=== PATIENT | female | born 1945 | race Caucasian/White ===

== ENCOUNTER 2016-03-25 08:26 | Day surgery (SDC) | payer MEDICARE, OTHER ==
[~2016-03-25] VITALS: Ht 160 cm; Wt 134.3 kg
[2016-03-25] VITALS (12 sets, daily range): BP systolic 126–156; BP diastolic 57–72
[~2016-03-25 08:26] MED LIST: ALPR0.5T7 PO; AML5T; Alprazolam PO; BUDE10.2 IH; BUME2TAB3 PO; CARV12.5 PO; CARV12.53 PO; CETI10TA17 PO; CHOL10003; CHOL20002 PO; CLIN-62 PO; DULO30CA; DULO30CA3 PO; DULO60CA58 PO; DULO60CA6 PO; ENAL5TAB PO; ENLP5T PO; EST.625T; FENT1PAT TOP; FLUT15.88 NS; FLUT16SP22 NS; FRSM20T PO; FRSM40T PO; FURO40TA4; FURO40TA4 PO; FURO80TA PO; FURO80TA3 PO; Fentanyl TD; GABA-488 PO; GBPN100C PO; HYDR-3812 PO; HYDR200T46 PO; HYDROCODONE; HYDROXYCHLOROQUINE; HYDROXYCHLOROQUINE PO; IPRA3AMP IH; IPRA3AMP11 INH; KCL10CCR; KCL10CCR PO; KCL20TCR PO; LISI20TA PO; LISI40TA PO; LSNP20T; LSNP20T PO; Levofloxacin PO; METH10TA2 PO; METO2.5T PO; METO25TA PO; MIRAPEX; MTH10T; MULT-608; NF-ESOM40C; NF-ESOM40C PO; OXYC-188 PO; OXYC1TAB95 PO; OXYC20TA3 PO; OXYC5TAB71 PO; Oxycodone Hcl PO; POTA10CA43 PO; POTA20TA15 PO; PRAM0.252 PO; PRAM0.257 PO; PRAM0.5T4 PO; PRED20TA PO; Polyethylene Glycol PO; RT-ADVAIR1 IH; TETR15DR82 OU; TRIA1CAP PO; TRIA1TAB3 PO; TRIAMTERENE/HCTZ
--- OUTSIDE RECORDS SUMMARY | 2016-03-25 08:30 | XMS REPORT | Continuity of Care Document ---
Author Author [facility] Organization [facility] Address Unknown Phone Unavailable Care Team Providers Care Curriculum And Instruction Specialist Name Role Phone Clare Parada PCP [phone] Source Comments Some departments are not documenting in the electronic medical record. If you do not see the information that you expected, contact Release of Information in the Health Information Management department at [phone] for further assistance in locating additional records.[facility] Active Allergies and Adverse Reactions Allergen Noted [...] Taken Blood Pressure 145/72 01/17/2013 3:21 PM AMUSEMENT OR RECREATION CARD CHECKER Pulse 101 01/17/2013 3:21 PM AMUSEMENT OR RECREATION CARD CHECKER Temperature 36.9 C (98.4 F) 01/17/2013 3:21 PM AMUSEMENT OR RECREATION CARD CHECKER Respiratory Rate 20 01/17/2013 3:21 PM AMUSEMENT OR RECREATION CARD CHECKER Height 1.632 m (5' 4.25") 01/17/2013 3:21 PM AMUSEMENT OR RECREATION CARD CHECKER Weight 120.838 kg (266 lb 6.4 01/17/2013 3:21 PM AMUSEMENT OR RECREATION CARD CHECKER oz) Body Mass Index 45.37 01/17/2013 3:21 PM AMUSEMENT OR RECREATION CARD CHECKER Oxygen Saturation 94% 12/01/2012 11:37 AM CDT [...]
--- OUTSIDE RECORDS SUMMARY | 2016-03-25 08:31 | XMS REPORT | Continuity of Care Document ---
Author Author [facility] Organization [facility] Address Unknown Phone Unavailable Care Team Providers Care Office Technology Instructor Name Role Phone Clare Parada PCP [phone] Source Comments Some departments are not documenting in the electronic medical record. If you do not see the information that you expected, contact Release of Information in the Health Information Management department at [phone] for further assistance in locating additional records.[facility] [...] Taken Blood Pressure 145/72 01/17/2013 3:21 PM PEDIATRIC PHYSICIAN ASSISTANT Pulse 101 01/17/2013 3:21 PM PEDIATRIC PHYSICIAN ASSISTANT Temperature 36.9 C (98.4 F) 01/17/2013 3:21 PM PEDIATRIC PHYSICIAN ASSISTANT Respiratory Rate 20 01/17/2013 3:21 PM PEDIATRIC PHYSICIAN ASSISTANT Height 1.632 m (5' 4.25") 01/17/2013 3:21 PM PEDIATRIC PHYSICIAN ASSISTANT Weight 120.838 kg (266 lb 6.4 01/17/2013 3:21 PM PEDIATRIC PHYSICIAN ASSISTANT oz) Body Mass Index 45.37 01/17/2013 3:21 PM PEDIATRIC PHYSICIAN ASSISTANT Oxygen Saturation 94% 12/01/2012 11:37 AM CDT [...]
[2016-03-25] MEDS ORDERED: NS IV 1000 ML 1,000 ML ONE (08:34)
[2016-03-25] MEDS ORDERED: LIDOCAINE 1% INJ 20 ML (XYLOCAINE) VIAL ONE (08:34)
[2016-03-25] MEDS ORDERED: HEParin (CATH LAB) 2,000 ML IV ONE (08:35)
[2016-03-25] MEDS ORDERED: NS IV 1000 ML 1,000 ML IV SCH ×2 (08:38→10:40)
--- NOTE | 2016-03-25 09:15 | Diagnostic Imaging Report ---
INDICATION: Coronary artery disease EXAMINATION: Portable chest at 9:04 am. Right IJ central line tip projects over the SVC. Heart size and pulmonary vascularity are normal. Lungs are clear. There are no effusions or pneumothoraces. IMPRESSION: No acute abnormalities in the chest. Dictated by: Dictated on workstation # [id number]
[2016-03-25 09:27] LABS: BILIRUBIN,URINE NEGATIVE (NEGATIVE); KETONES,URINE NEGATIVE (NEGATIVE); LEUKOCYTE ESTERASE ,URINE 1+ (NEGATIVE); MEAN PLATELET VOLUME 10.2 FL (7.4-10.4); NITRITE,URINE NEGATIVE (NEGATIVE); PH,URINE 7 (5-9); PROTEIN,URINE 1+ (NEGATIVE); RED BLOOD COUNT 3.94 10^6/uL (4.35-5.85); RED CELL DISTRIBUTION WIDTH 16.2 % (10.0-14.5); UROBILINOGEN,URINE NORMAL (NORMAL); WHITE BLOOD COUNT 7.7 10^3/uL (4.3-11.0)
--- NOTE | 2016-03-25 09:35 | Cardiac Procedure Note-CS/ASA ---
Pre-Procedure Note Pre-Op Procedure Note H&P Reviewed The H&P was reviewed, patient examined and no changes noted. Date H&P Reviewed: Mar 25, 2016 Time H&P Reviewed: 09:35 Conscious Sedation Pre-Proced Time Reviewed: 09:35 ASA Class: 3 Airway Mallampati Classification: (eek appropriate class) I. II. III, IV Lungs Heart ASA score ASA 1: a normal healthy patient ASA 2: a patient with a mild systemic disease (mid diabetes, controlled hypertension, obesity x ASA 3: a patient with a severe systemic disease that limits activity (angina , COPD, prior Myocardial infarction) ASA 4: a patient with an incapacitating disease that is a constant threat to life (CHF, renal failure) ASA 5: a moribund patient not expected to survive 24 hrs. (ruptured aneurysm) ASA 6: a declared brain patient whose organs are being harvested. For emergent operations, add the letter E after the classification Grade 3 Sedation Plan: Analgesia, Amnesia, Plan communicated to team members, Discussed options with patient/fam, Discussed risks with patient/fam Note The patient is an appropriate candidate to undergo the planned procedure, sedation, and anesthesia. The patient immediately re-assessed prior to indication. DEVI LONDON MD Mar 25, 2016 09:35
[2016-03-25 09:38] LABS: PROTHROMBIN TIME PATIENT 13.1 SEC (12.2-14.7)
[2016-03-25 09:46] LABS: ALANINE AMINOTRANSFERASE 17 U/L (0-55); ALBUMIN 3.7 G/DL (3.2-4.5); ANION GAP 10 MMOL/L (5-14); ASPARTATE AMINO TRANSFERASE 31 U/L (5-34); BILIRUBIN,TOTAL 0.8 MG/DL (0.1-1.0); BLOOD UREA NITROGEN 14 MG/DL (7-18); BUN/CREATININE RATIO 16; CARBON DIOXIDE 37 MMOL/L (21-32); CHLORIDE 92 MMOL/L (98-107); CHOLESTEROL 140 MG/DL (< 200); DIRECT LDL 86 MG/DL (1-129); GFR ESTIMATED > 60; GLUCOSE 89 MG/DL (70-105); POTASSIUM 3.4 MMOL/L (3.6-5.0); SODIUM 139 MMOL/L (135-145); TOTAL PROTEIN 6.5 G/DL (6.4-8.2); TRIGLYCERIDES 89 MG/DL (<150); VLDL CHOLESTEROL 18 MG/DL (5-40)
[2016-03-25] MEDS ORDERED: MIDAZOLAM 5 MG/5 ML (VERSED) VIAL ONE (09:48)
[2016-03-25] MEDS ORDERED: fentaNYL INJECTION 100 MCG/2 ML AMP ONE (09:49)
[2016-03-25] MEDS ORDERED: methylPREDNISolone 125 MG (Solu-MEDROL) VIAL ONE (09:49)
[2016-03-25] MEDS ORDERED: diphenhydrAMINE 50 MG/ML INJ (BENADRYL) ONE (09:49)
[2016-03-25] MEDS ORDERED: FLUT1DIS26 IH (09:57)
[2016-03-25] MEDS ORDERED: OSLT75C PO (09:57)
[2016-03-25] MEDS ORDERED: BUME2TAB3 PO (09:57)
[2016-03-25] MEDS ORDERED: METO2.5T PO (09:57)
[2016-03-25] MEDS ORDERED: PATIENT MAY USE OWN MEDS, ALL PO SCH (10:45)
--- NOTE | 2016-03-25 10:57 | Discharge Inst-Post CATH ---
Discharge Inst-CATH Post Cardiac Cath D/C Inst Follow Up/Plan Appointment with Dr. Carbajal's office in 2-4 weeks CARDIAC CATH DISCHARGE INSTRUCTIONS *Hold Metformin for 48 hours post heart cath. ACTIVITY * Go Home directly and rest. * Limit activity of the leg (or wrist if it was used) for 7 days including aerobics, swimming, jogging, bicycling, etc. * Restrict stair-climbing for 7 days if possible, if not, climb up with your non -cath leg, then bring together on the same step. * Avoid lifting, pushing, pulling or excessive movement of the affected extremity for 7 days. * Customary sexual activity may be resumed after 2 days-use caution not to use a position that strains or causes pain to the affected extremity. * No driving for 24 hours. * NO SMOKING. * Avoid straining for bowel movements for 7 days. * Gentle walking on level ground is allowed. * Returning to work will depend on the type of procedure and the results. Your doctor will discuss this with you. CALL YOUR DOCTOR FOR ANY OF THE FOLLOWING: *If bleeding from the puncture site occurs- Apply gentle pressure to site with clean cloth and call your doctor or EMS. * If a knot or lump forms under the skin, increases in size, or causes pain. * If bruising appears to be worsening or moving further down your leg instead of disappearing. * Temperature above 101 F. CARE OF YOUR GROIN INCISION; * Bruising or purple discoloration of the skin near the puncture site is common. * You may shower only, no bathtub bathing for 5 days. Be careful to avoid slipping as your leg may feel stiff. * If a closure device was used on your femoral artery, please see the attached guide regarding care of the device and your leg. * REMOVE the dressing from your groin the next day after your procedure in the shower. CARE OF YOUR WRIST INCISION; * Bruising or purple discoloration of the skin near the puncture site is common. * You may shower. * DO NOT submerge wrist. * Remove dressing in 24 hours. DEVI CARBAJAL MD Mar 25, 2016 10:57
--- NOTE | 2016-03-26 11:39 | DISCHARGE SUMMARY ---
PROCEDURE PHYSICIAN: DEVI LONDON DATE OF PROCEDURE: 03/25/2016 REFERRING PHYSICIAN: Dr. Clare Parada. BRIEF HISTORY: Mrs. Shetty is a 70-year-old lady with history of diabetes mellitus, hypertension and hyperlipidemia. She had extensive history with a history of peripheral arterial disease and occlusion of the anterior tibial artery on the previous procedure in 2014. She has been having significant lower extremity pain. Had abnormal KATTY and is scheduled for peripheral angiogram. PROCEDURE NOTE: After explaining the procedure to the patient, all pros and cons were explained. All questions were answered. The patient was placed on the cardiac catheterization laboratory. The left groin was prepped in a sterile fashion. 5-Argent[place] sheath was placed in the left femoral artery. I did two runoff to the left lower extremity through the sheath to evaluate her peripheral arterial disease then advanced a pigtail catheter to the abdominal aorta. Abdominal aortogram was done. At that point I used a long Storq wire, with pigtail. Was able to advance the Storq wire to the SFA, exchanged the pigtail catheter into a straight catheter placed in the common femoral artery. Runoff of the right lower extremity was done. A second runoff was done to evaluate the trifurcation and the foot. At that point the catheter was removed. Sheath was removed. Mynx device deployed. Hemostasis achieved. FINDINGS: ANATOMY: 1. Abdominal aortogram: Abdominal aortogram evaluation showed hypertensive changes in the abdominal aorta with S shaped aorta. The bifurcation was evaluated. 2. Left lower extremity runoff was done through the sheath showing mild to moderate disease. The anterior tibial artery is occluded. She still has brisk flow down to the foot. 3. Right lower extremity runoff: The right lower extremity runoff was done through the straight catheter placed in the common femoral artery. Also multiple injection and angiogram was done to evaluate the SFA then the trifurcation showing total occlusion of the anterior tibial artery. Small vessel disease distally; still brisk flow. CONCLUSION: 1. 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 2. Significant lower extremity pain noted throughout the test and while patient lying on the table probably secondary to neuropathy. DISCUSSION AND RECOMMENDATION: Medical therapy is recommended. No intervention is needed. FINAL DIAGNOSIS: 1. Lower extremity pain. 2. Peripheral neuropathy. 3. Peripheral arterial disease. 4. Hypertension. 5. Hyperlipidemia. 6. Diabetes mellitus. Job ID: [id number] Dictated Date: 03/25/2016 10:46:18 Global Vp Creative + Content Marketing Date: 03/26/2016 11:37:18/valencia
== END 2016-03-25 15:55 ==
LOC: CATH 08:26 → SURG 11:07 → CATH 15:55
PROVIDERS: ATTEND Internal Medicine Cardiovascular Disease
DX: I70.213 Atherosclerosis of native arteries of extremities with intermittent claudication, bilateral legs (principal); I70.92 Chronic total occlusion of artery of the extremities; G62.9 Polyneuropathy, unspecified; E11.40 Type 2 diabetes mellitus with diabetic neuropathy, unspecified; I10 Essential (primary) hypertension; E78.5 Hyperlipidemia, unspecified; I25.10 Atherosclerotic heart disease of native coronary artery without angina pectoris; I42.9 Cardiomyopathy, unspecified; M34.1 CR(E)ST syndrome; Z99.81 Dependence on supplemental oxygen; Z87.891 Personal history of nicotine dependence; Z79.899 Other long term (current) drug therapy
CPT/HCPCS: 36246; 36415; 71010; 75625; 75716; 80053; 80061; 81000; 85027; 85610; 85730; 87081; 93005

== ENCOUNTER 2016-05-21 09:27 | Outpatient (RCR) | payer MEDICARE, OTHER ==
--- OUTSIDE RECORDS SUMMARY | 2016-03-05 10:42 | XMS REPORT | Continuity of Care Document ---
Author Author [facility] Organization [facility] Address Unknown Phone Unavailable Care Team Providers Care Implementation Analyst Name Role Phone Clare Parada PCP [phone] Source Comments Some departments are not documenting in the electronic medical record. If you do not see the information that you expected, contact Release of Information in the Health Information Management department at [phone] for further assistance in locating additional records.[facility] Active Allergies and Adverse Reactions Allergen Noted Date Severity Reactions Comments Aspirin 10/27/2004 HIVES Allergy recorded in SMS: ASA Iodine 10/27/2004 SEE COMMENTS, ANGIOEDEMA Pt reports that she had a rxn several years ago to the iodine in salt and that she has had iv contrast after that without any problems (unclear if pre-meds were used prior to the contrast). Keflex 02/04/2010 HIVES Latex 02/04/2010 RASH, ITCHING Nsaids (Non-Steroidal 07/25/2009 HIVES Anti-Inflammatory Drug) Penicillins 10/27/2004 RASH, STOMACH UPSET, Allergy recorded in SMS: ITCHING PCN Tegretol 02/04/2010 FEVER Current Medications Prescription Sig. Disp. Refills Start End Date Status Date lisinopril (PRINIVIL, Take 40 mg by mouth Active ZESTRIL) 40 mg tablet Daily. hydroxychloroquine Take 200 mg by mouth Active (PLAQUENIL) 200 mg tablet Twice Daily. pramipexole (MIRAPEX) Take 0.25 mg by mouth Active 0.25 mg tablet Twice Daily. furosemide (LASIX) 40 mg Take 40 mg by mouth Active tablet Daily. MULTIVITAMINS Take 1 Tab by mouth At Active (MULTI-VITAMIN PO) Bedtime Daily. triamterene/hydrochloroth Take 1 Tab by mouth Active iazide (MAXZIDE) 37.5/25 Daily. mg PO tablet esomeprazole DR(+) Take 40 mg by mouth At Active (NEXIUM) 40 mg PO capsule Bedtime Daily. duloxetine DR (CYMBALTA) Take 60 mg by mouth Active 60 mg PO capsule Daily. Ascorbic Acid (VITAMIN C) Take 1,000 mg by mouth At Active 1,000 mg PO Tab Bedtime Daily. meclizine (ANTIVERT) 25 Take 25 mg by mouth twice Active mg PO tablet daily as needed. When traveling for motion sickness metoprolol XL (TOPROL XL) Take 25 mg by mouth Active 25 mg tablet daily. cholecalciferol (Vitamin Take 1,000 Units by mouth Active D3) (VITAMIN D-3) 1,000 daily. units tablet cyanocobalamin(+) Take 1,000 mcg by mouth Active (VITAMIN B-12) 500 mcg daily. tablet methadone (DOLOPHINE; Take 10 mg by mouth at Active METHADOSE) 10 mg tablet bedtime daily potassium chloride SR Take 10 mEq by mouth Active (K-DUR) 10 mEq tablet daily. CARBOXYMETHYLCELLULOSE Place 1 Drop into or Active SODIUM (REFRESH OP) around eye(s) as Needed. 1 drop each eye as needed for comfort oxyCODone-acetaminophen Take 1-2 Tabs by mouth Active (PERCOCET; ENDOCET; every 4 hours as needed ROXICET) 5-325 mg tablet Max 12 tabs/day Active Problems Problem Noted Date Chest wall pain 01/17/2013 Vitamin D insufficiency 01/22/2012 History of CREST syndrome 09/01/2011 Arthralgia 09/01/2011 Myalgia 09/01/2011 Dyspnea 09/01/2011 Fatigue 09/01/2011 Paresthesia of foot 09/01/2011 VALDO (obstructive sleep apnea) 09/01/2011 Depression 09/01/2011 HTN (hypertension) 09/01/2011 GERD (gastroesophageal reflux disease) 09/01/2011 Spinal stenosis 02/24/2010 Social History Tobacco Use Types Packs/Day Years Used Date Former Smoker Cigarettes 2 30 Quit: 02/22/1993 Smokeless Tobacco: Never Used Alcohol Use Drinks/Week oz/Week Comments No Last Filed Vital Signs Vital Sign Reading Time Taken Blood Pressure 145/72 01/17/2013 3:21 PM ROUTEMAN Pulse 101 01/17/2013 3:21 PM ROUTEMAN Temperature 36.9 C (98.4 F) 01/17/2013 3:21 PM ROUTEMAN Respiratory Rate 20 01/17/2013 3:21 PM ROUTEMAN Height 1.632 m (5' 4.25") 01/17/2013 3:21 PM ROUTEMAN Weight 120.838 kg (266 lb 6.4 01/17/2013 3:21 PM ROUTEMAN oz) Body Mass Index 45.37 01/17/2013 3:21 PM ROUTEMAN Oxygen Saturation 94% 12/01/2012 11:37 AM CDT Plan of Care Health Maintenance Due Date Last Done Comments Physical (Comprehensive) 1952 Exam Pertussis Vaccine 1956 Tetanus Vaccine 1962 Breast Cancer Screening 1985 Colorectal Cancer 06/05/1995 Screening Shingles Vaccine 2005 Osteoporosis Screening 2010 Prevnar/Pneumovax (#1) 2010 Influenza Vaccine 10/24/2015 Hepatitis C Screening Completed 01/17/2013 Results from Last 3 Months Not on file
[~2016-05-21 09:27] MED LIST changes: +FLUT1DIS26 IH; +OSLT75C PO
== END 2016-06-03 | disposition home or self-care (01) ==
LOC: WOUNDCARE 09:27
PROVIDERS: ATTEND Internal Medicine
DX: I87.331 Chronic venous hypertension (idiopathic) with ulcer and inflammation of right lower extremity (principal); I87.332 Chronic venous hypertension (idiopathic) with ulcer and inflammation of left lower extremity; E66.01 Morbid (severe) obesity due to excess calories; I89.0 Lymphedema, not elsewhere classified; R73.09 Other abnormal glucose
CPT/HCPCS: 99212; 99213

== ENCOUNTER 2016-06-25 10:15 | Outpatient (RCR) | payer MEDICARE, OTHER ==
--- OUTSIDE RECORDS SUMMARY | 2016-04-22 12:50 | XMS REPORT | Continuity of Care Document ---
Author Author [facility] Organization [facility] Address Unknown Phone Unavailable Care Team Providers Care Medical Record Librarian Name Role Phone Clare Parada PCP [phone] Source Comments Some departments are not documenting in the electronic medical record. If you do not see the information that you expected, contact Release of Information in the Health Information Management department at [phone] for further assistance in locating additional records.[facility] Active Allergies and Adverse Reactions Allergen Noted [...] Taken Blood Pressure 145/72 01/17/2013 3:21 PM INCIDENT RESPONSE COORDINATOR Pulse 101 01/17/2013 3:21 PM INCIDENT RESPONSE COORDINATOR Temperature 36.9 C (98.4 F) 01/17/2013 3:21 PM INCIDENT RESPONSE COORDINATOR Respiratory Rate 20 01/17/2013 3:21 PM INCIDENT RESPONSE COORDINATOR Height 1.632 m (5' 4.25") 01/17/2013 3:21 PM INCIDENT RESPONSE COORDINATOR Weight 120.838 kg (266 lb 6.4 01/17/2013 3:21 PM INCIDENT RESPONSE COORDINATOR oz) Body Mass Index 45.37 01/17/2013 3:21 PM INCIDENT RESPONSE COORDINATOR Oxygen Saturation 94% 12/01/2012 11:37 AM CDT [...]
[2016-04-22 13:24] VITALS: BP 93/47
[2016-05-26 13:03] VITALS: BP 153/78
[~2016-06-25] VITALS: Ht 160 cm; Wt 134.3 kg
[2016-06-25 10:41] VITALS: BP 135/82
== END 2016-07-21 | disposition home or self-care (01) ==
LOC: SDC 10:15
PROVIDERS: ATTEND Internal Medicine
DX: Z45.2 Encounter for adjustment and management of vascular access device (principal)
CPT/HCPCS: 96523

== ENCOUNTER → 2016-08-05 | Outpatient (CLI) | payer MEDICARE, OTHER ==
[2016-08-05 13:15] LABS: BASOPHILS % (AUTO) 0 % (0-10); EOSINOPHILS # (AUTO) 0.2 10^3/uL (0.0-0.3); EOSINOPHILS % (AUTO) 3 % (0-10); LYMPHOCYTES # (AUTO) 1.2 X 10^3 (1.0-4.0); LYMPHOCYTES % (AUTO) 16 % (12-44); MEAN CORPUSCULAR HEMOGLOBIN 30 PG (25-34); MEAN CORPUSCULAR HGB CONC 32 G/DL (32-36); MEAN CORPUSCULAR VOLUME 93 FL (80-99); MEAN PLATELET VOLUME 10.3 FL (7.4-10.4); MONOCYTES # (AUTO) 0.8 X 10^3 (0.0-1.0); MONOCYTES % (AUTO) 10 % (0-12); NEUTROPHILS # (AUTO) 5.6 X 10^3 (1.8-7.8); NEUTROPHILS % (AUTO) 71 % (42-75); PLATELET COUNT 184 10^3/uL (130-400); RED BLOOD COUNT 3.72 10^6/uL (4.35-5.85); RED CELL DISTRIBUTION WIDTH 15.9 % (10.0-14.5); WHITE BLOOD COUNT 7.8 10^3/uL (4.3-11.0)
[2016-08-05 13:36] LABS: ALBUMIN 3.7 GM/DL (3.2-4.5); BILIRUBIN,TOTAL 0.7 MG/DL (0.1-1.0); CALCIUM 9.8 MG/DL (8.5-10.1); CREATININE SERUM 1.06 MG/DL (0.60-1.30); ICTERUS 0.5 (0-1.9); POTASSIUM 3.2 MMOL/L (3.6-5.0)
== END ==
LOC: LAB 12:37
PROVIDERS: ATTEND Surgery
DX: L97.312 Non-pressure chronic ulcer of right ankle with fat layer exposed (principal); L02.611 Cutaneous abscess of right foot; I70.223 Atherosclerosis of native arteries of extremities with rest pain, bilateral legs; I89.0 Lymphedema, not elsewhere classified; R73.09 Other abnormal glucose; E66.01 Morbid (severe) obesity due to excess calories
CPT/HCPCS: 36415; 80053; 85025

== ENCOUNTER 2016-08-27 09:13 | Outpatient (RCR) | payer MEDICARE, OTHER | END 2016-09-02 | disposition home or self-care (01) | LOC: WOUNDCARE 09:13 | PROVIDERS: ATTEND Internal Medicine | DX: I87.331 Chronic venous hypertension (idiopathic) with ulcer and inflammation of right lower extremity (principal); I87.332 Chronic venous hypertension (idiopathic) with ulcer and inflammation of left lower extremity; E66.01 Morbid (severe) obesity due to excess calories; I89.0 Lymphedema, not elsewhere classified; R73.09 Other abnormal glucose; Z45.2 Encounter for adjustment and management of vascular access device | CPT/HCPCS: 11042; 15271; 15275; 87070; 87075; 87077; 87101; 87186; 87205; 99212 ==

== ENCOUNTER 2016-09-17 09:48 | Outpatient (RCR) | payer MEDICARE, OTHER | END 2016-09-21 16:00 | disposition home or self-care (01) | LOC: WOUNDCARE 09:48 | PROVIDERS: ATTEND Surgery | DX: I87.331 Chronic venous hypertension (idiopathic) with ulcer and inflammation of right lower extremity (principal); I87.332 Chronic venous hypertension (idiopathic) with ulcer and inflammation of left lower extremity; E66.01 Morbid (severe) obesity due to excess calories; I89.0 Lymphedema, not elsewhere classified; R73.09 Other abnormal glucose; Z45.2 Encounter for adjustment and management of vascular access device | CPT/HCPCS: 11042; 87070; 87075; 87077; 87101; 87186; 87205 ==

== ENCOUNTER 2016-09-23 15:05 | Outpatient (RCR) | payer MEDICARE, OTHER ==
[2016-07-23 11:39] VITALS: BP 137/57
[2016-08-27 10:31] VITALS: BP 148/60
[~2016-09-23] VITALS: Ht 160 cm; Wt 134.3 kg
[~2016-09-23 15:05] MED LIST changes: -NITR-65 PO
[2016-09-23 15:15] VITALS: BP 163/91
[2016-09-25] MEDS ORDERED: NS (IVPB) 250 ML ONE (13:27)
[2016-09-25] MEDS ORDERED: VANCOMYCIN 1000 MG/VIAL ONE (13:27)
[2016-10-09] MEDS ORDERED: LINEZOLID IVPB 300 ML IV ONE (13:22)
== END 2016-10-21 | disposition home or self-care (01) ==
LOC: SDC 15:05
PROVIDERS: ATTEND Internal Medicine
DX: Z45.2 Encounter for adjustment and management of vascular access device (principal); L97.412 Non-pressure chronic ulcer of right heel and midfoot with fat layer exposed
CPT/HCPCS: 96523

== ENCOUNTER → 2016-09-23 | Outpatient (CLI) | payer MEDICARE, OTHER ==
[~2016-09-23] MED LIST changes: +NITR-65 PO
== END ==
LOC: WOUNDCARE 13:09
PROVIDERS: ATTEND Surgery
DX: L97.412 Non-pressure chronic ulcer of right heel and midfoot with fat layer exposed (principal); G80.9 Cerebral palsy, unspecified; I70.234 Atherosclerosis of native arteries of right leg with ulceration of heel and midfoot; E66.01 Morbid (severe) obesity due to excess calories; I89.0 Lymphedema, not elsewhere classified; R73.09 Other abnormal glucose
CPT/HCPCS: 11042

== ENCOUNTER → 2016-09-25 | Outpatient (CLI) | payer MEDICARE, OTHER ==
[~2016-09-25] VITALS: Ht 160 cm; Wt 130.6 kg
[~2016-09-25] MED LIST changes: +VANCOMYCIN 1 GM/NS 250 ML IVPB IV ONE; +VANCOMYCIN 2000 MG/NS 500 ML IVPB IV ONE
[2016-09-25 15:30] VITALS: BP 142/58
== END ==
LOC: SDC 13:26
PROVIDERS: ATTEND Surgery
DX: L97.412 Non-pressure chronic ulcer of right heel and midfoot with fat layer exposed (principal); G60.9 Hereditary and idiopathic neuropathy, unspecified; I70.234 Atherosclerosis of native arteries of right leg with ulceration of heel and midfoot; I89.0 Lymphedema, not elsewhere classified; R73.09 Other abnormal glucose; E66.01 Morbid (severe) obesity due to excess calories; Z68.43 Body mass index [BMI] 50.0-59.9, adult
CPT/HCPCS: 96365; 96366

== ENCOUNTER → 2016-09-28 | Outpatient (CLI) | payer MEDICARE, OTHER ==
[~2016-09-28] MED LIST changes: -VANCOMYCIN 1 GM/NS 250 ML IVPB IV ONE; -VANCOMYCIN 2000 MG/NS 500 ML IVPB IV ONE
[2016-09-28 16:28] LABS: CREATININE SERUM 1.36 MG/DL (0.60-1.30)
== END ==
LOC: HH 13:21
PROVIDERS: ATTEND Surgery
DX: L97.412 Non-pressure chronic ulcer of right heel and midfoot with fat layer exposed (principal); G60.9 Hereditary and idiopathic neuropathy, unspecified
CPT/HCPCS: 80202; 82565; 84520

== ENCOUNTER → 2016-09-30 | Outpatient (CLI) | payer MEDICARE, OTHER | LOC: WOUNDCARE 13:09 | PROVIDERS: ATTEND Surgery | DX: I70.234 Atherosclerosis of native arteries of right leg with ulceration of heel and midfoot (principal); L97.412 Non-pressure chronic ulcer of right heel and midfoot with fat layer exposed; G60.9 Hereditary and idiopathic neuropathy, unspecified; I89.0 Lymphedema, not elsewhere classified; R73.09 Other abnormal glucose; E66.01 Morbid (severe) obesity due to excess calories; Z68.42 Body mass index [BMI] 45.0-49.9, adult | CPT/HCPCS: 11042 ==

== ENCOUNTER → 2016-09-30 | Outpatient (CLI) | payer MEDICARE, OTHER ==
[2016-09-30 16:28] LABS: CREATININE SERUM 1.48 MG/DL (0.60-1.30)
== END ==
LOC: HH 14:00
PROVIDERS: ATTEND Surgery
DX: L97.412 Non-pressure chronic ulcer of right heel and midfoot with fat layer exposed (principal); Z51.81 Encounter for therapeutic drug level monitoring
CPT/HCPCS: 80202; 82565; 83036; 84520

== ENCOUNTER → 2016-10-07 | Outpatient (CLI) | payer MEDICARE, OTHER | LOC: WOUNDCARE 13:09 | PROVIDERS: ATTEND Surgery | DX: I70.234 Atherosclerosis of native arteries of right leg with ulceration of heel and midfoot (principal); L97.412 Non-pressure chronic ulcer of right heel and midfoot with fat layer exposed; G60.9 Hereditary and idiopathic neuropathy, unspecified; I89.0 Lymphedema, not elsewhere classified; R73.09 Other abnormal glucose; E66.01 Morbid (severe) obesity due to excess calories; Z68.42 Body mass index [BMI] 45.0-49.9, adult | CPT/HCPCS: 11042 ==

== ENCOUNTER → 2016-10-14 | Outpatient (CLI) | payer MEDICARE, OTHER ==
[~2016-10-14] MED LIST changes: +NITR-65 PO
== END ==
LOC: WOUNDCARE 13:02
PROVIDERS: ATTEND Surgery
DX: L97.412 Non-pressure chronic ulcer of right heel and midfoot with fat layer exposed (principal); I70.234 Atherosclerosis of native arteries of right leg with ulceration of heel and midfoot; G60.9 Hereditary and idiopathic neuropathy, unspecified; I89.0 Lymphedema, not elsewhere classified; E66.01 Morbid (severe) obesity due to excess calories; Z68.42 Body mass index [BMI] 45.0-49.9, adult
CPT/HCPCS: 11042

== ENCOUNTER → 2016-10-21 | Outpatient (CLI) | payer MEDICARE, OTHER | LOC: WOUNDCARE 13:01 | PROVIDERS: ATTEND Surgery | DX: L97.412 Non-pressure chronic ulcer of right heel and midfoot with fat layer exposed (principal); I70.234 Atherosclerosis of native arteries of right leg with ulceration of heel and midfoot; G60.9 Hereditary and idiopathic neuropathy, unspecified; I89.0 Lymphedema, not elsewhere classified; E66.01 Morbid (severe) obesity due to excess calories; Z68.42 Body mass index [BMI] 45.0-49.9, adult | CPT/HCPCS: 11042; 87070; 87075; 87077; 87186; 87205 ==

== ENCOUNTER → 2016-10-28 | Outpatient (CLI) | payer MEDICARE, OTHER | LOC: WOUNDCARE 12:57 | PROVIDERS: ATTEND Surgery | DX: L97.412 Non-pressure chronic ulcer of right heel and midfoot with fat layer exposed (principal); I70.234 Atherosclerosis of native arteries of right leg with ulceration of heel and midfoot; G60.9 Hereditary and idiopathic neuropathy, unspecified; I89.0 Lymphedema, not elsewhere classified; E66.01 Morbid (severe) obesity due to excess calories; Z68.42 Body mass index [BMI] 45.0-49.9, adult | CPT/HCPCS: 11042 ==

== ENCOUNTER → 2016-11-04 | Outpatient (CLI) | payer MEDICARE, OTHER | LOC: WOUNDCARE 13:06 | PROVIDERS: ATTEND Surgery | DX: L97.412 Non-pressure chronic ulcer of right heel and midfoot with fat layer exposed (principal); I70.234 Atherosclerosis of native arteries of right leg with ulceration of heel and midfoot; G60.9 Hereditary and idiopathic neuropathy, unspecified; I89.0 Lymphedema, not elsewhere classified; E66.01 Morbid (severe) obesity due to excess calories | CPT/HCPCS: 11042 ==

== ENCOUNTER → 2016-11-11 | Outpatient (CLI) | payer MEDICARE, OTHER | LOC: WOUNDCARE 12:59 | PROVIDERS: ATTEND Surgery | DX: L97.412 Non-pressure chronic ulcer of right heel and midfoot with fat layer exposed (principal); I70.234 Atherosclerosis of native arteries of right leg with ulceration of heel and midfoot; G60.9 Hereditary and idiopathic neuropathy, unspecified; I89.0 Lymphedema, not elsewhere classified; E66.01 Morbid (severe) obesity due to excess calories; Z68.42 Body mass index [BMI] 45.0-49.9, adult | CPT/HCPCS: 11042 ==

== ENCOUNTER → 2016-11-18 | Outpatient (CLI) | payer MEDICARE, OTHER ==
--- NOTE | 2016-11-18 19:02 | Diagnostic Imaging Report ---
EXAMINATION: Three views of the right foot. INDICATION: Ulcer along the bottom of the right foot. FINDINGS: There are no significant erosive changes or periosteal reaction seen in the calcaneus or other bones to suggest radiographic signs of osteomyelitis. No soft tissue air is seen. There is soft tissue swelling along the dorsal aspect of the mid foot. No fracture, dislocation or radiopaque foreign body is seen. Mild calcaneal spur is seen. IMPRESSION: No osseous erosions to suggest osteomyelitis. Dictated by: Dictated on workstation # [id number]
== END ==
LOC: RAD 15:07
PROVIDERS: ATTEND Surgery
DX: L97.412 Non-pressure chronic ulcer of right heel and midfoot with fat layer exposed (principal); I70.234 Atherosclerosis of native arteries of right leg with ulceration of heel and midfoot; G60.9 Hereditary and idiopathic neuropathy, unspecified; I89.0 Lymphedema, not elsewhere classified; E66.01 Morbid (severe) obesity due to excess calories
CPT/HCPCS: 73630

== ENCOUNTER → 2016-11-18 | Outpatient (CLI) | payer MEDICARE, OTHER ==
[~2016-11-18] MED LIST changes: -NITR-65 PO
== END ==
LOC: WOUNDCARE 12:55
PROVIDERS: ATTEND Surgery
DX: I70.234 Atherosclerosis of native arteries of right leg with ulceration of heel and midfoot (principal); L97.412 Non-pressure chronic ulcer of right heel and midfoot with fat layer exposed; G60.9 Hereditary and idiopathic neuropathy, unspecified; I89.0 Lymphedema, not elsewhere classified; E66.01 Morbid (severe) obesity due to excess calories; Z68.42 Body mass index [BMI] 45.0-49.9, adult
CPT/HCPCS: 11042; 87070; 87075; 87205

== ENCOUNTER 2016-11-25 13:31 | Outpatient (RCR) | payer MEDICARE, OTHER ==
[~2016-11-25] VITALS: Ht 160 cm; Wt 130.6 kg
[~2016-11-25 13:31] MED LIST changes: +ACHD5005 PO; -HYDR-3812 PO
[2016-11-25 14:00] VITALS: BP 137/53
[2016-12-16] MEDS ORDERED: NITR-65 PO (15:36)
== END 2017-02-23 | disposition home or self-care (01) ==
LOC: SDC 13:31
PROVIDERS: ATTEND Internal Medicine
DX: Z45.2 Encounter for adjustment and management of vascular access device (principal); I87.2 Venous insufficiency (chronic) (peripheral); I70.234 Atherosclerosis of native arteries of right leg with ulceration of heel and midfoot; L97.412 Non-pressure chronic ulcer of right heel and midfoot with fat layer exposed; G60.9 Hereditary and idiopathic neuropathy, unspecified; I89.0 Lymphedema, not elsewhere classified; E66.01 Morbid (severe) obesity due to excess calories; Z68.42 Body mass index [BMI] 45.0-49.9, adult
CPT/HCPCS: 11042; 96523

== ENCOUNTER → 2016-11-25 | Outpatient (CLI) | payer MEDICARE, OTHER | LOC: WOUNDCARE 14:10 | PROVIDERS: ATTEND Surgery | DX: I70.234 Atherosclerosis of native arteries of right leg with ulceration of heel and midfoot (principal); L97.412 Non-pressure chronic ulcer of right heel and midfoot with fat layer exposed; G60.9 Hereditary and idiopathic neuropathy, unspecified; I89.0 Lymphedema, not elsewhere classified; E66.01 Morbid (severe) obesity due to excess calories; Z68.42 Body mass index [BMI] 45.0-49.9, adult | CPT/HCPCS: 11042 ==

== ENCOUNTER → 2016-12-09 | Outpatient (CLI) | payer MEDICARE, OTHER ==
[~2016-12-09] MED LIST changes: -ACHD5005 PO; +HYDR-3812 PO
== END ==
LOC: WOUNDCARE 13:11
PROVIDERS: ATTEND Surgery
DX: L97.412 Non-pressure chronic ulcer of right heel and midfoot with fat layer exposed (principal); I70.234 Atherosclerosis of native arteries of right leg with ulceration of heel and midfoot; G60.9 Hereditary and idiopathic neuropathy, unspecified; I89.0 Lymphedema, not elsewhere classified; E66.01 Morbid (severe) obesity due to excess calories; Z68.42 Body mass index [BMI] 45.0-49.9, adult
CPT/HCPCS: 11042

== ENCOUNTER 2016-12-14 11:52 | Emergency (ER) | payer MEDICARE, OTHER ==
[~2016-12-14] VITALS: Ht 162.6 cm; Wt 123.4 kg
--- OUTSIDE RECORDS SUMMARY | 2016-12-14 11:58 | XMS REPORT | Clinical Summary ---
Author Author [facility] Organization [facility] Address Unknown Phone Unavailable Care Team Providers Care Skating Carhop Name Role Phone PCP Unavailable Source Comments Some departments are not documenting in the electronic medical record. If you do not see the information that you expected, contact Release of Information in the Health Information Management department at [phone] for further assistance in locating additional records.[facility] Allergies Active Allergy Reactions Severity Noted Date Comments Aspirin HIVES 10/27/2004 Allergy recorded in SMS: ASA Iodine SEE COMMENTS, ANGIOEDEMA 10/27/2004 Pt reports that she had a rxn several years ago to the iodine in salt and that she has had iv contrast after that without any problems (unclear if pre-meds were used prior to the contrast). Cephalexin HIVES 02/04/2010 Latex RASH, ITCHING 02/04/2010 Nsaids (Non-Steroidal HIVES 07/25/2009 Anti-Inflammatory Drug) Penicillins RASH, STOMACH UPSET, 10/27/2004 Allergy recorded in SMS: ITCHING PCN Carbamazepine FEVER 02/04/2010 Current Medications Prescription Sig. Disp. Refills Start [...] (gastroesophageal reflux disease) 09/01/2011 Spinal stenosis 02/24/2010 Family History Medical History Relation Name Comments Cancer Brother larynx Coronary Artery Disease Brother Heart Disease Brother Stroke Brother Coronary Artery Disease Father Heart Disease Father Diabetes Mother Stroke Mother Cancer Sister breast Relation Name Status Comments Brother Father Mother Sister Social History Tobacco Use Types Packs/Day Years Used Date Former Smoker Cigarettes 2 30 Quit: 02/22/1993 Smokeless Tobacco: Never Used Alcohol Use Drinks/Week oz/Week Comments No Sex Assigned at Date Recorded Not on file Last Filed Vital Signs Vital Sign Reading Time Taken Blood Pressure 145/72 01/17/2013 3:21 PM WEAPONS MECHANIC Pulse 101 01/17/2013 3:21 PM WEAPONS MECHANIC Temperature 36.9 C (98.4 F) 01/17/2013 3:21 PM WEAPONS MECHANIC Respiratory Rate 20 01/17/2013 3:21 PM WEAPONS MECHANIC Oxygen Saturation 94% 12/01/2012 11:37 AM CDT Inhaled Oxygen - - Concentration Weight 120.8 kg (266 lb 6.4 oz) 01/17/2013 3:21 PM WEAPONS MECHANIC Height 163.2 cm (5' 4.25") 01/17/2013 3:21 PM WEAPONS MECHANIC Body Mass Index 45.37 01/17/2013 3:21 PM WEAPONS MECHANIC Plan of Treatment Health Maintenance Due Date Last Done Comments PHYSICAL (COMPREHENSIVE) 1952 EXAM PERTUSSIS VACCINE 1956 TETANUS VACCINE 1962 BREAST CANCER SCREENING 1985 COLORECTAL CANCER 06/05/1995 SCREENING SHINGLES VACCINE 2005 OSTEOPOROSIS SCREENING 2010 PREVNAR/PNEUMOVAX (#1) 2010 INFLUENZA VACCINE 09/22/2016 HEPATITIS C SCREENING Completed 01/17/2013 Results Not on filefrom Last 3 Months
[2016-12-14 12:00] VITALS: BP 136/123
--- NOTE | 2016-12-14 12:08 | ED General ---
General Stated Complaint: AMS Source of Information: Patient Exam Limitations: No Limitations (ROE RATLIFF APRN) History of Present Illness Time Seen by Provider: 12:04 Initial Comments To ER per EMS from [facility] with c/o intermittent altered mental status. She does wear Oxygen around the clock at the assisted. Symptoms just noticed this morning. EMS noted bradycardia intermittently en route to the hospital with a low of 35 and a high in the 80s. Blood pressure 90s/50s but pt did appear to be mentating normally en route to the hospital so no intervention was performed for the bradycardia. Pt is on bumex and metolazone for CHF and nursing staff states that she's lost quite a bit of fluid weight as her legs they state are usually about twice as big as they are currently. She denies nausea, diaphoresis, chest pain, or dyspnea. No syncope or near syncope. Timing/Duration: 1-2 Days Severity: Moderate Associated Systoms: Weakness (ROE RATLIFF APRN) Allergies and Home Medications Allergies Coded Allergies: NSAIDS (Non-Steroidal Anti-Inflamma (Unverified Allergy, Mild, 03/18/09) Penicillins (Verified Allergy, Unknown, 01/03/06) Sulfa (Sulfonamide Antibiotics) (Verified Allergy, Unknown, 01/03/06) aspirin (Verified Allergy, Unknown, 01/03/06) carbamazepine (Verified Allergy, Unknown, 09/20/06) cephalexin (Verified Allergy, Unknown, 01/03/06) iodine (Verified Allergy, Unknown, 01/03/06) latex (Unverified Allergy, Unknown, 06/21/13) Home Medications Bumetanide 2 Mg Tablet, 2 MG PO DAILY, (Reported) Carvedilol 12.5 Mg Tablet, 12.5 MG PO BID, (Reported) Cetirizine HCl 10 Mg Tablet, 10 MG PO BID, (Reported) Cholecalciferol (Vitamin D3) 2,000 Unit Capsule, 2,000 UNIT PO HS, (Reported) Duloxetine HCl 60 Mg Capsule.dr, 60 MG PO DAILY, (Reported) Enalapril Maleate 5 Mg Tablet, 5 MG PO DAILY, (Reported) Esomeprazole Mag Trihydrate 40 Mg Capsule.dr, 40 MG PO HS, (Reported) Fluticasone Propionate 16 Gm [place].susp, 1 SPRAY NS DAILY, (Reported) Fluticasone/Salmeterol 1 Each Blst.w.dev, 1 PUFF IH BID, (Reported) Gabapentin 300 Mg Capsule, 300 MG PO HS, (Reported) Hydroxychloroquine Sulfate 200 Mg Tab, 200 MG PO BID, (Reported) Ipratropium/Albuterol Sulfate 3 Ml Ampul.neb, 3 ML IH Q6H PRN for SHORTNESS OF BREATH, (Reported) Metolazone 2.5 Mg Tablet, 2.5 MG PO Q72H, (Reported) Oseltamivir Phosphate 75 Mg Cap, 75 MG PO BID for 5 Days, (Reported) FILLED #10 03-20-16 STARTED 03-21-16 (#3 CAPSULES LEFT IN BOX) Oxycodone HCl 20 Mg Tablet, 20 MG PO Q6H PRN for PAIN, (Reported) Potassium Chloride 10 Meq Capsule.er, 30 MEQ PO BID, (Reported) TAKES 3 (10MEQ) CAPSULES Pramipexole Di-Hcl 0.25 Mg Tablet, 0.25 MG PO DAILY, (Reported) Pramipexole Di-Hcl 0.25 Mg Tablet, 0.5 MG PO HS, (Reported) TAKES 2 (0.25MG) TABLETS Constitutional: see HPI EENTM: see HPI Respiratory: no symptoms reported Cardiovascular: see HPI, chest pain Genitourinary: no symptoms reported Musculoskeletal: no symptoms reported Skin: no symptoms reported Psychiatric/Neurological: No Symptoms Reported Hematologic/Lymphatic: No Symptoms Reported (ROE RATLIFF APRN) Past Uzkcqln-Bgoanj-Wuxqel Hx Patient Social History Type Used: Cigarettes Former Smoker, Quit: Mar 25, 1994 Recent Hopitalizations: No (ROE RATLIFF APRN) Immunizations Up To Date Tetanus Booster (TDap): Unknown PED Vaccines UTD: No Date of Pneumonia Vaccine: Feb 24, 2011 (ROE RATLIFF APRN) Seasonal Allergies Seasonal Allergies: No (ROE RATLIFF APRN) Surgeries Surgeries: Adenoidectomy, Appendectomy, Hysterectomy, Lumpectomy, Orthopedic, Tonsillectomy, Tubal Ligation (ROE RATLIFF APRN) Respiratory Respiratory Disorders: Asthma, Sleep Apnea, COPD Currently Using CPAP: Yes (ROE RATLIFF APRN) Cardiovascular Cardiac Disorders: Chronic Edema/Swelling, High Cholesterol, Hypertension (ROE RATLIFF APRN) Neurological Neurological Disorders: Neuropathy (ROE RATLIFF APRN) Reproductive System Hx Reproductive Disorders: No Sexually Transmitted Disease: No HIV/AIDS: No Female Reproductive Disorders: Denies (ROE RATLIFF APRN) Gastrointestinal Gastrointestinal Disorders: Gastroesophageal Reflux, Gall Bladder Disease (ROE RATLIFF APRN) Musculoskeletal Musculoskeletal Disorders: Degenerate Disk Disease, Arthritis, Rheumatoid Arthritis, Chronic Back Pain (ROE RATLIFF APRN) HEENT Loss of Vision: Bilateral Hearing Impairment: Denies (ROE RATLIFF APRN) Cancer Cancer: Breast (ROE RATLIFF APRN) Psychosocial Behavioral Health Disorders: Anxiety, Depression (ROE RATLIFF APRN) Blood Transfusions Adverse Reaction to a Blood Tr: No (ROE RATLIFF APRN) Family Medical History Significant Family History: No Pertinent Family Hx Family Medial History: Cancer G8 SISTER Congestive heart failure 19 FATHER Family history: Cardiovascular disease 19 FATHER 19 MOTHER G8 BROTHER Family history: Coronary thrombosis 19 FATHER 19 MOTHER Family history: Hypertension 19 MOTHER Stroke 19 MOTHER G8 BROTHER (ROE RATLIFF APRN) Family Medial History: Cancer G8 SISTER Congestive heart failure 19 FATHER Family history: Cardiovascular disease 19 FATHER 19 MOTHER G8 BROTHER Family history: Coronary thrombosis 19 FATHER 19 MOTHER Family history: Hypertension 19 MOTHER Stroke 19 MOTHER G8 BROTHER (RASHAUN DAVID MD) Physical Exam Vital Signs Capillary Refill : (ROE RATLIFF APRN) General Appearance: No Apparent Distress, WD/WN Eyes: Bilateral Eye Normal Inspection, Bilateral Eye PERRL, Bilateral Eye EOMI HEENT: PERRL/EOMI, TMs Normal Neck: Full Range of Motion, Normal Inspection Respiratory: No Accessory Muscle Use, No Respiratory Distress Cardiovascular: Regular Rate, Rhythm (regular in the 80s), Normal Peripheral Pulses Gastrointestinal: Non Tender, Soft Extremity: Other (+2-3 edema of BLE. ) Neurologic/Psychiatric: Alert, Oriented x3 Skin: Normal Color, Warm/Dry (ROE RATLIFF APRN) Extremity: Normal Range of Motion, Non Tender (RASHAUN DAVID MD) Progress/Results/Core Measures Results/Orders Lab Results Laboratory Tests Test 12/14/16 12:00 Range/Units White Blood Count 6.7 4.3-11.0 10^3/uL Red Blood Count 3.10 L 4.35-5.85 10^6/uL Hemoglobin 9.3 L 11.5-16.0 G/DL Hematocrit 29 L 35-52 % Mean Corpuscular Volume 94 80-99 FL Mean Corpuscular Hemoglobin 30 25-34 PG Mean Corpuscular Hemoglobin Concent 32 32-36 G/DL Red Cell Distribution Width 14.2 10.0-14.5 % Platelet Count 146 130-400 10^3/uL Mean Platelet Volume 12.3 H 7.4-10.4 FL Neutrophils (%) (Auto) 59 42-75 % Lymphocytes (%) (Auto) 23 12-44 % Monocytes (%) (Auto) 15 H 0-12 % Eosinophils (%) (Auto) 3 0-10 % Basophils (%) (Auto) 1 0-10 % Neutrophils # (Auto) 3.9 1.8-7.8 X 10^3 Lymphocytes # (Auto) 1.5 1.0-4.0 X 10^3 Monocytes # (Auto) 1.0 0.0-1.0 X 10^3 Eosinophils # (Auto) 0.2 0.0-0.3 10^3/uL Basophils # (Auto) 0.0 0.0-0.1 10^3/uL Prothrombin Time 14.7 12.2-14.7 SEC INR Comment 1.1 0.8-1.4 Activated Partial Thromboplast Time 28 24-35 SEC Sodium Level 132 L 135-145 MMOL/L Potassium Level 8.4 *H 3.6-5.0 MMOL/L Chloride Level 102 98-107 MMOL/L Carbon Dioxide Level 23 21-32 MMOL/L Anion Gap 7 5-14 MMOL/L Blood Urea Nitrogen 83 H 7-18 MG/DL Creatinine 7.84 H 0.60-1.30 MG/DL Estimat Glomerular Filtration Rate 5 BUN/Creatinine Ratio 11 Glucose Level 92 70-105 MG/DL Calcium Level 8.7 8.5-10.1 MG/DL Magnesium Level 2.2 1.8-2.4 MG/DL Total Bilirubin 0.5 0.1-1.0 MG/DL Aspartate Amino Transf (AST/SGOT) 19 5-34 U/L Alanine Aminotransferase (ALT/SGPT) 14 0-55 U/L Alkaline Phosphatase 72 40-136 U/L Myoglobin 281.9 H 10.0-92.0 NG/ML Troponin I < 0.30 <0.30 NG/ML B-Type Natriuretic Peptide 2020.7 H <100.0 PG/ML Total Protein 6.4 6.4-8.2 GM/DL Albumin 3.4 3.2-4.5 GM/DL Thyroid Stimulating Hormone (TSH) 2.92 0.35-4.94 UIU/ML Free Thyroxine 1.11 0.70-1.48 NG/DL (RASHAUN DAVID MD) My Orders Orders - RASHAUN DAVID MD Ekg Tracing (12/14/16 11:56) (RASHAUN DAVID MD) Progress Note : Progress Note I had seen and evaluated the patient with Roe Ratliff APRN. Patient is in a bradycardic rhythm with widened QRS concerning for sideways. Lab resulted and shows the potassium 8.4. Creatinine is also grossly elevated. One amp of calcium chloride given as well as 1 amp of D50 and 10 units of insulin IV. Patient states that she has not urinated since last night. She has 1 L of normal saline running. Patient's primary corrosion control fitter, Dr. Carbajal is in the room and in agreement with plan. Due to patient's grossly elevated creatinine and potassium, patient will need evaluation from nephrology which is a service is not available here. This was discussed with the patient and family and they agree. They requested transfer to [facility] in [facility] and this hospital has services available. Transcutaneous spacer has been placed but not turned on. 1240: Blood pressure 122/64 with heart rate of 35-45 and QRS complex has significantly narrowed after initiation of calcium. Patient will also get Kayexalate 45 g by mouth. Family and room and is informed of significant findings and concerns and are in agreement with transfer. 1255: I did discuss the case with [place], [place], Dr. Bergman, critical care information systems security manager. We reviewed the case and current therapy. He accepts patient for transfer. We will go by ground ambulance. 1305: Heart rate 65 with O2 sat 98 percent on 2 L via nasal cannula. Blood pressure 111/89. QRS complexes are significantly more narrow and appropriate with sinus rhythm noted on monitor. Barney catheter has been placed. Pending transfer via ground EMS, [facility]. (RASHAUN DAVID MD) ECG Initial ECG Impression Date: Dec 14, 2016 Initial ECG Impression Time: 12:04 Initial ECG Rate: 50 Initial ECG Rhythm: A Fib/Flutter Comment Atrial fibrillation with rate of 50. EKG evaluating rate as both QRS complex and T waves due to markedly widened QRS complex sine wave type. No evidence of ST elevation ND. Change from previous of 25 March 2016.. Interpreted by me. EKG : EKG Time: 12:39 Rate: 50 Rhythm: Normal Sinus Comment Sinus rhythm with widened QRS complex. Left ventricular hypertrophy. No evidence of ST elevation ND. Improving from previous EKG. Rate noted at 99 but I think this is double read of the QRS/T complexes. Interpreted by me. (RASHAUN DAVID MD) Diagnostic Imaging Diagonstic Imaging: Xray Plain Films/CT/US/NM/MRI: chest Comments [facility]IA [facility] [place], [place] NAME: SHANNAN SAEED [facility] REC#: [id number] PT STATUS: REG ER : 1945 PHYSICIAN: ROE RATLIFF APRN ADMIT DATE: 12/14/16/ER Draft Date of Exam:12/14/16 CHEST 1 VIEW, AP/PA ONLY INDICATION: Preop for peripheral angiography. Comparison with 03/25/2016. FINDINGS: There is cardiomegaly. Pulmonary vasculature is slightly prominent with mild prominence interstitial markings. There are no consolidated infiltrate. No pleural effusions. Right central line remains unchanged. IMPRESSION: Cardiomegaly with findings suggesting mild pulmonary venous congestion which has developed since previous exam. Dictated on workstation # [id number] Dict: 12/14/16 1230 Trans: 12/14/16 1247 [facility] [id number] Interpreted by: ЮЛИЯ HAYES MD Electronically signed by: (RASHAUN DAVID MD) Critical Care Note Critical Care Start Time: 12:30 Stop Time: 12:50 Total Time (minutes) 20 (ROE RATLIFF APRN) Departure Impression Impression: Primary Impression: Acute renal failure Qualified Codes: N17.9 - Acute kidney failure, unspecified Additional Impressions: Hyperkalemia Symptomatic bradycardia CHF (congestive heart failure) Qualified Codes: I50.9 - Heart failure, unspecified Disposition: T-TRM HOSP Condition: Stable Transfer Transfer Time: 12:55 Transfer Facility: [place], [place], Dr. Bergman accepting Method of Transfer: EMS (RASHAUN DAVID MD) Departure-Patient Inst. Referrals: SIENNA MADERA DO (PCP/Family) Primary Care Physician ROE RATLIFF APRN Dec 14, 2016 12:08 RASHAUN DAVID MD Dec 14, 2016 12:50
[2016-12-14 12:11] LABS: BASOPHILS % (AUTO) 1 % (0-10); EOSINOPHILS # (AUTO) 0.2 10^3/uL (0.0-0.3); EOSINOPHILS % (AUTO) 3 % (0-10); LYMPHOCYTES # (AUTO) 1.5 X 10^3 (1.0-4.0); LYMPHOCYTES % (AUTO) 23 % (12-44); MEAN CORPUSCULAR HEMOGLOBIN 30 PG (25-34); MEAN CORPUSCULAR HGB CONC 32 G/DL (32-36); MEAN CORPUSCULAR VOLUME 94 FL (80-99); MEAN PLATELET VOLUME 12.3 FL (7.4-10.4); MONOCYTES % (AUTO) 15 % (0-12); NEUTROPHILS # (AUTO) 3.9 X 10^3 (1.8-7.8); NEUTROPHILS % (AUTO) 59 % (42-75); PLATELET COUNT 146 10^3/uL (130-400); RED CELL DISTRIBUTION WIDTH 14.2 % (10.0-14.5); WHITE BLOOD COUNT 6.7 10^3/uL (4.3-11.0)
[2016-12-14 12:21] LABS: INR 1.1 (0.8-1.4); PROTHROMBIN TIME PATIENT 14.7 SEC (12.2-14.7)
[2016-12-14] MEDS ORDERED: DEXTROSE 50% 50 ML (IMS) SYR ONE (12:24)
[2016-12-14] MEDS ORDERED: inSUlin (REGULAR) HUMAN 1 UNIT/0.01 ML (CHARGE PER UNIT) ONE (12:25)
[2016-12-14] MEDS ORDERED: SOD POLYSTERENE 15 GM/60 ML (KAYEXALATE) UNIT DOSE ONE (12:29)
[2016-12-14 12:30] LABS: ALANINE AMINOTRANSFERASE 14 U/L (0-55); ALBUMIN 3.4 GM/DL (3.2-4.5); ANION GAP 7 MMOL/L (5-14); ASPARTATE AMINO TRANSFERASE 19 U/L (5-34); BILIRUBIN,TOTAL 0.5 MG/DL (0.1-1.0); BLOOD UREA NITROGEN 83 MG/DL (7-18); BUN/CREATININE RATIO 11; CALCIUM 8.7 MG/DL (8.5-10.1); CARBON DIOXIDE 23 MMOL/L (21-32); CHLORIDE 102 MMOL/L (98-107); CREATININE SERUM 7.84 MG/DL (0.60-1.30); GFR ESTIMATED 5; GLUCOSE 92 MG/DL (70-105); MAGNESIUM 2.2 MG/DL (1.8-2.4); SODIUM 132 MMOL/L (135-145); TOTAL PROTEIN 6.4 GM/DL (6.4-8.2)
--- OUTSIDE RECORDS SUMMARY | 2016-12-14 12:31 | XMS REPORT | Clinical Summary ---
Author Author User, AMELIA Sullivan [facility] Address Unknown Phone Allergies, Adverse Reactions, Alerts Allergy Name Reaction Description Start Date Severity Status Provider NEURONTIN AMS Critical No Longer Active Clare Lanny Parada MOBIC Edema and itching. Critical Active Clare Lanny Parada LIPITOR Critical Active Clare Lanny Parada PEANUTS Critical Active Clare Lanny Parada ASPIRIN Dermatological problems, e.g., rash, hives Critical Active Clare Lanny Parada SULFA Gastrointestinal problems, e.g., nausea, vomiting, diarrhea Critical Active Clare Lanny Parada IODINE Critical Active Clare Lanny Parada KEFLEX Critical Active Clare Lanny Parada PENICILLIN Critical Active Clare Lanny Parada TEGRETOL Critical Active Clare Lanny Parada Conditions or Problems Problem Name Problem Code Onset Date Status Entry Date Provider Comment Standard Description Annotate CREST SYNDROME 710.9 Resolved Clare Parada Unspecified diffuse connective tissue disease HYPERTENSION, BENIGN ESSENTIAL, CONTROLLED 401.1 Active Clare Parada Benign essential hypertension HYPERSOMNIA 780.54 Active Clare Parada Hypersomnia, unspecified SNORING 786.09 Resolved Clare Parada Other dyspnea and respiratory abnormality OBESITY 278.00 Resolved Clare Parada Obesity, unspecified WEIGHT GAIN, ABNORMAL 783.1 Active Clare Parada Abnormal weight gain GASTROESOPHAGEAL REFLUX DISEASE, CHRONIC 530.81 Active Clare Parada Esophageal reflux FATIGUE 780.79 Resolved Clare Parada Other malaise and fatigue RESTLESS LEG SYNDROME, HX OF V12.49 Active Clare Parada Personal history of other disorders of nervous system and sense organs HRT V07.4 Active Clare Parada Hormone replacement therapy (postmenopausal) SLEEP APNEA, CHRONIC 780.57 Resolved Clare Paarda Unspecified sleep apnea CELLULITIS 682.9 Resolved Clare Parada Cellulitis and abscess of unspecified sites KNEE PAIN 719.46 Resolved Clare Parada Pain in joint involving lower leg SINUS CONGESTION 478.1 Resolved Clare Parada Other diseases of nasal cavity and sinuses INGROWN TOENAIL 703.0 Resolved Clare Parada Ingrowing nail ARTHRITIS V13.4 Resolved Clare Parada Personal history of arthritis DERMATITIS 692.9 Resolved Clare Parada Contact dermatitis and other eczema, unspecified cause BACK PAIN 724.5 Resolved Clare Parada Backache, unspecified HIP PAIN 719.45 Resolved Clare Parada Pain in joint involving pelvic region and thigh left MUSCULOSKELETAL PAIN 781.99 Resolved Clare Parada Other symptoms involving nervous and musculoskeletal systems PNEUMONIA 486 Resolved Clare Parada Pneumonia, organism unspecified SCREENING FOR OSTEOPOROSIS V82.81 Resolved Clare Parada Screening for osteoporosis OSTEOPENIA 733.90 Resolved Clare Parada Disorder of bone and cartilage, unspecified HERPES ZOSTER, WITH COMPLICATION 053.8 Resolved Clare Parada Herpes zoster with unspecified complication HYPERGLYCEMIA, MILD 790.6 Resolved Clare Parada Other abnormal blood chemistry SINUSITIS 473.9 Resolved Clare Parada Unspecified sinusitis (chronic) FEVER 780.6 Resolved Clare Parada Fever and other physiologic disturbances of temperature regulation IMMUNODEFICIENCY, 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 Clare Parada Selective IgM immunodeficiency SINUSITIS, RECURRENT 473.9 Resolved Clare Parada Unspecified sinusitis (chronic) RESPIRATORY FAILURE, ACUTE 518.81 Resolved Clare Parada Acute respiratory failure DISEASE, HYPERTENSIVE HEART NOS, W/O HF 402.90 Active Clare Parada Hypertensive heart disease, unspecified, without heart failure URTICARIA, ACUTE 708.9 Resolved Clare Parada Unspecified urticaria BREAST MASS, RIGHT 611.72 Resolved Clare Parada Lump or mass in breast SCIATICA, LEFT 724.3 Resolved Clare Parada Sciatica SINUSITIS, SPHENOIDAL, ACUTE 461.3 Resolved Clare Parada Acute sphenoidal sinusitis RALES 786.7 Resolved Clare Parada Abnormal chest sounds CHRONIC PAIN V15.89 Active Clare Parada Other specified personal history presenting hazards to health EDEMA LEG 782.3 Resolved Clare Parada Edema DIARRHEA, ACUTE 787.91 Resolved Clare Parada Diarrhea FEVER 780.6 Resolved Clare Parada Fever and other physiologic disturbances of temperature regulation CHEILOSIS 528.5 Resolved Clare Parada Diseases of lips VITAMIN D DEFICIENCY 268.9 Active Clare Parada Unspecified vitamin D deficiency NEUROPATHY, IDIOPATHIC PERIPHERAL 356.9 Resolved Clare Parada Unspecified idiopathic peripheral neuropathy ABNORMAL MAMMOGRAM 793.80 Resolved Clare Parada Abnormal mammogram, unspecified ADENOCARCINOMA, BREAST 174.9 Active Clare Parada Malignant neoplasm of breast (female), unspecified CREST SYNDROME 710.9 Active Clare Parada Unspecified diffuse connective tissue disease VITAMIN B12 DEFICIENCY 266.2 Resolved Clare Parada Other B-complex deficiencies DIZZINESS 780.4 Resolved Clare Parada Dizziness and giddiness VACCINE AGAINST STREPTOCOCCUS PNEUMONIAE V03.82 Resolved Clare Parada Need for prophylactic vaccination against Streptococcus pneumoniae [pneumococcus] DYSPNEA 786.09 Resolved Clare Parada Other dyspnea and respiratory abnormality SPINAL STENOSIS, LUMBAR 724.02 Resolved Clare Parada Spinal stenosis of lumbar region without neurogenic claudication ONYCHIA, TOE 681.11 Resolved Clare Parada Onychia and paronychia of toe WELL WOMAN V70.0 Resolved Clare Parada Routine general medical examination at a health care facility LYMPHEDEMA, RIGHT LEG 457.1 Resolved Clare Parada Other lymphedema HEALTH SCREENING V70.0 Resolved Clare Parada Routine general medical examination at a health care facility URINARY FREQUENCY 788.41 Resolved Clare Parada Urinary frequency UTI 599.0 Resolved Clare Parada Urinary tract infection, site not specified VAGINITIS NOS 616.10 Resolved Clare Parada Vaginitis and vulvovaginitis, unspecified CELLULITIS 682.9 Resolved Clare Parada Cellulitis and abscess of unspecified sites STASIS DERMATITIS, CHRONIC 459.81 Resolved Clare Parada Venous (peripheral) insufficiency, unspecified EDEMA LEG 782.3 Resolved Clare Parada Edema OTHER LYMPHEDEMA 457.1 Active Clare Parada Other lymphedema CELLULITIS 682.9 Resolved Clare Parada Cellulitis and abscess of unspecified sites ACUTE KIDNEY FAILURE WITH LESION OF RENAL MEDULLARY [PAPILLARY] NECROSIS 584.7 Resolved Clare Parada Acute kidney failure with lesion of renal medullary [papillary] necrosis RESPIRATORY FAILURE, ACUTE 518.81 Resolved Clare Parada Acute respiratory failure CONGESTIVE HEART FAILURE (CHF) 428.0 Active Clare Parada Congestive heart failure, unspecified OTHER ATOPIC DERMATITIS AND RELATED CONDITIONS 691.8 Resolved Clare Parada Other atopic dermatitis and related conditions SLEEP APNEA, OBSTRUCTIVE, SEVERE 780.57 Active Clare Parada Unspecified sleep apnea Medication List Medication Instructions Start Date Stop Date Generic Name NDC Status Provider Patient Instruction OXYCODONE HCL 20 MG TABS 1 PO Q 6 HRS PRN PAIN OXYCODONE HCL 01750479169 Active Clare Parada POTASSIUM CHLORIDE ER 10 MEQ CR-CAPS 3 PO BID POTASSIUM CHLORIDE 91045327598 Active Clare Parada OXYCODONE HCL 20 MG TABS 1 PO Q6hrs prn pain OXYCODONE HCL 65163616003 No Longer Active Clare Lanny Parada LEVAQUIN 750 MG TABS 1 PO DAILY X 3 DAYS LEVOFLOXACIN 98305780458 No Longer Active Clare Lanny Parada ADVAIR HFA 115-21 MCG/ACT AERO 2 PUFFS IH BID FLUTICASONE- SALMETEROL 24501981820 Active Clare Lanny Parada IPRATROPIUM-ALBUTEROL 0.5-2.5 (3) MG/3ML SOLN 3 ML INH RT QID IPRATROPIUM-ALBUTEROL 45553184552 Active Clare Lanny Parada PREDNISONE 20 MG TABS 2 PO DAILY ONCE DAILY X 3 DAYS, THEN 1 PO DAIY X 4 DAYS , PREDNISONE 65393561393 No Longer Active Clare Lanny Parada FUROSEMIDE 80 MG TABS 1 PO BID FUROSEMIDE 93223661762 Active Clare Lanny Parada MULTIVITAMINS TABS 1 PO QD MULTIPLE VITAMIN 19526055214 No Longer Active Clare Lanny Parada VITAMIN D 1000 UNIT TABS 1 PO Daily CHOLECALCIFEROL 88129128512 No Longer Active Clare Lanny Parada VITAMIN B-12 1000 MCG TABS 1 PO daily CYANOCOBALAMIN 05464950217 No Longer Active Clare Lanny Parada VITAMIN C 500 MG TAB 1 PO BID ASCORBIC ACID 61439469461 No Longer Active Clare Lanny Parada KHLOE/MAG CITRATE 250-125 MG TABS 1 PO daily. CALCIUM-MAGNESIUM 65369467628 No Longer Active Clare Lanny Parada MIRALAX POWD MIX POWDER WITH 8OZS WATER PO BID POLYETHYLENE GLYCOL 3350 18970770191 Active Clare Lanny Parada FENTANYL 25 MCG/HR PT72 1 PATCH Q 72 HRS FENTANYL 84124221742 Active Clare Lanny Parada ALPRAZOLAM 0.5 MG TABS 1 PO Q 4HRS PRN ANXIETY ALPRAZOLAM 49632391754 Active Clare Lanny Parada VASOTEC 5 MG TABS 1 PO DAILY ENALAPRIL MALEATE 85518382788 Active Nikki Blanca COREG 12.5 MG TABS 1 PO BID CARVEDILOL 37492024791 Active Nikki Blanca VISINE 0.05 % SOLN 2-3 DROPS OU Q 6-8 HRS PRN DRY EYES TETRAHYDROZOLINE HCL 31765181663 Active Clare Lanny Parada PERCOCET 10-325 MG TABS 1 PO TID prn OXYCODONE- ACETAMINOPHEN 49048620222 No Longer Active Clare Lanny Parada METHADONE HCL 10 MG TABS Take 3 po QHS METHADONE HCL 79019733937 No Longer Active Clare Lanny Parada TOPROL XL 25 MG TB24 1 PO daily METOPROLOL SUCCINATE 64319630928 No Longer Active Clare Lanny Parada LISINOPRIL 20 MG TABS 1 PO Daily LISINOPRIL 92293511232 No Longer Active Clare Lanny Parada LASIX 40 MG TAB 1 PO daily as directed FUROSEMIDE 33230598262 No Longer Active Clare Lanny Parada CLEOCIN 150 MG CAPS 1 po daily until further notice CLINDAMYCIN HCL 30559091489 No Longer Active Clare Lanny Parada NEURONTIN 300 MG CAP 1 PO QHS GABAPENTIN 29089704792 Active Clare Lanny Parada MIRAPEX 0.25 MG TABS 1 PO QAM and 2 PO QHS PRAMIPEXOLE DIHYDROCHLORIDE 85306825431 Active Nikki Blanca DYAZIDE 37.5-25 MG CAP 1 PO daily TRIAMTERENE-HCTZ 86808430487 No Longer Active Clare Lanny Parada TRIAMCINOLONE ACETONIDE 0.1 % CREA apply BID prn TRIAMCINOLONE ACETONIDE (TOP) 93196561628 No Longer Active Claredany Parada DOXYCYCLINE HYCLATE 100 MG CAP 1 po BID DOXYCYCLINE HYCLATE 23295590778 No Longer Active Claredany Parada DOXYCYCLINE HYCLATE 100 MG CAP 1 po BID DOXYCYCLINE HYCLATE 89513315257 No Longer Active Claredany Parada BETAMETHASONE DIPROPIONATE AUG 0.05 % CREA Apply to affected areas on legs BID until resolved BETAMETHASONE DIPROPIONATE AUG 55332552892 No Longer Active Claredany Parada PYRIDIUM 200 MG TAB 1 PO TID prn urinary urgency PHENAZOPYRIDINE HCL 59053383907 No Longer Active Claredany Parada METROGEL-VAGINAL 0.75 % GEL 1 applicator full per vagina QHS for 7 nights METRONIDAZOLE 25804569800 No Longer Active Clare Parada LEVAQUIN 500 MG TAB 1 PO QD LEVOFLOXACIN 17528232829 No Longer Active Claredany Parada PYRIDIUM 200 MG TAB 1 PO TID prn urinary urgency PHENAZOPYRIDINE HCL 84585166396 No Longer Active Nikki Blanca NYSTATIN 866339 UNIT/GM POWD apply over the Nystatin cream BID NYSTATIN 74394747771 No Longer Active Claredany Parada NYSTATIN 227021 UNIT/GM CREA apply to affected areas BID for 7 days NYSTATIN 93295609507 No Longer Active Clare Parada PREDNISONE 10 MG TAB 3 po at one time daily for 3 days then 2 po daily at once for 3 days then 1 po daily for 5 days PREDNISONE 15504465349 No Longer Active Nikki Blanca TRANSDERM-SCOP 1.5 MG PT72 1 patch q 72 hours prn air sickness SCOPOLAMINE BASE 28950125251 No Longer Active Clare Lanny Parada NYAMYC 607866 UNIT/GM POWD apply to affected areas BID prn 11/28 NYSTATIN 51176860576 No Longer Active Clare Lanny Parada PYRIDIUM 200 MG TAB 1 PO TID prn urinary urgency PHENAZOPYRIDINE HCL 63328944216 No Longer Active Clare Lanny Parada VALIUM 2 MG TAB 1/2 -1 po QHS prn neck spasm DIAZEPAM 52874708539 No Longer Active Clare Lanny Parada XANAX 0.25 MG TABS 1 PO Q6hrs prn ALPRAZOLAM 95208164211 No Longer Active Clare JI'S NASAL SPRAY (DEXAMETHASONE, GENTAMICIN, SALINE) 2 puffs each nostril TID for [address] MARTINES NASAL SPRAY ( DEXAMETHASONE, GENTAMICIN, SALINE) No Longer Active Clare Lanny Parada LEVAQUIN 500 MG TAB 1 PO QD LEVOFLOXACIN 43146214236 No Longer Active Clare Lanny Parada PREMARIN 0.625 MG TABS 1 po qd ESTROGENS CONJUGATED 00344667994 No Longer Active Clare Lanny Parada ROBITUSSIN A-C 10-100 MG/5ML SYRUP 1 teaspoon PO Q 4-6 hr prn ROBITUSSIN A-C 10-100 MG/5ML SYRUP No Longer Active Clare JI'S NASAL SPRAY (DEXAMETHASONE, GENTAMICIN, SALINE) 2 puffs each nostril TID for [address] MARTINES NASAL SPRAY ( DEXAMETHASONE, GENTAMICIN, SALINE) No Longer Active Clare Parada LEVAQUIN 500 MG TAB 1 PO QD LEVOFLOXACIN 78171680313 No Longer Active Clare Lanny Parada SODIUM SALICYLATE ELEANOR 500mg PO BID SODIUM SALICYLATE 42018972178 No Longer Active Clare Lanny Parada BUSPAR 5 MG TABS 1 PO BID BUSPIRONE HCL 20597018324 No Longer Active Clare Lanny Parada EPIPEN 1:1000 CANDI DIRECTED EPINEPHRINE HCL ( ANAPHYLAXIS) 55978233227 No Longer Active Clare Lanny Parada TRIAMCINOLONE ACETONIDE 0.1 % LOTN apply to affected areas BID prn TRIAMCINOLONE ACETONIDE 45407010393 No Longer Active Clare Lanny Parada ALEXI 180 MG TABS 1 PO QD PRN itching FEXOFENADINE HCL 55893358071 No Longer Active Clare Lanny Parada K-DUR 10 MEQ TAB CR (POTASSIUM CHLORIDE) COATED CAPSULE 1 PO BID K-DUR 10 MEQ TAB CR (POTASSIUM CHLORIDE) COATED CAPSULE No Longer Active Clare Lanny Parada MYCOSTATIN 957020 UNIT/GM POWD apply to affected areas BID for 7 days NYSTATIN 76629284263 No Longer Active Clare Lanny Parada NYSTATIN 794581 UNIT/GM CREA apply to affected area BID for 7 days NYSTATIN 87976857376 No Longer Active Claredany Parada LORTAB 5 5-500 MG TABS 1 to 2 PO Q6hrs prn ACETAMINOPHEN-HYDROCODONE 63098686095 No Longer Active Clare Lanny Parada XANAX 0.25 MG TABS 1 PO Q6hrs prn tension ALPRAZOLAM 80837362552 No Longer Active Clare Lanny Parada FLEXERIL 10 MG TAB 1 PO TID prn CYCLOBENZAPRINE HCL 05750227719 No Longer Active Clare Lanny Parada LEVAQUIN 500 MG TAB 1 PO QD LEVOFLOXACIN 76763457724 No Longer Active Lcare Lanny JI'S NASAL SPRAY (DEXAMETHASONE, GENTAMICIN, SALINE) 2 puffs each nostril TID for [address] JI'S NASAL SPRAY ( DEXAMETHASONE, GENTAMICIN, SALINE) No Longer Active Clare Parada TRANSDERM-SCOP 1.5 MG PT72 1 patch q 72 hours for air sickness SCOPOLAMINE BASE 38213857371 No Longer Active Claredany Parada BIAXIN 500 MG TAB 1 PO BID for 7 days CLARITHROMYCIN 16166711484 No Longer Active Krishna Tapia PERCOCET 5-325 MG TAB 1 PO Q6hrs prn pain OXYCODONE- ACETAMINOPHEN 98557885547 No Longer Active Claredany Parada HYDROCODONE-ACETAMINOPHEN 5-500 MG TABS 1 po TID prn for restless legs 07/02 HYDROCODONE-ACETAMINOPHEN 47768580337 No Longer Active Clare Parada LEVAQUIN 500 MG TAB 1 PO QD LEVOFLOXACIN 03164290563 No Longer Active Clare Parada BIAXIN 500 MG TAB 1 PO BID CLARITHROMYCIN 46019003114 No Longer Active Clare JI[facility] NASAL SPRAY (DEXAMETHASONE, GENTAMICIN, SALINE) 2 puffs each nostril TID for [address] JI'Tri NASAL SPRAY ( DEXAMETHASONE, GENTAMICIN, SALINE) No Longer Active Clare Parada ROBITUSSIN A-C 10-100 MG/5ML SYRUP 1 teaspoon PO Q 4-6 hr prn ROBITUSSIN A-C 10-100 MG/5ML SYRUP 99881960063 No Longer Active Nikki Laureanotis NEURONTIN 100 MG CAP 1 PO TID prn nerve pain GABAPENTIN 23477876674 No Longer Active Claredany Parada TRANSDERM-SCOP PT72 as directed SCOPOLAMINE BASE PT72 37458641254 No Longer Active Claredany Parada XANAX 0.25 MG TABS 1/2 to 1 po q 6 hrs prn anxiety ALPRAZOLAM 89984951275 No Longer Active Claredany Parada DILAUDID 2 MG TABS 1 every 4-6 hrs for severe break through pain HYDROMORPHONE HCL 16761836515 No Longer Active Clare Lanny Parada MS CONTIN 15 MG TB12 1 PO Q 12 hours scheduled MORPHINE SULFATE 35917284711 No Longer Active Clare Lanny Parada K-DUR 10 MEQ TAB CR 1 PO BID POTASSIUM CHLORIDE 08272397566 No Longer Active Claredany Parada NORVASC 10 MG TABS 1 PO daily AMLODIPINE BESYLATE 13659821039 No Longer Active Clare Parada DARVOCET-N 100 100-650 MG TAB 1 PO Q 6 hrs PRN PROPOXYPHENE N-APAP 66422378002 No Longer Active Claredany Parada ADVAIR DISKUS 100-50 MCG/DOSE MISC 1 puff BID FLUTICASONE-SALMETEROL 32122932828 No Longer Active Clare Parada PREDNISONE 20 MG TAB 3 PO daily for 2 days, 2 PO daily for 2 days, 1 PO daily for 2 days PREDNISONE 77882709580 No Longer Active Clare Parada KENALOG 0.1 % CREA apply to affected areas BID TRIAMCINOLONE ACETONIDE 66467038375 No Longer Active Albino Avila ROBITUSSIN A-C 10-100 MG/5ML SYRUP 5cc PO Q 4-6 hr prn ROBITUSSIN A-C 10-100 MG/5ML SYRUP 09690198632 No Longer Active Clare Parada E.E.S. 400 400 MG TABS 1 po QID x 7 days ERYTHROMYCIN ETHYLSUCCINATE 92925479468 No Longer Active Nikki Blanca ROBITUSSIN A-C 10-100 MG/5ML SYRUP 5cc PO Q 4-6 hr prn ROBITUSSIN A-C 10-100 MG/5ML SYRUP 60790226030 No Longer Active Nikki MARTINES NASAL SPRAY (DEXAMETHASONE, GENTAMICIN, SALINE) 2 puffs each nostril TID for [address] MARTINES NASAL SPRAY ( DEXAMETHASONE, GENTAMICIN, SALINE) No Longer Active Nikki Blanca BIAXIN XL PAC 500 MG TB24 2 pills at same time daily for 7 days CLARITHROMYCIN 33931080757 No Longer Active Clare Parada ATROVENT 0.06 % SOLN 2 puffs each nostril TID for runny nose 2007 IPRATROPIUM BROMIDE 30037074056 No Longer Active Clare Parada PREDNISONE 20 MG TAB 3 PO daily for 2 days, 2 PO daily for 2 days, 1 PO daily for 3 days PREDNISONE 23315178974 No Longer Active Clare Parada CLINDAMYCIN HCL 150 MG CAPS 1 every 6 hours CLINDAMYCIN HCL 16755581075 No Longer Active Clare MARTINES NASAL SPRAY (DEXAMETHASONE, GENTAMICIN, SALINE) 2 puffs each nostril TID DR. MARTINES NASAL SPRAY (DEXAMETHASONE, GENTAMICIN, SALINE) No Longer Active Nadeem Mooney CIPRO 500 MG TAB 1 PO BID for 7 days CIPROFLOXACIN HCL 10485851451 No Longer Active Nadeem Mooney PREDNISONE 20 MG TAB 3 po daily for three days, 2 po daily for two days, 1 po daily for two days PREDNISONE 78929468879 No Longer Active Clare Parada CYMBALTA 60 MG CPEP 1 PO daily DULOXETINE HCL 54228442222 Active Nikki Blanca HYDROCHLOROTHIAZIDE 25 MG TAB 1 PO QD HYDROCHLOROTHIAZIDE 87297615439 No Longer Active Clare Parada MOBIC 7.5 MG TABS 1 PO daily MELOXICAM 53717513159 No Longer Active Clare Lanny Parada PROPOXYPHENE N-APAP 100-650 MG TABS 1 po TID PRN PROPOXYPHENE N-APAP 65149476942 No Longer Active Clare Lanny Parada MECLIZINE HCL 25 MG TAB 1 PO Q6hrs prn MECLIZINE HCL 55557546833 No Longer Active Clare Lanny Parada MULTIVITAMINS CAPS 1 PO QD MULTIPLE VITAMIN 90260856145 No Longer Active Clare Lanny Parada LIMBREL 250 MG CAPS 1 PO Q8hrs prn FLAVOCOXID 07597023426 No Longer Active Clare Lanny Parada PHENTERMINE HCL 37.5 MG CAPS 1 PO Daily PHENTERMINE HCL 02348307242 No Longer Active Clare Lanny Parada ROBITUSSIN A-C 10-100 MG/5ML SYRUP 5cc PO Q 4-6 hr prn ROBITUSSIN A-C 10-100 MG/5ML SYRUP 68722830579 No Longer Active Clare Lanny Parada PREDNISONE 20 MG TAB 3 PO daily for 2 days, 2 PO daily for 2 days, 1 PO daily for 3 days PREDNISONE 25023184225 No Longer Active Clare Lanny Parada BIAXIN 500 MG TAB 1 PO BID for 7 days CLARITHROMYCIN 87820456396 No Longer Active Clare Lanny Parada PREDNISONE 20 MG TAB 3 po daily for 2 days 2 daily for 3 days then discontinue PREDNISONE 47293276060 No Longer Active Clare Lanny Parada ATROVENT 0.06 % SOLN 2 puff each nostil TID IPRATROPIUM BROMIDE 89003111456 No Longer Active Clare Lanny Parada LEVAQUIN 500 MG TABS 1 po BID x 7 days LEVOFLOXACIN 49096673119 No Longer Active Clare MARTINES NASAL SPRAY (DEXAMETHASONE, GENTAMICIN, SALINE) 2 puffs each nostril TID DR. MARTINES NASAL SPRAY (DEXAMETHASONE, GENTAMICIN, SALINE) No Longer Active Clare Parada ACYCLOVIR 800 MG TABS 1 PO 5 times a day for 7 days ACYCLOVIR 89451214487 No Longer Active Clare MARTINES NASAL SPRAY (DEXAMETHASONE, GENTAMICIN, SALINE) 2 puffs each nostril TID for [address] MARTINES NASAL SPRAY ( DEXAMETHASONE, GENTAMICIN, SALINE) No Longer Active Nikki Blanca CODICLEAR DH 5-100 MG/5ML SYRP 5 cc Po Q4-6prn HYDROCODONE-GUAIFENESIN 87549342581 No Longer Active Radha Fonseca NEXIUM 40 MG CPDR 1 PO QD ESOMEPRAZOLE MAGNESIUM 77177408420 Active Nikki Blanca CYMBALTA 30 MG CPEP 1 PO daily DULOXETINE HCL 90344848671 No Longer Active Clare Parada PHENTERMINE HCL 37.5 MG CAPS 1 PO Daily PHENTERMINE HCL 51442537018 No Longer Active Clare Parada TRANSDERM-SCOP 1.5 MG PT72 1 as directed preventing air sickness SCOPOLAMINE BASE 64457404999 No Longer Active Clare Parada ROBITUSSIN A-C 10-100 MG/5ML SYRUP 5cc PO Q 4-6 hr prn ROBITUSSIN A-C 10-100 MG/5ML SYRUP 36713114442 No Longer Active Clare MARTINES NOSE SPRAY 2 puffs each nostril TID x [address] MARTINES NOSE SPRAY No Longer Active Nikki Blanca LEVAQUIN 500 MG TABS 1 po daily x 10 days LEVOFLOXACIN 51629882789 No Longer Active Nikki Blanca CHLORPHENIRAMINE MALEATE 4 MG TABS 1 PO Q6hrs prn for congestion CHLORPHENIRAMINE MALEATE 52686998833 No Longer Active Nikki Blanca ATROVENT 0.06 % SOLN 2 puffs ech nostril BID for 7 days IPRATROPIUM BROMIDE 56646972216 No Longer Active Nikki JI'Tri NASAL SPRAY 2 puffs each nostril TID x [address] JI'Tri NASAL SPRAY No Longer Active Nikki Blanca MERIDIA 10 MG CAPS 1 PO daily SIBUTRAMINE HCL MONOHYDRATE 68243242973 No Longer Active Clare Lanny Parada ATROVENT 0.06 % SOLN 2 puffs BID for 5 days for runny nose 04/14 IPRATROPIUM BROMIDE 48675010326 No Longer Active Radha Fonseca ZITHROMAX Z-CROW 250 MG TABS as directed AZITHROMYCIN 14933315267 No Longer Active Radha Fonseca PHENTERMINE HCL 37.5 MG CAPS 1 PO Daily PHENTERMINE HCL 13715679489 No Longer Active Claredany Parada TRANSDERM-SCOP 1.5 MG PT72 1 as needed for air sickness SCOPOLAMINE BASE 63543277904 No Longer Active Clare Lanny Parada BLUE GOO Apply q 6-8 hrs. prn BLUE GOO No Longer Active Clare Lanny Parada PHENTERMINE HCL 37.5 MG TABS 1 PO QD PHENTERMINE HCL 23177197801 No Longer Active Clare Lanny Parada RONDEC DM 45-4-15 MG/5ML SYRP 5cc PO QID PSEUDOEPH- BROMPHEN-DM 40342715907 No Longer Active Clare Lanny Parada LEVAQUIN 500 MG TAB 1 PO QD LEVOFLOXACIN 47502826343 No Longer Active Clare Patricioner ZITHROMAX Z-CROW 250 MG TABS as directed AZITHROMYCIN 87468354617 No Longer Active Clare Ca Parada REQUIP 1 MG TABS 1 po QID prn ROPINIROLE HYDROCHLORIDE 93776756113 No Longer Active Clare Ca Parada PROTONIX 40 MG TBEC 1 po daily PANTOPRAZOLE SODIUM 31725612304 No Longer Active Nikki Blanca HYDROXYCHLOROQUINE SULFATE 200 MG TABS 1 po BID HYDROXYCHLOROQUINE SULFATE 87268344471 Active Nikki Blanca Immunizations Vaccine Administration Date Value Standard Description Influenza vaccine given allergic influenza virus vaccine, unspecified formulation pneumococcal immunization administered Done pneumococcal polysaccharide vaccine, 23 valent pneumococcal immunization administered 1st dose pneumococcal polysaccharide vaccine, 23 valent Vital Signs Date Name Value Unit Range Description blood pressure, diastolic - 8462-4 70 mm[Hg] BP longo blood pressure, systolic - 8480-6 130 mm[Hg] BP sys pulse rate E&M - 8867-4 60 /min Heart rate respiratory rate E&M - 9279-1 14 /min Resp rate weight E&M - 3141-9 260 [lb_av] Weight Measured blood pressure, diastolic - 8462-4 60 mm[Hg] BP longo blood pressure, systolic - 8480-6 149 mm[Hg] BP sys pulse rate E&M - 8867-4 84 /min Heart rate respiratory rate E&M - 9279-1 14 /min Resp rate temperature E&M 98.6 [degF] Body temperature weight E&M - 3141-9 258 [lb_av] Weight Measured blood pressure, diastolic - 8462-4 70 mm[Hg] BP longo blood pressure, systolic - 8480-6 130 mm[Hg] BP sys pulse rate E&M - 8867-4 70 /min Heart rate respiratory rate E&M - 9279-1 14 /min Resp rate blood pressure, diastolic - 8462-4 66 mm[Hg] BP longo blood pressure, systolic - 8480-6 136 mm[Hg] BP sys pulse rate E&M - 8867-4 74 /min Heart rate respiratory rate E&M - 9279-1 14 /min Resp rate weight E&M - 3141-9 260 [lb_av] Weight Measured blood pressure, diastolic - 8462-4 80 mm[Hg] BP longo blood pressure, systolic - 8480-6 140 mm[Hg] BP sys pulse rate E&M - 8867-4 84 /min Heart rate respiratory rate E&M - 9279-1 14 /min Resp rate weight E&M - 3141-9 160 [lb_av] Weight Measured blood pressure, diastolic - 8462-4 70 mm[Hg] BP longo blood pressure, systolic - 8480-6 140 mm[Hg] BP sys pulse rate E&M - 8867-4 96 /min Heart rate respiratory rate E&M - 9279-1 14 /min Resp rate blood pressure, diastolic - 8462-4 68 mm[Hg] BP longo blood pressure, systolic - 8480-6 132 mm[Hg] BP sys pulse rate E&M - 8867-4 74 /min Heart rate respiratory rate E&M - 9279-1 14 /min Resp rate weight E&M - 3141-9 275 [lb_av] Weight Measured blood pressure, diastolic - 8462-4 60 mm[Hg] BP longo blood pressure, systolic - 8480-6 145 mm[Hg] BP sys pulse rate E&M - 8867-4 70 /min Heart rate respiratory rate E&M - 9279-1 14 /min Resp rate temperature E&M 97.9 [degF] Body temperature blood pressure, diastolic - 8462-4 67 mm[Hg] BP longo blood pressure, systolic - 8480-6 135 mm[Hg] BP sys pulse rate E&M - 8867-4 84 /min Heart rate respiratory rate E&M - 9279-1 14 /min Resp rate temperature E&M 97.9 [degF] Body temperature weight E&M - 3141-9 275 [lb_av] Weight Measured blood pressure, diastolic - 8462-4 65 mm[Hg] BP longo blood pressure, systolic - 8480-6 130 mm[Hg] BP sys pulse rate E&M - 8867-4 75 /min Heart rate respiratory rate E&M - 9279-1 14 /min Resp rate blood pressure, diastolic - 8462-4 68 mm[Hg] BP longo blood pressure, systolic - 8480-6 130 mm[Hg] BP sys pulse rate E&M - 8867-4 76 /min Heart rate respiratory rate E&M - 9279-1 14 /min Resp rate blood pressure, diastolic - 8462-4 80 mm[Hg] BP longo blood pressure, systolic - 8480-6 145 mm[Hg] BP sys pulse rate E&M - 8867-4 90 /min Heart rate respiratory rate E&M - 9279-1 14 /min Resp rate temperature E&M 98.6 [degF] Body temperature blood pressure, diastolic - 8462-4 70 mm[Hg] BP longo blood pressure, systolic - 8480-6 155 mm[Hg] BP sys pulse rate E&M - 8867-4 100 /min Heart rate respiratory rate E&M - 9279-1 14 /min Resp rate temperature E&M 98.6 [degF] Body temperature weight E&M - 3141-9 260 [lb_av] Weight Measured Diagnostic Results Date Name Value Unit Range Description Clinical Lists Update: CBC,CMP - Chemistry alanine aminotransferase (SGPT), serum 18 U/L aspartate aminotransferase (SGOT), serum 20 U/L protein, total, serum 6.3 g/dL potassium, serum 2.9 mmol/L creatinine, serum 0.80 mg/dL carbon dioxide, venous blood 32 mmol/L chloride, serum 95 mmol/L calcium, serum 9.3 mg/dL urea nitrogen, blood 14 mg/dL alkaline phosphatase, serum 64 U/L albumin, serum 3.6 g/dL Estimated Glomerular Filtration Rate (calc) >60 mL/min/1.73m2 glucose, plasma fasting 123 mg/dL sodium, serum 141 mmol/L bilirubin, serum, total 0.7 mg/dL alanine aminotransferase (SGPT), serum 16 U/L aspartate aminotransferase (SGOT), serum 28 U/L protein, total, serum 6.6 g/dL potassium, serum 3.3 mmol/L creatinine, serum 0.80 mg/dL carbon dioxide, venous blood 31 mmol/L chloride, serum 100 mmol/L calcium, serum 9.5 mg/dL urea nitrogen, blood 11 mg/dL alkaline phosphatase, serum 74 U/L albumin, serum 3.8 g/dL Estimated Glomerular Filtration Rate (calc) 54 mL/min/1.73m2 glucose, plasma fasting 97 mg/dL sodium, serum 142 mmol/L bilirubin, serum, total 0.8 mg/dL alanine aminotransferase (SGPT), serum 10 U/L aspartate aminotransferase (SGOT), serum 22 U/L protein, total, serum 5.9 g/dL potassium, serum 3.5 mmol/L creatinine, serum 1.01 mg/dL carbon dioxide, venous blood 32 mmol/L chloride, serum 100 mmol/L calcium, serum 9.1 mg/dL urea nitrogen, blood 11 mg/dL alkaline phosphatase, serum 68 U/L albumin, serum 3.4 g/dL Estimated Glomerular Filtration Rate (calc) 45 mL/min/1.73m2 glucose, plasma fasting 110 mg/dL sodium, serum 141 mmol/L bilirubin, serum, total 0.7 mg/dL alanine aminotransferase (SGPT), serum 18 U/L aspartate aminotransferase (SGOT), serum 22 U/L protein, total, serum 5.7 g/dL potassium, serum 3.9 mmol/L creatinine, serum 1.18 mg/dL carbon dioxide, venous blood 29 mmol/L chloride, serum 101 mmol/L calcium, serum 9.0 mg/dL urea nitrogen, blood 14 mg/dL alkaline phosphatase, serum 71 U/L albumin, serum 3.3 g/dL Estimated Glomerular Filtration Rate (calc) >60 mL/min/1.73m2 glucose, plasma fasting 107 mg/dL sodium, serum 136 mmol/L bilirubin, serum, total 0.7 mg/dL alanine aminotransferase (SGPT), serum 26 U/L aspartate aminotransferase (SGOT), serum 27 U/L protein, total, serum 5.7 g/dL potassium, serum 3.5 mmol/L creatinine, serum 0.84 mg/dL carbon dioxide, venous blood 29 mmol/L chloride, serum 99 mmol/L calcium, serum 9.3 mg/dL urea nitrogen, blood 12 mg/dL alkaline phosphatase, serum 69 U/L albumin, serum 3.4 g/dL Estimated Glomerular Filtration Rate (calc) >60 mL/min/1.73m2 glucose, plasma fasting 110 mg/dL sodium, serum 139 mmol/L bilirubin, serum, total 1.3 mg/dL Clinical Lists Update: CBC,CMP - Hematology red blood cell distribution width 16.0 % hematocrit, blood 37 % leukocyte count, blood 6.5 10*3/mm3 erythrocyte (RBC) count 4.05 10*6/mm3 platelet count 200 10*3/mm3 hemoglobin, blood 10.4 g/dL hematocrit, blood 34 % red blood cell distribution width 16.6 % mean corpuscular volume, RBC 85 fL leukocyte count, blood 6.8 10*3/mm3 erythrocyte (RBC) count 3.82 10*6/mm3 platelet count 184 10*3/mm3 hemoglobin, blood 10.0 g/dL hematocrit, blood 33 % red blood cell distribution width 15.9 % mean corpuscular volume, RBC 86 fL leukocyte count, blood 6.0 10*3/mm3 erythrocyte (RBC) count 3.68 10*6/mm3 platelet count 164 10*3/mm3 hemoglobin, blood 9.7 g/dL hematocrit, blood 32 % red blood cell distribution width 15.8 % mean corpuscular volume, RBC 84 fL leukocyte count, blood 5.4 10*3/mm3 erythrocyte (RBC) count 3.98 10*6/mm3 platelet count 175 10*3/mm3 hemoglobin, blood 10.4 g/dL hematocrit, blood 34 % red blood cell distribution width 15.4 % mean corpuscular volume, RBC 83 fL leukocyte count, blood 12.2 10*3/mm3 erythrocyte (RBC) count 4.40 10*6/mm3 platelet count 175 10*3/mm3 hemoglobin, blood 11.5 g/dL mean corpuscular volume, RBC 84 fL Clinical Lists Update: CBC,CMP,FLP,TSH,HGA1C - Chemistry Estimated Glomerular Filtration Rate (calc) 30 mL/min/1.73m2 glucose, plasma fasting 90 mg/dL cholesterol/HDL ratio, serum, percent 3.2 anion gap, serum 12 sodium, serum 132 mmol/L triglyceride, serum, fasting 87 mg/dL bilirubin, serum, total 0.7 mg/dL alanine aminotransferase (SGPT), serum 22 U/L aspartate aminotransferase (SGOT), serum 32 U/L protein, total, serum 6.6 g/dL potassium, serum 4.6 mmol/L LDL cholesterol, serum 90 mg/dL thyroid stimulating hormone, serum 1.92 u[iU]/mL hemoglobin A1C, blood, as % of total hemoglobin 6.0 % HDL cholesterol, serum 48.0 mg/dL creatinine, serum 1.8 mg/dL carbon dioxide, venous blood 29.0 mmol/L cholesterol, serum 155 mg/dL chloride, serum 96 mmol/L calcium, serum 9.2 mg/dL urea nitrogen, blood 32 mg/dL alkaline phosphatase, serum 77 U/L albumin, serum 4.1 g/dL Clinical Lists Update: CBC,CMP,FLP,TSH,HGA1C - Hematology red blood cell distribution width 17.0 % mean corpuscular volume, RBC 89 fL leukocyte count, blood 7.1 10*3/mm3 erythrocyte (RBC) count 4.13 10*6/mm3 platelet count 227 10*3/mm3 hemoglobin, blood 10.9 g/dL hematocrit, blood 37 % Clinical Lists Update: IN PT LABS - Chemistry creatinine, serum 0.98 mg/dL carbon dioxide, venous blood 30 mmol/L chloride, serum 97 mmol/L calcium, serum 9.3 mg/dL urea nitrogen, blood 29 mg/dL alkaline phosphatase, serum 54 U/L albumin, serum 3.5 g/dL potassium, serum 3.6 mmol/L protein, total, serum 6.1 g/dL aspartate aminotransferase (SGOT), serum 24 U/L alanine aminotransferase (SGPT), serum 20 U/L bilirubin, serum, total 0.9 mg/dL sodium, serum 140 mmol/L Estimated Glomerular Filtration Rate (calc) 56 mL/min/1.73m2 glucose, plasma fasting 129 mg/dL Clinical Lists Update: IN PT LABS - Hematology platelet count 204 10*3/mm3 hemoglobin, blood 10.6 g/dL red blood cell distribution width 14.9 % hematocrit, blood 34 % mean corpuscular volume, RBC 83 fL leukocyte count, blood 9.2 10*3/mm3 erythrocyte (RBC) count 4.07 10*6/mm3 Clinical Lists Update: IN PT LABS - Urinalysis appearance, urine Clear Yello w urobilinogen, urine, semiquantitative (dipstick) normal specific gravity, urine 1.015 pH, urine, semiquantitative 6.5 nitrite, urine, semiquantitative neg ketones, urine, by test strip neg bilirubin, urine neg glucose, urine, semiquantitative neg WBC urine on microscopy 25-50 {Cells}/[HPF] RBC urine by microscopy 2-5 hyaline casts, urine none /[LPF] epithelial cells, urine 2-5 /[LPF] mucus on urinalysis neg blood in urine (hemoglobin) by dipstick neg protein, urine, semiquantitative (dipstick) neg bacteria, urine microscopy large Office Visit: Dr Parada's Check Up: Established Patient Visit - Chemistry Estimated Glomerular Filtration Rate (calc) 85 mL/min/1.73m2 hemoglobin A1C, blood, as % of total hemoglobin 5.4 % cholesterol/HDL ratio, serum, percent 3.2 anion gap, serum 11 sodium, serum 137 mmol/L triglyceride, serum, fasting 99 mg/dL bilirubin, serum, total 0.8 mg/dL alanine aminotransferase (SGPT), serum 18 U/L aspartate aminotransferase (SGOT), serum 30 U/L protein, total, serum 6.4 g/dL potassium, serum 3.8 mmol/L LDL cholesterol, serum 92 mg/dL HDL cholesterol, serum 50.0 mg/dL creatinine, serum 0.7 mg/dL carbon dioxide, venous blood 31.0 mmol/L cholesterol, serum 162 mg/dL chloride, serum 99 mmol/L calcium, serum 9.3 mg/dL urea nitrogen, blood 11 mg/dL alkaline phosphatase, serum 70 U/L albumin, serum 3.9 g/dL glucose, plasma fasting 91 mg/dL Encounters Code Encounter Date Provider Facility CPT-33279 Ofc Vst, Est Level IV 21:38:21 CDT Clare Lanny Karma Patricioner, DO, FACP CPT-32324 Ofc Vst, Est Level IV 17:14:07 CDT Clare Lanny Sparks S Karma, DO, FACP CPT-75261 Ofc Vst, Est Level IV 16:34:00 CDT Clare Lanny Sparks S Karma, DO, FACP CPT-98894 Ofc Vst, Est Level IV 15:16:43 CDT Clare Lanny Karma Parada, DO, FACP CPT-78209 Ofc Vst, Est Level V 20:39:02 CDT Clare Lanny Patricioner, DO, FACP CPT-07434 Ofc Vst, Est Level IV 21:11:18 CDT Clare Lanny Patricioner, DO, FACP CPT-20937 Ofc Vst, Est Level IV 17:49:32 [employer] Clare Parada, DO, FACP CPT-38507 Ofc Vst, Est Level IV 17:16:53 [employer] Clare Patricioner, DO, FACP CPT-52715 Ofc Vst, Est Level IV 13:56:49 [employer] Clare Parada, DO, FACP CPT-69881 Ofc Vst, Est Level IV 13:12:32 [employer] Clare Parada, DO, FACP CPT-60256 Ofc Vst, Est Level IV 16:34:49 [employer] Claredany Bartlett Parada, DO, FACP CPT-82676 Ofc Vst, Est Level IV 22:23:22 CDT Clare Lanny Sparks S Parada, DO, FACP CPT-75698 Ofc Vst, Est Level IV 19:46:05 CDT Clare Lanny Bartlett Parada, DO, FACP CPT-20012 Ofc Vst, Est Level IV 10:00:40 CDT Clare Lanny Sparks S Parada, DO, FACP CPT-44175 Ofc Vst, Est Level III 14:23:40 CDT Clare Lanny Sparks S Parada, DO, FACP CPT-55254 Ofc Vst, Est Level III 20:17:40 [employer] Clare Lanny Bartlett Karma, DO, FACP CPT-27512 Ofc Vst, Est Level IV 21:47:28 CDT Clare Lanny Bartlett Parada, DO, FACP CPT-72614 Ofc Vst, Est Level III 16:55:08 CDT Clare Lanny Sparks S Parada, DO, FACP CPT-67388 Ofc Vst, Est Level IV 07:35:49 [employer] Clare Lanny Bartlett Karma, DO, FACP CPT-92447 Ofc Vst, Est Level IV 14:10:57 CDT Clare Lanny Bartlett Parada, DO, FACP CPT-76251 Ofc Vst, Est Level IV 15:14:35 CDT Clare Lanny Sparks S Parada, DO, FACP CPT-51842 Ofc Vst, Est Level IV 14:59:17 CDT Clare Lanny Bartlett Karma, DO, FACP CPT-78445 Ofc Vst, Est Level IV 10:54:42 [employer] Clare Bartlett Parada, DO, FACP CPT-25869 Ofc Vst, Est Level IV 14:18:55 CDT Clare Parada [facility] CPT-34498 Ofc Vst, Est Level IV 13:42:09 [employer] Clare Bartlett Parada, DO, FACP CPT-42462 Ofc Vst, Est Level IV 16:26:04 [employer] Clare Bartlett Parada, DO, FACP CPT-85045 Ofc Vst, Est Level IV 15:26:55 CDT Clare Parada [facility] CPT-37751 Ofc Vst, Est Level IV 11:44:59 CDT Clare Bartlett Parada, DO, FACP CPT-27603 Ofc Vst, Est Level V 11:32:23 [employer] Clare Bartlett Karma, DO, FACP CPT-20226 Ofc Vst, Est Level IV 15:45:37 [employer] Clare Bartlett Parada, DO, FACP CPT-48948 Ofc Vst, Est Level IV 11:35:42 [employer] Clare Bartlett Parada, DO, FACP CPT-79611 Ofc Vst, Est Level IV 11:00:07 [employer] Clare Bartlett Parada, DO, FACP CPT-69114 Ofc Vst, Est Level IV 11:46:09 CDT Clare Bartlett Parada, DO, FACP CPT-03724 Ofc Vst, Est Level IV 11:40:09 CDT Clare Bartlett Parada, DO, FACP CPT-95983 Ofc Vst, Est Level V 16:26:36 CDT Claredany Bartlett Karma, DO, FACP CPT-59354 Ofc Vst, Est Level V 10:07:42 CDT Clare Lanny Bartlett Parada, DO, FACP CPT-82676 Ofc Vst, Est Level IV 09:33:23 CDT Clare Lanny Sparks S Parada, DO, FACP CPT-28682 Ofc Vst, Est Level IV 17:04:48 CDT Clare Lanny Sparks S Parada, DO, FACP CPT-12010 Ofc Vst, Est Level IV 11:00:29 [employer] Clare Lanny Suazoi S Parada, DO, FACP CPT-80992 Ofc Vst, Est Level V 11:49:16 [employer] Clare Lanny Suazoi S Parada, DO, FACP CPT-71198 Ofc Vst, Est Level IV 16:52:16 [employer] Clare Lanny Sparks S Parada, DO, FACP CPT-20694 Ofc Vst, Est Level IV 12:39:56 CDT Clare Lanny Sparks S Parada, DO, FACP CPT-63577 Ofc Vst, Est Level IV 11:22:11 CDT Clare Lanny Sparks S Parada, DO, FACP CPT-31263 Ofc Vst, Est Level III 13:30:33 CDT Clare Lanny Sparks S Karma, DO, FACP CPT-37853 Ofc Vst, Est Level V 11:20:14 CDT Clare Lanny Sparks S Parada, DO, FACP CPT-39414 Ofc Vst, Est Level IV 11:02:34 CDT Clare Lanny Suazoi S Parada, DO, FACP CPT-33299 Ofc Vst, Est Level IV 11:08:11 CDT Clare Lanny Suazoi S Krama, DO, FACP CPT-11627 Ofc Vst, Est Level IV 17:19:36 CDT Clare Lanny Bartlett Parada, DO, FACP CPT-36087 Ofc Vst, Est Level IV 14:14:27 CDT Clare Lanny Bartlett Parada, DO, FACP CPT-41967 Ofc Vst, Est Level IV 12:23:05 CDT Clare Lanny Bartlett Parada, DO, FACP CPT-50861 Ofc Vst, Est Level IV 10:30:17 CDT Clare Lanny Bartlett Parada, DO, FACP CPT-33245 Ofc Vst, Est Level III 12:03:30 [employer] Clare Lanny Bartlett Parada, DO, FACP CPT-55318 Ofc Vst, Est Level III 12:56:54 [employer] Clare Bartlett Parada, DO, FACP CPT-39953 Ofc Vst, Est Level III 13:30:54 [employer] Claredany Bartlett Parada, DO, FACP CPT-83300 Ofc Vst, Est Level III 09:53:25 [employer] Clare Lanny Sparks S Parada, DO, FACP CPT-17303 Ofc Vst, Est Level IV 10:44:38 [employer] Clare Bartlett Parada, DO, FACP CPT-51451 Ofc Vst, Est Level III 16:11:41 CDT Clare Lanny Bartlett Parada, DO, FACP CPT-93784 Ofc Vst, Est Level IV 10:04:38 CDT Clare Lanny Sparks S Parada, DO, FACP CPT-05278 Ofc Vst, Est Level IV 11:29:39 CDT Clare Lanny Sparks S Parada, DO, FACP CPT-12689 Ofc Vst, Est Level IV 11:14:18 CDT Clare Lanny Bartlett Karma, DO, FACP CPT-49301 Ofc Vst, Est Level IV 10:20:34 CDT Clare Lanny Parada, DO, FACP CPT-16038 Ofc Vst, Est Level IV 17:28:47 CDT Clare Lanny Parada, DO, FACP CPT-89139 Ofc Vst, Est Level IV 13:08:32 CDT Clare Lanny Parada, DO, FACP CPT-84223 Ofc Vst, Est Level IV 14:11:29 CDT Clare Lanny Parada, DO, FACP CPT-45201 Ofc Vst, Est Level III 14:00:41 CDT Clare Parada [facility] [place] CPT-20452 Ofc Vst, Est Level III 09:26:55 CDT Claredany Parada [facility] [place] CPT-16920 Ofc Vst, Est Level IV 09:37:11 CDT Clare Lanny Parada [facility] [place] CPT-12336 Ofc Vst, Est Level IV 13:32:42 CDT Clare Lanny Parada [facility] [place] CPT-72633 Ofc Vst, Est Level IV 14:36:57 [employer] Clare Parada [facility] [place] CPT-25917 Ofc Vst, Est Level IV 16:00:28 [employer] Clare Parada [facility] [place] CPT-33298 Ofc Vst, Est Level III 16:26:31 [employer] Clare Parada [facility] [place] CPT-09633 Ofc Vst, Est Level IV 15:52:53 [employer] Clare Parada [facility] [place] CPT-10912 Ofc Vst, Est Level IV 14:24:17 [employer] Clare Parada [facility] [place] CPT-96404 Ofc Vst, Est Level IV 14:08:28 CDT Clare Parada [facility] [place] CPT-12838 Ofc Vst, Est Level IV 13:50:30 CDT Clare Lanny Parada [facility] [place] CPT-33730 Ofc Vst, Est Level IV 09:45:13 CDT Clare Parada [facility] [place] CPT-56344 Ofc Vst, Est Level IV 13:54:41 [employer] Clare Parada [facility] [place] CPT-18756 Ofc Vst, Est Level IV 10:26:59 [employer] Clare Parada [facility] [place] CPT-59076 Ofc Vst, Est Level IV 09:40:57 [employer] Clare Parada [facility] [place] CPT-09906 Ofc Vst, Est Level IV 09:52:06 [employer] Clare Parada [facility] [place] CPT-90832 Ofc Vst, Est Level IV 11:41:40 CDT Clare Lanny Parada [facility] [place] CPT-41746 Ofc Vst, Est Level IV 12:00:01 CDT Clare Lanny Parada [facility] [place] CPT-38589 Ofc Vst, Est Level IV 11:34:53 CDT Claredany Parada [facility] [place] CPT-08876 Ofc Vst, Est Level III 13:02:30 CDT Clare Parada [facility] [place] CPT-07451 Ofc Vst, Est Level III 17:43:08 CDT Claredany Parada [facility] [place] CPT-60837 Ofc Vst, Est Level IV 18:07:21 CDT Clare Parada [facility] [place] CPT-55581 Ofc Vst, Est Level III 17:31:19 [employer] Clare Parada [facility] [place] CPT-53871 Ofc Vst, Est Level IV 17:18:03 [employer] Clare Parada [facility] [place] CPT-27127 Ofc Vst, Est Level IV 18:58:59 CDT Clare Parada [facility] [place] CPT-79477 Ofc Vst, New Level IV 13:07:57 CDT Clare Parada [facility] [place] Procedures Code Procedure Name Date Entry Date Standard Description CPT-41477 Preventive, Est, (65+) 16:07:04 CDT CPT-30223 Preventive, Est, (65+) 17:06:27 CDT CPT-38702 Injection, Pneumovax 10:03:48 [employer] CPT-75180 Administration of 1st dose vaccine 10:03:48 [employer] CPT-43911 Injection 16:10:53 [employer] CPT-J3420 Vitamin b12 injection 16:10:53 [employer]
[2016-12-14 12:38] LABS: MYOGLOBIN SERUM 281.9 NG/ML (10.0-92.0)
--- NOTE | 2016-12-14 12:43 | Diagnostic Imaging Report ---
INDICATION: Preop for peripheral angiography. Comparison with 03/25/2016. FINDINGS: There is cardiomegaly. Pulmonary vasculature is slightly prominent with mild prominence interstitial markings. There are no consolidated infiltrate. No pleural effusions. Right central line remains unchanged. IMPRESSION: Cardiomegaly with findings suggesting mild pulmonary venous congestion which has developed since previous exam. Dictated by: Dictated on workstation # [id number]
[2016-12-14 12:51] LABS: THYROID STIMULATING HORMONE 2.92 UIU/ML (0.35-4.94)
[2016-12-14 12:56] LABS: POTASSIUM 8.4 MMOL/L (3.6-5.0)
[2016-12-14 13:05] LABS: BILIRUBIN,URINE NEGATIVE (NEGATIVE); KETONES,URINE NEGATIVE (NEGATIVE); LEUKOCYTE ESTERASE ,URINE 3+ (NEGATIVE); NITRITE,URINE NEGATIVE (NEGATIVE); PH,URINE 5 (5-9); PROTEIN,URINE 2+ (NEGATIVE); UROBILINOGEN,URINE NORMAL (NORMAL)
[2016-12-14 13:11] LABS: WBC,URINE >100 /HPF
[2016-12-14] MEDS ORDERED: inSUlin (REGULAR) HUMAN 1 UNIT/0.01 ML (CHARGE PER UNIT) IV ONE (13:15)
[2016-12-14] MEDS ORDERED: CALCIUM CHLORIDE 1 GM/10 ML (IMS) SYR INJ ONE (13:15)
[2016-12-14] MEDS ORDERED: SOD POLYSTERENE 15 GM/60 ML (KAYEXALATE) UNIT DOSE PO ONE (13:15)
[2016-12-14] MEDS ORDERED: DEXTROSE 50% 50 ML (IMS) SYR IV ONE (13:15)
[2016-12-14] MEDS ORDERED: ONDANSETRON 4 MG/2 ML (SDV) Z0FRAN ONE (14:13)
== END 2016-12-14 14:17 | disposition short-term general hospital (02) ==
LOC: EDUNIT# 11:52 → ER 11:54
DX: N17.9 Acute kidney failure, unspecified (principal); I50.9 Heart failure, unspecified; E87.5 Hyperkalemia; R00.1 Bradycardia, unspecified; F41.9 Anxiety disorder, unspecified; F32.9 Major depressive disorder, single episode, unspecified; M47.9 Spondylosis, unspecified; M06.9 Rheumatoid arthritis, unspecified; K21.9 Gastro-esophageal reflux disease without esophagitis; E11.40 Type 2 diabetes mellitus with diabetic neuropathy, unspecified; J44.9 Chronic obstructive pulmonary disease, unspecified; Z87.891 Personal history of nicotine dependence; Z90.710 Acquired absence of both cervix and uterus; Z98.51 Tubal ligation status; Z90.89 Acquired absence of other organs; Z90.49 Acquired absence of other specified parts of digestive tract
CPT/HCPCS: 36415; 71010; 80053; 81000; 83735; 83874; 83880; 84439; 84443; 84484; 85025; 85610; 85730; 87088; 87186; 93005; 93041; 96374; 96375

== ENCOUNTER → 2016-12-23 | Outpatient (CLI) | payer MEDICARE, OTHER ==
[~2016-12-23] MED LIST changes: +NITR-65 PO
== END ==
LOC: WOUNDCARE 13:03
PROVIDERS: ATTEND Surgery
DX: L97.412 Non-pressure chronic ulcer of right heel and midfoot with fat layer exposed (principal); I70.234 Atherosclerosis of native arteries of right leg with ulceration of heel and midfoot; G60.9 Hereditary and idiopathic neuropathy, unspecified; I89.0 Lymphedema, not elsewhere classified; E66.01 Morbid (severe) obesity due to excess calories; Z68.42 Body mass index [BMI] 45.0-49.9, adult
CPT/HCPCS: 15275

== ENCOUNTER → 2016-12-30 | Outpatient (CLI) | payer MEDICARE, OTHER | LOC: WOUNDCARE 13:14 | PROVIDERS: ATTEND Surgery | DX: L97.412 Non-pressure chronic ulcer of right heel and midfoot with fat layer exposed (principal); I70.234 Atherosclerosis of native arteries of right leg with ulceration of heel and midfoot; G60.9 Hereditary and idiopathic neuropathy, unspecified; I89.0 Lymphedema, not elsewhere classified; E66.01 Morbid (severe) obesity due to excess calories | CPT/HCPCS: 99212 ==

== ENCOUNTER 2017-04-01 14:31 | Inpatient (IN) | payer MEDICARE, OTHER ==
[~2017-04-01] VITALS: Ht 162.6 cm; Wt 119.3 kg
[~2017-04-01 14:31] MED LIST changes: +ACHD5005 PO; -HYDR-3812 PO; -IPRA3AMP IH; +IPRA3AMP NEB
[2017-04-01 15:23] VITALS: BP 142/62
--- NOTE | 2017-04-01 15:38 | Pulmonary Consultation ---
History of Present Illness History of Present Illness Date of Consultation 04/01/17 15:38 Time Seen by Provider: 17:00 Date of Admission History of Present Illness 71yo with hx of COPD, CHF, frequent hospitalizations and morbid obesity presented as direct admit from Dr. Parada's office after failing out patient treatment for pneumonia. She has had similar previous episodes. I am consulted for pulmonary management. Allergies and Home Medications Allergies Coded Allergies: NSAIDS (Non-Steroidal Anti-Inflamma (Unverified Allergy, Mild, 03/18/09) Penicillins (Verified Allergy, Unknown, 01/03/06) Sulfa (Sulfonamide Antibiotics) (Verified Allergy, Unknown, 01/03/06) aspirin (Verified Allergy, Unknown, 01/03/06) carbamazepine (Verified Allergy, Unknown, 09/20/06) cephalexin (Verified Allergy, Unknown, 01/03/06) iodine (Verified Allergy, Unknown, 01/03/06) latex (Unverified Allergy, Unknown, 06/21/13) Home Medications Bumetanide 2 Mg Tablet, 2 MG PO DAILY, (Reported) Carvedilol 12.5 Mg Tablet, 12.5 MG PO BID, (Reported) Cetirizine HCl 10 Mg Tablet, 10 MG PO BID, (Reported) Cholecalciferol (Vitamin D3) 2,000 Unit Capsule, 2,000 UNIT PO HS, (Reported) Duloxetine HCl 60 Mg Capsule.dr, 60 MG PO DAILY, (Reported) Enalapril Maleate 5 Mg Tablet, 5 MG PO DAILY, (Reported) Esomeprazole Mag Trihydrate 40 Mg Capsule.dr, 40 MG PO HS, (Reported) Fluticasone Propionate 16 Gm [place].susp, 1 SPRAY NS DAILY, (Reported) Fluticasone/Salmeterol 1 Each Blst.w.dev, 1 PUFF IH BID, (Reported) Gabapentin 300 Mg Capsule, 300 MG PO HS, (Reported) Hydroxychloroquine Sulfate 200 Mg Tab, 200 MG PO BID, (Reported) Ipratropium/Albuterol Sulfate 3 Ml Ampul.neb, 3 ML IH Q6H PRN for SHORTNESS OF BREATH, (Reported) Metolazone 2.5 Mg Tablet, 2.5 MG PO Q72H, (Reported) Nitrofurantoin Monohyd/M-Cryst 100 Mg Capsule, 1 TAB PO BID for 5 Days, ( Reported) Oseltamivir Phosphate 75 Mg Cap, 75 MG PO BID for 5 Days, (Reported) FILLED #10 03-20-16 STARTED 03-21-16 (#3 CAPSULES LEFT IN BOX) Oxycodone HCl 20 Mg Tablet, 20 MG PO Q6H PRN for PAIN, (Reported) Potassium Chloride 10 Meq Capsule.er, 30 MEQ PO BID, (Reported) TAKES 3 (10MEQ) CAPSULES Pramipexole Di-Hcl 0.25 Mg Tablet, 0.25 MG PO DAILY, (Reported) Pramipexole Di-Hcl 0.25 Mg Tablet, 0.5 MG PO HS, (Reported) TAKES 2 (0.25MG) TABLETS Past Gkuvfuo-Soqwub-Qtblnu Hx Patient Social History Type Used: Cigarettes Former Smoker, Quit: Mar 25, 1994 2nd Hand Smoke Exposure: No Recent Foreign Travel: No Contact w/Someone Who Travel: No Recent Hopitalizations: No Immunizations Up To Date Tetanus Booster (TDap): Unknown PED Vaccines UTD: No Date of Pneumonia Vaccine: Feb 24, 2011 Seasonal Allergies Seasonal Allergies: No Surgeries History of Surgeries: Yes (MULT KNEE, BACK FUSION, NASAL SURGERY, ROTATOR CUFF REPAIR, RT BREAST L) Surgeries: Adenoidectomy, Appendectomy, Hysterectomy, Lumpectomy, Orthopedic, Tonsillectomy, Tubal Ligation Respiratory History of Respiratory Disorde: Yes Respiratory Disorders: Asthma, Sleep Apnea, COPD Currently Using CPAP: Yes Cardiovascular History of Cardiac Disorders: Yes (CHF) Cardiac Disorders: Chronic Edema/Swelling, High Cholesterol, Hypertension Neurological History of Neurological Disord: Yes Neurological Disorders: Neuropathy Reproductive System Hx Reproductive Disorders: No Sexually Transmitted Disease: No HIV/AIDS: No Female Reproductive Disorders: Denies Genitourinary History of Genitourinary Disor: Yes (chronic kidney dz) Genitourinary Disorders: Renal Failure Gastrointestinal History of Gastrointestinal Di: Yes Gastrointestinal Disorders: Gastroesophageal Reflux, Gall Bladder Disease Musculoskeletal History of Musculoskeletal Dis: Yes (KNEE SURGERIES, BACK SURGERY) Musculoskeletal Disorders: Degenerate Disk Disease, Arthritis, Rheumatoid Arthritis, Chronic Back Pain Endocrine History of Endocrine Disorders: No HEENT Loss of Vision: Bilateral Hearing Impairment: Denies Cancer History of Cancer: Yes Cancer: Breast Psychosocial History of Psychiatric Problem: Yes Behavioral Health Disorders: Anxiety, Depression Integumentary History of Skin or Integumenta: No Blood Transfusions History of Blood Disorders: Yes (IMMUNOGLOBULIN DEFICIENCY) Adverse Reaction to a Blood Tr: No Family Medical History Significant Family History: No Pertinent Family Hx Family Medial History: Cancer G8 SISTER Congestive heart failure 19 FATHER Family history: Cardiovascular disease 19 FATHER 19 MOTHER G8 BROTHER Family history: Coronary thrombosis 19 FATHER 19 MOTHER Family history: Hypertension 19 MOTHER Stroke 19 MOTHER G8 BROTHER Review of Systems Time Seen by Provider: 06:29 Constitutional: Fever, Sweats, Weakness, Malaise Eyes: No: Pain, Vision change, Conjunctivae inflammation, Eyelid inflammation, Other, Redness Respiratory: Cough, Dry, Shortness of breath, SOB with excertion, Wheezing Neurological: Weakness Exam Exam Vital Signs Date Time Temp Pulse Resp B/P (MAP) Pulse Ox O2 Delivery O2 Flow Rate FiO2 04/01/17 15:23 97.5 68 20 142/62 (88) 95 Nasal Cannula 2.00 General Appearance: No Apparent Distress, WD/WN HEENT: PERRL/EOMI, Normal ENT Inspection, Pharynx Normal Neck: Normal Inspection, Non Tender, Supple Respiratory: No Accessory Muscle Use, No Respiratory Distress, Decreased Breath Sounds Gastrointestinal: normal bowel sounds, non tender, soft, no organomegaly Extremity: Normal Capillary Refill, Normal Inspection, Normal Range of Motion Neurologic/Psychiatric: Alert, Oriented x3 Skin: Normal Color, Warm/Dry Lymphatic: No Adenopathy Assessment/Plan Assessment/Plan COPDAE -SVNs -steroids decrease to 40mg Q6 Acute on chronic respiratory failure with recurrent hospitalizations Severe VALDO with morbid obesity CHF systolic with EF of 30% HTN 254 JORGE DORADO DO Apr 01, 2017 15:38
[2017-04-01] MEDS ORDERED: methylPREDNISolone 40 MG/ML (Solu-MEDROL) VIAL IV SCH (15:45)
[2017-04-01] MEDS ORDERED: RT-ALBUTEROL/IPRATROPIUM 3 ML (DUONEB) VIAL INH PRN (15:45)
[2017-04-01] MEDS ORDERED: fentaNYL INJECTION 100 MCG/2 ML AMP IVP PRN (16:15)
[2017-04-01] MEDS ORDERED: RT-ALBUTEROL SULF 2.5 MG/3 ML PRE-MIX VIAL INH NR (16:15)
[2017-04-01] MEDS ORDERED: HYDROcodone/APAP 5 MG/325 MG (LORTAB) TAB PO PRN (16:15)
[2017-04-01] MEDS ORDERED: ACETAMINOPHEN 500 MG TAB (TYLENOL) PO PRN (16:15)
[2017-04-01] MEDS ORDERED: RT-IPRATROPIUM (ATROVENT) 0.5MG/2.5ML AMP IH NR (16:26)
--- NOTE | 2017-04-01 16:28 | Consultation-Cardiology ---
HPI-Cardiology Cardiology Consultation: Date of Consultation 04/01/17 Date of Admission Attending Physician Kourtney Dill MD Admitting Physician Clare Parada DO Consulting Physician Darcy BAI MD HPI: Time Seen by Provider: 16:00 Chief Complaint: Shortness of breath. This is a 71-year-old lady who is a patient of Dr. Carbajal. She has history of PAD with intervention but no CAD. She also has history of congestive heart failure. She presented with pneumonia which was being treated as an outpatient however there was no significant improvement therefore she was admitted for inpatient therapy. The patient denies any significant chest pain. His mild shortness of breath. No significant syncope or near syncope or palpitation. Review of Systems-Cardiology Review of Systems Constitutional: As described under HPI Eyes: No As described under HPI, No no symptoms reported, No blindness, No blurred vision, No contact lenses, No drainage, No decreased acuity, No foreign body sensation, No glasses, No inflammation, No pain, No photophobia, No previous injury, No shadows, No tunnel vision, No other, No vision change Ears/Nose/Throat: No As described under HPI, No no symptoms reported, No chronic hearing loss, No epistaxis, No ear discharge, No ear pain, No loose teeth, No mouth pain, No mouth swelling, No nasal drainage, No nose pain, No recent hearing loss, No throat pain, No throat swelling, No ulcerations, No other Respiratory: shortness of breath Cardiovascular: No no symptoms reported, No As described under HPI, No chest pain, No edema, No irregular heart rate, No lightheadedness, No palpitations, No syncope, No other Gastrointestinal: No no symptoms reported, No As described under HPI, No abdomen distended, No abdominal pain, No blood streaked bowels, No constipation , No diarrhea, No difficulty swallowing, No nausea, No poor appetite, No poor fluid intake, No rectal bleeding, No vomiting, No other, No nausea/vomiting/ diarrhea, No stool coloration changes Genitourinary: No no symptoms reported, No As described under HPI, No burning, No dysuria, No discharge, No frequency, No flank pain, No hematuria, No incontinence, No pain, No urgency, No other, No urine frequency changes, No urine coloration changes Musculoskeletal: No no symptoms reported, No As describe under HPI, No back pain, No gout, No joint pain, No joint swelling, No muscle pain, No muscle stiffness, No neck pain, No other Skin: No no symptoms reported, No As described under HPI, No change in color, No change in hair/nails, No dryness, No lesions, No lumps, No rash, No other, No skin related problems, No ulcerations, No rash on exposed areas, No ulcerations on exposed areas Psychiatric/Neurological: No no symptoms reported, No As described under HPI, No anxiety, No depression, No emotional problems, No headache, No numbness, No pre-existing deficit, No seizure, No tingling, No tremors, No weakness, No other , No focal weakness, No syncope Hematologic: No no symptoms reported, No As described under HPI, No anemia, No blood clots, No easy bleeding, No easy bruising, No swollen glands, No other, No bleeding abnormalities [id number] Hx Patient Social History Former smoker/When Quit: Feb 22, 1993 Type Used: Cigarettes 2nd Hand Smoke Exposure: No Recent Foreign Travel: No Immunizations Up To Date Tetanus Booster (TDap): Unknown Date of Pneumonia Vaccine: Feb 24, 2011 Past Medical History PMH As described under Assessment. Family Medical History Family History: Cancer G8 SISTER Congestive heart failure 19 FATHER Family history: Cardiovascular disease 19 FATHER 19 MOTHER G8 BROTHER Family history: Coronary thrombosis 19 FATHER 19 MOTHER Family history: Hypertension 19 MOTHER Stroke 19 MOTHER G8 BROTHER Allergies and Home Medications Allergies Coded Allergies: NSAIDS (Non-Steroidal Anti-Inflamma (Unverified Allergy, Mild, 03/18/09) Penicillins (Verified Allergy, Unknown, 01/03/06) Sulfa (Sulfonamide Antibiotics) (Verified Allergy, Unknown, 01/03/06) aspirin (Verified Allergy, Unknown, 01/03/06) carbamazepine (Verified Allergy, Unknown, 09/20/06) cephalexin (Verified Allergy, Unknown, 01/03/06) iodine (Verified Allergy, Unknown, 01/03/06) latex (Unverified Allergy, Unknown, 06/21/13) Home Medications Bumetanide 2 Mg Tablet, 2 MG PO DAILY, (Reported) Carvedilol 12.5 Mg Tablet, 12.5 MG PO BID, (Reported) Cetirizine HCl 10 Mg Tablet, 10 MG PO BID, (Reported) Cholecalciferol (Vitamin D3) 2,000 Unit Capsule, 2,000 UNIT PO HS, (Reported) Duloxetine HCl 60 Mg Capsule.dr, 60 MG PO DAILY, (Reported) Enalapril Maleate 5 Mg Tablet, 5 MG PO DAILY, (Reported) Esomeprazole Mag Trihydrate 40 Mg Capsule.dr, 40 MG PO HS, (Reported) Fluticasone Propionate 16 Gm [place].susp, 1 SPRAY NS DAILY, (Reported) Fluticasone/Salmeterol 1 Each Blst.w.dev, 1 PUFF IH BID, (Reported) Gabapentin 300 Mg Capsule, 300 MG PO HS, (Reported) Hydroxychloroquine Sulfate 200 Mg Tab, 200 MG PO BID, (Reported) Ipratropium/Albuterol Sulfate 3 Ml Ampul.neb, 3 ML IH Q6H PRN for SHORTNESS OF BREATH, (Reported) Metolazone 2.5 Mg Tablet, 2.5 MG PO Q72H, (Reported) Nitrofurantoin Monohyd/M-Cryst 100 Mg Capsule, 1 TAB PO BID for 5 Days, ( Reported) Oseltamivir Phosphate 75 Mg Cap, 75 MG PO BID for 5 Days, (Reported) FILLED #10 03-20-16 STARTED 03-21-16 (#3 CAPSULES LEFT IN BOX) Oxycodone HCl 20 Mg Tablet, 20 MG PO Q6H PRN for PAIN, (Reported) Potassium Chloride 10 Meq Capsule.er, 30 MEQ PO BID, (Reported) TAKES 3 (10MEQ) CAPSULES Pramipexole Di-Hcl 0.25 Mg Tablet, 0.25 MG PO DAILY, (Reported) Pramipexole Di-Hcl 0.25 Mg Tablet, 0.5 MG PO HS, (Reported) TAKES 2 (0.25MG) TABLETS Physical Exam-Cardiology Physical Exam Vital Signs/I&O Vital Sign - Last 12Hours 04/01/17 04/01/17 04/01/17 04/01/17 15:23 17:01 17:07 18:14 Temp 97.5 Pulse 68 77 Resp 20 B/P (MAP) 142/62 (88) Pulse Ox 95 95 95 O2 Delivery Nasal Cannula Nasal Cannula Nasal Cannula O2 Flow Rate 2.00 2.00 2.00 FiO2 24 Capillary Refill : Constitutional: appears stated age, AAO x 3, well-developed HEENT: PERRL, No discharge, hearing is well preserved, oral hygience is good, No ulceration, No xanthelasmas are seen Neck: No carotid bruit, carotid pulses are 2 + bilaterally Respiratory: chest is bilaterally symmetric, lungs clear to percussion, lungs clear to auscultation Cardiovascular: regular rate-rhythm, S1 and S2 Gastrointestinal: No tender, No soft, No round, No distended, No pulsatile mass , No organomegaly, No guarding, No rebound, No tenderness, No hernia, No mass, No audible bowel sounds, No abnormal bowel sounds, No abdominal bruits, No spleenomegaly, No other Rectal: deferred Extremities: No normal range of motion, No non-tender, No normal inspection, No pedal edema, No calf tenderness, No normal capillary refill, No pelvis stable , No calf tenderness, No inflammation, No pedal edema, No slow capillary refill , No swelling, No other, No abrasion, No clubbing, No cyanosis, No ecchymosis, No laceration, No no lower extremity edema bilateral, No significant edema, No tenderness, No wound Neurologic/Psychiatric: No licensed physical therapist assistant II-XII nml as tested, No no motor/sensory deficits, No alert, No normal mood/affect, No oriented x 3, No abnormal cerebellar tests, No abnormal licensed physical therapist assistant II-XII, No abnormal gait, No aphasia, No EOM palsy, No facial droop, No motor weakness, No sensory deficit, No depressed affect, No disoriented x 3, No other, No grossly intact, No power is 5/5 both on sides Skin: No normal color, No warm/dry, No cyanosis, No cool, No diaphoresis, No damp, No ecchymosis, No jaundice, No mottled, No pallor, No rash, No tattoos/ piercings, No ulcerations, No rash on exposed areas, No ulcerations on exposed areas, No other Data Review Labs Laboratory Tests 04/01/17 16:24: Lactic Acid Level 0.87 04/01/17 16:26: White Blood Count 7.1, Red Blood Count 3.53L, Hemoglobin 10.9L, Hematocrit 33L, Mean Corpuscular Volume 93, Mean Corpuscular Hemoglobin 31, Mean Corpuscular Hemoglobin Concent 33, Red Cell Distribution Width 13.5, Platelet Count 229, Mean Platelet Volume 10.1, Neutrophils (%) (Auto) 60, Lymphocytes (%) (Auto) 20 , Monocytes (%) (Auto) 14H, Eosinophils (%) (Auto) 6, Basophils (%) (Auto) 0, Neutrophils # (Auto) 4.2, Lymphocytes # (Auto) 1.4, Monocytes # (Auto) 1.0, Eosinophils # (Auto) 0.4H, Basophils # (Auto) 0.0, Sodium Level 140, Potassium Level 3.6, Chloride Level 98, Carbon Dioxide Level 34H, Anion Gap 8, Blood Urea Nitrogen 26H, Creatinine 1.15, Estimat Glomerular Filtration Rate 47, BUN/ Creatinine Ratio 23, Glucose Level 85, Calcium Level 9.8, Phosphorus Level 3.0, Magnesium Level 1.4L, Total Bilirubin 0.6, Aspartate Amino Transf (AST/SGOT) 19 , Alanine Aminotransferase (ALT/SGPT) 9, Alkaline Phosphatase 63, Troponin I < 0.30, B-Type Natriuretic Peptide 31.6, Total Protein 6.7, Albumin 3.6 04/01/17 16:54: Blood Gas Puncture Site LEFT RADIAL, Blood Gas Patient Temperature 97.9, Arterial Blood pH 7.43, Arterial Blood Partial Pressure CO2 52H, Arterial Blood Partial Pressure O2 63L, Arterial Blood HCO3 34H, Arterial Blood Total CO2 35.1H , Arterial Blood Oxygen Saturation 95, Arterial Blood Base Excess 8.8H, Izaiah Test POSITIVE, Blood Gas Ventilator Setting NO, Blood Gas Inspired Oxygen 2L Microbiology 04/01/17 Influenza Types A,B Antigen (NURIA) - Final, Complete ECG Impression ECG Initial ECG Rhythm: Normal Sinus A/P-Cardiology Assessment/Admission Diagnosis Pneumonia, Hypertension History of congestive heart failure, PAD Plan Deferred treatment of pneumonia to the primary team. Hypertension: Restart carvedilol and enalapril. History of CHF: Not in congestive heart failure. Normal BNP, echocardiogram 2015 shows normal LV function. PAD: Continue outpatient therapy. Thank you for your consultation. Please call me if you have any questions. Ariel Bai MD, FACP, FACC, FSCAI, FHRS, CCDS Interventional Cardiology Cardiac Electrophysiology Vascular Medicine and Endovascular Interventions Darcy BAI MD Apr 01, 2017 16:28
[2017-04-01 16:37] LABS: BASOPHILS % (AUTO) 0 % (0-10); EOSINOPHILS # (AUTO) 0.4 10^3/uL (0.0-0.3); EOSINOPHILS % (AUTO) 6 % (0-10); HEMATOCRIT 33 % (35-52); HEMOGLOBIN 10.9 G/DL (11.5-16.0); LYMPHOCYTES # (AUTO) 1.4 X 10^3 (1.0-4.0); LYMPHOCYTES % (AUTO) 20 % (12-44); MEAN CORPUSCULAR HEMOGLOBIN 31 PG (25-34); MEAN CORPUSCULAR HGB CONC 33 G/DL (32-36); MEAN CORPUSCULAR VOLUME 93 FL (80-99); MEAN PLATELET VOLUME 10.1 FL (7.4-10.4); MONOCYTES % (AUTO) 14 % (0-12); NEUTROPHILS # (AUTO) 4.2 X 10^3 (1.8-7.8); NEUTROPHILS % (AUTO) 60 % (42-75); PLATELET COUNT 229 10^3/uL (130-400); RED BLOOD COUNT 3.53 10^6/uL (4.35-5.85); RED CELL DISTRIBUTION WIDTH 13.5 % (10.0-14.5); WHITE BLOOD COUNT 7.1 10^3/uL (4.3-11.0)
[2017-04-01] MEDS: LEVOFLOXACIN 750 MG/150 ML IV 150 ML IV SCH (16:43)
[2017-04-01] MEDS: ENOXAPARIN 40 MG/0.4 ML (LOVENOX) SYR SC SCH (16:44)
[2017-04-01] MEDS: methylPREDNISolone 125 MG (Solu-MEDROL) VIAL IVP SCH ×2 (16:46→23:45)
[2017-04-01 16:57] LABS: ALANINE AMINOTRANSFERASE 9 U/L (0-55); ALBUMIN 3.6 GM/DL (3.2-4.5); ALKALINE PHOSPHATASE 63 U/L (40-136); BILIRUBIN,TOTAL 0.6 MG/DL (0.1-1.0); BUN/CREATININE RATIO 23; CALCIUM 9.8 MG/DL (8.5-10.1); CARBON DIOXIDE 34 MMOL/L (21-32); CHLORIDE 98 MMOL/L (98-107); CREATININE SERUM 1.15 MG/DL (0.60-1.30); GFR ESTIMATED 47; GLUCOSE 85 MG/DL (70-105); MAGNESIUM 1.4 MG/DL (1.8-2.4); POTASSIUM 3.6 MMOL/L (3.6-5.0); SODIUM 140 MMOL/L (135-145); TOTAL PROTEIN 6.7 GM/DL (6.4-8.2)
[2017-04-01 17:01] VITALS: BP 142/62
[2017-04-01 17:26] LABS: ABG BASE EXCESS 8.8 MMOL/L (-2.5-2.5); ABG OXYGEN SATURATION 95 % (94-100); ABG PCO2 52 MMHG (35-45); ABG PH 7.43 (7.37-7.43); ABG PO2 63 MMHG (79-93); ABG TCO2 35.1 MMOL/L (21.0-31.0)
[2017-04-01 17:27] LABS: ALLENS TEST POSITIVE; INSPIRED O2 2L; PATIENT TEMP 97.9; VENTILATOR NO
--- NOTE | 2017-04-01 17:28 | Diagnostic Imaging Report ---
INDICATION: Shortness of breath. PA and lateral chest. FINDINGS: Heart size and pulmonary vascularity are normal. Lungs are clear. There are no effusions or pneumothoraces. Right IJ Port-A-Cath tip projects over the SVC. IMPRESSION: No acute abnormalities in the chest. Dictated by: Dictated on workstation # [id number]
[2017-04-01] MEDS: RT-BUDESONIDE NEBS 0.5 MG/2ML (PULMICORT) AMP INH SCH (19:33)
[2017-04-01] MEDS: RT-ALBUTEROL/IPRATROPIUM 3 ML (DUONEB) VIAL INH SCH ×2 (19:33→22:25)
[2017-04-01 19:36] VITALS: BP 133/58
[2017-04-01 19:53] VITALS: BP 138/78
[2017-04-01] MEDS: inSUlin ASPART (NovoLOG) 1 UNIT/0.01 ML (CHARGE PER UNIT) SC SCH (20:46)
[2017-04-01] MEDS: PANTOPRAZOLE 40 MG (PROTONIX) TAB PO SCH (21:01)
[2017-04-01] MEDS: CARVEDILOL 12.5 MG (COREG) TABLET PO SCH (21:01)
[2017-04-01] MEDS: HYDROXYCHLOROQUINE 200 MG (PLAQUENIL) TAB PO SCH (21:01)
[2017-04-01] MEDS: GABAPENTIN 300 MG (NEURONTIN) CAP PO SCH (21:01)
[2017-04-01] MEDS: oxyCODONE/APAP 10/325MG (PERCOCET 10) TABLET PO PRN (21:36)
[2017-04-02 00:42] VITALS: BP 156/67
[2017-04-02 04:14] VITALS: BP 157/67
[2017-04-02] MEDS: oxyCODONE/APAP 10/325MG (PERCOCET 10) TABLET PO PRN ×3 (04:54→20:03)
[2017-04-02 05:17] LABS: BASOPHILS % (AUTO) 0 % (0-10); EOSINOPHILS % (AUTO) 0 % (0-10); HEMATOCRIT 33 % (35-52); HEMOGLOBIN 11.1 G/DL (11.5-16.0); LYMPHOCYTES # (AUTO) 0.7 X 10^3 (1.0-4.0); LYMPHOCYTES % (AUTO) 16 % (12-44); MEAN CORPUSCULAR HEMOGLOBIN 31 PG (25-34); MEAN CORPUSCULAR HGB CONC 34 G/DL (32-36); MEAN CORPUSCULAR VOLUME 91 FL (80-99); MEAN PLATELET VOLUME 10.2 FL (7.4-10.4); MONOCYTES % (AUTO) 1 % (0-12); NEUTROPHILS # (AUTO) 3.7 X 10^3 (1.8-7.8); NEUTROPHILS % (AUTO) 83 % (42-75); PLATELET COUNT 249 10^3/uL (130-400); RED BLOOD COUNT 3.61 10^6/uL (4.35-5.85); WHITE BLOOD COUNT 4.5 10^3/uL (4.3-11.0)
[2017-04-02] MEDS: RT-ALBUTEROL/IPRATROPIUM 3 ML (DUONEB) VIAL INH SCH ×6 (05:38→22:45)
[2017-04-02 05:39] LABS: ALBUMIN 3.4 GM/DL (3.2-4.5); BILIRUBIN,TOTAL 0.6 MG/DL (0.1-1.0); CALCIUM 9.4 MG/DL (8.5-10.1); CREATININE SERUM 1.36 MG/DL (0.60-1.30); MAGNESIUM 1.4 MG/DL (1.8-2.4); POTASSIUM 3.6 MMOL/L (3.6-5.0); TOTAL PROTEIN 6.8 GM/DL (6.4-8.2)
[2017-04-02] MEDS: inSUlin ASPART (NovoLOG) 1 UNIT/0.01 ML (CHARGE PER UNIT) SC SCH ×4 (06:59→20:54)
[2017-04-02] MEDS: NS IV 1000 ML 1,000 ML IV SCH (06:59)
--- NOTE | 2017-04-02 07:20 | Pulmonary Progress Note ---
Subjective Time Seen by Provider: 07:19 Subjective/Events-last exam No complications noted. Exam Exam Vital Signs Date Time Temp Pulse Resp B/P (MAP) Pulse Ox O2 Delivery O2 Flow Rate FiO2 04/02/17 04:14 98.4 78 18 157/67 (97) 94 Nasal Cannula 2.00 04/02/17 00:42 97.8 76 16 156/67 (96) 92 Nasal Cannula 2.00 04/01/17 22:25 91 Nasal Cannula 3.00 04/01/17 21:00 Nasal Cannula 2.00 04/01/17 19:53 98.4 68 18 138/78 (98) 95 Nasal Cannula 2.00 04/01/17 19:40 91 Nasal Cannula 3.00 04/01/17 19:36 97.5 84 18 133/58 (83) 95 Nasal Cannula 2.00 04/01/17 19:34 90 Nasal Cannula 2.00 04/01/17 19:00 85 04/01/17 18:14 Nasal Cannula 2.00 04/01/17 17:07 95 Nasal Cannula 2.00 04/01/17 17:01 77 95 24 04/01/17 15:23 97.5 68 20 142/62 (88) 95 Nasal Cannula 2.00 I & O 04/02/17 07:00 Intake Total 622 ml Output Total 1300 ml Balance -678 ml General Appearance: No Apparent Distress, WD/WN HEENT: PERRL/EOMI, Normal ENT Inspection, Pharynx Normal Neck: Normal Inspection, Non Tender, Supple Respiratory: No Accessory Muscle Use, No Respiratory Distress, Decreased Breath Sounds Gastrointestinal: normal bowel sounds, non tender, soft, no organomegaly Extremity: Normal Capillary Refill, Normal Inspection, Normal Range of Motion Neurologic/Psychiatric: Alert, Oriented x3 Skin: Normal Color, Warm/Dry Lymphatic: No Adenopathy Results Lab Laboratory Tests 04/01/17 16:26 04/02/17 05:00 Assessment/Plan Assessment/Plan COPDAE -SVNs -steroids decrease to 40mg Q6 Acute on chronic respiratory failure with recurrent hospitalizations Severe VALDO with morbid obesity CHF systolic with EF of 30% ARF -start NS at 50cc/hr HTN 232 Clinical Quality Measures DVT/VTE Risk/Contraindication: Risk Factor Score Per Nursin RFS Level Per Nursing on Admit: 4+=Very High JORGE DORADO DO Apr 02, 2017 07:20
[2017-04-02] MEDS: RT-BUDESONIDE NEBS 0.5 MG/2ML (PULMICORT) AMP INH SCH ×2 (07:29→18:59)
[2017-04-02 08:00] VITALS: BP 111/51
[2017-04-02] MEDS: LORATADINE (CLARITIN) 10 MG TAB PO SCH (09:00)
[2017-04-02] MEDS: CARVEDILOL 12.5 MG (COREG) TABLET PO SCH ×2 (09:00→20:53)
[2017-04-02] MEDS ORDERED: METOLAZONE 2.5 MG (ZAROXOLYN) TAB PO SCH (09:00)
[2017-04-02] MEDS: DULoxetine 30 MG (CYMBALTA) CAP PO SCH (09:01)
[2017-04-02] MEDS: HYDROXYCHLOROQUINE 200 MG (PLAQUENIL) TAB PO SCH ×2 (09:01→20:53)
[2017-04-02] MEDS: methylPREDNISolone 40 MG/ML (Solu-MEDROL) VIAL IV SCH ×2 (09:04→17:42)
[2017-04-02] MEDS: LEVOFLOXACIN 750 MG/150 ML IV 150 ML IV SCH (09:04)
--- NOTE | 2017-04-02 09:06 | History & Physical-Hospitalist ---
HPI History of Present Illness: HPI/Chief Complaint Pt is a 71yoCF who presented as a direct admission for presumed pneumonia from her PCP's office. She reports she has been feeling poorly for the last 3 weeks with cough. She was treated as an outpatient with doxycycline but continued to worsen. She was seen by her PCP yesterday with worsening dyspnea, wheezing and decision was made to direct admit for IV antibiotics for failure of outpatient treatment. She denies any fever or sputum but complains of a dry cough which has been improving today. She lives in an assisted living facility and has been around multiple sick contacts. She normally wears 2lpm of oxygen but was needed 3lpm yesterday to keep her sats up. Source: patient, RN/MD Exam Limitations: no limitations Date Seen 04/02/17 Time Seen by Provider: 08:30 Attending Physician Dawit Dill MD PCP Clare Parada DO Referring Physician Date of Admission Apr 01, 2017 at 2:55 pm Home Medications & Allergies Home Medications Reviewed patient Home Medication Reconciliation Form Allergies Allergies Coded Allergies NSAIDS (Non-Steroidal Anti-Inflamma (Unverified Allergy, Mild, 03/18/09) Penicillins (Verified Allergy, Unknown, 01/03/06) Sulfa (Sulfonamide Antibiotics) (Verified Allergy, Unknown, 01/03/06) aspirin (Verified Allergy, Unknown, 01/03/06) carbamazepine (Verified Allergy, Unknown, 09/20/06) cephalexin (Verified Allergy, Unknown, 01/03/06) iodine (Verified Allergy, Unknown, 01/03/06) latex (Unverified Allergy, Unknown, 06/21/13) Past Mjfecqs-[id number]-Jprbhu Hx Patient Social History Employed/Student: unemployed Alcohol Use: Denies Use Recreational Drug Use: No Smoking Status: Former Smoker Former Smoker, Quit: Mar 25, 1994 Type Used: Cigarettes 2nd Hand Smoke Exposure: No Physical Abuse Screen: No Sexual Abuse: No Recent Foreign Travel: No Contact w/other who traveled: No Recent Hopitalizations: No Recent Infectious Disease Expo: No Immunizations Up To Date Tetanus Booster (TDap): Unknown Pediatric: No Date of Pneumonia Vaccine: Feb 24, 2011 Seasonal Allergies Seasonal Allergies: No Surgeries Yes (MULT KNEE, BACK FUSION, NASAL SURGERY, ROTATOR CUFF REPAIR, RT BREAST L) Adenoidectomy, Appendectomy, Hysterectomy, Lumpectomy, Orthopedic, Tonsillectomy , Tubal Ligation Respiratory Yes COPD, Pneumonia, Sleep Apnea Currently Using CPAP: Yes Cardiovascular Yes (CHF) Chronic Edema/Swelling, High Cholesterol, Hypertension Neurological Yes Neuropathy Reproductive System Hx Reproductive Disorders: No Sexually Transmitted Disease: No HIV/AIDS: No Female Reproductive Disorders: Denies Genitourinary Yes (chronic kidney dz) Renal Failure Gastrointestinal Yes Gastroesophageal Reflux, Gall Bladder Disease Musculoskeletal Yes (KNEE SURGERIES, BACK SURGERY) Degenerate Disk Disease, Arthritis, Rheumatoid Arthritis, Chronic Back Pain Endocrine History of Endocrine Disorders: No HEENT Loss of Vision: Bilateral Hearing Impairment: Denies Cancer Yes Breast Psychosocial History of Psychiatric Problem: Yes Behavioral Health Disorders: Anxiety, Depression Integumentary History of Skin or Integumenta: No Blood Transfusions History of Blood Disorders: Yes (IMMUNOGLOBULIN DEFICIENCY) Adverse Reaction to a Blood Tr: No Family Medical History Significant Family History: No Pertinent Family Hx Family Hx: Cancer G8 SISTER Congestive heart failure 19 FATHER Family history: Cardiovascular disease 19 FATHER 19 MOTHER G8 BROTHER Family history: Coronary thrombosis 19 FATHER 19 MOTHER Family history: Hypertension 19 MOTHER Stroke 19 MOTHER G8 BROTHER Review of Systems Constitutional: No chills, No fever EENTM: No blurred vision, No double vision, No nose congestion, No throat pain Respiratory: cough, dyspnea on exertion, No hemoptysis, No phlegm, wheezing Cardiovascular: No chest pain, No edema, No palpitations Gastrointestinal: No abdominal pain, No constipation, No diarrhea, No nausea, No vomiting Genitourinary: No dysuria, No frequency Musculoskeletal: No joint pain, No muscle pain Skin: No lesions, No rash Psychiatric/Neurological: Denies Headache, Denies Numbness, Denies Tingling Physical Exam Physical Exam Vital Signs Vital Signs - First Documented 04/01/17 04/01/17 15:23 17:01 Temp 97.5 Pulse 68 Resp 20 B/P (MAP) 142/62 (88) Pulse Ox 95 O2 Delivery Nasal Cannula O2 Flow Rate 2.00 FiO2 24 Capillary Refill : General Appearance: No Apparent Distress, Chronically ill HEENT: PERRL/EOMI, Moist Mucous Membranes Neck: Non Tender, Supple Respiratory: No Respiratory Distress, Crackles (left base), Rhonci, Wheezing Cardiovascular: Regular Rate, Rhythm, No Murmur Gastrointestinal: Normal Bowel Sounds, Non Tender, Soft Extremity: Normal Capillary Refill, No Calf Tenderness Neurologic/Psychiatric: Alert, Oriented x3, Normal Mood/Affect Skin: Normal Color, Warm/Dry Results Results/Procedures Lab Laboratory Tests 04/01/17 16:26 04/02/17 05:00 Radiology Date of Exam: 04/01/17 CHEST PA/LAT (2 VIEW) INDICATION: Shortness of breath. PA and lateral chest. FINDINGS: Heart size and pulmonary vascularity are normal. Lungs are clear. There are no effusions or pneumothoraces. Right IJ Port-A-Cath tip projects over the SVC. IMPRESSION: No acute abnormalities in the chest. Assessment/Plan Admission Diagnosis CAP and COPD Exacerbation Diagnosis/Problems Diagnosis/Problems (1) COPD exacerbation Status: Acute Assessment & Plan: Pulm consulted, appreciate recs Continue IV Steroids Continue Levaquin Continues to wheeze MAT Protocol (2) CAP (community acquired pneumonia) Status: Acute Assessment & Plan: CXR clear but crackles clinically on exam and high risk given COPD history Will continue Levaquin Does not meet sepsis criteria Qualifiers: Qualified Codes: J18.1 - Lobar pneumonia, unspecified organism (3) LEIGHANN (acute kidney injury) Assessment & Plan: Mild DC diuretics and start IVF (4) Essential (primary) hypertension Assessment & Plan: Continue Coreg Hold Enalapril as no longer on MAR from [place] (5) Non-insulin dependent type 2 diabetes mellitus Assessment & Plan: SSI (6) Prophylactic measure Assessment & Plan: Lovenox NS at 50ml/hr HH Diet Clinical Quality Measures DVT/VTE Risk/Contraindication: Risk Factor Score Per Nursin RFS Level Per Nursing on Admit: 4+=Very High ADWIT DILL MD Apr 02, 2017 9:06 am
[2017-04-02] MEDS ORDERED: OXYC20TA3 PO (10:24)
[2017-04-02] MEDS ORDERED: AD60O TP (10:24)
[2017-04-02] MEDS ORDERED: DULO60CA58 PO (10:24)
[2017-04-02] MEDS ORDERED: CLOP75TA69 PO (10:24)
[2017-04-02] MEDS ORDERED: BUME2TAB3 PO (10:24)
[2017-04-02] MEDS ORDERED: CARV12.53 PO (10:24)
[2017-04-02] MEDS ORDERED: [UNRECOGNIZED DRUG - CODE] TP (10:24)
[2017-04-02] MEDS ORDERED: METO5TAB6 PO (10:24)
[2017-04-02] MEDS ORDERED: GUAI473L29 PO (10:24)
[2017-04-02] MEDS ORDERED: HYDR200T46 PO (10:24)
[2017-04-02] MEDS ORDERED: NF-ESOM40C PO (10:24)
[2017-04-02] MEDS ORDERED: TETR15DR74 OP (10:24)
[2017-04-02] MEDS ORDERED: CETI-214 PO (10:24)
[2017-04-02] MEDS ORDERED: SIMV20TA3 PO (10:24)
[2017-04-02] MEDS ORDERED: ENAL5TAB PO (10:24)
[2017-04-02] MEDS ORDERED: GABA-488 PO (10:24)
[2017-04-02] MEDS ORDERED: MENT71OI TP (10:24)
[2017-04-02] MEDS ORDERED: GUAI5SYR PO (10:34)
--- NOTE | 2017-04-02 11:04 | Cardiology Progress Note ---
Cardiology SOAP Progress Note Subjective: Mild improvement in shortness of breath. Objective: I&O/Vital Signs Vital Sign - Last 12Hours 04/02/17 04/02/17 04/02/17 04/02/17 10:40 12:00 14:53 15:38 Temp 97.1 98.6 Pulse 90 80 Resp 18 17 B/P (MAP) 126/57 (80) 154/65 (94) Pulse Ox 92 95 94 97 O2 Delivery Nasal Cannula Nasal Cannula Nasal Cannula Nasal Cannula O2 Flow Rate 3.00 2.00 4.00 2.00 04/02/17 04/02/17 04/02/17 04/02/17 18:59 18:59 19:09 19:20 Temp 98.0 Pulse 85 76 Resp 17 B/P (MAP) 186/86 (119) Pulse Ox 94 95 95 O2 Delivery Nasal Cannula Nasal Cannula Nasal Cannula O2 Flow Rate 4.00 4.00 2.00 Intake and Output 04/02/17 00:00 Intake Total 522 ml Output Total 1100 ml Balance -578 ml Weight (Pounds): 263 Weight (Ounces): 0.0 Weight (Calculated Kilograms): [id number] Constitutional: appears stated age, AAO x 3, well-developed Respiratory: chest is bilaterally symmetric, lungs clear to percussion, lungs clear to auscultation Cardiovascular: regular rate-rhythm, S1 and S2 Gastrointestional: No tender, No soft, No round, No distended, No pulsatile mass, No organomegaly, No guarding, No rebound, No tenderness, No hernia, No mass, No audible bowel sounds, No abnormal bowel sounds, No abdominal bruits, No spleenomegaly, No other Extremities: No normal range of motion, No non-tender, No normal inspection, No pedal edema, No calf tenderness, No normal capillary refill, No pelvis stable , No calf tenderness, No inflammation, No pedal edema, No slow capillary refill , No swelling, No other, No abrasion, No clubbing, No cyanosis, No ecchymosis, No laceration, No no lower extremity edema bilateral, No significant edema, No tenderness, No wound Neurologic/Psychiatric: No electro winning operator II-XII nml as tested, No no motor/sensory deficits, No alert, No normal mood/affect, No oriented x 3, No abnormal cerebellar tests, No abnormal electro winning operator II-XII, No abnormal gait, No aphasia, No EOM palsy, No facial droop, No motor weakness, No sensory deficit, No depressed affect, No disoriented x 3, No other, No grossly intact, No power is 5/5 both on sides Skin: No normal color, No warm/dry, No cyanosis, No cool, No diaphoresis, No damp, No ecchymosis, No jaundice, No mottled, No pallor, No rash, No tattoos/ piercings, No ulcerations, No rash on exposed areas, No ulcerations on exposed areas, No other Results/Procedures: Labs Laboratory Tests 04/02/17 05:00: White Blood Count 4.5, Red Blood Count 3.61L, Hemoglobin 11.1L, Hematocrit 33L, Mean Corpuscular Volume 91, Mean Corpuscular Hemoglobin 31, Mean Corpuscular Hemoglobin Concent 34, Red Cell Distribution Width 13.0, Platelet Count 249, Mean Platelet Volume 10.2, Neutrophils (%) (Auto) 83H, Lymphocytes (%) (Auto) 16 , Monocytes (%) (Auto) 1, Eosinophils (%) (Auto) 0, Basophils (%) (Auto) 0, Neutrophils # (Auto) 3.7, Lymphocytes # (Auto) 0.7L, Monocytes # (Auto) 0.0, Eosinophils # (Auto) 0.0, Basophils # (Auto) 0.0, Sodium Level 141, Potassium Level 3.6, Chloride Level 97L, Carbon Dioxide Level 28, Anion Gap 16H, Blood Urea Nitrogen 30H, Creatinine 1.36H, Estimat Glomerular Filtration Rate 38, BUN/ Creatinine Ratio 22, Glucose Level 147H, Calcium Level 9.4, Magnesium Level 1.4L , Total Bilirubin 0.6, Aspartate Amino Transf (AST/SGOT) 19, Alanine Aminotransferase (ALT/SGPT) 8, Alkaline Phosphatase 70, Total Protein 6.8, Albumin 3.4 04/02/17 06:00: Glucometer 158H 04/02/17 10:58: Glucometer 159H 04/02/17 15:40: Glucometer 115H 04/02/17 15:50: Phosphorus Level 2.6 04/02/17 20:48: Glucometer 158H Microbiology 04/01/17 Blood Culture - Preliminary, Resulted No growth 04/01/17 Influenza Types A,B Antigen (NURIA) - Final, Complete A/P: Assessment/Dx: Pneumonia, Hypertension History of congestive heart failure, PAD Plan: Deferred treatment of pneumonia to the primary team. Hypertension: carvedilol and enalapril. History of CHF: Not in congestive heart failure. Normal BNP, echocardiogram 2015 shows normal LV function. PAD: Continue outpatient therapy. Thank you for your consultation. Please call me if you have any questions. Ariel Bai MD, FACP, FACC, FSCAI, FHRS, CCDS Interventional Cardiology Cardiac Electrophysiology Vascular Medicine and Endovascular Interventions Darcy BAI MD Apr 02, 2017 11:04 am
[2017-04-02 12:00] VITALS: BP 126/57
--- NOTE | 2017-04-02 13:50 | Physical Therapy Evaluation ---
PT Evaluation-General Medical Diagnosis Admission Date Apr 01, 2017 at 14:55 Medical Diagnosis: Pneumonia Onset Date: Apr 01, 2017 Therapy Diagnosis Therapy Diagnosis: debility Height/Weight Height (Feet): 5 Height (Inches): 4.00 Weight (Pounds): 263 Weight (Ounces): 0.0 Precautions Precautions/Isolations: Contact Isolation Weight Bear Status Right Lower Extremity: Right Weight Bearing/Tolerated Left Lower Extremity: Left Weight Bearing/Tolerated Referral Physician: Fuentes Reason for Referral: Evaluation/Treatment Medical History Pertinent Medical History: Arthritis, CAD, COPD, GERD, HTN, Neuropathy, Rheumatoid Arthritis Additional Medical History morbid obesity Current History direct admit secondary to failed outpatient antibiotics for pneumonia Reviewed History: Yes Social History Home: Assisted Living Prior/Core FIM Prior Level of Function Functional [place] Measure 0=Not Assessed/NA 4=Minimal Assistance 1=Total Assistance 5=Supervision or Setup 2=Maximal Assistance 6=Modified [place] 3=Moderate Assistance 7=Complete [place] Bed Mobility: 6 Transfers (B,C,W/C) (FIM): 6 Gait: 6 patient utilized w/c for main transport vs. FWW PT Evaluation-Current Subjective Patient agrees to PT. No c/o. Pain Numeric Pain Scale: 0-No Pain Location: No Pain Reported Objective Patient Orientation: Normal For Age Attachments: Oxygen (3-4L), IV ROM/Strength ROM Lower Extremities bilateral Le WNL Strength Lower Extremities bilateral LE 4/5 grossly all planes Integumentary/Posture Integumentary refer to nursing notes Bowel Incontinence: No Bladder Incontinence: No Posture trunk flexed posture due to inactivity and sedentary life style with majority of time in a chair Neuromuscular (Tone, Coordination, Reflexes) grossly intact coordination Sensory Vision: Wears Glasses Hearing: Functional Sensation Right Lower Extremit: Impaired Sensation Left Lower Extremity: Impaired Transfers Functional [place] Measure 0=Not Assessed/NA 4=Minimal Assistance 1=Total Assistance 5=Supervision or Setup 2=Maximal Assistance 6=Modified [place] 3=Moderate Assistance 7=Complete [place] Transfers (B, C, W/C) (FIM): 5 Scootin Sit to/from Stand: 5 Gait Mode of Locomotion: Both Anticipated Mode of Locomotion: Both Gait (FIM): 5 Distance (FIM): 3=150 ft Distance: 150' Gait Level of Assist: 5 Gait Assistive Device: FWW Comments/Gait Description trunk flexed posture in stand/functional gait sequence Balance Sitting Static: Normal Sitting Dynamic: Normal Standing Static: Normal Standing Dynamic: Normal Assessment/Needs 71 y.o. female, will benefit from short term skilled PT to address pulmonary functional with functional mobility. Patient [place] to return to [place]. Rehab Potential: Good PT Long-Term Goals Long-Term Goals PT Long-Term Goals Time Frame: Apr 09, 2017 Transfers (B,C,W/C) (FIM): 6 Gait (FIM): 6 Gait distance (FIM): 3=150 ft Distance: 200' Gait Level of Assist: 6 Gait Assistive Device: FWW PT Plan Problem List Problem List: Activity Tolerance Treatment/Plan Treatment Plan: Continue Plan of Care Treatment Plan: Bed Mobility, Education, Functional Activity [place], Functional Strength, Gait, Safety, Therapeutic Exercise, Transfers Treatment Duration: Apr 09, 2017 Frequency: 6 times per week Estimated Hrs Per Day: .25 hour per day Patient and/or Family Agrees t: Yes Discharge Recommendations Therapy D/C Recommendations: Assisted Living Time/GCodes Time In: 1325 Time Out: 1343 Total Billed Treatment Time: 18 Total Billed Treatment 1 visit EVMod 18 min GARO NICK PT Apr 02, 2017 13:50
--- NOTE | 2017-04-02 14:23 | Occupational Therapy Eval ---
OT Evaluation-General/PLF Medical Diagnosis Admission Date Apr 01, 2017 at 14:55 Medical Diagnosis: Pneumonia Onset Date: Apr 01, 2017 Therapy Diagnosis Therapy Diagnosis: decreased self care skills Height/Weight Height (Feet): 5 Height (Inches): 4.00 Weight (Pounds): 263 Weight (Ounces): 0.0 Precautions Precautions/Isolations: Contact Isolation Safety Interventions: Reorient-PRN Referral Physician: Fuentes Medical History Pertinent Medical History: Arthritis, CAD, COPD, GERD, HTN, Neuropathy, Rheumatoid Arthritis Additional Medical History CHF, obesity, back fusion, right rotator cuff repair, asthma, sleep apnea, chronic edema, high cholesterol, chronic kidney disease, DDD, chronic back pain , anxiety, depression Reviewed History: Yes Social History Home: Assisted Living ADL-Prior Level of Function ADL PLOF Comments Pt reports receiving assistance with bathing, donning shoes/socks, cleaning, and laundry. Is able to complete other ADLs without assist. Uses 4WW for short distances inside her apartment, but uses w/c for remainder of mobility. DME/Equipment: Bath Chair, Grab Bars, Shower, Tall Toilet OT Current Status Subjective Pt sitting in chair, agrees to therapy. Pt reports 7/10 pain in back and legs. RN notified and provided pain medication. Mental Status/Objective Patient Orientation: Person, Place, Situation Attachments: IV, Oxygen Current Glasses/Contacts: Yes Hearing Aids: No Hand Dominance: Right Upper Extremity ROM Decreased right shoulder ROM. Pt states she's had two rotator cuff repairs on right. Left UE grossly WFL Upper Extremity Coordination Fair Upper Extremity Sensation Pt reports occasional numbness in hands. Upper Extremity Strength Decreased right shoulder Left UE grossly 4/5 ADL-Treatment ADL-Current Pt reports feeding herself lunch without assistance. Pt unable to doff/don socks without assist at this time. Pt performed sit to stand with supervision. Pt demonstrates ability to perform transfers with supervision using FWW. Pt sitting in chair with needs met after session. Functional [place] Measure 0=Not Assessed/NA 4=Minimal Assistance 1=Total Assistance 5=Supervision or Setup 2=Maximal Assistance 6=Modified [place] 3=Moderate Assistance 7=Complete IndependenceIRFPAI Quality Coding Scale 6 Independent with activity with or without an assistive device 5 Patient requires set up or clean up by helper. Patient completes activity by themselves 4 Supervision or touching assist (CGA). [place] provide cues , steadying assist 3 The helper provides less than half the effort to complete the activity 2 The helper provides more than half the effort to complete the activity 1 Dependent. The helper does all the effort to complete an activity 7 Patient refused to complete or attempt activity 9 The patient did not perform the activity before the current illness or injury 88 Not attempted due to Medical conditions or safety concerns Eating (FIM): 6 Lower Body Dressing (FIM): 2 (socks only) Transfers (B, C, W/C) (FIM): 5 Education OT Patient Education: Rehab process Teaching Recipient: Patient Teaching Methods: Discussion Response to Teaching: Verbalize Understanding OT Short Term Goals Short Term Goals 1=Demonstrate adherence to instructed precautions during ADL tasks. 2=Patient will verbalize/demonstrate understanding of assistive devices/ modifications for ADL. 3=Patient will improve strength/tolerance for activity to enable patient to perform ADL's. OT [place]el [place] Goals [place]el [place] Goals Time Frame: Apr 09, 2017 Grooming(FIM): 6 Bathing(FIM): 4 Upper Body Dressing(FIM): 5 Lower Body Dressing(FIM): 4 Toileting(FIM): 6 Toilet/Commode Transfer(FIM): 6 Additional Goals: 2-Verbalize Understanding, 3-ImproveStrength/[place] 1=Demonstrate adherence to instructed precautions during ADL tasks. 2=Patient will verbalize/demonstrate understanding of assistive devices/ modifications for ADL. 3=Patient will improve strength/tolerance for activity to enable patient to perform ADL's. OT Education/Plan Problem List/Assessment Assessment: Decreased Activ Tolerance, Decreased UE Strength, Dependent Transfers, Impaired Self-Care Skills Pt to benefit from skilled OT intervention while hospitalized to increase functional performance and allow safe return to assisted living. Discharge Recommendations Plan/Recommendations: Continue POC Treatment Plan/Plan of Care Treatment,Training & Education: Yes Patient would benefit from OT for education, treatment and training to promote independence in ADL's, mobility, safety and/or upper extremity function for ADL' s. Plan of Care: ADL Retraining, Functional Mobility, UE Funct Exercise/Act Treatment Duration: Apr 09, 2017 Frequency: 5 times per week Estimated Hrs Per Day: .25 hour per day Rehab Potential: Good Time/GCodes Start Time: 13:57 Stop Time: 14:13 Total Time Billed (hr/min): 16 Billed Treatment Time 1 visit, EV(16minutes) JYOTI ALFONSO OT Apr 02, 2017 14:23
[2017-04-02 15:38] VITALS: BP 154/65
[2017-04-02] MEDS: ENOXAPARIN 40 MG/0.4 ML (LOVENOX) SYR SC SCH (17:42)
[2017-04-02 19:20] VITALS: BP 186/86
[2017-04-02] MEDS: GABAPENTIN 300 MG (NEURONTIN) CAP PO SCH (20:53)
[2017-04-02] MEDS: PANTOPRAZOLE 40 MG (PROTONIX) TAB PO SCH (20:53)
[2017-04-02] MEDS: guaiFENesin/CODEINE (ROBITUSSIN AC) 10ML UDC PO PRN (20:53)
[2017-04-03] VITALS: BP 136/62
[2017-04-03] MEDS: methylPREDNISolone 40 MG/ML (Solu-MEDROL) VIAL IV SCH ×4 (00:18→17:21)
[2017-04-03] MEDS: NS IV 1000 ML 1,000 ML IV SCH (02:02)
[2017-04-03] MEDS: oxyCODONE/APAP 10/325MG (PERCOCET 10) TABLET PO PRN ×4 (02:02→21:59)
[2017-04-03 04:00] VITALS: BP 162/70
[2017-04-03] MEDS: inSUlin ASPART (NovoLOG) 1 UNIT/0.01 ML (CHARGE PER UNIT) SC SCH ×4 (05:38→21:59)
[2017-04-03 05:45] LABS: RED BLOOD COUNT 3.33 10^6/uL (4.35-5.85); WHITE BLOOD COUNT 10.2 10^3/uL (4.3-11.0)
[2017-04-03 05:46] LABS: BASOPHILS % (AUTO) 0 % (0-10); EOSINOPHILS % (AUTO) 0 % (0-10); HEMATOCRIT 30 % (35-52); HEMOGLOBIN 10.4 G/DL (11.5-16.0); LYMPHOCYTES # (AUTO) 0.7 X 10^3 (1.0-4.0); LYMPHOCYTES % (AUTO) 7 % (12-44); MEAN CORPUSCULAR HEMOGLOBIN 31 PG (25-34); MEAN CORPUSCULAR HGB CONC 34 G/DL (32-36); MEAN CORPUSCULAR VOLUME 91 FL (80-99); MEAN PLATELET VOLUME 10.1 FL (7.4-10.4); MONOCYTES # (AUTO) 0.4 X 10^3 (0.0-1.0); MONOCYTES % (AUTO) 4 % (0-12); NEUTROPHILS # (AUTO) 9.1 X 10^3 (1.8-7.8); NEUTROPHILS % (AUTO) 89 % (42-75); PLATELET COUNT 224 10^3/uL (130-400); RED CELL DISTRIBUTION WIDTH 13.1 % (10.0-14.5)
[2017-04-03 06:03] LABS: CALCIUM 9.1 MG/DL (8.5-10.1); CREATININE SERUM 1.25 MG/DL (0.60-1.30); MAGNESIUM 1.4 MG/DL (1.8-2.4); POTASSIUM 3.6 MMOL/L (3.6-5.0)
[2017-04-03] MEDS: RT-ALBUTEROL/IPRATROPIUM 3 ML (DUONEB) VIAL INH SCH ×5 (06:38→21:51)
[2017-04-03] MEDS: RT-BUDESONIDE NEBS 0.5 MG/2ML (PULMICORT) AMP INH SCH ×2 (06:38→19:17)
[2017-04-03 08:00] VITALS: BP 147/67
[2017-04-03] MEDS: LORATADINE (CLARITIN) 10 MG TAB PO SCH (08:59)
[2017-04-03] MEDS: HYDROXYCHLOROQUINE 200 MG (PLAQUENIL) TAB PO SCH ×2 (08:59→21:58)
[2017-04-03] MEDS: guaiFENesin/CODEINE (ROBITUSSIN AC) 10ML UDC PO PRN (09:00)
[2017-04-03] MEDS: DULoxetine 30 MG (CYMBALTA) CAP PO SCH (09:00)
[2017-04-03] MEDS: CARVEDILOL 12.5 MG (COREG) TABLET PO SCH ×2 (09:00→21:58)
[2017-04-03] MEDS: LEVOFLOXACIN 750 MG/150 ML IV 150 ML IV SCH (09:01)
--- NOTE | 2017-04-03 11:22 | Progress Note-Hospitalist ---
Subjective HPI/CC On Admission Date Seen by Provider: Apr 03, 2017 Time Seen by Provider: 11:05 Pt is a 71yoCF who presented as a direct admission for presumed pneumonia from her PCP's office. She reports she has been feeling poorly for the last 3 weeks with cough. She was treated as an outpatient with doxycycline but continued to worsen. She was seen by her PCP yesterday with worsening dyspnea, wheezing and decision was made to direct admit for IV antibiotics for failure of outpatient treatment. She denies any fever or sputum but complains of a dry cough which has been improving today. She lives in an assisted living facility and has been around multiple sick contacts. She normally wears 2lpm of oxygen but was needed 3lpm yesterday to keep her sats up. Subjective/Events-last exam Pt reports still having cough and SOB. Did not wear CPAP overnight again because of a stuffy nose. Objective Exam Vital Signs Vital Signs Date Time Temp Pulse Resp B/P (MAP) Pulse Ox O2 Delivery O2 Flow Rate FiO2 04/01/17 15:23 97.5 68 20 142/62 (88) 95 Nasal Cannula 2.00 04/01/17 17:01 24 Capillary Refill : General Appearance: No Apparent Distress, WD/WN Respiratory: No Respiratory Distress, Rhonci, Wheezing Cardiovascular: Regular Rate, Rhythm, No Murmur Gastrointestinal: Normal Bowel Sounds, Non Tender, Soft Extremity: Non Tender, No Calf Tenderness Neurologic/Psychiatric: Alert, Oriented x3 Results/Procedures Lab Laboratory Tests 04/03/17 05:30 Assessment/Plan Assessment and Plan Assess & Plan/Chief Complaint COPD exacerbation Diagnosis/Problems Diagnosis/Problems (1) COPD exacerbation Status: Acute Assessment & Plan: Pulm consulted, appreciate recs Continue IV Steroids given still wheezing significant and oxygen requirement up Continue Levaquin MAT Protocol (2) CAP (community acquired pneumonia) Status: Acute Assessment & Plan: CXR clear but crackles clinically on exam on admission and high risk given COPD history Will continue Levaquin Does not meet sepsis criteria Flonase added Qualifiers: Qualified Codes: J18.1 - Lobar pneumonia, unspecified organism (3) LEIGHANN (acute kidney injury) Assessment & Plan: Resolved, will resume diuretics (4) Essential (primary) hypertension Assessment & Plan: Continue Coreg Hold Enalapril as no longer on MAR from [place] (5) Non-insulin dependent type 2 diabetes mellitus Assessment & Plan: SSI (6) Prophylactic measure Assessment & Plan: Lovenox Saline lock HH Diet Bowel regimen added DAWIT ETIENNE MD Apr 03, 2017 11:22
[2017-04-03] MEDS ORDERED: ANTACID SUSP 30 ML UDC (MYLANTA) PO PRN (11:30)
[2017-04-03] MEDS ORDERED: MILK OF MAGNESIA 400 MG/5 ML 30 ML UDC PO PRN (11:30)
[2017-04-03] MEDS ORDERED: BISACODYL 10 MG SUPP (DULCOLAX) PR PRN (11:30)
[2017-04-03] MEDS ORDERED: MELATONIN 3 MG TABLET PO PRN (11:30)
--- NOTE | 2017-04-03 11:53 | Physical Therapy Daily Note ---
PT Daily Note-Current Subjective Pt sitting in recliner upon arrival. Pt agrees to walk for PT. Pain Location: No Pain Reported Mental Status Patient Orientation: Person, Place, Time, Situation Attachments: Oxygen (4L), IV Transfers Functional [place] Measure 0=Not Assessed/NA 4=Minimal Assistance 1=Total Assistance 5=Supervision or Setup 2=Maximal Assistance 6=Modified [place] 3=Moderate Assistance 7=Complete IndependenceIRFPAI Quality Coding Scale 6 Independent with activity with or without an assistive device 5 Patient requires set up or clean up by helper. Patient completes activity by themselves 4 Supervision or touching assist (CGA). [place] provide cues , steadying assist 3 The helper provides less than half the effort to complete the activity 2 The helper provides more than half the effort to complete the activity 1 Dependent. The helper does all the effort to complete an activity 7 Patient refused to complete or attempt activity 9 The patient did not perform the activity before the current illness or injury 88 Not attempted due to Medical conditions or safety concerns Scootin Sit to/from Stand: 5 Weight Bearing Right Lower Extremity: Right Weight Bearing/Tolerated Left Lower Extremity: Left Weight Bearing/Tolerated Gait Training Distance (FIM): 3=150 ft Distance: 150' Gait Level of Assist: 5 Gait Persons Needed: 1 Gait Assistive Device: FWW Pt fatigues easily and gets SOA. Treatments Pt transfers from recliner to standing using FWW at SBA. Pt ambulates using FWW at SBA. Pt returns to room to rest after walk. Pt transfers back to recliner to rest with all needs met at end of tx. Assessment Current Status: Good Progress Pt fatigues and gets SOA during ambulation. PT [facility] Goals Detention Goals PT Detention Goals Time Frame: Apr 09, 2017 Transfers (B,C,W/C) (FIM): 6 Gait (FIM): 6 Gait distance (FIM): 3=150 ft Distance: 200' Gait Level of Assist: 6 Gait Assistive Device: FWW PT Plan Problem List Problem List: Activity Tolerance, Functional Strength, Gait Treatment/Plan Treatment Plan: Continue Plan of Care Treatment Plan: Bed Mobility, Education, Functional Activity [place], Functional Strength, Gait, Safety, Therapeutic Exercise, Transfers Treatment Duration: Apr 09, 2017 Frequency: 6 times per week Estimated Hrs Per Day: .25 hour per day Patient and/or Family Agrees t: Yes Time/GCodes Time In: 1110 Time Out: 1130 Total Billed Treatment Time: 20 Total Billed Treatment 1, GT (20m) PELON GARZON HVAC DESIGN MECHANICAL ENGINEER Apr 03, 2017 11:53
[2017-04-03 12:00] VITALS: BP 131/64
--- NOTE | 2017-04-03 12:38 | Cardiology Progress Note ---
Cardiology SOAP Progress Note Subjective: Still has shortness of breath. Objective: I&O/Vital Signs Vital Sign - Last 12Hours 04/03/17 04/03/17 04/03/17 04/03/17 06:38 08:00 09:00 10:56 Temp 98.5 Pulse 78 Resp 18 B/P (MAP) 147/67 (93) Pulse Ox 93 93 93 O2 Delivery Nasal Cannula Nasal Cannula Nasal Cannula Nasal Cannula O2 Flow Rate 4.00 4.00 2.00 4.00 04/03/17 04/03/17 04/03/17 12:00 13:00 14:37 Temp 98.4 Pulse 76 71 Resp 20 B/P (MAP) 131/64 (86) Pulse Ox 95 95 O2 Delivery Nasal Cannula Nasal Cannula O2 Flow Rate 4.00 4.00 Intake and Output 04/03/17 00:00 Intake Total 852 ml Output Total 680 ml Balance 172 ml Weight (Pounds): 263 Weight (Ounces): 0.0 Weight (Calculated Kilograms): 119.819447 Constitutional: appears stated age, AAO x 3, well-developed Respiratory: chest is bilaterally symmetric, lungs clear to percussion, lungs clear to auscultation Cardiovascular: regular rate-rhythm, S1 and S2 Gastrointestional: No tender, No soft, No round, No distended, No pulsatile mass, No organomegaly, No guarding, No rebound, No tenderness, No hernia, No mass, No audible bowel sounds, No abnormal bowel sounds, No abdominal bruits, No spleenomegaly, No other Extremities: No normal range of motion, No non-tender, No normal inspection, No pedal edema, No calf tenderness, No normal capillary refill, No pelvis stable , No calf tenderness, No inflammation, No pedal edema, No slow capillary refill , No swelling, No other, No abrasion, No clubbing, No cyanosis, No ecchymosis, No laceration, No no lower extremity edema bilateral, No significant edema, No tenderness, No wound Neurologic/Psychiatric: No structural metal worker II-XII nml as tested, No no motor/sensory deficits, No alert, No normal mood/affect, No oriented x 3, No abnormal cerebellar tests, No abnormal structural metal worker II-XII, No abnormal gait, No aphasia, No EOM palsy, No facial droop, No motor weakness, No sensory deficit, No depressed affect, No disoriented x 3, No other, No grossly intact, No power is 5/5 both on sides Skin: No normal color, No warm/dry, No cyanosis, No cool, No diaphoresis, No damp, No ecchymosis, No jaundice, No mottled, No pallor, No rash, No tattoos/ piercings, No ulcerations, No rash on exposed areas, No ulcerations on exposed areas, No other Results/Procedures: Labs Laboratory Tests 04/02/17 20:48: Glucometer 158H 04/03/17 05:30: White Blood Count 10.2, Red Blood Count 3.33L, Hemoglobin 10.4L, Hematocrit 30L , Mean Corpuscular Volume 91, Mean Corpuscular Hemoglobin 31, Mean Corpuscular Hemoglobin Concent 34, Red Cell Distribution Width 13.1, Platelet Count 224, Mean Platelet Volume 10.1, Neutrophils (%) (Auto) 89H, Lymphocytes (%) (Auto) 7L , Monocytes (%) (Auto) 4, Eosinophils (%) (Auto) 0, Basophils (%) (Auto) 0, Neutrophils # (Auto) 9.1H, Lymphocytes # (Auto) 0.7L, Monocytes # (Auto) 0.4, Eosinophils # (Auto) 0.0, Basophils # (Auto) 0.0, Sodium Level 139, Potassium Level 3.6, Chloride Level 99, Carbon Dioxide Level 30, Anion Gap 10, Blood Urea Nitrogen 36H, Creatinine 1.25, Estimat Glomerular Filtration Rate 42, BUN/ Creatinine Ratio 29, Glucose Level 125H, Calcium Level 9.1, Phosphorus Level 3.5 , Magnesium Level 1.4L 04/03/17 05:37: Glucometer 131H 04/03/17 09:35: Glucometer 191H Microbiology 04/01/17 Blood Culture - Preliminary, Resulted No growth 04/01/17 Influenza Types A,B Antigen (NURIA) - Final, Complete A/P: Assessment/Dx: Pneumonia, Hypertension History of congestive heart failure, PAD Plan: Deferred treatment of pneumonia to the primary team. Hypertension: carvedilol and enalapril. History of CHF: Not in congestive heart failure. Normal BNP, echocardiogram 2015 shows normal LV function. PAD: Continue outpatient therapy. Thank you for your consultation. Please call me if you have any questions. Ariel Bai MD, FACP, FACC, FSCAI, FHRS, CCDS Interventional Cardiology Cardiac Electrophysiology Vascular Medicine and Endovascular Interventions Darcy BAI MD Apr 03, 2017 12:38 pm
[2017-04-03] MEDS: SENNA W/DOCUSATE (SENOKOT S) TABLET PO PRN (12:57)
[2017-04-03] MEDS: BENZONATATE 100 MG (TESSALON) CAPSULE PO PRN (12:57)
[2017-04-03] MEDS: BUMETANIDE 1 MG (BUMEX) TAB PO SCH (12:58)
[2017-04-03] MEDS: METOLAZONE 5 MG (ZAROXOLYN) TAB PO SCH (12:58)
[2017-04-03] MEDS: FLUTICASONE NASAL SPRAY (FLONASE) 16 GM BTL NS PRN (12:59)
[2017-04-03 16:00] VITALS: BP 166/82
[2017-04-03] MEDS: ENOXAPARIN 40 MG/0.4 ML (LOVENOX) SYR SC SCH (17:21)
[2017-04-03 20:00] VITALS: BP 145/67
[2017-04-03] MEDS: GABAPENTIN 300 MG (NEURONTIN) CAP PO SCH (21:58)
[2017-04-03] MEDS: PANTOPRAZOLE 40 MG (PROTONIX) TAB PO SCH (21:58)
[2017-04-04] VITALS: BP 170/78
[2017-04-04] MEDS: methylPREDNISolone 40 MG/ML (Solu-MEDROL) VIAL IV SCH ×2 (01:25→06:21)
[2017-04-04] MEDS: ONDANSETRON 4 MG/2 ML (SDV) Z0FRAN IVP PRN (01:25)
[2017-04-04] MEDS ORDERED: FUROSEMIDE 40 MG/4 ML INJ (LASIX) ONE (01:27)
[2017-04-04] MEDS: RT-ALBUTEROL/IPRATROPIUM 3 ML (DUONEB) VIAL INH SCH ×6 (01:35→22:18)
[2017-04-04] MEDS: NS IV 1000 ML 1,000 ML IV SCH ×3 (01:37→23:47)
[2017-04-04 04:00] VITALS: BP 168/70
[2017-04-04 04:33] LABS: BASOPHILS % (AUTO) 0 % (0-10); EOSINOPHILS % (AUTO) 0 % (0-10); HEMATOCRIT 31 % (35-52); HEMOGLOBIN 10.6 G/DL (11.5-16.0); LYMPHOCYTES # (AUTO) 0.7 X 10^3 (1.0-4.0); LYMPHOCYTES % (AUTO) 9 % (12-44); MEAN CORPUSCULAR HEMOGLOBIN 31 PG (25-34); MEAN CORPUSCULAR HGB CONC 35 G/DL (32-36); MEAN CORPUSCULAR VOLUME 90 FL (80-99); MONOCYTES # (AUTO) 0.4 X 10^3 (0.0-1.0); MONOCYTES % (AUTO) 5 % (0-12); NEUTROPHILS # (AUTO) 6.8 X 10^3 (1.8-7.8); NEUTROPHILS % (AUTO) 86 % (42-75); PLATELET COUNT 211 10^3/uL (130-400); RED BLOOD COUNT 3.41 10^6/uL (4.35-5.85); RED CELL DISTRIBUTION WIDTH 13.1 % (10.0-14.5); WHITE BLOOD COUNT 7.9 10^3/uL (4.3-11.0)
[2017-04-04 04:51] LABS: CALCIUM 8.8 MG/DL (8.5-10.1); CREATININE SERUM 1.46 MG/DL (0.60-1.30); MAGNESIUM 1.6 MG/DL (1.8-2.4); POTASSIUM 2.7 MMOL/L (3.6-5.0)
--- OUTSIDE RECORDS SUMMARY | 2017-04-04 05:44 | XMS REPORT | Clinical Summary ---
Author Author [facility] Organization [facility] Address Unknown Phone Unavailable Care Team Providers Care Loadmaster Name Role Phone Bulmaro Byrne MD Unavailable Michelle Messina MD Unavailable Brooks Vu PA-C Unavailable Clare Parada DO PCP Brody Mcintosh MD Unavailable Sheri Aranda MD Unavailable Source Comments Some departments are not documenting in the electronic medical record. If you do not see the information that you expected, contact Release of Information in the Health Information Management department at [phone] for further assistance in locating additional records.[facility] Allergies Active Allergy Reactions Severity Noted Date [...] Taken Blood Pressure 145/72 01/17/2013 3:21 PM [facility] Pulse 101 01/17/2013 3:21 PM [facility] Temperature 36.9 C (98.4 F) 01/17/2013 3:21 PM [facility] Respiratory Rate 20 01/17/2013 3:21 PM [facility] Oxygen Saturation 94% 12/01/2012 11:37 AM CDT Inhaled Oxygen - - Concentration Weight 120.8 kg (266 lb 6.4 oz) 01/17/2013 3:21 PM [facility] Height 163.2 cm (5' 4.25") 01/17/2013 3:21 PM [facility] Body Mass Index 45.37 01/17/2013 3:21 PM [facility] Plan of Treatment Health Maintenance Due Date Last Done Comments PHYSICAL (COMPREHENSIVE) 1952 EXAM PERTUSSIS VACCINE 1956 TETANUS VACCINE 1962 BREAST CANCER SCREENING 1985 COLORECTAL CANCER 06/05/1995 SCREENING SHINGLES VACCINE 2005 OSTEOPOROSIS SCREENING 2010 PREVNAR/PNEUMOVAX (#1) 2010 INFLUENZA VACCINE 09/22/2016 HEPATITIS C SCREENING Completed 01/17/2013 Results Not on filefrom Last 3 Months
[2017-04-04] MEDS: inSUlin ASPART (NovoLOG) 1 UNIT/0.01 ML (CHARGE PER UNIT) SC SCH ×4 (06:15→22:03)
[2017-04-04] MEDS: RT-BUDESONIDE NEBS 0.5 MG/2ML (PULMICORT) AMP INH SCH ×2 (06:59→18:43)
[2017-04-04] MEDS ORDERED: KCL 20 MEQ TAB (K-DUR) PO NR (08:30)
[2017-04-04 08:33] VITALS: BP 185/83
[2017-04-04] MEDS: LORATADINE (CLARITIN) 10 MG TAB PO SCH (09:21)
[2017-04-04] MEDS: SENNA W/DOCUSATE (SENOKOT S) TABLET PO PRN ×2 (09:21→22:02)
[2017-04-04] MEDS: DULoxetine 30 MG (CYMBALTA) CAP PO SCH (09:21)
[2017-04-04] MEDS: BENZONATATE 100 MG (TESSALON) CAPSULE PO PRN ×2 (09:22→22:03)
[2017-04-04] MEDS: HYDROXYCHLOROQUINE 200 MG (PLAQUENIL) TAB PO SCH ×2 (09:22→22:02)
[2017-04-04] MEDS: oxyCODONE/APAP 10/325MG (PERCOCET 10) TABLET PO PRN ×3 (09:22→22:07)
[2017-04-04] MEDS: CARVEDILOL 12.5 MG (COREG) TABLET PO SCH ×2 (09:22→22:03)
[2017-04-04] MEDS: LEVOFLOXACIN 750 MG/150 ML IV 150 ML IV SCH (09:23)
[2017-04-04] MEDS: FLUTICASONE NASAL SPRAY (FLONASE) 16 GM BTL NS PRN (10:02)
[2017-04-04] MEDS: MAGNESIUM 1 GM/100 ML IVPB 100 ML IV SCH ×2 (10:03→12:03)
--- NOTE | 2017-04-04 11:20 | Progress Note-Hospitalist ---
Subjective HPI/CC On Admission Date Seen by Provider: Apr 04, 2017 Time Seen by Provider: 09:50 Pt is a 71yoCF who presented as a direct admission for presumed pneumonia from her PCP's office. She reports she has been feeling poorly for the last 3 weeks with cough. She was treated as an outpatient with doxycycline but continued to worsen. She was seen by her PCP yesterday with worsening dyspnea, wheezing and decision was made to direct admit for IV antibiotics for failure of outpatient treatment. She denies any fever or sputum but complains of a dry cough which has been improving today. She lives in an assisted living facility and has been around multiple sick contacts. She normally wears 2lpm of oxygen but was needed 3lpm yesterday to keep her sats up. Subjective/Events-last exam Pt reports doing ok but had some nausea last night so did not sleep with her CPAP. Objective Exam Vital Signs Vital Signs Date Time Temp Pulse Resp B/P (MAP) Pulse Ox O2 Delivery O2 Flow Rate FiO2 04/01/17 15:23 97.5 68 20 142/62 (88) 95 Nasal Cannula 2.00 04/01/17 17:01 24 Capillary Refill : General Appearance: No Apparent Distress, WD/WN Respiratory: No Accessory Muscle Use, No Respiratory Distress, Rhonci, No Wheezing Cardiovascular: Regular Rate, Rhythm, No Murmur Neurologic/Psychiatric: Alert, Oriented x3, Normal Mood/Affect Results/Procedures Lab Laboratory Tests 04/04/17 04:25 Assessment/Plan Assessment and Plan Assess & Plan/Chief Complaint COPD exacerbation Diagnosis/Problems Diagnosis/Problems (1) COPD exacerbation Status: Acute Assessment & Plan: Pulm consulted, appreciate recs Switch to oral steroids Continue Levaquin MAT Protocol (2) CAP (community acquired pneumonia) Status: Acute Assessment & Plan: CXR clear but crackles clinically on exam on admission and high risk given COPD history Will continue Levaquin for 5 days Does not meet sepsis criteria Flonase added Qualifiers: Qualified Codes: J18.1 - Lobar pneumonia, unspecified organism (3) LEIGHANN (acute kidney injury) Assessment & Plan: Creatinine up again- seems to go up on days of diuretics and resolves on off days Will trend tomorrow- may need to decrease frequency further (4) Essential (primary) hypertension Assessment & Plan: Continue Coreg Hold Enalapril as no longer on MAR from [place] (5) Non-insulin dependent type 2 diabetes mellitus Assessment & Plan: SSI (6) Prophylactic measure Assessment & Plan: Lovenox Saline lock HH Diet Bowel regimen added DAWIT ETIENNE MD Apr 04, 2017 11:20
--- NOTE | 2017-04-04 11:48 | Cardiology Progress Note ---
Cardiology SOAP Progress Note Subjective: Continues to have cough and wheezing. Objective: I&O/Vital Signs Vital Sign - Last 12Hours 04/04/17 04/04/17 04/04/17 04/04/17 00:00 01:00 04:00 06:59 Temp 98.7 97.9 Pulse 73 70 69 Resp 14 20 B/P (MAP) 170/78 (108) 168/70 (102) Pulse Ox 93 95 95 O2 Delivery Nasal Cannula Nasal Cannula Nasal Cannula O2 Flow Rate 4.00 4.00 4.00 04/04/17 04/04/17 04/04/17 07:00 08:33 09:55 Temp 97.5 Pulse 66 71 Resp 18 B/P (MAP) 185/83 (117) Pulse Ox 96 95 O2 Delivery Nasal Cannula Nasal Cannula O2 Flow Rate 4.00 4.00 Intake and Output 04/04/17 00:00 Intake Total 2430 ml Output Total 2650 ml Balance -220 ml Weight (Pounds): 263 Weight (Ounces): 0.0 Weight (Calculated Kilograms): 119.926728 Constitutional: appears stated age, AAO x 3, well-developed Respiratory: chest is bilaterally symmetric, lungs clear to percussion, lungs clear to auscultation, wheezing Cardiovascular: regular rate-rhythm, S1 and S2 Gastrointestional: No tender, No soft, No round, No distended, No pulsatile mass, No organomegaly, No guarding, No rebound, No tenderness, No hernia, No mass, No audible bowel sounds, No abnormal bowel sounds, No abdominal bruits, No spleenomegaly, No other Extremities: No normal range of motion, No non-tender, No normal inspection, No pedal edema, No calf tenderness, No normal capillary refill, No pelvis stable , No calf tenderness, No inflammation, No pedal edema, No slow capillary refill , No swelling, No other, No abrasion, No clubbing, No cyanosis, No ecchymosis, No laceration, No no lower extremity edema bilateral, No significant edema, No tenderness, No wound Neurologic/Psychiatric: No regional vice president life sales II-XII nml as tested, No no motor/sensory deficits, No alert, No normal mood/affect, No oriented x 3, No abnormal cerebellar tests, No abnormal regional vice president life sales II-XII, No abnormal gait, No aphasia, No EOM palsy, No facial droop, No motor weakness, No sensory deficit, No depressed affect, No disoriented x 3, No other, No grossly intact, No power is 5/5 both on sides Skin: No normal color, No warm/dry, No cyanosis, No cool, No diaphoresis, No damp, No ecchymosis, No jaundice, No mottled, No pallor, No rash, No tattoos/ piercings, No ulcerations, No rash on exposed areas, No ulcerations on exposed areas, No other Results/Procedures: Labs Laboratory Tests 04/03/17 16:02: Glucometer 116H 04/03/17 20:58: Glucometer 123H 04/04/17 04:25: White Blood Count 7.9, Red Blood Count 3.41L, Hemoglobin 10.6L, Hematocrit 31L, Mean Corpuscular Volume 90, Mean Corpuscular Hemoglobin 31, Mean Corpuscular Hemoglobin Concent 35, Red Cell Distribution Width 13.1, Platelet Count 211, Mean Platelet Volume 10.0, Neutrophils (%) (Auto) 86H, Lymphocytes (%) (Auto) 9L , Monocytes (%) (Auto) 5, Eosinophils (%) (Auto) 0, Basophils (%) (Auto) 0, Neutrophils # (Auto) 6.8, Lymphocytes # (Auto) 0.7L, Monocytes # (Auto) 0.4, Eosinophils # (Auto) 0.0, Basophils # (Auto) 0.0, Sodium Level 139, Potassium Level 2.7L, Chloride Level 97L, Carbon Dioxide Level 28, Anion Gap 14, Blood Urea Nitrogen 43H, Creatinine 1.46H, Estimat Glomerular Filtration Rate 35, BUN/ Creatinine Ratio 29, Glucose Level 135H, Calcium Level 8.8, Magnesium Level 1.6L 04/04/17 11:20: Glucometer 167H Microbiology 04/01/17 Blood Culture - Preliminary, Resulted No growth 04/01/17 Influenza Types A,B Antigen (NURIA) - Final, Complete A/P: Assessment/Dx: Pneumonia, Hypertension History of congestive heart failure, PAD Plan: Deferred treatment of pneumonia to the primary team. Still having cough, mild shortness of breath and wheezing. Hypertension: carvedilol and enalapril. History of CHF: Not in congestive heart failure. Normal BNP, echocardiogram 9/ 2016 shows normal LV function. PAD: Continue outpatient therapy. Patient of Dr. Lozano. Thank you for your consultation. Please call me if you have any questions. Ariel Berry MD, FACP, FACC, FSCAI, FHRS, CCDS Interventional Cardiology Cardiac Electrophysiology Vascular Medicine and Endovascular Interventions Darcy BERRY MD Apr 04, 2017 11:47 am
[2017-04-04 12:00] VITALS: BP 145/68
[2017-04-04 16:10] VITALS: BP 184/75
[2017-04-04] MEDS: ENOXAPARIN 40 MG/0.4 ML (LOVENOX) SYR SC SCH (17:30)
[2017-04-04 20:59] VITALS: BP 152/72
[2017-04-04] MEDS: GABAPENTIN 300 MG (NEURONTIN) CAP PO SCH (22:03)
[2017-04-04] MEDS: PANTOPRAZOLE 40 MG (PROTONIX) TAB PO SCH (22:04)
[2017-04-05] VITALS: BP 150/80
[2017-04-05] MEDS: RT-ALBUTEROL/IPRATROPIUM 3 ML (DUONEB) VIAL INH SCH ×4 (01:30→15:01)
[2017-04-05] MEDS: ONDANSETRON 4 MG/2 ML (SDV) Z0FRAN IVP PRN (03:12)
[2017-04-05 03:39] VITALS: BP 135/93
[2017-04-05] MEDS: oxyCODONE/APAP 10/325MG (PERCOCET 10) TABLET PO PRN ×2 (05:20→05:24)
--- NOTE | 2017-04-05 05:28 | Pulmonary Progress Note ---
Subjective Time Seen by Provider: 05:28 Subjective/Events-last exam Pt feels much improved. No complications noted. Exam Exam Vital Signs Date Time Temp Pulse Resp B/P (MAP) Pulse Ox O2 Delivery O2 Flow Rate FiO2 04/05/17 03:39 97.0 57 18 135/93 (107) 97 Nasal Cannula 2.00 04/05/17 01:30 98 Nasal Cannula 3.00 04/05/17 01:00 55 04/05/17 00:00 97.0 55 18 150/80 (103) 98 Nasal Cannula 3.00 04/04/17 22:18 95 Nasal Cannula 3.00 04/04/17 21:00 Nasal Cannula 2.00 04/04/17 20:59 96.9 60 20 152/72 (98) 98 Nasal Cannula 3.00 04/04/17 19:00 55 04/04/17 18:50 Nasal Cannula 3.00 04/04/17 18:43 85 99 04/04/17 18:43 99 Nasal Cannula 4.00 04/04/17 16:10 97.1 68 18 184/75 (111) 98 Nasal Cannula 4.00 04/04/17 14:37 59 04/04/17 13:00 59 04/04/17 12:00 97.6 82 18 145/68 (93) 95 Nasal Cannula 4.00 04/04/17 09:55 95 Nasal Cannula 4.00 04/04/17 09:00 Nasal Cannula 4.00 04/04/17 08:33 97.5 71 18 185/83 (117) 96 Nasal Cannula 4.00 04/04/17 07:00 66 04/04/17 06:59 95 Nasal Cannula 4.00 I & O 04/05/17 07:00 Intake Total 1340 ml Output Total 1350 ml Balance -10 ml General Appearance: No Apparent Distress, WD/WN HEENT: PERRL/EOMI, Moist Mucous Membranes Neck: Non Tender, Supple Respiratory: No Accessory Muscle Use, No Respiratory Distress, Rhonci, No Wheezing Cardiovascular: Regular Rate, Rhythm, No Murmur Gastrointestinal: normal bowel sounds, non tender, soft, no organomegaly Extremity: Non Tender, No Calf Tenderness Neurologic/Psychiatric: Alert, Oriented x3, Normal Mood/Affect Skin: Normal Color, Warm/Dry Lymphatic: No Adenopathy Results Lab Laboratory Tests 04/03/17 05:30 04/04/17 04:25 Assessment/Plan Assessment/Plan COPDAE -SVNs -steroids decrease to 40mg Q6 -Continue prednisone taper Severe VALDO with morbid obesity CHF systolic with EF of 30% ARF -start NS at 50cc/hr HTN I will have pt see me in 2 wks. She is ok for discharge from pulmonary standpoint. 232 Clinical Quality Measures DVT/VTE Risk/Contraindication: Risk Factor Score Per Nursin RFS Level Per Nursing on Admit: 4+=Very High JORGE DORADO DO Apr 05, 2017 05:28
[2017-04-05 06:43] LABS: BASOPHILS % (AUTO) 0 % (0-10); EOSINOPHILS % (AUTO) 0 % (0-10); HEMATOCRIT 32 % (35-52); LYMPHOCYTES # (AUTO) 1.1 X 10^3 (1.0-4.0); LYMPHOCYTES % (AUTO) 12 % (12-44); MEAN CORPUSCULAR HEMOGLOBIN 30 PG (25-34); MEAN CORPUSCULAR HGB CONC 34 G/DL (32-36); MEAN CORPUSCULAR VOLUME 89 FL (80-99); MEAN PLATELET VOLUME 10.2 FL (7.4-10.4); MONOCYTES # (AUTO) 1.2 X 10^3 (0.0-1.0); MONOCYTES % (AUTO) 12 % (0-12); NEUTROPHILS # (AUTO) 7.4 X 10^3 (1.8-7.8); NEUTROPHILS % (AUTO) 76 % (42-75); PLATELET COUNT 209 10^3/uL (130-400); RED BLOOD COUNT 3.63 10^6/uL (4.35-5.85); RED CELL DISTRIBUTION WIDTH 12.9 % (10.0-14.5); WHITE BLOOD COUNT 9.7 10^3/uL (4.3-11.0)
[2017-04-05 06:56] LABS: CALCIUM 8.8 MG/DL (8.5-10.1); CREATININE SERUM 1.17 MG/DL (0.60-1.30); MAGNESIUM 1.8 MG/DL (1.8-2.4); PHOSPHORUS 3.1 MG/DL (2.3-4.7); POTASSIUM 2.8 MMOL/L (3.6-5.0)
[2017-04-05] MEDS: RT-BUDESONIDE NEBS 0.5 MG/2ML (PULMICORT) AMP INH SCH (07:00)
[2017-04-05] MEDS: DULoxetine 30 MG (CYMBALTA) CAP PO SCH (08:24)
[2017-04-05] MEDS: LORATADINE (CLARITIN) 10 MG TAB PO SCH (08:24)
[2017-04-05] MEDS: inSUlin ASPART (NovoLOG) 1 UNIT/0.01 ML (CHARGE PER UNIT) SC SCH ×2 (08:24→11:19)
[2017-04-05] MEDS: CARVEDILOL 12.5 MG (COREG) TABLET PO SCH (08:24)
[2017-04-05] MEDS: HYDROXYCHLOROQUINE 200 MG (PLAQUENIL) TAB PO SCH (08:24)
[2017-04-05 08:25] VITALS: BP 173/89
--- NOTE | 2017-04-05 08:29 | Cardiology Progress Note ---
Subjective Date Seen by Provider: Apr 05, 2017 Time Seen by Provider: 08:23 Subjective/Events-last exam Patient sitting up in chair, no new complaints. Reports continues to have cough , but dyspnea has improved. Denies any CP. Review of Systems General: No Chills, No Night Sweats, Fatigue HEENT: No Visual Changes, No Dysphasia, No Sore Throat Pulmonary: No Dyspnea, Cough, No Pleuritic Chest Pain Cardiovascular: Edema, No: Chest Pain, Palpitations, Paroxysmal Noc. Dyspnea Gastrointestinal: No: Nausea, Vomiting, Constipation Genitourinary: No Dysuria, No Frequency Musculoskeletal: No: neck pain, back pain Neurological: No: Weakness, Numbness, Change in speech, Confusion Objective-Cardiology Exam Last Set of Vital Signs Vital Signs 04/01/17 04/05/17 04/05/17 17:01 03:39 07:05 Temp 97.0 Pulse 57 Resp 18 B/P (MAP) 135/93 (107) Pulse Ox 98 O2 Delivery Nasal Cannula O2 Flow Rate 3.00 FiO2 24 Capillary Refill : I&O Intake and Output 04/05/17 00:00 Intake Total 1340 ml Output Total 1850 ml Balance -510 ml Intake Oral 990 ml IV Total 350 ml Output Urine Total 1850 ml General: Alert, Oriented X3, Cooperative HEENT: Atraumatic, PERRLA Neck: Supple, No JVD, No Thyromegaly Lungs: Normal Air Movement, Other (bilat wheezing) Heart: Regular Rate, Normal S1, Normal S2, No Murmurs Abdomen: Normal Bowel Sounds, Soft, No Tenderness, No Hepatosplenomegaly, No Masses Extremities: No Clubbing, No Cyanosis, No Edema, Normal Pulses, No Tenderness/ Swelling Skin: No Rashes, No Significant Lesion Neuro: Normal Speech, Cranial Nerves 3-12 NL Psych/Mental Status: Mental Status NL, Mood NL Results Lab Laboratory Tests 04/05/17 06:10 A/P-Cardiology Admission Diagnosis AE COPD Pneumonia CHF HTN Assessment/Plan AE COPD- improved, management per Dr. Andrew Pneumonia- improved, continue on antibiotics and continue to monitor. Nonischemic cardiomyopathy, MUGA scan was done in November 2015 showing ejection fraction 55 percent. Has multiple episodes of fluid overload in the past. No evidence of congestive heart failure on this admission. Continue on current medications and monitor. Mild coronary artery disease nonobstructive disease by cardiac catheterization done in May 2014. Continue to monitor at this time. Peripheral arterial disease, history of abdominal aortogram with angiogram to the lower extremities done by Dr. Cosme, reported to good vessel runoff to the lower extremities, medical therapy was recommended, repeat Peripheral runoff showed total occlusion of the anterior tibial artery and both lower extremities with brisk flow. It was done in March 2016, patient was referred by Dr. Kate to [facility] and had angioplasty and stent done using drug-eluting stent Promus 3.524 mm to the anterior tibial artery on the right side with good results. Reporting healing ulcer. KATTY done January 2017 WNL. Hypertension, controlled on the current medications, no changes are recommended. Moderate bilateral carotid stenosis, ultrasound was done in October 2016. Continue to monitor CREST syndrome, managed by her cumulative effects analyst. Peripheral edema, chronic, continue to monitor. History of multiple back and knee surgeries, had spinal fusion surgery done Chronic renal insufficiency, continue to monitor renal functions. History of elevated liver enzymes, followed by primary care physician Obesity, patient was educated on weight loss History of anemia, followed and managed by primary care physician TANYA for discharge from Cardiology standpoint. Follow up in 2-4 weeks. Clinical Quality Measures DVT/VTE Risk/Contraindication: Risk Factor Score Per Nursin RFS Level Per Nursing on Admit: 4+=Very High RUBA SAMUEL Apr 05, 2017 08:29
[2017-04-05] MEDS ORDERED: predniSONE 10 MG TAB PO SCH (09:00)
--- NOTE | 2017-04-05 09:01 | Cardiology Progress Note ---
Subjective Date Seen by Provider: Apr 05, 2017 Time Seen by Provider: 08:59 Subjective/Events-last exam Patient is sitting in a chair, had breakfast, having mild dyspnea, reporting significant improvement. Denied any chest pain or palpitation. Review of Systems General: No Chills, No Night Sweats, No Fatigue, No Malaise, No Appetite, No Other HEENT: No Head Aches, No Visual Changes, No Eye Pain, No Ear Pain, No Dysphasia , No Sinus Congestion, No Post Nasal Drip, No Sore Throat, No Other Pulmonary: Dyspnea, Cough, No Pleuritic Chest Pain, No Other Cardiovascular: Edema, No: Chest Pain, Palpitations, Orthopnea, Paroxysmal Noc. Dyspnea, Lt Headedness, Other Objective-Cardiology Exam Last Set of Vital Signs Vital Signs 04/01/17 04/05/17 17:01 08:25 Temp 96.4 Pulse 66 Resp 20 B/P (MAP) 173/89 (117) Pulse Ox 94 O2 Delivery Nasal Cannula O2 Flow Rate 2.00 FiO2 24 Capillary Refill : I&O Intake and Output 04/05/17 00:00 Intake Total 1340 ml Output Total 1850 ml Balance -510 ml Intake Oral 990 ml IV Total 350 ml Output Urine Total 1850 ml General: Alert, Oriented X3, Cooperative HEENT: Atraumatic, PERRLA Neck: Supple, No JVD, No Thyromegaly Lungs: Normal Air Movement, Other (bilat wheezing, rhonchi) Heart: Regular Rate, Normal S1, Normal S2, No Murmurs Abdomen: Normal Bowel Sounds, Soft, No Tenderness, No Hepatosplenomegaly, No Masses Extremities: No Clubbing, No Cyanosis, No Edema, Normal Pulses, No Tenderness/ Swelling Skin: No Rashes, No Significant Lesion Neuro: Normal Speech, Cranial Nerves 3-12 NL Psych/Mental Status: Mental Status NL, Mood NL Results Lab Laboratory Tests 04/05/17 06:10 A/P-Cardiology Admission Diagnosis AE COPD Pneumonia CHF HTN Assessment/Plan AE COPD- improved, management per Dr. Andrew Pneumonia- improved, continue on antibiotics and continue to monitor, managed by Dr. Andrew Hypokalemia, I will give additional 40 mEq KCl IV, monitor electrolyte as an outpatient Nonischemic cardiomyopathy, MUGA scan was done in November 2015 showing ejection fraction 55 percent. Has multiple episodes of fluid overload in the past. No evidence of congestive heart failure on this admission. Continue on current medications and monitor. Mild coronary artery disease nonobstructive disease by cardiac catheterization done in May 2014. Continue to monitor at this time. Peripheral arterial disease, history of abdominal aortogram with angiogram to the lower extremities done by Dr. Cosme, reported to good vessel runoff to the lower extremities, medical therapy was recommended, repeat Peripheral runoff showed total occlusion of the anterior tibial artery and both lower extremities with brisk flow. It was done in March 2016, patient was referred by Dr. Kate to [facility] and had angioplasty and stent done using drug-eluting stent Promus 3.524 mm to the anterior tibial artery on the right side with good results. Reporting healing ulcer. KATTY done January 2017 WNL. Hypertension, controlled on the current medications, no changes are recommended. Moderate bilateral carotid stenosis, ultrasound was done in October 2016. Continue to monitor CREST syndrome, managed by her practice architect. Peripheral edema, chronic, continue to monitor. History of multiple back and knee surgeries, had spinal fusion surgery done Chronic renal insufficiency, continue to monitor renal functions. History of elevated liver enzymes, followed by primary care physician Obesity, patient was educated on weight loss History of anemia, followed and managed by primary care physician OK for discharge from Cardiology standpoint. Follow up in 2-4 weeks. Clinical Quality Measures DVT/VTE Risk/Contraindication: Risk Factor Score Per Nursin RFS Level Per Nursing on Admit: 4+=Very High DEVI LONDON MD Apr 05, 2017 09:01
[2017-04-05] MEDS: POTASSIUM CL 10MEQ/50ML IVPB 50 ML IV SCH ×3 (09:35→11:19)
[2017-04-05] MEDS ORDERED: LEVOFLOXACIN 750 MG TAB (LEVAQUIN) PO SCH (11:00)
--- NOTE | 2017-04-05 11:00 | Progress Note-Hospitalist ---
Standard Progress Note Progress Notes/Assess & Plan Date Seen 04/05/17 Time Seen by Provider: 10:57 Diagnosis CAP and COPD Exacerbation Assess & Plan/Chief Complaint The patient reports that she is considerably better than on her admission. She has chronic respiratory problems and uses O2 per nasal cannula at 2 L/m chronically and CPAP at bed time. She lives in an apartment at [place] and has assisted living services. She has been afebrile. Initially she required 4 L/m per nasal cannula to keep her SaO2 in satisfactory range. She has been at 94-5 percent SaO2 at 2 L for the past 2 days. Physical exam. The patient looks older than her stated age. Lungs show rather distant breath sounds. There are rhonchi on the right which clear when she is asked to cough. CV is regular. Ankles show no pedal edema. Impression: 1.viral/flulike illness. 2.exacerbation of COPD. Plan: Discharge to [place]. See discharge sequence for medications and activities. Labs Laboratory Tests 04/04/17 04:25 04/05/17 06:10 Copy Copies To 1: SIENNA MADERA RODNEY K MD Apr 05, 2017 11:00
--- NOTE | 2017-04-05 11:06 | Discharge Instructions ---
Discharge Instructions Patient Instructions Patient Instructions: O2 at 2 L/m by nasal cannula continuously. CPAP at at bedtime as before. Resume activities and medications as on the discharge sequence. [facility] to [facility] For: Decline in performance Activity & Diet Discharge Diet: No Restrictions Activity as Tolerated: Yes RUTHANN CUEVAS MD Apr 05, 2017 11:06
[2017-04-05] MEDS: BUMETANIDE 1 MG (BUMEX) TAB PO SCH (11:19)
[2017-04-05] MEDS: METOLAZONE 5 MG (ZAROXOLYN) TAB PO SCH (11:20)
[2017-04-05] MEDS ORDERED: PRED10TA22 PO (13:56)
[2017-04-05] MEDS: ENOXAPARIN 40 MG/0.4 ML (LOVENOX) SYR SC SCH (16:31)
[2017-04-05 17:00] VITALS: BP 173/89
== END 2017-04-05 17:00 | DRG 193 ==
LOC: 4TH 14:55
PROVIDERS: ADMIT Family Medicine; ATTEND Family Medicine
DX: J18.9 Pneumonia, unspecified organism (principal); J44.1 Chronic obstructive pulmonary disease with (acute) exacerbation; J96.20 Acute and chronic respiratory failure, unspecified whether with hypoxia or hypercapnia; Z68.42 Body mass index [BMI] 45.0-49.9, adult; J44.0 Chronic obstructive pulmonary disease with (acute) lower respiratory infection; I13.10 Hypertensive heart and chronic kidney disease without heart failure, with stage 1 through stage 4 chronic kidney disease, or unspecified chronic kidney disease; N18.9 Chronic kidney disease, unspecified; N17.9 Acute kidney failure, unspecified; I42.9 Cardiomyopathy, unspecified; G47.33 Obstructive sleep apnea (adult) (pediatric); E66.01 Morbid (severe) obesity due to excess calories; E11.9 Type 2 diabetes mellitus without complications; I73.9 Peripheral vascular disease, unspecified; G62.9 Polyneuropathy, unspecified; E78.00 Pure hypercholesterolemia, unspecified; K21.9 Gastro-esophageal reflux disease without esophagitis; M06.9 Rheumatoid arthritis, unspecified; M19.91 Primary osteoarthritis, unspecified site; F41.9 Anxiety disorder, unspecified; F32.9 Major depressive disorder, single episode, unspecified; M54.9 Dorsalgia, unspecified; Z87.891 Personal history of nicotine dependence; Z85.3 Personal history of malignant neoplasm of breast; Z86.79 Personal history of other diseases of the circulatory system; Z86.2 Personal history of diseases of the blood and blood-forming organs and certain disorders involving the immune mechanism; Z98.1 Arthrodesis status; I65.23 Occlusion and stenosis of bilateral carotid arteries; I25.10 Atherosclerotic heart disease of native coronary artery without angina pectoris; M34.1 CR(E)ST syndrome; Z95.5 Presence of coronary angioplasty implant and graft
CPT/HCPCS: 36415; 71046; 80048; 80053; 82805; 82962; 83605; 83735; 83880; 84100; 84484; 85025; 87040; 87804; 93005; 94640; 94664; 94760

== ENCOUNTER 2017-04-19 08:41 | Inpatient (IN) | payer MEDICARE, OTHER ==
[~2017-04-19] VITALS: Ht 162.6 cm; Wt 119.3 kg
[~2017-04-19 08:41] MED LIST changes: +AD60O TP; +CETI-214 PO; +CLOP75TA69 PO; +GUAI473L29 PO; +GUAI5SYR PO; +MENT71OI TP; +METO5TAB6 PO; +PRED10TA22 PO; +SIMV20TA3 PO; +TETR15DR74 OP; +[UNRECOGNIZED DRUG - CODE] TP
[2017-04-19] MEDS ORDERED: LACTATED RINGERS 1,000 ML IV ONE (09:11)
--- NOTE | 2017-04-19 09:18 | ED Fall/Injury ---
General Stated Complaint: AMS Source: patient Exam Limitations: no limitations History of Present Illness Date Seen by Provider: Apr 19, 2017 Time Seen by Provider: 09:05 Initial Comments Patient presents to the ER by EMS from [facility] were apparent she had a fall yesterday and she does not think she passed out but she did strike her head. She landed on her left hip and still having some pain in her left hip. Staff called EMS today because they noted her to be altered, confused. The patient says she was recently in the hospital for pneumonia and she been in the hospital several times her for a Port-A-Cath was placed. She denies any problems urinating or having bowel movements, chest pain, shortness of breath, nausea, sweats, fevers, chills. She is not sure if she still on antibiotics or not. Records and nursing notes do not indicate the patient is on antibiotic however she is on prednisone. She did take her a.m. meds. Her last oral intake prior to that was she had some Chex mix along with an oxycodone at 0200 this morning. The patient is on Plavix. She is also on Bumex and metolazone. Patient's having some pain in her left hip as well as her right shoulder but she says the right shoulder pain is chronic from a history of rotator cuff injuries and she thinks wall hurts a little more it's just aggravated from the fall. Allergies and Home Medications Allergies Coded Allergies: NSAIDS (Non-Steroidal Anti-Inflamma (Unverified Allergy, Mild, 03/18/09) Penicillins (Verified Allergy, Unknown, 01/03/06) Sulfa (Sulfonamide Antibiotics) (Verified Allergy, Unknown, 01/03/06) aspirin (Verified Allergy, Unknown, 01/03/06) carbamazepine (Verified Allergy, Unknown, 09/20/06) cephalexin (Verified Allergy, Unknown, 01/03/06) iodine (Verified Allergy, Unknown, 01/03/06) latex (Unverified Allergy, Unknown, 06/21/13) Home Medications Bumetanide 2 Mg Tablet, 2 MG PO Q48H, (Reported) Carvedilol 12.5 Mg Tablet, 12.5 MG PO BID, (Reported) Cetirizine HCl 10 Mg Tablet, 10 MG PO DAILY, (Reported) Cholecalciferol (Vitamin D3) 2,000 Unit Capsule, 2,000 UNIT PO HS, (Reported) Clopidogrel Bisulfate 75 Mg Tablet, 75 MG PO DAILY, (Reported) Duloxetine HCl 60 Mg Capsule.dr, 60 MG PO DAILY, (Reported) Enalapril Maleate 5 Mg Tablet, 2.5 MG PO DAILY, (Reported) TAKES 1/2 (5MG) TABLET Esomeprazole Magnesium 40 Mg Cap, 40 MG PO HS, (Reported) Fluticasone Propionate 16 Gm [place].susp, 1 SPRAY NS DAILY PRN for ALLERGIES, ( Reported) Fluticasone/Salmeterol 1 Each Blst.w.dev, 1 PUFF IH BID, (Reported) Gabapentin 300 Mg Capsule, 300 MG PO HS, (Reported) Guaifenesin/Codeine Phosphate 473 Ml Liquid, 5 ML PO Q6H PRN for COUGH, ( Reported) Guaifenesin/Dextromethorphan 5 Ml Syrup, 5 ML PO Q6H PRN for COUGH, (Reported) Hydrocortisone Butyrate 15 Gm Cream..g., TP BID PRN for INFLAMMATION, (Reported) Hydroxychloroquine Sulfate 200 Mg Tablet, 200 MG PO 1200,1700, (Reported) Ipratropium/Albuterol Sulfate 3 Ml Ampul.neb, 3 ML NEB TID PRN for SHORTNESS OF BREATH, (Reported) Menthol/Lanolin/Calamine/Znox 71 Gm Oint, TP UD PRN for IRRITATION, (Reported) APPLY TO JARETT AREA Metolazone 5 Mg Tablet, 5 MG PO Q48H, (Reported) Oxycodone HCl 20 Mg Tablet, 20 MG PO Q6H PRN for PAIN-SEVERE, (Reported) Potassium Chloride 10 Meq Capsule.er, 20 MEQ PO 1200,1700, (Reported) TAKES 2 (10MEQ) CAPSULES Prednisone 10 Mg Tab.ds.pk, 10 MG PO DAILY take 50 mg on 04/06 take 40 mg on 04/07 take 30 mg on 04/08 take 20 mg on 04/09 take 10 mg on 04/10 Prescribed by: PEDRO LYNN on 04/05/17 1356 Simvastatin 20 Mg Tablet, 20 MG PO HS, (Reported) Vitamin A & D 60 Gm Oint, TP DAILY PRN, (Reported) APPLY TO BLE & FEET Constitutional: see HPI (patient is not able to give a very thorough history secondary to her confusion but nursing reports that she had a hard time answering questions today and this is new. She has a history of pneumonia she denies any cough, fevers or chills right now. She has no nausea vomiting or diarrhea.) Eyes: Denies Blindness, Denies Blurred Vision Ears, Nose, Mouth, Throat: denies ear pain, denies nose pain Respiratory: No cough, No phlegm Cardiovascular: No chest pain, No syncope Gastrointestinal: No abdominal pain, No constipation, No diarrhea, No nausea Genitourinary: No discharge, No dysuria Skin: No pruritus, No rash Past Uhonnnt-Zuthsp-Dodxkp Hx Patient Social History Alcohol Use: Denies Use Recreational Drug Use: No Smoking Status: Former Smoker Type Used: Cigarettes Former Smoker, Quit: Mar 25, 1994 2nd Hand Smoke Exposure: No Recent Hopitalizations: No Immunizations Up To Date Tetanus Booster (TDap): Unknown PED Vaccines UTD: No Date of Pneumonia Vaccine: Feb 24, 2011 Seasonal Allergies Seasonal Allergies: No Surgeries History of Surgeries: Yes (MULT KNEE, BACK FUSION, NASAL SURGERY, ROTATOR CUFF REPAIR, RT BREAST L) Surgeries: Adenoidectomy, Appendectomy, Hysterectomy, Lumpectomy, Orthopedic, Tonsillectomy, Tubal Ligation Respiratory History of Respiratory Disorde: Yes Respiratory Disorders: Asthma, Sleep Apnea, COPD Currently Using CPAP: Yes Cardiovascular History of Cardiac Disorders: Yes (CHF) Cardiac Disorders: Chronic Edema/Swelling, High Cholesterol, Hypertension Neurological History of Neurological Disord: Yes Neurological Disorders: Neuropathy Reproductive System Hx Reproductive Disorders: No Sexually Transmitted Disease: No HIV/AIDS: No Female Reproductive Disorders: Denies Genitourinary History of Genitourinary Disor: Yes (chronic kidney dz) Genitourinary Disorders: Renal Failure Gastrointestinal History of Gastrointestinal Di: Yes Gastrointestinal Disorders: Gastroesophageal Reflux, Gall Bladder Disease Musculoskeletal History of Musculoskeletal Dis: Yes (KNEE SURGERIES, BACK SURGERY) Musculoskeletal Disorders: Degenerate Disk Disease, Arthritis, Rheumatoid Arthritis, Chronic Back Pain Endocrine History of Endocrine Disorders: No HEENT Loss of Vision: Bilateral Hearing Impairment: Denies Cancer History of Cancer: Yes Cancer: Breast Psychosocial History of Psychiatric Problem: Yes Behavioral Health Disorders: Anxiety, Depression Integumentary History of Skin or Integumenta: No Blood Transfusions History of Blood Disorders: Yes (IMMUNOGLOBULIN DEFICIENCY) Adverse Reaction to a Blood Tr: No Family Medical History Significant Family History: No Pertinent Family Hx Family Medial History: Cancer G8 SISTER Congestive heart failure 19 FATHER Family history: Cardiovascular disease 19 FATHER 19 MOTHER G8 BROTHER Family history: Coronary thrombosis 19 FATHER 19 MOTHER Family history: Hypertension 19 MOTHER Stroke 19 MOTHER G8 BROTHER Physical Exam Vital Signs Vital Signs - First Documented 04/19/17 08:41 Temp 97.5 Pulse 69 Resp 14 B/P (MAP) 109/79 (89) Pulse Ox 97 O2 Delivery Nasal Cannula O2 Flow Rate 2.00 Capillary Refill : General Appearance: no apparent distress, obese HEENT: PERRL/EOMI, normal ENT inspection, TMs normal, pharynx normal (oral mucosa is dry) Neck: non-tender, supple, normal inspection Cardiovascular: normal peripheral pulses, regular rate, rhythm, other (1+ pedal edema) Respiratory: chest non-tender, lungs clear, normal breath sounds, no respiratory distress, no accessory muscle use Peripheral Pulses: 1+ Radial Pulses (R), 1+ Radial Pulses (L) Gastrointestinal: normal bowel sounds, non tender, soft Back: normal inspection, no vertebral tenderness Extremities: normal capillary refill, pedal edema (1+) Neurologic/Psychiatric: 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, no motor/sensory deficits, alert, normal mood/affect, oriented x 3 (person and place but not time) Skin: normal color, warm/dry Johanna Coma Score Best Eye Response: (4) Open Spontaneously Best Verbal Response: (4) Confused Conversation Best Motor Response: (6) Obeys Commands [place] Total: 14 Progress/Results/Core Measures Results/Orders Lab Results Laboratory Tests Test 04/19/17 09:10 04/19/17 11:48 Range/Units White Blood Count 10.6 4.3-11.0 10^3/uL Red Blood Count 3.31 L 4.35-5.85 10^6/uL Hemoglobin 10.1 L 11.5-16.0 G/DL Hematocrit 30 L 35-52 % Mean Corpuscular Volume 91 80-99 FL Mean Corpuscular Hemoglobin 31 25-34 PG Mean Corpuscular Hemoglobin Concent 33 32-36 G/DL Red Cell Distribution Width 13.5 10.0-14.5 % Platelet Count 203 130-400 10^3/uL Mean Platelet Volume 10.6 H 7.4-10.4 FL Neutrophils (%) (Auto) 73 42-75 % Lymphocytes (%) (Auto) 16 12-44 % Monocytes (%) (Auto) 8 0-12 % Eosinophils (%) (Auto) 2 0-10 % Basophils (%) (Auto) 0 0-10 % Neutrophils # (Auto) 7.8 1.8-7.8 X 10^3 Lymphocytes # (Auto) 1.7 1.0-4.0 X 10^3 Monocytes # (Auto) 0.9 0.0-1.0 X 10^3 Eosinophils # (Auto) 0.3 0.0-0.3 10^3/uL Basophils # (Auto) 0.0 0.0-0.1 10^3/uL Sodium Level 129 L 135-145 MMOL/L Potassium Level 5.0 3.6-5.0 MMOL/L Chloride Level 94 L 98-107 MMOL/L Carbon Dioxide Level 26 21-32 MMOL/L Anion Gap 9 5-14 MMOL/L Blood Urea Nitrogen 45 H 7-18 MG/DL Creatinine 2.33 H 0.60-1.30 MG/DL Estimat Glomerular Filtration Rate 21 BUN/Creatinine Ratio 19 Glucose Level 93 70-105 MG/DL Calcium Level 8.6 8.5-10.1 MG/DL Magnesium Level 2.2 1.8-2.4 MG/DL Total Bilirubin 0.8 0.1-1.0 MG/DL Aspartate Amino Transf (AST/SGOT) 13 5-34 U/L Alanine Aminotransferase (ALT/SGPT) 13 0-55 U/L Alkaline Phosphatase 68 40-136 U/L C-Reactive Protein High Sensitivity 4.99 H 0.00-0.50 MG/DL Total Protein 5.6 L 6.4-8.2 GM/DL Albumin 3.2 3.2-4.5 GM/DL Urine Color YELLOW Urine Clarity SLIGHTLY CLOUDY Urine pH 5 5-9 Urine Specific [place] 1.015 L 1.016-1.022 Urine Protein NEGATIVE NEGATIVE Urine Glucose (UA) NEGATIVE NEGATIVE Urine Ketones NEGATIVE NEGATIVE Urine Nitrite POSITIVE H NEGATIVE Urine Bilirubin NEGATIVE NEGATIVE Urine Urobilinogen NORMAL NORMAL MG/DL Urine Leukocyte Esterase 3+ H NEGATIVE Urine RBC (Auto) 1+ H NEGATIVE Urine RBC 0-2 /HPF Urine WBC TNTC H /HPF Urine Squamous Epithelial Cells 5-10 /HPF Urine Renal Epithelial Cells 2-5 /HPF Urine Crystals NONE /LPF Urine Bacteria LARGE H /HPF Urine Casts NONE /LPF Urine Mucus NEGATIVE /LPF Urine Culture Indicated YES My Orders Orders - KERRY CARRILLO Cbc With Automated Diff (04/19/17 09:11) Comprehensive Metabolic Panel (04/19/17 09:11) Hs C Reactive Protein (04/19/17 09:11) Magnesium (04/19/17 09:11) Ua Culture If Indicated (04/19/17 09:11) Chest 1 View, Ap/Pa Only (04/19/17 09:11) Shoulder, Right, 3 Views (04/19/17 09:11) Hip, Left, 2 Views (04/19/17 09:11) Ct Head/Cervical Spine Wo (04/19/17 09:11) Saline Lock/Iv-Start (04/19/17 09:11) Lactated Ringers (Lr 1000 Ml Iv Solution (04/19/17 09:11) Oxycodone/Acet 10/325mg Tablet (Percocet (04/19/17 11:30) Shoulder, Left, 3 Views (04/19/17 11:25) Blood Culture (04/19/17 11:51) Urine Culture (04/19/17 11:48) Ciprofloxacin Iv 400mg/200ml (Cipro Iv S (04/19/17 12:30) Lactic Acid Analyzer (04/19/17 12:26) Medications Given in ED Current Medications Medications Dose Ordered Sig/Jaguar Route Start Time Stop Time Status Last Admin Dose Admin Lactated Ringer's 1,000 ml @ 0 mls/hr Q0M ONCE IV 04/19/17 09:11 04/19/17 09:13 DC 04/19/17 10:03 0 MLS/HR Oxycodone/ Acetaminophen 2 tab ONCE ONCE PO 04/19/17 11:30 04/19/17 11:31 DC 04/19/17 11:46 2 TAB Vital Signs/I&O Vital Sign - Last 12Hours 04/19/17 08:41 Temp 97.5 Pulse 69 Resp 14 B/P (MAP) 109/79 (89) Pulse Ox 97 O2 Delivery Nasal Cannula O2 Flow Rate 2.00 Progress Note #1: Time: 10:21 Progress Note Altered mental status after a fall. CT of her head and neck don't show any bleed. We'll look for infectious causes. Her hemoglobin is stable from 11 1 year ago. Differential includes persistent pneumonia versus UTI versus other. Plain film of her left hip since last for she's having pain. No bruising noted. Acute kidney injury was not seen a few weeks ago when she was in the hospital and is either from iatrogenic medications or infection etc. We'll give her some IV fluids cautiously as we correct this. Progress Note #2: Time: 11:26 Progress Note Upon discussing the imaging findings and the new finding of an LEIGHANN since last couple weeks with patient she says she's having a little more pain in her left shoulder that she was not having earlier. She's never had a pain like this before and was not having this pain after the fall. The pain is directly reproducible by pushing on the capsule of the glenohumeral joint. This most likely musculoskeletal there is no pain reproduced by pushing on the neck or lateral cervical spine. We'll going to give her her home dose of oxycodone which she typically takes every 6 hours but has not had for approximately 10 hours now while we get this x-ray of her left shoulder. We have given her a liter of fluids which are 900 cc in. No direct evidence for infection yet or stroke. We'll see what the urine shows. If the urine is clean and possible that she is just gotten too dry from her thiazide and loop diuretics as evidenced by the LEIGHANN and may need a day observation with some fluids and readjustment of her medications. Progress Note #3: Time: 12:16 Progress Note Urinalysis shows nitrite positive overt urinary tract infection. She has delirium and altered mental status and probably benefit from IV antibiotics inpatient on observation stay. Progress Note #4: Time: 12:32 Progress Note Vital signs still stable with recent blood pressure no fever. She meet severe sepsis criteria based on her acute kidney injury on top of urinary tract infection. She will be stable for the floor. She is resting comfortably with regular respirations nonlabored. She has regular pulse without chest pain. Capillary refill is less than 3 seconds. Diagnostic Imaging Diagonstic Imaging: CT Plain Films/CT/US/NM/MRI: c-spine, head Comments VIA [facility]. [place], [place] NAME: CHRISTOPHESHANNAN R [facility] REC#: [id number] PT STATUS: REG ER : 1945 PHYSICIAN: KERRY CARRILLO MD ADMIT DATE: 04/19/17/ER Draft Date of Exam:04/19/17 CT HEAD/CERVICAL SPINE WO CLINICAL INDICATION: Patient status post fall last night. Patient has altered mental status, weakness and lethargy. Exam: Head CT without IV contrast. Axial CT scan of the cervical spine with sagittal and coronal reformations. Comparison: Cervical spine x-ray dated 06/20/2010. Findings: Head CT: There is no evidence of acute cerebral infarct, intracranial hemorrhage, or gross mass effect. There is normal tomlisnon-white matter distinction. The brain parenchymal volume appears appropriate for patient's age. There is no significant midline shift or herniation. There is no evidence of hydrocephalus. The basal cisterns are unremarkable. The skull, extracranial soft tissue, and orbits are unremarkable. There is moderate to large amounts of mucosal thickening involving both maxillary sinuses. Temporal bone structures show no gross abnormality. Cervical spine: There is no acute cervical spine fracture. There is grade 1 anterolisthesis of C3 on C4 and C4 on C5 with no pars defect seen and is likely degenerative. There is multilevel cervical spine degenerative disease with vertebral body spurs and facet arthropathy. There is severe bilateral C5-C6 neural foramen narrowing. There is at least mild to moderate central canal narrowing seen at the C5-C6 level. There is atherosclerotic disease involving the bilateral cavernous carotid arteries. Otherwise, the visualized neck soft tissue structures and upper lung apices are unremarkable as visualized. Partially visualized central line catheter seen overlying the right neck extending to the right IJ region. Impression: 1: There is no evidence of acute intracranial process. There is no skull fracture. 2: There is no acute cervical spine fracture. 3: There is multilevel cervical spine degenerative disease including grade 1 anterolisthesis of C3 on C4 and C4 on C5. 4: Moderate to severe bilateral maxillary sinusitis. Dictated on workstation # [id number] Dict: 04/19/17 0953 Trans: 04/19/17 1011 [id number] Interpreted by: SANDRA ALVAREZ MD Electronically signed by: Reviewed: Reviewed by Me Diagonstic Imaging: Xray Plain Films/CT/US/NM/MRI: chest Comments [place]IA [place], [place] NAME: SHANNAN SAEED [facility] REC#: [id number] PT STATUS: REG ER : 1945 PHYSICIAN: KERRY CARRILLO MD ADMIT DATE: 04/19/17/ER Draft Date of Exam:04/19/17 HIP, LEFT, 2 VIEWS INDICATION: Fall and left hip pain. TIME OF EXAM: 10:18 AM FINDINGS: Two views of the left hip were obtained. The femoral acetabular alignment is normal. The hip joint space is well maintained. The femoral head and neck are intact without fracture or dislocation. The superior and inferior pubic rami are intact. IMPRESSION: No acute bony abnormality is detected. Dictated on workstation # [id number] Dict: 04/19/17 1009 Trans: 04/19/17 1019 TS [id number] Interpreted by: JENNIFER GATES MD Electronically signed by: Reviewed: Reviewed by Me Diagonstic Imaging: Xray Plain Films/CT/US/NM/MRI: other (right shoulder) Comments VIA [place], [place] NAME: SHANNAN SAEED [facility] REC#: [id number] PT STATUS: REG ER : 1945 PHYSICIAN: KERRY CARRILLO MD ADMIT DATE: 04/19/17/ER Draft Date of Exam:04/19/17 SHOULDER, RIGHT, 3 VIEWS PATIENT HISTORY: Right shoulder pain, unwitnessed fall last night. TECHNIQUE: Three views of the right shoulder. COMPARISON: None. FINDINGS: Postsurgical changes are seen in the right humeral head. There are advanced degenerative changes at the glenohumeral joint. No acute fracture or dislocation is seen. Enthesopathy is seen at the greater tuberosity and lateral acromion. Surgical clips are seen in the right axillary region overlying the right hemithorax. IMPRESSION: 1. Advanced degenerative changes of the right acromioclavicular joint with no acute osseous abnormality seen. Dictated on workstation # [id number] Dict: 04/19/17 1009 Trans: 04/19/17 1014 TS [id number] Interpreted by: NELSON TRUJILLO MD Electronically signed by: Reviewed: Reviewed by Me Diagonstic Imaging: Xray Plain Films/CT/US/NM/MRI: chest Comments VIA [facility]. [place], [place] NAME: SHANNAN SAEED [facility] REC#: [id number] PT STATUS: REG ER : 1945 PHYSICIAN: KERRY CARRILLO MD ADMIT DATE: 04/19/17/ER Draft Date of Exam:04/19/17 CHEST 1 VIEW, AP/PA ONLY INDICATION: Altered mental status and fall. Time of exam: 10:12 AM Comparison is made with prior chest radiograph from 04/01/2014. A right-sided line has its tip in the upper portion of the right atrium. The heart is enlarged but stable. There are multiple surgical clips in the right axilla. The lungs are clear of acute infiltrates. No failure is seen. There is some minimal linear scarring in the left mid to lower lung field. No effusion or pneumothorax is identified. Extensive spinal instrumentation is identified in the lower thoracic and upper lumbar spine. IMPRESSION: Stable cardiomegaly. No acute cardiopulmonary process is detected. Dictated on workstation # [id number] Dict: 04/19/17 1008 Trans: 04/19/17 1013 ELIEL [id number] Interpreted by: JENNIFER GATES MD Electronically signed by: Reviewed: Reviewed by Me Departure Communication (Admissions) Time/Spoke to Admitting Phy: 12:[address] Dill; Discussed lab imaging findings and stable vital signs and she is okay for the patient go the floor. Lactate is still pending. She is okay with antibiotics ciprofloxacin. Impression Impression: Primary Impression: UTI (urinary tract infection) Qualified Codes: N30.01 - Acute cystitis with hematuria Additional Impressions: LEIGHANN (acute kidney injury) Hyponatremia Altered mental status Qualified Codes: R41.0 - Disorientation, unspecified Fall Qualified Codes: W19.XXXA - Unspecified fall, initial encounter Left hip pain Severe sepsis Disposition: ADMITTED INPATIENT Condition: Stable Admissions Decision to Admit Reason: Admit from ER (General) Decision to Admit/Date: Apr 19, 2017 Time/Decision to Admit Time: 12:17 Departure-Patient Inst. Referrals: SIENNA MADERA DO (PCP/Family) Primary Care Physician Copy Copies To 1: SIENNA MADERA TITUS J Apr 19, 2017 09:18
[2017-04-19 09:42] LABS: BASOPHILS % (AUTO) 0 % (0-10); EOSINOPHILS # (AUTO) 0.3 10^3/uL (0.0-0.3); EOSINOPHILS % (AUTO) 2 % (0-10); HEMATOCRIT 30 % (35-52); HEMOGLOBIN 10.1 G/DL (11.5-16.0); LYMPHOCYTES # (AUTO) 1.7 X 10^3 (1.0-4.0); LYMPHOCYTES % (AUTO) 16 % (12-44); MEAN CORPUSCULAR HEMOGLOBIN 31 PG (25-34); MEAN CORPUSCULAR HGB CONC 33 G/DL (32-36); MEAN CORPUSCULAR VOLUME 91 FL (80-99); MEAN PLATELET VOLUME 10.6 FL (7.4-10.4); MONOCYTES # (AUTO) 0.9 X 10^3 (0.0-1.0); MONOCYTES % (AUTO) 8 % (0-12); NEUTROPHILS # (AUTO) 7.8 X 10^3 (1.8-7.8); NEUTROPHILS % (AUTO) 73 % (42-75); PLATELET COUNT 203 10^3/uL (130-400); RED BLOOD COUNT 3.31 10^6/uL (4.35-5.85); RED CELL DISTRIBUTION WIDTH 13.5 % (10.0-14.5); WHITE BLOOD COUNT 10.6 10^3/uL (4.3-11.0)
[2017-04-19 10:00] LABS: ALBUMIN 3.2 GM/DL (3.2-4.5); BILIRUBIN,TOTAL 0.8 MG/DL (0.1-1.0); CALCIUM 8.6 MG/DL (8.5-10.1); CREATININE SERUM 2.33 MG/DL (0.60-1.30); MAGNESIUM 2.2 MG/DL (1.8-2.4); TOTAL PROTEIN 5.6 GM/DL (6.4-8.2)
--- NOTE | 2017-04-19 10:12 | Diagnostic Imaging Report ---
CLINICAL INDICATION: Patient status post fall last night. Patient has altered mental status, weakness and lethargy. Exam: Head CT without IV contrast. Axial CT scan of the cervical spine with sagittal and coronal reformations. Comparison: Cervical spine x-ray dated 06/20/2010. Findings: Head CT: There is no evidence of acute cerebral infarct, intracranial hemorrhage, or gross mass effect. There is normal tomlinson-white matter distinction. The brain parenchymal volume appears appropriate for patient's age. There is no significant midline shift or herniation. There is no evidence of hydrocephalus. The basal cisterns are unremarkable. The skull, extracranial soft tissue, and orbits are unremarkable. There is moderate to large amounts of mucosal thickening involving both maxillary sinuses. Temporal bone structures show no gross abnormality. Cervical spine: There is no acute cervical spine fracture. There is grade 1 anterolisthesis of C3 on C4 and C4 on C5 with no pars defect seen and is likely degenerative. There is multilevel cervical spine degenerative disease with vertebral body spurs and facet arthropathy. There is severe bilateral C5-C6 neural foramen narrowing. There is at least mild to moderate central canal narrowing seen at the C5-C6 level. There is atherosclerotic disease involving the bilateral cavernous carotid arteries. Otherwise, the visualized neck soft tissue structures and upper lung apices are unremarkable as visualized. Partially visualized central line catheter seen overlying the right neck extending to the right IJ region. Impression: 1: There is no evidence of acute intracranial process. There is no skull fracture. 2: There is no acute cervical spine fracture. 3: There is multilevel cervical spine degenerative disease including grade 1 anterolisthesis of C3 on C4 and C4 on C5. 4: Moderate to severe bilateral maxillary sinusitis. Dictated by: Dictated on workstation # [id number]
--- NOTE | 2017-04-19 10:13 | Diagnostic Imaging Report ---
INDICATION: Fall and left hip pain. TIME OF EXAM: 10:18 AM FINDINGS: Two views of the left hip were obtained. The femoral acetabular alignment is normal. The hip joint space is well maintained. The femoral head and neck are intact without fracture or dislocation. The superior and inferior pubic rami are intact. IMPRESSION: No acute bony abnormality is detected. Dictated by: Dictated on workstation # [id number]
--- NOTE | 2017-04-19 10:14 | Diagnostic Imaging Report ---
INDICATION: Altered mental status and fall. Time of exam: 10:12 AM Comparison is made with prior chest radiograph from 04/01/2014. A right-sided line has its tip in the upper portion of the right atrium. The heart is enlarged but stable. There are multiple surgical clips in the right axilla. The lungs are clear of acute infiltrates. No failure is seen. There is some minimal linear scarring in the left mid to lower lung field. No effusion or pneumothorax is identified. Extensive spinal instrumentation is identified in the lower thoracic and upper lumbar spine. IMPRESSION: Stable cardiomegaly. No acute cardiopulmonary process is detected. Dictated by: Dictated on workstation # [id number]
--- NOTE | 2017-04-19 10:15 | Diagnostic Imaging Report ---
PATIENT HISTORY: Right shoulder pain, unwitnessed fall last night. TECHNIQUE: Three views of the right shoulder. COMPARISON: None. FINDINGS: Postsurgical changes are seen in the right humeral head. There are advanced degenerative changes at the glenohumeral joint. No acute fracture or dislocation is seen. Enthesopathy is seen at the greater tuberosity and lateral acromion. Surgical clips are seen in the right axillary region overlying the right hemithorax. IMPRESSION: 1. Advanced degenerative changes of the right acromioclavicular joint with no acute osseous abnormality seen. Dictated by: Dictated on workstation # [id number]
[2017-04-19] MEDS ORDERED: oxyCODONE/APAP 10/325MG (PERCOCET 10) TABLET PO ONE (11:30)
[2017-04-19 12:03] LABS: BILIRUBIN,URINE NEGATIVE (NEGATIVE); CLARITY,URINE SLIGHTLY CLOUDY; COLOR,URINE YELLOW; GLUCOSE, URINE (UA) NEGATIVE (NEGATIVE); KETONES,URINE NEGATIVE (NEGATIVE); LEUKOCYTE ESTERASE ,URINE 3+ (NEGATIVE); NITRITE,URINE POSITIVE (NEGATIVE); PH,URINE 5 (5-9); PROTEIN,URINE NEGATIVE (NEGATIVE); UROBILINOGEN,URINE NORMAL (NORMAL)
[2017-04-19 12:10] LABS: BACTERIA,URINE LARGE /HPF; RBC,URINE 0-2 /HPF; WBC,URINE TNTC /HPF
--- NOTE | 2017-04-19 12:26 | Diagnostic Imaging Report ---
INDICATION: Left shoulder pain. Time of exam 12:12 PM 3 views of the left shoulder demonstrate normal glenohumeral and acromion clavicular alignment. Acromion humeral space is normal. No fracture or dislocation is seen. IMPRESSION: No acute bony abnormality is detected. Dictated by: Dictated on workstation # [id number]
[2017-04-19] MEDS ORDERED: CIPROFLOXACIN IV 400MG/200ML 200 ML IV ONE (12:30)
--- NOTE | 2017-04-19 13:20 | History & Physical-Hospitalist ---
HPI History of Present Illness: HPI/Chief Complaint Pt is a 71yoCF with a PMH of COPD with chronic oxygen dependence known to me from recent admission. She was sent to the ER from her care facility this morning for confusion after a fall. She fell yesterday and felt okay afterwards but this morning seemed confused and complained of muscle weakness and stiffness so she was sent by the staff to the ER for evaluation. She reports feeling stiff still after her fall but otherwise no MSK complaints. She does complain of some dysuria and increased frequency. She has a history of ESBL bacteruria. She denies any cough, wheezing, CP. She is slightly confused from her baseline though so HPI is somewhat limited. Source: patient Exam Limitations: clinical condition Date Seen 04/19/17 Time Seen by Provider: 13:15 Attending Physician Dawit Dill MD PCP Clare Parada DO Referring Physician Date of Admission Apr 19, 2017 at 12:30 Home Medications & Allergies Home Medications Reviewed patient Home Medication Reconciliation Form Allergies Allergies Coded Allergies NSAIDS (Non-Steroidal Anti-Inflamma (Unverified Allergy, Mild, 03/18/09) Penicillins (Verified Allergy, Unknown, 01/03/06) Sulfa (Sulfonamide Antibiotics) (Verified Allergy, Unknown, 01/03/06) aspirin (Verified Allergy, Unknown, 01/03/06) carbamazepine (Verified Allergy, Unknown, 09/20/06) cephalexin (Verified Allergy, Unknown, 01/03/06) iodine (Verified Allergy, Unknown, 01/03/06) latex (Unverified Allergy, Unknown, 06/21/13) Past [id number] Hx Patient Social History Employed/Student: unemployed Alcohol Use: Denies Use Recreational Drug Use: No Smoking Status: Former Smoker Former Smoker, Quit: Mar 25, 1994 Type Used: Cigarettes 2nd Hand Smoke Exposure: No Recent Foreign Travel: No Contact w/other who traveled: No Recent Hopitalizations: Yes (PNEUMONIA 04/01/17) Recent Infectious Disease Expo: No Immunizations Up To Date Tetanus Booster (TDap): Unknown Pediatric: No Date of Pneumonia Vaccine: Feb 24, 2011 Seasonal Allergies Seasonal Allergies: No Surgeries Yes (MULT KNEE, BACK FUSION, NASAL SURGERY, ROTATOR CUFF REPAIR, RT BREAST L) Adenoidectomy, Appendectomy, Hysterectomy, Lumpectomy, Orthopedic, Tonsillectomy , Tubal Ligation Respiratory Yes COPD, Pneumonia, Sleep Apnea Currently Using CPAP: Yes Cardiovascular Yes (CHF) Chronic Edema/Swelling, High Cholesterol, Hypertension Neurological Yes Neuropathy Reproductive System Hx Reproductive Disorders: No Sexually Transmitted Disease: No HIV/AIDS: No Female Reproductive Disorders: Denies Genitourinary Yes (chronic kidney dz) Renal Failure Gastrointestinal Yes Gastroesophageal Reflux, Gall Bladder Disease Musculoskeletal Yes (KNEE SURGERIES, BACK SURGERY) Degenerate Disk Disease, Arthritis, Rheumatoid Arthritis, Chronic Back Pain Endocrine History of Endocrine Disorders: No HEENT Loss of Vision: Bilateral Hearing Impairment: Denies Cancer Yes Breast Psychosocial History of Psychiatric Problem: Yes Behavioral Health Disorders: Anxiety, Depression Integumentary History of Skin or Integumenta: No Blood Transfusions History of Blood Disorders: Yes (IMMUNOGLOBULIN DEFICIENCY) Adverse Reaction to a Blood Tr: No Family Medical History Significant Family History: No Pertinent Family Hx Family Hx: Cancer G8 SISTER Congestive heart failure 19 FATHER Family history: Cardiovascular disease 19 FATHER 19 MOTHER G8 BROTHER Family history: Coronary thrombosis 19 FATHER 19 MOTHER Family history: Hypertension 19 MOTHER Stroke 19 MOTHER G8 BROTHER Review of Systems Constitutional: No chills, No fever, No weakness EENTM: No blurred vision, No double vision, No nose congestion, No throat pain Respiratory: No cough, No dyspnea on exertion, No short of breath Cardiovascular: No chest pain, No edema, No palpitations Gastrointestinal: No abdominal pain, No constipation, No diarrhea, No nausea, No vomiting Genitourinary: No decreased output, dysuria, frequency, No hematuria, No incontinence Musculoskeletal: No joint pain, No muscle pain, No muscle weakness Skin: No lesions, No rash Psychiatric/Neurological: Denies Headache, Denies Numbness, Denies Tingling Physical Exam Physical Exam Vital Signs Vital Signs - First Documented 04/19/17 08:41 Temp 97.5 Pulse 69 Resp 14 B/P (MAP) 109/79 (89) Pulse Ox 97 O2 Delivery Nasal Cannula O2 Flow Rate 2.00 Capillary Refill : Less Than 3 Seconds General Appearance: No Apparent Distress, Chronically ill, Obese HEENT: PERRL/EOMI, Moist Mucous Membranes Neck: Non Tender, Supple Respiratory: Lungs Clear, No Respiratory Distress Cardiovascular: Regular Rate, Rhythm, No Murmur Gastrointestinal: Normal Bowel Sounds, Non Tender, Soft Extremity: Normal Capillary Refill, No Calf Tenderness Neurologic/Psychiatric: Alert, Oriented x3 (oriented x4 but confused with minor details), No Motor/Sensory Deficits, Normal Mood/Affect Skin: Normal Color, Warm/Dry Results Results/Procedures Lab Laboratory Tests 04/19/17 09:10 04/20/17 06:48 Radiology Date of Exam:04/19/17 CT HEAD/CERVICAL SPINE WO CLINICAL INDICATION: Patient status post fall last night. Patient has altered mental status, weakness and lethargy. Exam: Head CT without IV contrast. Axial CT scan of the cervical spine with sagittal and coronal reformations. Comparison: Cervical spine x-ray dated 06/20/2010. Findings: Head CT: There is no evidence of acute cerebral infarct, intracranial hemorrhage, or gross mass effect. There is normal tomlinson-white matter distinction. The brain parenchymal volume appears appropriate for patient's age. There is no significant midline shift or herniation. There is no evidence of hydrocephalus. The basal cisterns are unremarkable. The skull, extracranial soft tissue, and orbits are unremarkable. There is moderate to large amounts of mucosal thickening involving both maxillary sinuses. Temporal bone structures show no gross abnormality. Cervical spine: There is no acute cervical spine fracture. There is grade 1 anterolisthesis of C3 on C4 and C4 on C5 with no pars defect seen and is likely degenerative. There is multilevel cervical spine degenerative disease with vertebral body spurs and facet arthropathy. There is severe bilateral C5-C6 neural foramen narrowing. There is at least mild to moderate central canal narrowing seen at the C5-C6 level. There is atherosclerotic disease involving the bilateral cavernous carotid arteries. Otherwise, the visualized neck soft tissue structures and upper lung apices are unremarkable as visualized. Partially visualized central line catheter seen overlying the right neck extending to the right IJ region. Impression: 1: There is no evidence of acute intracranial process. There is no skull fracture. 2: There is no acute cervical spine fracture. 3: There is multilevel cervical spine degenerative disease including grade 1 anterolisthesis of C3 on C4 and C4 on C5. 4: Moderate to severe bilateral maxillary sinusitis. Assessment/Plan Admission Diagnosis Severe Sepsis duet to UTI Admission Status: Inpatient Order (span 2 midnights) Reason for Inpatient Admission: Severe sepsis necessitating IV abx, multiple antibiotic allergies Diagnosis/Problems Diagnosis/Problems (1) Severe sepsis Status: Acute Assessment & Plan: Apparent UTI on UA with LEIGHANN Has altered mental status as well and qualifies for SOFA criteria Not hypotensive so does not need 30cc/kg bolus Lactic acid pending Urine and blood cultures obtained in ER Started on Cipro in ER but upon reviewing cultures will switch to Merrem give previous sensitivities (2) UTI (urinary tract infection) Status: Acute Assessment & Plan: Per UA Await cultures Abx as above Qualifiers: Qualified Codes: N30.00 - Acute cystitis without hematuria (3) LEIGHANN (acute kidney injury) Assessment & Plan: Continue IVF EF 50% on echo last fall Monitor I/Os and respiratory status (4) Altered mental status Status: Acute Assessment & Plan: Likely due to sepsis CT head obtained and negative Qualifiers: Qualified Codes: R41.0 - Disorientation, unspecified (5) Fall Status: Acute Assessment & Plan: XR show no acute abnormalities PT/OT Qualifiers: Qualified Codes: W19.XXXA - Unspecified fall, initial encounter (6) Essential (primary) hypertension Assessment & Plan: Low normotensive currently Will hold home meds (7) Prophylactic measure Assessment & Plan: Lovenox NS Cardiac Diet DAWIT DILL MD Apr 19, 2017 13:20
[2017-04-19] MEDS ORDERED: NOREPINEPHRINE 4 MG in NS (IVPB) 250 ML IV SCH (13:33)
[2017-04-19] MEDS ORDERED: NS IV 1000 ML 1,000 ML IV SCH (13:33)
[2017-04-19] MEDS ORDERED: NS IV PRN (13:45)
[2017-04-19] MEDS ORDERED: ACETAMINOPHEN 500 MG TAB (TYLENOL) PO PRN (13:45)
[2017-04-19] MEDS ORDERED: ONDANSETRON 4 MG/2 ML (SDV) Z0FRAN IV PRN (13:45)
[2017-04-19] MEDS ORDERED: MEROPENEM 1,000 MG in NS (IVPB) 100 ML IV SCH (14:00)
[2017-04-19] MEDS: NS W/KCL 20 MEQ/L 1,000 ML IV SCH ×3 (14:06→23:58)
[2017-04-19] MEDS ORDERED: CATHETER FLUSH 10 ML SYR IV PRN (14:15)
[2017-04-19] MEDS: MEROPENEM 500 MG in NS (IVPB) 100 ML IV SCH ×2 (15:15→22:49)
[2017-04-19] MEDS: inSUlin ASPART (NovoLOG) 1 UNIT/0.01 ML (CHARGE PER UNIT) SC SCH ×2 (16:00→20:38)
[2017-04-19 16:24] VITALS: BP 129/61
[2017-04-19 20:38] VITALS: BP 125/57
[2017-04-20] VITALS (8 sets, daily range): BP systolic 111–159; BP diastolic 52–84
[2017-04-20] MEDS: NS W/KCL 20 MEQ/L 1,000 ML IV SCH (04:56)
[2017-04-20] MEDS: inSUlin ASPART (NovoLOG) 1 UNIT/0.01 ML (CHARGE PER UNIT) SC SCH ×4 (06:47→21:10)
[2017-04-20] MEDS: MEROPENEM 500 MG in NS (IVPB) 100 ML IV SCH ×3 (06:59→21:19)
[2017-04-20 07:00] LABS: BASOPHILS % (AUTO) 0 % (0-10); EOSINOPHILS # (AUTO) 0.3 10^3/uL (0.0-0.3); EOSINOPHILS % (AUTO) 4 % (0-10); HEMATOCRIT 32 % (35-52); HEMOGLOBIN 10.5 G/DL (11.5-16.0); LYMPHOCYTES # (AUTO) 1.3 X 10^3 (1.0-4.0); LYMPHOCYTES % (AUTO) 16 % (12-44); MEAN CORPUSCULAR HEMOGLOBIN 30 PG (25-34); MEAN CORPUSCULAR HGB CONC 33 G/DL (32-36); MEAN CORPUSCULAR VOLUME 91 FL (80-99); MEAN PLATELET VOLUME 10.3 FL (7.4-10.4); MONOCYTES # (AUTO) 0.6 X 10^3 (0.0-1.0); MONOCYTES % (AUTO) 7 % (0-12); NEUTROPHILS % (AUTO) 73 % (42-75); PLATELET COUNT 197 10^3/uL (130-400); RED BLOOD COUNT 3.46 10^6/uL (4.35-5.85); RED CELL DISTRIBUTION WIDTH 13.5 % (10.0-14.5); WHITE BLOOD COUNT 8.2 10^3/uL (4.3-11.0)
[2017-04-20 07:22] LABS: CALCIUM 8.5 MG/DL (8.5-10.1); CREATININE SERUM 1.48 MG/DL (0.60-1.30)
--- NOTE | 2017-04-20 08:59 | Progress Note-Hospitalist ---
Progress Note HPI/CC on Admission Pt is a 71yoCF with a PMH of COPD with chronic oxygen dependence known to me from recent admission. She was sent to the ER from her care facility this morning for confusion after a fall. She fell yesterday and felt okay afterwards but this morning seemed confused so she was sent by the staff to the ER for evaluation. She reports feeling stiff after her fall but otherwise no MSK complaints. She does complain of some dysuria and increased frequency. She has a history of ESBL bacteruria. She denies any cough, wheezing, CP. Progress Notes/Assess & Plan Date Seen 04/20/17 Time Seen by Provider: 08:40 Diagonsis/Assessment & Plan Patient doing much better but appears to be weekend and more debilitated Urine culture reviewed revealing Escherichia coli and gram-positive john placed on meropenem considering her sensitivity profile before Renal insufficiency renal failure much improved at 1.48 and that is about her baseline Will stop IV fluid Reconcile all home meds and restarted most except for diuretics Patient will get up with physical therapy today Needs nebulizer treatment so I ordered those Denies any pain issues No fever, vital signs stable, debilitated, chronically ill, pale Regular rate and rhythm, clear to auscultation bilaterally but upper airway congestion noted No edema noted with chronic nonpitting type due to chronic lymphedema Laboratory Tests 04/19/17 09:10 04/20/17 06:48 Assessment: Altered mental status with encephalopathy due to hyponatremia, acute renal failure, UTI with likelihood of ESBL due to history and sensitivity profiles Severe sleep apnea semi-compliant with CPAP Diastolic dysfunction Chronic lymphedema Chronic anemia of chronic illness Morbid obesity Hypertension Restless leg syndrome 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
[2017-04-20] MEDS ORDERED: guaiFENesin/DM (ROBITUSSIN DM) 10 ML UDC PO PRN (09:00)
[2017-04-20] MEDS ORDERED: RT-ALBUTEROL/IPRATROPIUM 3 ML (DUONEB) VIAL IH PRN (09:00)
[2017-04-20] MEDS ORDERED: FLUTICASONE NASAL SPRAY (FLONASE) 16 GM BTL NS PRN (09:00)
[2017-04-20] MEDS ORDERED: MENTHOL/ZINC OXIDE (CALMOSEPTINE) 113 GM TUBE TP PRN (09:00)
[2017-04-20] MEDS: CLOPIDOGREL 75 MG (PLAVIX) TABLET PO SCH (10:38)
[2017-04-20] MEDS: A & D OINT 60 GM TUBE TP SCH ×2 (10:38→21:20)
[2017-04-20] MEDS: DULoxetine 30 MG (CYMBALTA) CAP PO SCH (10:38)
[2017-04-20] MEDS: CARVEDILOL 12.5 MG (COREG) TABLET PO SCH ×2 (10:38→21:20)
[2017-04-20] MEDS: HYDROXYCHLOROQUINE 200 MG (PLAQUENIL) TAB PO SCH ×2 (11:30→17:57)
[2017-04-20] MEDS: KCL 20 MEQ TAB (K-DUR) PO SCH ×2 (11:30→17:57)
--- NOTE | 2017-04-20 11:44 | Physical Therapy Evaluation ---
PT Evaluation-General Medical Diagnosis Admission Date Apr 19, 2017 at 12:30 Medical Diagnosis: AMS/UTI Onset Date: Apr 19, 2017 Therapy Diagnosis Therapy Diagnosis: debility Height/Weight Height (Feet): 5 Height (Inches): 4.00 Weight (Pounds): 263 Weight (Ounces): 0.0 Precautions Precautions/Isolations: Fall Prevention, Standard Precautions Weight Bear Status Right Lower Extremity: Right Full Weight Bearing Left Lower Extremity: Left Full Weight Bearing Referral Physician: Karma Reason for Referral: Evaluation/Treatment Medical History Pertinent Medical History: Arthritis, CAD, COPD, GERD, HTN, Neuropathy, Rheumatoid Arthritis Additional Medical History morbid obesity Current History EMS secondary to AMS and fall at [facility] Reviewed History: Yes Social History Home: Assisted Living Prior/Core FIM Prior Level of Function Functional Saunders Measure 0=Not Assessed/NA 4=Minimal Assistance 1=Total Assistance 5=Supervision or Setup 2=Maximal Assistance 6=Modified Saunders 3=Moderate Assistance 7=Complete Saunders Bed Mobility: 6 Transfers (B,C,W/C) (FIM): 6 Gait: 6 PT Evaluation-Current Subjective Patient agrees to PT. Pain Numeric Pain Scale: 5-Moderate Pain Location: Right Location Body Site: Shoulder Pain Description: Ache Objective Patient Orientation: Normal For Age Problem Solving: Good Attachments: Oxygen, IV ROM/Strength ROM Lower Extremities bilateral LE WNL Strength Lower Extremities right knee flexion/extension 4/5; hip flexion 4/5; DF/PF 4/5; Abd/add 4/5 left knee flexion/extension 4/5; hip flexion 4/5; DF/PF 4/5; Abd/add 4/5 Integumentary/Posture Integumentary refer to nursing notes Bladder Incontinence: No Posture trunk flexed posture with ambulation Neuromuscular (Tone, Coordination, Reflexes) grossly intact Sensory Vision: Wears Glasses Hearing: Functional Sensation Right Lower Extremit: Impaired Sensation Left Lower Extremity: Impaired Transfers Functional Saunders Measure 0=Not Assessed/NA 4=Minimal Assistance 1=Total Assistance 5=Supervision or Setup 2=Maximal Assistance 6=Modified Saunders 3=Moderate Assistance 7=Complete Saunders Transfers (B, C, W/C) (FIM): 5 Scootin Sit to/from Stand: 5 Gait Mode of Locomotion: Walk Anticipated Mode of Locomotion: Walk Gait (FIM): 2 Distance (FIM): 5=234-28 ft Distance: 100' Gait Level of Assist: 5 Gait Assistive Device: FWW Comments/Gait Description patient leans on FWW on forearms/functional gait sequence Balance Sitting Static: Normal Sitting Dynamic: Normal Standing Static: Normal Standing Dynamic: Normal Assessment/Needs 71 y.o. female, will benefit from short term skilled PT to address functional mobility to improve current LOF and to safely return to [facility] at maximum LOF. Rehab Potential: Good PT Care Home Goals Care Home Goals PT Surgery Nurse Goals Time Frame: Apr 30, 2017 Transfers (B,C,W/C) (FIM): 6 Gait (FIM): 6 Gait distance (FIM): 3=150 ft Gait Level of Assist: 6 Gait Assistive Device: FWW PT Plan Problem List Problem List: Activity Tolerance Treatment/Plan Treatment Plan: Continue Plan of Care Treatment Plan: Education, Functional Activity Lakeshia, Functional Strength, Gait , Safety, Therapeutic Exercise Treatment Duration: Apr 30, 2017 Frequency: 6 times per week Estimated Hrs Per Day: .25 hour per day Patient and/or Family Agrees t: Yes Time/GCodes Time In: 1011 Time Out: 1034 Total Billed Treatment Time: 23 Total Billed Treatment 1 visit EVMod 23 min GARO NICK PT Apr 20, 2017 11:44
[2017-04-20] MEDS ORDERED: CIPROFLOXACIN 400 MG/D5W 200 ML (PRE-MIX) IV SCH (12:00)
[2017-04-20] MEDS: RT-ALBUTEROL/IPRATROPIUM 3 ML (DUONEB) VIAL INH SCH ×4 (12:56→22:22)
[2017-04-20] MEDS: RT-ADVAIR HFA 115/21 MCG PER PUFF IH SCH (19:44)
[2017-04-20] MEDS: GABAPENTIN 300 MG (NEURONTIN) CAP PO SCH (21:19)
[2017-04-20] MEDS: PANTOPRAZOLE 40 MG (PROTONIX) TAB PO SCH (21:20)
[2017-04-21] VITALS: BP 126/58
[2017-04-21] MEDS: RT-ALBUTEROL/IPRATROPIUM 3 ML (DUONEB) VIAL INH SCH ×6 (02:18→22:03)
[2017-04-21 04:00] VITALS: BP 167/77
[2017-04-21 06:19] LABS: BASOPHILS % (AUTO) 0 % (0-10); EOSINOPHILS # (AUTO) 0.3 10^3/uL (0.0-0.3); EOSINOPHILS % (AUTO) 4 % (0-10); HEMATOCRIT 29 % (35-52); HEMOGLOBIN 9.8 G/DL (11.5-16.0); LYMPHOCYTES # (AUTO) 1.6 X 10^3 (1.0-4.0); LYMPHOCYTES % (AUTO) 22 % (12-44); MEAN CORPUSCULAR HEMOGLOBIN 31 PG (25-34); MEAN CORPUSCULAR HGB CONC 34 G/DL (32-36); MEAN CORPUSCULAR VOLUME 92 FL (80-99); MEAN PLATELET VOLUME 9.9 FL (7.4-10.4); MONOCYTES # (AUTO) 0.6 X 10^3 (0.0-1.0); MONOCYTES % (AUTO) 9 % (0-12); NEUTROPHILS # (AUTO) 4.8 X 10^3 (1.8-7.8); NEUTROPHILS % (AUTO) 65 % (42-75); PLATELET COUNT 186 10^3/uL (130-400); RED BLOOD COUNT 3.18 10^6/uL (4.35-5.85); RED CELL DISTRIBUTION WIDTH 13.4 % (10.0-14.5); WHITE BLOOD COUNT 7.3 10^3/uL (4.3-11.0)
[2017-04-21 06:38] LABS: ALANINE AMINOTRANSFERASE 10 U/L (0-55); ALBUMIN 2.9 GM/DL (3.2-4.5); ALKALINE PHOSPHATASE 57 U/L (40-136); BILIRUBIN,TOTAL 0.6 MG/DL (0.1-1.0); BUN/CREATININE RATIO 25; CALCIUM 8.5 MG/DL (8.5-10.1); CARBON DIOXIDE 27 MMOL/L (21-32); CHLORIDE 103 MMOL/L (98-107); CREATININE SERUM 0.87 MG/DL (0.60-1.30); GFR ESTIMATED > 60; GLUCOSE 89 MG/DL (70-105); POTASSIUM 3.4 MMOL/L (3.6-5.0); SODIUM 140 MMOL/L (135-145); TOTAL PROTEIN 5.1 GM/DL (6.4-8.2)
[2017-04-21] MEDS: inSUlin ASPART (NovoLOG) 1 UNIT/0.01 ML (CHARGE PER UNIT) SC SCH ×3 (06:38→17:37)
[2017-04-21] MEDS: MEROPENEM 500 MG in NS (IVPB) 100 ML IV SCH ×3 (06:41→19:30)
[2017-04-21 08:00] VITALS: BP 151/72
[2017-04-21] MEDS: LORATADINE (CLARITIN) 10 MG TAB PO SCH (08:57)
[2017-04-21] MEDS: DULoxetine 30 MG (CYMBALTA) CAP PO SCH (08:57)
[2017-04-21] MEDS: CARVEDILOL 12.5 MG (COREG) TABLET PO SCH ×2 (08:57→21:15)
[2017-04-21] MEDS: CLOPIDOGREL 75 MG (PLAVIX) TABLET PO SCH (08:57)
[2017-04-21] MEDS: A & D OINT 60 GM TUBE TP SCH ×2 (08:57→21:15)
--- NOTE | 2017-04-21 11:16 | Progress Note-Hospitalist ---
Progress Note HPI/CC on Admission Pt is a 71yoCF with a PMH of COPD with chronic oxygen dependence known to me from recent admission. She was sent to the ER from her care facility this morning for confusion after a fall. She fell yesterday and felt okay afterwards but this morning seemed confused and complained of muscle weakness and stiffness so she was sent by the staff to the ER for evaluation. She reports feeling stiff still after her fall but otherwise no MSK complaints. She does complain of some dysuria and increased frequency. She has a history of ESBL bacteruria. She denies any cough, wheezing, CP. She is slightly confused from her baseline though so HPI is somewhat limited. Progress Notes/Assess & Plan Date Seen 04/21/17 Time Seen by Provider: 09:15 Diagonsis/Assessment & Plan Chart Review: No fever Vitals stable BP elevated 151/72 WBC 7.3 Hgb 9.8 K+ 3.4 Creat 0.87 Final urine cx shows E. coli, staph, and enterococcus. Pt on Meropenem Pharmacy Review: ESBL, staph; Meropenem still okay. Pt is on day 3, will need a minimum of 5 days needed. If pt has a port, can do out-pt Ertapenem if needed. Pt Interview: Pt was informed that I will restart her diuretics today Pt states she is breathing well Pt confirms working with PT today, but has not been up yet Physical exam stable. Pt confirms receiving breathing treatments Pt confirms BM yesterday. Pt denies having catheter Abx discussed for bladder infection Pt was encouraged to ambulate Pt states she was frustrated with her RN last night, pt felt she was inattentive and did not give her pain meds when needed. I informed the pt that I may have put a restriction on this and will check into it No fever, vital signs stable, debilitated, chronically ill, pale Regular rate and rhythm, clear to auscultation bilaterally but upper airway congestion noted No edema noted with chronic nonpitting type due to chronic lymphedema Laboratory Tests 04/21/17 06:10 Assessment: Altered mental status with encephalopathy due to hyponatremia, acute renal failure, UTI with ESBL Severe sleep apnea semi-compliant with CPAP Diastolic dysfunction Chronic lymphedema Chronic anemia of chronic illness Morbid obesity Hypertension Restless leg syndrome 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 Clare Parada. CLARE PARADA DO Apr 21, 2017 11:15
[2017-04-21] MEDS: RT-ADVAIR HFA 115/21 MCG PER PUFF IH SCH (11:31)
[2017-04-21] MEDS ORDERED: METOLAZONE 5 MG (ZAROXOLYN) TAB PO SCH (11:45)
[2017-04-21 12:00] VITALS: BP 117/65
--- NOTE | 2017-04-21 12:07 | Physical Therapy Daily Note ---
PT Daily Note-Current Subjective Pt is R sidelying upon arrival. Pt agrees to PT. Pain Numeric Pain Scale: 7 Location: Right, Left Location Body Site: Shoulder Pain Description: Ache Comment: Pt reports pain in B shoulders when walking. Mental Status Patient Orientation: Person, Place, Time, Situation Attachments: Oxygen (2L) Transfers Functional Tabor Measure 0=Not Assessed/NA 4=Minimal Assistance 1=Total Assistance 5=Supervision or Setup 2=Maximal Assistance 6=Modified [place] 3=Moderate Assistance 7=Complete IndependenceIRFPAI Quality Coding Scale 6 Independent with activity with or without an assistive device 5 Patient requires set up or clean up by helper. Patient completes activity by themselves 4 Supervision or touching assist (CGA). Armour provide cues , steadying assist 3 The helper provides less than half the effort to complete the activity 2 The helper provides more than half the effort to complete the activity 1 Dependent. The helper does all the effort to complete an activity 7 Patient refused to complete or attempt activity 9 The patient did not perform the activity before the current illness or injury 88 Not attempted due to Medical conditions or safety concerns Scootin Rollin Supine to/from Sit: 5 Sit to/from Stand: 4 Weight Bearing Right Lower Extremity: Right Full Weight Bearing Left Lower Extremity: Left Full Weight Bearing Gait Training Distance (FIM): 3=150 ft Distance: 200' Gait Level of Assist: 5 Gait Persons Needed: 1 Gait Assistive Device: FWW Pt walks hunched over FWW due to reported pain in shoulders which eases with less WBing. Pt has slow rosanne and fatigues easy but no LOB. Treatments Pt completes 5 sit to stands in preparation for ambulation. Pt transfers sit to stand using FWW at [facility]. Pt ambulates in hallway using FWW at close SBA. Pt has a couple of standing rest breaks then returns to room to rest. Pt transfers back to R sidelying in bed at end of tx with all needs met. Assessment Current Status: Good Progress Pt is walking longer distances more independently. Pt fatigues and reports pain in b shoulders so pt has to alter her posture. PT Concert Or Lecture Hall Manager Goals Concert Or Lecture Hall Manager Goals PT Halfway Goals Time Frame: Apr 30, 2017 Transfers (B,C,W/C) (FIM): 6 Gait (FIM): 6 Gait distance (FIM): 3=150 ft Gait Level of Assist: 6 Gait Assistive Device: FWW PT Plan Problem List Problem List: Activity Tolerance, Functional Strength, Safety, Balance, Gait, Transfer Treatment/Plan Treatment Plan: Continue Plan of Care Treatment Plan: Education, Functional Activity [place], Functional Strength, Gait , Safety, Therapeutic Exercise Treatment Duration: Apr 30, 2017 Frequency: 6 times per week Estimated Hrs Per Day: .25 hour per day Patient and/or Family Agrees t: Yes Safety Risks/Education Patient Education: Gait Training, Transfer Techniques, Correct Positioning, Safety Issues Teaching Recipient: Patient Teaching Methods: Discussion Response to Teaching: Verbalize Understanding Time/GCodes Time In: 1120 Time Out: 1143 Total Billed Treatment Time: 23 Total Billed Treatment 1, FA (8m) & GT (15m) PELON GARZON CONCERT SINGER Apr 21, 2017 12:07
[2017-04-21] MEDS: KCL 20 MEQ TAB (K-DUR) PO SCH ×2 (13:01→17:42)
[2017-04-21] MEDS: HYDROXYCHLOROQUINE 200 MG (PLAQUENIL) TAB PO SCH ×2 (13:01→17:41)
[2017-04-21] MEDS: ADVAIR HFA 115/21 MCG INHALER 8 GM IH SCH ×2 (14:54→18:46)
[2017-04-21 16:39] VITALS: BP 125/68
[2017-04-21 20:12] VITALS: BP 142/64
[2017-04-21] MEDS: GABAPENTIN 300 MG (NEURONTIN) CAP PO SCH (21:15)
[2017-04-21] MEDS: PANTOPRAZOLE 40 MG (PROTONIX) TAB PO SCH (21:15)
[2017-04-22] VITALS: BP 137/63
[2017-04-22] MEDS: MEROPENEM 500 MG in NS (IVPB) 100 ML IV SCH ×2 (00:55→05:41)
[2017-04-22] MEDS: inSUlin ASPART (NovoLOG) 1 UNIT/0.01 ML (CHARGE PER UNIT) SC SCH ×2 (00:55→06:42)
[2017-04-22] MEDS: RT-ALBUTEROL/IPRATROPIUM 3 ML (DUONEB) VIAL INH SCH ×2 (01:25→06:35)
[2017-04-22 04:00] VITALS: BP 162/81
[2017-04-22 06:07] LABS: BASOPHILS % (AUTO) 0 % (0-10); EOSINOPHILS # (AUTO) 0.4 10^3/uL (0.0-0.3); EOSINOPHILS % (AUTO) 5 % (0-10); HEMATOCRIT 29 % (35-52); HEMOGLOBIN 9.7 G/DL (11.5-16.0); LYMPHOCYTES # (AUTO) 1.8 X 10^3 (1.0-4.0); LYMPHOCYTES % (AUTO) 23 % (12-44); MEAN CORPUSCULAR HEMOGLOBIN 31 PG (25-34); MEAN CORPUSCULAR HGB CONC 34 G/DL (32-36); MEAN CORPUSCULAR VOLUME 91 FL (80-99); MEAN PLATELET VOLUME 9.8 FL (7.4-10.4); MONOCYTES # (AUTO) 0.7 X 10^3 (0.0-1.0); MONOCYTES % (AUTO) 9 % (0-12); NEUTROPHILS # (AUTO) 4.8 X 10^3 (1.8-7.8); NEUTROPHILS % (AUTO) 62 % (42-75); PLATELET COUNT 192 10^3/uL (130-400); RED BLOOD COUNT 3.14 10^6/uL (4.35-5.85); RED CELL DISTRIBUTION WIDTH 13.4 % (10.0-14.5); WHITE BLOOD COUNT 7.8 10^3/uL (4.3-11.0)
[2017-04-22 06:37] LABS: ALANINE AMINOTRANSFERASE 12 U/L (0-55); ALBUMIN 2.9 GM/DL (3.2-4.5); ALKALINE PHOSPHATASE 52 U/L (40-136); BILIRUBIN,TOTAL 0.6 MG/DL (0.1-1.0); BUN/CREATININE RATIO 18; CALCIUM 8.6 MG/DL (8.5-10.1); CARBON DIOXIDE 25 MMOL/L (21-32); CHLORIDE 102 MMOL/L (98-107); CREATININE SERUM 0.78 MG/DL (0.60-1.30); GFR ESTIMATED > 60; GLUCOSE 95 MG/DL (70-105); POTASSIUM 3.3 MMOL/L (3.6-5.0); SODIUM 139 MMOL/L (135-145)
[2017-04-22] MEDS ORDERED: ENALAPRIL 5 MG (VASOTEC) TAB PO SCH (09:00)
[2017-04-22] MEDS: DULoxetine 30 MG (CYMBALTA) CAP PO SCH (09:13)
[2017-04-22] MEDS: LORATADINE (CLARITIN) 10 MG TAB PO SCH (09:13)
[2017-04-22] MEDS: CLOPIDOGREL 75 MG (PLAVIX) TABLET PO SCH (09:13)
[2017-04-22] MEDS: A & D OINT 60 GM TUBE TP SCH (09:14)
[2017-04-22] MEDS ORDERED: KCL 10 MEQ TAB (MICRO K) PO SCH (09:15)
[2017-04-22] MEDS: CARVEDILOL 12.5 MG (COREG) TABLET PO SCH (09:18)
--- NOTE | 2017-04-22 10:06 | Discharge Summary-Hospitalist ---
Diagnosis/Chief Complaint Date of Admission Apr 19, 2017 at 12:30 Date of Discharge Discharge Date: Apr 22, 2017 Admission Diagnosis Severe Sepsis duet to UTI Discharge Diagnosis Chart Review: No fever Vitals stable BP elevated 151/72 WBC 7.3 Hgb 9.8 K+ 3.4 Creat 0.87 Final urine cx shows E. coli, staph, and enterococcus. Pt on Meropenem Pharmacy Review: ESBL, staph; Meropenem still okay. Pt is on day 3, will need a minimum of 5 days needed. If pt has a port, can do out-pt Ertapenem if needed. Pt Interview: Pt was informed that I will restart her diuretics today Pt states she is breathing well Pt confirms working with PT today, but has not been up yet Physical exam stable. Pt confirms receiving breathing treatments Pt confirms BM yesterday. Pt denies having catheter Abx discussed for bladder infection Pt was encouraged to ambulate Pt states she was frustrated with her RN last night, pt felt she was inattentive and did not give her pain meds when needed. I informed the pt that I may have put a restriction on this and will check into it No fever, vital signs stable, debilitated, chronically ill, pale Regular rate and rhythm, clear to auscultation bilaterally but upper airway congestion noted No edema noted with chronic nonpitting type due to chronic lymphedema Laboratory Tests 04/21/17 06:10 Assessment: Altered mental status with encephalopathy due to hyponatremia, acute renal failure, UTI with ESBL Severe sleep apnea semi-compliant with CPAP Diastolic dysfunction Chronic lymphedema Chronic anemia of chronic illness Morbid obesity Hypertension Restless leg syndrome 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 Clare Parada. (1) ESBL (extended spectrum beta-lactamase) producing bacteria infection Status: Acute Assessment & Plan: Meropenem (2) Severe sepsis Status: Acute Assessment & Plan: Apparent UTI on UA with LEIGHANN Has altered mental status as well and qualifies for SOFA criteria Not hypotensive so does not need 30cc/kg bolus Lactic acid pending Urine and blood cultures obtained in ER Started on Cipro in ER but upon reviewing cultures will switch to Merrem give previous sensitivities (3) UTI (urinary tract infection) Status: Acute Assessment & Plan: Per UA Await cultures Abx as above (4) LEIGHANN (acute kidney injury) Assessment & Plan: Continue IVF EF 50% on echo last fall Monitor I/Os and respiratory status (5) Altered mental status Status: Acute Assessment & Plan: Likely due to sepsis CT head obtained and negative (6) Fall Status: Acute Assessment & Plan: XR show no acute abnormalities PT/OT (7) Essential (primary) hypertension Assessment & Plan: Low normotensive currently Will hold home meds (8) Prophylactic measure Assessment & Plan: Lovenox NS Cardiac Diet Discharge Summary Discharge Physical Examination Allergies: Coded Allergies: NSAIDS (Non-Steroidal Anti-Inflamma (Unverified Allergy, Mild, 03/18/09) Penicillins (Verified Allergy, Unknown, 01/03/06) Sulfa (Sulfonamide Antibiotics) (Verified Allergy, Unknown, 01/03/06) aspirin (Verified Allergy, Unknown, 01/03/06) carbamazepine (Verified Allergy, Unknown, 09/20/06) cephalexin (Verified Allergy, Unknown, 01/03/06) iodine (Verified Allergy, Unknown, 01/03/06) latex (Unverified Allergy, Unknown, 06/21/13) Vitals & I&Os Vital Signs Date Time Temp Pulse Resp B/P (MAP) Pulse Ox O2 Delivery O2 Flow Rate FiO2 04/22/17 07:06 Nasal Cannula 2.00 04/22/17 06:36 96 04/22/17 04:00 98.6 87 17 162/81 (108) 04/20/17 15:24 28 Hospital Course Notes from 04/22/17 Chart Review: No fever Vitals stable WBC normal 7.8 Hgb 9.7 K+ 3.3 Creat 0.78 Will supplement K+ Pt Interview: Pt states she did not have a good night and could not sleep. Pt states she is freezing. Pt states she is okay to do swingbed to finish IV abx Pt denies BM yesterday, but had one the day before Pt was informed that her labs look good, but I will be supplementing K+ Pt confirms walking with PT yesterday and expects them soon today Physical exam stable. Lungs sound perfect and pt confirms having her breathing treatments. Lower limb edema examined. DC discussed for 04/26/17 Pt states she would like to continue Oxycodone for her legs. Pt states she ambulates more at home and it helps her leg pain Pt asked how often she needs insulin injections. I informed the pt that I will look into stopping these No fever, vital signs stable, pleasant, sitting in chair, improved, chronically ill, pale Regular rate and rhythm, clear to auscultation bilaterally but diminished in the bases but improved from yesterday No edema but chronic venous stasis changes Plan: DC sliding scale K+ supplementation SB Abdifatah Scribed by Moira Mar under direct supervision of Dr. Clare Parada. Hospital course: Patient had an uneventful hospital course she was admitted placed on gentle IV fluids for severe sepsis for presumed ESBL UTI with delirium. Lab work remained stable creatinine improved from 2.3 to normal renal function with IV fluids. Home medications were restarted and overall patient improved that required IV antibiotics of meropenem for an additional 4 days so she was placed on swing bed to complete that therapy and will likely be discharged on Wednesday. Poor prognosis long-term just due to severe comorbidities. Labs (last 24 hrs) Laboratory Tests 04/21/17 10:50: Glucometer 115H 04/21/17 16:20: Glucometer 107 04/21/17 21:43: Glucometer 110 04/22/17 05:59: White Blood Count 7.8, Red Blood Count 3.14L, Hemoglobin 9.7L, Hematocrit 29L, Mean Corpuscular Volume 91, Mean Corpuscular Hemoglobin 31, Mean Corpuscular Hemoglobin Concent 34, Red Cell Distribution Width 13.4, Platelet Count 192, Mean Platelet Volume 9.8, Neutrophils (%) (Auto) 62, Lymphocytes (%) (Auto) 23, Monocytes (%) (Auto) 9, Eosinophils (%) (Auto) 5, Basophils (%) (Auto) 0, Neutrophils # (Auto) 4.8, Lymphocytes # (Auto) 1.8, Monocytes # (Auto) 0.7, Eosinophils # (Auto) 0.4H, Basophils # (Auto) 0.0, Sodium Level 139, Potassium Level 3.3L, Chloride Level 102, Carbon Dioxide Level 25, Anion Gap 12, Blood Urea Nitrogen 14, Creatinine 0.78, Estimat Glomerular Filtration Rate > 60, BUN/ Creatinine Ratio 18, Glucose Level 95, Calcium Level 8.6, Total Bilirubin 0.6, Aspartate Amino Transf (AST/SGOT) 12, Alanine Aminotransferase (ALT/SGPT) 12, Alkaline Phosphatase 52, Total Protein 5.0L, Albumin 2.9L Microbiology 04/19/17 Blood Culture - Preliminary, Resulted No growth 04/19/17 Urine Culture - Final, Complete Escherichia coli Staphylococcus aureus Enterococcus faecalis Pending Labs Laboratory Tests 04/22/17 05:59: White Blood Count 7.8, Red Blood Count 3.14, Hemoglobin 9.7, Hematocrit 29, Mean Corpuscular Volume 91, Mean Corpuscular Hemoglobin 31, Mean Corpuscular Hemoglobin Concent 34, Red Cell Distribution Width 13.4, Platelet Count 192, Mean Platelet Volume 9.8, Neutrophils (%) (Auto) 62, Lymphocytes (%) (Auto) 23, Monocytes (%) (Auto) 9, Eosinophils (%) (Auto) 5, Basophils (%) (Auto) 0, Neutrophils # (Auto) 4.8, Lymphocytes # (Auto) 1.8, Monocytes # (Auto) 0.7, Eosinophils # (Auto) 0.4, Basophils # (Auto) 0.0, Sodium Level 139, Potassium Level 3.3, Chloride Level 102, Carbon Dioxide Level 25, Anion Gap 12, Blood Urea Nitrogen 14, Creatinine 0.78, Estimat Glomerular Filtration Rate > 60, BUN/ Creatinine Ratio 18, Glucose Level 95, Calcium Level 8.6, Total Bilirubin 0.6, Aspartate Amino Transf (AST/SGOT) 12, Alanine Aminotransferase (ALT/SGPT) 12, Alkaline Phosphatase 52, Total Protein 5.0, Albumin 2.9 Discussion & Recommendations Discharge Planning: <30 minutes discharge planning Discharge Home Medications: Active Scripts Active Reported Guaifenesin Dm Syrup (Guaifenesin/Dextromethorphan) 5 Ml Syrup 5 Ml PO Q6H PRN Calmoseptine Ointment (Menthol/Lanolin/Calamine/Znox) 71 Gm Oint TP UD PRN APPLY TO JARETT AREA Locoid (Hydrocortisone Butyrate) 15 Gm Cream..g. TP BID PRN Vitamin A & D Ointment (Vitamin A & D) 60 Gm Oint TP DAILY PRN APPLY TO BLE & FEET Guaifenesin AC Cough Syrup (Guaifenesin/Codeine Phosphate) 473 Ml Liquid 5 Ml PO Q6H PRN Oxycodone HCl 20 Mg Tablet 20 Mg PO Q6H PRN Simvastatin 20 Mg Tablet 20 Mg PO HS Bumetanide 2 Mg Tablet 2 Mg PO Q48H ALTERNATES WITH METOLAZONE Plavix (Clopidogrel Bisulfate) 75 Mg Tablet 75 Mg PO DAILY Metolazone 5 Mg Tablet 5 Mg PO Q48H ALTERNATES WITH BUMETANIDE Allergy Relief (Cetirizine HCl) 10 Mg Tablet 10 Mg PO DAILY Carvedilol 12.5 Mg Tablet 12.5 Mg PO BID Enalapril Maleate 5 Mg Tablet 2.5 Mg PO DAILY TAKES 1/2 (5MG) TABLET Duloxetine HCl 60 Mg Capsule.dr 60 Mg PO DAILY Hydroxychloroquine Sulfate 200 Mg Tablet 200 Mg PO 1200,1700 Gabapentin 300 Mg Capsule 300 Mg PO HS Nexium (Esomeprazole Magnesium) 40 Mg Cap 40 Mg PO HS Advair 250-50 Diskus (Fluticasone/Salmeterol) 1 Each Blst.w.dev 1 Puff IH BID Iprat-Albut 0.5-3(2.5) mg/3 ml (Ipratropium/Albuterol Sulfate) 3 Ml Ampul.neb 3 Ml NEB TID PRN Fluticasone Propionate 16 Gm Carson.susp 1 Carson NS DAILY PRN Vitamin D-3 (Cholecalciferol (Vitamin D3)) 2,000 Unit Capsule 2,000 Unit PO HS Potassium Chloride 10 Meq Capsule.er 20 Meq PO 1200,1700 TAKES 2 (10MEQ) CAPSULES Instructions to patient/family Please see electronic discharge instructions given to patient. Clinical Quality Measures DVT/VTE Risk/Contraindication: Risk Factor Score Per Nursin RFS Level Per Nursing on Admit: 4+=Very High Problem Qualifiers (1) UTI (urinary tract infection): Urinary tract infection type: acute cystitis Hematuria presence: without hematuria Qualified Codes: N30.00 - Acute cystitis without hematuria (2) Altered mental status: Altered mental status type: disorientation Qualified Codes: R41.0 - Disorientation, unspecified (3) Fall: Encounter type: initial encounter Qualified Codes: W19.XXXA - Unspecified fall, initial encounter CLARE PARADA DO Apr 22, 2017 10:06
[2017-04-22] MEDS ORDERED: BUMETANIDE 1 MG (BUMEX) TAB PO SCH (12:00)
--- NOTE | 2017-04-23 08:07 | Physician Query Clarification ---
PQ-Conflicting Diagnosis Admission/Discharge Admission Date: Apr 19, 2017 at 12:30 Discharge Date: Apr 22, 2017 at 10:08 The medical record reflects the following clinical scenario: History/Risk Factors: COPD, HTN W/CKD, DM NEUROPATHY, MOB Clinical Findings: AMS, UTI, LEIGHANN, T96.4, P76, R22, WBC 10.6, LACTIC 0.95 Treatment: Ciprofloxin 200 mg IV Question: Do you agree with the impression of the Sepsis per Dr. Dill. Please document a response below. PHYSICIAN RESPONSE Do you agree w/Consulting Dx?: Yes In responding to this query, please exercise your independent professional judgment. The purpose of this communication is to more accurately reflect the complexity of your patients condition. The fact that a question is asked does not imply that any particular answer is desired or expected. Thank you for your timely response to this clarification. Requestors name: Dwight THIS PHYSICIAN QUERY FORM IS A PERMANENT PART OF THE MEDICAL RECORD DWIGHT RODRIGUEZ Apr 23, 2017 08:07 SIENNA MADERA DO Apr 23, 2017 08:12
== END 2017-04-22 10:08 | disposition swing bed (61) | DRG 871 ==
LOC: EDUNIT# 08:50 → ER 08:52 → 4TH 12:30
PROVIDERS: ADMIT Family Medicine; ATTEND Family Medicine
DX: A41.9 Sepsis, unspecified organism (principal); N30.00 Acute cystitis without hematuria; N17.9 Acute kidney failure, unspecified; E87.1 Hypo-osmolality and hyponatremia; G93.40 Encephalopathy, unspecified; J44.9 Chronic obstructive pulmonary disease, unspecified; I12.9 Hypertensive chronic kidney disease with stage 1 through stage 4 chronic kidney disease, or unspecified chronic kidney disease; N18.9 Chronic kidney disease, unspecified; E11.40 Type 2 diabetes mellitus with diabetic neuropathy, unspecified; E66.01 Morbid (severe) obesity due to excess calories; Z68.41 Body mass index [BMI] 40.0-44.9, adult; K21.9 Gastro-esophageal reflux disease without esophagitis; G47.30 Sleep apnea, unspecified; I89.0 Lymphedema, not elsewhere classified; D63.8 Anemia in other chronic diseases classified elsewhere; G25.81 Restless legs syndrome; M34.1 CR(E)ST syndrome; E11.51 Type 2 diabetes mellitus with diabetic peripheral angiopathy without gangrene; E78.5 Hyperlipidemia, unspecified; B96.20 Unspecified Escherichia coli [E. coli] as the cause of diseases classified elsewhere; Z99.81 Dependence on supplemental oxygen; Z95.820 Peripheral vascular angioplasty status with implants and grafts
CPT/HCPCS: 36415; 70450; 71045; 72125; 73030; 73502; 80048; 80053; 81000; 82962; 83605; 83735; 85025; 86141; 87040; 87077; 87088; 87186; 94640; 94760

== ENCOUNTER 2017-04-22 10:12 | Inpatient (IN) | payer MEDICARE, OTHER ==
[~2017-04-22] VITALS: Ht 162.6 cm; Wt 119.3 kg
[2017-04-22 08:00] VITALS: BP 159/67
[2017-04-22] MEDS ORDERED: BUMETANIDE 1 MG (BUMEX) TAB PO SCH ×2 (10:15→12:00)
[2017-04-22] MEDS ORDERED: METOLAZONE 5 MG (ZAROXOLYN) TAB PO SCH (10:15)
[2017-04-22] MEDS ORDERED: FLUTICASONE NASAL SPRAY (FLONASE) 16 GM BTL NS PRN (10:15)
[2017-04-22] MEDS ORDERED: MENTHOL/ZINC OXIDE (CALMOSEPTINE) 113 GM TUBE TP PRN (10:15)
[2017-04-22] MEDS ORDERED: RT-ALBUTEROL/IPRATROPIUM 3 ML (DUONEB) VIAL INH PRN ×2 (10:15→21:00)
[2017-04-22] MEDS ORDERED: CATHETER FLUSH 10 ML SYR IV PRN (10:15)
[2017-04-22] MEDS ORDERED: ONDANSETRON 4 MG/2 ML (SDV) Z0FRAN IV PRN (10:15)
[2017-04-22] MEDS ORDERED: ACETAMINOPHEN 500 MG TAB (TYLENOL) PO PRN (10:15)
[2017-04-22] MEDS ORDERED: guaiFENesin/DM (ROBITUSSIN DM) 10 ML UDC PO PRN (10:15)
[2017-04-22] MEDS: RT-ALBUTEROL/IPRATROPIUM 3 ML (DUONEB) VIAL INH SCH ×3 (10:39→18:23)
--- NOTE | 2017-04-22 11:44 | Physical Therapy Evaluation ---
PT Evaluation-General Medical Diagnosis Admission Date Apr 22, 2017 at 10:12 Medical Diagnosis: AMS/UTI Onset Date: Apr 19, 2017 Therapy Diagnosis Therapy Diagnosis: debility Height/Weight Height (Feet): 5 Height (Inches): 4.00 Weight (Pounds): 263 Weight (Ounces): 0.0 Precautions Precautions/Isolations: Contact Isolation, Standard Precautions Weight Bear Status Right Lower Extremity: Right Full Weight Bearing Left Lower Extremity: Left Full Weight Bearing Referral Physician: Matilda Reason for Referral: Evaluation/Treatment Medical History Pertinent Medical History: Arthritis, CAD, COPD, GERD, HTN, Neuropathy, Rheumatoid Arthritis Additional Medical History morbid obesity Current History SWB status Reviewed History: Yes Social History Home: Assisted Living Prior/Core FIM Prior Level of Function Functional [place] Measure 0=Not Assessed/NA 4=Minimal Assistance 1=Total Assistance 5=Supervision or Setup 2=Maximal Assistance 6=Modified [place] 3=Moderate Assistance 7=Complete [place] Bed Mobility: 6 Transfers (B,C,W/C) (FIM): 6 Gait: 6 PT Evaluation-Current Subjective Patient agrees to PT. Pain Numeric Pain Scale: 0-No Pain Location: No Pain Reported Objective Patient Orientation: Normal For Age Problem Solving: Good Attachments: Oxygen ROM/Strength ROM Lower Extremities bilateral LE WNL Strenght Lower Extremities right knee flexion/extension 4/5; hip flexion 4/5; DF/PF 4/5; abd/add 4/5 left knee flexion/extension 4/5; hip flexion 4/5; DF/PF 4/5; abd/add 4/5 Integumentary/Posture Integumentary refer to nursing notes Bladder Incontinence: Yes Posture slightly kyphotic Neuromuscular (Tone, Coordination, Reflexes) grossly intact Sensory Vision: Wears Glasses Hearing: Functional Sensation Right Lower Extremit: Impaired Sensation Left Lower Extremity: Impaired Transfers Functional [place] Measure 0=Not Assessed/NA 4=Minimal Assistance 1=Total Assistance 5=Supervision or Setup 2=Maximal Assistance 6=Modified [place] 3=Moderate Assistance 7=Complete [place] Transfers (B, C, W/C) (FIM): 5 Scootin Rollin Supine to/from Sit: 5 Sit to/from Stand: 5 Sit to Lying (QC): 5 Lying to Sitting/Side of Bed(Q: 5 Sit to Stand (QC): 5 Chair/Wmw-ej-Wqyld Xfer(QC): 5 Gait Does the Patient Walk?: Yes Mode of Locomotion: Walk Anticipated Mode of Locomotion: Walk Gait (FIM): 5 Distance (FIM): 3=150 ft Distance: 250' Walk 50 ft with 2 Turns(QC): 5 Walk 150 ft (QC): 5 Gait Level of Assist: 5 Gait Assistive Device: FWW Comments/Gait Description patient leans forearms on FWW during gait Wheelchair Training Does the Pt Use a Wheelchair?: No Balance Sitting Static: Normal Sitting Dynamic: Normal Standing Static: Normal Standing Dynamic: Normal Treatment Ambulate with FWW, SBA x 250' with leaning forearms on FWW with slow, shuffle gait sequence. Bilateral LE exercises seated EOB 20 reps bilaterally AP and LAQ. Assessment/Needs 71 y.o. female, will benefit from skilled PT to address functional strength and mobility to improve current LOF and to safely return to [place] at maximum LOF. 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 Time Frame: May 07, 2017 Transfers (B,C,W/C) (FIM): 6 Sit to Lying (QC): 6 Lying-Sitting on Side/Bed(QC): 6 Sit to Stand (QC): 6 Rollin Chair/Ure-ir-Xoqum Xfer(QC): 6 Does the Patient Walk: Yes Gait (FIM): 6 Gait distance (FIM): 3=150 ft Distance: 250' Walk 50ft with 2 Turns (QC): 6 Walk 150 ft (QC): 6 Gait Level of Assist: 6 Gait Assistive Device: FWW PT Plan Treatment/Plan Treatment Plan: Continue Plan of Care Treatment Plan: Bed Mobility, Education, Functional Activity [place], Functional Strength, Gait, Safety, Therapeutic Exercise, Transfers Treatment Duration: May 07, 2017 Frequency: 6 times per week Estimated Hrs Per Day: .25 hour per day Patient and/or Family Agrees t: Yes Safety Risks/Education Patient Education: Safety Issues Teaching Recipient: Patient Teaching Methods: Discussion Response to Teaching: Verbalize Understanding Discharge Recommendations Therapy D/C Recommendations: Assisted Living Time/GCodes Time In: 1101 Time Out: 1124 Total Billed Treatment Time: 23 Total Billed Treatment 1 visit EVModC 8 min FA 15 min GARO NICK PT Apr 22, 2017 11:44
[2017-04-22 12:00] VITALS: BP 156/62
[2017-04-22] MEDS: KCL 10 MEQ TAB (MICRO K) PO SCH ×2 (12:44→16:22)
[2017-04-22] MEDS: MEROPENEM 500 MG in NS (IVPB) 100 ML IV SCH ×3 (12:44→23:59)
[2017-04-22] MEDS: HYDROXYCHLOROQUINE 200 MG (PLAQUENIL) TAB PO SCH ×2 (12:59→16:22)
--- NOTE | 2017-04-22 15:39 | Occupational Therapy Eval ---
OT Evaluation-General/PLF Medical Diagnosis Admission Date Apr 22, 2017 at 10:12 Medical Diagnosis: AMS/UTI Onset Date: Apr 19, 2017 Therapy Diagnosis Therapy Diagnosis: Weakness Height/Weight Height (Feet): 5 Height (Inches): 4.00 Weight (Pounds): 263 Weight (Ounces): 0.0 Precautions Precautions/Isolations: Contact Isolation, Standard Precautions Weight Bear Status Weight Bearing Restriction: Weight Bearing/Tolerated Referral Physician: Matilda Referral Reason: Activity Tolerance, Self Care, Evaluation/Treatment, Strengthening/ROM Medical History Pertinent Medical History: Arthritis, CAD, COPD, GERD, HTN, Neuropathy, Rheumatoid Arthritis Current History Pt. states that she "wanted to sleep all the time." Staff at [facility] called an ambulance because she was confused. Found to have a UTI. Reviewed History: Yes Social History Home: Assisted Living Entry Into Home: Level Entry ADL-Prior Level of Function ADL PLOF Comments Pt. lives in "suite" at [facility]. Pt. states that she gets help to bathe and dress. They cook all her meals. Pt. has her son do any shopping for her. Pt. on Oxygen at all times. DME/Equipment: Bath Chair, Shower DME/Equipment Comments Pt. has a walker and wheelchair. Drive Self: No OT Current Status Subjective Pt. does not report pain. Appearance Pt. in bed. Agrees to work with OT. Agrees to shower. Mental Status/Objective Patient Orientation: Person, Place, Time Attachments: IV, Oxygen Current Glasses/Contacts: Yes Hand Dominance: Right Upper Extremity ROM Pt. demonstrates approximately 90 degrees bilateral shoulder flexion. Pt. states that she had an old right RCT, and that she fell on her left shoulder. Both of these injuries limit her ROM. ADL-Treatment Functional [place] Measure 0=Not Assessed/NA 4=Minimal Assistance 1=Total Assistance 5=Supervision or Setup 2=Maximal Assistance 6=Modified [place] 3=Moderate Assistance 7=Complete IndependenceIRFPAI Quality Coding Scale 6 Independent with activity with or without an assistive device 5 Patient requires set up or clean up by helper. Patient completes activity by themselves 4 Supervision or touching assist (CGA). [place] provide cues , steadying assist 3 The helper provides less than half the effort to complete the activity 2 The helper provides more than half the effort to complete the activity 1 Dependent. The helper does all the effort to complete an activity 7 Patient refused to complete or attempt activity 9 The patient did not perform the activity before the current illness or injury 88 Not attempted due to Medical conditions or safety concerns Eating (FIM): 5 (Pt. is able to feed self after set up. Pt. does require increased time to complete this task.) Eating (QC): 4 Grooming (FIM): 5 (Set up to comb hair.) Bathing (FIM): 3 (Pt. requires assist to bathe bilateral feet and back.) Upper Body Dressing (FIM): 4 (Pt. requires assist to pull down bra in back. No other street clothing available.) Lower Body Dressing (FIM): 2 (Pt. requires assist to don brief and slipper socks.) Toileting (FIM): 5 Toileting Hygiene (QC): 5 Transfers (B, C, W/C) (FIM): 5 (SBA to ambulate with walker. Pt. requires increased time with tasks.) Toilet/Commode Transfer (FIM): 5 Toilet Transfer (QC): 5 Shower Transfer (FIM): 5 Education OT Patient Education: Correct positioning, Modified ADL techniques, Progress toward Goal/Update tx plan, Purpose of tx/functional activities, Reviewed precautions, Rehab process, Transfer techniques Teaching Recipient: Patient Teaching Methods: Demonstration, Discussion Response to Teaching: Verbalize Understanding, Return Demonstration OT Short Term Goals Short Term Goals 1=Demonstrate adherence to instructed precautions during ADL tasks. 2=Patient will verbalize/demonstrate understanding of assistive devices/ modifications for ADL. 3=Patient will improve strength/tolerance for activity to enable patient to perform ADL's. OT Correction Goals Territory Account Executive Goals Time Frame: Apr 29, 2017 Eating (FIM): 6 Eating (QC): 6 Groomin Oral Hygiene (QC): 6 Bathing(FIM): 4 Upper Body Dressing(FIM): 6 Lower Body Dressing(FIM): 4 Toileting(FIM): 5 Toileting Hygiene (QC): 5 Transfers (B,C,W/C) (FIM): 5 Toilet/Commode Transfer(FIM): 5 Toilet/Commode Transfer (QC): 5 Shower Transfer(FIM): 5 Additional Goals: 1-Demonstrate ADL Tasks, 2-Verbalize Understanding, 3- ImproveStrength/[place] 1=Demonstrate adherence to instructed precautions during ADL tasks. 2=Patient will verbalize/demonstrate understanding of assistive devices/ modifications for ADL. 3=Patient will improve strength/tolerance for activity to enable patient to perform ADL's. OT Education/Plan Problem List/Assessment Assessment: Decreased Activ Tolerance, Decreased UE Strength, Dependent Transfers, Impaired Funct Balance, Impaired I ADL's, Impaired Self-Care Skills, Restricted Funct UE ROM Discharge Recommendations Plan/Recommendations: Continue POC Therapy D/C Recommendations: Assisted Living, Occupational Therapy Home Care Target Placement Back to [facility] with support as needed. Treatment Plan/Plan of Care Treatment,Training & Education: Yes Patient would benefit from OT for education, treatment and training to promote independence in ADL's, mobility, safety and/or upper extremity function for ADL' s. Plan of Care: ADL Retraining, Functional Mobility Treatment Duration: Apr 29, 2017 Frequency: 5 times per week Estimated Hrs Per Day: .5 hour per day Agreement: Yes Rehab Potential: Fair Time/GCodes Start Time: 13:55 Stop Time: 15:15 Total Time Billed (hr/min): 60 Billed Treatment Time 7296-1755 1, EVM x 15minutes [id number] ADL x 45minutes SELMA MAURICIO OT Apr 22, 2017 15:39
[2017-04-22 16:13] VITALS: BP 131/77
[2017-04-22] MEDS: ADVAIR HFA 115/21 MCG INHALER 8 GM IH SCH (18:23)
[2017-04-22 20:11] VITALS: BP 127/79
[2017-04-22 20:29] VITALS: BP 131/77
[2017-04-22] MEDS ORDERED: KCL 10 MEQ TAB (MICRO K) PO SCH (21:00)
[2017-04-22] MEDS: GABAPENTIN 300 MG (NEURONTIN) CAP PO SCH (21:28)
[2017-04-22] MEDS: PANTOPRAZOLE 40 MG (PROTONIX) TAB PO SCH (21:28)
[2017-04-22] MEDS: CARVEDILOL 12.5 MG (COREG) TABLET PO SCH (21:28)
[2017-04-22] MEDS: A & D OINT 60 GM TUBE TP SCH (21:28)
[2017-04-23] MEDS: RT-ALBUTEROL/IPRATROPIUM 3 ML (DUONEB) VIAL INH SCH ×5 (02:12→23:36)
[2017-04-23] MEDS: MEROPENEM 500 MG in NS (IVPB) 100 ML IV SCH ×4 (05:45→23:25)
[2017-04-23 06:00] VITALS: BP 134/68
[2017-04-23] MEDS: ADVAIR HFA 115/21 MCG INHALER 8 GM IH SCH ×2 (06:53→23:36)
[2017-04-23] MEDS: METOLAZONE 5 MG (ZAROXOLYN) TAB PO SCH (08:51)
[2017-04-23] MEDS: DULoxetine 30 MG (CYMBALTA) CAP PO SCH (08:51)
[2017-04-23] MEDS: CARVEDILOL 12.5 MG (COREG) TABLET PO SCH ×2 (08:52→20:54)
[2017-04-23] MEDS: CLOPIDOGREL 75 MG (PLAVIX) TABLET PO SCH (08:52)
[2017-04-23] MEDS: LORATADINE (CLARITIN) 10 MG TAB PO SCH (08:52)
[2017-04-23] MEDS: A & D OINT 60 GM TUBE TP SCH ×2 (08:52→20:56)
[2017-04-23] MEDS: ENALAPRIL 5 MG (VASOTEC) TAB PO SCH (08:52)
--- NOTE | 2017-04-23 09:23 | Progress Note-Hospitalist ---
Progress Note Progress Notes/Assess & Plan Date Seen 04/23/17 Time Seen by Provider: 08:40 Diagonsis/Assessment & Plan Pt doing well Walking well with PT No BM and requests meds. Wants josé luis for abdominal folds Checked meds. 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
[2017-04-23] MEDS ORDERED: SENNOSIDES 8.6 MG (SENOKOT) TAB PO NR (09:30)
[2017-04-23] MEDS: LACTULOSE SYRUP 10GM/15ML (ENULOSE) 30ML UDC PO SCH ×2 (10:08→20:53)
[2017-04-23] MEDS: NYSTATIN CREAM (MYCOSTATIN) 30 GM TUBE TP SCH ×2 (10:10→20:56)
[2017-04-23] MEDS: KCL 10 MEQ TAB (MICRO K) PO SCH ×2 (12:15→16:55)
[2017-04-23] MEDS: HYDROXYCHLOROQUINE 200 MG (PLAQUENIL) TAB PO SCH ×2 (12:15→16:55)
--- NOTE | 2017-04-23 12:38 | Occupational Ther Daily Note ---
OT Current Status-Daily Note Subjective Pt alert, lying in bed. No c/o pain, c/o fatigue. Pt agreed to therapy. Mental Status/Objective Patient Orientation: Person, Place, Time, Situation Functional Nance Measure 0=Not Assessed/NA 4=Minimal Assistance 1=Total Assistance 5=Supervision or Setup 2=Maximal Assistance 6=Modified Nance 3=Moderate Assistance 7=Complete Nance ADL-Treatment Functional Nance Measure 0=Not Assessed/NA 4=Minimal Assistance 1=Total Assistance 5=Supervision or Setup 2=Maximal Assistance 6=Modified [place] 3=Moderate Assistance 7=Complete IndependenceIRFPAI Quality Coding Scale 6 Independent with activity with or without an assistive device 5 Patient requires set up or clean up by helper. Patient completes activity by themselves 4 Supervision or touching assist (CGA). [place] provide cues , steadying assist 3 The helper provides less than half the effort to complete the activity 2 The helper provides more than half the effort to complete the activity 1 Dependent. The helper does all the effort to complete an activity 7 Patient refused to complete or attempt activity 9 The patient did not perform the activity before the current illness or injury 88 Not attempted due to Medical conditions or safety concerns Other Treatment Pt completed 6 UE exercises,, 2 sets 10 reps to increase strength and activity tolerance. Pt required increased recovery time between sets. After therapy, pt left in care of PT. All needs met in room. OT Short Term Goals Short Term Goals 1=Demonstrate adherence to instructed precautions during ADL tasks. 2=Patient will verbalize/demonstrate understanding of assistive devices/ modifications for ADL. 3=Patient will improve strength/tolerance for activity to enable patient to perform ADL's. OT Retirement Goals Roller Checker Goals Time Frame: Apr 29, 2017 Eating (FIM): 6 Eating (QC): 6 Groomin Oral Hygiene (QC): 6 Bathing(FIM): 4 Upper Body Dressing(FIM): 6 Lower Body Dressing(FIM): 4 Toileting(FIM): 5 Toileting Hygiene (QC): 5 Transfers (B,C,W/C) (FIM): 5 Toilet/Commode Transfer(FIM): 5 Toilet/Commode Transfer (QC): 5 Shower Transfer(FIM): 5 Additional Goals: 1-Demonstrate ADL Tasks, 2-Verbalize Understanding, 3- ImproveStrength/Lakeshia 1=Demonstrate adherence to instructed precautions during ADL tasks. 2=Patient will verbalize/demonstrate understanding of assistive devices/ modifications for ADL. 3=Patient will improve strength/tolerance for activity to enable patient to perform ADL's. OT Education/Plan Discharge Recommendations Plan/Recommendations: Continue POC Treatment Plan/Plan of Care Patient would benefit from OT for education, treatment and training to promote independence in ADL's, mobility, safety and/or upper extremity function for ADL' s. Plan of Care: ADL Retraining, Functional Mobility Treatment Duration: Apr 29, 2017 Frequency: 5 times per week Estimated Hrs Per Day: .5 hour per day Agreement: Yes Rehab Potential: Fair Time/GCodes Start Time: 11:25 Stop Time: 11:40 Total Time Billed (hr/min): 15 Billed Treatment Time 1 visit-EX 1 (15 min) MORELIA LESLIE Apr 23, 2017 12:38
--- NOTE | 2017-04-23 13:29 | Physical Therapy Daily Note ---
PT Daily Note-Current Subjective Pt laying R side lying working with OT upon arrival. Pt agrees to PT. Pain Numeric Pain Scale: 5-Moderate Pain Location: Right, Left Location Body Site: Shoulder Pain Description: Ache Mental Status Patient Orientation: Person, Place, Situation Attachments: Oxygen Transfers Functional [place] Measure 0=Not Assessed/NA 4=Minimal Assistance 1=Total Assistance 5=Supervision or Setup 2=Maximal Assistance 6=Modified [place] 3=Moderate Assistance 7=Complete IndependenceIRFPAI Quality Coding Scale 6 Independent with activity with or without an assistive device 5 Patient requires set up or clean up by helper. Patient completes activity by themselves 4 Supervision or touching assist (CGA). [place] provide cues , steadying assist 3 The helper provides less than half the effort to complete the activity 2 The helper provides more than half the effort to complete the activity 1 Dependent. The helper does all the effort to complete an activity 7 Patient refused to complete or attempt activity 9 The patient did not perform the activity before the current illness or injury 88 Not attempted due to Medical conditions or safety concerns Scootin Roll Left to Right (QC): 5 Supine to/from Sit: 5 Sit to/from Stand: 5 Sit to Lying (QC): 4 Sit to Stand (QC): 5 Weight Bearing Right Lower Extremity: Right Full Weight Bearing Left Lower Extremity: Left Full Weight Bearing Gait Training Does the Patient Walk?: Yes Distance (FIM): 3=150 ft Distance: 350' Walk 50 ft with 2 Turns(QC): 5 Walk 150 ft (QC): 5 Gait Level of Assist: 5 Gait Assistive Device: FWW Pt has slow, steady [place]. Pt leans forearms on FWW due to pain B shoulders when ambulating. Wheelchair Training Does the Pt Use a Wheelchair?: No Treatments Pt works on dressing with extra hospital gown, socks & shoes for ambulation. Pt transfers from Supine to EOB at SBA then EOB to Standing after dressing at SBA. Pt ambulates in hallway using FWW at SBA. Pt returns to room to rest at EOB. Nursing arrives to give meds, pt has all needs met. Assessment Current Status: Good Progress Pt's transfers and ambulation have improved and pt is able to walk increased distances. PT Division Merchandise Manager Goals Half-Way Goals PT Half-Way Goals Time Frame: May 07, 2017 Transfers (B,C,W/C) (FIM): 6 Sit to Lying (QC): 6 Lying-Sitting on Side/Bed(QC): 6 Sit to Stand (QC): 6 Rollin Chair/Bsv-xc-Rhpdd Xfer(QC): 6 Does the Patient Walk: Yes Gait (FIM): 6 Gait distance (FIM): 3=150 ft Distance: 250' Walk 50ft with 2 Turns (QC): 6 Walk 150 ft (QC): 6 Gait Level of Assist: 6 Gait Assistive Device: FWW PT Plan Problem List Problem List: Activity Tolerance, Functional Strength, Safety, Balance, Gait Treatment/Plan Treatment Plan: Continue Plan of Care Treatment Plan: Bed Mobility, Education, Functional Activity [place], Functional Strength, Gait, Safety, Therapeutic Exercise, Transfers Treatment Duration: May 07, 2017 Frequency: 6 times per week Estimated Hrs Per Day: .25 hour per day Patient and/or Family Agrees t: Yes Safety Risks/Education Patient Education: Gait Training, Transfer Techniques, Correct Positioning Teaching Recipient: Patient Teaching Methods: Discussion Response to Teaching: Verbalize Understanding Time/GCodes Time In: 1145 Time Out: 1218 Total Billed Treatment Time: 33 Total Billed Treatment 1, FA (13m) & GT (20m) PELON GARZON PTA Apr 23, 2017 13:29
[2017-04-23 18:33] VITALS: BP 140/63
[2017-04-23] MEDS: GABAPENTIN 300 MG (NEURONTIN) CAP PO SCH (20:53)
[2017-04-23] MEDS: PANTOPRAZOLE 40 MG (PROTONIX) TAB PO SCH (20:54)
[2017-04-23] MEDS: TRIAMCINOLONE 0.1% CR (KENALOG) 15 GM TUBE TOP SCH (20:54)
[2017-04-23] MEDS: MICONAZOLE 2% POWDER (DESENEX AF) 90 GM TOP SCH (20:54)
[2017-04-24] MEDS: RT-ALBUTEROL/IPRATROPIUM 3 ML (DUONEB) VIAL INH SCH ×4 (03:29→21:05)
[2017-04-24] MEDS: MEROPENEM 500 MG in NS (IVPB) 100 ML IV SCH ×4 (05:21→23:18)
[2017-04-24 06:00] VITALS: BP 146/65
[2017-04-24 06:10] LABS: BASOPHILS % (AUTO) 0 % (0-10); EOSINOPHILS # (AUTO) 0.5 10^3/uL (0.0-0.3); EOSINOPHILS % (AUTO) 6 % (0-10); HEMATOCRIT 30 % (35-52); HEMOGLOBIN 9.9 G/DL (11.5-16.0); LYMPHOCYTES # (AUTO) 1.6 X 10^3 (1.0-4.0); LYMPHOCYTES % (AUTO) 19 % (12-44); MEAN CORPUSCULAR HEMOGLOBIN 30 PG (25-34); MEAN CORPUSCULAR HGB CONC 33 G/DL (32-36); MEAN CORPUSCULAR VOLUME 91 FL (80-99); MEAN PLATELET VOLUME 9.9 FL (7.4-10.4); MONOCYTES # (AUTO) 0.7 X 10^3 (0.0-1.0); MONOCYTES % (AUTO) 8 % (0-12); NEUTROPHILS # (AUTO) 5.4 X 10^3 (1.8-7.8); NEUTROPHILS % (AUTO) 67 % (42-75); PLATELET COUNT 187 10^3/uL (130-400); RED CELL DISTRIBUTION WIDTH 13.5 % (10.0-14.5); WHITE BLOOD COUNT 8.1 10^3/uL (4.3-11.0)
[2017-04-24 06:41] LABS: ALANINE AMINOTRANSFERASE 10 U/L (0-55); ALKALINE PHOSPHATASE 61 U/L (40-136); BILIRUBIN,TOTAL 0.7 MG/DL (0.1-1.0); BUN/CREATININE RATIO 14; CALCIUM 8.8 MG/DL (8.5-10.1); CARBON DIOXIDE 29 MMOL/L (21-32); CHLORIDE 101 MMOL/L (98-107); CREATININE SERUM 0.72 MG/DL (0.60-1.30); GFR ESTIMATED > 60; GLUCOSE 98 MG/DL (70-105); POTASSIUM 3.5 MMOL/L (3.6-5.0); SODIUM 138 MMOL/L (135-145); TOTAL PROTEIN 5.2 GM/DL (6.4-8.2)
[2017-04-24] MEDS: BUMETANIDE 1 MG (BUMEX) TAB PO SCH (08:21)
[2017-04-24] MEDS: LACTULOSE SYRUP 10GM/15ML (ENULOSE) 30ML UDC PO SCH ×2 (08:21→20:56)
[2017-04-24] MEDS: LORATADINE (CLARITIN) 10 MG TAB PO SCH (08:22)
[2017-04-24] MEDS: CLOPIDOGREL 75 MG (PLAVIX) TABLET PO SCH (08:22)
[2017-04-24] MEDS: CARVEDILOL 12.5 MG (COREG) TABLET PO SCH ×2 (08:22→20:57)
[2017-04-24] MEDS: ENALAPRIL 5 MG (VASOTEC) TAB PO SCH (08:22)
[2017-04-24] MEDS: DULoxetine 30 MG (CYMBALTA) CAP PO SCH (08:22)
[2017-04-24] MEDS: MICONAZOLE 2% POWDER (DESENEX AF) 90 GM TOP SCH ×2 (08:23→21:00)
[2017-04-24] MEDS: NYSTATIN CREAM (MYCOSTATIN) 30 GM TUBE TP SCH ×3 (08:23→20:59)
[2017-04-24] MEDS: TRIAMCINOLONE 0.1% CR (KENALOG) 15 GM TUBE TOP SCH ×2 (08:23→20:59)
[2017-04-24] MEDS: A & D OINT 60 GM TUBE TP SCH ×2 (08:23→21:00)
[2017-04-24] MEDS: ADVAIR HFA 115/21 MCG INHALER 8 GM IH SCH ×2 (09:11→21:06)
[2017-04-24] MEDS: HYDROXYCHLOROQUINE 200 MG (PLAQUENIL) TAB PO SCH ×2 (12:18→16:41)
[2017-04-24] MEDS: KCL 10 MEQ TAB (MICRO K) PO SCH ×2 (12:18→16:42)
--- NOTE | 2017-04-24 14:02 | Physical Therapy Daily Note ---
PT Daily Note-Current Subjective Pt is in bed. Agreeable to treatment. Mental Status Patient Orientation: Person, Place, Time, Situation Attachments: Oxygen Transfers Functional [place] Measure 0=Not Assessed/NA 4=Minimal Assistance 1=Total Assistance 5=Supervision or Setup 2=Maximal Assistance 6=Modified [place] 3=Moderate Assistance 7=Complete IndependenceIRFPAI Quality Coding Scale 6 Independent with activity with or without an assistive device 5 Patient requires set up or clean up by helper. Patient completes activity by themselves 4 Supervision or touching assist (CGA). [place] provide cues , steadying assist 3 The helper provides less than half the effort to complete the activity 2 The helper provides more than half the effort to complete the activity 1 Dependent. The helper does all the effort to complete an activity 7 Patient refused to complete or attempt activity 9 The patient did not perform the activity before the current illness or injury 88 Not attempted due to Medical conditions or safety concerns Transfers (B, C, W/C) (FIM): 6 Scootin Roll Left to Right (QC): 6 Supine to/from Sit: 6 Sit to/from Stand: 6 Sit to Lying (QC): 6 Sit to Stand (QC): 6 Weight Bearing Right Lower Extremity: Right Full Weight Bearing Left Lower Extremity: Left Full Weight Bearing Gait Training Does the Patient Walk?: Yes Distance (FIM): 3=150 ft Distance: 250ft Walk 50 ft with 2 Turns(QC): 6 Walk 150 ft (QC): 6 Gait Level of Assist: 6 Gait Persons Needed: 1 Gait Assistive Device: FWW Wheelchair Training Does the Pt Use a Wheelchair?: No Exercises Supine Ex: LE Protocol Supine Reps: 15 Assessment Good stability and improving (I) with mobility. PT Director Of Career Services Goals Half-Way Goals PT Half-Way Goals Time Frame: May 07, 2017 Transfers (B,C,W/C) (FIM): 6 Sit to Lying (QC): 6 Lying-Sitting on Side/Bed(QC): 6 Sit to Stand (QC): 6 Rollin Chair/Nqs-vz-Sqmaj Xfer(QC): 6 Does the Patient Walk: Yes Gait (FIM): 6 Gait distance (FIM): 3=150 ft Distance: 250' Walk 50ft with 2 Turns (QC): 6 Walk 150 ft (QC): 6 Gait Level of Assist: 6 Gait Assistive Device: FWW PT Plan Treatment/Plan Treatment Plan: Continue Plan of Care Treatment Plan: Bed Mobility, Education, Functional Activity [place], Functional Strength, Gait, Safety, Therapeutic Exercise, Transfers Treatment Duration: May 07, 2017 Frequency: 6 times per week Estimated Hrs Per Day: .25 hour per day Patient and/or Family Agrees t: Yes Time/GCodes Time In: 1145 Time Out: 1200 Total Billed Treatment Time: 15 Total Billed Treatment 1, gt 15 HARLEY HEWITT PT Apr 24, 2017 14:02
[2017-04-24 18:59] VITALS: BP 132/61
[2017-04-24] MEDS: GABAPENTIN 300 MG (NEURONTIN) CAP PO SCH (20:57)
[2017-04-24] MEDS: PANTOPRAZOLE 40 MG (PROTONIX) TAB PO SCH (20:57)
[2017-04-25] MEDS: RT-ALBUTEROL/IPRATROPIUM 3 ML (DUONEB) VIAL INH SCH ×4 (03:00→20:06)
[2017-04-25] MEDS: MEROPENEM 500 MG in NS (IVPB) 100 ML IV SCH ×3 (05:31→17:57)
[2017-04-25 05:46] VITALS: BP 152/67
[2017-04-25] MEDS: ADVAIR HFA 115/21 MCG INHALER 8 GM IH SCH ×2 (08:07→20:06)
[2017-04-25] MEDS: METOLAZONE 5 MG (ZAROXOLYN) TAB PO SCH (08:09)
[2017-04-25] MEDS: LORATADINE (CLARITIN) 10 MG TAB PO SCH (08:09)
[2017-04-25] MEDS: CARVEDILOL 12.5 MG (COREG) TABLET PO SCH ×2 (08:09→22:34)
[2017-04-25] MEDS: DULoxetine 30 MG (CYMBALTA) CAP PO SCH (08:10)
[2017-04-25] MEDS: CLOPIDOGREL 75 MG (PLAVIX) TABLET PO SCH (08:10)
[2017-04-25] MEDS: LACTULOSE SYRUP 10GM/15ML (ENULOSE) 30ML UDC PO SCH ×2 (08:10→22:34)
[2017-04-25] MEDS: ENALAPRIL 5 MG (VASOTEC) TAB PO SCH (08:10)
[2017-04-25] MEDS: MICONAZOLE 2% POWDER (DESENEX AF) 90 GM TOP SCH ×2 (08:11→22:35)
[2017-04-25] MEDS: TRIAMCINOLONE 0.1% CR (KENALOG) 15 GM TUBE TOP SCH ×2 (08:12→22:35)
[2017-04-25] MEDS: NYSTATIN CREAM (MYCOSTATIN) 30 GM TUBE TP SCH ×3 (08:12→22:35)
[2017-04-25] MEDS: A & D OINT 60 GM TUBE TP SCH ×2 (08:12→22:35)
[2017-04-25] MEDS: KCL 10 MEQ TAB (MICRO K) PO SCH ×2 (12:04→17:57)
[2017-04-25] MEDS: HYDROXYCHLOROQUINE 200 MG (PLAQUENIL) TAB PO SCH ×2 (12:08→17:57)
--- NOTE | 2017-04-25 12:55 | Progress Note-Hospitalist ---
Progress Note Progress Notes/Assess & Plan Date Seen 04/25/17 Time Seen by Provider: 12:30 Diagonsis/Assessment & Plan Pt doing well Walking well with PT No BM and requests more meds. + flatus but no abdominal pain Ready for DC tomorrow Checked meds. 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
[2017-04-25] MEDS ORDERED: BISACODYL 10 MG SUPP (DULCOLAX) PR ONE (13:00)
[2017-04-25 15:30] VITALS: BP 152/67
[2017-04-25 18:08] VITALS: BP 131/65
[2017-04-25] MEDS: GABAPENTIN 300 MG (NEURONTIN) CAP PO SCH (22:34)
[2017-04-25] MEDS: PANTOPRAZOLE 40 MG (PROTONIX) TAB PO SCH (22:34)
[2017-04-26] MEDS: MEROPENEM 500 MG in NS (IVPB) 100 ML IV SCH ×3 (00:18→11:45)
[2017-04-26] MEDS: RT-ALBUTEROL/IPRATROPIUM 3 ML (DUONEB) VIAL INH SCH ×2 (03:02→09:00)
[2017-04-26 06:29] VITALS: BP 113/56
[2017-04-26] MEDS: MICONAZOLE 2% POWDER (DESENEX AF) 90 GM TOP SCH (09:41)
[2017-04-26] MEDS: TRIAMCINOLONE 0.1% CR (KENALOG) 15 GM TUBE TOP SCH (09:41)
[2017-04-26] MEDS: A & D OINT 60 GM TUBE TP SCH (09:42)
[2017-04-26] MEDS: DULoxetine 30 MG (CYMBALTA) CAP PO SCH (09:42)
[2017-04-26] MEDS: NYSTATIN CREAM (MYCOSTATIN) 30 GM TUBE TP SCH ×2 (09:42→11:49)
[2017-04-26] MEDS: LACTULOSE SYRUP 10GM/15ML (ENULOSE) 30ML UDC PO SCH (09:42)
[2017-04-26] MEDS: CARVEDILOL 12.5 MG (COREG) TABLET PO SCH (09:42)
[2017-04-26] MEDS: BUMETANIDE 1 MG (BUMEX) TAB PO SCH (09:42)
[2017-04-26] MEDS: CLOPIDOGREL 75 MG (PLAVIX) TABLET PO SCH (09:43)
[2017-04-26] MEDS: ENALAPRIL 5 MG (VASOTEC) TAB PO SCH (09:43)
[2017-04-26] MEDS: LORATADINE (CLARITIN) 10 MG TAB PO SCH (09:43)
--- NOTE | 2017-04-26 11:26 | Progress Note-Hospitalist ---
Standard Progress Note Progress Notes/Assess & Plan Date Seen 04/26/17 Time Seen by Provider: 11:21 Assess & Plan/Chief Complaint The patient is a 71-year-old white female known to me. She had an inpatient course of antibiotics early in the month of March. She was then discharged back to her previous assisted living status. She was out for about 2 weeks and then returned with recurrent complaints. She has now completed a course of meropenem. She feels much better and is ready for discharge. She is chronically on O2 by nasal cannula. Physical exam: She is sitting up in bed. She is alert and pleasant. Lungs show distant breath sounds but are clear. CV is regular. Abdomen is obese. Extremities show no pedal edema. Impression: Recurrent pneumonia and now resolved. 2 COPD. Plan: Return to assisted living at [facility] RUTHANN CUEVAS MD Apr 26, 2017 11:26
--- NOTE | 2017-04-26 11:39 | Therapy Team Discharge Summary ---
Therapy Discharge Summary Discharge Recommendations Date of Discharge Therapy D/C Recommendations: Assisted Living, Occupational Therapy Home Care Physical Therapy Patient has attained all functional goals and will dismiss to AL on this date. Patient has progressed with treatment plan and is currently at [facility] independent F with all gross motor skills. Patient has no concerns with returning to [place]. PT to dismiss patient from services at this time. Occupational Therapy Decreased Activ Tolerance, Decreased UE Strength, Dependent Transfers, Impaired Funct Balance, Impaired I ADL's, Impaired Self-Care Skills, Restricted Funct UE ROM PT Intermediate Goals Egg Producer Goals PT Intermediate Goals Time Frame: May 07, 2017 Transfers (B,C,W/C) (FIM): 6 (met 04/25/17) Sit to Lying (QC): 6 (met 04/25/17) Lying-Sitting on Side/Bed(QC): 6 (met 04/25/17) Sit to Stand (QC): 6 (met 04/25/17) Rollin (met 04/25/17) Chair/Zok-le-Onhwi Xfer(QC): 6 (met 04/25/17) Does the Patient Walk: Yes Gait (FIM): 6 (met 04/25/17) Gait distance (FIM): 3=150 ft Distance: 250' Walk 50ft with 2 Turns (QC): 6 (met 04/25/17) Walk 150 ft (QC): 6 (met 04/25/17) Gait Level of Assist: 6 (met 04/25/17) Gait Assistive Device: FWW OT Intermediate Goals Egg Producer Goals Time Frame: Apr 29, 2017 Eating (FIM): 6 Eating (QC): 6 Groomin Oral Hygiene (QC): 6 Bathing(FIM): 4 Upper Body Dressing(FIM): 6 Lower Body Dressing(FIM): 4 Toileting(FIM): 5 Toileting Hygiene (QC): 5 Transfers (B,C,W/C) (FIM): 5 Toilet/Commode Transfer(FIM): 5 Toilet/Commode Transfer (QC): 5 Shower Transfer(FIM): 5 Additional Goals: 1-Demonstrate ADL Tasks, 2-Verbalize Understanding, 3- ImproveStrength/[place]akes[place] 1=Demonstrate adherence to instructed precautions during ADL tasks. 2=Patient will verbalize/demonstrate understanding of assistive devices/ modifications for ADL. 3=Patient will improve strength/tolerance for activity to enable patient to perform ADL's. GARO NICK PT Apr 26, 2017 11:39
--- NOTE | 2017-04-26 11:41 | Discharge Instructions ---
Discharge Instructions Patient Instructions Patient Instructions: Resume medications as described in the discharge sequence. Diet as before. Activities as before. Oxygen by nasal cannula as before. [facility] Decline in condition. Activity & Diet Discharge Diet: Regular Diet Activity as Tolerated: Yes RUTHANN CUEVAS MD Apr 26, 2017 11:41
[2017-04-26] MEDS: KCL 10 MEQ TAB (MICRO K) PO SCH (11:45)
[2017-04-26] MEDS: HYDROXYCHLOROQUINE 200 MG (PLAQUENIL) TAB PO SCH (11:46)
--- NOTE | 2017-04-26 13:29 | Therapy Team Discharge Summary ---
Therapy Discharge Summary Discharge Recommendations Date of Discharge 04-26-17 Therapy D/C Recommendations: Assisted Living, Occupational Therapy Home Care Occupational Therapy Pt. seen for OT evaluation and treatment to assess and increase overall strength and independence with daily activities. Pt. required mod/max assist with LE bathing and dressing. Tolerated treatment well with rest breaks and assist. Pt. does state that she [facility] tasks, and will continue to receive assistance. Pt. did not meet goals as she was evaluated and seen once for UE exercises before discharge back to facility. Decreased Activ Tolerance, Decreased UE Strength, Dependent Transfers, Impaired Funct Balance, Impaired I ADL's, Impaired Self-Care Skills, Restricted Funct UE ROM PT Emergency Detail Driver Goals Emergency Detail Driver Goals PT Senior Living Goals Time Frame: May 07, 2017 Transfers (B,C,W/C) (FIM): 6 (met 04/25/17) Sit to Lying (QC): 6 (met 04/25/17) Lying-Sitting on Side/Bed(QC): 6 (met 04/25/17) Sit to Stand (QC): 6 (met 04/25/17) Rollin (met 04/25/17) Chair/Cfr-uy-Mqryy Xfer(QC): 6 (met 04/25/17) Does the Patient Walk: Yes Gait (FIM): 6 (met 04/25/17) Gait distance (FIM): 3=150 ft Distance: 250' Walk 50ft with 2 Turns (QC): 6 (met 04/25/17) Walk 150 ft (QC): 6 (met 04/25/17) Gait Level of Assist: 6 (met 04/25/17) Gait Assistive Device: FWW OT Emergency Detail Driver Goals Senior Living Goals Time Frame: Apr 29, 2017 Eating (FIM): 6 (met) Eating (QC): 6 (met) Groomin (not met) Oral Hygiene (QC): 6 (not met) Bathing(FIM): 4 (not met) Upper Body Dressing(FIM): 6 (not met) Lower Body Dressing(FIM): 4 (not met) Toileting(FIM): 5 (not met) Toileting Hygiene (QC): 5 (not met) Transfers (B,C,W/C) (FIM): 5 (not met) Toilet/Commode Transfer(FIM): 5 (not met) Toilet/Commode Transfer (QC): 5 (not met) Shower Transfer(FIM): 5 (not met) Additional Goals: 1-Demonstrate ADL Tasks, 2-Verbalize Understanding, 3- ImproveStrength/[place] 1=Demonstrate adherence to instructed precautions during ADL tasks. 2=Patient will verbalize/demonstrate understanding of assistive devices/ modifications for ADL. 3=Patient will improve strength/tolerance for activity to enable patient to perform ADL's. SELMA MAURICIO OT Apr 26, 2017 13:29
[2017-04-26 15:03] VITALS: BP 113/56
== END 2017-04-26 15:19 | DRG 689 ==
LOC: 4TH 10:12
PROVIDERS: ADMIT Internal Medicine; ATTEND Internal Medicine
DX: N30.00 Acute cystitis without hematuria (principal); N17.9 Acute kidney failure, unspecified; E87.1 Hypo-osmolality and hyponatremia; G93.40 Encephalopathy, unspecified; J44.9 Chronic obstructive pulmonary disease, unspecified; I12.9 Hypertensive chronic kidney disease with stage 1 through stage 4 chronic kidney disease, or unspecified chronic kidney disease; N18.9 Chronic kidney disease, unspecified; E11.40 Type 2 diabetes mellitus with diabetic neuropathy, unspecified; E66.01 Morbid (severe) obesity due to excess calories; Z68.41 Body mass index [BMI] 40.0-44.9, adult; K21.9 Gastro-esophageal reflux disease without esophagitis; G47.30 Sleep apnea, unspecified; I89.0 Lymphedema, not elsewhere classified; D63.8 Anemia in other chronic diseases classified elsewhere; G25.81 Restless legs syndrome; M34.1 CR(E)ST syndrome; E11.51 Type 2 diabetes mellitus with diabetic peripheral angiopathy without gangrene; E78.5 Hyperlipidemia, unspecified; B96.20 Unspecified Escherichia coli [E. coli] as the cause of diseases classified elsewhere; Z99.81 Dependence on supplemental oxygen; Z95.820 Peripheral vascular angioplasty status with implants and grafts; K59.00 Constipation, unspecified
CPT/HCPCS: 36415; 80053; 85025; 94640; 94664; 94760

== ENCOUNTER → 2017-05-13 | Outpatient (CLI) | payer MEDICARE, OTHER ==
--- NOTE | 2017-05-13 13:02 | Diagnostic Imaging Report ---
INDICATION: Fall with tailbone pain. TIME OF EXAM: 12:46 PM FINDINGS: Three views of the lumbar spine were obtained. Extensive posterior instrumented fusion throughout the lumbar spine is seen. There appear to be spinal fixation rods extending from the lower thoracic spine throughout the lumbar spine. There may be osseous fusion at the L5-S1 level. Extensive posterior bone graft is present. Vertebral body heights are maintained. No acute compression fracture is seen. The hardware appears to be intact without fracture. Extensive decompression laminectomy throughout the lumbar spine is noted. The aorta is heavily calcified. IMPRESSION: Extensive lumbar spine surgery. No acute fracture or complicating feature is detected. Dictated by: Dictated on workstation # [id number]
--- NOTE | 2017-05-13 13:06 | Diagnostic Imaging Report ---
INDICATION: Fall with tailbone pain. TIME OF EXAM: 12:50 PM FINDINGS: There is questionable cortical irregularity involving the posterior aspect of the coccyx near the junction with the sacrum suspicious for fracture. No displacement is seen. Coccyx is poorly visualized on the AP view. SI joints are not widened. The rami appear intact. IMPRESSION: Findings suspicious for coccyx fracture without evidence of significant displacement. Dictated by: Dictated on workstation # [id number]
== END ==
LOC: RAD 11:41
PROVIDERS: ATTEND Internal Medicine
DX: M54.5 Low back pain (principal); W19.XXXA Unspecified fall, initial encounter
CPT/HCPCS: 72100; 72220

== ENCOUNTER 2017-11-14 13:49 | Emergency (ER) | payer MEDICARE, OTHER ==
[~2017-11-14] VITALS: Ht 162.6 cm; Wt 121.6 kg
[~2017-11-14 13:49] MED LIST changes: -IPRA3AMP NEB; +IPRA3AMP31 NEB
--- NOTE | 2017-11-14 14:13 | ED Lower Extremity ---
General Chief Complaint: Lower Extremity Stated Complaint: BILAT LEG SWELLING Source: patient, family Exam Limitations: no limitations History of Present Illness Date Seen by Provider: Nov 14, 2017 Time Seen by Provider: 14:10 Initial Comments To ER from assisted living accompanied by her daughters with reports of persistent lower extremity swelling bilaterally and increased redness for a few days. She saw Dr. Parada in primary care clinic last week for this and she was not terribly alarmed by it, however the patient reports no improvement in symptoms. She denies fevers chills, she denies shortness of breath or cough. She states that she has been sitting in her recliner with her foot rest up and even last night in bed with several pillows beneath each of her legs which failed to improve the swelling. She does have a bruise to the distal aspect dorsally of the left forefoot. No known injury. Onset: last week Severity: moderate Method of Injury: unknown Allergies and Home Medications Allergies Coded Allergies: NSAIDS (Non-Steroidal Anti-Inflamma (Unverified Allergy, Mild, 03/18/09) Penicillins (Verified Allergy, Unknown, 01/03/06) Sulfa (Sulfonamide Antibiotics) (Verified Allergy, Unknown, 01/03/06) aspirin (Verified Allergy, Unknown, 01/03/06) carbamazepine (Verified Allergy, Unknown, 09/20/06) cephalexin (Verified Allergy, Unknown, 01/03/06) iodine (Verified Allergy, Unknown, 01/03/06) latex (Unverified Allergy, Unknown, 06/21/13) Home Medications Bumetanide 2 Mg Tablet, 2 MG PO Q48H, (Reported) ALTERNATES WITH METOLAZONE Carvedilol 12.5 Mg Tablet, 12.5 MG PO BID, (Reported) Cetirizine HCl 10 Mg Tablet, 10 MG PO DAILY, (Reported) Cholecalciferol (Vitamin D3) 2,000 Unit Capsule, 2,000 UNIT PO HS, (Reported) Clopidogrel Bisulfate 75 Mg Tablet, 75 MG PO DAILY, (Reported) Duloxetine HCl 60 Mg Capsule.dr, 60 MG PO DAILY, (Reported) Enalapril Maleate 5 Mg Tablet, 2.5 MG PO DAILY, (Reported) TAKES 1/2 (5MG) TABLET Esomeprazole Magnesium 40 Mg Cap, 40 MG PO HS, (Reported) Fluticasone Propionate 16 Gm Prosper.susp, 1 SPRAY NS DAILY PRN for ALLERGIES, ( Reported) Fluticasone/Salmeterol 1 Each Blst.w.dev, 1 PUFF IH BID, (Reported) Gabapentin 300 Mg Capsule, 300 MG PO HS, (Reported) Guaifenesin/Codeine Phosphate 473 Ml Liquid, 5 ML PO Q6H PRN for COUGH, ( Reported) Guaifenesin/Dextromethorphan 5 Ml Syrup, 5 ML PO Q6H PRN for COUGH, (Reported) Hydrocortisone Butyrate 15 Gm Cream..g., TP BID PRN for INFLAMMATION, (Reported) Hydroxychloroquine Sulfate 200 Mg Tablet, 200 MG PO 1200,1700, (Reported) Ipratropium/Albuterol Sulfate 3 Ml Ampul.neb, 3 ML NEB TID PRN for SHORTNESS OF BREATH, (Reported) Menthol/Lanolin/Calamine/Znox 71 Gm Oint, TP UD PRN for IRRITATION, (Reported) APPLY TO JARETT AREA Metolazone 5 Mg Tablet, 5 MG PO Q48H, (Reported) ALTERNATES WITH BUMETANIDE Oxycodone HCl 20 Mg Tablet, 20 MG PO Q6H PRN for PAIN-SEVERE, (Reported) Potassium Chloride 10 Meq Capsule.er, 20 MEQ PO 1200,1700, (Reported) TAKES 2 (10MEQ) CAPSULES Simvastatin 20 Mg Tablet, 20 MG PO HS, (Reported) Vitamin A & D 60 Gm Oint, TP DAILY PRN, (Reported) APPLY TO BLE & FEET Patient Home Medication List Home Medication List Reviewed: Yes Review of Systems Constitutional: see HPI; No chills, No fever EENTM: see HPI Respiratory: no symptoms reported Cardiovascular: no symptoms reported Genitourinary: no symptoms reported Musculoskeletal: see HPI Skin: see HPI Psychiatric/Neurological: No Symptoms Reported Past Kmqectg-[id number]-Peekzy Hx Patient Social History Type Used: Cigarettes Former Smoker, Quit: Mar 25, 1994 2nd Hand Smoke Exposure: No Recent Foreign Travel: No Contact w/Someone Who Travel: No Recent Hopitalizations: Yes (PNEUMONIA 04/01/17) Immunizations Up To Date Tetanus Booster (TDap): Unknown PED Vaccines UTD: No Date of Pneumonia Vaccine: Feb 24, 2011 Seasonal Allergies Seasonal Allergies: No Past Medical History Surgeries: Yes (MULT KNEE, BACK FUSION, NASAL SURGERY, ROTATOR CUFF REPAIR, RT BREAST L) Adenoidectomy, Appendectomy, Hysterectomy, Lumpectomy, Orthopedic, Tonsillectomy , Tubal Ligation Respiratory: Yes Asthma, Sleep Apnea, COPD Currently Using CPAP: Yes Cardiac: Yes (CHF) Chronic Edema/Swelling, High Cholesterol, Hypertension Neurological: Yes Neuropathy Reproductive Disorders: No Female Reproductive Disorders: Denies Sexually Transmitted Disease: No HIV/AIDS: No Genitourinary: Yes (chronic kidney dz) Renal Failure Gastrointestinal: Yes Gastroesophageal Reflux, Gall Bladder Disease Musculoskeletal: Yes (KNEE SURGERIES, BACK SURGERY) Degenerate Disk Disease, Arthritis, Rheumatoid Arthritis, Chronic Back Pain Endocrine: No Loss of Vision: Bilateral Hearing Impairment: Denies Cancer: Yes Breast Psychosocial: Yes Anxiety, Depression Integumentary: No Blood Disorders: Yes (IMMUNOGLOBULIN DEFICIENCY) Adverse Reaction/Blood Tranf: No Family Medical History Cancer G8 SISTER Congestive heart failure 19 FATHER Family history: Cardiovascular disease 19 FATHER 19 MOTHER G8 BROTHER Family history: Coronary thrombosis 19 FATHER 19 MOTHER Family history: Hypertension 19 MOTHER Stroke 19 MOTHER G8 BROTHER No Pertinent Family Hx Physical Exam Vital Signs Vital Signs - First Documented 11/14/17 14:05 Temp 98.0 Pulse 74 Resp 16 B/P (MAP) 149/70 (96) Pulse Ox 94 O2 Delivery Room Air Capillary Refill : Height, Weight, BMI Height: 5'6.00" Weight: 280lbs. 0.0oz. 127.960354cy; 45.1 BMI Method:Estimated General Appearance: WD/WN, no apparent distress, other (she is alert and oriented to person place time and situation recalls all events and is pleasant.) HEENT: PERRL/EOMI, normal ENT inspection Neck: non-tender, full range of motion Respiratory: no respiratory distress, no accessory muscle use Hips: bilateral hip non-tender, bilateral hip normal inspection, bilateral hip normal range of motion Legs: bilateral leg non-tender, bilateral leg other (bilateral lower extremities are markedly swollen with circumferential slight erythema, thickening of the skin consistent with past history of venous stasis dermatitis and chronic lymphedema, no weeping or open wounds at this time.) Knees: bilateral knee non-tender, bilateral knee normal inspection, bilateral knee normal range of motion Ankles: bilateral ankle non-tender, bilateral ankle normal inspection, bilateral ankle normal range of motion Feet: left foot other (there is a small bruise to the dorsal aspect of the forefoot at the third fourth and fifth MTP joints) Neurologic/Psychiatric: alert, normal mood/affect, oriented x 3 Skin: normal color, warm/dry Progress/Results/Core Measures Results/Orders Lab Results Laboratory Tests Test 11/14/17 14:15 Range/Units White Blood Count 6.5 4.3-11.0 10^3/uL Red Blood Count 3.57 L 4.35-5.85 10^6/uL Hemoglobin 10.6 L 11.5-16.0 G/DL Hematocrit 34 L 35-52 % Mean Corpuscular Volume 95 80-99 FL Mean Corpuscular Hemoglobin 30 25-34 PG Mean Corpuscular Hemoglobin Concent 31 L 32-36 G/DL Red Cell Distribution Width 14.6 H 10.0-14.5 % Platelet Count 174 130-400 10^3/uL Mean Platelet Volume 10.8 H 7.4-10.4 FL Neutrophils (%) (Auto) 62 42-75 % Lymphocytes (%) (Auto) 22 12-44 % Monocytes (%) (Auto) 11 0-12 % Eosinophils (%) (Auto) 5 0-10 % Basophils (%) (Auto) 1 0-10 % Neutrophils # (Auto) 4.0 1.8-7.8 X 10^3 Lymphocytes # (Auto) 1.4 1.0-4.0 X 10^3 Monocytes # (Auto) 0.7 0.0-1.0 X 10^3 Eosinophils # (Auto) 0.3 0.0-0.3 10^3/uL Basophils # (Auto) 0.0 0.0-0.1 10^3/uL Sodium Level 141 135-145 MMOL/L Potassium Level 4.0 3.6-5.0 MMOL/L Chloride Level 103 98-107 MMOL/L Carbon Dioxide Level 32 21-32 MMOL/L Anion Gap 6 5-14 MMOL/L Blood Urea Nitrogen 16 7-18 MG/DL Creatinine 1.02 0.60-1.30 MG/DL Estimat Glomerular Filtration Rate 53 BUN/Creatinine Ratio 16 Glucose Level 114 H 70-105 MG/DL Lactic Acid Level 0.87 0.50-2.00 MMOL/L Calcium Level 9.4 8.5-10.1 MG/DL Corrected Calcium 9.6 8.5-10.1 MG/DL Total Bilirubin 0.9 0.1-1.0 MG/DL Aspartate Amino Transf (AST/SGOT) 19 5-34 U/L Alanine Aminotransferase (ALT/SGPT) 9 0-55 U/L Alkaline Phosphatase 62 40-136 U/L B-Type Natriuretic Peptide 97.9 <100.0 PG/ML Total Protein 6.5 6.4-8.2 GM/DL Albumin 3.8 3.2-4.5 GM/DL My Orders Orders - ROE BAUTISTA EDUCATIONAL AIDE Cbc With Automated Diff (11/14/17 13:52) Comprehensive Metabolic Panel (11/14/17 13:52) Iv Heplock-Insert (Order) (11/14/17 13:52) Blood Culture (11/14/17 13:52) Lactic Acid Analyzer (11/14/17 13:52) BNP (11/14/17 14:09) Foot, Left, 3 Views (11/14/17 14:58) Vital Signs/I&O 11/14/17 11/14/17 14:05 15:29 Temp 98.0 98.0 Pulse 74 74 Resp 16 16 B/P (MAP) 149/70 (96) 140/71 (96) Pulse Ox 94 94 O2 Delivery Room Air Departure Impression Primary Impression: Lymphedema Additional Impression: Venous stasis Disposition: 01 HOME, SELF-CARE Condition: Stable Departure-Patient Inst. Decision time for Depature: 14:57 Referrals: SIENNA PARADA DO (PCP/Family) Primary Care Physician Patient Instructions: Lymphedema Add. Discharge Instructions: 1. Elevate her feet as much as possible 2. Follow-up with Dr. Parada later this week 3. All discharge instructions reviewed with patient and/or family. Voiced understanding. Copy Copies To 1: SIENNA PARADA PETER J APRN Nov 14, 2017 14:13
[2017-11-14 14:35] LABS: BASOPHILS % (AUTO) 1 % (0-10); EOSINOPHILS # (AUTO) 0.3 10^3/uL (0.0-0.3); EOSINOPHILS % (AUTO) 5 % (0-10); HEMATOCRIT 34 % (35-52); HEMOGLOBIN 10.6 G/DL (11.5-16.0); LYMPHOCYTES # (AUTO) 1.4 X 10^3 (1.0-4.0); LYMPHOCYTES % (AUTO) 22 % (12-44); MEAN CORPUSCULAR HEMOGLOBIN 30 PG (25-34); MEAN CORPUSCULAR HGB CONC 31 G/DL (32-36); MEAN CORPUSCULAR VOLUME 95 FL (80-99); MEAN PLATELET VOLUME 10.8 FL (7.4-10.4); MONOCYTES # (AUTO) 0.7 X 10^3 (0.0-1.0); MONOCYTES % (AUTO) 11 % (0-12); NEUTROPHILS % (AUTO) 62 % (42-75); PLATELET COUNT 174 10^3/uL (130-400); RED BLOOD COUNT 3.57 10^6/uL (4.35-5.85); RED CELL DISTRIBUTION WIDTH 14.6 % (10.0-14.5); WHITE BLOOD COUNT 6.5 10^3/uL (4.3-11.0)
[2017-11-14 14:53] LABS: ALBUMIN 3.8 GM/DL (3.2-4.5); BILIRUBIN,TOTAL 0.9 MG/DL (0.1-1.0); CALCIUM 9.4 MG/DL (8.5-10.1); CREATININE SERUM 1.02 MG/DL (0.60-1.30); TOTAL PROTEIN 6.5 GM/DL (6.4-8.2)
--- NOTE | 2017-11-14 15:17 | Diagnostic Imaging Report ---
INDICATION: Bruising between the second through fifth tarsometatarsal joints for one week. Redness and swelling. EXAMINATION: Three views of the left foot were obtained. FINDINGS: No fracture, dislocation or other acute bony abnormality. No osteomyelitis is evident. No mass or foreign body is seen. There is swelling. IMPRESSION: Swelling. No acute bony abnormality is seen. Dictated by: Dictated on workstation # [id number]
--- OUTSIDE RECORDS SUMMARY | 2017-11-14 15:21 | XMS REPORT | Clinical Summary ---
Author Author [facility] Organization [facility] Address Unknown Phone Unavailable Care Team Providers Care House Principal Name Role Phone Bulmaro Byrne MD Unavailable Michelle Messina MD Unavailable Brooks Vu PA-C Unavailable Clare Parada DO PCP Brody Mcintosh MD Unavailable Sheri Aranda MD Unavailable Source Comments Some departments are not documenting in the electronic medical record. If you do not see the information that you expected, contact Release of Information in the Health Information Management department at [phone] for further assistance in locating additional records.[facility] Allergies Active Allergy Reactions Severity Noted [...] Taken Blood Pressure 145/72 01/17/2013 3:21 PM FOUNDATION DRILL OPERATOR HELPER Pulse 101 01/17/2013 3:21 PM FOUNDATION DRILL OPERATOR HELPER Temperature 36.9 C (98.4 F) 01/17/2013 3:21 PM FOUNDATION DRILL OPERATOR HELPER Respiratory Rate 20 01/17/2013 3:21 PM FOUNDATION DRILL OPERATOR HELPER Oxygen Saturation 94% 12/01/2012 11:37 AM CDT Inhaled Oxygen - - Concentration Weight 120.8 kg (266 lb 6.4 oz) 01/17/2013 3:21 PM FOUNDATION DRILL OPERATOR HELPER Height 163.2 cm (5' 4.25") 01/17/2013 3:21 PM FOUNDATION DRILL OPERATOR HELPER Body Mass Index 45.37 01/17/2013 3:21 PM FOUNDATION DRILL OPERATOR HELPER Plan of Treatment Health Maintenance Due Date Last Done Comments PHYSICAL (COMPREHENSIVE) 1952 EXAM PERTUSSIS VACCINE 1956 TETANUS VACCINE 1962 BREAST CANCER SCREENING 1985 COLORECTAL CANCER 06/05/1995 SCREENING SHINGLES RECOMBINANT 06/05/1995 VACCINE (1 of 2) OSTEOPOROSIS SCREENING 2010 PNEUMONIA (PCV13/PPSV23) 2010 VACCINES (1 of 2 - PCV13) INFLUENZA VACCINE 11/22/2017 HEPATITIS C SCREENING Completed 01/17/2013 Results Not on filefrom Last 3 Months
[2017-11-14 15:29] VITALS: BP 140/71
== END 2017-11-14 15:29 | disposition home or self-care (01) ==
LOC: EDUNIT# 13:49 → ER 13:50
DX: I89.0 Lymphedema, not elsewhere classified (principal); I87.8 Other specified disorders of veins; J44.9 Chronic obstructive pulmonary disease, unspecified; I13.0 Hypertensive heart and chronic kidney disease with heart failure and stage 1 through stage 4 chronic kidney disease, or unspecified chronic kidney disease; N18.9 Chronic kidney disease, unspecified; I50.9 Heart failure, unspecified; M06.9 Rheumatoid arthritis, unspecified; E78.00 Pure hypercholesterolemia, unspecified; K21.9 Gastro-esophageal reflux disease without esophagitis; G47.30 Sleep apnea, unspecified; F41.9 Anxiety disorder, unspecified; F32.9 Major depressive disorder, single episode, unspecified; Z88.6 Allergy status to analgesic agent; Z88.0 Allergy status to penicillin; Z82.49 Family history of ischemic heart disease and other diseases of the circulatory system; Z85.3 Personal history of malignant neoplasm of breast; Z88.2 Allergy status to sulfonamides; Z88.1 Allergy status to other antibiotic agents; Z88.8 Allergy status to other drugs, medicaments and biological substances; Z91.040 Latex allergy status; Z91.041 Radiographic dye allergy status; Z79.02 Long term (current) use of antithrombotics/antiplatelets; Z79.51 Long term (current) use of inhaled steroids; Z87.891 Personal history of nicotine dependence; Z87.01 Personal history of pneumonia (recurrent); Z98.1 Arthrodesis status; Z90.89 Acquired absence of other organs; Z90.710 Acquired absence of both cervix and uterus; Z98.51 Tubal ligation status
CPT/HCPCS: 36415; 73630; 80053; 83605; 83880; 85025; 87040

== ENCOUNTER 2018-01-22 10:32 | Inpatient (IN) | payer MEDICARE, OTHER ==
[~2018-01-22] VITALS: Ht 160 cm; Wt 125.7 kg
[2018-01-22] VITALS (10 sets, daily range): BP systolic 131–201; BP diastolic 68–103
--- OUTSIDE RECORDS SUMMARY | 2018-01-22 10:38 | XMS REPORT | Clinical Summary ---
Author Author [facility] Organization [facility] Address Unknown Phone Unavailable Care Team Providers Care Correctional Probation Officer Name Role Phone PCP Unavailable Allergies Not on File Current Medications Not on file Active Problems Not on file Social History Tobacco Use Types Packs/Day Years Used Date Never Assessed Sex Assigned at Date Recorded Not on file Last Filed Vital Signs Not on file Plan of Treatment Not on file Results Not on filefrom Last 3 Months
--- OUTSIDE RECORDS SUMMARY | 2018-01-22 10:38 | XMS REPORT | Clinical Summary ---
Author Author [facility] Organization [facility] Address Unknown Phone Unavailable Care Team Providers Care Concrete Buildings Assembler Name Role Phone Bulmaro Byrne MD Unavailable Michelle Messina MD Unavailable Brooks Vu PA-C Unavailable Clare Parada DO PCP Brody Mcintosh MD Unavailable Sheri Aranda MD Unavailable Source Comments Some departments are not documenting in the electronic medical record. If you do not see the information that you expected, contact Release of Information in the Health Information Management department at [phone] for further assistance in locating additional records.[facility] Allergies Active Allergy Reactions Severity Noted Date [...] Taken Blood Pressure 145/72 01/17/2013 3:21 PM RAILROAD CAR CHECKER Pulse 101 01/17/2013 3:21 PM RAILROAD CAR CHECKER Temperature 36.9 C (98.4 F) 01/17/2013 3:21 PM RAILROAD CAR CHECKER Respiratory Rate 20 01/17/2013 3:21 PM RAILROAD CAR CHECKER Oxygen Saturation 94% 12/01/2012 11:37 AM CDT Inhaled Oxygen - - Concentration Weight 120.8 kg (266 lb 6.4 oz) 01/17/2013 3:21 PM RAILROAD CAR CHECKER Height 163.2 cm (5' 4.25") 01/17/2013 3:21 PM RAILROAD CAR CHECKER Body Mass Index 45.37 01/17/2013 3:21 PM RAILROAD CAR CHECKER Plan of Treatment Health Maintenance Due Date Last Done Comments PHYSICAL (COMPREHENSIVE) 1952 EXAM DTAP/TDAP VACCINES (1 - 06/05/1963 Tdap) BREAST CANCER SCREENING 1985 COLORECTAL CANCER 06/05/1995 SCREENING SHINGLES RECOMBINANT 06/05/1995 VACCINE (1 of 2) OSTEOPOROSIS 2010 SCREENING/MONITORING PNEUMONIA (PCV13/PPSV23) 2010 VACCINES (1 of 2 - PCV13) INFLUENZA VACCINE 09/22/2017 HEPATITIS C SCREENING Completed 01/17/2013 Results Not on filefrom Last 3 Months
[2018-01-22] MEDS ORDERED: NS IV 1000 ML 1,000 ML IV SCH ×2 (11:00→13:45)
[2018-01-22] MEDS ORDERED: RT-ALBUTEROL/IPRATROPIUM 3 ML (DUONEB) VIAL INH ONE (11:00)
--- NOTE | 2018-01-22 11:04 | ED Cough/URI ---
General Chief Complaint: Respiratory Problems Stated Complaint: COUGH X2 DAYS Nursing Triage Note: PT BROUGHT IN BY EMS WITH COMPLAINT OF SOB. PT STATES SHES HAD A COUGH FOR THE LAST 4 DAYS. PER EMS, PTS SPO2 WAS 76% WHEN THEY ARRIVED. PT WAS GIVEN DUONEB BY EMS. Source: patient, EMS Exam Limitations: no limitations History of Present Illness Date Seen by Provider: Jan 22, 2018 Time Seen by Provider: 11:03 Initial Comments This 70-year-old white female presents with increasing cough and shortness of breath for the last 4 days. The patient is a similar presentations in the past secondary to pneumonia. Patient is allergic to cephalosporins and penicillin. Dr. Madera states that meropenem is effective for her pneumonia. Because of her complex pulmonary and cardiovascular history a call was placed to Dr. Andrew and Dr. Carbajal for their assistance in caring for the patient the ICU. Allergies and Home Medications Allergies Coded Allergies: NSAIDS (Non-Steroidal Anti-Inflamma (Unverified Allergy, Mild, 03/18/09) Penicillins (Verified Allergy, Unknown, 01/03/06) Sulfa (Sulfonamide Antibiotics) (Verified Allergy, Unknown, 01/03/06) aspirin (Verified Allergy, Unknown, 01/03/06) carbamazepine (Verified Allergy, Unknown, 09/20/06) cephalexin (Verified Allergy, Unknown, 01/03/06) iodine (Verified Allergy, Unknown, 01/03/06) latex (Unverified Allergy, Unknown, 06/21/13) Home Medications Bumetanide 2 Mg Tablet, 2 MG PO Q48H, (Reported) ALTERNATES WITH METOLAZONE Carvedilol 12.5 Mg Tablet, 12.5 MG PO BID, (Reported) Cetirizine HCl 10 Mg Tablet, 10 MG PO DAILY, (Reported) Cholecalciferol (Vitamin D3) 2,000 Unit Capsule, 2,000 UNIT PO HS, (Reported) Clopidogrel Bisulfate 75 Mg Tablet, 75 MG PO DAILY, (Reported) Duloxetine HCl 60 Mg Capsule.dr, 60 MG PO DAILY, (Reported) Enalapril Maleate 5 Mg Tablet, 2.5 MG PO DAILY, (Reported) TAKES 1/2 (5MG) TABLET Esomeprazole Magnesium 40 Mg Cap, 40 MG PO HS, (Reported) Fluticasone Propionate 16 Gm [place].susp, 1 SPRAY NS DAILY PRN for ALLERGIES, ( Reported) Fluticasone/Salmeterol 1 Each Blst.w.dev, 1 PUFF IH BID, (Reported) Gabapentin 300 Mg Capsule, 300 MG PO HS, (Reported) Guaifenesin/Codeine Phosphate 473 Ml Liquid, 5 ML PO Q6H PRN for COUGH, ( Reported) Guaifenesin/Dextromethorphan 5 Ml Syrup, 5 ML PO Q6H PRN for COUGH, (Reported) Hydrocortisone Butyrate 15 Gm Cream..g., TP BID PRN for INFLAMMATION, (Reported) Hydroxychloroquine Sulfate 200 Mg Tablet, 200 MG PO 1200,1700, (Reported) Ipratropium/Albuterol Sulfate 3 Ml Ampul.neb, 3 ML NEB TID PRN for SHORTNESS OF BREATH, (Reported) Menthol/Lanolin/Calamine/Znox 71 Gm Oint, TP UD PRN for IRRITATION, (Reported) APPLY TO JARETT AREA Metolazone 5 Mg Tablet, 5 MG PO Q48H, (Reported) ALTERNATES WITH BUMETANIDE Oxycodone HCl 20 Mg Tablet, 20 MG PO Q6H PRN for PAIN-SEVERE, (Reported) Potassium Chloride 10 Meq Capsule.er, 20 MEQ PO 1200,1700, (Reported) TAKES 2 (10MEQ) CAPSULES Simvastatin 20 Mg Tablet, 20 MG PO HS, (Reported) Vitamin A & D 60 Gm Oint, TP DAILY PRN, (Reported) APPLY TO BLE & FEET Patient Home Medication List Home Medication List Reviewed: Yes Review of Systems Review of Systems Constitutional: No chills, No fever; malaise, weakness EENTM: No no symptoms reported Respiratory: see HPI, cough, short of breath Cardiovascular: No chest pain, No palpitations Gastrointestinal: No abdominal pain, No diarrhea, No vomiting Genitourinary: no symptoms reported : No Musculoskeletal: no symptoms reported Skin: No rash Psychiatric/Neurological: No Symptoms Reported Hematologic/Lymphatic: No Symptoms Reported Immunological/Allergic: no symptoms reported Past Cekalpw-Cgtqxi-Glvscs Hx Past Med/Social Hx: Reviewed Nursing Past Med/Soc Hx Patient Social History Alcohol Use: Denies Use Recreational Drug Use: No Smoking Status: Former Smoker Type Used: Cigarettes Former Smoker, Quit: Mar 25, 1994 2nd Hand Smoke Exposure: No Recent Foreign Travel: No Contact w/Someone Who Travel: No Recent Infectious Disease Expo: No Recent Hopitalizations: No Immunizations Up To Date Tetanus Booster (TDap): Unknown PED Vaccines UTD: No Date of Pneumonia Vaccine: Feb 24, 2011 Seasonal Allergies Seasonal Allergies: No Past Medical History Surgeries: Yes (MULT KNEE, BACK FUSION, NASAL SURGERY, ROTATOR CUFF REPAIR, RT BREAST L) Adenoidectomy, Appendectomy, Hysterectomy, Lumpectomy, Orthopedic, Tonsillectomy , Tubal Ligation Respiratory: Yes Asthma, Sleep Apnea, COPD Currently Using CPAP: Yes Cardiac: Yes (CHF) Chronic Edema/Swelling, High Cholesterol, Hypertension Neurological: Yes Neuropathy Reproductive Disorders: No Female Reproductive Disorders: Denies Sexually Transmitted Disease: No HIV/AIDS: No Genitourinary: Yes (chronic kidney dz) Renal Failure Gastrointestinal: Yes Gastroesophageal Reflux, Gall Bladder Disease Musculoskeletal: Yes (KNEE SURGERIES, BACK SURGERY) Degenerate Disk Disease, Arthritis, Rheumatoid Arthritis, Chronic Back Pain Endocrine: No Loss of Vision: Bilateral Hearing Impairment: Denies Cancer: Yes Breast Psychosocial: Yes Anxiety, Depression Integumentary: No Blood Disorders: Yes (IMMUNOGLOBULIN DEFICIENCY) Adverse Reaction/Blood Tranf: No Family Medical History Cancer G8 SISTER Congestive heart failure 19 FATHER Family history: Cardiovascular disease 19 FATHER 19 MOTHER G8 BROTHER Family history: Coronary thrombosis 19 FATHER 19 MOTHER Family history: Hypertension 19 MOTHER Stroke 19 MOTHER G8 BROTHER No Pertinent Family Hx Physical Exam Vital Signs - First Documented 01/22/18 01/22/18 10:34 11:18 Temp 98.4 Pulse 70 Resp 20 B/P (MAP) 96/ Pulse Ox 97 O2 Delivery Nasal Cannula O2 Flow Rate 2.00 Capillary Refill : Less Than 3 Seconds Height: 5'3.00" Weight: 250lbs. 0.0oz. [id number]; 45.1 BMI Method:Stated General Appearance: WD/WN, mild distress Eyes: Bilateral Eye Normal Inspection HEENT: normal ENT inspection Neck: full range of motion, supple, normal inspection Respiratory: decreased breath sounds, wheezing Cardiovascular: normal peripheral pulses, regular rate, rhythm Gastrointestinal: normal bowel sounds, non tender, soft Extremities: normal range of motion, non-tender, normal inspection Neurologic/Psychiatric: no motor/sensory deficits, alert, normal mood/affect Skin: normal color, warm/dry Focused Exam Lactate Level 01/22/18 10:51: Lactic Acid Level 0.64 Lactic Acid Level Laboratory Tests Test 01/22/18 10:51 Lactic Acid Level 0.64 MMOL/L (0.50-2.00) Progress/Results/Core Measures Suspected Sepsis Recent Fever Within 48 Hours: No Infection Criteria Present: None New/Unexplained Altered Menta: No Sepsis Screen: No Definite Risk SIRS Temperature:98.4 Pulse: 70 Respiratory Rate: 20 Laboratory Tests 01/22/18 10:51: White Blood Count 5.2 Blood Pressure 96 / Mean: 01/22/18 10:51: Lactic Acid Level 0.64 Laboratory Tests 01/22/18 10:51: Creatinine 0.84, Platelet Count 121L, Total Bilirubin 1.0 Results/Orders Lab Results Laboratory Tests Test 01/22/18 10:51 Range/Units White Blood Count 5.2 4.3-11.0 10^3/uL Red Blood Count 4.02 L 4.35-5.85 10^6/uL Hemoglobin 12.1 11.5-16.0 G/DL Hematocrit 38 35-52 % Mean Corpuscular Volume 95 80-99 FL Mean Corpuscular Hemoglobin 30 25-34 PG Mean Corpuscular Hemoglobin Concent 32 32-36 G/DL Red Cell Distribution Width 14.0 10.0-14.5 % Platelet Count 121 L 130-400 10^3/uL Mean Platelet Volume 10.4 7.4-10.4 FL Neutrophils (%) (Auto) 65 42-75 % Lymphocytes (%) (Auto) 18 12-44 % Monocytes (%) (Auto) 13 H 0-12 % Eosinophils (%) (Auto) 4 0-10 % Basophils (%) (Auto) 1 0-10 % Neutrophils # (Auto) 3.4 1.8-7.8 X 10^3 Lymphocytes # (Auto) 0.9 L 1.0-4.0 X 10^3 Monocytes # (Auto) 0.7 0.0-1.0 X 10^3 Eosinophils # (Auto) 0.2 0.0-0.3 10^3/uL Basophils # (Auto) 0.0 0.0-0.1 10^3/uL Sodium Level 140 135-145 MMOL/L Potassium Level 3.6 3.6-5.0 MMOL/L Chloride Level 100 98-107 MMOL/L Carbon Dioxide Level 31 21-32 MMOL/L Anion Gap 9 5-14 MMOL/L Blood Urea Nitrogen 13 7-18 MG/DL Creatinine 0.84 0.60-1.30 MG/DL Estimat Glomerular Filtration Rate > 60 BUN/Creatinine Ratio 15 Glucose Level 91 70-105 MG/DL Lactic Acid Level 0.64 0.50-2.00 MMOL/L Calcium Level 9.2 8.5-10.1 MG/DL Corrected Calcium 9.5 8.5-10.1 MG/DL Total Bilirubin 1.0 0.1-1.0 MG/DL Aspartate Amino Transf (AST/SGOT) 24 5-34 U/L Alanine Aminotransferase (ALT/SGPT) 15 0-55 U/L Alkaline Phosphatase 61 40-136 U/L Total Protein 6.2 L 6.4-8.2 GM/DL Albumin 3.6 3.2-4.5 GM/DL My Orders Orders - MANE MORA MD Cbc With Automated Diff (01/22/18 11:00) Comprehensive Metabolic Panel (01/22/18 11:00) Chest Pa/Lat (2 View) (01/22/18 11:00) Blood Culture (01/22/18 11:00) Lactic Acid Analyzer (01/22/18 11:00) Ns Iv 1000 Ml (Sodium Chloride 0.9%) (01/22/18 11:00) Albuterol/Ipra Inhalation Soln (Duoneb I (01/22/18 11:00) Svn Small Volume Nebulizer (01/22/18 11:00) Meropenem (Merrem 1000 Mg) (01/22/18 11:15) Methylprednisolone Sod Succ (Solu-Medrol (01/22/18 11:15) Ua Culture If Indicated (01/22/18 11:14) Blood Culture (01/22/18 11:20) Troponin I (01/22/18 12:14) BNP (01/22/18 12:14) Ekg Tracing (01/22/18 12:14) Fibrin Degradation Products (01/22/18 12:14) Medications Given in ED Current Medications Medications Dose Ordered Sig/Jaguar Route Start Time Stop Time Status Last Admin Dose Admin Albuterol/ Ipratropium 3 ml ONCE ONCE INH 01/22/18 11:00 01/22/18 11:03 DC 01/22/18 11:18 3 ML Meropenem 1000 mg/ Sodium Chloride 100 ml @ 200 mls/hr ONCE ONCE IV 01/22/18 11:15 01/22/18 11:44 DC 01/22/18 12:01 200 MLS/HR Methylprednisolone Sodium Succinate 125 mg ONCE ONCE IVP 01/22/18 11:15 01/22/18 11:16 DC 01/22/18 11:27 125 MG Vital Signs/I&O 01/22/18 01/22/18 10:34 11:18 Temp 98.4 Pulse 70 Resp 20 B/P (MAP) 96/ Pulse Ox 97 O2 Delivery Nasal Cannula Nasal Cannula O2 Flow Rate 2.00 2.00 Capillary Refill : Less Than 3 Seconds Progress Note : Time: 12:19 Progress Note The patient's clinical presentation was consistent with pneumonia. Patient received antibiotics and steroids IV. Patient's chest x-ray was suggestive of failure and I ordered an EKG, d-dimer, and BNP. Patient was given 40 mg Lasix IV. Departure Communication (Admissions) Time/Spoke to Admitting Phy: 11:10 Dr. Madera. Time/Spoke to Consulting Phy: 11:15 Drs. Andrew and Raven. Impression Primary Impression: COPD exacerbation Additional Impressions: CHF (congestive heart failure) Qualified Codes: I50.9 - Heart failure, unspecified CAP (community acquired pneumonia) Qualified Codes: J18.9 - Pneumonia, unspecified organism Disposition: ADMITTED INPATIENT Condition: Improved Admissions Decision to Admit Reason: Admit from ER (General) Decision to Admit/Date: Jan 22, 2018 Time/Decision to Admit Time: 12:20 Departure-Patient Inst. Referrals: SIENNA MADERA DO (PCP/Family) Primary Care Physician MANE MORA MD Jan 22, 2018 11:04
[2018-01-22 11:10] LABS: BASOPHILS % (AUTO) 1 % (0-10); EOSINOPHILS # (AUTO) 0.2 10^3/uL (0.0-0.3); EOSINOPHILS % (AUTO) 4 % (0-10); HEMATOCRIT 38 % (35-52); HEMOGLOBIN 12.1 G/DL (11.5-16.0); LYMPHOCYTES # (AUTO) 0.9 X 10^3 (1.0-4.0); LYMPHOCYTES % (AUTO) 18 % (12-44); MEAN CORPUSCULAR HEMOGLOBIN 30 PG (25-34); MEAN CORPUSCULAR HGB CONC 32 G/DL (32-36); MEAN CORPUSCULAR VOLUME 95 FL (80-99); MEAN PLATELET VOLUME 10.4 FL (7.4-10.4); MONOCYTES # (AUTO) 0.7 X 10^3 (0.0-1.0); MONOCYTES % (AUTO) 13 % (0-12); NEUTROPHILS # (AUTO) 3.4 X 10^3 (1.8-7.8); NEUTROPHILS % (AUTO) 65 % (42-75); PLATELET COUNT 121 10^3/uL (130-400); RED BLOOD COUNT 4.02 10^6/uL (4.35-5.85); WHITE BLOOD COUNT 5.2 10^3/uL (4.3-11.0)
[2018-01-22] MEDS ORDERED: MEROPENEM 1,000 MG in NS (IVPB) 100 ML IV ONE (11:15)
[2018-01-22] MEDS ORDERED: methylPREDNISolone 125 MG (Solu-MEDROL) VIAL IVP ONE (11:15)
[2018-01-22 11:25] LABS: ALANINE AMINOTRANSFERASE 15 U/L (0-55); ALBUMIN 3.6 GM/DL (3.2-4.5); ALKALINE PHOSPHATASE 61 U/L (40-136); BUN/CREATININE RATIO 15; CALCIUM 9.2 MG/DL (8.5-10.1); CARBON DIOXIDE 31 MMOL/L (21-32); CHLORIDE 100 MMOL/L (98-107); CREATININE SERUM 0.84 MG/DL (0.60-1.30); GFR ESTIMATED > 60; GLUCOSE 91 MG/DL (70-105); POTASSIUM 3.6 MMOL/L (3.6-5.0); SODIUM 140 MMOL/L (135-145); TOTAL PROTEIN 6.2 GM/DL (6.4-8.2)
--- NOTE | 2018-01-22 12:03 | Diagnostic Imaging Report ---
INDICATION: Shortness of breath and cough. TIME OF EXAM: 12:08 PM Comparison is made with prior chest from 04/01/2017. FINDINGS: Right chest wall port has tip overlying the SVC right atrial junction. The heart size is stable. Surgical clips overlie the mid right lung. There is central congestion but no overt failure. No definite infiltrate, effusion or pneumothorax is seen. Extensive spinal instrumentation lower thoracic and lumbar spine is noted. IMPRESSION: Central congestion. No other significant abnormality is seen. Dictated by: Dictated on workstation # [id number]
[2018-01-22] MEDS ORDERED: FUROSEMIDE 40 MG/4 ML INJ (LASIX) IVP ONE (12:30)
[2018-01-22 12:59] LABS: BILIRUBIN,URINE NEGATIVE (NEGATIVE); CLARITY,URINE VERY CLOUDY; COLOR,URINE YELLOW; GLUCOSE, URINE (UA) NEGATIVE (NEGATIVE); KETONES,URINE NEGATIVE (NEGATIVE); LEUKOCYTE ESTERASE ,URINE 3+ (NEGATIVE); NITRITE,URINE POSITIVE (NEGATIVE); PH,URINE 6.5 (5-9); PROTEIN,URINE 1+ (NEGATIVE); UROBILINOGEN,URINE NORMAL (NORMAL)
[2018-01-22 13:14] LABS: BACTERIA,URINE NEGATIVE /HPF; RBC,URINE 0-2 /HPF; WBC,URINE 50-100 /HPF
[2018-01-22] MEDS ORDERED: RT-ALBUTEROL/IPRATROPIUM 3 ML (DUONEB) VIAL IH PRN (13:45)
--- NOTE | 2018-01-22 13:59 | History & Physical-Hospitalist ---
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 Patient was found to have hypoxia of 79 percent on initial assessment with exacerbation of COPD. Chest x-ray did not show an infiltrate the patient does have a history of ESBL UTI and she does have 50-100 WBCs on the urine specimen so she will be placed on empiric meropenem antibiotic selection and initiate Pulmonology and cardiology consultation. She has seen the lymphedema specialist [facility] in [place] and has had a wonderful and dramatic improvement in that major debilitating condition. Source: patient, RN/MD Exam Limitations: no limitations Date Seen 01/22/18 Time Seen by a Provider: 14:45 Attending Physician Clare Parada DO PCP Clare Parada DO Referring Physician Date of Admission Jan 22, 2018 at 11:20 Home Medications & Allergies Home Medications Reviewed patient Home Medication Reconciliation performed by pharmacy medication reconciliations delivery technician and/or nursing. Patients Allergies have been reviewed. Allergies Allergies Coded Allergies NSAIDS (Non-Steroidal Anti-Inflamma (Unverified Allergy, Mild, 03/18/09) Penicillins (Verified Allergy, Unknown, 01/03/06) Sulfa (Sulfonamide Antibiotics) (Verified Allergy, Unknown, 01/03/06) aspirin (Verified Allergy, Unknown, 01/03/06) carbamazepine (Verified Allergy, Unknown, 09/20/06) cephalexin (Verified Allergy, Unknown, 01/03/06) iodine (Verified Allergy, Unknown, 01/03/06) latex (Unverified Allergy, Unknown, 06/21/13) Past Zzydxzq-Tgqjba-Gdaqtj Hx Past Med/Social Hx: Reviewed Nursing Past Med/Soc Hx, Reviewed and Corrections made Patient Social History Marrital Status: 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) Alcohol Use: Denies Use Recreational Drug Use: No Smoking Status: Former Smoker Former Smoker, Quit: Mar 25, 1994 Type Used: Cigarettes 2nd Hand Smoke Exposure: No Recent Foreign Travel: No Contact w/other who traveled: No Recent Hopitalizations: No Recent Infectious Disease Expo: No Immunizations Up To Date Tetanus Booster (TDap): Unknown Pediatric: No Date of Pneumonia Vaccine: Feb 24, 2011 Seasonal Allergies Seasonal Allergies: No Past Medical History Surgeries: Adenoidectomy, Appendectomy, Hysterectomy, Lumpectomy, Orthopedic, Tonsillectomy, Tubal Ligation Respiratory: COPD, Pneumonia, Sleep Apnea Currently Using CPAP: Yes Cardiac: Chronic Edema/Swelling, High Cholesterol, Hypertension Neurological: Neuropathy Reproductive: No Sexually Transmitted Disease: No HIV/AIDS: No Female Reproductive Disorders: Denies Genitourinary: Renal Failure Gastrointestinal: Gastroesophageal Reflux, Gall Bladder Disease Musculoskeletal: Degenerate Disk Disease, Arthritis, Rheumatoid Arthritis, Chronic Back Pain Loss of Vision: Bilateral Hearing Impairment: Denies Cancer: Breast Psychosocial: Anxiety, Depression History of Blood Disorders: Yes (IMMUNOGLOBULIN DEFICIENCY) Adverse Reaction to Blood Burrell: No Family History Cancer G8 SISTER Congestive heart failure 19 FATHER Family history: Cardiovascular disease 19 FATHER 19 MOTHER G8 BROTHER Family history: Coronary thrombosis 19 FATHER 19 MOTHER Family history: Hypertension 19 MOTHER Stroke 19 MOTHER G8 BROTHER No Pertinent Family Hx Review of Systems Constitutional: see HPI, fever, weakness EENTM: no symptoms reported Respiratory: dyspnea on exertion, short of breath, wheezing Cardiovascular: no symptoms reported Gastrointestinal: no symptoms reported Genitourinary: decreased output, dysuria, hematuria, pain Musculoskeletal: no symptoms reported Skin: no symptoms reported Psychiatric/Neurological: No Symptoms Reported All Other Systems Reviewed Negative Unless Noted: Yes Physical Exam Physical Exam Vital Signs Vital Signs - First Documented 01/22/18 01/22/18 10:34 11:18 Temp 98.4 Pulse 70 Resp 20 B/P (MAP) 96/ Pulse Ox 97 O2 Delivery Nasal Cannula O2 Flow Rate 2.00 Capillary Refill : Less Than 3 Seconds Height, Weight, BMI Height: 5'3.00" Weight: 250lbs. 0.0oz. [id number]; 45.1 BMI Method:Stated General Appearance: WD/WN, Chronically ill, Mild Distress Eyes: Bilateral Eye Normal Inspection, Bilateral Eye PERRL HEENT: PERRL/EOMI, Normal ENT Inspection, Pharynx Normal Neck: Full Range of Motion, Normal Inspection, Non Tender, Supple, Carotid Bruit Respiratory: Chest Non Tender, Accessory Muscle Use, Crackles, Decreased Breath Sounds, Rales, Respiratory Distress, Wheezing Cardiovascular: Regular Rate, Rhythm, No Edema, No Gallop, No JVD, No Murmur, Normal Peripheral Pulses Gastrointestinal: Normal Bowel Sounds, No Organomegaly, No Pulsatile Mass, Non Tender, Soft Back: Normal Inspection, No CVA Tenderness, No Vertebral Tenderness Extremity: Normal Capillary Refill, Normal Inspection, Normal Range of Motion, Non Tender, No Calf Tenderness, No Pedal Edema Neurologic/Psychiatric: Alert, Oriented x3, No Motor/Sensory Deficits, Normal Mood/Affect Skin: Normal Color, Warm/Dry Lymphatic: No Adenopathy Results Results/Procedures Labs Laboratory Tests 01/22/18 10:51 Patient resulted labs reviewed. Assessment/Plan Admission Diagnosis Assessment: Dyspnea with wheezing Exacerbation of COPD History of congestive heart failure with normal BNP today History of acute kidney failure due to diuresis now normal creatinine today History of severe lymphedema dramatic improvement after seeing lymphedema specialist 3 times but hospital in [place] Severe obstructive sleep apnea may need BiPAP Obesity hypoventilation syndrome Hypertension ESBL UTI acute on chronic managed by Dr. Macias Plan: Empiric antibiotic IV steroids Nebs Oxygen Cardiology and pulmonology expertise is appreciated Admission Status: Inpatient Order (span 2 midnights) Reason for Inpatient Admission: Respiratory insufficiency with wheezing and history of severe sleep apnea at high risk for respiratory decompensation Diagnosis/Problems Diagnosis/Problems (1) Infection due to ESBL-producing Escherichia coli Status: Acute (2) Wheezing Status: Acute (3) Lymphedema Status: Chronic (4) VALDO on CPAP Status: Chronic (5) Obesity hypoventilation syndrome Status: Chronic (6) Renal insufficiency Status: Chronic (7) COPD exacerbation Status: Acute (8) Essential (primary) hypertension Status: Chronic CLARE PARADA DO Jan 22, 2018 13:59
--- NOTE | 2018-01-22 14:00 | Consultation-Cardiology ---
HPI-Cardiology Cardiology Consultation Date of Consultation 01/22/18 Date of Admission Time Seen by Provider: 13:56 Indication: Shortness of breath, cough HPI 72 years old lady with history of COPD, was having increasing shortness of breath and cough, low-grade fever. Continue to deteriorate until today when she came to the emergency room for evaluation. She was admitted and being treated for acute exacerbation of COPD and pneumonia. She denied any chest pain. No palpitation. No syncope or near syncopal episodes. No claudications. Home Medications & Allergies Allergies: Coded Allergies: NSAIDS (Non-Steroidal Anti-Inflamma (Unverified Allergy, Mild, 03/18/09) Penicillins (Verified Allergy, Unknown, 01/03/06) Sulfa (Sulfonamide Antibiotics) (Verified Allergy, Unknown, 01/03/06) aspirin (Verified Allergy, Unknown, 01/03/06) carbamazepine (Verified Allergy, Unknown, 09/20/06) cephalexin (Verified Allergy, Unknown, 01/03/06) iodine (Verified Allergy, Unknown, 01/03/06) latex (Unverified Allergy, Unknown, 06/21/13) Home Medication List Reviewed: Yes [id number]-Uhlrwh Hx Patient Social History Marital Status: single Alcohol Use: Denies Use Recreational Drug Use: No Smoking Status: Former Smoker Former smoker/When Quit: Feb 22, 1993 Type Used: Cigarettes 2nd Hand Smoke Exposure: No Recent Foreign Travel: No Recent Infectious Disease Expo: No Recent Hopitalizations: No Immunizations Up To Date Tetanus Booster (TDap): Unknown Date of Pneumonia Vaccine: Feb 24, 2011 Past Medical History Past medical history as described below Family Medical History Significant Family History: No Pertinent Family Hx Family History: Cancer G8 SISTER Congestive heart failure 19 FATHER Family history: Cardiovascular disease 19 FATHER 19 MOTHER G8 BROTHER Family history: Coronary thrombosis 19 FATHER 19 MOTHER Family history: Hypertension 19 MOTHER Stroke 19 MOTHER G8 BROTHER Review of Systems Constitutional: see HPI, fever, malaise, weakness EENTM: see HPI, no symptoms reported Respiratory: see HPI, cough, dyspnea on exertion; No hemoptysis, No orthopnea; phlegm, short of breath; No stridor, No wheezing, No other Cardiovascular: see HPI; No chest pain; edema; No Hx of Intervention, No palpitations, No syncope, No vascular heart diseas, No other Gastrointestinal: no symptoms reported, see HPI Genitourinary: no symptoms reported, see HPI Musculoskeletal: see HPI, joint pain, muscle stiffness, muscle cramps Skin: no symptoms reported, see HPI Psychiatric/Neurological: No Symptoms Reported, See HPI Reviewed Test Results Reviewed Test Results Lab Laboratory Tests Test 01/22/18 10:51 01/22/18 12:52 Range/Units White Blood Count 5.2 4.3-11.0 10^3/uL Red Blood Count 4.02 L 4.35-5.85 10^6/uL Hemoglobin 12.1 11.5-16.0 G/DL Hematocrit 38 35-52 % Mean Corpuscular Volume 95 80-99 FL Mean Corpuscular Hemoglobin 30 25-34 PG Mean Corpuscular Hemoglobin Concent 32 32-36 G/DL Red Cell Distribution Width 14.0 10.0-14.5 % Platelet Count 121 L 130-400 10^3/uL Mean Platelet Volume 10.4 7.4-10.4 FL Neutrophils (%) (Auto) 65 42-75 % Lymphocytes (%) (Auto) 18 12-44 % Monocytes (%) (Auto) 13 H 0-12 % Eosinophils (%) (Auto) 4 0-10 % Basophils (%) (Auto) 1 0-10 % Neutrophils # (Auto) 3.4 1.8-7.8 X 10^3 Lymphocytes # (Auto) 0.9 L 1.0-4.0 X 10^3 Monocytes # (Auto) 0.7 0.0-1.0 X 10^3 Eosinophils # (Auto) 0.2 0.0-0.3 10^3/uL Basophils # (Auto) 0.0 0.0-0.1 10^3/uL D-Dimer 1.14 H 0.00-0.49 UG/ML Sodium Level 140 135-145 MMOL/L Potassium Level 3.6 3.6-5.0 MMOL/L Chloride Level 100 98-107 MMOL/L Carbon Dioxide Level 31 21-32 MMOL/L Anion Gap 9 5-14 MMOL/L Blood Urea Nitrogen 13 7-18 MG/DL Creatinine 0.84 0.60-1.30 MG/DL Estimat Glomerular Filtration Rate > 60 BUN/Creatinine Ratio 15 Glucose Level 91 70-105 MG/DL Lactic Acid Level 0.64 0.50-2.00 MMOL/L Calcium Level 9.2 8.5-10.1 MG/DL Corrected Calcium 9.5 8.5-10.1 MG/DL Total Bilirubin 1.0 0.1-1.0 MG/DL Aspartate Amino Transf (AST/SGOT) 24 5-34 U/L Alanine Aminotransferase (ALT/SGPT) 15 0-55 U/L Alkaline Phosphatase 61 40-136 U/L Troponin I < 0.30 <0.30 NG/ML B-Type Natriuretic Peptide 65.3 <100.0 PG/ML Total Protein 6.2 L 6.4-8.2 GM/DL Albumin 3.6 3.2-4.5 GM/DL Urine Color YELLOW Urine Clarity VERY CLOUDY H Urine pH 6.5 5-9 Urine Specific [place] 1.010 L 1.016-1.022 Urine Protein 1+ H NEGATIVE Urine Glucose (UA) NEGATIVE NEGATIVE Urine Ketones NEGATIVE NEGATIVE Urine Nitrite POSITIVE H NEGATIVE Urine Bilirubin NEGATIVE NEGATIVE Urine Urobilinogen NORMAL NORMAL MG/DL Urine Leukocyte Esterase 3+ H NEGATIVE Urine RBC (Auto) 1+ H NEGATIVE Urine RBC 0-2 /HPF Urine WBC 50-100 H /HPF Urine Squamous Epithelial Cells 5-10 /HPF Urine Crystals NONE /LPF Urine Bacteria NEGATIVE /HPF Urine Casts NONE /LPF Urine Mucus NEGATIVE /LPF Urine Culture Indicated YES Physical Exam Vital Signs Vital Signs - First Documented 01/22/18 01/22/18 10:34 11:18 Temp 98.4 Pulse 70 Resp 20 B/P (MAP) 96/ Pulse Ox 97 O2 Delivery Nasal Cannula O2 Flow Rate 2.00 Capillary Refill : Less Than 3 Seconds Height, Weight, BMI Height: 5'3.00" Weight: 250lbs. 0.0oz. 113.233647ix; 45.1 BMI Method:Stated General Appearance: No Apparent Distress, WD/WN Eyes: Bilateral Eye Normal Inspection, Bilateral Eye PERRL, Bilateral Eye EOMI HEENT: PERRL/EOMI, TMs Normal, Normal ENT Inspection, Pharynx Normal Neck: Full Range of Motion, Normal Inspection, Non Tender, Supple, Carotid Bruit Respiratory: Chest Non Tender, Normal Breath Sounds, No Accessory Muscle Use, No Respiratory Distress, Crackles, Wheezing Cardiovascular: Regular Rate, Rhythm, No Edema, No Gallop, No JVD, No Murmur, Normal Peripheral Pulses Gastrointestinal: Normal Bowel Sounds, No Organomegaly, No Pulsatile Mass, Non Tender, Soft Back: Normal Inspection, No CVA Tenderness, No Vertebral Tenderness Extremity: Normal Capillary Refill, Normal Inspection, Normal Range of Motion, Non Tender, No Calf Tenderness, Other (Trace edema) Neurologic/Psychiatric: Alert, Oriented x3, No Motor/Sensory Deficits, Normal Mood/Affect Skin: Normal Color, Warm/Dry Lymphatic: No Adenopathy A/P-Cardiology Admission Diagnosis Pneumonia Shortness of breath Acute exacerbation of COPD Hypertension Assessment/Plan Pneumonia, acute exacerbation of COPD, admitted and started on treatment. Receiving antibiotic, managed by primary care physician. Nonischemic cardiomyopathy, MUGA scan was done in November 2015 showing ejection fraction 55 percent, previous echocardiogram showing ejection fraction 25-30 percent, no recent workup, planning to evaluate echocardiogram Mild coronary artery disease nonobstructive disease by cardiac catheterization done in May 2014. Continue to monitor at this time. Peripheral arterial disease, history of abdominal aortogram with angiogram to the lower extremities done by Dr. Cosme, reported to good vessel runoff to the lower extremities, medical therapy was recommended, repeat Peripheral runoff showed total occlusion of the anterior tibial artery and both lower extremities with brisk flow. It was done in March 2016, patient was referred by Dr. De Leon to [facility] and had angioplasty and stent done using drug-eluting stent Promus 3.524 mm to the anterior tibial artery on the right side with good results. Reporting healing ulcer. Feeling better. Continue to monitor Peripheral edema, chronic, lymphedema. Better at this time. Receiving therapy in [place], continue to monitor Hypertension, restart home medication monitor blood pressure Moderate bilateral carotid stenosis, ultrasound was done in October 2016. Continue to monitor CREST syndrome, managed by her film replacement orderer. History of multiple back and knee surgeries, continue to monitor Chronic renal insufficiency, seen and established with Dr. Saundra Craig History of elevated liver enzymes, followed by primary care physician Obesity, BMI is 44, patient was educated on weight loss DEVI LONDON MD Jan 22, 2018 14:00
[2018-01-22] MEDS ORDERED: TOLTA4 PO (14:25)
[2018-01-22] MEDS ORDERED: BUME1TAB4 PO (14:25)
[2018-01-22] MEDS ORDERED: ASCO-262 PO (14:25)
[2018-01-22] MEDS ORDERED: NITR-68 PO (14:25)
[2018-01-22] MEDS ORDERED: ALLO100T PO (14:25)
[2018-01-22] MEDS ORDERED: RT-ALBUTEROL/IPRATROPIUM 3 ML (DUONEB) VIAL INH PRN (14:30)
[2018-01-22] MEDS ORDERED: MENTHOL/ZINC OXIDE (CALMOSEPTINE) 113 GM TUBE TP PRN (14:30)
[2018-01-22] MEDS ORDERED: FLUTICASONE NASAL SPRAY (FLONASE) 16 GM BTL NS PRN (14:30)
[2018-01-22] MEDS ORDERED: guaiFENesin/DM (ROBITUSSIN DM) 10 ML UDC PO PRN (15:15)
[2018-01-22] MEDS: RT-ALBUTEROL/IPRATROPIUM 3 ML (DUONEB) VIAL IH SCH ×2 (16:07→19:52)
[2018-01-22] MEDS: MEROPENEM 500 MG in NS (IVPB) 100 ML IV SCH ×2 (17:52→23:27)
[2018-01-22] MEDS: KCL 20 MEQ TAB (K-DUR) PO SCH (17:52)
[2018-01-22] MEDS: HYDROXYCHLOROQUINE 200 MG (PLAQUENIL) TAB PO SCH (17:53)
[2018-01-22] MEDS: methylPREDNISolone 125 MG (Solu-MEDROL) VIAL IV SCH ×2 (17:53→23:27)
[2018-01-22] MEDS ORDERED: RT-ADVAIR HFA 115/21 MCG PER PUFF IH SCH (20:00)
[2018-01-22] MEDS: PANTOPRAZOLE 40 MG (PROTONIX) TAB PO SCH (20:29)
[2018-01-22] MEDS: CARVEDILOL 12.5 MG (COREG) TABLET PO SCH (20:29)
[2018-01-22] MEDS: VITAMIN D3 1,000 UNITS (CHOLECALCIFEROL) TABLET PO SCH (20:29)
[2018-01-22] MEDS: A & D OINT 60 GM TUBE TP SCH (20:30)
[2018-01-22] MEDS: GABAPENTIN 300 MG (NEURONTIN) CAP PO SCH (20:30)
[2018-01-22] MEDS: SIMvastatin 20 MG (ZOCOR) TAB PO SCH (20:30)
[2018-01-22] MEDS ORDERED: hydrALAZINE (APESOLINE) 20 MG/ML VIAL IV ONE (23:15)
[2018-01-22] MEDS ORDERED: meTOprolol 5 MG/5 ML (LOPRESSOR) VIAL IV ONE (23:15)
[2018-01-23] VITALS (14 sets, daily range): BP systolic 118–168; BP diastolic 52–93
[2018-01-23 03:37] LABS: BASOPHILS % (AUTO) 0 % (0-10); EOSINOPHILS % (AUTO) 0 % (0-10); HEMATOCRIT 38 % (35-52); HEMOGLOBIN 12.5 G/DL (11.5-16.0); LYMPHOCYTES # (AUTO) 0.5 X 10^3 (1.0-4.0); LYMPHOCYTES % (AUTO) 16 % (12-44); MEAN CORPUSCULAR HEMOGLOBIN 30 PG (25-34); MEAN CORPUSCULAR HGB CONC 33 G/DL (32-36); MEAN CORPUSCULAR VOLUME 92 FL (80-99); MEAN PLATELET VOLUME 10.5 FL (7.4-10.4); MONOCYTES % (AUTO) 1 % (0-12); NEUTROPHILS # (AUTO) 2.4 X 10^3 (1.8-7.8); NEUTROPHILS % (AUTO) 83 % (42-75); PLATELET COUNT 123 10^3/uL (130-400); RED BLOOD COUNT 4.13 10^6/uL (4.35-5.85); RED CELL DISTRIBUTION WIDTH 13.5 % (10.0-14.5); WHITE BLOOD COUNT 2.9 10^3/uL (4.3-11.0)
[2018-01-23 04:26] LABS: ALANINE AMINOTRANSFERASE 15 U/L (0-55); ALBUMIN 3.4 GM/DL (3.2-4.5); ALKALINE PHOSPHATASE 58 U/L (40-136); BILIRUBIN,TOTAL 0.8 MG/DL (0.1-1.0); BUN/CREATININE RATIO 19; CALCIUM 9.2 MG/DL (8.5-10.1); CARBON DIOXIDE 29 MMOL/L (21-32); CHLORIDE 99 MMOL/L (98-107); CREATININE SERUM 0.81 MG/DL (0.60-1.30); GFR ESTIMATED > 60; GLUCOSE 139 MG/DL (70-105); MAGNESIUM 1.8 MG/DL (1.8-2.4); POTASSIUM 3.6 MMOL/L (3.6-5.0); SODIUM 139 MMOL/L (135-145); TOTAL PROTEIN 6.2 GM/DL (6.4-8.2)
[2018-01-23] MEDS ORDERED: KCL 20 MEQ TAB (K-DUR) PO ONE (05:00)
--- NOTE | 2018-01-23 05:17 | Pulmonary Consultation ---
History of Present Illness History of Present Illness Date of Consultation 01/23/18 05:16 Date of Admission Reason for Visit: Shortness of breath, cough Allergies and Home Medications Allergies Coded Allergies: NSAIDS (Non-Steroidal Anti-Inflamma (Unverified Allergy, Mild, 03/18/09) Penicillins (Verified Allergy, Unknown, 01/03/06) Sulfa (Sulfonamide Antibiotics) (Verified Allergy, Unknown, 01/03/06) aspirin (Verified Allergy, Unknown, 01/03/06) carbamazepine (Verified Allergy, Unknown, 09/20/06) cephalexin (Verified Allergy, Unknown, 01/03/06) iodine (Verified Allergy, Unknown, 01/03/06) latex (Unverified Allergy, Unknown, 06/21/13) Home Medications Allopurinol 100 Mg Tablet, PO DAILY, (Reported) Ascorbate Calcium 500 Mg Tablet, 500 MG PO DAILY, (Reported) Bumetanide 1 Mg Tablet, 1 MG PO DAILY, (Reported) Carvedilol 12.5 Mg Tablet, 12.5 MG PO BID, (Reported) Cetirizine HCl 10 Mg Tablet, 10 MG PO DAILY, (Reported) Cholecalciferol (Vitamin D3) 2,000 Unit Capsule, 2,000 UNIT PO HS, (Reported) Clopidogrel Bisulfate 75 Mg Tablet, 75 MG PO DAILY, (Reported) Duloxetine HCl 60 Mg Capsule.dr, 60 MG PO DAILY, (Reported) Enalapril Maleate 5 Mg Tablet, 2.5 MG PO DAILY, (Reported) TAKES 1/2 (5MG) TABLET Esomeprazole Magnesium 40 Mg Cap, 40 MG PO HS, (Reported) Fluticasone Propionate 16 Gm [place].susp, 1 SPRAY NS DAILY PRN for ALLERGIES, ( Reported) Fluticasone/Salmeterol 1 Each Blst.w.dev, 1 PUFF IH BID, (Reported) Gabapentin 300 Mg Capsule, 300 MG PO HS, (Reported) Guaifenesin/Dextromethorphan 5 Ml Syrup, 5 ML PO Q6H PRN for COUGH, (Reported) Hydrocortisone Butyrate 15 Gm Cream..g., TP BID PRN for INFLAMMATION, (Reported) Hydroxychloroquine Sulfate 200 Mg Tablet, 200 MG PO 1200,1700, (Reported) Ipratropium/Albuterol Sulfate 3 Ml Ampul.neb, 3 ML NEB TID PRN for SHORTNESS OF BREATH, (Reported) Menthol/Lanolin/Calamine/Znox 71 Gm Oint, TP UD PRN for IRRITATION, (Reported) APPLY TO JARETT AREA Nitrofurantoin Macrocrystal 100 Mg Capsule, 100 MG PO DAILY, (Reported) Oxycodone HCl 20 Mg Tablet, 20 MG PO Q6H PRN for PAIN-SEVERE, (Reported) Potassium Chloride 10 Meq Capsule.er, 20 MEQ PO 1200,1700, (Reported) TAKES 2 (10MEQ) CAPSULES Simvastatin 20 Mg Tablet, 20 MG PO HS, (Reported) Tolterodine Tartrate 4 Mg Cap, 4 MG PO DAILY, (Reported) Vitamin A & D 60 Gm Oint, TP DAILY PRN, (Reported) APPLY TO BLE & FEET Past Nwisnpc-Fwwkpm-Zudned Hx Past Med/Social Hx: Reviewed Nursing Past Med/Soc Hx, Reviewed and Corrections made Patient Social History Alcohol Use: Denies Use Recreational Drug Use: No Smoking Status: Former Smoker Type Used: Cigarettes Former Smoker, Quit: Mar 25, 1994 2nd Hand Smoke Exposure: No Recent Foreign Travel: No Contact w/Someone Who Travel: No Recent Infectious Disease Expo: No Recent Hopitalizations: No Immunizations Up To Date Tetanus Booster (TDap): Unknown PED Vaccines UTD: No Date of Pneumonia Vaccine: Feb 24, 2011 Seasonal Allergies Seasonal Allergies: No Past Medical History Surgeries: Yes (MULT KNEE, BACK FUSION, NASAL SURGERY, ROTATOR CUFF REPAIR, RT BREAST L) Adenoidectomy, Appendectomy, Hysterectomy, Lumpectomy, Orthopedic, Tonsillectomy , Tubal Ligation Respiratory: Yes Asthma, Sleep Apnea, COPD Currently Using CPAP: Yes Cardiac: Yes (CHF) Chronic Edema/Swelling, High Cholesterol, Hypertension Neurological: Yes Neuropathy Reproductive Disorders: No Female Reproductive Disorders: Denies Sexually Transmitted Disease: No HIV/AIDS: No Genitourinary: Yes (chronic kidney dz) Renal Failure Gastrointestinal: Yes Gastroesophageal Reflux, Gall Bladder Disease Musculoskeletal: Yes (KNEE SURGERIES, BACK SURGERY) Degenerate Disk Disease, Arthritis, Rheumatoid Arthritis, Chronic Back Pain Endocrine: No Loss of Vision: Bilateral Hearing Impairment: Denies Cancer: Yes Breast Did You Recieve Any Treatments: No What Type of Treatment Did You: Surgical Intervention Psychosocial: Yes Anxiety, Depression Integumentary: No Blood Disorders: Yes (IMMUNOGLOBULIN DEFICIENCY) Adverse Reaction/Blood Tranf: No Family Medical History Cancer G8 SISTER Congestive heart failure 19 FATHER Family history: Cardiovascular disease 19 FATHER 19 MOTHER G8 BROTHER Family history: Coronary thrombosis 19 FATHER 19 MOTHER Family history: Hypertension 19 MOTHER Stroke 19 MOTHER G8 BROTHER No Pertinent Family Hx Sepsis Event Evaluation Height, Weight, BMI Height: 5'3.00" Weight: 250lbs. 0.0oz. 113.177279an; 44.3 BMI Method:Stated Exam Exam Vital Signs Date Time Temp Pulse Resp B/P (MAP) Pulse Ox O2 Delivery O2 Flow Rate FiO2 01/23/18 05:00 73 15 168/93 (118) 96 Nasal Cannula 4.00 01/23/18 04:00 70 25 154/67 (96) 96 Nasal Cannula 4.00 01/23/18 04:00 96 Nasal Cannula 4.00 01/23/18 03:00 69 15 149/68 (95) 94 Nasal Cannula 4.00 01/23/18 02:00 71 17 142/67 (92) 94 Nasal Cannula 4.00 01/23/18 01:00 73 14 127/58 (81) 94 Nasal Cannula 4.00 01/23/18 01:00 73 01/23/18 00:00 96 Nasal Cannula 4.00 01/23/18 00:00 76 16 118/52 (74) 94 Nasal Cannula 4.00 01/22/18 23:00 71 15 157/86 (109) 96 Nasal Cannula 4.00 01/22/18 22:00 72 18 173/87 (115) 97 Nasal Cannula 4.00 01/22/18 21:00 78 17 197/68 (111) 94 Nasal Cannula 4.00 01/22/18 20:00 Nasal Cannula 4.00 01/22/18 20:00 96 Nasal Cannula 4.00 01/22/18 20:00 75 21 195/77 (116) 97 Nasal Cannula 4.00 01/22/18 20:00 97.3 01/22/18 19:52 96 Nasal Cannula 4.00 01/22/18 19:00 80 01/22/18 19:00 79 18 179/85 (116) 93 Nasal Cannula 4.00 01/22/18 18:00 78 14 156/77 (103) 97 Nasal Cannula 4.00 01/22/18 17:00 71 13 170/76 (107) 98 Nasal Cannula 4.00 01/22/18 16:00 74 16 167/69 (101) 92 Nasal Cannula 4.00 01/22/18 15:47 94 NIV Bilevel 2.00 01/22/18 15:04 Nasal Cannula 2.00 01/22/18 15:00 77 23 131/76 (94) 92 Nasal Cannula 2.00 01/22/18 14:00 72 24 154/76 (102) 91 Nasal Cannula 2.00 01/22/18 14:00 98.5 01/22/18 13:25 78 10 182/71 (108) 95 Nasal Cannula 2.00 01/22/18 11:18 97 Nasal Cannula 2.00 01/22/18 10:34 98.4 70 20 96/ Nasal Cannula 2.00 I & O 01/23/18 07:00 Intake Total 1840 ml Balance 1840 ml Height & Weight Height: 5'3.00" Weight: 250lbs. 0.0oz. 113.657321hk; 44.3 BMI Method:Stated General Appearance: No Apparent Distress, WD/WN HEENT: PERRL/EOMI, TMs Normal, Normal ENT Inspection, Pharynx Normal Neck: Full Range of Motion, Normal Inspection, Non Tender, Supple, Carotid Bruit Respiratory: Chest Non Tender, Normal Breath Sounds, No Accessory Muscle Use, No Respiratory Distress, Crackles, Wheezing Cardiovascular: Regular Rate, Rhythm, No Edema, No Gallop, No JVD, No Murmur, Normal Peripheral Pulses Capillary Refill: Less Than 3 Seconds Gastrointestinal: normal bowel sounds, non tender, soft Extremity: Normal Capillary Refill, Normal Inspection, Normal Range of Motion, Non Tender, No Calf Tenderness, Other (Trace edema) Neurologic/Psychiatric: Alert, Oriented x3, No Motor/Sensory Deficits, Normal Mood/Affect Skin: Normal Color, Warm/Dry Lymphatic: No Adenopathy Results Lab Laboratory Tests 01/22/18 10:51 01/23/18 03:30 Assessment/Plan Assessment/Plan COPDAE -SVNS -Change solumedrol to 40 q 6 VALDO with [facility] -Uses home CPAP Chronic lymphadenopathy CKD HX of ESBL and MRSA JORGE DORADO DO Jan 23, 2018 05:17
[2018-01-23] MEDS: methylPREDNISolone 125 MG (Solu-MEDROL) VIAL IV SCH (05:18)
[2018-01-23] MEDS: MEROPENEM 500 MG in NS (IVPB) 100 ML IV SCH ×4 (05:19→23:31)
[2018-01-23] MEDS ORDERED: MAGNESIUM 1 GM/100 ML IVPB 100 ML IV SCH (06:00)
[2018-01-23] MEDS ORDERED: KCL 20 MEQ TAB (K-DUR) PO SCH (06:00)
[2018-01-23] MEDS ORDERED: POTASSIUM CL 10MEQ/50ML IVPB 50 ML IV SCH (06:00)
[2018-01-23] MEDS: RT-ALBUTEROL/IPRATROPIUM 3 ML (DUONEB) VIAL IH SCH ×4 (06:51→18:28)
--- NOTE | 2018-01-23 07:05 | Diagnostic Imaging Report ---
INDICATION: Pneumonia COMPARISON: 01/22/2018 FINDINGS: Single view of the chest demonstrates stable Port-A-Cath. The heart is prominent with stable central vascular congestion. No pneumothorax or effusion is seen. Osseous structures stable. IMPRESSION: Unchanged cardiac enlargement with central vascular congestion Dictated by: Dictated on workstation # [id number]
[2018-01-23] MEDS: ENALAPRIL 5 MG (VASOTEC) TAB PO SCH (08:08)
[2018-01-23] MEDS: CLOPIDOGREL 75 MG (PLAVIX) TABLET PO SCH (08:08)
[2018-01-23] MEDS: methylPREDNISolone 40 MG/ML (Solu-MEDROL) VIAL IV SCH ×4 (08:08→23:31)
[2018-01-23] MEDS: DULoxetine 30 MG (CYMBALTA) CAP PO SCH (08:08)
[2018-01-23] MEDS: A & D OINT 60 GM TUBE TP SCH ×2 (08:09→20:31)
[2018-01-23] MEDS: CARVEDILOL 12.5 MG (COREG) TABLET PO SCH ×2 (08:09→20:27)
[2018-01-23] MEDS: LORATADINE (CLARITIN) 10 MG TAB PO SCH (08:09)
--- NOTE | 2018-01-23 08:25 | Cardiology Progress Note ---
Subjective Date Seen by Provider: Jan 23, 2018 Time Seen by Provider: 08:22 Subjective/Events-last exam Patient is laying down in bed, feeling better today, still having cough and shortness of breath. Overall reporting some improvement Review of Systems General: No Chills, No Night Sweats; Fatigue, Malaise; No Appetite, No Other HEENT: No Head Aches, No Visual Changes, No Eye Pain, No Ear Pain, No Dysphasia , No Sinus Congestion, No Post Nasal Drip, No Sore Throat, No Other Pulmonary: Dyspnea, Cough; No Pleuritic Chest Pain, No Other Cardiovascular: Edema; No: Chest Pain, Palpitations, Orthopnea, Paroxysmal Noc. Dyspnea, Lt Headedness, Other Focused Exam Lactate Level 01/22/18 10:51: Lactic Acid Level 0.64 Objective-Cardiology Exam Last Set of Vital Signs Vital Signs 01/23/18 01/23/18 06:00 06:58 Pulse 70 Resp 19 B/P (MAP) 146/92 (110) Pulse Ox 95 O2 Delivery Nasal Cannula O2 Flow Rate 4.00 Capillary Refill : Less Than 3 Seconds I&O Intake and Output 01/23/18 00:00 Intake Total 1840 ml Balance 1840 ml Intake Oral 740 ml IV Total 1100 ml # Voids 3 Daily Weight Change No General: Alert, Oriented X3, Cooperative HEENT: Atraumatic, PERRLA Neck: Supple, No JVD, No Thyromegaly Lungs: Normal Air Movement, Other (Bilateral rhonchi, expiratory wheezing) Heart: Regular Rate, Normal S1, Normal S2, No Murmurs Abdomen: Normal Bowel Sounds, Soft, No Tenderness, No Hepatosplenomegaly, No Masses Extremities: No Clubbing, No Cyanosis, Normal Pulses, No Tenderness/Swelling, Other (Edema) Skin: No Rashes, No Breakdown, No Significant Lesion Neuro: Normal Gait, Normal Speech, Strength at 5/5 X4 Ext, Normal Tone, Sensation Intact Psych/Mental Status: Mental Status NL, Mood NL Results Lab Laboratory Tests 01/22/18 10:51 01/23/18 03:30 A/P-Cardiology Admission Diagnosis Pneumonia Shortness of breath Acute exacerbation of COPD Hypertension Assessment/Plan Acute exacerbation of COPD, admitted and started on treatment, managed by primary care team Nonischemic cardiomyopathy, MUGA scan was done in November 2015 showing ejection fraction 55 percent, previous echocardiogram showing ejection fraction 25-30 percent, no recent workup, will evaluate echo Mild coronary artery disease nonobstructive disease by cardiac catheterization done in May 2014. Continue to monitor at this time. Peripheral arterial disease, history of abdominal aortogram with angiogram to the lower extremities done by Dr. Cosme, reported to good vessel runoff to the lower extremities, medical therapy was recommended, repeat Peripheral runoff showed total occlusion of the anterior tibial artery and both lower extremities with brisk flow. It was done in March 2016, patient was referred by Dr. De Leon to [facility] and had angioplasty and stent done using drug-eluting stent Promus 3.524 mm to the anterior tibial artery on the right side with good results. Reporting healing ulcer. Feeling better. Continue to monitor Peripheral edema, chronic, lymphedema. Better at this time. Receiving therapy in [place], continue to monitor Hypertension, continue to monitor blood pressure Moderate bilateral carotid stenosis, ultrasound was done in October 2016. Continue to monitor CREST syndrome, managed by her polysomnographic technician. History of multiple back and knee surgeries, continue to monitor Chronic renal insufficiency, seen and established with Dr. Saundra Craig History of elevated liver enzymes, followed by primary care physician Obesity, BMI is 48, patient was educated on weight loss Clinical Quality Measures DVT/VTE Risk/Contraindication: Risk Factor Score Per Nursin RFS Level Per Nursing on Admit: 4+=Very High DEVI LONDON MD Jan 23, 2018 08:25
[2018-01-23] MEDS: ADVAIR HFA 115/21 MCG INHALER 8 GM IH SCH (10:31)
--- NOTE | 2018-01-23 11:44 | Progress Note-Hospitalist ---
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 Patient was found to have hypoxia of 79 percent on initial assessment with exacerbation of COPD. Chest x-ray did not show an infiltrate the patient does have a history of ESBL UTI and she does have 50-100 WBCs on the urine specimen so she will be placed on empiric meropenem antibiotic selection and initiate Pulmonology and cardiology consultation. She has seen the lymphedema specialist [facility] in [place] and has had a wonderful and dramatic improvement in that major debilitating condition. Subjective/Events-last exam Patient doing better No BM since she is not eating well UCx pending and on broad spectrum abx until results due to ESBL infection in the past Wheezing somewhat improved on IV steroids Can not use the CPAP only O2 Left ear hurts and noted no exam abnl Review of Systems Pulmonary: Dyspnea Focused Exam Lactate Level 01/22/18 10:51: Lactic Acid Level 0.64 Objective Exam Vital Signs Vital Signs Date Time Temp Pulse Resp B/P (MAP) Pulse Ox O2 Delivery O2 Flow Rate FiO2 01/23/18 13:55 99 Nasal Cannula 4.00 01/23/18 13:00 68 01/23/18 12:00 33 124/55 (78) 01/23/18 08:00 97.0 Capillary Refill : Less Than 3 Seconds General Appearance: No Apparent Distress, WD/WN, Chronically ill, Obese Respiratory: Chest Non Tender, No Accessory Muscle Use, No Respiratory Distress , Decreased Breath Sounds, Wheezing Cardiovascular: Regular Rate, Rhythm, No Edema, No Gallop, No JVD, No Murmur, Normal Peripheral Pulses Neurologic/Psychiatric: Alert, Oriented x3, No Motor/Sensory Deficits, Normal Mood/Affect Results/Procedures Lab Laboratory Tests 01/23/18 03:30 Patient resulted labs reviewed. Assessment/Plan Assessment and Plan Assess & Plan/Chief Complaint Assessment: Dyspnea with wheezing Exacerbation of COPD History of congestive heart failure with normal BNP yesterday History of acute kidney failure due to diuresis now normal creatinine today History of severe lymphedema dramatic improvement after seeing lymphedema specialist 3 times but hospital in [place] Severe obstructive sleep apnea may need BiPAP Obesity hypoventilation syndrome Hypertension ESBL UTI acute on chronic managed by Dr. Macias Plan: IV abx Monitor closely O2 Nebs IV steroids Diagnosis/Problems Diagnosis/Problems (1) Infection due to ESBL-producing Escherichia coli Status: Acute (2) Wheezing Status: Acute (3) Lymphedema Status: Chronic (4) VALDO on CPAP Status: Chronic (5) Obesity hypoventilation syndrome Status: Chronic (6) Renal insufficiency Status: Chronic (7) COPD exacerbation Status: Acute (8) Essential (primary) hypertension Status: Chronic Clinical Quality Measures DVT/VTE Risk/Contraindication: Risk Factor Score Per Nursin RFS Level Per Nursing on Admit: 4+=Very High SIENNA MADERA DO Jan 23, 2018 11:44
[2018-01-23] MEDS ORDERED: POLYETHYLENE GLYCOL 17 GM (MIRALAX) PACK PO PRN (11:45)
[2018-01-23] MEDS ORDERED: DOCUSATE SODIUM 100 MG (COLACE) CAP PO PRN (11:45)
[2018-01-23] MEDS: KCL 20 MEQ TAB (K-DUR) PO SCH ×2 (13:15→16:58)
[2018-01-23] MEDS: HYDROXYCHLOROQUINE 200 MG (PLAQUENIL) TAB PO SCH ×2 (13:15→16:58)
[2018-01-23] MEDS: GABAPENTIN 300 MG (NEURONTIN) CAP PO SCH (20:27)
[2018-01-23] MEDS: PANTOPRAZOLE 40 MG (PROTONIX) TAB PO SCH (20:27)
[2018-01-23] MEDS: SIMvastatin 20 MG (ZOCOR) TAB PO SCH (20:27)
[2018-01-23] MEDS: VITAMIN D3 1,000 UNITS (CHOLECALCIFEROL) TABLET PO SCH (20:27)
[2018-01-24 00:23] VITALS: BP 145/6
[2018-01-24 04:03] VITALS: BP 124/60
[2018-01-24] MEDS: MEROPENEM 500 MG in NS (IVPB) 100 ML IV SCH (05:20)
[2018-01-24] MEDS: methylPREDNISolone 40 MG/ML (Solu-MEDROL) VIAL IV SCH ×3 (05:20→18:03)
[2018-01-24 05:35] LABS: BASOPHILS % (AUTO) 0 % (0-10); EOSINOPHILS % (AUTO) 0 % (0-10); HEMATOCRIT 36 % (35-52); HEMOGLOBIN 11.7 G/DL (11.5-16.0); LYMPHOCYTES # (AUTO) 0.7 X 10^3 (1.0-4.0); LYMPHOCYTES % (AUTO) 9 % (12-44); MEAN CORPUSCULAR HEMOGLOBIN 30 PG (25-34); MEAN CORPUSCULAR HGB CONC 32 G/DL (32-36); MEAN CORPUSCULAR VOLUME 92 FL (80-99); MEAN PLATELET VOLUME 10.6 FL (7.4-10.4); MONOCYTES # (AUTO) 0.5 X 10^3 (0.0-1.0); MONOCYTES % (AUTO) 6 % (0-12); NEUTROPHILS # (AUTO) 7.2 X 10^3 (1.8-7.8); NEUTROPHILS % (AUTO) 85 % (42-75); PLATELET COUNT 146 10^3/uL (130-400); RED BLOOD COUNT 3.93 10^6/uL (4.35-5.85); RED CELL DISTRIBUTION WIDTH 13.6 % (10.0-14.5); WHITE BLOOD COUNT 8.4 10^3/uL (4.3-11.0)
[2018-01-24 05:56] LABS: ALANINE AMINOTRANSFERASE 14 U/L (0-55); ALBUMIN 3.3 GM/DL (3.2-4.5); ALKALINE PHOSPHATASE 51 U/L (40-136); BILIRUBIN,TOTAL 0.6 MG/DL (0.1-1.0); BUN/CREATININE RATIO 25; CALCIUM 9.3 MG/DL (8.5-10.1); CARBON DIOXIDE 29 MMOL/L (21-32); CHLORIDE 103 MMOL/L (98-107); CREATININE SERUM 0.81 MG/DL (0.60-1.30); GFR ESTIMATED > 60; GLUCOSE 148 MG/DL (70-105); MAGNESIUM 1.9 MG/DL (1.8-2.4); POTASSIUM 4.4 MMOL/L (3.6-5.0); SODIUM 140 MMOL/L (135-145); TOTAL PROTEIN 5.3 GM/DL (6.4-8.2)
--- NOTE | 2018-01-24 07:18 | Pulmonary Progress Note ---
Subjective Time Seen by a Provider: 07:15 Sepsis Event Evaluation Height, Weight, BMI Height: 5'3.00" Weight: 278lbs. 0.0oz. [id number]; 44.3 BMI Method:Stated Focused Exam Lactate Level 01/22/18 10:51: Lactic Acid Level 0.64 Exam Exam Vital Signs Date Time Temp Pulse Resp B/P (MAP) Pulse Ox O2 Delivery O2 Flow Rate FiO2 01/24/18 00:23 98.7 68 18 145/6 (52) 93 Nasal Cannula 3.50 01/23/18 20:00 Nasal Cannula 3.00 01/23/18 19:22 97.3 77 20 143/64 (90) 98 Nasal Cannula 3.50 01/23/18 18:36 98 Nasal Cannula 3.00 01/23/18 18:29 95 Nasal Cannula 3.00 01/23/18 16:00 96 Nasal Cannula 4.00 01/23/18 15:30 98.2 68 20 134/60 (84) 95 Nasal Cannula 3.50 01/23/18 13:55 99 Nasal Cannula 4.00 01/23/18 13:00 68 01/23/18 12:00 96 Nasal Cannula 4.00 01/23/18 12:00 70 33 124/55 (78) 98 Nasal Cannula 4.00 01/23/18 10:00 74 12 121/52 (75) 95 Nasal Cannula 4.00 01/23/18 09:00 77 12 118/65 (82) 94 Nasal Cannula 4.00 01/23/18 08:00 71 18 151/70 (97) 96 Nasal Cannula 4.00 01/23/18 08:00 97.0 01/23/18 08:00 96 Nasal Cannula 4.00 I & O 01/24/18 07:00 Intake Total 1080 ml Output Total 300 ml Balance 780 ml Height & Weight Height: 5'3.00" Weight: 278lbs. 0.0oz. [id number]; 44.3 BMI Method:Stated General Appearance: No Apparent Distress, WD/WN, Chronically ill, Obese HEENT: PERRL/EOMI, TMs Normal, Normal ENT Inspection, Pharynx Normal Neck: Full Range of Motion, Normal Inspection, Non Tender, Supple, Carotid Bruit Respiratory: Chest Non Tender, No Accessory Muscle Use, No Respiratory Distress , Decreased Breath Sounds, Wheezing Cardiovascular: Regular Rate, Rhythm, No Edema, No Gallop, No JVD, No Murmur, Normal Peripheral Pulses Capillary Refill: Less Than 3 Seconds Gastrointestinal: normal bowel sounds, non tender, soft Extremity: Normal Capillary Refill, Normal Inspection, Normal Range of Motion, Non Tender, No Calf Tenderness, Other (Trace edema) Neurologic/Psychiatric: Alert, Oriented x3, No Motor/Sensory Deficits, Normal Mood/Affect Skin: Normal Color, Warm/Dry Lymphatic: No Adenopathy Results Lab Laboratory Tests 01/22/18 10:51 01/23/18 03:30 01/24/18 05:20 Assessment/Plan Assessment/Plan COPDAE -- Doubt pneumonia -SVNS -Change solumedrol to 40 q 6 -Change to prednisone taper -No Abx needed from pulmonary standpoint Pulmonary edema -CXR shows congestive changes. -BNP is mildly elevated -Restart home bumex 1mg daily ? UTI -Merrem - will leave to Dr. Parada's management. VALDO with [facility] -Uses home CPAP Chronic lymphadenopathy CKD HX of ESBL and MRSA JORGE DORADO DO Jan 24, 2018 07:18
[2018-01-24] MEDS: RT-ALBUTEROL/IPRATROPIUM 3 ML (DUONEB) VIAL IH SCH ×4 (07:37→21:03)
[2018-01-24] MEDS: ADVAIR HFA 115/21 MCG INHALER 8 GM IH SCH ×2 (07:39→21:04)
[2018-01-24 07:50] VITALS: BP 126/57
--- NOTE | 2018-01-24 08:48 | Cardiology Progress Note ---
Subjective Date Seen by Provider: Jan 24, 2018 Time Seen by Provider: 08:46 Subjective/Events-last exam Patient sitting up in bed, continues to complain of dyspnea. Denies any chest pain, dizziness, or lightheadedness. Review of Systems General: No Night Sweats, No Fatigue, No Malaise HEENT: No Visual Changes, No Dysphasia, No Sore Throat Pulmonary: Dyspnea, Cough Cardiovascular: Edema; No: Chest Pain, Palpitations, Paroxysmal Noc. Dyspnea Gastrointestinal: No: Nausea, Vomiting, Abdominal Pain Genitourinary: No Dysuria, No Frequency Musculoskeletal: No: neck pain Neurological: No: Weakness, Numbness, Change in speech, Confusion Focused Exam Lactate Level 01/22/18 10:51: Lactic Acid Level 0.64 Objective-Cardiology Exam Last Set of Vital Signs Vital Signs 01/24/18 01/24/18 04:03 07:37 Temp 98.4 Pulse 67 Resp 18 B/P (MAP) 124/60 (81) Pulse Ox 93 O2 Delivery Nasal Cannula O2 Flow Rate 3.00 Capillary Refill : Less Than 3 Seconds I&O Intake and Output 01/24/18 00:00 Intake Total 980 ml Output Total 600 ml Balance 380 ml Intake Oral 980 ml Output Urine Total 600 ml # Voids 1 # Bowel Movements 1 General: Alert, Oriented X3, Cooperative HEENT: Atraumatic, PERRLA Neck: Supple, No JVD, No Thyromegaly Lungs: Normal Air Movement, Other (Bilateral rhonchi, expiratory wheezing) Heart: Regular Rate, Normal S1, Normal S2, No Murmurs Abdomen: Normal Bowel Sounds, Soft, No Tenderness, No Hepatosplenomegaly, No Masses Extremities: No Clubbing, No Cyanosis, Normal Pulses, No Tenderness/Swelling, Other (+1 Edema) Skin: No Rashes, No Breakdown, No Significant Lesion Neuro: Normal Gait, Normal Speech, Strength at 5/5 X4 Ext, Normal Tone, Sensation Intact Psych/Mental Status: Mental Status NL, Mood NL Results Lab Laboratory Tests 01/24/18 05:20 A/P-Cardiology Admission Diagnosis Pneumonia Shortness of breath Acute exacerbation of COPD Hypertension Assessment/Plan Acute exacerbation of COPD, admitted and started on treatment, managed by primary care team Nonischemic cardiomyopathy, MUGA scan was done in November 2015 showing ejection fraction 55 percent, previous echocardiogram showing ejection fraction 25-30 percent, no recent workup, will evaluate echo Mild coronary artery disease nonobstructive disease by cardiac catheterization done in May 2014. Continue to monitor at this time. Peripheral arterial disease, history of abdominal aortogram with angiogram to the lower extremities done by Dr. Cosme, reported to good vessel runoff to the lower extremities, medical therapy was recommended, repeat Peripheral runoff showed total occlusion of the anterior tibial artery and both lower extremities with brisk flow. It was done in March 2016, patient was referred by Dr. De Leon to [facility] and had angioplasty and stent done using drug-eluting stent Promus 3.524 mm to the anterior tibial artery on the right side with good results. Reporting healing ulcer. Feeling better. Continue to monitor Peripheral edema, chronic, lymphedema. Better at this time. Receiving therapy in [place], continue to monitor Hypertension, continue to monitor blood pressure Moderate bilateral carotid stenosis, ultrasound was done in October 2016. Continue to monitor CREST syndrome, managed by her senior data mining analyst. History of multiple back and knee surgeries, continue to monitor Chronic renal insufficiency, seen and established with Dr. Saundra Craig History of elevated liver enzymes, followed by primary care physician Obesity, BMI is 48, patient was educated on weight loss Clinical Quality Measures DVT/VTE Risk/Contraindication: Risk Factor Score Per Nursin RFS Level Per Nursing on Admit: 4+=Very High RUBA SAMUEL Jan 24, 2018 08:48
--- NOTE | 2018-01-24 08:59 | Progress Note-Hospitalist ---
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 Patient was found to have hypoxia of 79 percent on initial assessment with exacerbation of COPD. Chest x-ray did not show an infiltrate the patient does have a history of ESBL UTI and she does have 50-100 WBCs on the urine specimen so she will be placed on empiric meropenem antibiotic selection and initiate Pulmonology and cardiology consultation. She has seen the lymphedema specialist [facility] in [place] and has had a wonderful and dramatic improvement in that major debilitating condition. Subjective/Events-last exam Patient doing okay but not much better Wheezing continues No infiltrate and urine culture no UTI so we'll discontinue antibiotics Will need swing bed for slow taper of IV steroids and nebulizer treatments Labs stable Nausea at times Constipation and requests Lactulose Review of Systems General: Fatigue Pulmonary: Dyspnea Gastrointestinal: Constipation Focused Exam Lactate Level 01/22/18 10:51: Lactic Acid Level 0.64 Objective Exam Vital Signs Vital Signs Date Time Temp Pulse Resp B/P (MAP) Pulse Ox O2 Delivery O2 Flow Rate FiO2 01/24/18 07:37 93 Nasal Cannula 3.00 01/24/18 04:03 98.4 67 18 124/60 (81) Capillary Refill : Less Than 3 Seconds General Appearance: No Apparent Distress, WD/WN, Chronically ill, Obese Respiratory: Chest Non Tender, No Accessory Muscle Use, No Respiratory Distress , Decreased Breath Sounds, Wheezing Cardiovascular: Regular Rate, Rhythm, No Edema, No Gallop, No JVD, No Murmur, Normal Peripheral Pulses Neurologic/Psychiatric: Alert, Oriented x3, No Motor/Sensory Deficits, Normal Mood/Affect Results/Procedures Lab Laboratory Tests 01/24/18 05:20 Patient resulted labs reviewed. Assessment/Plan Assessment and Plan Assess & Plan/Chief Complaint Assessment: Dyspnea with wheezing Exacerbation of COPD History of congestive heart failure with normal BNP yesterday History of acute kidney failure due to diuresis now normal creatinine today History of severe lymphedema dramatic improvement after seeing lymphedema specialist 3 times but hospital in [place] Severe obstructive sleep apnea may need BiPAP Obesity hypoventilation syndrome Hypertension ESBL UTI hx but no UTI currently so DC abx Plan: DC IV abx Monitor closely O2 Nebs IV steroids Swing bed Diagnosis/Problems Diagnosis/Problems (1) Wheezing Status: Acute (2) Lymphedema Status: Chronic (3) VALDO on CPAP Status: Chronic (4) Obesity hypoventilation syndrome Status: Chronic (5) Renal insufficiency Status: Chronic (6) COPD exacerbation Status: Acute (7) Essential (primary) hypertension Status: Chronic Clinical Quality Measures DVT/VTE Risk/Contraindication: Risk Factor Score Per Nursin RFS Level Per Nursing on Admit: 4+=Very High SIENNA MADERA DO Jan 24, 2018 08:59
[2018-01-24] MEDS ORDERED: ONDANSETRON 4 MG/2 ML (SDV) Z0FRAN IVP PRN (09:00)
[2018-01-24] MEDS: BUMETANIDE 1 MG (BUMEX) TAB PO SCH (10:08)
[2018-01-24] MEDS: CARVEDILOL 12.5 MG (COREG) TABLET PO SCH ×2 (10:08→21:20)
[2018-01-24] MEDS: ENALAPRIL 5 MG (VASOTEC) TAB PO SCH (10:08)
[2018-01-24] MEDS: DULoxetine 30 MG (CYMBALTA) CAP PO SCH (10:08)
[2018-01-24] MEDS: LACTULOSE SYRUP 10GM/15ML (ENULOSE) 30ML UDC PO SCH ×2 (10:09→21:21)
[2018-01-24] MEDS: LORATADINE (CLARITIN) 10 MG TAB PO SCH (10:09)
[2018-01-24] MEDS: CLOPIDOGREL 75 MG (PLAVIX) TABLET PO SCH (10:09)
[2018-01-24] MEDS: A & D OINT 60 GM TUBE TP SCH ×2 (10:10→21:20)
[2018-01-24 11:00] VITALS: BP 149/63
--- NOTE | 2018-01-24 11:33 | Cardiology Progress Note ---
Subjective Date Seen by Provider: Jan 24, 2018 Time Seen by Provider: 11:30 Subjective/Events-last exam patient is sitting in a chair, still having some wheezing and shortness of breath. Review of Systems General: No Chills, No Night Sweats, No Fatigue, No Malaise, No Appetite, No Other HEENT: No Head Aches, No Visual Changes, No Eye Pain, No Ear Pain, No Dysphasia , No Sinus Congestion, No Post Nasal Drip, No Sore Throat, No Other Pulmonary: Dyspnea, Cough; No Pleuritic Chest Pain, No Other Cardiovascular: No: Chest Pain, Palpitations, Orthopnea, Paroxysmal Noc. Dyspnea, Edema, Lt Headedness, Other Focused Exam Lactate Level 01/22/18 10:51: Lactic Acid Level 0.64 Objective-Cardiology Exam Last Set of Vital Signs Vital Signs 01/24/18 01/24/18 07:50 10:50 Temp 96.4 Pulse 57 Resp 24 B/P (MAP) 126/57 (80) Pulse Ox 96 O2 Delivery Nasal Cannula O2 Flow Rate 3.00 Capillary Refill : Less Than 3 Seconds I&O Intake and Output 01/24/18 00:00 Intake Total 980 ml Output Total 600 ml Balance 380 ml Intake Oral 980 ml Output Urine Total 600 ml # Voids 1 # Bowel Movements 1 General: Alert, Oriented X3, Cooperative HEENT: Atraumatic, PERRLA Neck: Supple, No JVD, No Thyromegaly Lungs: Normal Air Movement, Other (Bilateral rhonchi, expiratory wheezing) Heart: Regular Rate, Normal S1, Normal S2, No Murmurs Abdomen: Normal Bowel Sounds, Soft, No Tenderness, No Hepatosplenomegaly, No Masses Extremities: No Clubbing, No Cyanosis, Normal Pulses, No Tenderness/Swelling, Other (+1 Edema) Skin: No Rashes, No Breakdown, No Significant Lesion Neuro: Normal Gait, Normal Speech, Strength at 5/5 X4 Ext, Normal Tone, Sensation Intact Psych/Mental Status: Mental Status NL, Mood NL Results Lab Laboratory Tests 01/24/18 05:20 A/P-Cardiology Admission Diagnosis Pneumonia Shortness of breath Acute exacerbation of COPD Hypertension Assessment/Plan Acute exacerbation of COPD, still having shortness of breath and wheezing. Managed by primary care team. Nonischemic cardiomyopathy, MUGA scan was done in November 2015 showing ejection fraction 55 percent, previous echocardiogram showing ejection fraction 25-30 percent, no recent workup, I will evaluate 2-D echo Mild coronary artery disease nonobstructive disease by cardiac catheterization done in May 2014. Continue to monitor at this time. Peripheral arterial disease, history of abdominal aortogram with angiogram to the lower extremities done by Dr. Cosme, reported to good vessel runoff to the lower extremities, medical therapy was recommended, repeat Peripheral runoff showed total occlusion of the anterior tibial artery and both lower extremities with brisk flow. It was done in March 2016, patient was referred by Dr. De Leon to [facility] and had angioplasty and stent done using drug-eluting stent Promus 3.524 mm to the anterior tibial artery on the right side with good results. Reporting healing ulcer. Feeling better. Continue to monitor Peripheral edema, chronic, lymphedema. Better at this time. Receiving therapy in [place], continue to monitor Hypertension, continue to monitor blood pressure Moderate bilateral carotid stenosis, ultrasound was done in October 2016. Continue to monitor CREST syndrome, managed by her housing and residence life director. History of multiple back and knee surgeries, continue to monitor Chronic renal insufficiency, seen and established with Dr. Saundra Craig History of elevated liver enzymes, followed by primary care physician Obesity, BMI is 48, patient was educated on weight loss Clinical Quality Measures DVT/VTE Risk/Contraindication: Risk Factor Score Per Nursin RFS Level Per Nursing on Admit: 4+=Very High DEVI LONDON MD Jan 24, 2018 11:33
--- NOTE | 2018-01-24 11:50 | Physical Therapy Evaluation ---
PT Evaluation-General Medical Diagnosis Admission Date Jan 22, 2018 at 11:20 Medical Diagnosis: Pneumonia, Respiratory failure Onset Date: Jan 22, 2018 Therapy Diagnosis Therapy Diagnosis: General weakness Height/Weight Height (Feet): 5 Height (Inches): 3.00 Weight (Pounds): 278 Weight (Ounces): 0.0 Precautions Precautions/Isolations: Fall Prevention, Standard Precautions Weight Bear Status Right Lower Extremity: Right Full Weight Bearing Left Lower Extremity: Left Full Weight Bearing Referral Physician: Nasir Parada DO Reason for Referral: Evaluation/Treatment Medical History Pertinent Medical History: Arthritis, CAD, COPD, GERD, HTN, Neuropathy, Rheumatoid Arthritis Current History Patient reported to ER for SOB. Reviewed History: Yes Social History Home: Assisted Living Current Living Status: Alone Entry Into Home: Level Entry Prior/Core FIM Prior Level of Function Therapy Code Descriptions/Definitions Functional [place] Measure: 0=Not Assessed/NA 4=Minimal Assistance 1=Total Assistance 5=Supervision or Setup 2=Maximal Assistance 6=Modified [place] 3=Moderate Assistance 7=Complete [place] Therapy Quality Codes: 6 Independent with activity with or without an assistive device 5 Patient requires set up or clean up by helper. Patient completes activity by themselves 4 Supervision or touching assist (CGA). Ney provide cues , steadying assist 3 The helper provides less than half the effort to complete the activity 2 The helper provides more than half the effort to complete the activity 1 Dependent. The helper does all the effort to complete an activity 7 Patient refused to complete or attempt activity 9 The patient did not perform the activity before the current illness or injury 88 Not attempted due to Medical conditions or safety concerns Functional Abilities and Goals: Independent: Patient completed the activities by him/herself, with or without an assistive device, with no assistance from a helper. Needed Some Help: Patient needed partial assistance from another person to complete activities. Dependent: A helper completed the activities for the patient. Unknown: Not Applicable: Bed Mobility: 6 Transfers (B,C,W/C) (FIM): 6 Gait: 2 Wheelchair Mobility: 6 Indoor Mobility (Ambulation): Needed Some Help Stairs: Needed Some Help Prior Devices Use: Manual wheelchair, Walker PT Evaluation-Current Subjective Pt awake in bedside recliner watching tv when PT entered room. Pt agreed to evaluation by PT. Pain Numeric Pain Scale: 0-No Pain Location: No Pain Reported Objective Patient Orientation: Normal For Age Problem Solving: Fair Attachments: Oxygen ROM/Strength ROM Upper Extremities WNL ROM Lower Extremities WNL Strength Upper Extremities WNL Strength Lower Extremities 4/5BLE Integumentary/Posture Bowel Incontinence: No Bladder Incontinence: No Posture slightly kyphotic Neuromuscular (Tone, Coordination, Reflexes) Gross motor coordination intact Sensory Vision: Wears Glasses Hearing: Functional Sensation Right Upper Extremit: Intact Sensation Left Upper Extremity: Intact Sensation Right Lower Extremit: Intact Sensation Left Lower Extremity: Intact Transfers Therapy Code Descriptions/Definitions Functional [place] Measure: 0=Not Assessed/NA 4=Minimal Assistance 1=Total Assistance 5=Supervision or Setup 2=Maximal Assistance 6=Modified [place] 3=Moderate Assistance 7=Complete [place] Transfers (B, C, W/C) (FIM): 5 Scootin Sit to/from Stand: 5 Gait Mode of Locomotion: Both Anticipated Mode of Locomotion: Walk Gait (FIM): 1 Distance (FIM): 1=up to 49 ft Distance: 20' Gait Level of Assist: 5 Gait Persons Needed: 1 Gait Assistive Device: FWW Balance Sitting Static: Good Sitting Dynamic: Good Standing Static: Good Standing Dynamic: Good Assessment/Needs Pt has 4/5 gross motor strength for bilateral lower extremities. Patient is SBA during ambulation and transfers. Pt is able to walk to restroom with a FWW but needs someone to manage oxygen line at the moment. Patient will continue therapy to maintain current level of function. Rehab Potential: Fair PT Half-Way Goals Impregnator Operator Goals PT Half-Way Goals Time Frame: Jan 31, 2018 Transfers (B,C,W/C) (FIM): 6 Gait (FIM): 2 Gait distance (FIM): 4=374-97 ft Distance: 50' Gait Level of Assist: 5 Gait Assistive Device: FWW Wheelchair (FIM): 6 PT Plan Problem List Problem List: Activity Tolerance, Functional Strength, Safety, Balance, Gait, Transfer, Bed Mobility, ROM Treatment/Plan Treatment Plan: Continue Plan of Care Treatment Plan: Bed Mobility, Education, Functional Activity [place], Functional Strength, Gait, Safety, Therapeutic Exercise, Transfers Treatment Duration: Jan 31, 2018 Frequency: 6 times per week Estimated Hrs Per Day: .25 hour per day Patient and/or Family Agrees t: Yes Time/GCodes Time In: 1110 Time Out: 1123 Total Billed Treatment Time: 13 Total Billed Treatment 1 Visit [facility] - 13' GARO NICK PT Jan 24, 2018 11:50
[2018-01-24] MEDS ORDERED: IPRA0.2S51 NEB (11:52)
[2018-01-24] MEDS ORDERED: CRAN400T3 PO (11:52)
[2018-01-24] MEDS ORDERED: GUAI473L29 PO (11:52)
[2018-01-24] MEDS ORDERED: OXYC20TA3 PO (11:52)
[2018-01-24] MEDS ORDERED: predniSONE 10 MG TAB PO SCH (12:00)
[2018-01-24] MEDS: HYDROXYCHLOROQUINE 200 MG (PLAQUENIL) TAB PO SCH ×2 (12:23→18:03)
[2018-01-24] MEDS: KCL 20 MEQ TAB (K-DUR) PO SCH (12:33)
--- NOTE | 2018-01-24 15:07 | Occupational Therapy Eval ---
OT Evaluation-General/PLF Medical Diagnosis Admission Date Jan 22, 2018 at 11:20 Medical Diagnosis: Pneumonia, Respiratory failure Onset Date: Jan 22, 2018 Therapy Diagnosis Therapy Diagnosis: Weakness Height/Weight Height (Feet): 5 Height (Inches): 3.00 Weight (Pounds): 278 Weight (Ounces): 0.0 Precautions Precautions/Isolations: Fall Prevention, Standard Precautions Safety Interventions: None Weight Bear Status Weight Bearing Restriction: Weight Bearing/Tolerated Referral Physician: Nasir Parada DO Referral Reason: Activity Tolerance, Self Care, Evaluation/Treatment, Strengthening/ROM Medical History Pertinent Medical History: Arthritis, CAD, COPD, GERD, HTN, Neuropathy, Rheumatoid Arthritis Additional Medical History Sleep apnea, acute renal failure, lymphedema, hysterectomy Reviewed History: Yes Social History Home: Assisted Living Current Living Status: Alone Entry Into Home: Level Entry ADL-Prior Level of Function Therapy Code Descriptions/Definitions Functional [place] Measure: 0=Not Assessed/NA 4=Minimal Assistance 1=Total Assistance 5=Supervision or Setup 2=Maximal Assistance 6=Modified [place] 3=Moderate Assistance 7=Complete [place] Therapy Quality Codes: 6 Independent with activity with or without an assistive device 5 Patient requires set up or clean up by helper. Patient completes activity by themselves 4 Supervision or touching assist (CGA). [place] provide cues , steadying assist 3 The helper provides less than half the effort to complete the activity 2 The helper provides more than half the effort to complete the activity 1 Dependent. The helper does all the effort to complete an activity 7 Patient refused to complete or attempt activity 9 The patient did not perform the activity before the current illness or injury 88 Not attempted due to Medical conditions or safety concerns Functional Abilities and Goals: Independent: Patient completed the activities by him/herself, with or without an assistive device, with no assistance from a helper. Needed Some Help: Patient needed partial assistance from another person to complete activities. Dependent: A helper completed the activities for the patient. Unknown: Not Applicable: ADL PLOF Comments Pt. has a caregiver that assists her with showering twice a week. She spongebathes herself and dresses herself the other days of the week. Her caregiver does her laundry, and she uses a wheelchair to get herself to the dining area. Pt. uses walker when in the room. Self Care: Needed Some Help Functional Cognition: Independent DME/Equipment: Bath Chair, Shower DME/Equipment Comments Pt. has a walker, wheelchair OT Current Status Subjective No pain reported. Appearance Pt. up in chair. Agrees to shower. Mental Status/Objective Patient Orientation: Person, Place, Time, Situation Attachments: IV, Oxygen Current Glasses/Contacts: Yes Hand Dominance: Right Upper Extremity ROM Limited on right due to RCT. Full ROM on left UE. ADL-Treatment Therapy Code Descriptions/Definitions Functional [place] Measure: 0=Not Assessed/NA 4=Minimal Assistance 1=Total Assistance 5=Supervision or Setup 2=Maximal Assistance 6=Modified [place] 3=Moderate Assistance 7=Complete [place] Therapy Quality Codes: 6 Independent with activity with or without an assistive device 5 Patient requires set up or clean up by helper. Patient completes activity by themselves 4 Supervision or touching assist (CGA). [place] provide cues , steadying assist 3 The helper provides less than half the effort to complete the activity 2 The helper provides more than half the effort to complete the activity 1 Dependent. The helper does all the effort to complete an activity 7 Patient refused to complete or attempt activity 9 The patient did not perform the activity before the current illness or injury 88 Not attempted due to Medical conditions or safety concerns Bathing (FIM): 2 (Overall, in shower pt. requires increased assistance due to fatigue and lack of room. Requires assistance with LE bathing/rear ibis area, and under arms.) Lower Body Dressing (FIM): 2 (Pt. able to doff slipper socks, but requires assistance to don brief, slipper socks and EJ hose.) Transfers (B, C, W/C) (FIM): 5 (SBA with use of walker to ambulate to shower.) Shower Transfer (FIM): 5 Other Treatments Pt. requires increased time with ADL tasks due to fatigue and rest breaks needed. After shower, OT assists with donning hospital gown, EJ hose, brief, and slipper socks. Pt. ambulates to reclining chair and all needs are met. Education OT Patient Education: Correct positioning, Modified ADL techniques, Progress toward Goal/Update tx plan, Purpose of tx/functional activities, Reviewed precautions, Rehab process, Transfer techniques Teaching Recipient: Patient Teaching Methods: Demonstration, Discussion Response to Teaching: Verbalize Understanding, Return Demonstration OT Short Term Goals Short Term Goals Time Frame: Jan 31, 2018 Eating(FIM): 5 Grooming(FIM): 5 Bathing(FIM): 4 Upper Body Dressing(FIM): 5 Lower Body Dressing(FIM): 3 Toileting(FIM): 4 Transfers (B,C,W/C) (FIM): 5 Toilet/Commode Transfer(FIM): 5 Shower Transfer(FIM): 5 Additional Short Term Goals: 1-Demonstrate ADL Tasks, 2-Verbalize Understanding , 3-ImproveStrength/[place] 1=Demonstrate adherence to instructed precautions during ADL tasks. 2=Patient will verbalize/demonstrate understanding of assistive devices/ modifications for ADL. 3=Patient will improve strength/tolerance for activity to enable patient to perform ADL's. OT Panel Machine Setter Goals Assisted Goals Time Frame: Feb 14, 2018 Eating (FIM): 6 Grooming(FIM): 6 Bathing(FIM): 5 Upper Body Dressing(FIM): 6 Lower Body Dressing(FIM): 5 Toileting(FIM): 6 Transfers (B,C,W/C) (FIM): 6 Toilet/Commode Transfer(FIM): 6 Shower Transfer(FIM): 5 Additional Goals: 1-Demonstrate ADL Tasks, 2-Verbalize Understanding, 3- ImproveStrength/[place] 1=Demonstrate adherence to instructed precautions during ADL tasks. 2=Patient will verbalize/demonstrate understanding of assistive devices/ modifications for ADL. 3=Patient will improve strength/tolerance for activity to enable patient to perform ADL's. OT Education/Plan Problem List/Assessment Assessment: Decreased Activ Tolerance, Decreased UE Strength, Dependent Transfers, Impaired I ADL's, Impaired Self-Care Skills, Restricted Funct UE ROM Discharge Recommendations Plan/Recommendations: Continue POC Therapy D/C Recommendations: Assisted Living, Scheduled Assistance Equpiment Recommendations-D/C: Hip Kit Barriers to Progress Fatigue, limited right shoulder use due to RCT. Treatment Plan/Plan of Care Treatment,Training & Education: Yes Patient would benefit from OT for education, treatment and training to promote independence in ADL's, mobility, safety and/or upper extremity function for ADL' s. Plan of Care: ADL Retraining, Functional Mobility, UE Funct Exercise/Act Treatment Duration: Feb 14, 2018 Frequency: 5 times per week Estimated Hrs Per Day: .5 hour per day Agreement: Yes Rehab Potential: Fair Time/GCodes Start Time: 11:40 Stop Time: 12:20 Total Time Billed (hr/min): 40 Billed Treatment Time 1, EVH x 15minutes, ADL x 25minutes SELMA MAURICIO OT Jan 24, 2018 15:07
[2018-01-24] MEDS ORDERED: KCL 10 MEQ TAB (MICRO K) PO SCH (17:00)
[2018-01-24 18:53] VITALS: BP 147/66
[2018-01-24 20:29] VITALS: BP 158/76
[2018-01-24] MEDS: PANTOPRAZOLE 40 MG (PROTONIX) TAB PO SCH (21:20)
[2018-01-24] MEDS: GABAPENTIN 300 MG (NEURONTIN) CAP PO SCH (21:20)
[2018-01-24] MEDS: VITAMIN D3 1,000 UNITS (CHOLECALCIFEROL) TABLET PO SCH (21:20)
[2018-01-24] MEDS: SIMvastatin 20 MG (ZOCOR) TAB PO SCH (21:20)
[2018-01-25 00:03] VITALS: BP 146/66
[2018-01-25] MEDS: methylPREDNISolone 40 MG/ML (Solu-MEDROL) VIAL IV SCH ×2 (00:27→06:20)
[2018-01-25 04:03] LABS: BASOPHILS % (AUTO) 0 % (0-10); EOSINOPHILS % (AUTO) 0 % (0-10); HEMATOCRIT 35 % (35-52); HEMOGLOBIN 11.3 G/DL (11.5-16.0); LYMPHOCYTES # (AUTO) 0.8 X 10^3 (1.0-4.0); LYMPHOCYTES % (AUTO) 9 % (12-44); MEAN CORPUSCULAR HEMOGLOBIN 30 PG (25-34); MEAN CORPUSCULAR HGB CONC 33 G/DL (32-36); MEAN CORPUSCULAR VOLUME 92 FL (80-99); MEAN PLATELET VOLUME 10.9 FL (7.4-10.4); MONOCYTES # (AUTO) 0.5 X 10^3 (0.0-1.0); MONOCYTES % (AUTO) 5 % (0-12); NEUTROPHILS # (AUTO) 8.2 X 10^3 (1.8-7.8); NEUTROPHILS % (AUTO) 86 % (42-75); PLATELET COUNT 164 10^3/uL (130-400); RED BLOOD COUNT 3.78 10^6/uL (4.35-5.85); RED CELL DISTRIBUTION WIDTH 13.7 % (10.0-14.5); WHITE BLOOD COUNT 9.4 10^3/uL (4.3-11.0)
[2018-01-25 04:10] VITALS: BP 140/68
[2018-01-25 04:30] LABS: ALANINE AMINOTRANSFERASE 15 U/L (0-55); ALBUMIN 3.1 GM/DL (3.2-4.5); ALKALINE PHOSPHATASE 49 U/L (40-136); BILIRUBIN,TOTAL 0.5 MG/DL (0.1-1.0); BUN/CREATININE RATIO 28; CALCIUM 9.2 MG/DL (8.5-10.1); CARBON DIOXIDE 28 MMOL/L (21-32); CHLORIDE 103 MMOL/L (98-107); CREATININE SERUM 0.83 MG/DL (0.60-1.30); GFR ESTIMATED > 60; GLUCOSE 155 MG/DL (70-105); POTASSIUM 3.9 MMOL/L (3.6-5.0); SODIUM 140 MMOL/L (135-145); TOTAL PROTEIN 5.5 GM/DL (6.4-8.2)
[2018-01-25] MEDS ORDERED: KCL 10 MEQ TAB (MICRO K) PO SCH (07:00)
--- NOTE | 2018-01-25 07:21 | Pulmonary Progress Note ---
Subjective Time Seen by a Provider: 07:19 Subjective/Events-last exam pt states SOB is worse. Spo2 93% on [place] Sepsis Event Evaluation Height, Weight, BMI Height: 5'3.00" Weight: 278lbs. 0.0oz. 126.738183gy; 44.3 BMI Method:Stated Focused Exam Lactate Level 01/22/18 10:51: Lactic Acid Level 0.64 Exam Exam Vital Signs Date Time Temp Pulse Resp B/P (MAP) Pulse Ox O2 Delivery O2 Flow Rate FiO2 01/25/18 00:03 98.7 74 18 146/66 (92) 93 Nasal Cannula 3.00 01/24/18 20:29 97.1 84 22 158/76 (103) 94 Nasal Cannula 3.00 01/24/18 20:00 Nasal Cannula 3.00 01/24/18 18:53 96.9 20 18 147/66 (93) 95 Nasal Cannula 3.50 01/24/18 14:21 97 Nasal Cannula 3.00 01/24/18 11:00 96.5 69 16 149/63 (91) 97 Nasal Cannula 3.50 01/24/18 10:50 96 Nasal Cannula 3.00 01/24/18 08:00 96 Nasal Cannula 3.00 01/24/18 07:50 96.4 57 24 126/57 (80) 94 Nasal Cannula 3.50 01/24/18 07:37 93 Nasal Cannula 3.00 I & O 01/25/18 07:00 Intake Total 1520 ml Output Total 200 ml Balance 1320 ml Height & Weight Height: 5'3.00" Weight: 278lbs. 0.0oz. 126.666921tv; 44.3 BMI Method:Stated General Appearance: No Apparent Distress, WD/WN, Chronically ill, Obese HEENT: PERRL/EOMI, TMs Normal, Normal ENT Inspection, Pharynx Normal Neck: Full Range of Motion, Normal Inspection, Non Tender, Supple, Carotid Bruit Respiratory: Chest Non Tender, No Accessory Muscle Use, No Respiratory Distress , Decreased Breath Sounds, Wheezing Cardiovascular: Regular Rate, Rhythm, No Edema, No Gallop, No JVD, No Murmur, Normal Peripheral Pulses Capillary Refill: Less Than 3 Seconds Gastrointestinal: normal bowel sounds, non tender, soft Extremity: Normal Capillary Refill, Normal Inspection, Normal Range of Motion, Non Tender, No Calf Tenderness, Other (Trace edema) Neurologic/Psychiatric: Alert, Oriented x3, No Motor/Sensory Deficits, Normal Mood/Affect Skin: Normal Color, Warm/Dry Lymphatic: No Adenopathy Results Lab Laboratory Tests 01/24/18 05:20 01/25/18 03:50 Assessment/Plan Assessment/Plan COPDAE -- Doubt pneumonia -SVNS, advair -Solumedrol IV Q6 -No Abx needed from pulmonary standpoint -Check PA/LAT CXR this AM secondary to worsening SOB. Pulmonary edema -CXR shows congestive changes. -BNP is mildly elevated -home bumex 1mg daily VALDO with OHS -Uses home CPAP Chronic lymphadenopathy CKD HX of ESBL and MRSA GI/DVT ppx -Start Lovenox -Start SCDs -Protonix JORGE DORADO DO Jan 25, 2018 07:21
[2018-01-25] MEDS: RT-ALBUTEROL/IPRATROPIUM 3 ML (DUONEB) VIAL IH SCH (07:43)
[2018-01-25] MEDS: ADVAIR HFA 115/21 MCG INHALER 8 GM IH SCH (07:48)
[2018-01-25 08:00] VITALS: BP 139/65
[2018-01-25] MEDS ORDERED: ENOXAPARIN 40 MG/0.4 ML (LOVENOX) SYR SC NR (08:00)
[2018-01-25] MEDS: CLOPIDOGREL 75 MG (PLAVIX) TABLET PO SCH (09:38)
[2018-01-25] MEDS: ENALAPRIL 5 MG (VASOTEC) TAB PO SCH (09:38)
[2018-01-25] MEDS: LORATADINE (CLARITIN) 10 MG TAB PO SCH (09:38)
[2018-01-25] MEDS: CARVEDILOL 12.5 MG (COREG) TABLET PO SCH (09:38)
[2018-01-25] MEDS: DULoxetine 30 MG (CYMBALTA) CAP PO SCH (09:38)
[2018-01-25] MEDS: BUMETANIDE 1 MG (BUMEX) TAB PO SCH (09:38)
[2018-01-25] MEDS: LACTULOSE SYRUP 10GM/15ML (ENULOSE) 30ML UDC PO SCH (09:39)
[2018-01-25] MEDS: A & D OINT 60 GM TUBE TP SCH (09:39)
--- NOTE | 2018-01-25 09:46 | Diagnostic Imaging Report ---
INDICATION: Pneumonia and respiratory failure. Comparison made with prior examination from 01/23/18 FINDINGS: There is cardiomegaly. There is mild venous congestion. There are patchy bibasal infiltrates. There is no pleural effusion or pneumothorax. The mediastinum is unremarkable. IMPRESSION: Patchy bibasal infiltrates. Cardiomegaly and mild central pulmonary venous congestion. Dictated by: Dictated on workstation # [id number]
--- NOTE | 2018-01-25 09:57 | Discharge Summary-Hospitalist ---
SIENNA MADERA DO 01/25/18 0957: Diagnosis/Chief Complaint Date of Admission Jan 22, 2018 at 11:20 Date of Discharge Discharge Date: Jan 25, 2018 Admission Diagnosis Assessment: Dyspnea with wheezing Exacerbation of COPD History of congestive heart failure with normal BNP today History of acute kidney failure due to diuresis now normal creatinine today History of severe lymphedema dramatic improvement after seeing lymphedema specialist 3 times but hospital in [place] Severe obstructive sleep apnea may need BiPAP Obesity hypoventilation syndrome Hypertension ESBL UTI acute on chronic managed by Dr. Macias Plan: Empiric antibiotic IV steroids Nebs Oxygen Cardiology and pulmonology expertise is appreciated Discharge Diagnosis (1) Wheezing Status: Acute (2) Lymphedema Status: Chronic (3) VALDO on CPAP Status: Chronic (4) Obesity hypoventilation syndrome Status: Chronic (5) Renal insufficiency Status: Chronic (6) COPD exacerbation Status: Acute (7) Essential (primary) hypertension Status: Chronic Discharge Summary Discharge Physical Exam Allergies: Coded Allergies: NSAIDS (Non-Steroidal Anti-Inflamma (Unverified Allergy, Mild, 03/18/09) Penicillins (Verified Allergy, Unknown, 01/03/06) Sulfa (Sulfonamide Antibiotics) (Verified Allergy, Unknown, 01/03/06) aspirin (Verified Allergy, Unknown, 01/03/06) carbamazepine (Verified Allergy, Unknown, 09/20/06) cephalexin (Verified Allergy, Unknown, 01/03/06) iodine (Verified Allergy, Unknown, 01/03/06) latex (Unverified Allergy, Unknown, 06/21/13) Vitals & I&Os Vital Signs Date Time Temp Pulse Resp B/P (MAP) Pulse Ox O2 Delivery O2 Flow Rate FiO2 01/25/18 08:48 Nasal Cannula 3.00 01/25/18 08:00 97.3 63 20 139/65 (89) 94 General Appearance: No Apparent Distress, WD/WN, Chronically ill, Obese Respiratory: Chest Non Tender, No Accessory Muscle Use, No Respiratory Distress , Wheezing Cardiovascular: Regular Rate, Rhythm, No Edema, No Gallop, No JVD, No Murmur, Normal Peripheral Pulses Neurologic/Psychiatric: Alert, Oriented x3, No Motor/Sensory Deficits, Normal Mood/Affect Hospital Course Hospital course: pt was admitted through ER with dyspnea and wheezing. Final CXR revealed no infiltrate. UTI with ESBL was presumed and treated empirically with Meropenem but final UCx revealed no UTI so that abx was DC. IV steroids were required and maintained due to severe wheezing and was in need of SB status for close monitoring prior to returning back to [place]. Labs (last 24 hrs) Laboratory Tests 01/25/18 03:50: White Blood Count 9.4, Red Blood Count 3.78L, Hemoglobin 11.3L, Hematocrit 35, Mean Corpuscular Volume 92, Mean Corpuscular Hemoglobin 30, Mean Corpuscular Hemoglobin Concent 33, Red Cell Distribution Width 13.7, Platelet Count 164, Mean Platelet Volume 10.9H, Neutrophils (%) (Auto) 86H, Lymphocytes (%) (Auto) 9L, Monocytes (%) (Auto) 5, Eosinophils (%) (Auto) 0, Basophils (%) (Auto) 0, Neutrophils # (Auto) 8.2H, Lymphocytes # (Auto) 0.8L, Monocytes # (Auto) 0.5, Eosinophils # (Auto) 0.0, Basophils # (Auto) 0.0, Sodium Level 140, Potassium Level 3.9, Chloride Level 103, Carbon Dioxide Level 28, Anion Gap 9, Blood Urea Nitrogen 23H, Creatinine 0.83, Estimat Glomerular Filtration Rate > 60, BUN/ Creatinine Ratio 28, Glucose Level 155H, Calcium Level 9.2, Corrected Calcium 9.9, Magnesium Level 2.0, Total Bilirubin 0.5, Aspartate Amino Transf (AST/SGOT ) 21, Alanine Aminotransferase (ALT/SGPT) 15, Alkaline Phosphatase 49, Total Protein 5.5L, Albumin 3.1L Microbiology 01/22/18 Blood Culture - Preliminary, Resulted No growth 01/22/18 Urine Culture - Final, Complete See Comments Patient resulted labs reviewed. Pending Labs Discussion & Recommendations Discharge Planning: <30 minutes discharge planning Discharge Home Medications: Active Scripts Active Reported Ipratropium [place] 0.2 Mg/1 Ml Solution 0.2 Mg NEB TID PRN Guaifenesin AC Cough Syrup (Guaifenesin/Codeine Phosphate) 473 Ml Liquid 5 Ml PO Q6H PRN Oxycodone HCl 20 Mg Tablet 20 Mg PO 10/06/23 Cranberry (Cranberry Fruit) 400 Mg Tablet 400 Mg PO BID Allopurinol 100 Mg Tablet 100 Mg PO DAILY Vitamin C (Ascorbate Calcium) 500 Mg Tablet 500 Mg PO DAILY Detrol LA (Tolterodine Tartrate) 4 Mg Cap 4 Mg PO DAILY Macrodantin (Nitrofurantoin Macrocrystal) 100 Mg Capsule 100 Mg PO 1700 Bumetanide 1 Mg Tablet 1 Mg PO DAILY Guaifenesin Dm Syrup (Guaifenesin/Dextromethorphan) 5 Ml Syrup 5 Ml PO Q6H PRN Calmoseptine Ointment (Menthol/Lanolin/Calamine/Znox) 71 Gm Oint TP UD PRN APPLY TO JARETT AREA Locoid (Hydrocortisone Butyrate) 15 Gm Cream..g. TP BID PRN Vitamin A & D Ointment (Vitamin A & D) 60 Gm Oint TP DAILY PRN APPLY TO BLE & FEET Oxycodone HCl 20 Mg Tablet 20 Mg PO Q6H PRN Simvastatin 20 Mg Tablet 20 Mg PO HS Plavix (Clopidogrel Bisulfate) 75 Mg Tablet 75 Mg PO DAILY Allergy Relief (Cetirizine HCl) 10 Mg Tablet 10 Mg PO DAILY Carvedilol 12.5 Mg Tablet 12.5 Mg PO BID Enalapril Maleate 5 Mg Tablet 2.5 Mg PO DAILY TAKES 1/2 (5MG) TABLET Duloxetine HCl 60 Mg Capsule.dr 60 Mg PO DAILY Hydroxychloroquine Sulfate 200 Mg Tablet 200 Mg PO 1200,1700 Gabapentin 300 Mg Capsule 300 Mg PO HS Nexium (Esomeprazole Magnesium) 40 Mg Cap 40 Mg PO HS Advair 250-50 Diskus (Fluticasone/Salmeterol) 1 Each Blst.w.dev 1 Puff IH BID Fluticasone Propionate 16 Gm Rombauer.susp 1 Rombauer NS DAILY PRN Vitamin D-3 (Cholecalciferol (Vitamin D3)) 2,000 Unit Capsule 2,000 Unit PO HS Potassium Chloride 10 Meq Capsule.er 20 Meq PO 1200,1700 TAKES 2 (10MEQ) CAPSULES Instructions to patient/family Please see electronic discharge instructions given to patient. Clinical Quality Measures DVT/VTE Risk/Contraindication: Risk Factor Score Per Nursin RFS Level Per Nursing on Admit: 4+=Very High JIMBO RUSS MED STUDENT 01/25/18 1036: Discharge Summary Discharge Physical Exam Allergies: Coded Allergies: NSAIDS (Non-Steroidal Anti-Inflamma (Unverified Allergy, Mild, 03/18/09) Penicillins (Verified Allergy, Unknown, 01/03/06) Sulfa (Sulfonamide Antibiotics) (Verified Allergy, Unknown, 01/03/06) aspirin (Verified Allergy, Unknown, 01/03/06) carbamazepine (Verified Allergy, Unknown, 09/20/06) cephalexin (Verified Allergy, Unknown, 01/03/06) iodine (Verified Allergy, Unknown, 01/03/06) latex (Unverified Allergy, Unknown, 06/21/13) Hospital Course The patient is a 70 year old female who presented to the [facility] ER with increasing cough and shortness of breath over the previous 4 days. Upon arrival SPO2 was found to be at 76%. The patient has had multiple similar presentations in the past. Her initial e-ray did not show an infiltrate and the patient was suspected of having a sever COPD exacerbation. She was found to have 50-100 WBCs on urine specimen and was placed on empiric antibiotic therapy. She has a history of infections due to ESBL producing E. coli. She was also treated with IV steroids for the acute COPD exacerbation. Urine and infiltrate cultures were unremarkable and empiric antibiotic therapy was discontinued on the third day. Her breathing improved over the course of four days and will be discharged to [facility] bed for continued monitoring and management. SIENNA MADERA DO Jan 25, 2018 09:57 JIMBO RUSS MED STUDENT Jan 25, 2018 10:36
[2018-02-01] MEDS ORDERED: LEVE500T6 PO (08:36)
== END 2018-01-25 09:56 | disposition swing bed (61) | DRG 191 ==
LOC: EDUNIT# 10:32 → ER 10:33 → ICU 11:20 → 4TH 01-23 14:15
PROVIDERS: ADMIT Internal Medicine; ATTEND Internal Medicine
DX: J44.1 Chronic obstructive pulmonary disease with (acute) exacerbation (principal); I13.0 Hypertensive heart and chronic kidney disease with heart failure and stage 1 through stage 4 chronic kidney disease, or unspecified chronic kidney disease; I50.9 Heart failure, unspecified; N18.9 Chronic kidney disease, unspecified; E66.2 Morbid (severe) obesity with alveolar hypoventilation; Z68.42 Body mass index [BMI] 45.0-49.9, adult; I42.9 Cardiomyopathy, unspecified; J81.1 Chronic pulmonary edema; I89.0 Lymphedema, not elsewhere classified; E78.00 Pure hypercholesterolemia, unspecified; J45.909 Unspecified asthma, uncomplicated; K21.9 Gastro-esophageal reflux disease without esophagitis; M05.9 Rheumatoid arthritis with rheumatoid factor, unspecified; I25.10 Atherosclerotic heart disease of native coronary artery without angina pectoris; I73.9 Peripheral vascular disease, unspecified; I65.23 Occlusion and stenosis of bilateral carotid arteries; M34.1 CR(E)ST syndrome; R74.8 Abnormal levels of other serum enzymes; K59.00 Constipation, unspecified; Z87.440 Personal history of urinary (tract) infections; Z86.14 Personal history of Methicillin resistant Staphylococcus aureus infection; Z85.3 Personal history of malignant neoplasm of breast; Z95.820 Peripheral vascular angioplasty status with implants and grafts; Z87.891 Personal history of nicotine dependence; Z88.0 Allergy status to penicillin; Z88.1 Allergy status to other antibiotic agents
CPT/HCPCS: 36415; 71045; 71046; 80053; 81000; 83605; 83735; 83880; 84484; 85025; 85379; 87040; 87088; 93005; 93306; 94640; 94760; 96361; 96365; 96375

== ENCOUNTER 2018-01-24 10:23 | Inpatient (IN) | payer MEDICARE, OTHER ==
[~2018-01-24] VITALS: Ht 160 cm; Wt 126.1 kg
[~2018-01-24 10:23] MED LIST changes: +ALLO100T PO; +ASCO-262 PO; +BUME1TAB4 PO; +NITR-68 PO; +TOLTA4 PO
[2018-01-24] MEDS ORDERED: CRAN400T3 PO (11:52)
[2018-01-24] MEDS ORDERED: GUAI473L29 PO (11:52)
[2018-01-24] MEDS ORDERED: OXYC20TA3 PO (11:52)
[2018-01-24] MEDS ORDERED: IPRA0.2S51 NEB (11:52)
[2018-01-25] MEDS ORDERED: ONDANSETRON 4 MG/2 ML (SDV) Z0FRAN IVP PRN (10:15)
[2018-01-25] MEDS ORDERED: FLUTICASONE NASAL SPRAY (FLONASE) 16 GM BTL NS PRN (10:15)
[2018-01-25] MEDS ORDERED: guaiFENesin/DM (ROBITUSSIN DM) 10 ML UDC PO PRN (10:15)
[2018-01-25] MEDS ORDERED: MENTHOL/ZINC OXIDE (CALMOSEPTINE) 113 GM TUBE TP PRN (10:15)
[2018-01-25] MEDS ORDERED: DOCUSATE SODIUM 100 MG (COLACE) CAP PO PRN (10:15)
[2018-01-25] MEDS ORDERED: POLYETHYLENE GLYCOL 17 GM (MIRALAX) PACK PO PRN (10:15)
[2018-01-25] MEDS ORDERED: RT-ALBUTEROL/IPRATROPIUM 3 ML (DUONEB) VIAL IH PRN (10:15)
--- OUTSIDE RECORDS SUMMARY | 2018-01-25 10:23 | XMS REPORT | Clinical Summary ---
Author Author [facility] Organization [facility] Address Unknown Phone Unavailable Care Team Providers Care Ssn/Ssbn Weapons Equipment Operator Name Role Phone PCP Unavailable Allergies Not [...]
--- OUTSIDE RECORDS SUMMARY | 2018-01-25 10:24 | XMS REPORT | Clinical Summary ---
Author Author [facility] Organization [facility] Address Unknown Phone Unavailable Care Team Providers Care Library Consultant Name Role Phone Bulmaro yBrne MD Unavailable Michelle Mesisna MD Unavailable Brooks Vu PA-C Unavailable Clare Parada DO PCP Brody Mcintosh MD Unavailable Sheri Aranda MD Unavailable Source Comments Some departments are not documenting in the electronic medical record. If you do not see the information that you expected, contact Release of Information in the Health Information Management department at [phone] for further assistance in locating additional records.[facility] Allergies Active Allergy Reactions Severity Noted [...] Taken Blood Pressure 145/72 01/17/2013 3:21 PM NEUROLOGICAL SURGERY TEACHER Pulse 101 01/17/2013 3:21 PM NEUROLOGICAL SURGERY TEACHER Temperature 36.9 C (98.4 F) 01/17/2013 3:21 PM NEUROLOGICAL SURGERY TEACHER Respiratory Rate 20 01/17/2013 3:21 PM NEUROLOGICAL SURGERY TEACHER Oxygen Saturation 94% 12/01/2012 11:37 AM CDT Inhaled Oxygen - - Concentration Weight 120.8 kg (266 lb 6.4 oz) 01/17/2013 3:21 PM NEUROLOGICAL SURGERY TEACHER Height 163.2 cm (5' 4.25") 01/17/2013 3:21 PM NEUROLOGICAL SURGERY TEACHER Body Mass Index 45.37 01/17/2013 3:21 PM NEUROLOGICAL SURGERY TEACHER Plan of Treatment Health Maintenance Due Date [...]
[2018-01-25] MEDS ORDERED: RT-ALBUTEROL/IPRATROPIUM 3 ML (DUONEB) VIAL ONE (11:12)
[2018-01-25] MEDS: RT-ALBUTEROL/IPRATROPIUM 3 ML (DUONEB) VIAL INH SCH ×3 (11:14→19:31)
--- NOTE | 2018-01-25 11:57 | Physical Therapy Evaluation ---
PT Evaluation-General Medical Diagnosis Admission Date Jan 25, 2018 at 10:12 Medical Diagnosis: Pneumonia, Respiratory Failure Onset Date: Jan 25, 2018 Therapy Diagnosis Therapy Diagnosis: General weakness Height/Weight Height (Feet): 5 Height (Inches): 3.00 Weight (Pounds): 278 Weight (Ounces): 0.0 Precautions Precautions/Isolations: Fall Prevention Weight Bear Status Right Lower Extremity: Right Full Weight Bearing Left Lower Extremity: Left Full Weight Bearing Referral Physician: Karma Reason for Referral: Evaluation/Treatment Medical History Pertinent Medical History: Arthritis, CAD, COPD, GERD, HTN, Neuropathy, Rheumatoid Arthritis Additional Medical History Arthritis, CAD, COPD, GERD, HTN, Neuropathy, Rheumatoid Arthritis Current History Patient reported to ER for SOB. Reviewed History: Yes Social History Home: Assisted Living Current Living Status: Alone Entry Into Home: Level Entry Prior/Core FIM Prior Level of Function Therapy Code Descriptions/Definitions Functional [place] Measure: 0=Not Assessed/NA 4=Minimal Assistance 1=Total Assistance 5=Supervision or Setup 2=Maximal Assistance 6=Modified [place] 3=Moderate Assistance 7=Complete [place] Therapy Quality Codes: 6 Independent with activity with or without an assistive device 5 Patient requires set up or clean up by helper. Patient completes activity by themselves 4 Supervision or touching assist (CGA). [place] provide cues , steadying assist 3 The helper provides less than half the effort to complete the activity 2 The helper provides more than half the effort to complete the activity 1 Dependent. The helper does all the effort to complete an activity 7 Patient refused to complete or attempt activity 9 The patient did not perform the activity before the current illness or injury 88 Not attempted due to Medical conditions or safety concerns Functional Abilities and Goals: Independent: Patient completed the activities by him/herself, with or without an assistive device, with no assistance from a helper. Needed Some Help: Patient needed partial assistance from another person to complete activities. Dependent: A helper completed the activities for the patient. Unknown: Not Applicable: Bed Mobility: 6 Transfers (B,C,W/C) (FIM): 6 Gait: 2 Wheelchair Mobility: 6 Indoor Mobility (Ambulation): Needed Some Help Stairs: Needed Some Help Prior Devices Use: Manual wheelchair, Walker Prior Device Use: Used both walker and WC PT Evaluation-Current Subjective Pt awake in chair finishing breakfast when PT entered room. Pt agreed to evaluation by PT. Pain Numeric Pain Scale: 0-No Pain Location: No Pain Reported Objective Patient Orientation: Normal For Age Problem Solving: Fair Attachments: Oxygen ROM/Strength ROM Upper Extremities WNL ROM Lower Extremities WNL Strength Upper Extremities WNL Strenght Lower Extremities 4/5 BLE Integumentary/Posture Bowel Incontinence: No Bladder Incontinence: No Neuromuscular (Tone, Coordination, Reflexes) Gross motor coordination intact Sensory Vision: Wears Glasses Hearing: Functional Sensation Right Upper Extremit: Intact Sensation Left Upper Extremity: Intact Sensation Right Lower Extremit: Intact Sensation Left Lower Extremity: Intact Transfers Therapy Code Descriptions/Definitions Functional [place] Measure: 0=Not Assessed/NA 4=Minimal Assistance 1=Total Assistance 5=Supervision or Setup 2=Maximal Assistance 6=Modified [place] 3=Moderate Assistance 7=Complete [place] Therapy Quality Codes: 6 Independent with activity with or without an assistive device 5 Patient requires set up or clean up by helper. Patient completes activity by themselves 4 Supervision or touching assist (CGA). [place] provide cues , steadying assist 3 The helper provides less than half the effort to complete the activity 2 The helper provides more than half the effort to complete the activity 1 Dependent. The helper does all the effort to complete an activity 7 Patient refused to complete or attempt activity 9 The patient did not perform the activity before the current illness or injury 88 Not attempted due to Medical conditions or safety concerns Transfers (B, C, W/C) (FIM): 5 Scootin Rollin Roll Left to Right (QC): 5 Supine to/from Sit: 5 Sit to/from Stand: 5 Sit to Lying (QC): 5 Lying to Sitting/Side of Bed(Q: 5 Sit to Stand (QC): 5 Chair/Fkk-am-Ipsvh Xfer(QC): 5 Car Transfer (QC): 5 Gait Does the Patient Walk?: Yes Mode of Locomotion: Walk Anticipated Mode of Locomotion: Walk Gait (FIM): 2 Distance (FIM): 5=647-07 ft Walk 10 feet (QC): 5 Walk 50 ft with 2 Turns(QC): 5 Distance: 125' Gait Level of Assist: 5 Gait Persons Needed: 1 Gait Assistive Device: FWW Balance Sitting Static: Good Sitting Dynamic: Good Standing Static: Good Standing Dynamic: Good Treatment Seated marching and leg kicks for time. Assessment/Needs Patient is able to ambulate for 125' with a FWW requiring SBA. Patient showed signs of fatigue during ambulation and needed 3L of oxygen. Patient returned to room and performed seated LE exercises in bedside recliner. Patient will continue therapy to increase overall endurance and ambulation for functional activity. Rehab Potential: Fair PT Automotive Product Specialist Goals Automotive Product Specialist Goals PT [facility] Goals Time Frame: Feb 04, 2018 Transfers (B,C,W/C) (FIM): 6 Sit to Lying (QC): 6 Lying-Sitting on Side/Bed(QC): 6 Sit to Stand (QC): 6 Rollin Roll Left to Right (QC): 6 Gait (FIM): 3 Gait distance (FIM): 3=150 ft Distance: 150' Walk 10 feet (QC): 6 Walk 50ft with 2 Turns (QC): 6 Walk 150 ft (QC): 6 Gait Level of Assist: 6 Gait Assistive Device: FWW PT Plan Problem List Problem List: Activity Tolerance, Functional Strength, Safety, Balance, Gait, Transfer, Bed Mobility, ROM Treatment/Plan Treatment Plan: Continue Plan of Care Treatment Plan: Bed Mobility, Education, Functional Activity [place], Functional Strength, Gait, Safety, Therapeutic Exercise, Transfers Treatment Duration: Feb 04, 2018 Frequency: 6 times per week Estimated Hrs Per Day: .25 hour per day Patient and/or Family Agrees t: Yes Time/GCodes Time In: 1122 Time Out: 1145 Total Billed Treatment Time: 23 Total Billed Treatment 1 Visit EVM - 10 FA - 13' GARO NICK PT Jan 25, 2018 11:57
--- NOTE | 2018-01-25 12:42 | Cardiology Progress Note ---
Subjective Date Seen by Provider: Jan 25, 2018 Time Seen by Provider: 12:40 Subjective/Events-last exam patient is laying down in bed, feeling better, less edema. No chest pain, breathing better Review of Systems General: No Chills, No Night Sweats; Fatigue; No Malaise, No Appetite, No Other HEENT: No Head Aches, No Visual Changes, No Eye Pain, No Ear Pain, No Dysphasia , No Sinus Congestion, No Post Nasal Drip, No Sore Throat, No Other Pulmonary: Dyspnea; No Cough, No Pleuritic Chest Pain, No Other Cardiovascular: Paroxysmal Noc. Dyspnea; No: Chest Pain, Palpitations, Orthopnea, Edema, Lt Headedness, Other Objective-Cardiology Exam Last Set of Vital Signs Vital Signs 01/25/18 11:15 Pulse Ox 95 O2 Delivery Nasal Cannula O2 Flow Rate 3.00 Capillary Refill : General: Alert, Oriented X3, Cooperative HEENT: Atraumatic, PERRLA Neck: Supple, No JVD, No Thyromegaly Lungs: Normal Air Movement, Other (bilateral rhonchi) Heart: Regular Rate, Normal S1, Normal S2, No Murmurs Abdomen: Normal Bowel Sounds, Soft, No Tenderness, No Hepatosplenomegaly, No Masses Extremities: No Clubbing, No Cyanosis, Normal Pulses, No Tenderness/Swelling, Other (mild edema) Skin: No Rashes, No Breakdown, No Significant Lesion Neuro: Normal Gait, Normal Speech, Strength at 5/5 X4 Ext, Normal Tone, Sensation Intact Psych/Mental Status: Mental Status NL, Mood NL A/P-Cardiology Assessment/Plan Acute exacerbation of COPD, improving, still have mild rhonchi, wheezing has improved. Managed by primary care team Nonischemic cardiomyopathy, MUGA scan was done in November 2015 showing ejection fraction 55 percent, last echocardiogram showed ejection fraction 50-55 percent , dilated left atrium, moderate MR, PA 30 mmHg. Significant improvement, no signs of heart failure. Continue to monitor Mild coronary artery disease nonobstructive disease by cardiac catheterization done in May 2014. Continue to monitor at this time. Peripheral arterial disease, history of abdominal aortogram with angiogram to the lower extremities done by Dr. Cosme, reported to good vessel runoff to the lower extremities, medical therapy was recommended, repeat Peripheral runoff showed total occlusion of the anterior tibial artery and both lower extremities with brisk flow. It was done in March 2016, patient was referred by Dr. De Leon to [facility] and had angioplasty and stent done using drug-eluting stent Promus 3.524 mm to the anterior tibial artery on the right side with good results. Reporting healing ulcer. Feeling better. Continue to monitor Peripheral edema, chronic, lymphedema. Better at this time. Receiving therapy in [place], continue to monitor Hypertension, continue to monitor blood pressure Moderate bilateral carotid stenosis, ultrasound was done in October 2016. Continue to monitor CREST syndrome, managed by her prevention coordinator. History of multiple back and knee surgeries, continue to monitor Chronic renal insufficiency, seen and established with Dr. Saundra Craig History of elevated liver enzymes, followed by primary care physician Obesity, BMI is 48, patient was educated on weight loss DEVI LONDON MD Jan 25, 2018 12:42
[2018-01-25] MEDS: methylPREDNISolone 40 MG/ML (Solu-MEDROL) VIAL IV SCH ×2 (13:04→17:22)
[2018-01-25] MEDS: HYDROXYCHLOROQUINE 200 MG (PLAQUENIL) TAB PO SCH ×2 (13:04→17:22)
--- NOTE | 2018-01-25 14:34 | Occupational Therapy Eval ---
OT Evaluation-General/PLF Medical Diagnosis Admission Date Jan 25, 2018 at 10:12 Medical Diagnosis: Pneumonia, Respiratory Failure Onset Date: Jan 22, 2018 Therapy Diagnosis Therapy Diagnosis: decr self care, weakness Height/Weight Height (Feet): 5 Height (Inches): 3.00 Weight (Pounds): 278 Weight (Ounces): 0.0 Precautions Precautions/Isolations: Contact Isolation, Fall Prevention, Standard Precautions Referral Physician: Karma Referral Reason: Evaluation/Treatment Medical History Pertinent Medical History: Arthritis, CAD, COPD, GERD, HTN, Neuropathy, Rheumatoid Arthritis Additional Medical History Sleep apnea, acute renal failure, lymphedema, hysterectomy Current History Admitted to acute care with pneumonia, resp failure Reviewed History: Yes Social History Home: Assisted Living ([place]) Current Living Status: Alone Entry Into Home: Level Entry ADL-Prior Level of Function Therapy Code Descriptions/Definitions Functional [place] Measure: 0=Not Assessed/NA 4=Minimal Assistance 1=Total Assistance 5=Supervision or Setup 2=Maximal Assistance 6=Modified [place] 3=Moderate Assistance 7=Complete [place] Therapy Quality Codes: 6 Independent with activity with or without an assistive device 5 Patient requires set up or clean up by helper. Patient completes activity by themselves 4 Supervision or touching assist (CGA). [place] provide cues , steadying assist 3 The helper provides less than half the effort to complete the activity 2 The helper provides more than half the effort to complete the activity 1 Dependent. The helper does all the effort to complete an activity 7 Patient refused to complete or attempt activity 9 The patient did not perform the activity before the current illness or injury 88 Not attempted due to Medical conditions or safety concerns Functional Abilities and Goals: Independent: Patient completed the activities by him/herself, with or without an assistive device, with no assistance from a helper. Needed Some Help: Patient needed partial assistance from another person to complete activities. Dependent: A helper completed the activities for the patient. Unknown: Not Applicable: ADL PLOF Comments Pt reported that she is able to manage her basic ADLs except that she has a diesel fitter mechanic to help her with showering twice a week. She said that she can get help with ADLs if she needs it and also needs help putting on compression socks. Her diesel fitter mechanic does her laundry and she uses a wheelchair to get to the dining room. She uses a walker in her room. 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 No pain mentioned Appearance Alert, cooperative but sleepy (said she did not sleep well last night) Mental Status/Objective Patient Orientation: Person, Place, Time, Situation Attachments: IV, Oxygen Current Glasses/Contacts: Yes Dentures/Partials: No Hand Dominance: Right Upper Extremity ROM Full ROM on L UE. Limited shoulder ROM on right from rotator cuff tear ADL-Treatment ADL-Current Pt was very sleepy She reported no difficulties opening packages or cutting up food to feed herself. She said she brushes her teeth with someone standing by her in the bathroom and also usually has SBA to go to the bathroom. She said she has not difficulty getting on/off toilet or managing clothing/hygiene. She took a shower and needed help to wash her lower legs, back and bottom, as well as under her arms. She has not worn anything other than hospital gowns but said she needs help to put on/take off slipper socks or compression stocking. She had difficulty staying awake throughout. Eating (FIM): 7 Eating (QC): 6 Grooming (FIM): 5 (SBA, FWW at sink) Oral Hygiene (QC): 4 (SBA) Bathing (FIM): 3 (70%. Help with lower legs and bottom, back.) Bathing Location: L Upper Leg, R Upper Leg, Chest, Abdomen, Perineal Area Shower/Bathe Self (QC): 3 (70%) Upper Body Dressing (QC): 88 Lower Body Dressing (QC): 88 On/Off Footwear (QC): 1 (Unable to manage slipper socks) Toileting (FIM): 5 (SBA, FWW) Toileting Hygiene (QC): 4 (SBA) Toilet/Commode Transfer (FIM): 5 (SBA, FWW) Toilet Transfer (QC): 4 (SBA) Education OT Patient Education: Purpose of tx/functional activities, Rehab process Teaching Recipient: Patient Teaching Methods: Discussion Response to Teaching: Verbalize Understanding OT Math Specialist Goals [facility] Goals Time Frame: Feb 04, 2018 Eating (FIM): 7 Eating (QC): 6 Groomin Oral Hygiene (QC): 6 Bathing(FIM): 4 Shower/Bathe Self (QC): 3 Upper Body Dressing(FIM): 5 Upper Body Dressing (QC): 5 Lower Body Dressing(FIM): 5 Lower Body Dressing (QC): 5 On/Off Footwear (QC): 3 Toileting(FIM): 6 Toileting Hygiene (QC): 6 Toilet/Commode Transfer(FIM): 6 Toilet/Commode Transfer (QC): 6 Shower Transfer(FIM): 5 Additional Goals: 1-Demonstrate ADL Tasks, 2-Verbalize Understanding, 3- ImproveStrength/[place] 1=Demonstrate adherence to instructed precautions during ADL tasks. 2=Patient will verbalize/demonstrate understanding of assistive devices/ modifications for ADL. 3=Patient will improve strength/tolerance for activity to enable patient to perform ADL's. OT Education/Plan Problem List/Assessment Assessment: Decreased Activ Tolerance, Decreased UE Strength, Dependent Transfers, Impaired Self-Care Skills, Restricted Funct UE ROM Pt would benefit from skilled OT to increase her independence in basic self care to allow her to safely return home Discharge Recommendations Plan/Recommendations: Continue POC Treatment Plan/Plan of Care Treatment,Training & Education: Yes Patient would benefit from OT for education, treatment and training to promote independence in ADL's, mobility, safety and/or upper extremity function for ADL' s. Plan of Care: ADL Retraining, Functional Mobility, UE Funct Exercise/Act, UE Neuromus Re-Ed/Coord Treatment Duration: Feb 04, 2018 Frequency: 5 times per week Estimated Hrs Per Day: .5 hour per day Agreement: Yes Rehab Potential: Fair Time/GCodes Start Time: 14:10 Stop Time: 14:25 Total Time Billed (hr/min): 15 Billed Treatment Time visit, evaluation 15 minutes moderate intensity EARLE DAVIDSON OT Jan 25, 2018 14:34
[2018-01-25] MEDS: KCL 10 MEQ TAB (MICRO K) PO SCH (17:22)
[2018-01-25 18:00] VITALS: BP 197/81
[2018-01-25] MEDS: ADVAIR HFA 115/21 MCG INHALER 8 GM IH SCH (19:31)
[2018-01-25] MEDS: LACTULOSE SYRUP 10GM/15ML (ENULOSE) 30ML UDC PO SCH (20:28)
[2018-01-25] MEDS: GABAPENTIN 300 MG (NEURONTIN) CAP PO SCH (20:28)
[2018-01-25] MEDS: CARVEDILOL 12.5 MG (COREG) TABLET PO SCH (20:28)
[2018-01-25] MEDS: PANTOPRAZOLE 40 MG (PROTONIX) TAB PO SCH (20:28)
[2018-01-25] MEDS: VITAMIN D3 1,000 UNITS (CHOLECALCIFEROL) TABLET PO SCH (20:28)
[2018-01-25] MEDS: SIMvastatin 20 MG (ZOCOR) TAB PO SCH (20:28)
[2018-01-25] MEDS: A & D OINT 60 GM TUBE TP SCH (20:28)
[2018-01-26] MEDS: methylPREDNISolone 40 MG/ML (Solu-MEDROL) VIAL IV SCH ×4 (00:10→17:12)
[2018-01-26] MEDS: KCL 10 MEQ TAB (MICRO K) PO SCH ×2 (05:27→17:12)
[2018-01-26 05:41] VITALS: BP 180/80
[2018-01-26] MEDS: RT-ALBUTEROL/IPRATROPIUM 3 ML (DUONEB) VIAL INH SCH ×4 (06:36→19:04)
[2018-01-26] MEDS: ADVAIR HFA 115/21 MCG INHALER 8 GM IH SCH ×2 (06:36→19:08)
[2018-01-26] MEDS ORDERED: ENOXAPARIN 40 MG/0.4 ML (LOVENOX) SYR SC NR (08:00)
[2018-01-26 08:17] VITALS: BP 166/70
--- NOTE | 2018-01-26 08:45 | Cardiology Progress Note ---
Subjective Date Seen by Provider: Jan 26, 2018 Time Seen by Provider: 08:42 Subjective/Events-last exam Patient is in bed, no new complaints. Continues to c/o dyspnea. Denies any chest pain. Objective-Cardiology Exam Last Set of Vital Signs Vital Signs 01/26/18 08:17 Temp 96.7 Pulse 65 Resp 20 B/P (MAP) 166/70 (102) Pulse Ox 95 O2 Delivery Nasal Cannula O2 Flow Rate 3.00 Capillary Refill : I&O Intake and Output 01/26/18 00:00 Intake Total 1340 ml Output Total 800 ml Balance 540 ml Intake Oral 1340 ml Output Urine Total 800 ml # Voids 5 Daily Weight Change Unsure General: Alert, Oriented X3, Cooperative HEENT: Atraumatic, PERRLA Neck: Supple, No JVD, No Thyromegaly Lungs: Normal Air Movement, Other (bilateral rhonchi) Heart: Regular Rate, Normal S1, Normal S2, No Murmurs Abdomen: Normal Bowel Sounds, Soft, No Tenderness, No Hepatosplenomegaly, No Masses Extremities: No Clubbing, No Cyanosis, Normal Pulses, No Tenderness/Swelling, Other (mild edema) Skin: No Rashes, No Breakdown, No Significant Lesion Neuro: Normal Gait, Normal Speech, Strength at 5/5 X4 Ext, Normal Tone, Sensation Intact Psych/Mental Status: Mental Status NL, Mood NL A/P-Cardiology Admission Diagnosis COPD CAD HTN PVD Assessment/Plan Acute exacerbation of COPD, improving, still have mild rhonchi, wheezing has improved. Managed by primary care team Nonischemic cardiomyopathy, MUGA scan was done in November 2015 showing ejection fraction 55 percent, last echocardiogram showed ejection fraction 50-55 percent , dilated left atrium, moderate MR, PA 30 mmHg. Significant improvement, no signs of heart failure. Continue to monitor Mild coronary artery disease nonobstructive disease by cardiac catheterization done in May 2014. Continue to monitor at this time. Peripheral arterial disease, history of abdominal aortogram with angiogram to the lower extremities done by Dr. Cosme, reported to good vessel runoff to the lower extremities, medical therapy was recommended, repeat Peripheral runoff showed total occlusion of the anterior tibial artery and both lower extremities with brisk flow. It was done in March 2016, patient was referred by Dr. De Leon to [facility] and had angioplasty and stent done using drug-eluting stent Promus 3.524 mm to the anterior tibial artery on the right side with good results. Reporting healing ulcer. Feeling better. Continue to monitor Peripheral edema, chronic, lymphedema. Better at this time. Receiving therapy in [place], continue to monitor Hypertension, elevated, I will increase enalapril, continue to monitor. Moderate bilateral carotid stenosis, ultrasound was done in October 2016. Continue to monitor CREST syndrome, managed by her sales engineer account manager. History of multiple back and knee surgeries, continue to monitor Chronic renal insufficiency, seen and established with Dr. Saundra Craig History of elevated liver enzymes, followed by primary care physician Obesity, BMI is 48, patient was educated on weight loss RUBA SAMUEL Jan 26, 2018 08:45
--- NOTE | 2018-01-26 09:32 | Progress Note-Hospitalist ---
SIENNA MADERA DO 01/26/18 0932: Subjective HPI/CC On Admission Date Seen by Provider: Jan 26, 2018 Time Seen by Provider: 09:30 Subjective/Events-last exam Patient doing well on swing bed BM+ Wheezing is a bit better every day Labs will be reviewed tomorrow Review of Systems General: Fatigue Pulmonary: Dyspnea Objective Exam Vital Signs Vital Signs Date Time Temp Pulse Resp B/P (MAP) Pulse Ox O2 Delivery O2 Flow Rate FiO2 01/26/18 15:35 96 Nasal Cannula 3.00 01/26/18 08:17 96.7 65 20 166/70 (102) Capillary Refill : General Appearance: No Apparent Distress, WD/WN, Chronically ill, Obese Respiratory: Chest Non Tender, No Accessory Muscle Use, No Respiratory Distress , Crackles, Wheezing Cardiovascular: Regular Rate, Rhythm, No Gallop, No JVD, No Murmur, Normal Peripheral Pulses Neurologic/Psychiatric: Alert, Oriented x3, No Motor/Sensory Deficits, Normal Mood/Affect Results/Procedures Lab Patient resulted labs reviewed. Assessment/Plan Assessment and Plan Assess & Plan/Chief Complaint Assessment: AECOP Wheezing requiring longer term IV steroids CHF diastolic type managed by Dr Carbajal Lymphedema h/o ARF due to diuretics VALDO intolerant to CPAP Obesity hypoventilation syndrome Plan: O2 Nebs IV steroids Diagnosis/Problems Diagnosis/Problems (1) Wheezing Status: Acute (2) Obesity hypoventilation syndrome Status: Chronic (3) Renal insufficiency Status: Chronic (4) Essential (primary) hypertension Status: Chronic (5) VALDO on CPAP Status: Chronic (6) Lymphedema Status: Chronic (7) COPD exacerbation Status: Acute (8) CHF (congestive heart failure) Status: Acute JIMBO RUSS MED STUDENT 01/26/18 1045: Subjective Subjective/Events-last exam The patient states that she is feeling better today She is complaining of cough with "rattles" She is complaining of nasal congestion Patient states that she experiences SOB w/exertion Objective Exam General Appearance: No Apparent Distress, WD/WN Respiratory: Chest Non Tender, No Accessory Muscle Use, No Respiratory Distress , Crackles Cardiovascular: Regular Rate, Rhythm, No Gallop, No JVD Gastrointestinal: Normal Bowel Sounds Neurologic/Psychiatric: Alert, Oriented x3, No Motor/Sensory Deficits Assessment/Plan Assessment and Plan Assess & Plan/Chief Complaint Assessment: 1) Severe COPD exacerbation 2) Obesity 3) VALDO 4) HTN Plan: 1) Continue IV steroids 2) Continue nebulizer treatments SIENNA MADERA DO Jan 26, 2018 09:32 JIMBO RUSS MED STUDENT Jan 26, 2018 10:45
[2018-01-26] MEDS: DULoxetine 30 MG (CYMBALTA) CAP PO SCH (09:41)
[2018-01-26] MEDS: BUMETANIDE 1 MG (BUMEX) TAB PO SCH (09:41)
[2018-01-26] MEDS: LORATADINE (CLARITIN) 10 MG TAB PO SCH (09:42)
[2018-01-26] MEDS: CARVEDILOL 12.5 MG (COREG) TABLET PO SCH ×2 (09:42→20:13)
[2018-01-26] MEDS: CLOPIDOGREL 75 MG (PLAVIX) TABLET PO SCH (09:42)
[2018-01-26] MEDS: LACTULOSE SYRUP 10GM/15ML (ENULOSE) 30ML UDC PO SCH ×2 (09:42→20:14)
[2018-01-26] MEDS: A & D OINT 60 GM TUBE TP SCH ×2 (09:42→20:14)
[2018-01-26] MEDS: ENALAPRIL 5 MG (VASOTEC) TAB PO SCH (09:42)
--- NOTE | 2018-01-26 09:44 | Pulmonary Progress Note ---
Subjective Time Seen by a Provider: 11:11 Subjective/Events-last exam Pt feel sightly improved. Sepsis Event Evaluation Height, Weight, BMI Height: 5'3.00" Weight: 278lbs. 0.0oz. 126.991756pd; 44.3 BMI Method:Stated Exam Exam Vital Signs Date Time Temp Pulse Resp B/P (MAP) Pulse Ox O2 Delivery O2 Flow Rate FiO2 01/26/18 08:17 96.7 65 20 166/70 (102) 95 Nasal Cannula 3.00 01/26/18 06:39 98 Nasal Cannula 3.00 01/26/18 05:41 98.5 75 20 180/80 (113) 95 Nasal Cannula 3.00 01/25/18 21:00 Nasal Cannula 3.00 01/25/18 19:36 Nasal Cannula 3.00 01/25/18 19:32 98 Nasal Cannula 3.00 01/25/18 18:00 97.9 74 22 197/81 (119) 98 Nasal Cannula 3.00 01/25/18 15:17 98 Nasal Cannula 3.00 01/25/18 11:15 95 Nasal Cannula 3.00 I & O 01/26/18 07:00 Intake Total 1750 ml Output Total 1150 ml Balance 600 ml Height & Weight Height: 5'3.00" Weight: 278lbs. 0.0oz. 126.381965xi; 44.3 BMI Method:Stated General Appearance: No Apparent Distress, WD/WN HEENT: PERRL/EOMI, Normal ENT Inspection, Pharynx Normal Neck: Full Range of Motion, Normal Inspection, Non Tender, Supple Respiratory: No Accessory Muscle Use, No Respiratory Distress, Decreased Breath Sounds Cardiovascular: Regular Rate, Rhythm, No Edema Capillary Refill: Less Than 3 Seconds Gastrointestinal: normal bowel sounds, non tender, soft Extremity: Normal Capillary Refill Neurologic/Psychiatric: Alert Skin: Normal Color Lymphatic: No Adenopathy Assessment/Plan Assessment/Plan COPDAE -- Doubt pneumonia -SVNS, advair -Solumedrol IV Q6 -Check PA/LAT CXR this AM secondary to worsening SOB. -CXR reviewed shows mild basal infiltrates. Pulmonary edema -home bumex 1mg daily VALDO with [facility] -Uses home CPAP Chronic lymphadenopathy CKD HX of ESBL and MRSA JORGE DORADO DO Jan 26, 2018 09:44
[2018-01-26] MEDS: HYDROXYCHLOROQUINE 200 MG (PLAQUENIL) TAB PO SCH ×2 (12:57→17:12)
--- NOTE | 2018-01-26 14:17 | Physical Therapy Daily Note ---
PT Daily Note-Current Subjective Pt reports doing ok this afternoon, no new c/o's. Encouragement needed due to pt wanting to stay in room to watch a TV show. States she feels she is doing a little better today since she is able to walk farther Pain Numeric Pain Scale: 2 Comment: mostly arms and shoulders with using walker Appearance Contact Precautions for Urine per nsg At beginning of treatment, pt in bathroom, agreeable to Physical Therapy session At end of session, pt supine in bed with head elevated, call light phone and bedside table within reach and watching TV Mental Status Patient Orientation: Normal For Age Attachments: Oxygen 3L O2/NC Transfers Therapy Code Descriptions/Definitions Functional [place] Measure: 0=Not Assessed/NA 4=Minimal Assistance 1=Total Assistance 5=Supervision or Setup 2=Maximal Assistance 6=Modified [place] 3=Moderate Assistance 7=Complete [place] Therapy Quality Codes: 6 Independent with activity with or without an assistive device 5 Patient requires set up or clean up by helper. Patient completes activity by themselves 4 Supervision or touching assist (CGA). [place] provide cues , steadying assist 3 The helper provides less than half the effort to complete the activity 2 The helper provides more than half the effort to complete the activity 1 Dependent. The helper does all the effort to complete an activity 7 Patient refused to complete or attempt activity 9 The patient did not perform the activity before the current illness or injury 88 Not attempted due to Medical conditions or safety concerns Transfers (B, C, W/C) (FIM): 5 Scootin Rollin Roll Left to Right (QC): 5 Supine to/from Sit: 5 Sit to/from Stand: 5 Sit to Lying (QC): 5 Sit to Stand (QC): 5 Pt becomes SOA with activity, min to mod effort from pt sit to supine, SBA Weight Bearing Right Lower Extremity: Right Full Weight Bearing Left Lower Extremity: Left Full Weight Bearing Gait Training Does the Patient Walk?: Yes Gait (FIM): 5 Distance (FIM): 3=150 ft Distance: 200 Walk 10 feet (QC): 5 Walk 50 ft with 2 Turns(QC): 5 Walk 150 ft (QC): 5 Gait Level of Assist: 5 Gait Persons Needed: 1 Gait Assistive Device: FWW SBA, slow shuffling gait, standing rest breaks required due to fatigue and SOA, c/o some pain/soreness in arms during gait and leans forearms on walker in a forward bent posture, 3L O2/nc Treatments transfer and gait training Assessment Current Status: Good Progress increased gait distance PT Fpc Goals Account Management Assistant Goals PT Fpc Goals Time Frame: Feb 04, 2018 Transfers (B,C,W/C) (FIM): 6 Sit to Lying (QC): 6 Lying-Sitting on Side/Bed(QC): 6 Sit to Stand (QC): 6 Rollin Roll Left to Right (QC): 6 Gait (FIM): 3 Gait distance (FIM): 3=150 ft Distance: 150' Walk 10 feet (QC): 6 Walk 50ft with 2 Turns (QC): 6 Walk 150 ft (QC): 6 Gait Level of Assist: 6 Gait Assistive Device: FWW PT Plan Problem List Problem List: Activity Tolerance, Functional Strength, Safety, Gait, Transfer Treatment/Plan Treatment Plan: Continue Plan of Care Treatment Plan: Bed Mobility, Education, Functional Activity [place], Functional Strength, Gait, Safety, Therapeutic Exercise, Transfers Treatment Duration: Feb 04, 2018 Frequency: 6 times per week Estimated Hrs Per Day: .25 hour per day Patient and/or Family Agrees t: Yes Safety Risks/Education Patient Education: Gait Training, Transfer Techniques, Safety Issues Teaching Recipient: Patient Teaching Methods: Discussion Response to Teaching: Verbalize Understanding Time/GCodes Time In: 1357 Time Out: 1414 Total Billed Treatment Time: 17 Total Billed Treatment 1 visit GT 17 min PAM LIM PTA Jan 26, 2018 14:17
--- NOTE | 2018-01-26 14:56 | Occupational Ther Daily Note ---
OT Current Status-Daily Note Subjective No pain reported. Pt. does verbalize that she gets SOA. Appearance Pt. up in chair. Agrees to work with OT. Mental Status/Objective Patient Orientation: Person, Place, Time, Situation Therapy Code Descriptions/Definitions Functional [place] Measure: 0=Not Assessed/NA 4=Minimal Assistance 1=Total Assistance 5=Supervision or Setup 2=Maximal Assistance 6=Modified [place] 3=Moderate Assistance 7=Complete [place] Attachments: Oxygen ADL-Treatment Therapy Code Descriptions/Definitions Functional [place] Measure: 0=Not Assessed/NA 4=Minimal Assistance 1=Total Assistance 5=Supervision or Setup 2=Maximal Assistance 6=Modified [place] 3=Moderate Assistance 7=Complete [place] Therapy Quality Codes: 6 Independent with activity with or without an assistive device 5 Patient requires set up or clean up by helper. Patient completes activity by themselves 4 Supervision or touching assist (CGA). [place] provide cues , steadying assist 3 The helper provides less than half the effort to complete the activity 2 The helper provides more than half the effort to complete the activity 1 Dependent. The helper does all the effort to complete an activity 7 Patient refused to complete or attempt activity 9 The patient did not perform the activity before the current illness or injury 88 Not attempted due to Medical conditions or safety concerns Lower Body Dressing (FIM): 2 (Pt. requires max assist for OT to don compression socks and shoes. Pt. states that at her assisted living facility, she has a chair that is much lower, and she can do it. However, if she has difficulty, they assist her there.) Lower Body Dressing (QC): 2 On/Off Footwear (QC): 2 Toileting (FIM): 5 (SBA to urinate and cleanse ibis area. Pt. able to pull down and up brief.) Toileting Hygiene (QC): 4 Transfers (B, C, W/C) (FIM): 5 (SBA to stand out of chair with walker and ambulate to bathroom.) Toilet/Commode Transfer (FIM): 5 Toilet Transfer (QC): 4 Other Treatment Pt. agrees to change clothing, but does not have street clothing available. Pt. ambulated to bathroom and able to change brief while seated on toilet. OT assists with applying fresh gown, compression socks, and shoes. Pt. stands with walker at sink to wash hands. Agrees to ambulate in [place] with walker for increased strengthening. Pt. ambulated with walker approximately 250 feet with SBA. Transferred back to chair in room and all needs met. Pt. on 3 L 02 throughout treatment session. Education OT Patient Education: Correct positioning, Energy conservation, Modified ADL techniques, Progress toward Goal/Update tx plan, Purpose of tx/functional activities, Reviewed precautions, Rehab process, Transfer techniques Teaching Recipient: Patient Teaching Methods: Demonstration, Discussion Response to Teaching: Verbalize Understanding, Return Demonstration OT Short Term Goals Short Term Goals 1=Demonstrate adherence to instructed precautions during ADL tasks. 2=Patient will verbalize/demonstrate understanding of assistive devices/ modifications for ADL. 3=Patient will improve strength/tolerance for activity to enable patient to perform ADL's. OT Long-Term Goals Loader Technician Goals Time Frame: Feb 04, 2018 Eating (FIM): 7 Eating (QC): 6 Groomin Oral Hygiene (QC): 6 Bathing(FIM): 4 Shower/Bathe Self (QC): 3 Upper Body Dressing(FIM): 5 Upper Body Dressing (QC): 5 Lower Body Dressing(FIM): 5 Lower Body Dressing (QC): 5 On/Off Footwear (QC): 3 Toileting(FIM): 6 Toileting Hygiene (QC): 6 Toilet/Commode Transfer(FIM): 6 Toilet/Commode Transfer (QC): 6 Shower Transfer(FIM): 5 Additional Goals: 1-Demonstrate ADL Tasks, 2-Verbalize Understanding, 3- ImproveStrength/[place] 1=Demonstrate adherence to instructed precautions during ADL tasks. 2=Patient will verbalize/demonstrate understanding of assistive devices/ modifications for ADL. 3=Patient will improve strength/tolerance for activity to enable patient to perform ADL's. OT Education/Plan Problem List/Assessment Assessment: Decreased Activ Tolerance, Decreased UE Strength, Impaired I ADL's , Impaired Self-Care Skills Pt would benefit from skilled OT to increase her independence in basic self care to allow her to safely return home Discharge Recommendations Plan/Recommendations: Continue POC Therapy D/C Recommendations: Assisted Living Treatment Plan/Plan of Care Treatment,Training & Education: Yes Patient would benefit from OT for education, treatment and training to promote independence in ADL's, mobility, safety and/or upper extremity function for ADL' s. Plan of Care: ADL Retraining, Functional Mobility, UE Funct Exercise/Act, UE Neuromus Re-Ed/Coord Treatment Duration: Feb 04, 2018 Frequency: 5 times per week Estimated Hrs Per Day: .5 hour per day Agreement: Yes Rehab Potential: Fair Time/GCodes Start Time: 11:25 Stop Time: 11:52 Total Time Billed (hr/min): 27 Billed Treatment Time 1, ADL x 15minutes, FA x 12minutes SELMA MAURICIO OT Jan 26, 2018 14:56
--- NOTE | 2018-01-26 15:03 | Cardiology Progress Note ---
Subjective Date Seen by Provider: Jan 26, 2018 Time Seen by Provider: 15:02 Subjective/Events-last exam Patient is in bed, feeling better, less dyspnea Review of Systems General: No Chills, No Night Sweats, No Fatigue, No Malaise, No Appetite, No Other HEENT: No Head Aches, No Visual Changes, No Eye Pain, No Ear Pain, No Dysphasia , No Sinus Congestion, No Post Nasal Drip, No Sore Throat, No Other Pulmonary: No Dyspnea, No Cough, No Pleuritic Chest Pain, No Other Cardiovascular: No: Chest Pain, Palpitations, Orthopnea, Paroxysmal Noc. Dyspnea, Edema, Lt Headedness, Other Objective-Cardiology Exam Last Set of Vital Signs Vital Signs 01/26/18 01/26/18 08:17 10:47 Temp 96.7 Pulse 65 Resp 20 B/P (MAP) 166/70 (102) Pulse Ox 95 O2 Delivery Nasal Cannula O2 Flow Rate 3.00 Capillary Refill : Less Than 3 Seconds I&O Intake and Output 01/26/18 00:00 Intake Total 1340 ml Output Total 800 ml Balance 540 ml Intake Oral 1340 ml Output Urine Total 800 ml # Voids 5 Daily Weight Change Unsure General: Alert, Oriented X3, Cooperative HEENT: Atraumatic, PERRLA Neck: Supple, No JVD, No Thyromegaly Lungs: Normal Air Movement, Other (bilateral rhonchi) Heart: Regular Rate, Normal S1, Normal S2, No Murmurs Abdomen: Normal Bowel Sounds, Soft, No Tenderness, No Hepatosplenomegaly, No Masses Extremities: No Clubbing, No Cyanosis, Normal Pulses, No Tenderness/Swelling, Other (mild edema) Skin: No Rashes, No Breakdown, No Significant Lesion Neuro: Normal Gait, Normal Speech, Strength at 5/5 X4 Ext, Normal Tone, Sensation Intact Psych/Mental Status: Mental Status NL, Mood NL A/P-Cardiology Admission Diagnosis COPD CAD HTN PVD Assessment/Plan Acute exacerbation of COPD, improving, wheezing has improved. Managed by primary care team Nonischemic cardiomyopathy, MUGA scan was done in November 2015 showing ejection fraction 55 percent, last echocardiogram showed ejection fraction 50-55 percent , dilated left atrium, moderate MR, PA 30 mmHg. Significant improvement, no signs of heart failure. Continue to monitor Mild coronary artery disease nonobstructive disease by cardiac catheterization done in May 2014. Continue to monitor at this time. Peripheral arterial disease, history of abdominal aortogram with angiogram to the lower extremities done by Dr. Cosme, reported to good vessel runoff to the lower extremities, medical therapy was recommended, repeat Peripheral runoff showed total occlusion of the anterior tibial artery and both lower extremities with brisk flow. It was done in March 2016, patient was referred by Dr. De Leon to [facility] and had angioplasty and stent done using drug-eluting stent Promus 3.524 mm to the anterior tibial artery on the right side with good results. Reporting healing ulcer. Feeling better. Continue to monitor Peripheral edema, chronic, lymphedema. Better at this time. Receiving therapy in [place], continue to monitor Hypertension, elevated, I will increase enalapril, continue to monitor. Moderate bilateral carotid stenosis, ultrasound was done in October 2016. Continue to monitor CREST syndrome, managed by her mechanical systems designer. History of multiple back and knee surgeries, continue to monitor Chronic renal insufficiency, seen and established with Dr. Saundra Craig History of elevated liver enzymes, followed by primary care physician Obesity, BMI is 48, patient was educated on weight loss DEVI LONDON MD Jan 26, 2018 15:02
[2018-01-26 18:00] VITALS: BP 179/79
[2018-01-26] MEDS: GABAPENTIN 300 MG (NEURONTIN) CAP PO SCH (20:13)
[2018-01-26] MEDS: SIMvastatin 20 MG (ZOCOR) TAB PO SCH (20:14)
[2018-01-26] MEDS: PANTOPRAZOLE 40 MG (PROTONIX) TAB PO SCH (20:14)
[2018-01-26] MEDS: VITAMIN D3 1,000 UNITS (CHOLECALCIFEROL) TABLET PO SCH (20:14)
[2018-01-27] MEDS: methylPREDNISolone 40 MG/ML (Solu-MEDROL) VIAL IV SCH ×4 (00:16→17:37)
[2018-01-27] MEDS: KCL 10 MEQ TAB (MICRO K) PO SCH ×2 (05:57→17:37)
[2018-01-27 06:08] VITALS: BP 172/72
[2018-01-27 08:43] VITALS: BP 179/82
[2018-01-27] MEDS: BUMETANIDE 1 MG (BUMEX) TAB PO SCH (08:58)
[2018-01-27] MEDS: LORATADINE (CLARITIN) 10 MG TAB PO SCH (08:58)
[2018-01-27] MEDS: ENALAPRIL 5 MG (VASOTEC) TAB PO SCH (08:58)
[2018-01-27] MEDS: CARVEDILOL 12.5 MG (COREG) TABLET PO SCH ×2 (08:58→22:26)
[2018-01-27] MEDS: CLOPIDOGREL 75 MG (PLAVIX) TABLET PO SCH (08:58)
[2018-01-27] MEDS: LACTULOSE SYRUP 10GM/15ML (ENULOSE) 30ML UDC PO SCH ×2 (08:58→22:26)
[2018-01-27] MEDS: DULoxetine 30 MG (CYMBALTA) CAP PO SCH (08:58)
[2018-01-27] MEDS: A & D OINT 60 GM TUBE TP SCH ×2 (08:59→22:32)
[2018-01-27] MEDS: RT-ALBUTEROL/IPRATROPIUM 3 ML (DUONEB) VIAL INH SCH ×4 (09:05→20:00)
--- NOTE | 2018-01-27 09:32 | Pulmonary Progress Note ---
TONI DAY MED STUDENT 01/27/18 0932: Subjective Date Seen by a Provider: Jan 27, 2018 Time Seen by a Provider: 09:30 Subjective/Events-last exam Patient reports she is feeling better each day, but not ready for discharge She is still requiring oxygen 3 L via nasal canula and experiencing SOB with exertion Review of Systems Pulmonary: Cough Sepsis Event Evaluation Height, Weight, BMI Height: 5'3.00" Weight: 278lbs. 0.0oz. 126.062669ie; 44.3 BMI Method:Stated Focused Exam Respiratory: Chest Non Tender, No Accessory Muscle Use, Wheezing Cardiovascular: Regular Rate, Rhythm, No Murmur Skin: normal color, warm/dry Exam Exam Vital Signs Date Time Temp Pulse Resp B/P (MAP) Pulse Ox O2 Delivery O2 Flow Rate FiO2 01/27/18 09:00 Nasal Cannula 3.00 01/27/18 08:43 96.6 74 20 179/82 (114) 94 Nasal Cannula 3.00 01/27/18 06:08 97.0 65 20 172/72 (105) 94 Nasal Cannula 3.00 01/26/18 21:00 Nasal Cannula 3.00 01/26/18 19:09 Nasal Cannula 3.00 01/26/18 19:04 97 Nasal Cannula 3.00 01/26/18 18:00 97.5 72 18 179/79 (112) 97 Nasal Cannula 3.00 01/26/18 15:35 96 Nasal Cannula 3.00 01/26/18 10:47 Nasal Cannula 3.00 I & O 01/27/18 07:00 Intake Total 1130 ml Output Total 1900 ml Balance -770 ml Height & Weight Height: 5'3.00" Weight: 278lbs. 0.0oz. 126.444691dp; 44.3 BMI Method:Stated General Appearance: No Apparent Distress, WD/WN, Chronically ill, Obese HEENT: PERRL/EOMI, Normal ENT Inspection, Pharynx Normal Neck: Full Range of Motion, Normal Inspection, Non Tender, Supple Respiratory: Chest Non Tender, No Accessory Muscle Use, No Respiratory Distress , Crackles, Wheezing Cardiovascular: Regular Rate, Rhythm, No Gallop, No JVD, No Murmur, Normal Peripheral Pulses Capillary Refill: Less Than 3 Seconds Gastrointestinal: normal bowel sounds, non tender, soft Extremity: Normal Capillary Refill Neurologic/Psychiatric: Alert, Oriented x3, No Motor/Sensory Deficits, Normal Mood/Affect Skin: Normal Color Lymphatic: No Adenopathy Assessment/Plan Assessment/Plan COPDAE -- Doubt pneumonia -SVNS, advair -Solumedrol IV Q6 -CXR reviewed shows mild basal infiltrates. Pulmonary edema -home bumex 1mg daily VALDO with OHS -Uses home CPAP Chronic lymphadenopathy CKD HX of ESBL and MRSA JORGE DORADO DO 01/27/18 0953: Subjective Time Seen by a Provider: 09:51 Subjective/Events-last exam PT complains of persistent SOB. Pt does not feel that she is ready to go home. Exam Exam General Appearance: No Apparent Distress, WD/WN, Obese HEENT: PERRL/EOMI, Normal ENT Inspection, Pharynx Normal Respiratory: Crackles, Wheezing Capillary Refill: Less Than 3 Seconds Gastrointestinal: normal bowel sounds, non tender, soft Extremity: Normal Capillary Refill Neurologic/Psychiatric: Alert Skin: Normal Color Lymphatic: No Adenopathy Assessment/Plan Assessment/Plan COPDAE -- Doubt pneumonia -SVNS, advair -Solumedrol IV Q6 -CXR reviewed shows mild basal infiltrates. Pulmonary edema -home bumex 1mg daily VALDO with OHS -Uses home CPAP Chronic lymphadenopathy CKD HX of ESBL and MRSA TONI DAY STUDENT Jan 27, 2018 09:32 JORGE DORADO DO Jan 27, 2018 09:53
[2018-01-27] MEDS: ADVAIR HFA 115/21 MCG INHALER 8 GM IH SCH ×2 (11:03→20:00)
--- NOTE | 2018-01-27 11:05 | Occupational Ther Daily Note ---
OT Current Status-Daily Note Subjective Pt. up in chair. Declines any pain. Appearance Pt. agrees to shower. Mental Status/Objective Patient Orientation: Person, Place, Time, Situation Therapy Code Descriptions/Definitions Functional [place] Measure: 0=Not Assessed/NA 4=Minimal Assistance 1=Total Assistance 5=Supervision or Setup 2=Maximal Assistance 6=Modified [place] 3=Moderate Assistance 7=Complete [place] Attachments: IV ADL-Treatment Therapy Code Descriptions/Definitions Functional [place] Measure: 0=Not Assessed/NA 4=Minimal Assistance 1=Total Assistance 5=Supervision or Setup 2=Maximal Assistance 6=Modified [place] 3=Moderate Assistance 7=Complete [place] Therapy Quality Codes: 6 Independent with activity with or without an assistive device 5 Patient requires set up or clean up by helper. Patient completes activity by themselves 4 Supervision or touching assist (CGA). [place] provide cues , steadying assist 3 The helper provides less than half the effort to complete the activity 2 The helper provides more than half the effort to complete the activity 1 Dependent. The helper does all the effort to complete an activity 7 Patient refused to complete or attempt activity 9 The patient did not perform the activity before the current illness or injury 88 Not attempted due to Medical conditions or safety concerns Grooming (FIM): 5 (Set up to brush teeth while in chair. Pt. fatigued and wanted to sit in chair to complete.) Oral Hygiene (QC): 5 Bathing (FIM): 3 (Pt. required assistance to wash bilateral LE and rear ibis area. Pt. unable to bend over this date to wash them herself.) Shower/Bathe Self (QC): 3 Upper Body (FIM): 3 (Pt. requires assistance to doff/don sports bra due to central line placemnt and decreased UE ROM.) Upper Body Dressing (QC): 3 Lower Body Dressing (FIM): 2 (Pt. fatigued and states that she can't reach her feet. Requires assistance to doff/don slipper socks, and assist to don compression socks.) Lower Body Dressing (QC): 2 On/Off Footwear (QC): 2 Transfers (B, C, W/C) (FIM): 5 (SBA with walker to transfer sit-stand and ambulate to bathroom.) Shower Transfer(FIM): 5 Education OT Patient Education: Correct positioning, Modified ADL techniques, Progress toward Goal/Update tx plan, Purpose of tx/functional activities, Reviewed precautions, Rehab process, Transfer techniques Teaching Recipient: Patient Teaching Methods: Demonstration, Discussion Response to Teaching: Verbalize Understanding, Return Demonstration OT Short Term Goals Short Term Goals 1=Demonstrate adherence to instructed precautions during ADL tasks. 2=Patient will verbalize/demonstrate understanding of assistive devices/ modifications for ADL. 3=Patient will improve strength/tolerance for activity to enable patient to perform ADL's. OT Mcc Goals Mcc Goals Time Frame: Feb 04, 2018 Eating (FIM): 7 Eating (QC): 6 Groomin Oral Hygiene (QC): 6 Bathing(FIM): 4 Shower/Bathe Self (QC): 3 Upper Body Dressing(FIM): 5 Upper Body Dressing (QC): 5 Lower Body Dressing(FIM): 5 Lower Body Dressing (QC): 5 On/Off Footwear (QC): 3 Toileting(FIM): 6 Toileting Hygiene (QC): 6 Toilet/Commode Transfer(FIM): 6 Toilet/Commode Transfer (QC): 6 Shower Transfer(FIM): 5 Additional Goals: 1-Demonstrate ADL Tasks, 2-Verbalize Understanding, 3- ImproveStrength/[place] 1=Demonstrate adherence to instructed precautions during ADL tasks. 2=Patient will verbalize/demonstrate understanding of assistive devices/ modifications for ADL. 3=Patient will improve strength/tolerance for activity to enable patient to perform ADL's. OT Education/Plan Problem List/Assessment Assessment: Decreased Activ Tolerance, Decreased UE Strength, Impaired I ADL's , Impaired Self-Care Skills, Restricted Funct UE ROM Pt would benefit from skilled OT to increase her independence in basic self care to allow her to safely return home Discharge Recommendations Plan/Recommendations: Continue POC Therapy D/C Recommendations: Assisted Living, Scheduled Assistance Treatment Plan/Plan of Care Treatment,Training & Education: Yes Patient would benefit from OT for education, treatment and training to promote independence in ADL's, mobility, safety and/or upper extremity function for ADL' s. Plan of Care: ADL Retraining, Functional Mobility, UE Funct Exercise/Act, UE Neuromus Re-Ed/Coord Treatment Duration: Feb 04, 2018 Frequency: 5 times per week Estimated Hrs Per Day: .5 hour per day Agreement: Yes Rehab Potential: Fair Time/GCodes Start Time: 09:30 Stop Time: 10:15 Total Time Billed (hr/min): 45 Billed Treatment Time 1, ADL x 45minutes SELMA MAURICIO OT Jan 27, 2018 11:04
--- NOTE | 2018-01-27 11:14 | Cardiology Progress Note ---
Subjective Date Seen by Provider: Jan 27, 2018 Time Seen by Provider: 11:13 Subjective/Events-last exam patient is sitting in a chair, feeling better, breathing better. Denied any pain Review of Systems General: No Chills, No Night Sweats, No Fatigue, No Malaise, No Appetite, No Other HEENT: No Head Aches, No Visual Changes, No Eye Pain, No Ear Pain, No Dysphasia , No Sinus Congestion, No Post Nasal Drip, No Sore Throat, No Other Pulmonary: Dyspnea; No Cough, No Pleuritic Chest Pain, No Other Cardiovascular: No: Chest Pain, Palpitations, Orthopnea, Paroxysmal Noc. Dyspnea, Edema, Lt Headedness, Other Objective-Cardiology Exam Last Set of Vital Signs Vital Signs 01/27/18 01/27/18 08:43 09:00 Temp 96.6 Pulse 74 Resp 20 B/P (MAP) 179/82 (114) Pulse Ox 94 O2 Delivery Nasal Cannula O2 Flow Rate 3.00 Capillary Refill : Less Than 3 Seconds I&O Intake and Output 01/27/18 00:00 Intake Total 1290 ml Output Total 1800 ml Balance -510 ml Intake Oral 1290 ml Output Urine Total 1800 ml General: Alert, Oriented X3, Cooperative HEENT: Atraumatic, PERRLA Neck: Supple, No JVD, No Thyromegaly Lungs: Normal Air Movement, Other (bilateral rhonchi) Heart: Regular Rate, Normal S1, Normal S2, No Murmurs Abdomen: Normal Bowel Sounds, Soft, No Tenderness, No Hepatosplenomegaly, No Masses Extremities: No Clubbing, No Cyanosis, Normal Pulses, No Tenderness/Swelling, Other (mild edema) Skin: No Rashes, No Breakdown, No Significant Lesion Neuro: Normal Gait, Normal Speech, Strength at 5/5 X4 Ext, Normal Tone, Sensation Intact Psych/Mental Status: Mental Status NL, Mood NL A/P-Cardiology Admission Diagnosis COPD CAD HTN PVD Assessment/Plan Acute exacerbation of COPD, improving, wheezing has improved. Managed by primary care team Nonischemic cardiomyopathy, MUGA scan was done in November 2015 showing ejection fraction 55 percent, last echocardiogram showed ejection fraction 50-55 percent , dilated left atrium, moderate MR, PA 30 mmHg. Significant improvement, no signs of heart failure. Continue to monitor Mild coronary artery disease nonobstructive disease by cardiac catheterization done in May 2014. Continue to monitor at this time. Peripheral arterial disease, history of abdominal aortogram with angiogram to the lower extremities done by Dr. Cosme, reported to good vessel runoff to the lower extremities, medical therapy was recommended, repeat Peripheral runoff showed total occlusion of the anterior tibial artery and both lower extremities with brisk flow. It was done in March 2016, patient was referred by Dr. De Leon to [facility] and had angioplasty and stent done using drug-eluting stent Promus 3.524 mm to the anterior tibial artery on the right side with good results. Reporting healing ulcer. Feeling better. Continue to monitor Peripheral edema, chronic, lymphedema. Better at this time. Receiving therapy in [place], continue to monitor Hypertension, I will change enalapril to lisinopril 10 mg daily and evaluate tolerance and response Moderate bilateral carotid stenosis, ultrasound was done in October 2016. Continue to monitor CREST syndrome, managed by her senior technical writer. History of multiple back and knee surgeries, continue to monitor Chronic renal insufficiency, seen and established with Dr. Saundra Craig History of elevated liver enzymes, followed by primary care physician Obesity, BMI is 48, patient was educated on weight loss DEVI LONDON MD Jan 27, 2018 11:14
[2018-01-27 11:25] LABS: BASOPHILS % (AUTO) 0 % (0-10); EOSINOPHILS % (AUTO) 0 % (0-10); HEMATOCRIT 38 % (35-52); HEMOGLOBIN 12.7 G/DL (11.5-16.0); LYMPHOCYTES # (AUTO) 0.5 X 10^3 (1.0-4.0); LYMPHOCYTES % (AUTO) 5 % (12-44); MEAN CORPUSCULAR HEMOGLOBIN 30 PG (25-34); MEAN CORPUSCULAR HGB CONC 34 G/DL (32-36); MEAN CORPUSCULAR VOLUME 90 FL (80-99); MEAN PLATELET VOLUME 10.7 FL (7.4-10.4); MONOCYTES # (AUTO) 0.5 X 10^3 (0.0-1.0); MONOCYTES % (AUTO) 5 % (0-12); NEUTROPHILS # (AUTO) 7.5 X 10^3 (1.8-7.8); NEUTROPHILS % (AUTO) 89 % (42-75); PLATELET COUNT 175 10^3/uL (130-400); RED BLOOD COUNT 4.23 10^6/uL (4.35-5.85); RED CELL DISTRIBUTION WIDTH 13.8 % (10.0-14.5); WHITE BLOOD COUNT 8.4 10^3/uL (4.3-11.0)
--- NOTE | 2018-01-27 11:29 | Progress Note-Hospitalist ---
SIENNA MADERA DO 01/27/18 1129: Subjective HPI/CC On Admission Date Seen by Provider: Jan 27, 2018 Time Seen by Provider: 11:00 Subjective/Events-last exam Patient overall feels better Less wheezing noted Steroids are tolerated BM+ Review of Systems General: Fatigue Objective Exam Vital Signs Vital Signs Date Time Temp Pulse Resp B/P (MAP) Pulse Ox O2 Delivery O2 Flow Rate FiO2 01/28/18 07:12 98 Nasal Cannula 2.00 01/28/18 05:12 97.8 69 17 154/46 (82) Capillary Refill : Less Than 3 Seconds General Appearance: No Apparent Distress, WD/WN, Chronically ill Respiratory: Chest Non Tender, No Accessory Muscle Use, No Respiratory Distress , Crackles, Decreased Breath Sounds, Wheezing Cardiovascular: Regular Rate, Rhythm, No Edema, No Gallop, No JVD, No Murmur, Normal Peripheral Pulses Neurologic/Psychiatric: Alert, Oriented x3, No Motor/Sensory Deficits, Normal Mood/Affect Results/Procedures Lab Laboratory Tests 01/27/18 11:15 01/28/18 05:00 Patient resulted labs reviewed. Assessment/Plan Assessment and Plan Assess & Plan/Chief Complaint Assessment: AECOP Wheezing requiring longer term IV steroids CHF diastolic type managed by Dr Carbajal Lymphedema h/o ARF due to diuretics VALDO intolerant to CPAP Obesity hypoventilation syndrome Plan: O2 Nebs IV steroids Diagnosis/Problems Diagnosis/Problems (1) Wheezing Status: Acute (2) Obesity hypoventilation syndrome Status: Chronic (3) Renal insufficiency Status: Chronic (4) Essential (primary) hypertension Status: Chronic (5) VALDO on CPAP Status: Chronic (6) Lymphedema Status: Chronic (7) COPD exacerbation Status: Acute (8) CHF (congestive heart failure) Status: Acute JIMBO RUSS MED STUDENT 01/27/18 1247: Subjective Subjective/Events-last exam Patient states that she is feeling better She states that she is not sleeping well She is complaining of upper back and neck pain Objective Exam General Appearance: No Apparent Distress, WD/WN Respiratory: Chest Non Tender, Lungs Clear, Normal Breath Sounds, No Accessory Muscle Use, No Respiratory Distress Cardiovascular: Regular Rate, Rhythm, No Edema, No Gallop, No JVD, No Murmur Gastrointestinal: Normal Bowel Sounds Neurologic/Psychiatric: Alert, Oriented x3, No Motor/Sensory Deficits, Normal Mood/Affect Skin: Normal Color, Warm/Dry Assessment/Plan Assessment and Plan Assess & Plan/Chief Complaint Assessment: 1) COPD exacerbation 2) CHF 3) VALDO 4) obesity Plan: 1) Continue IV steroids 2) Continue breathing treatments 3) continue O2 SIENNA MADERA DO Jan 27, 2018 11:29 JIMBO RUSS MED STUDENT Jan 27, 2018 12:47
[2018-01-27 11:43] LABS: BAND NEUTROPHILS 0 %; BASOPHILS % (MANUAL) 0 %; EOSINOPHILS % (MANUAL) 0 %; LYMPHOCYTES % (MANUAL) 9 %; MONOCYTES % (MANUAL) 2 %; NEUTROPHILS % (MANUAL) 85 %
[2018-01-27 11:44] LABS: ELLIPT/OVALOCYTES SLIGHT; POIKILOCYTOSIS SLIGHT; REACTIVE LYMPHOCYTES 4 %; TOXIC GRANULATION/VACUOLAZATIO 1+
[2018-01-27 11:45] LABS: PLATELET CLUMPS SLIGHT
[2018-01-27 11:46] LABS: ALBUMIN 3.4 GM/DL (3.2-4.5); BILIRUBIN,TOTAL 0.9 MG/DL (0.1-1.0); CALCIUM 9.2 MG/DL (8.5-10.1); CREATININE SERUM 0.92 MG/DL (0.60-1.30); POTASSIUM 3.6 MMOL/L (3.6-5.0); TOTAL PROTEIN 5.8 GM/DL (6.4-8.2)
--- NOTE | 2018-01-27 11:55 | Physical Therapy Daily Note ---
PT Daily Note-Current Subjective Pt awake in chair watching tv when PT arrived. Pt agreed to get up and walk with PT. Pain Numeric Pain Scale: 0-No Pain Location: No Pain Reported Mental Status Patient Orientation: Normal For Age Attachments: Oxygen Transfers Therapy Code Descriptions/Definitions Functional [place] Measure: 0=Not Assessed/NA 4=Minimal Assistance 1=Total Assistance 5=Supervision or Setup 2=Maximal Assistance 6=Modified [place] 3=Moderate Assistance 7=Complete [place] Therapy Quality Codes: 6 Independent with activity with or without an assistive device 5 Patient requires set up or clean up by helper. Patient completes activity by themselves 4 Supervision or touching assist (CGA). Corder provide cues , steadying assist 3 The helper provides less than half the effort to complete the activity 2 The helper provides more than half the effort to complete the activity 1 Dependent. The helper does all the effort to complete an activity 7 Patient refused to complete or attempt activity 9 The patient did not perform the activity before the current illness or injury 88 Not attempted due to Medical conditions or safety concerns Transfers (B, C, W/C) (FIM): 5 Scootin Sit to/from Stand: 5 Weight Bearing Right Lower Extremity: Right Full Weight Bearing Left Lower Extremity: Left Full Weight Bearing Gait Training Gait (FIM): 5 Distance (FIM): 3=150 ft Distance: 150' Walk 10 feet (QC): 5 Walk 50 ft with 2 Turns(QC): 5 Walk 150 ft (QC): 5 Gait Level of Assist: 5 Gait Persons Needed: 1 Gait Assistive Device: FWW Exercises Seated Therapy Exercises: Kicking activity Seated Reps: 15 Assessment Pt able to perform kicking activity with LEs prior to walking. Pt ambulated for 150' with a FWW requiring SBA on 2L of oxygen. Pt shows signs of fatigue and must flex at hips and lean on walker during ambulation. Pt will continue therapy to improve endurance and ambulation for functional activities. PT Short Term Goals Short Term Goals Time Frame: Jan 27, 2018 PT Sap Data Architect Goals [facility] Goals PT [facility] Goals Time Frame: Feb 04, 2018 Transfers (B,C,W/C) (FIM): 6 Sit to Lying (QC): 6 Lying-Sitting on Side/Bed(QC): 6 Sit to Stand (QC): 6 Rollin Roll Left to Right (QC): 6 Gait (FIM): 3 Gait distance (FIM): 3=150 ft Distance: 150' Walk 10 feet (QC): 6 Walk 50ft with 2 Turns (QC): 6 Walk 150 ft (QC): 6 Gait Level of Assist: 6 Gait Assistive Device: FWW PT Plan Problem List Problem List: Activity Tolerance, Functional Strength, Balance, Gait, Transfer , Bed Mobility Treatment/Plan Treatment Plan: Continue Plan of Care Treatment Plan: Bed Mobility, Education, Functional Activity [place], Functional Strength, Gait, Safety, Therapeutic Exercise, Transfers Treatment Duration: Feb 04, 2018 Frequency: 6 times per week Estimated Hrs Per Day: .25 hour per day Patient and/or Family Agrees t: Yes Time/GCodes Time In: 1128 Time Out: 1143 Total Billed Treatment Time: 15 Total Billed Treatment 1 Visit FA- 15' GARO NICK PT Jan 27, 2018 11:55
[2018-01-27] MEDS: HYDROXYCHLOROQUINE 200 MG (PLAQUENIL) TAB PO SCH ×2 (12:24→17:45)
[2018-01-27] MEDS: lisINopril 10 MG (PRINIVIL) TABLET PO SCH (12:24)
[2018-01-27 18:00] VITALS: BP 148/94
[2018-01-27] MEDS: GABAPENTIN 300 MG (NEURONTIN) CAP PO SCH (22:26)
[2018-01-27] MEDS: PANTOPRAZOLE 40 MG (PROTONIX) TAB PO SCH (22:27)
[2018-01-27] MEDS: SIMvastatin 20 MG (ZOCOR) TAB PO SCH (22:28)
[2018-01-27] MEDS: VITAMIN D3 1,000 UNITS (CHOLECALCIFEROL) TABLET PO SCH (22:32)
[2018-01-28] MEDS: methylPREDNISolone 40 MG/ML (Solu-MEDROL) VIAL IV SCH ×4 (00:52→17:49)
[2018-01-28 05:05] LABS: HEMOGLOBIN 12.4 G/DL (11.5-16.0); MEAN PLATELET VOLUME 10.8 FL (7.4-10.4); RED BLOOD COUNT 4.23 10^6/uL (4.35-5.85); RED CELL DISTRIBUTION WIDTH 13.5 % (10.0-14.5); WHITE BLOOD COUNT 7.9 10^3/uL (4.3-11.0)
[2018-01-28 05:12] VITALS: BP 154/46
[2018-01-28 05:24] LABS: ALANINE AMINOTRANSFERASE 17 U/L (0-55); ALBUMIN 3.2 GM/DL (3.2-4.5); ALKALINE PHOSPHATASE 45 U/L (40-136); BILIRUBIN,TOTAL 0.9 MG/DL (0.1-1.0); BUN/CREATININE RATIO 34; CARBON DIOXIDE 28 MMOL/L (21-32); CHLORIDE 101 MMOL/L (98-107); CREATININE SERUM 0.86 MG/DL (0.60-1.30); GFR ESTIMATED > 60; GLUCOSE 134 MG/DL (70-105); POTASSIUM 3.8 MMOL/L (3.6-5.0); SODIUM 138 MMOL/L (135-145); TOTAL PROTEIN 5.3 GM/DL (6.4-8.2)
[2018-01-28] MEDS: KCL 10 MEQ TAB (MICRO K) PO SCH ×2 (06:12→17:49)
[2018-01-28] MEDS: ADVAIR HFA 115/21 MCG INHALER 8 GM IH SCH ×2 (07:12→20:10)
[2018-01-28] MEDS: RT-ALBUTEROL/IPRATROPIUM 3 ML (DUONEB) VIAL INH SCH ×4 (07:12→20:10)
[2018-01-28 08:00] VITALS: BP 177/83
--- NOTE | 2018-01-28 08:44 | Pulmonary Progress Note ---
TONI DAY MED STUDENT 01/28/18 0844: Subjective Date Seen by a Provider: Jan 28, 2018 Time Seen by a Provider: 08:44 Subjective/Events-last exam Patient reports she is feeling better and may be close to ready to go home. Sepsis Event Evaluation Height, Weight, BMI Height: 5'3.00" Weight: 278lbs. 0.0oz. 126.135515gz; 44.3 BMI Method:Stated Exam Exam Vital Signs Date Time Temp Pulse Resp B/P (MAP) Pulse Ox O2 Delivery O2 Flow Rate FiO2 01/28/18 07:12 98 Nasal Cannula 2.00 01/28/18 05:12 97.8 69 17 154/46 (82) 94 Nasal Cannula 3.00 01/27/18 21:00 Nasal Cannula 3.00 01/27/18 20:09 99 Nasal Cannula 2.00 01/27/18 20:00 98 Nasal Cannula 2.00 01/27/18 18:00 97.0 71 14 148/94 (112) 97 Nasal Cannula 3.00 01/27/18 15:20 96.6 01/27/18 11:14 92 Room Air 01/27/18 09:00 Nasal Cannula 3.00 01/27/18 08:43 96.6 74 20 179/82 (114) 94 Nasal Cannula 3.00 I & O 01/28/18 07:00 Intake Total 1910 ml Output Total 2556 ml Balance -646 ml Height & Weight Height: 5'3.00" Weight: 278lbs. 0.0oz. 126.338178ht; 44.3 BMI Method:Stated General Appearance: No Apparent Distress, WD/WN HEENT: PERRL/EOMI, Normal ENT Inspection, Pharynx Normal Neck: Full Range of Motion, Normal Inspection, Non Tender, Supple Respiratory: Chest Non Tender, Lungs Clear, Normal Breath Sounds, No Accessory Muscle Use, No Respiratory Distress Cardiovascular: Regular Rate, Rhythm, No Edema, No Gallop, No JVD, No Murmur Capillary Refill: Less Than 3 Seconds Gastrointestinal: normal bowel sounds, non tender, soft Extremity: Normal Capillary Refill Neurologic/Psychiatric: Alert, Oriented x3, No Motor/Sensory Deficits, Normal Mood/Affect Skin: Normal Color, Warm/Dry Lymphatic: No Adenopathy Results Lab Laboratory Tests 01/27/18 11:15 01/28/18 05:00 Assessment/Plan Assessment/Plan COPDAE -- Doubt pneumonia -condition slowly improving -SVNS, advair -Solumedrol IV Q6 -CXR reviewed shows mild basal infiltrates. Pulmonary edema -home bumex 1mg daily VALDO with OHS -Uses home CPAP Chronic lymphadenopathy CKD HX of ESBL and MRSA JORGE DORADO DO 01/28/18 0847: Subjective Time Seen by a Provider: 08:46 Subjective/Events-last exam Pt doing better. No complications noted. Exam Exam General Appearance: No Apparent Distress, WD/WN HEENT: PERRL/EOMI, Normal ENT Inspection, Pharynx Normal Neck: Full Range of Motion, Normal Inspection, Non Tender, Supple Respiratory: Chest Non Tender, Lungs Clear, Normal Breath Sounds, No Accessory Muscle Use, No Respiratory Distress Cardiovascular: Regular Rate, Rhythm, No Edema, No Gallop, No JVD, No Murmur Gastrointestinal: normal bowel sounds, non tender, soft Extremity: Normal Capillary Refill Neurologic/Psychiatric: Alert, Oriented x3, No Motor/Sensory Deficits, Normal Mood/Affect Assessment/Plan Assessment/Plan COPDAE -- Doubt pneumonia -condition slowly improving -SVNS, advair -Solumedrol IV Q6 Pulmonary edema -home bumex 1mg daily VALDO with OHS -Uses home CPAP Chronic lymphadenopathy CKD HX of ESBL and MRSA TONI DAY MED STUDENT Jan 28, 2018 08:44 JORGE DORADO DO Jan 28, 2018 08:47
--- NOTE | 2018-01-28 08:57 | Cardiology Progress Note ---
Subjective Date Seen by Provider: Jan 28, 2018 Time Seen by Provider: 08:56 Subjective/Events-last exam Patient is in bed, feeling better, breathing better Review of Systems General: No Chills, No Night Sweats, No Fatigue, No Malaise, No Appetite, No Other HEENT: No Head Aches, No Visual Changes, No Eye Pain, No Ear Pain, No Dysphasia , No Sinus Congestion, No Post Nasal Drip, No Sore Throat, No Other Pulmonary: Dyspnea, Cough; No Pleuritic Chest Pain, No Other Cardiovascular: No: Chest Pain, Palpitations, Orthopnea, Paroxysmal Noc. Dyspnea, Edema, Lt Headedness, Other Objective-Cardiology Exam Last Set of Vital Signs Vital Signs 01/28/18 01/28/18 05:12 07:12 Temp 97.8 Pulse 69 Resp 17 B/P (MAP) 154/46 (82) Pulse Ox 98 O2 Delivery Nasal Cannula O2 Flow Rate 2.00 Capillary Refill : Less Than 3 Seconds I&O Intake and Output 01/28/18 00:00 Intake Total 1450 ml Output Total 2206 ml Balance -756 ml Intake Oral 1450 ml Output Urine Total 2206 ml # Bowel Movements 1 General: Alert, Oriented X3, Cooperative HEENT: Atraumatic, PERRLA Neck: Supple, No JVD, No Thyromegaly Lungs: Normal Air Movement, Other (bilateral rhonchi) Heart: Regular Rate, Normal S1, Normal S2, No Murmurs Abdomen: Normal Bowel Sounds, Soft, No Tenderness, No Hepatosplenomegaly, No Masses Extremities: No Clubbing, No Cyanosis, Normal Pulses, No Tenderness/Swelling, Other (mild edema) Skin: No Rashes, No Breakdown, No Significant Lesion Neuro: Normal Gait, Normal Speech, Strength at 5/5 X4 Ext, Normal Tone, Sensation Intact Psych/Mental Status: Mental Status NL, Mood NL Results Lab Laboratory Tests 01/27/18 11:15 01/28/18 05:00 A/P-Cardiology Admission Diagnosis COPD CAD HTN PVD Assessment/Plan Acute exacerbation of COPD, improving, wheezing is improving. Receiving steroids. Nonischemic cardiomyopathy, MUGA scan was done in November 2015 showing ejection fraction 55 percent, last echocardiogram showed ejection fraction 50-55 percent , dilated left atrium, moderate MR, PA 30 mmHg. Significant improvement, no signs of heart failure. Continue to monitor Mild coronary artery disease nonobstructive disease by cardiac catheterization done in May 2014. Continue to monitor at this time. Peripheral arterial disease, history of abdominal aortogram with angiogram to the lower extremities done by Dr. Cosme, reported to good vessel runoff to the lower extremities, medical therapy was recommended, repeat Peripheral runoff showed total occlusion of the anterior tibial artery and both lower extremities with brisk flow. It was done in March 2016, patient was referred by Dr. De Leon to [facility] and had angioplasty and stent done using drug-eluting stent Promus 3.524 mm to the anterior tibial artery on the right side with good results. Reporting healing ulcer. Feeling better. Continue to monitor Peripheral edema, chronic, lymphedema. Better at this time. Receiving therapy in [place], continue to monitor Hypertension, elevated blood pressure, patient is on IV steroids, continue to monitor blood pressure and continue current medications at this time Moderate bilateral carotid stenosis, ultrasound was done in October 2016. Continue to monitor CREST syndrome, managed by her pipe roller. History of multiple back and knee surgeries, continue to monitor Chronic renal insufficiency, seen and established with Dr. Saundra Craig History of elevated liver enzymes, followed by primary care physician Obesity, BMI is 48, patient was educated on weight loss DEVI LONDON MD Jan 28, 2018 08:57
[2018-01-28] MEDS ORDERED: lisINopril 10 MG (PRINIVIL) TABLET PO SCH (09:00)
[2018-01-28] MEDS: DULoxetine 30 MG (CYMBALTA) CAP PO SCH (09:13)
[2018-01-28] MEDS: LACTULOSE SYRUP 10GM/15ML (ENULOSE) 30ML UDC PO SCH ×2 (09:13→19:54)
[2018-01-28] MEDS: CLOPIDOGREL 75 MG (PLAVIX) TABLET PO SCH (09:13)
[2018-01-28] MEDS: BUMETANIDE 1 MG (BUMEX) TAB PO SCH (09:13)
[2018-01-28] MEDS: CARVEDILOL 12.5 MG (COREG) TABLET PO SCH ×2 (09:13→19:54)
[2018-01-28] MEDS: LORATADINE (CLARITIN) 10 MG TAB PO SCH (09:13)
[2018-01-28] MEDS: lisINopril 10 MG (PRINIVIL) TABLET PO SCH (09:13)
[2018-01-28] MEDS: A & D OINT 60 GM TUBE TP SCH ×2 (09:13→19:54)
--- NOTE | 2018-01-28 10:01 | Occupational Ther Daily Note ---
OT Current Status-Daily Note Subjective Pt alert, sitting in recliner. Pt agrees to therapy. No c/o pain at this time. Mental Status/Objective Patient Orientation: Person, Place, Time, Situation Therapy Code Descriptions/Definitions Functional [place] Measure: 0=Not Assessed/NA 4=Minimal Assistance 1=Total Assistance 5=Supervision or Setup 2=Maximal Assistance 6=Modified [place] 3=Moderate Assistance 7=Complete [place] ADL-Treatment Assist to don compression stockings. Pt unable to don/doff socks, assist to complete. After therapy, pt sitting in recliner with call light/phone in reach. All needs met in room. Therapy Code Descriptions/Definitions Functional [place] Measure: 0=Not Assessed/NA 4=Minimal Assistance 1=Total Assistance 5=Supervision or Setup 2=Maximal Assistance 6=Modified [place] 3=Moderate Assistance 7=Complete [place] Therapy Quality Codes: 6 Independent with activity with or without an assistive device 5 Patient requires set up or clean up by helper. Patient completes activity by themselves 4 Supervision or touching assist (CGA). [place] provide cues , steadying assist 3 The helper provides less than half the effort to complete the activity 2 The helper provides more than half the effort to complete the activity 1 Dependent. The helper does all the effort to complete an activity 7 Patient refused to complete or attempt activity 9 The patient did not perform the activity before the current illness or injury 88 Not attempted due to Medical conditions or safety concerns Toileting (FIM): 6 (Using grabbars and FWW pt able to complete by self.) Toileting Hygiene (QC): 6 Transfers (B, C, W/C) (FIM): 6 Toilet/Commode Transfer (FIM): 6 (Using FWW and grabbars pt able to complete by self.) Toilet Transfer (QC): 6 OT Short Term Goals Short Term Goals 1=Demonstrate adherence to instructed precautions during ADL tasks. 2=Patient will verbalize/demonstrate understanding of assistive devices/ modifications for ADL. 3=Patient will improve strength/tolerance for activity to enable patient to perform ADL's. OT Translator Deaf Goals Translator Deaf Goals Time Frame: Feb 04, 2018 Eating (FIM): 7 Eating (QC): 6 Groomin Oral Hygiene (QC): 6 Bathing(FIM): 4 Shower/Bathe Self (QC): 3 Upper Body Dressing(FIM): 5 Upper Body Dressing (QC): 5 Lower Body Dressing(FIM): 5 Lower Body Dressing (QC): 5 On/Off Footwear (QC): 3 Toileting(FIM): 6 Toileting Hygiene (QC): 6 Toilet/Commode Transfer(FIM): 6 Toilet/Commode Transfer (QC): 6 Shower Transfer(FIM): 5 Additional Goals: 1-Demonstrate ADL Tasks, 2-Verbalize Understanding, 3- ImproveStrength/[place] 1=Demonstrate adherence to instructed precautions during ADL tasks. 2=Patient will verbalize/demonstrate understanding of assistive devices/ modifications for ADL. 3=Patient will improve strength/tolerance for activity to enable patient to perform ADL's. OT Education/Plan Problem List/Assessment Pt would benefit from skilled OT to increase her independence in basic self care to allow her to safely return home Discharge Recommendations Plan/Recommendations: Continue POC Treatment Plan/Plan of Care Patient would benefit from OT for education, treatment and training to promote independence in ADL's, mobility, safety and/or upper extremity function for ADL' s. Plan of Care: ADL Retraining, Functional Mobility, UE Funct Exercise/Act, UE Neuromus Re-Ed/Coord Treatment Duration: Feb 04, 2018 Frequency: 5 times per week Estimated Hrs Per Day: .5 hour per day Agreement: Yes Rehab Potential: Fair Time/GCodes Start Time: 09:36 Stop Time: 09:56 Total Time Billed (hr/min): 20 Billed Treatment Time 1 visit-ADL 1 (20 min) MORELIA LESLIE Jan 28, 2018 10:00
--- NOTE | 2018-01-28 11:06 | Progress Note-Hospitalist ---
Subjective HPI/CC On Admission Date Seen by Provider: Jan 28, 2018 Time Seen by Provider: 10:30 Subjective/Events-last exam Patient wants to go home but still wheezing Just finished with physical therapy Overall very difficult case considering severe obesity hypoventilation syndrome now with exacerbation of COPD Overall feels well otherwise Labs noted yesterday were normal Review of Systems Pulmonary: Dyspnea Objective Exam Vital Signs Vital Signs Date Time Temp Pulse Resp B/P (MAP) Pulse Ox O2 Delivery O2 Flow Rate FiO2 01/28/18 10:17 94 Nasal Cannula 2.00 01/28/18 08:00 97.8 71 20 177/83 (114) Capillary Refill : Less Than 3 Seconds General Appearance: No Apparent Distress, WD/WN, Chronically ill Respiratory: No Accessory Muscle Use, No Respiratory Distress, Decreased Breath Sounds, Wheezing Neurologic/Psychiatric: Alert, Oriented x3, No Motor/Sensory Deficits, Normal Mood/Affect Results/Procedures Lab Laboratory Tests 01/28/18 05:00 Patient resulted labs reviewed. Assessment/Plan Assessment and Plan Assess & Plan/Chief Complaint Assessment: AECOP Wheezing requiring longer term IV steroids CHF diastolic type managed by Dr Carbajal Lymphedema h/o ARF due to diuretics VALDO intolerant to CPAP Obesity hypoventilation syndrome Plan: O2 Nebs IV steroids Diagnosis/Problems Diagnosis/Problems (1) Wheezing Status: Acute (2) Obesity hypoventilation syndrome Status: Chronic (3) Renal insufficiency Status: Chronic (4) Essential (primary) hypertension Status: Chronic (5) VALDO on CPAP Status: Chronic (6) Lymphedema Status: Chronic (7) COPD exacerbation Status: Acute (8) CHF (congestive heart failure) Status: Acute SIENNA MADERA DO Jan 28, 2018 11:06
[2018-01-28] MEDS: HYDROXYCHLOROQUINE 200 MG (PLAQUENIL) TAB PO SCH ×2 (11:56→17:49)
--- NOTE | 2018-01-28 12:02 | Physical Therapy Daily Note ---
PT Daily Note-Current Subjective Patient agrees to PT. No c/o. Pain Numeric Pain Scale: 0-No Pain Location: No Pain Reported Mental Status Patient Orientation: Normal For Age Attachments: Oxygen Transfers Therapy Code Descriptions/Definitions Functional [place] Measure: 0=Not Assessed/NA 4=Minimal Assistance 1=Total Assistance 5=Supervision or Setup 2=Maximal Assistance 6=Modified [place] 3=Moderate Assistance 7=Complete [place] Therapy Quality Codes: 6 Independent with activity with or without an assistive device 5 Patient requires set up or clean up by helper. Patient completes activity by themselves 4 Supervision or touching assist (CGA). [place] provide cues , steadying assist 3 The helper provides less than half the effort to complete the activity 2 The helper provides more than half the effort to complete the activity 1 Dependent. The helper does all the effort to complete an activity 7 Patient refused to complete or attempt activity 9 The patient did not perform the activity before the current illness or injury 88 Not attempted due to Medical conditions or safety concerns Transfers (B, C, W/C) (FIM): 6 Scootin Sit to/from Stand: 6 Sit to Stand (QC): 6 Weight Bearing Right Lower Extremity: Right Full Weight Bearing Left Lower Extremity: Left Full Weight Bearing Gait Training Does the Patient Walk?: Yes Gait (FIM): 6 Distance (FIM): 3=150 ft Distance: >400' Walk 10 feet (QC): 6 Walk 50 ft with 2 Turns(QC): 6 Walk 150 ft (QC): 6 Gait Level of Assist: 6 Gait Assistive Device: FWW slow, steady, functional gait sequence/does lean UE's on FWW secondary to bilateral shoulder fatigue Assessment Patient progressing with treatment plan. Will dismiss to [place] next week. PT to continue to address functional mobility. PT Short Term Goals Short Term Goals Time Frame: Jan 27, 2018 PT Inspector Wreath Goals Inspector Wreath Goals PT Correction Goals Time Frame: Feb 04, 2018 Transfers (B,C,W/C) (FIM): 6 Sit to Lying (QC): 6 Lying-Sitting on Side/Bed(QC): 6 Sit to Stand (QC): 6 Rollin Roll Left to Right (QC): 6 Gait (FIM): 3 Gait distance (FIM): 3=150 ft Distance: 150' Walk 10 feet (QC): 6 Walk 50ft with 2 Turns (QC): 6 Walk 150 ft (QC): 6 Gait Level of Assist: 6 Gait Assistive Device: FWW PT Plan Treatment/Plan Treatment Plan: Continue Plan of Care Treatment Plan: Bed Mobility, Education, Functional Activity [place], Functional Strength, Gait, Safety, Therapeutic Exercise, Transfers Treatment Duration: Feb 04, 2018 Frequency: 6 times per week Estimated Hrs Per Day: .25 hour per day Patient and/or Family Agrees t: Yes Time/GCodes Time In: 955 Time Out: 1010 Total Billed Treatment Time: 15 Total Billed Treatment 1 visit FA 15 min GARO NICK PT Jan 28, 2018 12:02
[2018-01-28 18:00] VITALS: BP 140/86
[2018-01-28] MEDS: VITAMIN D3 1,000 UNITS (CHOLECALCIFEROL) TABLET PO SCH (19:53)
[2018-01-28] MEDS: SIMvastatin 20 MG (ZOCOR) TAB PO SCH (19:53)
[2018-01-28] MEDS: PANTOPRAZOLE 40 MG (PROTONIX) TAB PO SCH (19:53)
[2018-01-28] MEDS: GABAPENTIN 300 MG (NEURONTIN) CAP PO SCH (19:54)
[2018-01-28] MEDS ORDERED: LORazepam INJ 2 MG/ML (ATIVAN) VIAL ONE ×2 (23:28→23:38)
--- NOTE | 2018-01-28 23:28 | Inpatient Code Blue ---
General Stated Complaint: SWB,WHEEZING Source: other (Nursing staff) History of Present Illness Date Seen by Provider: Jan 28, 2018 Time Seen by Provider: 23:06 Initial Comments Code blue was activated to patient's room for unresponsive state and loss of pulse after a seizure. Patient had seizure activity for about 1 minute. Patient became apneic and cyanotic after the seizure. She was found to be pulseless. Chest compressions were conducted by nursing staff for approximately 2 minutes before regaining pulse. Compression were terminated by the time of my arrival. Patient was unresponsive. Code blue was terminated. Patient has no history of seizures. FSBS was 127. Allergies and Home Medications Allergies Coded Allergies: NSAIDS (Non-Steroidal Anti-Inflamma (Unverified Allergy, Mild, 03/18/09) Penicillins (Verified Allergy, Unknown, 01/03/06) Sulfa (Sulfonamide Antibiotics) (Verified Allergy, Unknown, 01/03/06) aspirin (Verified Allergy, Unknown, 01/03/06) carbamazepine (Verified Allergy, Unknown, 09/20/06) cephalexin (Verified Allergy, Unknown, 01/03/06) iodine (Verified Allergy, Unknown, 01/03/06) latex (Unverified Allergy, Unknown, 06/21/13) Home Medications Allopurinol 100 Mg Tablet, 100 MG PO DAILY, (Reported) Ascorbate Calcium 500 Mg Tablet, 500 MG PO DAILY, (Reported) Bumetanide 1 Mg Tablet, 1 MG PO DAILY, (Reported) Carvedilol 12.5 Mg Tablet, 12.5 MG PO BID, (Reported) Cetirizine HCl 10 Mg Tablet, 10 MG PO DAILY, (Reported) Cholecalciferol (Vitamin D3) 2,000 Unit Capsule, 2,000 UNIT PO HS, (Reported) Clopidogrel Bisulfate 75 Mg Tablet, 75 MG PO DAILY, (Reported) Cranberry Fruit 400 Mg Tablet, 400 MG PO BID, (Reported) Duloxetine HCl 60 Mg Capsule.dr, 60 MG PO DAILY, (Reported) Enalapril Maleate 5 Mg Tablet, 2.5 MG PO DAILY, (Reported) TAKES 1/2 (5MG) TABLET Esomeprazole Magnesium 40 Mg Cap, 40 MG PO HS, (Reported) Fluticasone Propionate 16 Gm Commodore.susp, 1 SPRAY NS DAILY PRN for ALLERGIES, ( Reported) Fluticasone/Salmeterol 1 Each Blst.w.dev, 1 PUFF IH BID, (Reported) Gabapentin 300 Mg Capsule, 300 MG PO HS, (Reported) Guaifenesin/Codeine Phosphate 473 Ml Liquid, 5 ML PO Q6H PRN for COUGH, ( Reported) Guaifenesin/Dextromethorphan 5 Ml Syrup, 5 ML PO Q6H PRN for COUGH, (Reported) Hydrocortisone Butyrate 15 Gm Cream..g., TP BID PRN for INFLAMMATION, (Reported) Hydroxychloroquine Sulfate 200 Mg Tablet, 200 MG PO 1200,1700, (Reported) Ipratropium [place] 0.2 Mg/1 Ml Solution, 0.2 MG NEB TID PRN for SHORTNESS OF BREATH, (Reported) Menthol/Lanolin/Calamine/Znox 71 Gm Oint, TP UD PRN for IRRITATION, (Reported) APPLY TO JARETT AREA Nitrofurantoin Macrocrystal 100 Mg Capsule, 100 MG PO 1700, (Reported) Oxycodone HCl 20 Mg Tablet, 20 MG PO Q6H PRN for PAIN-SEVERE, (Reported) Oxycodone HCl 20 Mg Tablet, 20 MG PO 10/06/23, (Reported) Potassium Chloride 10 Meq Capsule.er, 20 MEQ PO 1200,1700, (Reported) TAKES 2 (10MEQ) CAPSULES Simvastatin 20 Mg Tablet, 20 MG PO HS, (Reported) Tolterodine Tartrate 4 Mg Cap, 4 MG PO DAILY, (Reported) Vitamin A & D 60 Gm Oint, TP DAILY PRN, (Reported) APPLY TO BLE & FEET Patient Home Medication List Home Medication List Reviewed: Yes Physical Exam Vital Signs Vital Signs - First Documented 01/25/18 01/25/18 11:15 18:00 Temp 97.9 Pulse 74 Resp 22 B/P (MAP) 197/81 (119) Pulse Ox 95 O2 Delivery Nasal Cannula O2 Flow Rate 3.00 Capillary Refill : Less Than 3 Seconds Height, Weight, BMI Height: 5'3.00" Weight: 278lbs. 0.0oz. [id number]; 44.3 BMI Method:Stated General Appearance: other (unresonsive) Ears, Nose, Throat: other (blood in the mouth) Neck: normal inspection Respiratory: lungs clear, other (snoring) Cardiovascular: normal peripheral pulses, regular rate, rhythm, no edema, no murmur Extremities: pedal edema Neurologic/Psychiatric: other (unresponsive. Pupils unresponsive) Skin: normal color, warm/dry Critical Care Note Critical Care Start Time: 23:06 Stop Time: 23:30 Total Time (minutes) 24 Progress Patient was unresponsive on my arrival. Nasal trumpet was inserted. Patient gradually began to wake and move independently, although not following instructions. VSS. CT head, CXR, EKG, and labs were ordered. Dr. Parada updated. Patient to be moved to ICU for post code care. Nasal trumpet was removed. Progress/Results/Core Measures Results/Orders Lab Results Laboratory Tests Test 01/27/18 11:15 01/28/18 05:00 01/28/18 23:10 Range/Units White Blood Count 8.4 7.9 4.3-11.0 10^3/uL Red Blood Count 4.23 L 4.23 L 4.35-5.85 10^6/uL Hemoglobin 12.7 12.4 11.5-16.0 G/DL Hematocrit 38 38 35-52 % Mean Corpuscular Volume 90 89 80-99 FL Mean Corpuscular Hemoglobin 30 29 25-34 PG Mean Corpuscular Hemoglobin Concent 34 33 32-36 G/DL Red Cell Distribution Width 13.8 13.5 10.0-14.5 % Platelet Count 175 170 130-400 10^3/uL Mean Platelet Volume 10.7 H 10.8 H 7.4-10.4 FL Neutrophils (%) (Auto) 89 H 42-75 % Lymphocytes (%) (Auto) 5 L 12-44 % Monocytes (%) (Auto) 5 0-12 % Eosinophils (%) (Auto) 0 0-10 % Basophils (%) (Auto) 0 0-10 % Neutrophils # (Auto) 7.5 1.8-7.8 X 10^3 Lymphocytes # (Auto) 0.5 L 1.0-4.0 X 10^3 Monocytes # (Auto) 0.5 0.0-1.0 X 10^3 Eosinophils # (Auto) 0.0 0.0-0.3 10^3/uL Basophils # (Auto) 0.0 0.0-0.1 10^3/uL Neutrophils % (Manual) 85 % Lymphocytes % (Manual) 9 % Monocytes % (Manual) 2 % Eosinophils % (Manual) 0 % Basophils % (Manual) 0 % Band Neutrophils 0 % Reactive Lymphocytes 4 % Toxic Granulation 1+ Clumped Platelets SLIGHT Poikilocytosis SLIGHT Elliptocytes SLIGHT Sodium Level 139 138 135-145 MMOL/L Potassium Level 3.6 3.8 3.6-5.0 MMOL/L Chloride Level 101 101 98-107 MMOL/L Carbon Dioxide Level 28 28 21-32 MMOL/L Anion Gap 10 9 5-14 MMOL/L Blood Urea Nitrogen 31 H 29 H 7-18 MG/DL Creatinine 0.92 0.86 0.60-1.30 MG/DL Estimat Glomerular Filtration Rate 60 > 60 BUN/Creatinine Ratio 34 34 Glucose Level 168 H 134 H 70-105 MG/DL Calcium Level 9.2 9.0 8.5-10.1 MG/DL Corrected Calcium 9.7 9.6 8.5-10.1 MG/DL Total Bilirubin 0.9 0.9 0.1-1.0 MG/DL Aspartate Amino Transf (AST/SGOT) 18 15 5-34 U/L Alanine Aminotransferase (ALT/SGPT) 17 17 0-55 U/L Alkaline Phosphatase 55 45 40-136 U/L Total Protein 5.8 L 5.3 L 6.4-8.2 GM/DL Albumin 3.4 3.2 3.2-4.5 GM/DL Glucometer 126 H 70-110 MG/DL My Orders Orders - JIMBO BUTLER MD Ct Head Wo-R/O Stroke (01/28/18 23:13) Cbc With Automated Diff (01/28/18 23:13) Comprehensive Metabolic Panel (01/28/18 23:13) Magnesium (01/28/18 23:13) Troponin I (01/28/18 23:13) Chest 1 View, Ap/Pa Only (01/28/18 23:13) Ekg Tracing (01/28/18 23:21) Vital Signs/I&O 01/25/18 01/25/18 01/25/18 01/25/18 11:15 15:17 18:00 19:32 Temp 97.9 Pulse 74 Resp 22 B/P (MAP) 197/81 (119) Pulse Ox 95 98 98 98 O2 Delivery Nasal Cannula Nasal Cannula Nasal Cannula Nasal Cannula O2 Flow Rate 3.00 3.00 3.00 3.00 01/25/18 01/25/18 01/26/18 01/26/18 19:36 21:00 05:41 06:39 Temp 98.5 Pulse 75 Resp 20 B/P (MAP) 180/80 (113) Pulse Ox 95 98 O2 Delivery Nasal Cannula Nasal Cannula Nasal Cannula Nasal Cannula O2 Flow Rate 3.00 3.00 3.00 3.00 01/26/18 01/26/18 01/26/18 01/26/18 08:17 08:47 10:47 15:35 Temp 96.7 Pulse 65 Resp 20 B/P (MAP) 166/70 (102) Pulse Ox 95 96 O2 Delivery Nasal Cannula Nasal Cannula Nasal Cannula Nasal Cannula O2 Flow Rate 3.00 3.00 3.00 3.00 01/26/18 01/26/18 01/26/18 01/26/18 18:00 19:04 19:09 21:00 Temp 97.5 Pulse 72 Resp 18 B/P (MAP) 179/79 (112) Pulse Ox 97 97 O2 Delivery Nasal Cannula Nasal Cannula Nasal Cannula Nasal Cannula O2 Flow Rate 3.00 3.00 3.00 3.00 01/27/18 01/27/18 01/27/18 01/27/18 06:08 08:43 09:00 11:14 Temp 97.0 96.6 Pulse 65 74 Resp 20 20 B/P (MAP) 172/72 (105) 179/82 (114) Pulse Ox 94 94 92 O2 Delivery Nasal Cannula Nasal Cannula Nasal Cannula Room Air O2 Flow Rate 3.00 3.00 3.00 01/27/18 01/27/18 01/27/18 01/27/18 15:20 18:00 20:00 20:09 Temp 96.6 97.0 Pulse 71 Resp 14 B/P (MAP) 148/94 (112) Pulse Ox 97 98 99 O2 Delivery Nasal Cannula Nasal Cannula Nasal Cannula O2 Flow Rate 3.00 2.00 2.00 01/27/18 01/28/18 01/28/18 01/28/18 21:00 05:12 07:12 08:00 Temp 97.8 97.8 Pulse 69 71 Resp 17 20 B/P (MAP) 154/46 (82) 177/83 (114) Pulse Ox 94 98 93 O2 Delivery Nasal Cannula Nasal Cannula Nasal Cannula Nasal Cannula O2 Flow Rate 3.00 3.00 2.00 3.00 01/28/18 01/28/18 01/28/18 01/28/18 09:10 10:17 18:00 20:14 Temp 97.6 Pulse 74 Resp 18 B/P (MAP) 140/86 (104) Pulse Ox 94 95 98 O2 Delivery Nasal Cannula Nasal Cannula Nasal Cannula Nasal Cannula O2 Flow Rate 3.00 2.00 3.00 2.00 01/28/18 21:00 O2 Delivery Nasal Cannula O2 Flow Rate 3.00 01/28/18 00:00 Intake Total 1200 ml Output Total 1756 ml Balance -556 ml Blood Pressure Mean: 104 Initial ECG Impression Date: Jan 28, 2018 Initial ECG Impression Time: 23:02 Initial ECG Rate: 90 Initial ECG Rhythm: Normal Sinus Comment Sinus rhythm with no ST elevation or depression. RBBB. LVH by auto read. Departure Impression Primary Impression: Cardiac arrest Additional Impressions: Seizure Altered mental status Qualified Codes: R41.82 - Altered mental status, unspecified Disposition: ADMITTED INPATIENT Condition: Stable JIMBO BUTLER MD Jan 28, 2018 23:28
[2018-01-28 23:32] LABS: BASOPHILS % (AUTO) 0 % (0-10); EOSINOPHILS % (AUTO) 0 % (0-10); HEMATOCRIT 42 % (35-52); HEMOGLOBIN 13.7 G/DL (11.5-16.0); LYMPHOCYTES # (AUTO) 0.7 X 10^3 (1.0-4.0); LYMPHOCYTES % (AUTO) 5 % (12-44); MEAN CORPUSCULAR HEMOGLOBIN 30 PG (25-34); MEAN CORPUSCULAR HGB CONC 33 G/DL (32-36); MEAN CORPUSCULAR VOLUME 90 FL (80-99); MEAN PLATELET VOLUME 10.6 FL (7.4-10.4); MONOCYTES # (AUTO) 0.9 X 10^3 (0.0-1.0); MONOCYTES % (AUTO) 7 % (0-12); NEUTROPHILS # (AUTO) 11.6 X 10^3 (1.8-7.8); NEUTROPHILS % (AUTO) 88 % (42-75); PLATELET COUNT 208 10^3/uL (130-400); RED BLOOD COUNT 4.63 10^6/uL (4.35-5.85); RED CELL DISTRIBUTION WIDTH 13.7 % (10.0-14.5); WHITE BLOOD COUNT 13.1 10^3/uL (4.3-11.0)
[2018-01-28 23:49] LABS: ALANINE AMINOTRANSFERASE 26 U/L (0-55); ALBUMIN 3.4 GM/DL (3.2-4.5); ALKALINE PHOSPHATASE 49 U/L (40-136); BILIRUBIN,TOTAL 1.2 MG/DL (0.1-1.0); BUN/CREATININE RATIO 32; CALCIUM 9.1 MG/DL (8.5-10.1); CARBON DIOXIDE 24 MMOL/L (21-32); CHLORIDE 100 MMOL/L (98-107); CREATININE SERUM 0.99 MG/DL (0.60-1.30); GFR ESTIMATED 55; GLUCOSE 129 MG/DL (70-105); MAGNESIUM 2.2 MG/DL (1.8-2.4); SODIUM 140 MMOL/L (135-145); TOTAL PROTEIN 5.8 GM/DL (6.4-8.2)
[2018-01-29 00:08] LABS: LYMPHOCYTES % (MANUAL) 5 %; MONOCYTES % (MANUAL) 6 %; NEUTROPHILS % (MANUAL) 89 %
[2018-01-29] MEDS ORDERED: LORazepam INJ 2 MG/ML (ATIVAN) VIAL IVP ONE ×2 (00:15)
--- NOTE | 2018-01-31 08:28 | Therapy Team Discharge Summary ---
Therapy Discharge Summary Discharge Recommendations Date of Discharge Jan 29, 2018 at 06:23 Therapy D/C Recommendations: Assisted Living, Scheduled Assistance Occupational Therapy Pt. has been being seen on swing bed to increase overall strength and independence. Pt. was doing well, but experienced new onset seizure activity and was transferred to ICU. Pt. will be evaluated at this level. Decreased Activ Tolerance, Decreased UE Strength, Impaired I ADL's, Impaired Self-Care Skills, Restricted Funct UE ROM PT Boat Puller Goals [facility] Goals PT Boat Puller Goals Time Frame: Feb 04, 2018 Transfers (B,C,W/C) (FIM): 6 Sit to Lying (QC): 6 Lying-Sitting on Side/Bed(QC): 6 Sit to Stand (QC): 6 Rollin Gait (FIM): 3 Gait distance (FIM): 3=150 ft Distance: 150' Walk 50ft with 2 Turns (QC): 6 Walk 150 ft (QC): 6 Gait Level of Assist: 6 Gait Assistive Device: FWW OT [facility] Goals [facility] Goals Time Frame: Feb 04, 2018 Eating (FIM): 7 (met) Eating (QC): 6 (met) Groomin (not met) Oral Hygiene (QC): 6 (not met) Bathing(FIM): 4 (not met) Upper Body Dressing(FIM): 5 (not met) Lower Body Dressing(FIM): 5 (not met) Toileting(FIM): 6 (met) Toileting Hygiene (QC): 6 (met) Toilet/Commode Transfer(FIM): 6 (met) Toilet/Commode Transfer (QC): 6 (met) Shower Transfer(FIM): 5 (met) Additional Goals: 1-Demonstrate ADL Tasks, 2-Verbalize Understanding, 3- ImproveStrength/Lakes[place]ia 1=Demonstrate adherence to instructed precautions during ADL tasks. 2=Patient will verbalize/demonstrate understanding of assistive devices/ modifications for ADL. 3=Patient will improve strength/tolerance for activity to enable patient to perform ADL's. SELMA MAURICIO OT Jan 31, 2018 08:28
--- NOTE | 2018-01-31 15:07 | Therapy Team Discharge Summary ---
Therapy Discharge Summary Discharge Recommendations Date of Discharge Jan 29, 2018 at 06:23 Therapy D/C Recommendations: Assisted Living, Scheduled Assistance Physical Therapy Patient dismissed from SWB status secondary to s/o code blue and transferred to ICU. Goals had been address. Occupational Therapy Decreased Activ Tolerance, Decreased UE Strength, Impaired I ADL's, Impaired Self-Care Skills, Restricted Funct UE ROM PT Custodial Goals Automobile Salesman Goals PT Automobile Salesman Goals Time Frame: Feb 04, 2018 Transfers (B,C,W/C) (FIM): 6 Sit to Lying (QC): 6 Lying-Sitting on Side/Bed(QC): 6 Sit to Stand (QC): 6 Rollin Gait (FIM): 3 Gait distance (FIM): 3=150 ft Distance: 150' Walk 50ft with 2 Turns (QC): 6 Walk 150 ft (QC): 6 Gait Level of Assist: 6 Gait Assistive Device: FWW OT Custodial Goals Automobile Salesman Goals Time Frame: Feb 04, 2018 Eating (FIM): 7 (met) Eating (QC): 6 (met) Groomin (not met) Oral Hygiene (QC): 6 (not met) Bathing(FIM): 4 (not met) Upper Body Dressing(FIM): 5 (not met) Lower Body Dressing(FIM): 5 (not met) Toileting(FIM): 6 (met) Toileting Hygiene (QC): 6 (met) Toilet/Commode Transfer(FIM): 6 (met) Toilet/Commode Transfer (QC): 6 (met) Shower Transfer(FIM): 5 (met) Additional Goals: 1-Demonstrate ADL Tasks, 2-Verbalize Understanding, 3- ImproveStrength/[place] 1=Demonstrate adherence to instructed precautions during ADL tasks. 2=Patient will verbalize/demonstrate understanding of assistive devices/ modifications for ADL. 3=Patient will improve strength/tolerance for activity to enable patient to perform ADL's. GARO NICK PT Jan 31, 2018 15:07
[2018-02-01] MEDS ORDERED: LEVE500T6 PO (08:36)
--- NOTE | 2018-02-01 20:32 | Discharge Summary-Hospitalist ---
Diagnosis/Chief Complaint Date of Admission Jan 25, 2018 at 10:12 Date of Discharge Jan 29, 2018 at 06:23 Discharge Diagnosis (1) New onset seizure Status: Acute (2) Altered mental status Status: Resolved (3) POST CODE Status: Acute (4) Wheezing Status: Acute (5) Obesity hypoventilation syndrome Status: Chronic (6) Renal insufficiency Status: Chronic (7) Essential (primary) hypertension Status: Chronic (8) VALDO on CPAP Status: Chronic (9) Lymphedema Status: Chronic (10) COPD exacerbation Status: Resolved (11) CHF (congestive heart failure) Status: Chronic Discharge Summary Discharge Physical Exam Allergies: Coded Allergies: NSAIDS (Non-Steroidal Anti-Inflamma (Unverified Allergy, Mild, 03/18/09) Penicillins (Verified Allergy, Unknown, 01/03/06) Sulfa (Sulfonamide Antibiotics) (Verified Allergy, Unknown, 01/03/06) aspirin (Verified Allergy, Unknown, 01/03/06) carbamazepine (Verified Allergy, Unknown, 09/20/06) cephalexin (Verified Allergy, Unknown, 01/03/06) iodine (Verified Allergy, Unknown, 01/03/06) latex (Unverified Allergy, Unknown, 06/21/13) Vitals & I&Os Vital Signs Date Time Temp Pulse Resp B/P (MAP) Pulse Ox O2 Delivery O2 Flow Rate FiO2 01/28/18 21:00 Nasal Cannula 3.00 01/28/18 20:14 98 01/28/18 18:00 97.6 74 18 140/86 (104) General Appearance: Other (code blue) Hospital Course Hospital course: patient had an uneventful swing bed hospital course before she coded and experienced a new onset seizure along with chest compressions for 2 minutes. Pt was transferred to the ICU. Labs (last 24 hrs) Patient resulted labs reviewed. Discussion & Recommendations Discharge Planning: <30 minutes discharge planning Discharge Home Medications: Active Scripts Active Levetiracetam 500 Mg Tablet 500 Mg PO BID Reported Ferrous Sulfate 325 Mg Tablet 325 Mg PO DAILY Ipratropium [place] 0.2 Mg/1 Ml Solution 0.2 Mg NEB TID PRN Guaifenesin AC Cough Syrup (Guaifenesin/Codeine Phosphate) 473 Ml Liquid 5 Ml PO Q6H PRN Oxycodone HCl 20 Mg Tablet 20 Mg PO 0000,0800,1400 Cranberry (Cranberry Fruit) 400 Mg Tablet 400 Mg PO BID Allopurinol 100 Mg Tablet 100 Mg PO DAILY Vitamin C (Ascorbate Calcium) 500 Mg Tablet 500 Mg PO DAILY Detrol LA (Tolterodine Tartrate) 4 Mg Cap 4 Mg PO DAILY Macrodantin (Nitrofurantoin Macrocrystal) 100 Mg Capsule 100 Mg PO 1700 Bumetanide 1 Mg Tablet 1 Mg PO DAILY Guaifenesin Dm Syrup (Guaifenesin/Dextromethorphan) 5 Ml Syrup 5 Ml PO Q6H PRN Calmoseptine Ointment (Menthol/Lanolin/Calamine/Znox) 71 Gm Oint TP UD PRN APPLY TO JARETT AREA Locoid (Hydrocortisone Butyrate) 15 Gm Cream..g. TP BID PRN Vitamin A & D Ointment (Vitamin A & D) 60 Gm Oint TP DAILY PRN APPLY TO BLE & FEET Oxycodone HCl 20 Mg Tablet 20 Mg PO Q6H PRN Simvastatin 20 Mg Tablet 20 Mg PO HS Plavix (Clopidogrel Bisulfate) 75 Mg Tablet 75 Mg PO DAILY Allergy Relief (Cetirizine HCl) 10 Mg Tablet 10 Mg PO DAILY Carvedilol 12.5 Mg Tablet 12.5 Mg PO BID Enalapril Maleate 5 Mg Tablet 2.5 Mg PO DAILY TAKES 1/2 (5MG) TABLET Duloxetine HCl 60 Mg Capsule.dr 60 Mg PO DAILY Hydroxychloroquine Sulfate 200 Mg Tablet 200 Mg PO 1200,1700 Gabapentin 300 Mg Capsule 300 Mg PO HS Nexium (Esomeprazole Magnesium) 40 Mg Cap 40 Mg PO HS Advair 250-50 Diskus (Fluticasone/Salmeterol) 1 Each Blst.w.dev 1 Puff IH BID Fluticasone Propionate 16 Gm [place].susp 1 [place] NS DAILY PRN Vitamin D-3 (Cholecalciferol (Vitamin D3)) 2,000 Unit Capsule 2,000 Unit PO HS Potassium Chloride 10 Meq Capsule.er 20 Meq PO 1200,1700 TAKES 2 (10MEQ) CAPSULES Instructions to patient/family Please see electronic discharge instructions given to patient. SIENNA MADERA DO Feb 01, 2018 20:32
== END 2018-01-29 06:23 | disposition short-term general hospital (02) | DRG 190 ==
LOC: 4TH 01-25 10:12 → ICU 01-29 00:23
PROVIDERS: ADMIT Internal Medicine; ATTEND Internal Medicine
DX: J44.1 Chronic obstructive pulmonary disease with (acute) exacerbation (principal); I46.9 Cardiac arrest, cause unspecified; I42.8 Other cardiomyopathies; Z68.42 Body mass index [BMI] 45.0-49.9, adult; I13.0 Hypertensive heart and chronic kidney disease with heart failure and stage 1 through stage 4 chronic kidney disease, or unspecified chronic kidney disease; N18.9 Chronic kidney disease, unspecified; E66.2 Morbid (severe) obesity with alveolar hypoventilation; I50.1 Left ventricular failure, unspecified; I50.30 Unspecified diastolic (congestive) heart failure; G40.909 Epilepsy, unspecified, not intractable, without status epilepticus; I25.10 Atherosclerotic heart disease of native coronary artery without angina pectoris; I73.9 Peripheral vascular disease, unspecified; I89.0 Lymphedema, not elsewhere classified; I65.23 Occlusion and stenosis of bilateral carotid arteries; M34.1 CR(E)ST syndrome; R41.82 Altered mental status, unspecified; Z16.12 Extended spectrum beta lactamase (ESBL) resistance; Z86.14 Personal history of Methicillin resistant Staphylococcus aureus infection
CPT/HCPCS: 36415; 80053; 82962; 83735; 84484; 85007; 85027; 93005; 94640; 94760

== ENCOUNTER 2018-01-29 00:38 | Inpatient (IN) | payer MEDICARE, OTHER ==
[~2018-01-29] VITALS: Ht 160 cm; Wt 121.1 kg
[2018-01-29] VITALS (24 sets, daily range): BP systolic 93–178; BP diastolic 55–88
[~2018-01-29 00:38] MED LIST changes: +CRAN400T3 PO; +IPRA0.2S51 NEB
[2018-01-29] MEDS ORDERED: LORazepam INJ 2 MG/ML (ATIVAN) VIAL IVP PRN (03:00)
[2018-01-29 04:07] LABS: BASOPHILS % (AUTO) 0 % (0-10); EOSINOPHILS % (AUTO) 0 % (0-10); HEMATOCRIT 40 % (35-52); HEMOGLOBIN 13.2 G/DL (11.5-16.0); LYMPHOCYTES # (AUTO) 0.5 X 10^3 (1.0-4.0); LYMPHOCYTES % (AUTO) 3 % (12-44); MEAN CORPUSCULAR HEMOGLOBIN 30 PG (25-34); MEAN CORPUSCULAR HGB CONC 33 G/DL (32-36); MEAN CORPUSCULAR VOLUME 89 FL (80-99); MEAN PLATELET VOLUME 10.7 FL (7.4-10.4); MONOCYTES # (AUTO) 1.3 X 10^3 (0.0-1.0); MONOCYTES % (AUTO) 8 % (0-12); NEUTROPHILS # (AUTO) 13.8 X 10^3 (1.8-7.8); NEUTROPHILS % (AUTO) 88 % (42-75); PLATELET COUNT 204 10^3/uL (130-400); RED BLOOD COUNT 4.47 10^6/uL (4.35-5.85); RED CELL DISTRIBUTION WIDTH 13.9 % (10.0-14.5); WHITE BLOOD COUNT 15.6 10^3/uL (4.3-11.0)
[2018-01-29 04:25] LABS: BUN/CREATININE RATIO 35; CARBON DIOXIDE 28 MMOL/L (21-32); CHLORIDE 101 MMOL/L (98-107); CREATININE SERUM 0.89 MG/DL (0.60-1.30); GFR ESTIMATED > 60; GLUCOSE 96 MG/DL (70-105); MAGNESIUM 2.3 MG/DL (1.8-2.4); PHOSPHORUS 3.7 MG/DL (2.3-4.7); POTASSIUM 3.8 MMOL/L (3.6-5.0); SODIUM 141 MMOL/L (135-145)
[2018-01-29] MEDS: MAGNESIUM 1 GM/100 ML IVPB 100 ML IV SCH (05:12)
[2018-01-29] MEDS: KCL 20 MEQ TAB (K-DUR) PO SCH (05:12)
[2018-01-29] MEDS: POTASSIUM CL 10MEQ/50ML IVPB 50 ML IV SCH (05:12)
[2018-01-29] MEDS ORDERED: methylPREDNISolone 40 MG/ML (Solu-MEDROL) VIAL ONE (05:23)
[2018-01-29] MEDS ORDERED: methylPREDNISolone 40 MG/ML (Solu-MEDROL) VIAL IV SCH ×2 (06:00→12:00)
--- NOTE | 2018-01-29 07:40 | Pulmonary Progress Note ---
Subjective Time Seen by a Provider: 06:03 Subjective/Events-last exam Pt had a seizure last night and was transferred to ICU. Sepsis Event Evaluation Height, Weight, BMI Height: 5'3.00" Weight: 266lbs. 1.0oz. 120.149973nk; 48.7 BMI Method:Stated Exam Exam Vital Signs Date Time Temp Pulse Resp B/P (MAP) Pulse Ox O2 Delivery O2 Flow Rate FiO2 01/29/18 06:00 66 14 152/77 (102) 100 Nasal Cannula 4.00 01/29/18 05:00 68 15 154/77 (102) 99 Nasal Cannula 4.00 01/29/18 04:00 97 Nasal Cannula 4.00 01/29/18 04:00 97.3 01/29/18 04:00 77 16 163/88 (113) 97 Nasal Cannula 4.00 01/29/18 03:00 71 17 170/79 (109) 97 Nasal Cannula 4.00 01/29/18 02:00 75 17 171/83 (112) 96 Nasal Cannula 4.00 01/29/18 01:00 73 20 155/81 (105) 97 Nasal Cannula 4.00 01/29/18 01:00 73 01/29/18 00:00 97.0 96 26 178/87 (117) 94 Nasal Cannula 4.00 01/28/18 23:54 93 I & O 01/29/18 07:00 Output Total 670 ml Balance -670 ml Height & Weight Height: 5'3.00" Weight: 266lbs. 1.0oz. 120.918186xz; 48.7 BMI Method:Stated General Appearance: Anxious, Mild Distress HEENT: PERRL/EOMI, Normal ENT Inspection, Pharynx Normal Neck: Full Range of Motion, Normal Inspection, Non Tender, Supple Respiratory: Chest Non Tender, Accessory Muscle Use, Decreased Breath Sounds Cardiovascular: Regular Rate, Rhythm, Tachycardia Capillary Refill: Less Than 3 Seconds Gastrointestinal: normal bowel sounds, non tender, soft Extremity: Normal Capillary Refill Neurologic/Psychiatric: Alert, Depressed Affect Skin: Normal Color, Warm/Dry Lymphatic: No Adenopathy Results Lab Laboratory Tests 01/29/18 03:55 Assessment/Plan Assessment/Plan COPDAE -- Doubt pneumonia -condition slowly improving -SVNS, advair -Solumedrol IV Q6 -Check CT of chest with head CT Anxiety/agitation -Add precedex and Morphine Seizure last night on 4th and pt transferred to ICU -ABG shows C02 52 -Check CT of head with and without contrast Nausea -Add Zofran Pulmonary edema -home bumex 1mg daily VALDO with OHS -Uses home CPAP- however has not been able to tolerate Chronic lymphadenopathy CKD HX of ESBL and MRSA I discussed with Dr. Parada and medical staff regarding pt's current condition and plan of care. 60min ICU time spent with patient. JORGE DORADO DO Jan 29, 2018 07:40
[2018-01-29] MEDS ORDERED: ONDANSETRON 4 MG/2 ML (SDV) Z0FRAN IVP PRN ×2 (07:45→10:00)
[2018-01-29] MEDS ORDERED: morphine INJ 4 MG/ML 1 ML (VIAL/SYRINGE) IVP PRN (07:45)
[2018-01-29] MEDS ORDERED: DEXMEDETOMIDINE INJECTION 200 MCG in NS (IVPB) 50 ML IV SCH (07:45)
[2018-01-29] MEDS ORDERED: LEVETIRACETAM INJECTION 1,000 MG in NS (IVPB) 100 ML IV SCH (09:00)
[2018-01-29] MEDS ORDERED: RT-ALBUTEROL/IPRATROPIUM 3 ML (DUONEB) VIAL INH PRN (09:15)
--- NOTE | 2018-01-29 09:53 | Diagnostic Imaging Report ---
EXAMINATION: Portable erect AP chest at 3:49 AM INDICATION: Respiratory failure This exam is less than optimal due to shallow inspiration. Even allowing for this technical factor, the appearance of the chest has worsened since the prior exam of 01/25/2018 as the left hemidiaphragm is now obscured by atelectasis/infiltrate and fluid. The left upper lung and right lung are relatively clear. The heart is enlarged but stable when compared to the prior study. The mediastinum is not widened. The osseous structures are intact. The central venous catheter on the right seen previously is unchanged in position. IMPRESSION: The appearance of the chest has worsened since the prior study as the left retrocardiac region is now opacified by atelectasis/infiltrate and fluid. A followup exam would be recommended for continued evaluation. Dictated by: Dictated on workstation # [id number]
--- NOTE | 2018-01-29 09:56 | History & Physical-Hospitalist ---
History of Present Illness HPI/Chief Complaint CC: AMS s/p code blue HPI: This is a 72yoWF clinic patient of mine who was transferred from 4th floor swing bed to ICU last night due to new onset seizure activity witnessed by RN. Pt became unresponsive and received 2 minutes of chest compressions and then became more alert and spontaneous movement restarted. Pt was at baseline yesterday and was held until Wednesday due to slight increase in wheezing where she was admitted last week for AECOPD. Pt had been up and walking with PT and had done very well last night until [id number] noted confusion on the phone last night at 2100. Pt was given her scheduled Oxycodone and then noted to have seizures. Pt has no h/o seizures. Pt was evaluated and transferred to ICU and closely monitored throughout the night and remained stable but having acute pain issues on chronic pain condition so I stopped Morphine and started Dilaudid with improved comfort. Son is at the bedside along with daughter-in- law. Dr Andrew and I evaluated the patient and have found no source of new onset seizure or AMS. CT scan was unable to be completed due to constant movement. Pt does know me when I asked her who I was. Source: patient, RN/MD Exam Limitations: clinical condition Date Seen 01/29/18 Time Seen by a Provider: 09:30 Attending Physician Clare Madera DO PCP Clare Madera DO Referring Physician Date of Admission Jan 29, 2018 at 00:38 Home Medications & Allergies Home Medications Reviewed patient Home Medication Reconciliation performed by pharmacy medication reconciliations instrument and electrical technician and/or nursing. Patients Allergies have been reviewed. Allergies Allergies Coded Allergies NSAIDS (Non-Steroidal Anti-Inflamma (Unverified Allergy, Mild, 03/18/09) Penicillins (Verified Allergy, Unknown, 01/03/06) Sulfa (Sulfonamide Antibiotics) (Verified Allergy, Unknown, 01/03/06) aspirin (Verified Allergy, Unknown, 01/03/06) carbamazepine (Verified Allergy, Unknown, 09/20/06) cephalexin (Verified Allergy, Unknown, 01/03/06) iodine (Verified Allergy, Unknown, 01/03/06) latex (Unverified Allergy, Unknown, 06/21/13) Past [id number] Hx Past Med/Social Hx: Reviewed Nursing Past Med/Soc Hx, Reviewed and Corrections made Patient Social History Marrital Status: Employed/Student: retired Alcohol Use: Denies Use Recreational Drug Use: No Smoking Status: Former Smoker Former Smoker, Quit: Mar 25, 1994 Type Used: Cigarettes 2nd Hand Smoke Exposure: No Physical Abuse Screen: No Sexual Abuse: No Recent Foreign Travel: No Contact w/other who traveled: No Recent Hopitalizations: No Recent Infectious Disease Expo: No Immunizations Up To Date Tetanus Booster (TDap): Unknown Pediatric: No Date of Pneumonia Vaccine: Feb 24, 2011 Seasonal Allergies Seasonal Allergies: No Past Medical History Surgeries: Adenoidectomy, Appendectomy, Hysterectomy, Lumpectomy, Orthopedic, Tonsillectomy, Tubal Ligation Respiratory: COPD, Pneumonia, Sleep Apnea Currently Using CPAP: Yes Cardiac: Chronic Edema/Swelling, High Cholesterol, Hypertension Neurological: Neuropathy Reproductive: No Sexually Transmitted Disease: No HIV/AIDS: No Female Reproductive Disorders: Denies Genitourinary: Renal Failure Gastrointestinal: Gastroesophageal Reflux, Gall Bladder Disease Musculoskeletal: Degenerate Disk Disease, Arthritis, Rheumatoid Arthritis, Chronic Back Pain Loss of Vision: Bilateral Hearing Impairment: Denies Cancer: Breast Did You Recieve Any Treatments: No What Type of Treatment Did You: Surgical Intervention Psychosocial: Anxiety, Depression History of Blood Disorders: Yes (IMMUNOGLOBULIN DEFICIENCY) Adverse Reaction to Blood Burrell: No Family History Cancer G8 SISTER Congestive heart failure 19 FATHER Family history: Cardiovascular disease 19 FATHER 19 MOTHER G8 BROTHER Family history: Coronary thrombosis 19 FATHER 19 MOTHER Family history: Hypertension 19 MOTHER Stroke 19 MOTHER G8 BROTHER No Pertinent Family Hx Review of Systems ROS-Unable to Obtain: incomplete due to AMS Constitutional: see HPI, malaise, other (pain) Psychiatric/Neurological: Seizure Physical Exam Physical Exam Vital Signs Vital Signs - First Documented 01/28/18 01/29/18 01/29/18 23:54 00:00 07:44 Temp 97.0 Pulse 93 Resp 26 B/P (MAP) 178/87 (117) Pulse Ox 94 O2 Delivery Nasal Cannula O2 Flow Rate 4.00 FiO2 36 Capillary Refill : Height, Weight, BMI Height: 5'3.00" Weight: 266lbs. 1.0oz. 120.316027oq; 48.7 BMI Method:Stated General Appearance: WD/WN, Chronically ill, Moderate Distress, Obese, Other ( in pain, constantly moving in bed) Eyes: Bilateral Eye Normal Inspection, Bilateral Eye PERRL HEENT: PERRL/EOMI, Normal ENT Inspection, Pharynx Normal Neck: Full Range of Motion, Normal Inspection, Non Tender, Supple, Carotid Bruit Respiratory: Chest Non Tender, Lungs Clear, Normal Breath Sounds, No Accessory Muscle Use, No Respiratory Distress Cardiovascular: Regular Rate, Rhythm, No Edema, No Gallop, No JVD, No Murmur, Normal Peripheral Pulses Gastrointestinal: Normal Bowel Sounds, No Organomegaly, No Pulsatile Mass, Non Tender, Soft Back: Normal Inspection, No CVA Tenderness, No Vertebral Tenderness Extremity: Normal Capillary Refill, Normal Inspection, Normal Range of Motion, Non Tender, No Calf Tenderness, No Pedal Edema Neurologic/Psychiatric: Alert, Oriented x3, No Motor/Sensory Deficits, Normal Mood/Affect Skin: Normal Color, Warm/Dry Lymphatic: No Adenopathy Results Results/Procedures Labs Laboratory Tests 01/29/18 03:55 Patient resulted labs reviewed. Assessment/Plan Admission Diagnosis Assessment: New onset seizure CT brain pending AMS unknown source but w/u pending and will stop steroids Severe acute on chronic pain AECOPD on steroids History of congestive heart failure History of acute kidney failure due to diuresis now normal creatinine today History of severe lymphedema dramatic improvement after seeing lymphedema specialist 3 times but hospital in [place] Severe obstructive sleep apnea may need BiPAP Obesity hypoventilation syndrome Hypertension ESBL UTI acute on chronic managed by Dr. Macias Plan: Lab w/u CT brain to r/o mass Keppra Stop steroids in case steroid myopathy Supportive care Catheter Admission Status: Inpatient Order (span 2 midnights) Reason for Inpatient Admission: AMS with s/p code blue and new onset seziure will require 3 days in-pt Diagnosis/Problems Diagnosis/Problems (1) New onset seizure Status: Acute (2) Altered mental status Status: Acute Qualifiers: Altered mental status type: unspecified Qualified Codes: R41.82 - Altered mental status, unspecified (3) Severe pain Status: Acute (4) POST CODE Status: Acute (5) Obesity hypoventilation syndrome Status: Chronic (6) COPD exacerbation Status: Acute (7) Essential (primary) hypertension Status: Chronic (8) Wheezing Status: Acute (9) Lymphedema Status: Chronic (10) CHF (congestive heart failure) Status: Acute Clinical Quality Measures DVT/VTE Risk/Contraindication: Risk Factor Score Per Nursin RFS Level Per Nursing on Admit: 4+=Very High CLARE MADERA DO Jan 29, 2018 09:56
[2018-01-29] MEDS ORDERED: MENTHOL/ZINC OXIDE (CALMOSEPTINE) 113 GM TUBE TP PRN (10:00)
[2018-01-29] MEDS ORDERED: DOCUSATE SODIUM 100 MG (COLACE) CAP PO PRN (10:00)
[2018-01-29] MEDS ORDERED: guaiFENesin/DM (ROBITUSSIN DM) 10 ML UDC PO PRN (10:00)
[2018-01-29] MEDS ORDERED: POLYETHYLENE GLYCOL 17 GM (MIRALAX) PACK PO PRN (10:00)
[2018-01-29] MEDS ORDERED: FLUTICASONE NASAL SPRAY (FLONASE) 16 GM BTL NS PRN (10:00)
--- NOTE | 2018-01-29 10:37 | Physical Therapy Evaluation ---
PT Evaluation-General Medical Diagnosis Admission Date Jan 29, 2018 at 00:38 Medical Diagnosis: pneumonia Onset Date: Jan 29, 2018 Therapy Diagnosis Therapy Diagnosis: weaknes Height/Weight Height (Feet): 5 Height (Inches): 3.00 Weight (Pounds): 266 Weight (Ounces): 1.0 Precautions Precautions/Isolations: Protective Isolation, Seizure, Fall Prevention Referral Physician: Clare Parada Reason for Referral: Evaluation/Treatment, Strengthening, Gait Medical History Pertinent Medical History: Arthritis, CAD, COPD, GERD, HTN, Neuropathy, Rheumatoid Arthritis Additional Medical History lumbar surgery Current History Pt was admitted 01/25/18 for pneumonia. She was receiving PT to address weakness and mobility. The evening of 01/28/18 she had a seizure and was transferred to ICU for cardiac monitoring. Social History Utilized w/c and walker at home for mobility at Modified (I) level. Intermittent assistance for ambulation, depending on the complexity of task. Prior/Core FIM Prior Level of Function Therapy Code Descriptions/Definitions Functional [place] Measure: 0=Not Assessed/NA 4=Minimal Assistance 1=Total Assistance 5=Supervision or Setup 2=Maximal Assistance 6=Modified [place] 3=Moderate Assistance 7=Complete [place] Therapy Quality Codes: 6 Independent with activity with or without an assistive device 5 Patient requires set up or clean up by helper. Patient completes activity by themselves 4 Supervision or touching assist (CGA). [place] provide cues , steadying assist 3 The helper provides less than half the effort to complete the activity 2 The helper provides more than half the effort to complete the activity 1 Dependent. The helper does all the effort to complete an activity 7 Patient refused to complete or attempt activity 9 The patient did not perform the activity before the current illness or injury 88 Not attempted due to Medical conditions or safety concerns Functional Abilities and Goals: Independent: Patient completed the activities by him/herself, with or without an assistive device, with no assistance from a helper. Needed Some Help: Patient needed partial assistance from another person to complete activities. Dependent: A helper completed the activities for the patient. Unknown: Not Applicable: Bed Mobility: 6 Transfers (B,C,W/C) (FIM): 6 Gait: 5 Wheelchair Mobility: 6 PT Evaluation-Current Subjective Pt up in bedside chair c/o unable to get comfortable with pain in the low back and the right leg. She says this is not new. She has restless leg syndrome and chronic pain in the back and leg. Pt is awaiting a trip to imaging for a CT scan. Nursing has administered pain meds and meds to calm her for the test. Pain Numeric Pain Scale: 8 Location: Right Location Body Site: Thigh Pain Description: Sharp Objective Patient Orientation: Person, Place, Situation Problem Solving: Fair Attachments: Oxygen, Barney Catheter, IV ROM/Strength Strength Lower Extremities left 4+/5 throughout, right 4/5 throughout Sensory Vision: Wears Glasses Hearing: Functional Transfers Therapy Code Descriptions/Definitions Functional [place] Measure: 0=Not Assessed/NA 4=Minimal Assistance 1=Total Assistance 5=Supervision or Setup 2=Maximal Assistance 6=Modified [place] 3=Moderate Assistance 7=Complete [place] Transfers (B, C, W/C) (FIM): 4 Rollin Supine to/from Sit: 4 Sit to/from Stand: 5 bed t/f WC(FIM only if WC use): 4 Gait Mode of Locomotion: Both Anticipated Mode of Locomotion: Both Distance (FIM): 1=up to 49 ft Distance: 5ft Gait Level of Assist: 4 Gait Persons Needed: 1 Gait Assistive Device: FWW Comments/Gait Description Patient limited in her ability to walk due to 8/10 right leg pain, hooked to multiple lines in ICU, and beginning to be sleepy from meds. uses FWW, Min A and leans on her elbows to reduce low back pain Balance Sitting Static: Good Sitting Dynamic: Good Standing Static: Fair Standing Dynamic: Fair Assessment/Needs Pt has limited mobility due to strength, balance, and endurance. She is currently unsafe for unsupervised standing due to right leg unstable from sharp pain. Pt will benefit from PT to address safety and and mobility. Rehab Potential: Fair Post Rehab Potential-Barriers: chronic condition PT Longterm Goals Longterm Goals PT Scrap Preparation Supervisor Goals Time Frame: Feb 04, 2018 Transfers (B,C,W/C) (FIM): 6 Gait (FIM): 3 Gait distance (FIM): 3=150 ft Distance: 250 Gait Level of Assist: 5 Gait Assistive Device: FWW PT Plan Problem List Problem List: Activity Tolerance, Functional Strength, Safety, Gait, Transfer Treatment/Plan Treatment Plan: Continue Plan of Care Treatment Plan: Bed Mobility, Functional Strength, Gait, Safety, Transfers Treatment Duration: Feb 04, 2018 Frequency: 11 times per week Estimated Hrs Per Day: .25 hour per day Patient and/or Family Agrees t: Yes Safety Risks/Education Patient Education: Gait Training Teaching Recipient: Patient Teaching Methods: Demonstration, Discussion Discharge Recommendations Barriers to Progress chronic medical conditions Time/GCodes Time In: 1015 Time Out: 1045 Total Billed Treatment Time: 30 Total Billed Treatment visit, evalmoderate complexity 30 minutes JEANINE BYRD PT Jan 29, 2018 10:37
--- NOTE | 2018-01-29 10:55 | Physical Therapy Progress Note ---
Therapy Progress Note Physical therapy assessment was performed this session. PT acknowledged OT order. Determined not to be an urgent need for OT based on the patient's current physical condition.This patient has previously been seen by OT and will plan to resume OT services on Wednesday. JEANINE BYRD PT Jan 29, 2018 10:55
[2018-01-29] MEDS ORDERED: RT-ALBUTEROL/IPRATROPIUM 3 ML (DUONEB) VIAL INH SCH (11:00)
[2018-01-29] MEDS: HYDROmorphone 2 MG/ML VIAL (DILAUDID) IV PRN (11:01)
[2018-01-29 11:22] LABS: BILIRUBIN,URINE NEGATIVE (NEGATIVE); CLARITY,URINE SLIGHTLY CLOUDY; COLOR,URINE YELLOW; GLUCOSE, URINE (UA) NEGATIVE (NEGATIVE); KETONES,URINE NEGATIVE (NEGATIVE); LEUKOCYTE ESTERASE ,URINE 3+ (NEGATIVE); NITRITE,URINE NEGATIVE (NEGATIVE); PH,URINE 6 (5-9); PROTEIN,URINE 2+ (NEGATIVE); UROBILINOGEN,URINE NORMAL (NORMAL)
[2018-01-29 11:28] LABS: BACTERIA,URINE TRACE /HPF; SQUAMOUS EPITHELIAL CELL,UR RARE /HPF
[2018-01-29] MEDS ORDERED: CATHETER FLUSH 10 ML SYR IV PRN (11:30)
[2018-01-29] MEDS ORDERED: RECEIVED CONTRAST (Hold Metformin) IV SCH (11:30)
[2018-01-29] MEDS ORDERED: IOHEXOL 350 MG/ML 150 ML (OMNIPAQUE 350) VIAL IV ONE (11:30)
[2018-01-29] MEDS ORDERED: NS 250 ML (IVPB) BAG IV ONE (11:30)
[2018-01-29 11:37] LABS: CREATINE KINASE 129 U/L (29-168)
[2018-01-29 11:42] LABS: ABG OXYGEN SATURATION 95 % (94-100); ABG PCO2 47 MMHG (35-45); ABG PH 7.45 (7.37-7.43); ABG PO2 66 MMHG (79-93)
[2018-01-29 11:43] LABS: ALLENS TEST YES-POS; INSPIRED O2 4L
[2018-01-29 11:44] LABS: PATIENT TEMP 96.6; VENTILATOR NO
[2018-01-29] MEDS: RT-ALBUTEROL/IPRATROPIUM 3 ML (DUONEB) VIAL INH SCH ×3 (11:51→20:26)
[2018-01-29] MEDS: RT-ADVAIR HFA 115/21 MCG PER PUFF IH SCH ×2 (11:51→20:32)
--- NOTE | 2018-01-29 12:19 | Diagnostic Imaging Report ---
PROCEDURE: CT head without contrast. TECHNIQUE: Multiple contiguous axial images were obtained through the brain without the use of intravenous contrast. INDICATION: Post code. COMPARISON: CT head without contrast 04/19/2017. FINDINGS: There are increasing low-attenuation changes in the posterior frontal lobes bilaterally, right greater than left. The tomlinson-white junction is preserved. No intracranial hemorrhage, mass effect, hydrocephalus, or extra-axial fluid collections. Osseous structures are intact. Probable mucus retention cyst in the left maxillary sinus. The mastoids are clear. IMPRESSION: 1. Interval progression of nonspecific low-attenuation changes in the white matter of the posterior frontal lobes, right greater than left. Although findings are nonspecific, these can be seen with posterior reversible encephalopathy syndrome. There is preservation of the tomlinson-white junction. This could be better evaluated with MRI. 2. No intracranial hemorrhage. Dictated by: Dictated on workstation # [id number]
--- NOTE | 2018-01-29 12:40 | Diagnostic Imaging Report ---
PROCEDURE: CT angiography of the chest with contrast. TECHNIQUE: Multiple contiguous axial images were obtained through the chest after uneventful bolus administration of intravenous contrast. 2D reconstructed CTA MIP acquisitions were also performed. INDICATION: Seizure, postcode, history of breast cancer, pneumonia Comparison: Chest x-ray from the same day Findings: Evaluation is suboptimal due to body habitus and motion artifact. Pulmonary arteries are diagnostic to the lobar level. No filling defect is seen. The heart is mildly large. There is no pericardial effusion. The main pulmonary artery is upper normal in size. There is aortic atherosclerosis. No mediastinal adenopathy is seen. There is no axillary adenopathy. There are dependent airspace opacities in the lungs bilaterally, particularly in the left lower lobe. No significant pleural effusion is seen. There is no pneumothorax. No central endobronchial lesions are seen. There are degenerative changes in the spine and thoracolumbar fusion hardware. Impression: 1. No pulmonary embolus seen, given technical factors described above. 2. Airspace opacity in the lung bases, particularly in the left lower lobe. This is likely due to atelectasis, with underlying infiltrate in the left lower lobe not excluded. Dictated by: Dictated on workstation # [id number]
--- NOTE | 2018-01-29 12:44 | Diagnostic Imaging Report ---
PROCEDURE: CT angiography of the head and CT angiography of the neck with and without contrast. TECHNIQUE: Contiguous non-contrast images were obtained from the skull base through the vertex. After intravenous contrast administration, helical CT angiography of the neck was performed. Source data was reformatted into multiple MIP projections. Delayed post-contrast acquisition was also obtained. INDICATION: Seizure. Post CODE last night. History of breast cancer. COMPARISON: CT head without contrast 01/29/2018. FINDINGS: Examination is only mildly limited due to necessary delay when performing a CTA chest at the same time. Again seen are low-attenuation changes in the white matter of the posterior frontal lobes, right greater than left. The tomlinson-white junction appears maintained with no evidence of a territorial infarction. There remains no evidence of intracranial hemorrhage on this contrast-enhanced exam. No abnormal intracranial enhancement. Probable mucus retention cyst in the left maxillary sinus. CTA demonstrates conventional aortic arch. Mild scattered atherosclerotic calcifications. There is no high-grade narrowing, aneurysm, or dissection involving the basilar, bilateral vertebral, carotid, anterior cerebral, middle cerebral, or posterior cerebral arteries. There is less than 50% narrowing of the proximal internal carotid arteries which are retropharyngeal. The dural venous sinuses are grossly patent. Moderate spondylotic changes in the cervical spine. Subcentimeter low-attenuation hypoenhancing nodules in the thyroid. The paravertebral soft tissues are otherwise unremarkable. IMPRESSION: 1. No high-grade arterial narrowing, aneurysm, or dissection involving the major arteries in the head and neck. 2. Stable low-attenuation changes in the white matter of the posterior frontal lobes, right greater than left. No abnormal intracranial enhancement. Dictated by: Dictated on workstation # [id number]
--- NOTE | 2018-01-29 13:09 | Consultation-Cardiology ---
HPI-Cardiology Cardiology Consultation: Date of Consultation 01/29/18 Time Seen by a Provider: 12:45 Date of Admission Attending Physician Clare Parada DO Admitting Physician Clare Parada DO Consulting Physician DAVID ANDRE MD, MA, FACP, FACC, [facility], CCDS Primary canvas cutter: Dr Carbajal Physician requesting consult: Dr Parada HPI: Chief Complaint: Reason for consultation: Cardiac comanagement after a reported episode of seizures last night 72 yo woman with multiple comorbidities, originally admitted to this hosp for AECOPD, who was on a swing bed on the Med Floor and had an episode of seizures shortly following admin of pain meds. Apparently, the seizure was witnessed by the nurse in attendance, but details are unavailable. It is not clear if chest compressions were done. The ER physician responded to the code and his note states that compressions were over by the time he came to the room, although the patient was still unresponsive. Airway management was performed. His note indicates presence sinus rhythm on ECG/cardiac cath technician. The patient woke up and was transferred to the ICU and has been hemodynamically stable. Is currently drowsy after she received Dilaudid for pain management and to allow performance of head imaging for eval of seizures. She does respond to questions. She denies cp. She reports gen body pain, chronic. She does not report shortness of breath. She denies palp. Has chronic bilat leg swelling. She does not recall the events of last night Review of Systems-Cardiology Review of Systems Constitutional: malaise, tiredness; No weight loss, No weight gain Eyes: No vision change Ears/Nose/Throat: No recent hearing loss Respiratory: As described under HPI Cardiovascular: As described under HPI Gastrointestinal: No diarrhea, No nausea Genitourinary: No dysuria; hematuria Musculoskeletal: other (chronic marked body pains) Skin: No rash, No ulcerations Psychiatric/Neurological: As described under HPI; No focal weakness Hematologic: No bleeding abnormalities [id number] H[facility] Patient Social History Marrital Status: Employed/Student: retired Alcohol Use: Denies Use Recreational Drug Use: No Smoking Status: Former Smoker Former smoker/When Quit: Feb 22, 1993 Type Used: Cigarettes 2nd Hand Smoke Exposure: No Recent Foreign Travel: No Recent Infectious Disease Expo: No Physical Abuse Screen: No Sexual Abuse: No Immunizations Up To Date Tetanus Booster (TDap): Unknown Date of Pneumonia Vaccine: Feb 24, 2011 Past Medical History PMH As described under Assessment. Family Medical History Family History: Cancer G8 SISTER Congestive heart failure 19 FATHER Family history: Cardiovascular disease 19 FATHER 19 MOTHER G8 BROTHER Family history: Coronary thrombosis 19 FATHER 19 MOTHER Family history: Hypertension 19 MOTHER Stroke 19 MOTHER G8 BROTHER Allergies and Home Medications Allergies Coded Allergies: NSAIDS (Non-Steroidal Anti-Inflamma (Unverified Allergy, Mild, 03/18/09) Penicillins (Verified Allergy, Unknown, 01/03/06) Sulfa (Sulfonamide Antibiotics) (Verified Allergy, Unknown, 01/03/06) aspirin (Verified Allergy, Unknown, 01/03/06) carbamazepine (Verified Allergy, Unknown, 09/20/06) cephalexin (Verified Allergy, Unknown, 01/03/06) iodine (Verified Allergy, Unknown, 01/03/06) latex (Unverified Allergy, Unknown, 06/21/13) Home Medications Allopurinol 100 Mg Tablet, 100 MG PO DAILY, (Reported) Ascorbate Calcium 500 Mg Tablet, 500 MG PO DAILY, (Reported) Bumetanide 1 Mg Tablet, 1 MG PO DAILY, (Reported) Carvedilol 12.5 Mg Tablet, 12.5 MG PO BID, (Reported) Cetirizine HCl 10 Mg Tablet, 10 MG PO DAILY, (Reported) Cholecalciferol (Vitamin D3) 2,000 Unit Capsule, 2,000 UNIT PO HS, (Reported) Clopidogrel Bisulfate 75 Mg Tablet, 75 MG PO DAILY, (Reported) Cranberry Fruit 400 Mg Tablet, 400 MG PO BID, (Reported) Duloxetine HCl 60 Mg Capsule.dr, 60 MG PO DAILY, (Reported) Enalapril Maleate 5 Mg Tablet, 2.5 MG PO DAILY, (Reported) TAKES 1/2 (5MG) TABLET Esomeprazole Magnesium 40 Mg Cap, 40 MG PO HS, (Reported) Fluticasone Propionate 16 Gm [place].susp, 1 SPRAY NS DAILY PRN for ALLERGIES, ( Reported) Fluticasone/Salmeterol 1 Each Blst.w.dev, 1 PUFF IH BID, (Reported) Gabapentin 300 Mg Capsule, 300 MG PO HS, (Reported) Guaifenesin/Codeine Phosphate 473 Ml Liquid, 5 ML PO Q6H PRN for COUGH, ( Reported) Guaifenesin/Dextromethorphan 5 Ml Syrup, 5 ML PO Q6H PRN for COUGH, (Reported) Hydrocortisone Butyrate 15 Gm Cream..g., TP BID PRN for INFLAMMATION, (Reported) Hydroxychloroquine Sulfate 200 Mg Tablet, 200 MG PO 1200,1700, (Reported) Ipratropium [place] 0.2 Mg/1 Ml Solution, 0.2 MG NEB TID PRN for SHORTNESS OF BREATH, (Reported) Menthol/Lanolin/Calamine/Znox 71 Gm Oint, TP UD PRN for IRRITATION, (Reported) APPLY TO [place]ARETT AREA Nitrofurantoin Macrocrystal 100 Mg Capsule, 100 MG PO 1700, (Reported) Oxycodone HCl 20 Mg Tablet, 20 MG PO Q6H PRN for PAIN-SEVERE, (Reported) Oxycodone HCl 20 Mg Tablet, 20 MG PO 10/06/23, (Reported) Potassium Chloride 10 Meq Capsule.er, 20 MEQ PO 1200,1700, (Reported) TAKES 2 (10MEQ) CAPSULES Simvastatin 20 Mg Tablet, 20 MG PO HS, (Reported) Tolterodine Tartrate 4 Mg Cap, 4 MG PO DAILY, (Reported) Vitamin A & D 60 Gm Oint, TP DAILY PRN, (Reported) APPLY TO BLE & FEET Patient Home Medication List Home Medication List Reviewed: Yes Physical Exam-Cardiology Physical Exam Vital Signs/I&O 01/29/18 01/29/18 01/29/18 01/29/18 02:00 03:00 04:00 04:00 Temp 97.3 Pulse 75 71 77 Resp 17 17 16 B/P (MAP) 171/83 (112) 170/79 (109) 163/88 (113) Pulse Ox 96 97 97 O2 Delivery Nasal Cannula Nasal Cannula Nasal Cannula O2 Flow Rate 4.00 4.00 4.00 01/29/18 01/29/18 01/29/18 01/29/18 04:00 05:00 06:00 07:00 Pulse 68 66 70 Resp 15 14 23 B/P (MAP) 154/77 (102) 152/77 (102) 154/82 (106) Pulse Ox 97 99 100 99 O2 Delivery Nasal Cannula Nasal Cannula Nasal Cannula Nasal Cannula O2 Flow Rate 4.00 4.00 4.00 4.00 01/29/18 01/29/18 01/29/18 01/29/18 07:00 07:44 07:44 08:00 Temp 97.3 Pulse 70 79 76 Resp 19 B/P (MAP) 120/71 (87) Pulse Ox 97 97 96 O2 Delivery Nasal Cannula Nasal Cannula O2 Flow Rate 4.00 4.00 FiO2 36 01/29/18 01/29/18 01/29/18 09:00 11:00 12:00 Temp 96.8 Pulse 81 59 61 Resp 22 19 17 B/P (MAP) 115/80 (92) 165/76 (105) 140/65 (90) Pulse Ox 100 91 94 O2 Delivery Nasal Cannula Nasal Cannula Nasal Cannula O2 Flow Rate 4.00 4.00 4.00 Capillary Refill : Constitutional: AAO x 3, well-developed, well-nourished, other (obese, drowsy but awakens) HEENT: EOMI, hearing is well preserved; No xanthelasmas are seen Neck: carotid pulses are 2 + bilaterally, with good upstrokes Respiratory: No accessory muscle use; other (fair to good bilat air entry; prolonged exp; some exp wheezes) Cardiovascular: regular rate-rhythm, S1 and S2, systolic murmur (soft AUREA at card base) Gastrointestinal: No tender; soft; No guarding, No rebound; audible bowel sounds Extremities: No clubbing, No cyanosis; significant edema (bilat, mod to marked , nonpitting edema of the legs) Neurologic/Psychiatric: other (awakens and responds to questions, but then drifts off and is not able to provide any detailed answers; seems to move all limbs equally) Skin: No rash on exposed areas, No ulcerations on exposed areas Data Review Labs Laboratory Tests 01/29/18 03:55: White Blood Count 15.6H, Red Blood Count 4.47, Hemoglobin 13.2, Hematocrit 40, Mean Corpuscular Volume 89, Mean Corpuscular Hemoglobin 30, Mean Corpuscular Hemoglobin Concent 33, Red Cell Distribution Width 13.9, Platelet Count 204, Mean Platelet Volume 10.7H, Neutrophils (%) (Auto) 88H, Lymphocytes (%) (Auto) 3L, Monocytes (%) (Auto) 8, Eosinophils (%) (Auto) 0, Basophils (%) (Auto) 0, Neutrophils # (Auto) 13.8H, Lymphocytes # (Auto) 0.5L, Monocytes # (Auto) 1.3H, Eosinophils # (Auto) 0.0, Basophils # (Auto) 0.0, Sodium Level 141, Potassium Level 3.8, Chloride Level 101, Carbon Dioxide Level 28, Anion Gap 12, Blood Urea Nitrogen 31H, Creatinine 0.89, Estimat Glomerular Filtration Rate > 60, BUN /Creatinine Ratio 35, Glucose Level 96, Calcium Level 9.0, Phosphorus Level 3.7 , Magnesium Level 2.3 01/29/18 11:15: Erythrocyte Sedimentation Rate 4, Urine Color YELLOW, Urine Clarity SLIGHTLY CLOUDY, Urine pH 6, Urine Specific [place] 1.020, Urine Protein 2+H, Urine Glucose (UA) NEGATIVE, Urine Ketones NEGATIVE, Urine Nitrite NEGATIVE, Urine Bilirubin NEGATIVE, Urine Urobilinogen NORMAL, Urine Leukocyte Esterase 3+H, Urine RBC (Auto) 4+H, Urine RBC 5-10H, Urine WBC 2-5, Urine Squamous Epithelial Cells RARE, Urine Crystals NONE, Urine Bacteria TRACE, Urine Casts NONE, Urine Mucus NEGATIVE, Urine Culture Indicated YES, Lactic Acid Level 1.14, Lactate Dehydrogenase 372H, Total Creatine Kinase 129, Troponin I < 0.30, C-Reactive Protein High Sensitivity 0.16 01/29/18 11:34: Blood Gas Puncture Site LT RAD, Blood Gas Patient Temperature 96.6, Arterial Blood pH 7.45H, Arterial Blood Partial Pressure CO2 47H, Arterial Blood Partial Pressure O2 66L, Arterial Blood HCO3 33H, Arterial Blood Total CO2 34.0H, Arterial Blood Oxygen Saturation 95, Arterial Blood Base Excess 8.0H, Izaiah Test YES-POS, Blood Gas Ventilator Setting NO, Blood Gas Inspired Oxygen 4L Laboratory Tests 01/29/18 03:55 A/P-Cardiology Assessment/Admission Diagnosis Seizures, possibly related to hypoxemia due to obesity-hypovent and narcotic analgesics for chronic pain Obesity with BMI approx 47 and obesity-hypoventilation syndrome Acute exacerbation of COPD Chronic joint and back and body pains H/o nonischemic cardiomyopathy, improved. MUGA of November 2015 showed LVEF 55%; last echo of 01/24/18: LVEF 50-55%, dilated left atrium, moderate MR, PA 30 mmHg Mild coronary artery disease nonobstructive disease by cardiac catheterization done in May 2014 Peripheral arterial disease. 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 History of elevated liver enzymes, followed by primary care physician Discussion and Recomendations * Complex management due to multiple comorbidities * I reviewed her hosp records in detail * Repeat ECG * Monitor labs * Monitor card rhythm (telemetry) * Consider tapering off narcotic analgesics (to be managed by the Med Svce) * Consider bariatric surgery because her obesity appears to be associated with significant morbidity * Further recs to be based on hosp course Clinical Quality Measures DVT/VTE Risk/Contraindication: Risk Factor Score Per Nursin RFS Level Per Nursing on Admit: 4+=Very High DAVID ANDRE MD FACP FAC CCDS Jan 29, 2018 13:09
[2018-01-29] MEDS: A & D OINT 60 GM TUBE TP SCH ×2 (15:45→21:31)
[2018-01-29] MEDS: HYDROXYCHLOROQUINE 200 MG (PLAQUENIL) TAB PO SCH ×2 (15:45→19:12)
[2018-01-29] MEDS: KCL 10 MEQ TAB (MICRO K) PO SCH (19:11)
[2018-01-29] MEDS ORDERED: ADVAIR HFA 115/21 MCG INHALER 8 GM IH SCH (20:00)
[2018-01-29] MEDS: LACTULOSE SYRUP 10GM/15ML (ENULOSE) 30ML UDC PO SCH (21:29)
[2018-01-29] MEDS: LEVETIRACETAM INJECTION 500 MG in NS (IVPB) 100 ML IV SCH (21:29)
[2018-01-29] MEDS: SIMvastatin 20 MG (ZOCOR) TAB PO SCH (21:30)
[2018-01-29] MEDS: CARVEDILOL 12.5 MG (COREG) TABLET PO SCH (21:30)
[2018-01-29] MEDS: GABAPENTIN 300 MG (NEURONTIN) CAP PO SCH (21:30)
[2018-01-29] MEDS: VITAMIN D3 1,000 UNITS (CHOLECALCIFEROL) TABLET PO SCH (21:30)
[2018-01-29] MEDS: PANTOPRAZOLE 40 MG (PROTONIX) TAB PO SCH (21:33)
[2018-01-30] VITALS (18 sets, daily range): BP systolic 100–152; BP diastolic 44–76
[2018-01-30 03:45] LABS: BASOPHILS % (AUTO) 0 % (0-10); EOSINOPHILS % (AUTO) 0 % (0-10); HEMATOCRIT 39 % (35-52); HEMOGLOBIN 12.8 G/DL (11.5-16.0); LYMPHOCYTES # (AUTO) 1.1 X 10^3 (1.0-4.0); LYMPHOCYTES % (AUTO) 9 % (12-44); MEAN CORPUSCULAR HEMOGLOBIN 30 PG (25-34); MEAN CORPUSCULAR HGB CONC 33 G/DL (32-36); MEAN CORPUSCULAR VOLUME 91 FL (80-99); MEAN PLATELET VOLUME 11.2 FL (7.4-10.4); MONOCYTES # (AUTO) 1.1 X 10^3 (0.0-1.0); MONOCYTES % (AUTO) 9 % (0-12); NEUTROPHILS # (AUTO) 10.7 X 10^3 (1.8-7.8); NEUTROPHILS % (AUTO) 83 % (42-75); PLATELET COUNT 144 10^3/uL (130-400); RED CELL DISTRIBUTION WIDTH 13.9 % (10.0-14.5); WHITE BLOOD COUNT 12.9 10^3/uL (4.3-11.0)
[2018-01-30 04:10] LABS: BUN/CREATININE RATIO 40; CALCIUM 8.8 MG/DL (8.5-10.1); CARBON DIOXIDE 27 MMOL/L (21-32); CHLORIDE 103 MMOL/L (98-107); CREATININE SERUM 0.82 MG/DL (0.60-1.30); GFR ESTIMATED > 60; GLUCOSE 72 MG/DL (70-105); MAGNESIUM 2.3 MG/DL (1.8-2.4); PHOSPHORUS 3.7 MG/DL (2.3-4.7); POTASSIUM 4.2 MMOL/L (3.6-5.0); SODIUM 140 MMOL/L (135-145)
[2018-01-30] MEDS: KCL 20 MEQ TAB (K-DUR) PO SCH (04:13)
[2018-01-30] MEDS: MAGNESIUM 1 GM/100 ML IVPB 100 ML IV SCH (04:13)
[2018-01-30] MEDS: POTASSIUM CL 10MEQ/50ML IVPB 50 ML IV SCH (04:13)
--- NOTE | 2018-01-30 06:03 | Pulmonary Progress Note ---
Subjective Time Seen by a Provider: 06:02 Sepsis Event Evaluation Height, Weight, BMI Height: 5'3.00" Weight: 266lbs. 1.0oz. 120.073202ph; 48.7 BMI Method:Stated Focused Exam Lactate Level 01/29/18 11:15: Lactic Acid Level 1.14 Exam Exam Vital Signs Date Time Temp Pulse Resp B/P (MAP) Pulse Ox O2 Delivery O2 Flow Rate FiO2 01/30/18 05:00 60 15 140/69 (92) 99 Nasal Cannula 4.00 01/30/18 05:00 98.4 01/30/18 04:00 62 17 119/51 (73) 92 Nasal Cannula 4.00 01/30/18 04:00 98.1 01/30/18 04:00 94 Nasal Cannula 4.00 01/30/18 03:00 64 20 119/44 (69) 93 Nasal Cannula 4.00 01/30/18 03:00 98.1 01/30/18 02:00 98.2 01/30/18 02:00 65 13 107/45 (65) 95 Nasal Cannula 4.00 01/30/18 01:00 61 15 126/51 (76) 95 Nasal Cannula 4.00 01/30/18 01:00 61 01/30/18 00:00 61 13 128/52 (77) 96 Nasal Cannula 4.00 01/30/18 00:00 93 Nasal Cannula 4.00 01/29/18 23:00 64 26 154/66 (95) 96 Nasal Cannula 4.00 01/29/18 22:00 98.3 01/29/18 22:00 63 14 159/73 (101) 98 Nasal Cannula 4.00 01/29/18 21:00 61 14 93/61 (72) 99 Nasal Cannula 4.00 01/29/18 20:26 94 Nasal Cannula 4.00 01/29/18 20:00 59 29 115/82 (93) 94 Nasal Cannula 4.00 01/29/18 20:00 93 Nasal Cannula 4.00 01/29/18 19:00 97.6 01/29/18 19:00 58 26 117/79 (92) 98 Nasal Cannula 4.00 01/29/18 19:00 58 01/29/18 18:00 54 16 130/80 (97) 99 Nasal Cannula 4.00 01/29/18 17:00 53 15 132/82 (99) 99 Nasal Cannula 4.00 01/29/18 16:00 58 22 109/58 (75) 99 Nasal Cannula 4.00 01/29/18 16:00 93 Nasal Cannula 4.00 01/29/18 15:55 95 Nasal Cannula 4.00 01/29/18 15:00 54 18 133/75 (94) 99 Nasal Cannula 4.00 01/29/18 14:00 56 17 116/88 (97) 99 Nasal Cannula 4.00 01/29/18 13:00 58 01/29/18 13:00 57 16 144/69 (94) 95 Nasal Cannula 4.00 01/29/18 12:00 96 Nasal Cannula 4.00 01/29/18 12:00 96.8 61 17 140/65 (90) 94 Nasal Cannula 4.00 01/29/18 11:00 59 19 165/76 (105) 91 Nasal Cannula 4.00 01/29/18 09:00 81 22 115/80 (92) 100 Nasal Cannula 4.00 01/29/18 08:00 92 Nasal Cannula 4.00 01/29/18 08:00 97.3 76 19 120/71 (87) 96 Nasal Cannula 4.00 01/29/18 07:44 97 Nasal Cannula 4.00 01/29/18 07:44 79 97 36 01/29/18 07:00 70 01/29/18 07:00 70 23 154/82 (106) 99 Nasal Cannula 4.00 I & O 01/30/18 07:00 Intake Total 275 ml Output Total 1425 ml Balance -1150 ml Height & Weight Height: 5'3.00" Weight: 266lbs. 1.0oz. 120.567974gg; 48.7 BMI Method:Stated General Appearance: WD/WN, Chronically ill, Moderate Distress, Obese, Other ( in pain, constantly moving in bed) HEENT: PERRL/EOMI, Normal ENT Inspection, Pharynx Normal Neck: Full Range of Motion, Normal Inspection, Non Tender, Supple, Carotid Bruit Respiratory: Chest Non Tender, Lungs Clear, Normal Breath Sounds, No Accessory Muscle Use, No Respiratory Distress Cardiovascular: Regular Rate, Rhythm, No Edema, No Gallop, No JVD, No Murmur, Normal Peripheral Pulses Extremity: Normal Capillary Refill, Normal Inspection, Normal Range of Motion, Non Tender, No Calf Tenderness, No Pedal Edema Neurologic/Psychiatric: Alert, Oriented x3, No Motor/Sensory Deficits, Normal Mood/Affect Skin: Normal Color, Warm/Dry Lymphatic: No Adenopathy Results Lab Laboratory Tests 01/29/18 03:55 01/30/18 03:15 Assessment/Plan Assessment/Plan COPDAE -- Doubt pneumonia -condition slowly improving -SVNS, advair -Solumedrol IV Q6 - CT of chest with head CT show no acute change Anxiety/agitation -D/C precedex -Continue PRN morphine Atelectasis -Increase activity -IS Seizure last night on 4th and pt transferred to ICU -ABG shows C02 52 -Check CT of head with and without contrast Nausea -Add Zofran Pulmonary edema -home bumex 1mg daily VALDO with OHS -Uses home CPAP- however has not been able to tolerate Chronic lymphadenopathy CKD HX of ESBL and MRSA JORGE DORADO DO Jan 30, 2018 06:03
[2018-01-30] MEDS: KCL 10 MEQ TAB (MICRO K) PO SCH ×2 (07:25→17:51)
[2018-01-30] MEDS: RT-ALBUTEROL/IPRATROPIUM 3 ML (DUONEB) VIAL INH SCH ×4 (07:34→19:41)
[2018-01-30] MEDS: RT-ADVAIR HFA 115/21 MCG PER PUFF IH SCH (07:35)
[2018-01-30] MEDS: LACTULOSE SYRUP 10GM/15ML (ENULOSE) 30ML UDC PO SCH ×2 (09:58→21:15)
[2018-01-30] MEDS: LEVETIRACETAM INJECTION 500 MG in NS (IVPB) 100 ML IV SCH ×2 (09:58→21:15)
[2018-01-30] MEDS: BUMETANIDE 1 MG (BUMEX) TAB PO SCH (09:59)
[2018-01-30] MEDS: CLOPIDOGREL 75 MG (PLAVIX) TABLET PO SCH (09:59)
[2018-01-30] MEDS: LORATADINE (CLARITIN) 10 MG TAB PO SCH (09:59)
[2018-01-30] MEDS: DULoxetine 30 MG (CYMBALTA) CAP PO SCH (09:59)
[2018-01-30] MEDS: A & D OINT 60 GM TUBE TP SCH ×2 (09:59→21:15)
[2018-01-30] MEDS: CARVEDILOL 12.5 MG (COREG) TABLET PO SCH ×2 (09:59→21:15)
[2018-01-30] MEDS: lisINopril 10 MG (PRINIVIL) TABLET PO SCH (09:59)
[2018-01-30] MEDS: ADVAIR HFA 115/21 MCG INHALER 8 GM IH SCH ×2 (11:13→19:41)
--- NOTE | 2018-01-30 11:26 | Diagnostic Imaging Report ---
INDICATION: Pneumonia and respiratory failure. Comparison made with prior examination 01/29/2018. FINDINGS: There is cardiomegaly. There is some venous congestion. There is left base infiltrate and left pleural effusion. There is no pneumothorax. Mediastinum is unremarkable. IMPRESSION: Left basilar infiltrate and left pleural effusion. Cardiomegaly and mild central pulmonary venous congestion. Dictated by: Dictated on workstation # [id number]
--- NOTE | 2018-01-30 11:29 | Progress Note-Cardiology ---
Cardiology SOAP Progress Note Subjective: No cp or palp or syncope or shortness of breath at rest since being admitted to ICU Objective: I&O/Vital Signs 01/30/18 01/30/18 01/30/18 01/30/18 00:00 00:00 01:00 01:00 Pulse 61 61 61 Resp 13 15 B/P (MAP) 128/52 (77) 126/51 (76) Pulse Ox 93 96 95 O2 Delivery Nasal Cannula Nasal Cannula Nasal Cannula O2 Flow Rate 4.00 4.00 4.00 01/30/18 01/30/18 01/30/18 01/30/18 02:00 02:00 03:00 03:00 Temp 98.2 98.1 Pulse 65 64 Resp 13 20 B/P (MAP) 107/45 (65) 119/44 (69) Pulse Ox 95 93 O2 Delivery Nasal Cannula Nasal Cannula O2 Flow Rate 4.00 4.00 01/30/18 01/30/18 01/30/18 01/30/18 04:00 04:00 04:00 05:00 Temp 98.1 98.4 Pulse 62 Resp 17 B/P (MAP) 119/51 (73) Pulse Ox 94 92 O2 Delivery Nasal Cannula Nasal Cannula O2 Flow Rate 4.00 4.00 01/30/18 01/30/18 01/30/18 01/30/18 05:00 06:00 06:00 07:00 Temp 98.1 Pulse 60 72 72 Resp 15 12 B/P (MAP) 140/69 (92) 110/60 (77) Pulse Ox 99 98 O2 Delivery Nasal Cannula Nasal Cannula O2 Flow Rate 4.00 4.00 01/30/18 01/30/18 01/30/18 01/30/18 07:00 07:34 08:00 08:00 Temp 96.2 Pulse 72 68 Resp 10 12 B/P (MAP) 143/64 (90) 141/72 (95) Pulse Ox 94 95 98 O2 Delivery Nasal Cannula Nasal Cannula Nasal Cannula O2 Flow Rate 4.00 4.00 4.00 01/30/18 01/30/18 01/30/18 01/30/18 08:00 09:00 10:00 11:16 Pulse 68 68 Resp 15 22 B/P (MAP) 109/76 (87) 100/70 (80) Pulse Ox 97 97 10 100 O2 Delivery Nasal Cannula Nasal Cannula Nasal Cannula Nasal Cannula O2 Flow Rate 4.00 4.00 4.00 4.00 01/30/18 00:00 Intake Total 105 ml Output Total 825 ml Balance -720 ml Weight (Pounds): 270 Weight (Ounces): 1.0 Weight (Calculated Kilograms): 122.814642 Constitutional: AAO x 3, well-developed, well-nourished, other (obese) Respiratory: No accessory muscle use; other (fair to good bilat air entry; prolonged exp; some exp wheezes) Cardiovascular: regular rate-rhythm, S1 and S2, systolic murmur (soft AUREA at card base) Gastrointestional: No tender; soft; No guarding, No rebound; audible bowel sounds Extremities: No clubbing, No cyanosis; significant edema (bilat, mod to marked , nonpitting edema of the legs) Neurologic/Psychiatric: oriented x 3, grossly intact, power is 5/5 both on sides Skin: No rash on exposed areas, No ulcerations on exposed areas; other ( bruising of the R side of the lower lip (bit lip during seizure)) Results/Procedures: Labs Laboratory Tests 01/29/18 11:34: Blood Gas Puncture Site LT RAD, Blood Gas Patient Temperature 96.6, Arterial Blood pH 7.45H, Arterial Blood Partial Pressure CO2 47H, Arterial Blood Partial Pressure O2 66L, Arterial Blood HCO3 33H, Arterial Blood Total CO2 34.0H, Arterial Blood Oxygen Saturation 95, Arterial Blood Base Excess 8.0H, Izaiah Test YES-POS, Blood Gas Ventilator Setting NO, Blood Gas Inspired Oxygen 4L 01/30/18 03:15: White Blood Count 12.9H, Red Blood Count 4.30L, Hemoglobin 12.8, Hematocrit 39, Mean Corpuscular Volume 91, Mean Corpuscular Hemoglobin 30, Mean Corpuscular Hemoglobin Concent 33, Red Cell Distribution Width 13.9, Platelet Count 144, Mean Platelet Volume 11.2H, Neutrophils (%) (Auto) 83H, Lymphocytes (%) (Auto) 9L, Monocytes (%) (Auto) 9, Eosinophils (%) (Auto) 0, Basophils (%) (Auto) 0, Neutrophils # (Auto) 10.7H, Lymphocytes # (Auto) 1.1, Monocytes # (Auto) 1.1H, Eosinophils # (Auto) 0.0, Basophils # (Auto) 0.0, Sodium Level 140, Potassium Level 4.2, Chloride Level 103, Carbon Dioxide Level 27, Anion Gap 10, Blood Urea Nitrogen 33H, Creatinine 0.82, Estimat Glomerular Filtration Rate > 60, BUN /Creatinine Ratio 40, Glucose Level 72, Calcium Level 8.8, Phosphorus Level 3.7 , Magnesium Level 2.3 A/P: Assessment: Seizure, possibly related to hypoxemia due to obesity-hypovent and meds for treatment of pain Obesity with BMI approx 48 and obesity-hypoventilation syndrome Acute exacerbation of COPD Chronic joint and back and body pains H/o nonischemic cardiomyopathy, improved. MUGA of November 2015 showed LVEF 55%; last echo of 01/24/18: LVEF 50-55%, dilated left atrium, moderate MR, PA 30 mmHg Mild coronary artery disease nonobstructive disease by cardiac catheterization done in May 2014 Peripheral arterial disease. H/o Promus 2.5x24 to R ant tibial by Dr De Leon at [facility] in Mar 2016 Peripheral edema, chronic, lymphedema Hypertension Moderate bilateral carotid stenosis, per ultrasound of October 2016 CREST syndrome, managed by her clerk entry level. History of elevated liver enzymes, followed by primary care physician Plan: * Complex management due to multiple comorbidities * Monitor labs * Monitor card rhythm (telemetry). No evidence of cardiac arrhythmia so far * Consider tapering off narcotic analgesics (to be managed by the Med Svce) * Consider bariatric surgery because her obesity appears to be associated with significant morbidity * I discussed her case with DAVID Sheets [facility] Jan 30, 2018 11:29
--- NOTE | 2018-01-30 11:45 | Progress Note-Hospitalist ---
Subjective HPI/CC On Admission Date Seen by Provider: Jan 30, 2018 Time Seen by Provider: 10:45 CC: AMS s/p code blue HPI: This is a 72yoWF clinic patient of mine who was transferred from 4th floor swing bed to ICU last night due to new onset seizure activity witnessed by RN. Pt became unresponsive and received 2 minutes of chest compressions and then became more alert and spontaneous movement restarted. Pt was at baseline yesterday and was held until Wednesday due to slight increase in wheezing where she was admitted last week for AECOPD. Pt had been up and walking with PT and had done very well last night until [id number] noted confusion on the phone last night at 2100. Pt was given her scheduled Oxycodone and then noted to have seizures. Pt has no h/o seizures. Pt was evaluated and transferred to ICU and closely monitored throughout the night and remained stable but having acute pain issues on chronic pain condition so I stopped Morphine and started Dilaudid with improved comfort. Son is at the bedside along with daughter-in- law. Dr Andrew and I evaluated the patient and have found no source of new onset seizure or AMS. CT scan was unable to be completed due to constant movement. Pt does know me when I asked her who I was. Subjective/Events-last exam Patient dramatically improved Encephalopathy is clearing No seizures reported Keppra given IV Overall extremely improved and cough is productive and she is able to cough and expel the phlegm Dilaudid 1 dose yesterday gave her enough pain control to be able to sleep the entire day and most of last night No pain is reported currently Conferred with cardiology CT scan showed possible posterior reversible encephalopathy syndrome but patient appears to be clearing rapidly and still could be a component of that but I did discontinue the steroids that could possibly have been a factor Review of Systems General: Fatigue Pulmonary: Cough Focused Exam Lactate Level 01/29/18 11:15: Lactic Acid Level 1.14 Objective Exam Vital Signs Vital Signs Date Time Temp Pulse Resp B/P (MAP) Pulse Ox O2 Delivery O2 Flow Rate FiO2 01/30/18 11:16 100 Nasal Cannula 4.00 01/30/18 11:00 66 13 137/72 (93) 01/30/18 08:00 96.2 01/29/18 07:44 36 Capillary Refill : Less Than 3 SecondsLess Than 3 Seconds General Appearance: No Apparent Distress, WD/WN, Chronically ill, Other ( Dramatically improved, oriented 3, sitting in chair) Respiratory: Chest Non Tender, Lungs Clear, Normal Breath Sounds, No Accessory Muscle Use, No Respiratory Distress Cardiovascular: Regular Rate, Rhythm, No Edema, No Gallop, No JVD, No Murmur, Normal Peripheral Pulses Neurologic/Psychiatric: Alert, Oriented x3, No Motor/Sensory Deficits, Normal Mood/Affect Skin: Normal Color, Warm/Dry Results/Procedures Lab Laboratory Tests 01/30/18 03:15 Patient resulted labs reviewed. Assessment/Plan Assessment and Plan Assess & Plan/Chief Complaint Assessment: New onset seizure with AMS CT brain revealing evidence of possible posterior reversible encephalopathy syndrome but clearance has been rapid Severe acute on chronic pain AECOPD s/p steroids History of congestive heart failure History of acute kidney failure due to diuresis now normal creatinine today History of severe lymphedema dramatic improvement after seeing lymphedema specialist 3 times but hospital in [place] Severe obstructive sleep apnea may need BiPAP Obesity hypoventilation syndrome Hypertension ESBL UTI acute on chronic managed by Dr. Macias Plan: Continue treatment plan Monitor closely Diagnosis/Problems Diagnosis/Problems (1) New onset seizure Status: Acute (2) Altered mental status Status: Resolved Qualifiers: Altered mental status type: unspecified Qualified Codes: R41.82 - Altered mental status, unspecified Resolution Date/Time: 01/30/18 @ 11:44 (3) Severe pain Status: Acute (4) POST CODE Status: Acute (5) Obesity hypoventilation syndrome Status: Chronic (6) COPD exacerbation Status: Acute (7) Essential (primary) hypertension Status: Chronic (8) Wheezing Status: Acute (9) Lymphedema Status: Chronic (10) CHF (congestive heart failure) Status: Acute (11) Posterior reversible encephalopathy syndrome (PRES) Status: Acute Clinical Quality Measures DVT/VTE Risk/Contraindication: Risk Factor Score Per Nursin RFS Level Per Nursing on Admit: 4+=Very High SIENNA MADERA DO Jan 30, 2018 11:45
[2018-01-30] MEDS: HYDROXYCHLOROQUINE 200 MG (PLAQUENIL) TAB PO SCH ×2 (12:44→17:51)
[2018-01-30] MEDS: HYDROmorphone 2 MG/ML VIAL (DILAUDID) IV PRN (21:15)
[2018-01-30] MEDS: SIMvastatin 20 MG (ZOCOR) TAB PO SCH (21:15)
[2018-01-30] MEDS: GABAPENTIN 300 MG (NEURONTIN) CAP PO SCH (21:15)
[2018-01-30] MEDS: PANTOPRAZOLE 40 MG (PROTONIX) TAB PO SCH (21:15)
[2018-01-30] MEDS: VITAMIN D3 1,000 UNITS (CHOLECALCIFEROL) TABLET PO SCH (21:15)
[2018-01-31 00:10] VITALS: BP 125/66
[2018-01-31 03:45] LABS: BASOPHILS % (AUTO) 0 % (0-10); EOSINOPHILS # (AUTO) 0.1 10^3/uL (0.0-0.3); EOSINOPHILS % (AUTO) 1 % (0-10); HEMATOCRIT 40 % (35-52); HEMOGLOBIN 12.9 G/DL (11.5-16.0); LYMPHOCYTES # (AUTO) 1.2 X 10^3 (1.0-4.0); LYMPHOCYTES % (AUTO) 11 % (12-44); MEAN CORPUSCULAR HEMOGLOBIN 30 PG (25-34); MEAN CORPUSCULAR HGB CONC 33 G/DL (32-36); MEAN CORPUSCULAR VOLUME 91 FL (80-99); MEAN PLATELET VOLUME 10.2 FL (7.4-10.4); MONOCYTES # (AUTO) 0.9 X 10^3 (0.0-1.0); MONOCYTES % (AUTO) 8 % (0-12); NEUTROPHILS % (AUTO) 80 % (42-75); PLATELET COUNT 189 10^3/uL (130-400); RED BLOOD COUNT 4.32 10^6/uL (4.35-5.85); RED CELL DISTRIBUTION WIDTH 14.4 % (10.0-14.5); WHITE BLOOD COUNT 11.2 10^3/uL (4.3-11.0)
[2018-01-31 04:00] VITALS: BP 141/83
[2018-01-31 04:03] LABS: BUN/CREATININE RATIO 31; CALCIUM 8.7 MG/DL (8.5-10.1); CARBON DIOXIDE 31 MMOL/L (21-32); CHLORIDE 102 MMOL/L (98-107); CREATININE SERUM 0.85 MG/DL (0.60-1.30); GFR ESTIMATED > 60; GLUCOSE 90 MG/DL (70-105); PHOSPHORUS 2.8 MG/DL (2.3-4.7); POTASSIUM 3.9 MMOL/L (3.6-5.0); SODIUM 142 MMOL/L (135-145)
--- NOTE | 2018-01-31 05:48 | Pulmonary Progress Note ---
Subjective Time Seen by a Provider: 05:48 Subjective/Events-last exam Pt appears to be doing better. Sepsis Event Evaluation Height, Weight, BMI Height: 5'3.00" Weight: 270lbs. 1.0oz. 122.880555ek; 48.7 BMI Method:Stated Focused Exam Lactate Level 01/29/18 11:15: Lactic Acid Level 1.14 Exam Exam Vital Signs Date Time Temp Pulse Resp B/P (MAP) Pulse Ox O2 Delivery O2 Flow Rate FiO2 01/31/18 04:00 99.6 77 18 141/83 (102) 96 Nasal Cannula 2.00 01/31/18 01:00 72 01/31/18 00:10 98.4 74 20 125/66 (85) 96 Nasal Cannula 2.00 01/30/18 20:00 98.7 76 16 147/68 (94) 96 Nasal Cannula 2.00 01/30/18 20:00 Nasal Cannula 2.00 01/30/18 19:42 98 Nasal Cannula 4.00 01/30/18 19:00 70 01/30/18 16:00 65 24 137/68 (91) 97 Nasal Cannula 4.00 01/30/18 16:00 97 Nasal Cannula 4.00 01/30/18 16:00 98.4 01/30/18 15:00 65 14 137/66 (89) 97 Nasal Cannula 4.00 01/30/18 14:34 96 Nasal Cannula 4.00 01/30/18 14:00 64 20 137/64 (88) 96 Nasal Cannula 4.00 01/30/18 13:00 61 20 152/64 (93) 100 Nasal Cannula 4.00 01/30/18 13:00 62 01/30/18 12:00 97.1 01/30/18 12:00 97 Nasal Cannula 4.00 01/30/18 12:00 64 17 135/70 (91) 94 Nasal Cannula 4.00 01/30/18 11:16 100 Nasal Cannula 4.00 01/30/18 11:00 66 13 137/72 (93) 100 Nasal Cannula 4.00 01/30/18 10:00 68 22 100/70 (80) 10 Nasal Cannula 4.00 01/30/18 09:00 68 15 109/76 (87) 97 Nasal Cannula 4.00 01/30/18 08:00 97 Nasal Cannula 4.00 01/30/18 08:00 96.2 01/30/18 08:00 68 12 141/72 (95) 98 Nasal Cannula 4.00 01/30/18 07:34 95 Nasal Cannula 4.00 01/30/18 07:00 72 10 143/64 (90) 94 Nasal Cannula 4.00 01/30/18 07:00 72 01/30/18 06:00 98.1 01/30/18 06:00 72 12 110/60 (77) 98 Nasal Cannula 4.00 I & O 01/31/18 07:00 Intake Total 1040 ml Output Total 2375 ml Balance -1335 ml Height & Weight Height: 5'3.00" Weight: 270lbs. 1.0oz. 122.652436bo; 48.7 BMI Method:Stated General Appearance: No Apparent Distress, WD/WN, Chronically ill, Other ( Dramatically improved, oriented 3, sitting in chair) HEENT: PERRL/EOMI, Normal ENT Inspection, Pharynx Normal Neck: Full Range of Motion, Normal Inspection, Non Tender, Supple Respiratory: Chest Non Tender, Lungs Clear, Normal Breath Sounds, No Accessory Muscle Use, No Respiratory Distress Cardiovascular: Regular Rate, Rhythm, No Edema, No Gallop, No JVD, No Murmur, Normal Peripheral Pulses Capillary Refill: Less Than 3 Seconds Gastrointestinal: normal bowel sounds, non tender, soft Extremity: Normal Capillary Refill Neurologic/Psychiatric: Alert, Oriented x3, No Motor/Sensory Deficits, Normal Mood/Affect Skin: Normal Color, Warm/Dry Lymphatic: No Adenopathy Results Lab Laboratory Tests 01/30/18 03:15 01/31/18 03:35 Assessment/Plan Assessment/Plan COPDAE -- Doubt pneumonia -condition slowly improving -SVNS, advair - CT of chest with head CT show no acute change Anxiety/agitation -D/C precedex -Continue PRN morphine UTI -Start Vanco Atelectasis -Increase activity -IS Seizure last night on 4th and pt transferred to ICU -ABG shows C02 52 -Check CT of head with and without contrast Nausea -Add Zofran Pulmonary edema -home bumex 1mg daily VALDO with OHS -Uses home CPAP- however has not been able to tolerate Chronic lymphadenopathy CKD HX of ESBL and MRSA JORGE DORADO DO Jan 31, 2018 05:48
[2018-01-31] MEDS: POTASSIUM CL 10MEQ/50ML IVPB 50 ML IV SCH (06:12)
[2018-01-31] MEDS: KCL 20 MEQ TAB (K-DUR) PO SCH (06:13)
[2018-01-31] MEDS: MAGNESIUM 1 GM/100 ML IVPB 100 ML IV SCH (06:13)
[2018-01-31] MEDS ORDERED: RT-BUDESONIDE NEBS 0.5 MG/2ML (PULMICORT) AMP ONE (06:35)
[2018-01-31] MEDS: KCL 10 MEQ TAB (MICRO K) PO SCH ×2 (06:51→17:12)
[2018-01-31] MEDS: RT-ALBUTEROL/IPRATROPIUM 3 ML (DUONEB) VIAL INH SCH ×4 (07:13→19:17)
[2018-01-31] MEDS: CARVEDILOL 12.5 MG (COREG) TABLET PO SCH ×2 (08:00→20:14)
[2018-01-31] MEDS: DULoxetine 30 MG (CYMBALTA) CAP PO SCH (08:00)
[2018-01-31] MEDS: LORATADINE (CLARITIN) 10 MG TAB PO SCH (08:00)
[2018-01-31] MEDS: BUMETANIDE 1 MG (BUMEX) TAB PO SCH (08:00)
[2018-01-31] MEDS: CLOPIDOGREL 75 MG (PLAVIX) TABLET PO SCH (08:00)
[2018-01-31] MEDS: lisINopril 10 MG (PRINIVIL) TABLET PO SCH (08:00)
[2018-01-31] MEDS: A & D OINT 60 GM TUBE TP SCH ×2 (08:01→20:56)
[2018-01-31] MEDS: LACTULOSE SYRUP 10GM/15ML (ENULOSE) 30ML UDC PO SCH ×2 (08:01→20:18)
[2018-01-31] MEDS: LEVETIRACETAM INJECTION 500 MG in NS (IVPB) 100 ML IV SCH (08:01)
[2018-01-31 08:07] VITALS: BP 122/61
--- NOTE | 2018-01-31 09:05 | Cardiology Progress Note ---
Subjective Date Seen by Provider: Jan 31, 2018 Time Seen by Provider: 09:00 Subjective/Events-last exam patient was seen at bedside, she was sitting in a chair, complaining of generalized fatigue and loss of energy. Having bruises on her lip and chest. Events over the weekend were reviewed. She was laying down in bed, does not recall the event, it was reported that she had a seizure activity and became unresponsive, the code was called. Received chest compression. Review of Systems General: No Chills, No Night Sweats; Fatigue; No Malaise, No Appetite, No Other HEENT: No Head Aches, No Visual Changes, No Eye Pain, No Ear Pain, No Dysphasia , No Sinus Congestion, No Post Nasal Drip, No Sore Throat, No Other Pulmonary: Dyspnea; No Cough, No Pleuritic Chest Pain, No Other Cardiovascular: Chest Pain; No: Palpitations, Orthopnea, Paroxysmal Noc. Dyspnea, Edema, Lt Headedness, Other Focused Exam Lactate Level 01/29/18 11:15: Lactic Acid Level 1.14 Objective-Cardiology Exam Last Set of Vital Signs Vital Signs 01/29/18 01/31/18 07:44 08:07 Temp 98.2 Pulse 92 Resp 26 B/P (MAP) 122/61 (81) Pulse Ox 96 O2 Delivery Nasal Cannula O2 Flow Rate 4.00 FiO2 36 Capillary Refill : Less Than 3 SecondsLess Than 3 Seconds I&O Intake and Output 01/31/18 00:00 Intake Total 1090 ml Output Total 2975 ml Balance -1885 ml Intake Oral 1090 ml Output Urine Total 2975 ml General: Alert, Oriented X3, Cooperative HEENT: Atraumatic, PERRLA Neck: Supple, No JVD, No Thyromegaly Lungs: Normal Air Movement, Other (bilateral rhonchi) Heart: Regular Rate, Normal S1, Normal S2, No Murmurs Abdomen: Normal Bowel Sounds, Soft, No Tenderness, No Hepatosplenomegaly, No Masses Extremities: No Clubbing, No Cyanosis, Normal Pulses, No Tenderness/Swelling, Other (peripheral edema) Skin: No Rashes, No Breakdown, No Significant Lesion Neuro: Normal Speech, Strength at 5/5 X4 Ext, Normal Tone, Sensation Intact Psych/Mental Status: Mental Status NL, Mood NL Results Lab Laboratory Tests 01/31/18 03:35 A/P-Cardiology Admission Diagnosis Seizure Syncope Hypertension COPD Assessment/Plan Status post seizure, transferred to the intensive care unit, workup has been negative except for hypoxemia, feeling better at this time. COPD, status post acute exacerbation. Feeling better at this time, still having some wheezing and shortness of breath. Managed by Dr. Andrew History of Nonischemic cardiomyopathy, MUGA scan was done in November 2015 showing ejection fraction 55 percent, last echocardiogram in January 24, 2018 showed ejection fraction 50-55 percent, dilated left atrium, moderate MR, PA 30 mmHg. Significant improvement, no signs of heart failure. Continue to monitor Mild coronary artery disease nonobstructive disease by cardiac catheterization done in May 2014. Continue to monitor at this time. Peripheral arterial disease, history of abdominal aortogram with angiogram to the lower extremities done by Dr. Cosme, reported to good vessel runoff to the lower extremities, medical therapy was recommended, repeat Peripheral runoff showed total occlusion of the anterior tibial artery and both lower extremities with brisk flow. It was done in March 2016, patient was referred by Dr. De Leon to [facility] and had angioplasty and stent done using drug-eluting stent Promus 3.524 mm to the anterior tibial artery on the right side with good results. ulcer has healed well, received treatment for lymphedema and improved. Peripheral edema, chronic, lymphedema. Better at this time. Receiving therapy in [place], continue to monitor Hypertension, continue to monitor blood pressure Moderate bilateral carotid stenosis, ultrasound was done in October 2016. 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 History of multiple back and knee surgeries, continue to monitor Chronic renal insufficiency, seen and established with Dr. Saundra Craig History of elevated liver enzymes, followed by primary care physician Obesity, BMI is 46, patient was educated on weight loss Clinical Quality Measures DVT/VTE Risk/Contraindication: Risk Factor Score Per Nursin RFS Level Per Nursing on Admit: 4+=Very High DEVI LONDON MD Jan 31, 2018 09:05
--- NOTE | 2018-01-31 09:19 | Progress Note-Hospitalist ---
SIENNA MADERA DO 01/31/18 0919: Subjective HPI/CC On Admission Date Seen by Provider: Jan 31, 2018 Time Seen by Provider: 09:00 CC: AMS s/p code blue HPI: This is a 72yoWF clinic patient of mine who was transferred from 4th floor swing bed to ICU last night due to new onset seizure activity witnessed by RN. Pt became unresponsive and received 2 minutes of chest compressions and then became more alert and spontaneous movement restarted. Pt was at baseline yesterday and was held until Wednesday due to slight increase in wheezing where she was admitted last week for AECOPD. Pt had been up and walking with PT and had done very well last night until [id number] noted confusion on the phone last night at 2100. Pt was given her scheduled Oxycodone and then noted to have seizures. Pt has no h/o seizures. Pt was evaluated and transferred to ICU and closely monitored throughout the night and remained stable but having acute pain issues on chronic pain condition so I stopped Morphine and started Dilaudid with improved comfort. Son is at the bedside along with daughter-in- law. Dr Andrew and I evaluated the patient and have found no source of new onset seizure or AMS. CT scan was unable to be completed due to constant movement. Pt does know me when I asked her who I was. Subjective/Events-last exam Patient feels about the same Difficult to improve upon chronic issues Updated son Checked meds and labs Review of Systems General: Fatigue Focused Exam Lactate Level Objective Exam Vital Signs Vital Signs Date Time Temp Pulse Resp B/P (MAP) Pulse Ox O2 Delivery O2 Flow Rate FiO2 02/01/18 17:25 84 20 140/60 92 Nasal Cannula 2.00 02/01/18 16:00 97.6 01/29/18 07:44 36 Capillary Refill : Less Than 3 SecondsLess Than 3 Seconds General Appearance: No Apparent Distress, WD/WN, Chronically ill, Obese Respiratory: Chest Non Tender, Lungs Clear, Normal Breath Sounds, No Accessory Muscle Use, No Respiratory Distress Cardiovascular: Regular Rate, Rhythm, No Edema, No Gallop, No JVD, No Murmur, Normal Peripheral Pulses Neurologic/Psychiatric: Alert, Oriented x3, No Motor/Sensory Deficits, Normal Mood/Affect Skin: Normal Color, Warm/Dry Results/Procedures Lab Laboratory Tests 02/01/18 05:25 Patient resulted labs reviewed. Assessment/Plan Assessment and Plan Assess & Plan/Chief Complaint Assessment: New onset seizure with AMS CT brain revealing evidence of possible posterior reversible encephalopathy syndrome but clearance has been rapid Severe acute on chronic pain AECOPD s/p steroids History of congestive heart failure History of acute kidney failure due to diuresis now normal creatinine today History of severe lymphedema dramatic improvement after seeing lymphedema specialist 3 times but hospital in [place] Severe obstructive sleep apnea may need BiPAP Obesity hypoventilation syndrome Hypertension ESBL UTI acute on chronic managed by Dr. Macias Plan: Continue treatment plan Monitor closely DC soon Diagnosis/Problems Diagnosis/Problems (1) New onset seizure Status: Acute (2) Altered mental status Status: Resolved Qualifiers: Altered mental status type: unspecified Qualified Codes: R41.82 - Altered mental status, unspecified Resolution Date/Time: 01/30/18 @ 11:44 (3) Severe pain Status: Acute (4) POST CODE Status: Acute (5) Obesity hypoventilation syndrome Status: Chronic (6) COPD exacerbation Status: Resolved (7) Essential (primary) hypertension Status: Chronic (8) Wheezing Status: Acute (9) Lymphedema Status: Chronic (10) CHF (congestive heart failure) Status: Chronic (11) Posterior reversible encephalopathy syndrome (PRES) Status: Acute Clinical Quality Measures DVT/VTE Risk/Contraindication: Risk Factor Score Per Nursin RFS Level Per Nursing on Admit: 4+=Very High ANTONIO VELOZ MED STUDENT 01/31/18 1033: Subjective Subjective/Events-last exam Pt was awake and oriented x3 this morning on exam Reports feeling better, but still a little "sluggish" Had difficulty ambulating with PT this morning Cough is becoming more productive- able to cough up some sputum Denies SOB or chest pain Denies any pain No bowel/bladder concerns Focused Exam Respiratory: Decreased Breath Sounds Cardiovascular: Regular Rate, Rhythm Objective Exam General Appearance: Chronically ill, Obese Respiratory: Chest Non Tender, Decreased Breath Sounds Cardiovascular: Regular Rate, Rhythm Extremity: Normal Capillary Refill, Non Tender Neurologic/Psychiatric: Alert, Oriented x3, Normal Mood/Affect Assessment/Plan Assessment and Plan Assess & Plan/Chief Complaint Assessment: s/p new onset seizure with AMS, unknown source AECOPD s/p IV steroids Acute on chronic UTI - S. aureus on urine culture Hx CHF Hx acute kidney failure due to diuresis - creatinine improved Severe VALDO requiring biPAP Obesity hypoventilation syndrome HTN Plan: Transfer to 4th floor today Continue seizure meds Continue to minimize sedating medications Watch for CO2 retention Ambulate IS Monitor labs closely Diagnosis/Problems Diagnosis/Problems (1) New onset seizure Status: Acute (2) POST CODE Status: Acute (3) Renal insufficiency Status: Chronic (4) VALDO on CPAP Status: Chronic (5) CHF (congestive heart failure) Status: Chronic (6) Essential (primary) hypertension Status: Chronic (7) COPD exacerbation Status: Resolved (8) Obesity hypoventilation syndrome Status: Chronic (9) Altered mental status Status: Resolved Qualifiers: Altered mental status type: unspecified Qualified Codes: R41.82 - Altered mental status, unspecified Resolution Date/Time: 01/30/18 @ 11:44 SIENNA MADERA DO Jan 31, 2018 09:19 ANTONIO VELOZ MED STUDENT Jan 31, 2018 10:33
--- NOTE | 2018-01-31 09:19 | Diagnostic Imaging Report ---
EXAMINATION: Chest radiograph, portable AP view. DATE: January 31, 2018 at 0333 hours. INDICATION: 72-year-old female, respiratory failure. COMPARISON: January 30, 2018 at 0409 hrs. FINDINGS: The right-sided venous line overlies the upper right atrium. Stable overall appearance of the cardiomediastinal silhouette. There is no identified pneumothorax. There is redemonstrated nonspecific left basilar airspace consolidation which is unchanged. There are anchors overlying the right humeral head. There is spine hardware. There are technical limitations of the exam. IMPRESSION: 1. Redemonstrated and grossly unchanged nonspecific bibasilar airspace consolidation. Dictated by: Dictated on workstation # [id number]
--- NOTE | 2018-01-31 09:43 | Physical Therapy Daily Note ---
PT Daily Note-Current Subjective Patient reports fatigue and agrees to minimal activity. Pain Numeric Pain Scale: 5-Moderate Pain Location Body Site: Generalized Pain Description: Chronic Mental Status Patient Orientation: Normal For Age Attachments: Oxygen, Barney Catheter Transfers Therapy Code Descriptions/Definitions Functional [place] Measure: 0=Not Assessed/NA 4=Minimal Assistance 1=Total Assistance 5=Supervision or Setup 2=Maximal Assistance 6=Modified [place] 3=Moderate Assistance 7=Complete [place] Therapy Quality Codes: 6 Independent with activity with or without an assistive device 5 Patient requires set up or clean up by helper. Patient completes activity by themselves 4 Supervision or touching assist (CGA). [place] provide cues , steadying assist 3 The helper provides less than half the effort to complete the activity 2 The helper provides more than half the effort to complete the activity 1 Dependent. The helper does all the effort to complete an activity 7 Patient refused to complete or attempt activity 9 The patient did not perform the activity before the current illness or injury 88 Not attempted due to Medical conditions or safety concerns Transfers (B, C, W/C) (FIM): 5 Scootin Rollin Supine to/from Sit: 5 Sit to/from Stand: 5 Bed to/from Chair: 5 patient performed sit to stand transfers x 3 sets with marching exercises. Declined ambulation due to fatigue Exercises Seated Therapy Exercises: Ankle pumps, Long arc quads Seated Reps: 10 Standing: Marching Standing Reps: 10 (3 sets) Assessment It appears, patient self limits due to fatigue. is aware. PT to continue to encourage patient to participate and ambulate with therapy to improve current LOF. PT Grinding Room Inspector Goals Grinding Room Inspector Goals PT Grinding Room Inspector Goals Time Frame: Feb 04, 2018 Transfers (B,C,W/C) (FIM): 6 Gait (FIM): 3 Gait distance (FIM): 3=150 ft Distance: 250 Gait Level of Assist: 5 Gait Assistive Device: FWW PT Plan Treatment/Plan Treatment Plan: Continue Plan of Care Treatment Plan: Bed Mobility, Functional Strength, Gait, Safety, Transfers Treatment Duration: Feb 04, 2018 Frequency: 6 times per week Estimated Hrs Per Day: .25 hour per day Patient and/or Family Agrees t: Yes Time/GCodes Time In: 900 Time Out: 915 Total Billed Treatment Time: 15 Total Billed Treatment 1 visit FA 15 min GARO NICK PT Jan 31, 2018 09:43
--- NOTE | 2018-01-31 09:59 | Occ Therapy Progress Note ---
Therapy Progress Note OT order received to cancel services. [id number] SLEMA MAURICIO OT Jan 31, 2018 09:59
[2018-01-31] MEDS: ADVAIR HFA 115/21 MCG INHALER 8 GM IH SCH ×2 (11:04→19:18)
[2018-01-31] MEDS ORDERED: FERR325T18 PO (11:44)
[2018-01-31] MEDS: HYDROXYCHLOROQUINE 200 MG (PLAQUENIL) TAB PO SCH ×2 (11:50→17:12)
[2018-01-31 12:00] VITALS: BP 132/62
[2018-01-31 16:00] VITALS: BP 113/62
[2018-01-31 20:00] VITALS: BP 127/60
[2018-01-31] MEDS: LEVETIRACETAM 500 MG (KEPPRA) TAB PO SCH (20:13)
[2018-01-31] MEDS: SIMvastatin 20 MG (ZOCOR) TAB PO SCH (20:13)
[2018-01-31] MEDS: GABAPENTIN 300 MG (NEURONTIN) CAP PO SCH (20:13)
[2018-01-31] MEDS: PANTOPRAZOLE 40 MG (PROTONIX) TAB PO SCH (20:14)
[2018-01-31] MEDS: VITAMIN D3 1,000 UNITS (CHOLECALCIFEROL) TABLET PO SCH (20:14)
[2018-02-01 00:26] VITALS: BP 106/52
[2018-02-01 04:20] VITALS: BP 122/56
[2018-02-01 05:31] LABS: BASOPHILS % (AUTO) 0 % (0-10); EOSINOPHILS # (AUTO) 0.3 10^3/uL (0.0-0.3); EOSINOPHILS % (AUTO) 2 % (0-10); HEMATOCRIT 40 % (35-52); HEMOGLOBIN 12.7 G/DL (11.5-16.0); LYMPHOCYTES # (AUTO) 1.7 X 10^3 (1.0-4.0); LYMPHOCYTES % (AUTO) 15 % (12-44); MEAN CORPUSCULAR HEMOGLOBIN 30 PG (25-34); MEAN CORPUSCULAR HGB CONC 32 G/DL (32-36); MEAN CORPUSCULAR VOLUME 93 FL (80-99); MEAN PLATELET VOLUME 10.9 FL (7.4-10.4); MONOCYTES # (AUTO) 1.2 X 10^3 (0.0-1.0); MONOCYTES % (AUTO) 11 % (0-12); NEUTROPHILS # (AUTO) 7.6 X 10^3 (1.8-7.8); NEUTROPHILS % (AUTO) 71 % (42-75); PLATELET COUNT 161 10^3/uL (130-400); RED BLOOD COUNT 4.28 10^6/uL (4.35-5.85); RED CELL DISTRIBUTION WIDTH 14.3 % (10.0-14.5); WHITE BLOOD COUNT 10.7 10^3/uL (4.3-11.0)
[2018-02-01] MEDS: KCL 10 MEQ TAB (MICRO K) PO SCH (05:48)
[2018-02-01 05:51] LABS: ALBUMIN 3.1 GM/DL (3.2-4.5); BILIRUBIN,TOTAL 1.8 MG/DL (0.1-1.0); CALCIUM 9.1 MG/DL (8.5-10.1); CREATININE SERUM 0.94 MG/DL (0.60-1.30); POTASSIUM 3.8 MMOL/L (3.6-5.0); TOTAL PROTEIN 5.2 GM/DL (6.4-8.2)
[2018-02-01 08:00] VITALS: BP 140/60
--- NOTE | 2018-02-01 08:01 | Cardiology Progress Note ---
Subjective Date Seen by Provider: Feb 01, 2018 Time Seen by Provider: 08:00 Subjective/Events-last exam patient is laying down in bed, complaining of fatigue, did not sleep well last night Review of Systems General: No Chills, No Night Sweats; Fatigue; No Malaise, No Appetite, No Other HEENT: No Head Aches, No Visual Changes, No Eye Pain, No Ear Pain, No Dysphasia , No Sinus Congestion, No Post Nasal Drip, No Sore Throat, No Other Pulmonary: Dyspnea, Cough; No Pleuritic Chest Pain, No Other Cardiovascular: Edema; No: Chest Pain, Palpitations, Orthopnea, Paroxysmal Noc. Dyspnea, Lt Headedness, Other Focused Exam Lactate Level 01/29/18 11:15: Lactic Acid Level 1.14 Objective-Cardiology Exam Last Set of Vital Signs Vital Signs 01/29/18 02/01/18 07:44 04:20 Temp 98.4 Pulse 79 Resp 20 B/P (MAP) 122/56 (78) Pulse Ox 99 O2 Delivery Nasal Cannula O2 Flow Rate 4.00 FiO2 36 Capillary Refill : Less Than 3 SecondsLess Than 3 Seconds I&O Intake and Output 02/01/18 00:00 Intake Total 1904 ml Output Total 2000 ml Balance -96 ml Intake Oral 1799 ml IV Total 105 ml Output Urine Total 2000 ml General: Alert, Oriented X3, Cooperative HEENT: Atraumatic, PERRLA Neck: Supple, No JVD, No Thyromegaly Lungs: Normal Air Movement, Other (bilateral rhonchi) Heart: Regular Rate, Normal S1, Normal S2, No Murmurs Abdomen: Normal Bowel Sounds, Soft, No Tenderness, No Hepatosplenomegaly, No Masses Extremities: No Clubbing, No Cyanosis, Normal Pulses, No Tenderness/Swelling, Other (peripheral edema) Skin: No Rashes, No Breakdown, No Significant Lesion Neuro: Normal Speech, Strength at 5/5 X4 Ext, Normal Tone, Sensation Intact Psych/Mental Status: Mental Status NL, Mood NL Results Lab Laboratory Tests 02/01/18 05:25 A/P-Cardiology Admission Diagnosis Seizure Syncope Hypertension COPD Assessment/Plan Status post seizure, transferred to the intensive care unit, workup has been negative except for hypoxemia, feeling better at this time. COPD, status post acute exacerbation. Feeling better at this time, still having some wheezing and shortness of breath. Managed by Dr. Andrew History of Nonischemic cardiomyopathy, MUGA scan was done in November 2015 showing ejection fraction 55 percent, last echocardiogram in January 24, 2018 showed ejection fraction 50-55 percent, dilated left atrium, moderate MR, PA 30 mmHg. Significant improvement, no signs of heart failure. Continue to monitor Mild coronary artery disease nonobstructive disease by cardiac catheterization done in May 2014. Continue to monitor at this time. Peripheral arterial disease, history of abdominal aortogram with angiogram to the lower extremities done by Dr. Cosme, reported to good vessel runoff to the lower extremities, medical therapy was recommended, repeat Peripheral runoff showed total occlusion of the anterior tibial artery and both lower extremities with brisk flow. It was done in March 2016, patient was referred by Dr. De Leon to [facility] and had angioplasty and stent done using drug-eluting stent Promus 3.524 mm to the anterior tibial artery on the right side with good results. ulcer has healed well, received treatment for lymphedema and improved. Peripheral edema, chronic, lymphedema. Better at this time. Receiving therapy in [place], continue to monitor Hypertension, continue to monitor blood pressure Moderate bilateral carotid stenosis, ultrasound was done in October 2016. Continue to monitor History of CREST syndrome, managed by her dry box operator. History of multiple back and knee surgeries, continue to monitor Chronic renal insufficiency, seen and established with Dr. Saundra Craig History of elevated liver enzymes, followed by primary care physician Obesity, BMI is 46, patient was educated on weight loss Clinical Quality Measures DVT/VTE Risk/Contraindication: Risk Factor Score Per Nursin RFS Level Per Nursing on Admit: 4+=Very High DEVI LONDON MD Feb 01, 2018 08:01
[2018-02-01] MEDS ORDERED: LEVE500T6 PO (08:36)
--- NOTE | 2018-02-01 08:40 | D/C HH Face to Face Order ---
D/C Face to Face Orders Instructions for Patient Via [facility], Patient Instructions/FollowUp: Dr Parada in [address] Andrew in 2 weeks Physician to follow Patient: Dr Clare Parada Discharge Diet for Home: Cardiac Diet Patient Problems: New onset seizure Obesity hypoventilation syndrome HTN Chronic pain Patient Data-Allergies,Ht & Wt Patient Allergies: Coded Allergies: NSAIDS (Non-Steroidal Anti-Inflamma (Unverified Allergy, Mild, 03/18/09) Penicillins (Verified Allergy, Unknown, 01/03/06) Sulfa (Sulfonamide Antibiotics) (Verified Allergy, Unknown, 01/03/06) aspirin (Verified Allergy, Unknown, 01/03/06) carbamazepine (Verified Allergy, Unknown, 09/20/06) cephalexin (Verified Allergy, Unknown, 01/03/06) iodine (Verified Allergy, Unknown, 01/03/06) latex (Unverified Allergy, Unknown, 06/21/13) Height (Feet): 5 Height (Inches): 3.00 Weight (Pounds): 267 Weight (Ounces): 10.0 Home Health Need/Face to Face Date of Face to Face: Feb 01, 2018 Clinical Findings: Generalized weakness and fatigue, Immune-compromised, Pain with ambulation, Shortness of breath, Unsteady gait I have seen Pt [id number]: Yes Discharged To: Home Diagnosis/Conditions: New onset seizure Obesity hypoventilation syndrome HTN Chronic pain Patient is Homebound due to: Alina fall risk due to instabilty, Pain w/ ambulation, Shortness of breath/distress Homebound Status Due to the above stated illness, injury or surgical procedure (medical condition or diagnosis) and associated clinical findings, the patient is homebound because of his/her inability to leave home except with aid of a supportive device and/or person AND leaving the home requires a considerable and taxing effort or is medically contraindicated. Pt req the following assistanc: Walker Home Health Nursing Orders Home Health Services Order: Nursing Services, Hog Sticker-Evaluate & Treat, Physical Therapy-Evaluate & Treat Certify Stmt I certify that this patient is under my care and that I, a nurse practitioner or a physician; a administrative support assistant working with me, had a face to face encounter that - meets the physician face to face encounter requirements with this patient as dated. CLARE PARADA DO Feb 01, 2018 08:40
--- NOTE | 2018-02-01 08:41 | Discharge Summary-Hospitalist ---
SIENNA MADERA DO 02/01/18 0841: Diagnosis/Chief Complaint Date of Admission Jan 29, 2018 at 00:38 Date of Discharge Admission Diagnosis Assessment: New onset seizure CT brain pending AMS unknown source but w/u pending and will stop steroids Severe acute on chronic pain AECOPD on steroids History of congestive heart failure History of acute kidney failure due to diuresis now normal creatinine today History of severe lymphedema dramatic improvement after seeing lymphedema specialist 3 times but hospital in [place] Severe obstructive sleep apnea may need BiPAP Obesity hypoventilation syndrome Hypertension ESBL UTI acute on chronic managed by Dr. Macias Plan: Lab w/u CT brain to r/o mass Keppra Stop steroids in case steroid myopathy Supportive care Catheter Discharge Diagnosis (1) New onset seizure Status: Acute (2) POST CODE Status: Acute (3) Renal insufficiency Status: Chronic (4) VALDO on CPAP Status: Chronic (5) CHF (congestive heart failure) Status: Chronic (6) Essential (primary) hypertension Status: Chronic (7) COPD exacerbation Status: Resolved (8) Obesity hypoventilation syndrome Status: Chronic (9) Altered mental status Status: Resolved Discharge Summary Discharge Physical Exam Allergies: Coded Allergies: NSAIDS (Non-Steroidal Anti-Inflamma (Unverified Allergy, Mild, 03/18/09) Penicillins (Verified Allergy, Unknown, 01/03/06) Sulfa (Sulfonamide Antibiotics) (Verified Allergy, Unknown, 01/03/06) aspirin (Verified Allergy, Unknown, 01/03/06) carbamazepine (Verified Allergy, Unknown, 09/20/06) cephalexin (Verified Allergy, Unknown, 01/03/06) iodine (Verified Allergy, Unknown, 01/03/06) latex (Unverified Allergy, Unknown, 06/21/13) Vitals & I&Os Vital Signs Date Time Temp Pulse Resp B/P (MAP) Pulse Ox O2 Delivery O2 Flow Rate FiO2 02/01/18 17:25 84 20 140/60 92 Nasal Cannula 2.00 02/01/18 16:00 97.6 01/29/18 07:44 36 General Appearance: No Apparent Distress, WD/WN, Chronically ill, Obese Respiratory: Chest Non Tender, Lungs Clear, Normal Breath Sounds, No Accessory Muscle Use, No Respiratory Distress Cardiovascular: Regular Rate, Rhythm, No Edema, No Gallop, No JVD, No Murmur, Normal Peripheral Pulses Neurologic/Psychiatric: Alert, Oriented x3, No Motor/Sensory Deficits, Normal Mood/Affect Hospital Course Hospital course reviewed and agree with details. Patient's son was updated in- depth and he understands the complexity of his mother's medical issues and agrees with DC. Labs (last 24 hrs) Laboratory Tests 02/01/18 05:25: White Blood Count 10.7, Red Blood Count 4.28L, Hemoglobin 12.7, Hematocrit 40, Mean Corpuscular Volume 93, Mean Corpuscular Hemoglobin 30, Mean Corpuscular Hemoglobin Concent 32, Red Cell Distribution Width 14.3, Platelet Count 161, Mean Platelet Volume 10.9H, Neutrophils (%) (Auto) 71, Lymphocytes (%) (Auto) 15 , Monocytes (%) (Auto) 11, Eosinophils (%) (Auto) 2, Basophils (%) (Auto) 0, Neutrophils # (Auto) 7.6, Lymphocytes # (Auto) 1.7, Monocytes # (Auto) 1.2H, Eosinophils # (Auto) 0.3, Basophils # (Auto) 0.0, Sodium Level 140, Potassium Level 3.8, Chloride Level 100, Carbon Dioxide Level 30, Anion Gap 10, Blood Urea Nitrogen 21H, Creatinine 0.94, Estimat Glomerular Filtration Rate 59, BUN/ Creatinine Ratio 22, Glucose Level 117H, Calcium Level 9.1, Corrected Calcium 9.8, Total Bilirubin 1.8H, Aspartate Amino Transf (AST/SGOT) 17, Alanine Aminotransferase (ALT/SGPT) 16, Alkaline Phosphatase 47, Total Protein 5.2L, Albumin 3.1L Microbiology 01/29/18 Urine Culture - Final, Complete Staphylococcus aureus Patient resulted labs reviewed. Pending Labs Discussion & Recommendations Discharge Planning: <30 minutes discharge planning Discharge Home Medications: Active Scripts Active Levetiracetam 500 Mg Tablet 500 Mg PO BID Reported Ferrous Sulfate 325 Mg Tablet 325 Mg PO DAILY Ipratropium [place] 0.2 Mg/1 Ml Solution 0.2 Mg NEB TID PRN Guaifenesin AC Cough Syrup (Guaifenesin/Codeine Phosphate) 473 Ml Liquid 5 Ml PO Q6H PRN Oxycodone HCl 20 Mg Tablet 20 Mg PO 0000,0800,1400 Cranberry (Cranberry Fruit) 400 Mg Tablet 400 Mg PO BID Allopurinol 100 Mg Tablet 100 Mg PO DAILY Vitamin C (Ascorbate Calcium) 500 Mg Tablet 500 Mg PO DAILY Detrol LA (Tolterodine Tartrate) 4 Mg Cap 4 Mg PO DAILY Macrodantin (Nitrofurantoin Macrocrystal) 100 Mg Capsule 100 Mg PO 1700 Bumetanide 1 Mg Tablet 1 Mg PO DAILY Guaifenesin Dm Syrup (Guaifenesin/Dextromethorphan) 5 Ml Syrup 5 Ml PO Q6H PRN Calmoseptine Ointment (Menthol/Lanolin/Calamine/Znox) 71 Gm Oint TP UD PRN APPLY TO JARETT AREA Locoid (Hydrocortisone Butyrate) 15 Gm Cream..g. TP BID PRN Vitamin A & D Ointment (Vitamin A & D) 60 Gm Oint TP DAILY PRN APPLY TO BLE & FEET Oxycodone HCl 20 Mg Tablet 20 Mg PO Q6H PRN Simvastatin 20 Mg Tablet 20 Mg PO HS Plavix (Clopidogrel Bisulfate) 75 Mg Tablet 75 Mg PO DAILY Allergy Relief (Cetirizine HCl) 10 Mg Tablet 10 Mg PO DAILY Carvedilol 12.5 Mg Tablet 12.5 Mg PO BID Enalapril Maleate 5 Mg Tablet 2.5 Mg PO DAILY TAKES 1/2 (5MG) TABLET Duloxetine HCl 60 Mg Capsule.dr 60 Mg PO DAILY Hydroxychloroquine Sulfate 200 Mg Tablet 200 Mg PO 1200,1700 Gabapentin 300 Mg Capsule 300 Mg PO HS Nexium (Esomeprazole Magnesium) 40 Mg Cap 40 Mg PO HS Advair 250-50 Diskus (Fluticasone/Salmeterol) 1 Each Blst.w.dev 1 Puff IH BID Fluticasone Propionate 16 Gm [place].susp 1 [place] NS DAILY PRN Vitamin D-3 (Cholecalciferol (Vitamin D3)) 2,000 Unit Capsule 2,000 Unit PO HS Potassium Chloride 10 Meq Capsule.er 20 Meq PO 1200,1700 TAKES 2 (10MEQ) CAPSULES Instructions to patient/family Please see electronic discharge instructions given to patient. Clinical Quality Measures DVT/VTE Risk/Contraindication: Risk Factor Score Per Nursin RFS Level Per Nursing on Admit: 4+=Very High ANTONIO VELOZ MED STUDENT 02/01/18 0906: Discharge Summary Discharge Physical Exam Allergies: Coded Allergies: NSAIDS (Non-Steroidal Anti-Inflamma (Unverified Allergy, Mild, 03/18/09) Penicillins (Verified Allergy, Unknown, 01/03/06) Sulfa (Sulfonamide Antibiotics) (Verified Allergy, Unknown, 01/03/06) aspirin (Verified Allergy, Unknown, 01/03/06) carbamazepine (Verified Allergy, Unknown, 09/20/06) cephalexin (Verified Allergy, Unknown, 01/03/06) iodine (Verified Allergy, Unknown, 01/03/06) latex (Unverified Allergy, Unknown, 06/21/13) General Appearance: Chronically ill Respiratory: Lungs Clear, Decreased Breath Sounds Cardiovascular: Regular Rate, Rhythm Neurologic/Psychiatric: Alert, Oriented x3 Hospital Course 72 yo WF who was transferred from 4th floor swing bed to ICU due to new onset seizure activity and a code blue. Pt required 2 minutes of chest compressions and then became more alert. She was closely monitored in the ICU 24 hours after the event and remained stable except for acute on chronic pain. 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 Pt was maintained on IV Keppra and did not have any more seizures during her hospital stay. On discharge she still has a productive cough but lungs are clear. Pt will be discharged home to [place] with home health and PT. Problem Qualifiers (1) Altered mental status: Altered mental status type: unspecified Qualified Codes: R41.82 - Altered mental status, unspecified SIENNA MADERA DO Feb 01, 2018 08:41 ANTONIO VELOZ MED STUDENT Feb 01, 2018 09:06
[2018-02-01] MEDS: lisINopril 10 MG (PRINIVIL) TABLET PO SCH (08:55)
[2018-02-01] MEDS: BUMETANIDE 1 MG (BUMEX) TAB PO SCH (08:55)
[2018-02-01] MEDS: LORATADINE (CLARITIN) 10 MG TAB PO SCH (08:55)
[2018-02-01] MEDS: DULoxetine 30 MG (CYMBALTA) CAP PO SCH (08:55)
[2018-02-01] MEDS: LEVETIRACETAM 500 MG (KEPPRA) TAB PO SCH (08:55)
[2018-02-01] MEDS: LACTULOSE SYRUP 10GM/15ML (ENULOSE) 30ML UDC PO SCH (08:55)
[2018-02-01] MEDS: CLOPIDOGREL 75 MG (PLAVIX) TABLET PO SCH (08:55)
[2018-02-01] MEDS: CARVEDILOL 12.5 MG (COREG) TABLET PO SCH (08:55)
--- NOTE | 2018-02-01 08:55 | Pulmonary Progress Note ---
Subjective Date Seen by a Provider: Feb 01, 2018 Time Seen by a Provider: 08:54 Subjective/Events-last exam Patient reports she is feeling ok today, tired because she had trouble sleeping. Sepsis Event Evaluation Height, Weight, BMI Height: 5'3.00" Weight: 267lbs. 10.0oz. 121.120048aq; 48.7 BMI Method:Stated Focused Exam Lactate Level 01/29/18 11:15: Lactic Acid Level 1.14 Respiratory: Chest Non Tender, No Accessory Muscle Use Cardiovascular: Regular Rate, Rhythm, No Murmur Skin: warm/dry Exam Exam Vital Signs Date Time Temp Pulse Resp B/P (MAP) Pulse Ox O2 Delivery O2 Flow Rate FiO2 02/01/18 04:20 98.4 79 20 122/56 (78) 99 Nasal Cannula 4.00 02/01/18 01:00 80 02/01/18 00:26 98.6 78 20 106/52 (70) 94 Nasal Cannula 4.00 01/31/18 21:00 Nasal Cannula 2.00 01/31/18 20:00 98.8 83 22 127/60 (82) 96 Nasal Cannula 4.00 01/31/18 19:19 95 Nasal Cannula 2.00 01/31/18 19:00 86 01/31/18 16:00 97.7 71 20 113/62 (79) 96 Nasal Cannula 4.00 01/31/18 15:23 94 Nasal Cannula 2.00 01/31/18 13:00 71 01/31/18 12:00 97.8 74 22 132/62 (85) 100 Nasal Cannula 4.00 01/31/18 11:07 97 Nasal Cannula 4.00 01/31/18 10:30 Nasal Cannula 4.00 I & O 02/01/18 07:00 Intake Total 1654 ml Output Total 1725 ml Balance -71 ml Height & Weight Height: 5'3.00" Weight: 267lbs. 10.0oz. 121.569395mt; 48.7 BMI Method:Stated General Appearance: Chronically ill, Obese HEENT: PERRL/EOMI, Normal ENT Inspection, Pharynx Normal Neck: Full Range of Motion, Normal Inspection, Non Tender, Supple Respiratory: Chest Non Tender, Decreased Breath Sounds Cardiovascular: Regular Rate, Rhythm Capillary Refill: Less Than 3 Seconds Gastrointestinal: normal bowel sounds, non tender, soft Extremity: Normal Capillary Refill, Non Tender Neurologic/Psychiatric: Alert, Oriented x3, Normal Mood/Affect Skin: Warm/Dry Results Lab Laboratory Tests 01/31/18 03:35 02/01/18 05:25 Assessment/Plan Assessment/Plan COPDAE -- Doubt pneumonia -condition slowly improving -SVNS, advair - CT of chest with head CT show no acute change Atelectasis -Increase activity -IS Seizure -Head CT showed no acute change -Seizure precautions -keppra Pulmonary edema -home bumex 1mg daily VALDO with OHS -Uses home CPAP- however has not been able to tolerate Chronic lymphadenopathy CKD HX of ESBL and MRSA Dr. Parada plans to discharge patient today to assisted living facility for further recovery. Patient is content with this plan. She would like to modify CPAP machine for home use, if possible. TONI DAY MED STUDENT Feb 01, 2018 08:55
[2018-02-01] MEDS: A & D OINT 60 GM TUBE TP SCH (08:56)
--- NOTE | 2018-02-01 08:57 | Physician Query Clarification ---
PQ-CHF Specificity The medical record reflects the following clinical scenario: History/Risk Factors: Acute CHF documented in your progress notes. Pulmonary edema documented by Dr. Andrew in his progress notes. Clinical Findings: 01/29 xray Impression: The appearance of the chest has worsened since the prior study as the left retrocardiac region is now opacified by atelectasis/ infiltrate and fluid. Per Dr. Busch's consult- last echo of 01/24/18:LVEF 50-55%, dilated left atrium , moderate MR, PA 30mmHg. Treatment: Bumex 1 mg, Coreg 12.5 mg. Question: Can you further specify the acuity &/or type of CHF per the clinical indicators above? Please document a response below PHYSICIAN RESPONSE Acuity: Acute on Chronic Type: Diastolic In responding to this query, please exercise your independent professional judgment. The purpose of this communication is to more accurately reflect the complexity of your patients condition. The fact that a question is asked does not imply that any particular answer is desired or expected. Thank you for your timely response to this clarification. Requestors name: Wendy Robertson [facility] Phone # ext [phone] or [phone] THIS PHYSICIAN QUERY FORM IS A PERMANENT PART OF THE MEDICAL RECORD WENDY ROBERTSON Feb 01, 2018 08:57 SIENNA MADERA DO Feb 01, 2018 20:29
[2018-02-01] MEDS: ADVAIR HFA 115/21 MCG INHALER 8 GM IH SCH (09:11)
[2018-02-01] MEDS: RT-ALBUTEROL/IPRATROPIUM 3 ML (DUONEB) VIAL INH SCH ×3 (09:11→14:50)
[2018-02-01] MEDS: HYDROXYCHLOROQUINE 200 MG (PLAQUENIL) TAB PO SCH (11:17)
--- NOTE | 2018-02-01 11:31 | Physical Therapy Daily Note ---
PT Daily Note-Current Subjective Patient agrees to PT. She reports fatigue. Pain Numeric Pain Scale: 0-No Pain Location: No Pain Reported Mental Status Patient Orientation: Normal For Age Attachments: Oxygen Transfers Therapy Code Descriptions/Definitions Functional [place] Measure: 0=Not Assessed/NA 4=Minimal Assistance 1=Total Assistance 5=Supervision or Setup 2=Maximal Assistance 6=Modified [place] 3=Moderate Assistance 7=Complete [place] Therapy Quality Codes: 6 Independent with activity with or without an assistive device 5 Patient requires set up or clean up by helper. Patient completes activity by themselves 4 Supervision or touching assist (CGA). [place] provide cues , steadying assist 3 The helper provides less than half the effort to complete the activity 2 The helper provides more than half the effort to complete the activity 1 Dependent. The helper does all the effort to complete an activity 7 Patient refused to complete or attempt activity 9 The patient did not perform the activity before the current illness or injury 88 Not attempted due to Medical conditions or safety concerns Transfers (B, C, W/C) (FIM): 5 Scootin Rollin Supine to/from Sit: 5 Sit to/from Stand: 5 Bed to/from Chair: 5 Gait Training Gait (FIM): 5 Distance (FIM): 3=150 ft Distance: 175' x 2 Gait Level of Assist: 5 Gait Assistive Device: FWW forearm lean on FWW 175' x 2 with very slow, steady gait sequence with 1 standing recovery period due to fatigue. Assessment Patient requires time to complete all functional tasks and is up in recliner with needs met. Patient to dismiss to [place] on this date for continued care. PT Detention Goals Apartment Assistant Manager Goals PT Detention Goals Time Frame: Feb 04, 2018 Transfers (B,C,W/C) (FIM): 6 Gait (FIM): 3 Gait distance (FIM): 3=150 ft Distance: 250 Gait Level of Assist: 5 Gait Assistive Device: FWW PT Plan Treatment/Plan Treatment Plan: Discontinue PT Treatment Plan: Bed Mobility, Functional Strength, Gait, Safety, Transfers Treatment Duration: Feb 04, 2018 Frequency: 6 times per week Estimated Hrs Per Day: .25 hour per day Patient and/or Family Agrees t: Yes Discharge Recommendations Therapy D/C Recommendations: Physical Therapy Home Care Time/GCodes Time In: 1042 Time Out: 1105 Total Billed Treatment Time: 23 Total Billed Treatment 1 visit FA x 2 23 min SANDOVAL,GARO PT Feb 01, 2018 11:31
[2018-02-01 12:00] VITALS: BP 128/82
[2018-02-01 16:00] VITALS: BP 142/74
[2018-02-01 17:25] VITALS: BP 140/60
== END 2018-02-01 17:25 | DRG 100 ==
LOC: ICU 00:38 → 4TH 01-31 10:30
PROVIDERS: ADMIT Internal Medicine; ATTEND Internal Medicine
DX: R56.9 Unspecified convulsions (principal); R41.82 Altered mental status, unspecified; E66.2 Morbid (severe) obesity with alveolar hypoventilation; Z68.42 Body mass index [BMI] 45.0-49.9, adult; J44.1 Chronic obstructive pulmonary disease with (acute) exacerbation; J98.11 Atelectasis; I13.0 Hypertensive heart and chronic kidney disease with heart failure and stage 1 through stage 4 chronic kidney disease, or unspecified chronic kidney disease; I50.33 Acute on chronic diastolic (congestive) heart failure; N18.9 Chronic kidney disease, unspecified; I42.8 Other cardiomyopathies; N39.0 Urinary tract infection, site not specified; R09.02 Hypoxemia; T38.0X5A Adverse effect of glucocorticoids and synthetic analogues, initial encounter; I89.0 Lymphedema, not elsewhere classified; M34.1 CR(E)ST syndrome; I25.10 Atherosclerotic heart disease of native coronary artery without angina pectoris; M06.9 Rheumatoid arthritis, unspecified; M19.91 Primary osteoarthritis, unspecified site; F41.9 Anxiety disorder, unspecified; E78.00 Pure hypercholesterolemia, unspecified; G62.9 Polyneuropathy, unspecified; M54.9 Dorsalgia, unspecified; I34.0 Nonrheumatic mitral (valve) insufficiency; K21.9 Gastro-esophageal reflux disease without esophagitis; I73.9 Peripheral vascular disease, unspecified; I65.23 Occlusion and stenosis of bilateral carotid arteries; Z95.820 Peripheral vascular angioplasty status with implants and grafts; Z87.891 Personal history of nicotine dependence; Z85.3 Personal history of malignant neoplasm of breast
CPT/HCPCS: 36415; 36600; 70450; 70496; 70498; 71045; 71275; 80048; 80053; 81000; 82550; 82805; 83605; 83615; 83735; 84100; 84484; 85025; 85652; 86141; 87077; 87088; 87186; 93005; 94640; 94760

== ENCOUNTER 2018-02-17 12:39 | Inpatient (IN) | payer MEDICARE, OTHER ==
[~2018-02-17] VITALS: Ht 162.6 cm; Wt 122.7 kg
[~2018-02-17 12:39] MED LIST changes: +FERR325T18 PO; +LEVE500T6 PO
--- OUTSIDE RECORDS SUMMARY | 2018-02-17 12:47 | XMS REPORT | Clinical Summary ---
Author Author [facility] Organization [facility] Address Unknown Phone Unavailable Care Team Providers Care Or Rn Name Role Phone Bulmaro Byrne MD Unavailable Michelle Messina MD Unavailable Brooks Vu PA-C Unavailable Clare Parada DO PCP Brody Mcintosh MD Unavailable Sheri Aranda MD Unavailable Source Comments Some departments are not documenting in the electronic medical record. If you do not see the information that you expected, contact Release of Information in the Health Information Management department at [phone] for further assistance in locating additional records.[facility] Allergies Comments Active Allergy Reactions Severity Noted Date Allergy recorded in SMS: ASA Aspirin HIVES 10/27/2004 Pt reports that she had a rxn several years ago to the iodine in salt and that she has had iv contrast after that without any problems (unclear if pre-meds were used prior to the contrast). Iodine SEE COMMENTS, 10/27/2004 ANGIOEDEMA Cephalexin HIVES 02/04/2010 Latex RASH, ITCHING 02/04/2010 Nsaids (Non-Steroidal HIVES 07/25/2009 Anti-Inflammatory Drug) Allergy recorded in SMS: PCN Penicillins RASH, STOMACH 10/27/2004 UPSET, ITCHING Carbamazepine FEVER 02/04/2010 Medications End Date Status Medication Sig Dispensed Refills Start Date Active lisinopril (PRINIVIL, Take 40 mg by 0 ZESTRIL) 40 mg tablet mouth Daily. Active hydroxychloroquine Take 200 mg 0 (PLAQUENIL) 200 mg tablet by mouth Twice Daily. Active pramipexole (MIRAPEX) Take 0.25 mg 0 0.25 mg tablet by mouth Twice Daily. Active furosemide (LASIX) 40 mg Take 40 mg by 0 tablet mouth Daily. Active MULTIVITAMINS Take 1 Tab by 0 (MULTI-VITAMIN PO) mouth At Bedtime Daily. Active triamterene/hydrochloroth Take 1 Tab by 0 iazide (MAXZIDE) 37.5/25 mouth Daily. mg PO tablet Active esomeprazole DR(+) Take 40 mg by 0 (NEXIUM) 40 mg PO capsule mouth At Bedtime Daily. Active duloxetine DR (CYMBALTA) Take 60 mg by 0 60 mg PO capsule mouth Daily. Active Ascorbic Acid (VITAMIN C) Take 1,000 mg 0 1,000 mg PO Tab by mouth At Bedtime Daily. Active meclizine (ANTIVERT) 25 Take 25 mg by 0 mg PO tablet mouth twice daily as needed. When traveling for motion sickness Active metoprolol XL (TOPROL XL) Take 25 mg by 0 25 mg tablet mouth daily. Active cholecalciferol (Vitamin Take 1,000 0 D3) (VITAMIN D-3) 1,000 Units by units tablet mouth daily. Active cyanocobalamin(+) Take 1,000 0 (VITAMIN B-12) 500 mcg mcg by mouth tablet daily. Active methadone (DOLOPHINE; Take 10 mg by 0 METHADOSE) 10 mg tablet mouth at bedtime daily Active potassium chloride SR Take 10 mEq 0 (K-DUR) 10 mEq tablet by mouth daily. Active CARBOXYMETHYLCELLULOSE Place 1 Drop 0 SODIUM (REFRESH OP) into or around eye(s) as Needed. 1 drop each eye as needed for comfort Active oxyCODone-acetaminophen Take 1-2 Tabs 0 (PERCOCET; ENDOCET; by mouth ROXICET) 5-325 mg tablet every 4 hours as needed Max 12 tabs/day Active Problems Problem Noted [...] Comments Brother Father Mother Sister Social History Date Tobacco Use Types Packs/Day Years Used Quit: 02/22/1993 Former Smoker Cigarettes 2 30 Smokeless Tobacco: Never Used Alcohol Use Drinks/Week oz/Week Comments No Sex Assigned at Date Recorded Not on file Industry Job Start Date Occupation Not on file Not on file Not on file Travel End Travel History Travel Start No recent travel history available. Last Filed Vital Signs Time Taken Vital Sign Reading 01/17/2013 3:21 PM PHARMACEUTICAL ENGINEER Blood Pressure 145/72 01/17/2013 3:21 PM PHARMACEUTICAL ENGINEER Pulse 101 01/17/2013 3:21 PM PHARMACEUTICAL ENGINEER Temperature 36.9 C (98.4 F) 01/17/2013 3:21 PM PHARMACEUTICAL ENGINEER Respiratory Rate 20 12/01/2012 11:37 AM CDT Oxygen Saturation 94% - Inhaled Oxygen - Concentration 01/17/2013 3:21 PM PHARMACEUTICAL ENGINEER Weight 120.8 kg (266 lb 6.4 oz) 01/17/2013 3:21 PM PHARMACEUTICAL ENGINEER Height 163.2 cm (5' 4.25") 01/17/2013 3:21 PM PHARMACEUTICAL ENGINEER Body Mass Index 45.37 Plan of Treatment Health Maintenance Due Date Last Done Comments PHYSICAL (COMPREHENSIVE) 1952 EXAM DTAP/TDAP VACCINES (1 - 06/05/1963 Tdap) BREAST CANCER SCREENING 1985 COLORECTAL CANCER 06/05/1995 SCREENING SHINGLES RECOMBINANT 06/05/1995 VACCINE (1 of 2) OSTEOPOROSIS 2010 SCREENING/MONITORING PNEUMONIA (PCV13/PPSV23) 2010 VACCINES (1 of 2 - PCV13) INFLUENZA VACCINE 09/22/2017 HEPATITIS C SCREENING Completed 01/17/2013 Results Not on filefrom Last 3 Months Insurance Payer Benefit Subscriber ID Type Phone Address Plan / Group [facility] xxxxxxxxxxxx PPO PREF CARE [facility] Advance Directives Patient has advance care planning documents, and code status on file. For more information, please contact: [facility] [address] [place] [address] Date Inactivated Comments Code Status Date Activated 04/11/2012 2:35 PM Full Code 04/07/2012 5:36 PM Provider has discussed Code Status No, discussion not w/Patient or Family? necessary based on Dx 02/24/2010 12:48 PM Full Code 02/20/2010 3:57 PM
[2018-02-17 13:13] LABS: BASOPHILS % (AUTO) 1 % (0-10); EOSINOPHILS # (AUTO) 0.4 10^3/uL (0.0-0.3); EOSINOPHILS % (AUTO) 7 % (0-10); HEMATOCRIT 36 % (35-52); HEMOGLOBIN 11.6 G/DL (11.5-16.0); LYMPHOCYTES # (AUTO) 1.4 X 10^3 (1.0-4.0); LYMPHOCYTES % (AUTO) 22 % (12-44); MEAN CORPUSCULAR HEMOGLOBIN 30 PG (25-34); MEAN CORPUSCULAR HGB CONC 32 G/DL (32-36); MEAN CORPUSCULAR VOLUME 95 FL (80-99); MEAN PLATELET VOLUME 10.6 FL (7.4-10.4); MONOCYTES % (AUTO) 16 % (0-12); NEUTROPHILS # (AUTO) 3.3 X 10^3 (1.8-7.8); NEUTROPHILS % (AUTO) 54 % (42-75); PLATELET COUNT 183 10^3/uL (130-400); RED BLOOD COUNT 3.81 10^6/uL (4.35-5.85); RED CELL DISTRIBUTION WIDTH 14.8 % (10.0-14.5); WHITE BLOOD COUNT 6.1 10^3/uL (4.3-11.0)
[2018-02-17 13:14] LABS: BILIRUBIN,URINE NEGATIVE (NEGATIVE); CLARITY,URINE CLEAR; COLOR,URINE YELLOW; GLUCOSE, URINE (UA) NEGATIVE (NEGATIVE); KETONES,URINE NEGATIVE (NEGATIVE); LEUKOCYTE ESTERASE ,URINE 1+ (NEGATIVE); NITRITE,URINE NEGATIVE (NEGATIVE); PH,URINE 5 (5-9); PROTEIN,URINE NEGATIVE (NEGATIVE); UROBILINOGEN,URINE NORMAL (NORMAL)
--- NOTE | 2018-02-17 13:18 | ED Neurological Problem ---
General Chief Complaint: Altered Mental Status Stated Complaint: UNRESPONSIVE Nursing Triage Note: pt presents to ed via ems from [facility] with complaints of increased lethargy, shaking, and staff had a difficulty time waking her up. upon arrival pt is alert and oriented but appears fatigued, Nursing Sepsis Screen: No Definite Risk Source: patient Exam Limitations: no limitations History of Present Illness Date Seen by Provider: Feb 17, 2018 Time Seen by Provider: 13:17 Initial Comments To ER per EMS from [facility] with reports of increased lethargy and shaking. Upon arrival to ER patient is alert and oriented. The shaking is apparently not new, but it is increased from baseline. Patient herself states that she feels fine and she has no complaints. Timing/Duration: 1-3 hours Severity: moderate Allergies and Home Medications Allergies Coded Allergies: NSAIDS (Non-Steroidal Anti-Inflamma (Unverified Allergy, Mild, 03/18/09) Penicillins (Verified Allergy, Unknown, 01/03/06) Sulfa (Sulfonamide Antibiotics) (Verified Allergy, Unknown, 01/03/06) aspirin (Verified Allergy, Unknown, 01/03/06) carbamazepine (Verified Allergy, Unknown, 09/20/06) cephalexin (Verified Allergy, Unknown, 01/03/06) iodine (Verified Allergy, Unknown, 01/03/06) latex (Unverified Allergy, Unknown, 06/21/13) Home Medications Allopurinol 100 Mg Tablet, 100 MG PO DAILY, (Reported) Ascorbate Calcium 500 Mg Tablet, 500 MG PO DAILY, (Reported) Bumetanide 1 Mg Tablet, 1 MG PO DAILY, (Reported) Carvedilol 12.5 Mg Tablet, 12.5 MG PO BID, (Reported) Cetirizine HCl 10 Mg Tablet, 10 MG PO DAILY, (Reported) Cholecalciferol (Vitamin D3) 2,000 Unit Capsule, 2,000 UNIT PO HS, (Reported) Clopidogrel Bisulfate 75 Mg Tablet, 75 MG PO DAILY, (Reported) Cranberry Fruit 400 Mg Tablet, 400 MG PO BID, (Reported) Duloxetine HCl 60 Mg Capsule.dr, 60 MG PO DAILY, (Reported) Enalapril Maleate 5 Mg Tablet, 2.5 MG PO DAILY, (Reported) TAKES 1/2 (5MG) TABLET Esomeprazole Magnesium 40 Mg Cap, 40 MG PO HS, (Reported) Ferrous Sulfate 325 Mg Tablet, 325 MG PO DAILY, (Reported) Fluticasone Propionate 16 Gm [place].susp, 1 SPRAY NS DAILY PRN for ALLERGIES, ( Reported) Fluticasone/Salmeterol 1 Each Blst.w.dev, 1 PUFF IH BID, (Reported) Gabapentin 300 Mg Capsule, 300 MG PO HS, (Reported) Guaifenesin/Codeine Phosphate 473 Ml Liquid, 5 ML PO Q6H PRN for COUGH, ( Reported) Guaifenesin/Dextromethorphan 5 Ml Syrup, 5 ML PO Q6H PRN for COUGH, (Reported) Hydrocortisone Butyrate 15 Gm Cream..g., TP BID PRN for INFLAMMATION, (Reported) Hydroxychloroquine Sulfate 200 Mg Tablet, 200 MG PO 1200,1700, (Reported) Ipratropium [place] 0.2 Mg/1 Ml Solution, 0.2 MG NEB TID PRN for SHORTNESS OF BREATH, (Reported) Ipratropium/Albuterol Sulfate 3 Ml Ampul.neb, 3 ML NEB TID, (Reported) Menthol/Lanolin/Calamine/Znox 71 Gm Oint, TP UD PRN for IRRITATION, (Reported) APPLY TO JARETT AREA Nitrofurantoin Macrocrystal 100 Mg Capsule, 100 MG PO 1700, (Reported) Oxycodone HCl 20 Mg Tablet, 20 MG PO Q6H PRN for PAIN-SEVERE, (Reported) Oxycodone HCl 20 Mg Tablet, 20 MG PO 0000,0800,1600, (Reported) Potassium Chloride 10 Meq Capsule.er, 20 MEQ PO 1200,1700, (Reported) TAKES 2 (10MEQ) CAPSULES Simvastatin 20 Mg Tablet, 20 MG PO HS, (Reported) Tolterodine Tartrate 4 Mg Cap, 4 MG PO DAILY, (Reported) Topiramate 25 Mg Tablet, 25 MG PO HS, (Reported) Vitamin A & D 60 Gm Oint, TP DAILY PRN, (Reported) APPLY TO BLE & FEET Patient Home Medication List Home Medication List Reviewed: Yes Review of Systems Review of Systems Constitutional: see HPI, weakness Eyes: No Symptoms Reported Ears, Nose, Mouth, Throat: no symptoms reported Respiratory: no symptoms reported Cardiovascular: no symptoms reported Genitourinary: no symptoms reported Musculoskeletal: no symptoms reported Skin: no symptoms reported Past Bvboklt-Qfrkaq-Idfjlv Hx Patient Social History Alcohol Use: Denies Use Recreational Drug Use: No Smoking Status: Former Smoker Type Used: Cigarettes Former Smoker, Quit: Mar 25, 1994 2nd Hand Smoke Exposure: No Recent Foreign Travel: No Contact w/Someone Who Travel: No Recent Infectious Disease Expo: No Recent Hopitalizations: No Immunizations Up To Date Tetanus Booster (TDap): Unknown PED Vaccines UTD: No Date of Pneumonia Vaccine: Feb 24, 2011 Seasonal Allergies Seasonal Allergies: No Past Medical History Surgeries: Yes (MULT KNEE, BACK FUSION, NASAL SURGERY, ROTATOR CUFF REPAIR, RT BREAST L) Adenoidectomy, Appendectomy, Hysterectomy, Lumpectomy, Orthopedic, Tonsillectomy , Tubal Ligation Respiratory: Yes (pulmoanary edema) Asthma, Sleep Apnea, COPD Currently Using CPAP: Yes Cardiac: Yes (CHF) Chronic Edema/Swelling, High Cholesterol, Hypertension Neurological: Yes Neuropathy Reproductive Disorders: No Female Reproductive Disorders: Denies Sexually Transmitted Disease: No HIV/AIDS: No Genitourinary: Yes (chronic kidney dz) Renal Failure Gastrointestinal: Yes Gastroesophageal Reflux, Gall Bladder Disease Musculoskeletal: Yes (KNEE SURGERIES, BACK SURGERY) Degenerate Disk Disease, Arthritis, Rheumatoid Arthritis, Chronic Back Pain Endocrine: No Loss of Vision: Bilateral Hearing Impairment: Denies Cancer: Yes Breast Did You Recieve Any Treatments: No What Type of Treatment Did You: Surgical Intervention Psychosocial: Yes Anxiety, Depression Integumentary: No Blood Disorders: Yes (IMMUNOGLOBULIN DEFICIENCY) Adverse Reaction/Blood Tranf: No Family Medical History Cancer G8 SISTER Congestive heart failure 19 FATHER Family history: Cardiovascular disease 19 FATHER 19 MOTHER G8 BROTHER Family history: Coronary thrombosis 19 FATHER 19 MOTHER Family history: Hypertension 19 MOTHER Stroke 19 MOTHER G8 BROTHER No Pertinent Family Hx Physical Exam Vital Signs Vital Signs - First Documented 02/17/18 12:52 Temp 98.6 Pulse 80 Resp 16 B/P (MAP) 113/40 (64) Pulse Ox 100 Capillary Refill : Less Than 3 Seconds Height, Weight, BMI Height: 5'4.00" Weight: 242lbs. 10.0oz. 109.508705qt; 48.7 BMI Method:Stated General Appearance: WD/WN, no apparent distress HEENT: PERRL/EOMI, normal ENT inspection Neck: non-tender, full range of motion Respiratory: no respiratory distress, no accessory muscle use Gastrointestinal: normal bowel sounds, non tender, soft Extremities: normal range of motion, non-tender, other (chronic swelling and discoloration of bilateral lower extremities) Neurologic/Psychiatric: alert, normal mood/affect, oriented x 3 Cra[place] Nerves: normal hearing, normal speech, PERRL Skin: normal color, warm/dry Progress/Results/Core Measures Results/Orders Lab Results Laboratory Tests Test 02/17/18 12:58 02/17/18 13:57 Range/Units White Blood Count 6.1 4.3-11.0 10^3/uL Red Blood Count 3.81 L 4.35-5.85 10^6/uL Hemoglobin 11.6 11.5-16.0 G/DL Hematocrit 36 35-52 % Mean Corpuscular Volume 95 80-99 FL Mean Corpuscular Hemoglobin 30 25-34 PG Mean Corpuscular Hemoglobin Concent 32 32-36 G/DL Red Cell Distribution Width 14.8 H 10.0-14.5 % Platelet Count 183 130-400 10^3/uL Mean Platelet Volume 10.6 H 7.4-10.4 FL Neutrophils (%) (Auto) 54 42-75 % Lymphocytes (%) (Auto) 22 12-44 % Monocytes (%) (Auto) 16 H 0-12 % Eosinophils (%) (Auto) 7 0-10 % Basophils (%) (Auto) 1 0-10 % Neutrophils # (Auto) 3.3 1.8-7.8 X 10^3 Lymphocytes # (Auto) 1.4 1.0-4.0 X 10^3 Monocytes # (Auto) 1.0 0.0-1.0 X 10^3 Eosinophils # (Auto) 0.4 H 0.0-0.3 10^3/uL Basophils # (Auto) 0.0 0.0-0.1 10^3/uL Urine Color YELLOW Urine Clarity CLEAR Urine pH 5 5-9 Urine Specific [place] 1.020 1.016-1.022 Urine Protein NEGATIVE NEGATIVE Urine Glucose (UA) NEGATIVE NEGATIVE Urine Ketones NEGATIVE NEGATIVE Urine Nitrite NEGATIVE NEGATIVE Urine Bilirubin NEGATIVE NEGATIVE Urine Urobilinogen NORMAL NORMAL MG/DL Urine Leukocyte Esterase 1+ H NEGATIVE Urine RBC (Auto) NEGATIVE NEGATIVE Urine RBC NONE /HPF Urine WBC RARE /HPF Urine Squamous Epithelial Cells 0-2 /HPF Urine Crystals NONE /LPF Urine Bacteria NEGATIVE /HPF Urine Casts NONE /LPF Urine Mucus NEGATIVE /LPF Urine Culture Indicated NO Sodium Level 137 135-145 MMOL/L Potassium Level 5.2 H 3.6-5.0 MMOL/L Chloride Level 103 98-107 MMOL/L Carbon Dioxide Level 27 21-32 MMOL/L Anion Gap 7 5-14 MMOL/L Blood Urea Nitrogen 26 H 7-18 MG/DL Creatinine 2.26 H 0.60-1.30 MG/DL Estimat Glomerular Filtration Rate 21 BUN/Creatinine Ratio 12 Glucose Level 81 70-105 MG/DL Calcium Level 9.4 8.5-10.1 MG/DL Corrected Calcium 10.0 8.5-10.1 MG/DL Total Bilirubin 1.0 0.1-1.0 MG/DL Aspartate Amino Transf (AST/SGOT) 23 5-34 U/L Alanine Aminotransferase (ALT/SGPT) 13 0-55 U/L Alkaline Phosphatase 86 40-136 U/L Troponin I < 0.30 <0.30 NG/ML B-Type Natriuretic Peptide 16.7 <100.0 PG/ML Total Protein 5.9 L 6.4-8.2 GM/DL Albumin 3.2 3.2-4.5 GM/DL Blood Gas Puncture Site R RADIAL Blood Gas Patient Temperature 98.2 Arterial Blood pH 7.36 L 7.37-7.43 Arterial Blood Partial Pressure CO2 52 H 35-45 MMHG Arterial Blood Partial Pressure O2 82 79-93 MMHG Arterial Blood HCO3 28 H 23-27 MMOL/L Arterial Blood Total CO2 29.9 21.0-31.0 MMOL/L Arterial Blood Oxygen Saturation 97 94-100 % Arterial Blood Base Excess 3.3 H -2.5-2.5 MMOL/L Izaiah Test YES-POS Blood Gas Ventilator Setting NO Blood Gas Inspired Oxygen 2L NC My Orders Orders - ROE BAUTISTA APRN Cbc With Automated Diff (02/17/18 12:49) Comprehensive Metabolic Panel (02/17/18 12:49) Ua Culture If Indicated (02/17/18 12:49) Ekg Tracing (02/17/18 12:49) Troponin I (02/17/18 12:49) Iv Heplock-Insert (Order) (02/17/18 12:49) Chest 1 View, Ap/Pa Only (02/17/18 12:49) Ns Iv 1000 Ml (Sodium Chloride 0.9%) (02/17/18 13:45) Arterial Blood Gas (02/17/18 14:00) D50w (Emergency) Syringe (Dextrose 50% 5 (02/17/18 14:30) Insulin (Regular) Human (Humulin R (Per (02/17/18 14:30) BNP (02/17/18 14:26) Vital Signs/I&O 02/17/18 12:52 Temp 98.6 Pulse 80 Resp 16 B/P (MAP) 113/40 (64) Pulse Ox 100 Blood Pressure Mean: 64 Departure Communication (Admissions) Time/Spoke to Admitting Phy: 14:18 Discussed the case with Dr. Madera. We will admit, consult Dr. Andrew and Dr. Carbajal. I spoke with Dr. Andrew area given the hyperkalemia he would recommend insulin and dextrose and Kayexalate. Time/Spoke to Consulting Phy: 14:[address] Carbajal. He agrees to consult. Impression Primary Impression: LEIGHANN (acute kidney injury) Additional Impression: Hyperkalemia Disposition: ADMITTED INPATIENT Condition: Stable Admissions Decision to Admit Reason: Admit from ER (General) Decision to Admit/Date: Feb 17, 2018 Time/Decision to Admit Time: 14:15 Departure-Patient Inst. Referrals: SIENNA MADERA DO (PCP/Family) Primary Care Physician ROE BAUTISTA APRN Feb 17, 2018 13:18
[2018-02-17 13:31] LABS: ALANINE AMINOTRANSFERASE 13 U/L (0-55); ALBUMIN 3.2 GM/DL (3.2-4.5); ALKALINE PHOSPHATASE 86 U/L (40-136); BUN/CREATININE RATIO 12; CALCIUM 9.4 MG/DL (8.5-10.1); CARBON DIOXIDE 27 MMOL/L (21-32); CHLORIDE 103 MMOL/L (98-107); CREATININE SERUM 2.26 MG/DL (0.60-1.30); GFR ESTIMATED 21; GLUCOSE 81 MG/DL (70-105); POTASSIUM 5.2 MMOL/L (3.6-5.0); SODIUM 137 MMOL/L (135-145); TOTAL PROTEIN 5.9 GM/DL (6.4-8.2)
[2018-02-17 13:35] LABS: BACTERIA,URINE NEGATIVE /HPF; SQUAMOUS EPITHELIAL CELL,UR 0-2 /HPF; WBC,URINE RARE /HPF
[2018-02-17] MEDS ORDERED: NS IV 1000 ML 1,000 ML IV SCH (13:45)
--- NOTE | 2018-02-17 13:47 | Diagnostic Imaging Report ---
INDICATION: Unresponsive. TIME OF EXAM: 01:25 p.m. Correlation is made with prior chest from 01/31/2018. Right-sided chest wall port has tip overlying the SVC right atrial junction. Heart size is stable. No infiltrate or failure is seen. No effusion or pneumothorax is identified. Surgical clips overlie the lower right chest. There is extensive spinal instrumentation in the lower thoracic and lumbar spine. IMPRESSION: No acute cardiopulmonary process is detected. Dictated by: Dictated on workstation # [id number]
[2018-02-17 14:06] LABS: ABG BASE EXCESS 3.3 MMOL/L (-2.5-2.5); ABG OXYGEN SATURATION 97 % (94-100); ABG PCO2 52 MMHG (35-45); ABG PH 7.36 (7.37-7.43); ABG PO2 82 MMHG (79-93); ABG TCO2 29.9 MMOL/L (21.0-31.0)
[2018-02-17 14:07] LABS: ALLENS TEST YES-POS; INSPIRED O2 2L NC; PATIENT TEMP 98.2; VENTILATOR NO
[2018-02-17] MEDS ORDERED: DEXTROSE 50% 50 ML (IMS) SYR IV ONE ×2 (14:30→18:30)
[2018-02-17] MEDS ORDERED: inSUlin (REGULAR) HUMAN 1 UNIT/0.01 ML (CHARGE PER UNIT) IJ ONE (14:30)
[2018-02-17] MEDS ORDERED: SOD POLYSTYRENE 30 GM/120 ML (KAYEXALATE) BULK BOTTLE PO NR (16:27)
[2018-02-17] MEDS ORDERED: TPR25T PO (16:29)
[2018-02-17] MEDS ORDERED: IPRA3AMP31 NEB (16:29)
[2018-02-17] MEDS ORDERED: LACTATED RINGERS 1,000 ML IV SCH (16:30)
--- NOTE | 2018-02-17 16:30 | NUR ---
UPDATED MED REC WITH MAR FROM [facility].
[2018-02-17 16:57] VITALS: BP 145/72
--- NOTE | 2018-02-17 17:55 | History & Physical-Hospitalist ---
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 She was alert and awake when she arrived to the ER and I just happened to be down there to see another patient and she reported that she didn't know why she was here. She has had a downhill slide of her medical health most recently had a seizure 3 weeks ago during hospital stay. She is on a multitude of medical issues including renal failure and chronic UTI with ESBL. She is found to have elevated creatinine with acute renal failure and hypercapnia so she was placed in the hospital with close monitoring. Source: patient Exam Limitations: clinical condition Date Seen 02/17/18 Time Seen by a Provider: 12:30 Attending Physician Clare Parada DO PCP Clare Parada DO Referring Physician Date of Admission Feb 17, 2018 at 14:38 Home Medications & Allergies Home Medications Reviewed patient Home Medication Reconciliation performed by pharmacy medication reconciliations missile tracking technician and/or nursing. Patients Allergies have been reviewed. Allergies Allergies Coded Allergies NSAIDS (Non-Steroidal Anti-Inflamma (Unverified Allergy, Mild, 03/18/09) Penicillins (Verified Allergy, Unknown, 01/03/06) Sulfa (Sulfonamide Antibiotics) (Verified Allergy, Unknown, 01/03/06) aspirin (Verified Allergy, Unknown, 01/03/06) carbamazepine (Verified Allergy, Unknown, 09/20/06) cephalexin (Verified Allergy, Unknown, 01/03/06) iodine (Verified Allergy, Unknown, 01/03/06) latex (Unverified Allergy, Unknown, 06/21/13) Past Hxopyri-Clmelm-Ghlfip Hx Past Med/Social Hx: Reviewed Nursing Past Med/Soc Hx, Reviewed and Corrections made Patient Social History Marrital Status: Employed/Student: retired Alcohol Use: Denies Use Recreational Drug Use: No Smoking Status: Former Smoker Former Smoker, Quit: Mar 25, 1994 Type Used: Cigarettes 2nd Hand Smoke Exposure: No Physical Abuse Screen: No Sexual Abuse: No Recent Foreign Travel: No Contact w/other who traveled: No Recent Hopitalizations: No Recent Infectious Disease Expo: No Immunizations Up To Date Tetanus Booster (TDap): Unknown Pediatric: No Date of Pneumonia Vaccine: Sep 22, 2013 Date of Influenza Vaccine: Nov 22, 2017 Seasonal Allergies Seasonal Allergies: No Past Medical History Surgeries: Adenoidectomy, Appendectomy, Hysterectomy, Lumpectomy, Orthopedic, Tonsillectomy, Tubal Ligation Respiratory: COPD, Pneumonia, Sleep Apnea Currently Using CPAP: Yes Cardiac: Chronic Edema/Swelling, High Cholesterol, Hypertension Neurological: Neuropathy Reproductive: No Sexually Transmitted Disease: No HIV/AIDS: No Female Reproductive Disorders: Denies Genitourinary: Renal Failure Gastrointestinal: Gastroesophageal Reflux, Gall Bladder Disease Musculoskeletal: Degenerate Disk Disease, Arthritis, Rheumatoid Arthritis, Chronic Back Pain Loss of Vision: Bilateral Hearing Impairment: Denies Cancer: Breast Did You Recieve Any Treatments: No What Type of Treatment Did You: Surgical Intervention Psychosocial: Anxiety, Depression History of Blood Disorders: Yes (IMMUNOGLOBULIN DEFICIENCY) Adverse Reaction to Blood Burrell: No Family History Cancer G8 SISTER Congestive heart failure 19 FATHER Family history: Cardiovascular disease 19 FATHER 19 MOTHER G8 BROTHER Family history: Coronary thrombosis 19 FATHER 19 MOTHER Family history: Hypertension 19 MOTHER Stroke 19 MOTHER G8 BROTHER No Pertinent Family Hx Review of Systems Constitutional: see HPI, dizziness, weakness EENTM: no symptoms reported Respiratory: no symptoms reported Cardiovascular: no symptoms reported Gastrointestinal: no symptoms reported Genitourinary: no symptoms reported Musculoskeletal: no symptoms reported Skin: no symptoms reported Psychiatric/Neurological: Tremors Physical Exam Physical Exam Vital Signs Vital Signs - First Documented 02/17/18 02/17/18 12:52 16:27 Temp 98.6 Pulse 80 Resp 16 B/P (MAP) 113/40 (64) Pulse Ox 100 O2 Delivery Nasal Cannula O2 Flow Rate 2.00 Capillary Refill : Less Than 3 Seconds Height, Weight, BMI Height: 5'4.00" Weight: 269lbs. 7.0oz. 122.722282ag; 46.3 BMI Method:Stated General Appearance: No Apparent Distress, WD/WN, Chronically ill, Obese Eyes: Bilateral Eye Normal Inspection, Bilateral Eye PERRL HEENT: PERRL/EOMI, Normal ENT Inspection, Pharynx Normal Neck: Full Range of Motion, Normal Inspection, Non Tender, Supple, Carotid Bruit Respiratory: Chest Non Tender, Lungs Clear, Normal Breath Sounds, No Accessory Muscle Use, No Respiratory Distress Cardiovascular: Regular Rate, Rhythm, No Edema, No Gallop, No JVD, No Murmur, Normal Peripheral Pulses Gastrointestinal: Normal Bowel Sounds, No Organomegaly, No Pulsatile Mass, Non Tender, Soft Back: Normal Inspection, No CVA Tenderness, No Vertebral Tenderness Extremity: Normal Capillary Refill, Normal Inspection, Normal Range of Motion, Non Tender, No Calf Tenderness, No Pedal Edema Neurologic/Psychiatric: Alert, No Motor/Sensory Deficits, Normal Mood/Affect, Disoriented Skin: Normal Color, Warm/Dry Lymphatic: No Adenopathy Results Results/Procedures Labs Laboratory Tests 02/17/18 12:58 02/18/18 03:10 Patient resulted labs reviewed. Assessment/Plan Admission Diagnosis Assessment: Altered mental status Acute renal failure Hypercapnia CHF VALDO Obesity hypoventilation syndrome Chronic renal insufficiency Chronic lymphedema Recurrent UTI Crest syndrome Hypertension History of breast cancer Plan: Close monitoring IV fluid Cardiology and pulmonology consultations are appreciated Admission Status: Inpatient Order (span 2 midnights) Reason for Inpatient Admission: Acute renal failure with hypercapnia and altered mental status will require 3 days of hospital stay Diagnosis/Problems Diagnosis/Problems (1) LEIGHANN (acute kidney injury) Status: Acute (2) Hyperkalemia Status: Acute (3) Altered mental status Status: Acute Qualifiers: Altered mental status type: unspecified Qualified Codes: R41.82 - Altered mental status, unspecified (4) VALDO on CPAP Status: Chronic (5) CHF (congestive heart failure) Status: Chronic Qualifiers: Heart failure type: unspecified Heart failure chronicity: acute on chronic Qualified Codes: I50.9 - Heart failure, unspecified (6) Posterior reversible encephalopathy syndrome (PRES) Status: Chronic (7) Severe pain Status: Chronic (8) Obesity hypoventilation syndrome Status: Chronic (9) Essential (primary) hypertension Status: Chronic (10) Lymphedema Status: Chronic Clinical Quality Measures DVT/VTE Risk/Contraindication: Risk Factor Score Per Nursin RFS Level Per Nursing on Admit: 3=High CLARE PARADA DO Feb 17, 2018 17:55
--- NOTE | 2018-02-17 18:29 | NUR ---
Notified Dr. Parada of hypoglycemia
[2018-02-17] MEDS: D5 NS 1000 ML IV SOLUTION 1,000 ML IV SCH (18:49)
[2018-02-17] MEDS ORDERED: MENTHOL/ZINC OXIDE (CALMOSEPTINE) 113 GM TUBE TP PRN (19:15)
[2018-02-17] MEDS ORDERED: FLUTICASONE NASAL SPRAY (FLONASE) 16 GM BTL NS PRN (19:15)
[2018-02-17] MEDS ORDERED: guaiFENesin/CODEINE (ROBITUSSIN AC) 10ML UDC PO PRN (19:45)
[2018-02-17] MEDS ORDERED: RT-IPRATROPIUM (ATROVENT) 0.5MG/2.5ML AMP IH PRN (20:00)
[2018-02-17] MEDS ORDERED: ONDANSETRON 4 MG/2 ML (SDV) Z0FRAN IVP PRN (20:30)
[2018-02-17] MEDS ORDERED: DOCUSATE SODIUM 100 MG (COLACE) CAP PO PRN (20:30)
[2018-02-17] MEDS ORDERED: diphenhydrAMINE 25 MG TAB (BENADRYL) PO PRN (20:30)
[2018-02-17] MEDS ORDERED: ACETAMINOPHEN 500 MG TAB (TYLENOL) PO PRN (20:30)
[2018-02-17] MEDS ORDERED: CALCIUM CARBONATE 500 MG (TUMS) TAB.CHEW PO PRN (20:30)
[2018-02-17] MEDS ORDERED: ALPRAZolam 0.25 MG (XANAX) TAB PO PRN (20:30)
[2018-02-17] MEDS: GABAPENTIN 300 MG (NEURONTIN) CAP PO SCH (21:19)
[2018-02-17] MEDS: toPIRamate 25 MG (TOPAMAX) TAB PO SCH (21:19)
[2018-02-17] MEDS: inSUlin ASPART (NovoLOG) 1 UNIT/0.01 ML (CHARGE PER UNIT) SC SCH (21:20)
[2018-02-17] MEDS: CARVEDILOL 12.5 MG (COREG) TABLET PO SCH (21:20)
[2018-02-17] MEDS: PANTOPRAZOLE 40 MG (PROTONIX) TAB PO SCH (21:20)
[2018-02-17 21:56] VITALS: BP 121/57
[2018-02-18] VITALS: BP 104/79
[2018-02-18 03:57] LABS: BASOPHILS % (AUTO) 0 % (0-10); EOSINOPHILS # (AUTO) 0.3 10^3/uL (0.0-0.3); EOSINOPHILS % (AUTO) 6 % (0-10); HEMATOCRIT 35 % (35-52); HEMOGLOBIN 11.1 G/DL (11.5-16.0); LYMPHOCYTES # (AUTO) 1.2 X 10^3 (1.0-4.0); LYMPHOCYTES % (AUTO) 21 % (12-44); MEAN CORPUSCULAR HEMOGLOBIN 30 PG (25-34); MEAN CORPUSCULAR HGB CONC 32 G/DL (32-36); MEAN CORPUSCULAR VOLUME 95 FL (80-99); MEAN PLATELET VOLUME 10.8 FL (7.4-10.4); MONOCYTES # (AUTO) 0.9 X 10^3 (0.0-1.0); MONOCYTES % (AUTO) 16 % (0-12); NEUTROPHILS # (AUTO) 3.3 X 10^3 (1.8-7.8); NEUTROPHILS % (AUTO) 57 % (42-75); PLATELET COUNT 170 10^3/uL (130-400); RED BLOOD COUNT 3.71 10^6/uL (4.35-5.85); RED CELL DISTRIBUTION WIDTH 14.5 % (10.0-14.5); WHITE BLOOD COUNT 5.8 10^3/uL (4.3-11.0)
[2018-02-18 04:10] VITALS: BP 124/62
[2018-02-18 04:18] LABS: ALBUMIN 2.9 GM/DL (3.2-4.5); BILIRUBIN,TOTAL 0.7 MG/DL (0.1-1.0); CALCIUM 8.4 MG/DL (8.5-10.1); CREATININE SERUM 1.57 MG/DL (0.60-1.30); POTASSIUM 4.3 MMOL/L (3.6-5.0); TOTAL PROTEIN 5.2 GM/DL (6.4-8.2)
[2018-02-18] MEDS: D5 NS 1000 ML IV SOLUTION 1,000 ML IV SCH (04:52)
[2018-02-18] MEDS: inSUlin ASPART (NovoLOG) 1 UNIT/0.01 ML (CHARGE PER UNIT) SC SCH ×5 (05:33→23:43)
--- NOTE | 2018-02-18 06:18 | NUR ---
THROUGHOUT THE NIGHT PT HAS BEEN HALLUCINATING SAYING THAT HER BROTHER IS IN THE ROOM WITH HER. MOST OF THE NIGHT PT ONLY KNEW HER NAME.
[2018-02-18] MEDS ORDERED: guaiFENesin/DM (ROBITUSSIN DM) 10 ML UDC PO PRN (06:30)
--- NOTE | 2018-02-18 08:36 | Pulmonary Consultation ---
History of Present Illness History of Present Illness Date of Consultation 02/18/18 08:28 Time Seen by Provider: 08:28 Date of Admission History of Present Illness 72yo with hx of multiple hospitalization, obesity with OHS and sleep apnea ( noncompliant with CPAP) presented to ED via EMS [facility] secondary to increased lethargy, and tremors. She was admitted to ICU and was given an amp of D50 last night secondary to hypoglycemia. She is requiring minimal oxygen. She is awake and alert this morning. Pt is very complex with a lot of medical issues. I am consulted for pulmonary cc mgmt. Allergies and Home Medications Allergies Coded Allergies: NSAIDS (Non-Steroidal Anti-Inflamma (Unverified Allergy, Mild, 03/18/09) Penicillins (Verified Allergy, Unknown, 01/03/06) Sulfa (Sulfonamide Antibiotics) (Verified Allergy, Unknown, 01/03/06) aspirin (Verified Allergy, Unknown, 01/03/06) carbamazepine (Verified Allergy, Unknown, 09/20/06) cephalexin (Verified Allergy, Unknown, 01/03/06) iodine (Verified Allergy, Unknown, 01/03/06) latex (Unverified Allergy, Unknown, 06/21/13) Home Medications Allopurinol 100 Mg Tablet, 100 MG PO DAILY, (Reported) Ascorbate Calcium 500 Mg Tablet, 500 MG PO DAILY, (Reported) Bumetanide 1 Mg Tablet, 1 MG PO DAILY, (Reported) Carvedilol 12.5 Mg Tablet, 12.5 MG PO BID, (Reported) Cetirizine HCl 10 Mg Tablet, 10 MG PO DAILY, (Reported) Cholecalciferol (Vitamin D3) 2,000 Unit Capsule, 2,000 UNIT PO HS, (Reported) Clopidogrel Bisulfate 75 Mg Tablet, 75 MG PO DAILY, (Reported) Cranberry Fruit 400 Mg Tablet, 400 MG PO BID, (Reported) Duloxetine HCl 60 Mg Capsule.dr, 60 MG PO DAILY, (Reported) Enalapril Maleate 5 Mg Tablet, 2.5 MG PO DAILY, (Reported) TAKES 1/2 (5MG) TABLET Esomeprazole Magnesium 40 Mg Cap, 40 MG PO HS, (Reported) Ferrous Sulfate 325 Mg Tablet, 325 MG PO DAILY, (Reported) Fluticasone Propionate 16 Gm [place].susp, 1 SPRAY NS DAILY PRN for ALLERGIES, ( Reported) Fluticasone/Salmeterol 1 Each Blst.w.dev, 1 PUFF IH BID, (Reported) Gabapentin 300 Mg Capsule, 300 MG PO HS, (Reported) Guaifenesin/Codeine Phosphate 473 Ml Liquid, 5 ML PO Q6H PRN for COUGH, ( Reported) Guaifenesin/Dextromethorphan 5 Ml Syrup, 5 ML PO Q6H PRN for COUGH, (Reported) Hydrocortisone Butyrate 15 Gm Cream..g., TP BID PRN for INFLAMMATION, (Reported) Hydroxychloroquine Sulfate 200 Mg Tablet, 200 MG PO 1200,1700, (Reported) Ipratropium [place] 0.2 Mg/1 Ml Solution, 0.2 MG NEB TID PRN for SHORTNESS OF BREATH, (Reported) Ipratropium/Albuterol Sulfate 3 Ml Ampul.neb, 3 ML NEB TID, (Reported) Menthol/Lanolin/Calamine/Znox 71 Gm Oint, TP UD PRN for IRRITATION, (Reported) APPLY TO [place] AREA Nitrofurantoin Macrocrystal 100 Mg Capsule, 100 MG PO 1700, (Reported) Oxycodone HCl 20 Mg Tablet, 20 MG PO Q6H PRN for PAIN-SEVERE, (Reported) Oxycodone HCl 20 Mg Tablet, 20 MG PO 0000,0800,1600, (Reported) Potassium Chloride 10 Meq Capsule.er, 20 MEQ PO 1200,1700, (Reported) TAKES 2 (10MEQ) CAPSULES Simvastatin 20 Mg Tablet, 20 MG PO HS, (Reported) Tolterodine Tartrate 4 Mg Cap, 4 MG PO DAILY, (Reported) Topiramate 25 Mg Tablet, 25 MG PO HS, (Reported) Vitamin A & D 60 Gm Oint, TP DAILY PRN, (Reported) APPLY TO BLE & FEET Past [id number] Hx Patient Social History Alcohol Use: Denies Use Recreational Drug Use: No Smoking Status: Former Smoker Type Used: Cigarettes Former Smoker, Quit: Mar 25, 1994 2nd Hand Smoke Exposure: No Recent Foreign Travel: No Contact w/Someone Who Travel: No Recent Infectious Disease Expo: No Recent Hopitalizations: No Physical Abuse: No Sexual Abuse: No Mistreated: No Fear: No Immunizations Up To Date Tetanus Booster (TDap): Unknown PED Vaccines UTD: No Date of Pneumonia Vaccine: Sep 22, 2013 Date of Influenza Vaccine: Nov 22, 2017 Seasonal Allergies Seasonal Allergies: No Past Medical History Surgeries: Yes (MULT KNEE, BACK FUSION, NASAL SURGERY, ROTATOR CUFF REPAIR, RT BREAST L) Adenoidectomy, Appendectomy, Hysterectomy, Lumpectomy, Orthopedic, Tonsillectomy , Tubal Ligation Respiratory: Yes (pulmoanary edema) Asthma, Sleep Apnea, COPD Currently Using CPAP: Yes Cardiac: Yes (CHF) Chronic Edema/Swelling, High Cholesterol, Hypertension Neurological: Yes Neuropathy Reproductive Disorders: No Female Reproductive Disorders: Denies Sexually Transmitted Disease: No HIV/AIDS: No Genitourinary: Yes (chronic kidney dz) Renal Failure Gastrointestinal: Yes Gastroesophageal Reflux, Gall Bladder Disease Musculoskeletal: Yes (KNEE SURGERIES, BACK SURGERY) Degenerate Disk Disease, Arthritis, Rheumatoid Arthritis, Chronic Back Pain Endocrine: No Loss of Vision: Bilateral Hearing Impairment: Denies Cancer: Yes Breast Did You Recieve Any Treatments: No What Type of Treatment Did You: Surgical Intervention Psychosocial: Yes Anxiety, Depression Integumentary: No Blood Disorders: Yes (IMMUNOGLOBULIN DEFICIENCY) Adverse Reaction/Blood Tranf: No Family Medical History Cancer G8 SISTER Congestive heart failure 19 FATHER Family history: Cardiovascular disease 19 FATHER 19 MOTHER G8 BROTHER Family history: Coronary thrombosis 19 FATHER 19 MOTHER Family history: Hypertension 19 MOTHER Stroke 19 MOTHER G8 BROTHER No Pertinent Family Hx Review of Systems Time Seen by Provider: 08:17 Constitutional: Weakness, Malaise; No: Fever, Chills, Sweats, Other Eyes: No: Pain, Vision change, Conjunctivae inflammation, Eyelid inflammation, Other, Redness ENT: Nose congestion; No: Ear pain, Ear discharge, Nose pain, Nose discharge, Mouth pain, Mouth swelling, Throat pain, Throat swelling, Other Respiratory: Cough, Dry, Shortness of breath, SOB with excertion; No: Hemoptysis Cardiovascular: Palpitations, Orthopnea, Paroxysmal Noc. Dyspnea, Edema Neurological: Weakness Sepsis Event Evaluation Height, Weight, BMI Height: 5'4.00" Weight: 276lbs. 5.0oz. 125.216204pw; 46.3 BMI Method:Stated Exam Exam Vital Signs Date Time Temp Pulse Resp B/P (MAP) Pulse Ox O2 Delivery O2 Flow Rate FiO2 02/18/18 04:10 98.4 72 20 124/62 (82) 96 Nasal Cannula 1.00 02/18/18 04:00 Nasal Cannula 1.00 02/18/18 01:00 83 02/18/18 00:00 Nasal Cannula 1.00 02/18/18 00:00 98.5 87 104/79 (87) 95 Nasal Cannula 1.00 02/17/18 21:56 98.1 88 16 121/57 (78) 100 Nasal Cannula 1.00 02/17/18 21:32 Nasal Cannula 1.00 02/17/18 21:00 92 Nasal Cannula 1.00 02/17/18 20:00 92 Nasal Cannula 1.00 02/17/18 19:00 96 02/17/18 16:57 98.4 90 16 145/72 (96) 91 Nasal Cannula 2.00 02/17/18 16:27 92 Nasal Cannula 2.00 02/17/18 16:11 89 02/17/18 15:50 91 16 117/85 (96) 98 02/17/18 12:52 98.6 80 16 113/40 (64) 100 I & O 02/18/18 07:00 Intake Total 810 ml Output Total 0 ml Balance 810 ml Height & Weight Height: 5'4.00" Weight: 276lbs. 5.0oz. 125.266428uj; 46.3 BMI Method:Stated General Appearance: No Apparent Distress, Chronically ill HEENT: PERRL/EOMI, Pharynx Normal Neck: Full Range of Motion, Non Tender, Supple Respiratory: No Accessory Muscle Use, No Respiratory Distress, Crackles, Decreased Breath Sounds Cardiovascular: Regular Rate, Rhythm, No Edema, No Gallop Capillary Refill: Less Than 3 Seconds Gastrointestinal: normal bowel sounds, non tender, soft Extremity: Normal Capillary Refill, Normal Inspection Neurologic/Psychiatric: Alert, Depressed Affect Skin: Normal Color, Warm/Dry Lymphatic: No Adenopathy Results Lab Laboratory Tests 02/17/18 12:58 02/18/18 03:10 Assessment/Plan Assessment/Plan Metabolic encephalopathy - multifactorial -Neuro checks Hypoglycemia -Change D5 o D10 -Accu checks Q 4 Obesity with OHS and VALDO -Noncompliant with home vent to mask HX of seizures -Seizures precautions HX of ESBL and MRSA JORGE DORADO DO Feb 18, 2018 08:36
[2018-02-18] MEDS: RT-ADVAIR HFA 115/21 MCG PER PUFF IH SCH ×2 (08:41→20:20)
[2018-02-18] MEDS: RT-ALBUTEROL/IPRATROPIUM 3 ML (DUONEB) VIAL INH SCH ×2 (08:41→14:46)
[2018-02-18] MEDS ORDERED: CATHETER FLUSH 10 ML SYR IV PRN (09:15)
[2018-02-18] MEDS: FERROUS SULF 325 MG (IRON) TAB PO SCH (09:59)
[2018-02-18] MEDS: TOLTERODINE LA 4 MG (DETROL) CAP PO SCH (09:59)
[2018-02-18] MEDS: LORATADINE (CLARITIN) 10 MG TAB PO SCH (09:59)
[2018-02-18] MEDS: DEXTROSE 10% IV SOLUTION 1,000 ML IV SCH ×2 (10:00→21:23)
[2018-02-18] MEDS: CLOPIDOGREL 75 MG (PLAVIX) TABLET PO SCH (10:09)
[2018-02-18] MEDS: CARVEDILOL 12.5 MG (COREG) TABLET PO SCH ×2 (10:09→21:23)
--- NOTE | 2018-02-18 10:20 | NUR ---
0940 REPORT CALLED TO RON MELCHOR 1020 PATIENT TRANSFERRED TO [facility], PERSONAL BELONGINGS IN HAND
--- NOTE | 2018-02-18 10:20 | NUR ---
Patient transferred to 424 per W/C accompanied by ICU staff. Patient and family notified and understand transfer. Personal belongings with patient. Report given to THIS RN BY SHEET METAL HELPER .
--- NOTE | 2018-02-18 11:00 | Progress Note-Hospitalist ---
Subjective HPI/CC On Admission Date Seen by Provider: Feb 18, 2018 Time Seen by Provider: 10:00 Subjective/Events-last exam Patient very drowsy Hypoglycemia continues creatinine down to 1.5 with IV fluids Overall poor prognosis Updated son and he agrees with intermediate placement Patient is a hospice candidate Review of Systems Neurological: Confusion Objective Exam Vital Signs Vital Signs Date Time Temp Pulse Resp B/P (MAP) Pulse Ox O2 Delivery O2 Flow Rate FiO2 02/18/18 12:00 97.4 76 18 134/68 (90) 94 Nasal Cannula 1.00 Capillary Refill : Less Than 3 Seconds General Appearance: No Apparent Distress, WD/WN, Chronically ill, Obese Respiratory: Chest Non Tender, Lungs Clear, Normal Breath Sounds, No Accessory Muscle Use, No Respiratory Distress Cardiovascular: Regular Rate, Rhythm, No Edema, No Gallop, No JVD, No Murmur, Normal Peripheral Pulses Neurologic/Psychiatric: Alert, No Motor/Sensory Deficits, Normal Mood/Affect, Disoriented Results/Procedures Lab Laboratory Tests 02/17/18 12:58 02/18/18 03:10 Patient resulted labs reviewed. Assessment/Plan Assessment and Plan Assess & Plan/Chief Complaint Assessment: Altered mental status Acute renal failure Hypercapnia Obesity hypoventilation syndrome History of breast cancer Recent seizure 3 weeks ago Plan: Transfer to 4th floor Poor prognosis Needs AKP Updated the son Diagnosis/Problems Diagnosis/Problems (1) Altered mental status Status: Acute Qualifiers: Altered mental status type: unspecified Qualified Codes: R41.82 - Altered mental status, unspecified (2) Obesity hypoventilation syndrome Status: Chronic (3) VALDO on CPAP Status: Chronic (4) Severe pain Status: Chronic (5) Posterior reversible encephalopathy syndrome (PRES) Status: Chronic (6) Essential (primary) hypertension Status: Chronic (7) LEIGHANN (acute kidney injury) Status: Acute (8) Lymphedema Status: Chronic (9) CHF (congestive heart failure) Status: Chronic Qualifiers: Heart failure type: unspecified Heart failure chronicity: acute on chronic Qualified Codes: I50.9 - Heart failure, unspecified (10) Hyperkalemia Status: Acute Clinical Quality Measures DVT/VTE Risk/Contraindication: Risk Factor Score Per Nursin RFS Level Per Nursing on Admit: 3=High SIENNA MADERA DO Feb 18, 2018 11:00
--- NOTE | 2018-02-18 11:45 | NUR ---
FSBS 60 -- EARLY LUNCH TRAY ORDERED
[2018-02-18 12:00] VITALS: BP 134/68
--- NOTE | 2018-02-18 12:16 | Consultation-Cardiology ---
HPI-Cardiology Cardiology Consultation Date of Consultation 02/18/18 Date of Admission Time Seen by Provider: 12:11 Indication: generalized weakness, acute renal failure HPI 72 years old lady with extensive cardiac history, was discharged recently from the hospital, referred for increasing weakness and loss of energy. Denied any chest pain, has chronic pedal edema. Was noted to have acute renal failure and noted to have episodes of hypoglycemia. She denied any chest pain. Denied any palpitation. No syncope or near syncopal episodes. No claudications Home Medications & Allergies Allergies: Coded Allergies: NSAIDS (Non-Steroidal Anti-Inflamma (Unverified Allergy, Mild, 03/18/09) Penicillins (Verified Allergy, Unknown, 01/03/06) Sulfa (Sulfonamide Antibiotics) (Verified Allergy, Unknown, 01/03/06) aspirin (Verified Allergy, Unknown, 01/03/06) carbamazepine (Verified Allergy, Unknown, 09/20/06) cephalexin (Verified Allergy, Unknown, 01/03/06) iodine (Verified Allergy, Unknown, 01/03/06) latex (Unverified Allergy, Unknown, 06/21/13) Home Medication List Reviewed: Yes [id number] Hx Patient Social History Marital Status: single Employed/Student: retired Alcohol Use: Denies Use Recreational Drug Use: No Smoking Status: Former Smoker Former smoker/When Quit: Feb 22, 1993 Type Used: Cigarettes 2nd Hand Smoke Exposure: No Recent Foreign Travel: No Recent Infectious Disease Expo: No Recent Hopitalizations: No Physical Abuse Screen: No Sexual Abuse: No Immunizations Up To Date Tetanus Booster (TDap): Unknown Date of Pneumonia Vaccine: Sep 22, 2013 Date of Influenza Vaccine: Nov 22, 2017 Past Medical History past medical history as described below Family Medical History Significant Family History: No Pertinent Family Hx Family History: Cancer G8 SISTER Congestive heart failure 19 FATHER Family history: Cardiovascular disease 19 FATHER 19 MOTHER G8 BROTHER Family history: Coronary thrombosis 19 FATHER 19 MOTHER Family history: Hypertension 19 MOTHER Stroke 19 MOTHER G8 BROTHER Review of Systems Constitutional: see HPI, malaise, weakness EENTM: see HPI, no symptoms reported Respiratory: see HPI; No cough; dyspnea on exertion; No hemoptysis, No orthopnea, No phlegm, No short of breath, No stridor, No wheezing, No other Cardiovascular: see HPI; No chest pain; edema; No Hx of Intervention, No palpitations, No syncope, No vascular heart diseas, No other Gastrointestinal: no symptoms reported, see HPI Genitourinary: no symptoms reported, see HPI Musculoskeletal: see HPI, joint pain, muscle weakness Skin: no symptoms reported, see HPI Psychiatric/Neurological: No Symptoms Reported, See HPI Reviewed Test Results Reviewed Test Results Lab Laboratory Tests Test 02/17/18 12:58 02/17/18 13:57 02/17/18 17:08 02/17/18 17:37 Range/Units White Blood Count 6.1 4.3-11.0 10^3/uL Red Blood Count 3.81 L 4.35-5.85 10^6/uL Hemoglobin 11.6 11.5-16.0 G/DL Hematocrit 36 35-52 % Mean Corpuscular Volume 95 80-99 FL Mean Corpuscular Hemoglobin 30 25-34 PG Mean Corpuscular Hemoglobin Concent 32 32-36 G/DL Red Cell Distribution Width 14.8 H 10.0-14.5 % Platelet Count 183 130-400 10^3/uL Mean Platelet Volume 10.6 H 7.4-10.4 FL Neutrophils (%) (Auto) 54 42-75 % Lymphocytes (%) (Auto) 22 12-44 % Monocytes (%) (Auto) 16 H 0-12 % Eosinophils (%) (Auto) 7 0-10 % Basophils (%) (Auto) 1 0-10 % Neutrophils # (Auto) 3.3 1.8-7.8 X 10^3 Lymphocytes # (Auto) 1.4 1.0-4.0 X 10^3 Monocytes # (Auto) 1.0 0.0-1.0 X 10^3 Eosinophils # (Auto) 0.4 H 0.0-0.3 10^3/uL Basophils # (Auto) 0.0 0.0-0.1 10^3/uL Urine Color YELLOW Urine Clarity CLEAR Urine pH 5 5-9 Urine Specific [place] 1.020 1.016-1.022 Urine Protein NEGATIVE NEGATIVE Urine Glucose (UA) NEGATIVE NEGATIVE Urine Ketones NEGATIVE NEGATIVE Urine Nitrite NEGATIVE NEGATIVE Urine Bilirubin NEGATIVE NEGATIVE Urine Urobilinogen NORMAL NORMAL MG/DL Urine Leukocyte Esterase 1+ H NEGATIVE Urine RBC (Auto) NEGATIVE NEGATIVE Urine RBC NONE /HPF Urine WBC RARE /HPF Urine Squamous Epithelial Cells 0-2 /HPF Urine Crystals NONE /LPF Urine Bacteria NEGATIVE /HPF Urine Casts NONE /LPF Urine Mucus NEGATIVE /LPF Urine Culture Indicated NO Sodium Level 137 135-145 MMOL/L Potassium Level 5.2 H 3.6-5.0 MMOL/L Chloride Level 103 98-107 MMOL/L Carbon Dioxide Level 27 21-32 MMOL/L Anion Gap 7 5-14 MMOL/L Blood Urea Nitrogen 26 H 7-18 MG/DL Creatinine 2.26 H 0.60-1.30 MG/DL Estimat Glomerular Filtration Rate 21 BUN/Creatinine Ratio 12 Glucose Level 81 70-105 MG/DL Calcium Level 9.4 8.5-10.1 MG/DL Corrected Calcium 10.0 8.5-10.1 MG/DL Total Bilirubin 1.0 0.1-1.0 MG/DL Aspartate Amino Transf (AST/SGOT) 23 5-34 U/L Alanine Aminotransferase (ALT/SGPT) 13 0-55 U/L Alkaline Phosphatase 86 40-136 U/L Troponin I < 0.30 <0.30 NG/ML B-Type Natriuretic Peptide 16.7 <100.0 PG/ML Total Protein 5.9 L 6.4-8.2 GM/DL Albumin 3.2 3.2-4.5 GM/DL Blood Gas Puncture Site R RADIAL Blood Gas Patient Temperature 98.2 Arterial Blood pH 7.36 L 7.37-7.43 Arterial Blood Partial Pressure CO2 52 H 35-45 MMHG Arterial Blood Partial Pressure O2 82 79-93 MMHG Arterial Blood HCO3 28 H 23-27 MMOL/L Arterial Blood Total CO2 29.9 21.0-31.0 MMOL/L Arterial Blood Oxygen Saturation 97 94-100 % Arterial Blood Base Excess 3.3 H -2.5-2.5 MMOL/L Izaiah Test YES-POS Blood Gas Ventilator Setting NO Blood Gas Inspired Oxygen 2L NC Glucometer 45 *L 62 L 70-110 MG/DL Test 02/17/18 21:08 02/17/18 21:40 02/17/18 22:48 02/18/18 01:00 Range/Units Glucometer 57 *L 64 L 70 85 70-110 MG/DL Test 02/18/18 03:10 02/18/18 05:26 02/18/18 07:42 02/18/18 11:30 Range/Units White Blood Count 5.8 4.3-11.0 10^3/uL Red Blood Count 3.71 L 4.35-5.85 10^6/uL Hemoglobin 11.1 L 11.5-16.0 G/DL Hematocrit 35 35-52 % Mean Corpuscular Volume 95 80-99 FL Mean Corpuscular Hemoglobin 30 25-34 PG Mean Corpuscular Hemoglobin Concent 32 32-36 G/DL Red Cell Distribution Width 14.5 10.0-14.5 % Platelet Count 170 130-400 10^3/uL Mean Platelet Volume 10.8 H 7.4-10.4 FL Neutrophils (%) (Auto) 57 42-75 % Lymphocytes (%) (Auto) 21 12-44 % Monocytes (%) (Auto) 16 H 0-12 % Eosinophils (%) (Auto) 6 0-10 % Basophils (%) (Auto) 0 0-10 % Neutrophils # (Auto) 3.3 1.8-7.8 X 10^3 Lymphocytes # (Auto) 1.2 1.0-4.0 X 10^3 Monocytes # (Auto) 0.9 0.0-1.0 X 10^3 Eosinophils # (Auto) 0.3 0.0-0.3 10^3/uL Basophils # (Auto) 0.0 0.0-0.1 10^3/uL Sodium Level 139 135-145 MMOL/L Potassium Level 4.3 3.6-5.0 MMOL/L Chloride Level 105 98-107 MMOL/L Carbon Dioxide Level 25 21-32 MMOL/L Anion Gap 9 5-14 MMOL/L Blood Urea Nitrogen 21 H 7-18 MG/DL Creatinine 1.57 H 0.60-1.30 MG/DL Estimat Glomerular Filtration Rate 32 BUN/Creatinine Ratio 13 Glucose Level 116 H 70-105 MG/DL Calcium Level 8.4 L 8.5-10.1 MG/DL Corrected Calcium 9.3 8.5-10.1 MG/DL Total Bilirubin 0.7 0.1-1.0 MG/DL Aspartate Amino Transf (AST/SGOT) 22 5-34 U/L Alanine Aminotransferase (ALT/SGPT) 12 0-55 U/L Alkaline Phosphatase 77 40-136 U/L Total Protein 5.2 L 6.4-8.2 GM/DL Albumin 2.9 L 3.2-4.5 GM/DL Glucometer 95 80 60 *L 70-110 MG/DL Test 02/18/18 11:41 Range/Units Ammonia 31 11-32 UMOL/L Physical Exam Vital Signs Vital Signs - First Documented 02/17/18 02/17/18 12:52 16:27 Temp 98.6 Pulse 80 Resp 16 B/P (MAP) 113/40 (64) Pulse Ox 100 O2 Delivery Nasal Cannula O2 Flow Rate 2.00 Capillary Refill : Less Than 3 Seconds Height, Weight, BMI Height: 5'4.00" Weight: 276lbs. 5.0oz. 125.909463wo; 46.3 BMI Method:Stated General Appearance: No Apparent Distress, WD/WN Eyes: Bilateral Eye Normal Inspection, Bilateral Eye PERRL, Bilateral Eye EOMI HEENT: PERRL/EOMI, TMs Normal, Normal ENT Inspection, Pharynx Normal Neck: Full Range of Motion, Normal Inspection, Non Tender, Supple, Carotid Bruit Respiratory: Chest Non Tender, Lungs Clear, Normal Breath Sounds, No Accessory Muscle Use, No Respiratory Distress Cardiovascular: Regular Rate, Rhythm, No Edema, No Gallop, No JVD, No Murmur, Normal Peripheral Pulses Gastrointestinal: Normal Bowel Sounds, No Organomegaly, No Pulsatile Mass, Non Tender, Soft Back: Normal Inspection, No CVA Tenderness, No Vertebral Tenderness Extremity: Normal Capillary Refill, Normal Inspection, Normal Range of Motion, Non Tender, No Calf Tenderness, No Pedal Edema Neurologic/Psychiatric: Alert, Oriented x3, No Motor/Sensory Deficits, Normal Mood/Affect Skin: Normal Color, Warm/Dry Lymphatic: No Adenopathy A/P-Cardiology Admission Diagnosis Generalized weakness Acute renal failure Hypoglycemia Coronary artery disease Assessment/Plan Generalized weakness and loss of energy, acute onset, probably secondary to dehydration and renal failure in addition to hypoglycemia. Acute on chronic renal failure, followed by Dr Donohue. Worsening renal function. Improved after aggressive hydration. Continue to monitor. History of seizure activity occurred during the last admission early in January 2018, workup was negative except for hypoxemia which was suspected to be the cause of her syncope and seizure activity. COPD, history of chronic hypoventilation. Managed by Dr. Andrew. History of Nonischemic cardiomyopathy, MUGA scan was done in November 2015 showing ejection fraction 55 percent, last echocardiogram in January 24, 2018 showed ejection fraction 50-55 percent, dilated left atrium, moderate MR, PA 30 mmHg. Significant improvement, no signs of heart failure. Continue to monitor Mild coronary artery disease nonobstructive disease by cardiac catheterization done in May 2014. Continue to monitor at this time. Peripheral arterial disease, history of abdominal aortogram with angiogram to the lower extremities done by Dr. Cosme, reported to good vessel runoff to the lower extremities, medical therapy was recommended, repeat Peripheral runoff showed total occlusion of the anterior tibial artery and both lower extremities with brisk flow. It was done in March 2016, patient was referred by Dr. De Leon to [facility] and had angioplasty and stent done using drug-eluting stent Promus 3.524 mm to the anterior tibial artery on the right side with good results. ulcer has healed well, received treatment for lymphedema and improved. Peripheral edema, chronic, lymphedema. Better at this time. Receiving therapy in [place], continue to monitor Hypertension, continue to monitor blood pressure Moderate bilateral carotid stenosis, ultrasound was done in October 2016. Continue to monitor History of CREST syndrome, managed by her ultra sound technician. History of multiple back and knee surgeries, continue to monitor History of elevated liver enzymes, followed by primary care physician Obesity, BMI is 46, patient was educated on weight loss Clinical Quality Measures DVT/VTE Risk/Contraindication: Risk Factor Score Per Nursin RFS Level Per Nursing on Admit: 3=High DEVI LONDON MD Feb 18, 2018 12:16
[2018-02-18] MEDS: NITROFURANTOIN 100 MG (MACROBID) CAPSULE PO SCH (14:28)
[2018-02-18] MEDS: HYDROXYCHLOROQUINE 200 MG (PLAQUENIL) TAB PO SCH ×2 (14:28→17:32)
[2018-02-18 16:01] VITALS: BP 132/61
[2018-02-18 20:00] VITALS: BP 122/56
[2018-02-18] MEDS: PANTOPRAZOLE 40 MG (PROTONIX) TAB PO SCH (21:23)
[2018-02-18] MEDS: toPIRamate 25 MG (TOPAMAX) TAB PO SCH (21:23)
[2018-02-18] MEDS: GABAPENTIN 300 MG (NEURONTIN) CAP PO SCH (21:23)
[2018-02-19] VITALS (7 sets, daily range): BP systolic 136–162; BP diastolic 63–74
[2018-02-19] MEDS: inSUlin ASPART (NovoLOG) 1 UNIT/0.01 ML (CHARGE PER UNIT) SC SCH ×2 (04:12→10:41)
[2018-02-19] MEDS: DEXTROSE 10% IV SOLUTION 1,000 ML IV SCH ×2 (05:20→18:10)
--- NOTE | 2018-02-19 08:21 | Pulmonary Progress Note ---
Subjective Time Seen by a Provider: 08:20 Subjective/Events-last exam No complications noted. Sepsis Event Evaluation Height, Weight, BMI Height: 5'4.00" Weight: 275lbs. 6.0oz. 124.526366si; 46.3 BMI Method:Stated Exam Exam Vital Signs Date Time Temp Pulse Resp B/P (MAP) Pulse Ox O2 Delivery O2 Flow Rate FiO2 02/19/18 04:00 96.6 70 18 138/63 (88) Nasal Cannula 2.00 02/19/18 00:00 97.9 77 18 136/64 (88) 97 Nasal Cannula 2.00 02/18/18 21:41 Nasal Cannula 1.00 02/18/18 20:12 94 Nasal Cannula 1.00 02/18/18 20:00 97.3 80 16 122/56 (78) 95 Nasal Cannula 1.00 02/18/18 16:10 97.8 02/18/18 16:01 97.8 85 18 132/61 (84) 96 Nasal Cannula 1.00 02/18/18 15:00 97.4 02/18/18 14:47 99 Nasal Cannula 1.00 02/18/18 12:00 97.4 76 18 134/68 (90) 94 Nasal Cannula 1.00 02/18/18 09:00 92 Nasal Cannula 1.00 02/18/18 08:44 Room Air 02/18/18 08:42 98 Room Air I & O 02/19/18 07:00 Intake Total 2450 ml Balance 2450 ml Height & Weight Height: 5'4.00" Weight: 275lbs. 6.0oz. 124.533208qr; 46.3 BMI Method:Stated General Appearance: No Apparent Distress, Chronically ill HEENT: PERRL/EOMI, Pharynx Normal Neck: Full Range of Motion, Non Tender, Supple Respiratory: No Accessory Muscle Use, No Respiratory Distress, Crackles, Decreased Breath Sounds Cardiovascular: Regular Rate, Rhythm, No Edema, No Gallop Capillary Refill: Less Than 3 Seconds Gastrointestinal: normal bowel sounds, non tender, soft Extremity: Normal Capillary Refill, Normal Inspection Neurologic/Psychiatric: Alert, Depressed Affect Skin: Normal Color, Warm/Dry Lymphatic: No Adenopathy Results Lab Laboratory Tests 02/17/18 12:58 02/18/18 03:10 Assessment/Plan Assessment/Plan Metabolic encephalopathy - multifactorial -Neuro checks Hypoglycemia - currently on D10 at 100cc/hr Obesity with OHS and VALDO -Noncompliant with home vent to mask HX of seizures -Seizures precautions HX of ESBL and MRSA JORGE DORADO DO Feb 19, 2018 08:21
[2018-02-19] MEDS: RT-ALBUTEROL/IPRATROPIUM 3 ML (DUONEB) VIAL INH SCH ×3 (09:12→20:11)
--- NOTE | 2018-02-19 09:44 | Cardiology Progress Note ---
Subjective Date Seen by Provider: Feb 19, 2018 Time Seen by Provider: 09:43 Subjective/Events-last exam patient is sitting in bed, eating breakfast, feeling better. Denied any chest pain Review of Systems General: No Chills, No Night Sweats; Fatigue; No Malaise, No Appetite, No Other HEENT: No Head Aches, No Visual Changes, No Eye Pain, No Ear Pain, No Dysphasia , No Sinus Congestion, No Post Nasal Drip, No Sore Throat, No Other Pulmonary: No Dyspnea, No Cough, No Pleuritic Chest Pain, No Other Cardiovascular: No: Chest Pain, Palpitations, Orthopnea, Paroxysmal Noc. Dyspnea, Edema, Lt Headedness, Other Objective-Cardiology Exam Last Set of Vital Signs Vital Signs 02/19/18 02/19/18 04:00 09:12 Temp 96.6 Pulse 70 Resp 18 B/P (MAP) 138/63 (88) Pulse Ox 94 O2 Delivery Nasal Cannula O2 Flow Rate 1.00 Capillary Refill : Less Than 3 Seconds I&O Intake and Output 02/19/18 00:00 Intake Total 2250 ml Balance 2250 ml Intake Oral 1250 ml IV Total 1000 ml # Urine Diapers 6 # Bowel Movements 3 General: Alert, Oriented X3, Cooperative HEENT: Atraumatic, PERRLA Neck: Supple, No JVD, No Thyromegaly Lungs: Clear to Auscultation, Normal Air Movement Heart: Regular Rate, Normal S1, Normal S2, No Murmurs Abdomen: Normal Bowel Sounds, Soft, No Tenderness, No Hepatosplenomegaly, No Masses Extremities: No Clubbing, No Cyanosis, Normal Pulses, No Tenderness/Swelling, Other (edema) Skin: No Rashes, No Breakdown, No Significant Lesion Neuro: Normal Gait, Normal Speech, Normal Tone, Sensation Intact Psych/Mental Status: Mental Status NL, Mood NL Results Lab Laboratory Tests Test 02/18/18 11:30 02/18/18 11:41 02/18/18 16:04 02/18/18 20:30 Range/Units Glucometer 60 *L 93 120 H 70-110 MG/DL Ammonia 31 11-32 UMOL/L Test 02/18/18 23:35 02/19/18 03:55 Range/Units Glucometer 101 95 70-110 MG/DL A/P-Cardiology Admission Diagnosis Generalized weakness Acute renal failure Hypoglycemia Coronary artery disease Assessment/Plan Generalized weakness and loss of energy, reporting improvement. Continue to monitor Acute on chronic renal failure, followed by Dr Donohue. Worsening renal function. Improved after aggressive hydration. Continue to monitor. History of seizure activity occurred during the last admission early in January 2018, workup was negative except for hypoxemia which was suspected to be the cause of her syncope and seizure activity. COPD, history of chronic hypoventilation. Managed by Dr. Andrew. History of Nonischemic cardiomyopathy, MUGA scan was done in November 2015 showing ejection fraction 55 percent, last echocardiogram in January 24, 2018 showed ejection fraction 50-55 percent, dilated left atrium, moderate MR, PA 30 mmHg. Significant improvement, no signs of heart failure. Continue to monitor Mild coronary artery disease nonobstructive disease by cardiac catheterization done in May 2014. Continue to monitor at this time. Peripheral arterial disease, history of abdominal aortogram with angiogram to the lower extremities done by Dr. Cosme, reported to good vessel runoff to the lower extremities, medical therapy was recommended, repeat Peripheral runoff showed total occlusion of the anterior tibial artery and both lower extremities with brisk flow. It was done in March 2016, patient was referred by Dr. De Leon to [facility] and had angioplasty and stent done using drug-eluting stent Promus 3.524 mm to the anterior tibial artery on the right side with good results. ulcer has healed well, received treatment for lymphedema and improved. Peripheral edema, chronic, lymphedema. Better at this time. Receiving therapy in [place], continue to monitor Hypertension, continue to monitor blood pressure Moderate bilateral carotid stenosis, ultrasound was done in October 2016. 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 History of multiple back and knee surgeries, continue to monitor History of elevated liver enzymes, followed by primary care physician Obesity, BMI is 46, patient was educated on weight loss Clinical Quality Measures DVT/VTE Risk/Contraindication: Risk Factor Score Per Nursin RFS Level Per Nursing on Admit: 3=High DEVI LONDON MD Feb 19, 2018 09:44
[2018-02-19] MEDS: CARVEDILOL 12.5 MG (COREG) TABLET PO SCH ×2 (10:42→21:17)
[2018-02-19] MEDS: FERROUS SULF 325 MG (IRON) TAB PO SCH (10:42)
[2018-02-19] MEDS: LORATADINE (CLARITIN) 10 MG TAB PO SCH (10:42)
[2018-02-19] MEDS: TOLTERODINE LA 4 MG (DETROL) CAP PO SCH (10:42)
[2018-02-19] MEDS: CLOPIDOGREL 75 MG (PLAVIX) TABLET PO SCH (10:42)
[2018-02-19] MEDS: HYDROXYCHLOROQUINE 200 MG (PLAQUENIL) TAB PO SCH ×2 (10:45→19:37)
--- NOTE | 2018-02-19 12:12 | Progress Note-Hospitalist ---
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 She was alert and awake when she arrived to the ER and I just happened to be down there to see another patient and she reported that she didn't know why she was here. She has had a downhill slide of her medical health most recently had a seizure 3 weeks ago during hospital stay. She is on a multitude of medical issues including renal failure and chronic UTI with ESBL. She is found to have elevated creatinine with acute renal failure and hypercapnia so she was placed in the hospital with close monitoring. Subjective/Events-last exam Patient still very drowsy No seizure activity Reviewed home medication and pain medication Denies any pain Reports bowels are moving I updated her on the possibility of going to some sort of rehabilitation facility at discharge instead of going back to assisted living Overall poor recovery potential Will check insulin level and C-peptide to evaluate for source of hypoglycemia but unsure if that has a factor involved in any of this Review of Systems General: Fatigue Neurological: Confusion Objective Exam Vital Signs Vital Signs Date Time Temp Pulse Resp B/P (MAP) Pulse Ox O2 Delivery O2 Flow Rate FiO2 02/19/18 09:12 94 Nasal Cannula 1.00 02/19/18 08:00 96.4 68 18 139/63 (88) Capillary Refill : Less Than 3 Seconds General Appearance: No Apparent Distress, WD/WN, Chronically ill, Obese Respiratory: Chest Non Tender, Lungs Clear, Normal Breath Sounds, No Accessory Muscle Use, No Respiratory Distress Cardiovascular: Regular Rate, Rhythm, No Edema, No Gallop, No JVD, No Murmur, Normal Peripheral Pulses Neurologic/Psychiatric: Alert, Oriented x3, No Motor/Sensory Deficits, Normal Mood/Affect, Other (Sedated and drowsy) Results/Procedures Lab Patient resulted labs reviewed. Assessment/Plan Assessment and Plan Assess & Plan/Chief Complaint Assessment: Hypoglycemia on D10 Altered mental status Acute renal failure Hypercapnia Obesity hypoventilation syndrome History of breast cancer Recent seizure 3 weeks ago Plan: Check insulin level DC D10 drip Poor prognosis Needs NHP Updated the son Diagnosis/Problems Diagnosis/Problems (1) Hypoglycemia Status: Acute (2) Altered mental status Status: Acute Qualifiers: Altered mental status type: unspecified Qualified Codes: R41.82 - Altered mental status, unspecified (3) Obesity hypoventilation syndrome Status: Chronic (4) VALDO on CPAP Status: Chronic (5) Severe pain Status: Chronic (6) Posterior reversible encephalopathy syndrome (PRES) Status: Chronic (7) Essential (primary) hypertension Status: Chronic (8) LEIGHANN (acute kidney injury) Status: Acute (9) Lymphedema Status: Chronic (10) CHF (congestive heart failure) Status: Chronic Qualifiers: Heart failure type: unspecified Heart failure chronicity: acute on chronic Qualified Codes: I50.9 - Heart failure, unspecified (11) Hyperkalemia Status: Acute Clinical Quality Measures DVT/VTE Risk/Contraindication: Risk Factor Score Per Nursin RFS Level Per Nursing on Admit: 3=High SIENNA MADERA DO Feb 19, 2018 12:11
[2018-02-19] MEDS: RT-ADVAIR HFA 115/21 MCG PER PUFF IH SCH (14:18)
[2018-02-19] MEDS ORDERED: DEXTROSE 10% IV SOLUTION 1,000 ML IV ONE (15:13)
[2018-02-19] MEDS: DEXTROSE 50% 50 ML (IMS) SYR IV ONE ×2 (18:10→21:17)
[2018-02-19 18:35] LABS: ALANINE AMINOTRANSFERASE 14 U/L (0-55); ALBUMIN 3.1 GM/DL (3.2-4.5); ALKALINE PHOSPHATASE 81 U/L (40-136); BILIRUBIN,TOTAL 0.7 MG/DL (0.1-1.0); BUN/CREATININE RATIO 11; CALCIUM 9.4 MG/DL (8.5-10.1); CARBON DIOXIDE 25 MMOL/L (21-32); CHLORIDE 104 MMOL/L (98-107); GFR ESTIMATED > 60; GLUCOSE 101 MG/DL (70-105); POTASSIUM 4.2 MMOL/L (3.6-5.0); SODIUM 138 MMOL/L (135-145); TOTAL PROTEIN 5.7 GM/DL (6.4-8.2)
[2018-02-19] MEDS: NITROFURANTOIN 100 MG (MACROBID) CAPSULE PO SCH (19:37)
[2018-02-19] MEDS: ADVAIR HFA 115/21 MCG INHALER 8 GM IH SCH (20:11)
[2018-02-19] MEDS ORDERED: DEXTROSE 50% 50 ML (IMS) SYR IV PRN (20:45)
[2018-02-19] MEDS: GABAPENTIN 300 MG (NEURONTIN) CAP PO SCH (21:17)
[2018-02-19] MEDS: PANTOPRAZOLE 40 MG (PROTONIX) TAB PO SCH (21:17)
[2018-02-19] MEDS: toPIRamate 25 MG (TOPAMAX) TAB PO SCH (21:17)
[2018-02-20] VITALS: BP 128/58
[2018-02-20 04:06] VITALS: BP 116/57
[2018-02-20 06:07] LABS: BASOPHILS % (AUTO) 1 % (0-10); EOSINOPHILS # (AUTO) 0.5 10^3/uL (0.0-0.3); EOSINOPHILS % (AUTO) 9 % (0-10); HEMATOCRIT 35 % (35-52); HEMOGLOBIN 11.1 G/DL (11.5-16.0); LYMPHOCYTES # (AUTO) 1.1 X 10^3 (1.0-4.0); LYMPHOCYTES % (AUTO) 20 % (12-44); MEAN CORPUSCULAR HEMOGLOBIN 30 PG (25-34); MEAN CORPUSCULAR HGB CONC 31 G/DL (32-36); MEAN CORPUSCULAR VOLUME 94 FL (80-99); MEAN PLATELET VOLUME 10.5 FL (7.4-10.4); MONOCYTES # (AUTO) 0.9 X 10^3 (0.0-1.0); MONOCYTES % (AUTO) 17 % (0-12); NEUTROPHILS % (AUTO) 54 % (42-75); PLATELET COUNT 188 10^3/uL (130-400); RED BLOOD COUNT 3.75 10^6/uL (4.35-5.85); RED CELL DISTRIBUTION WIDTH 14.4 % (10.0-14.5); WHITE BLOOD COUNT 5.6 10^3/uL (4.3-11.0)
[2018-02-20 06:31] LABS: ALANINE AMINOTRANSFERASE 13 U/L (0-55); ALBUMIN 2.8 GM/DL (3.2-4.5); ALKALINE PHOSPHATASE 75 U/L (40-136); BILIRUBIN,TOTAL 0.6 MG/DL (0.1-1.0); BUN/CREATININE RATIO 11; CARBON DIOXIDE 26 MMOL/L (21-32); CHLORIDE 106 MMOL/L (98-107); CREATININE SERUM 0.87 MG/DL (0.60-1.30); GFR ESTIMATED > 60; GLUCOSE 103 MG/DL (70-105); POTASSIUM 3.7 MMOL/L (3.6-5.0); SODIUM 140 MMOL/L (135-145)
--- NOTE | 2018-02-20 06:34 | Pulmonary Progress Note ---
Subjective Time Seen by a Provider: 06:22 Subjective/Events-last exam No complications noted. Sepsis Event Evaluation Height, Weight, BMI Height: 5'4.00" Weight: 276lbs. 1.6oz. 125.743701zi; 46.3 BMI Method:Stated Exam Exam Vital Signs Date Time Temp Pulse Resp B/P (MAP) Pulse Ox O2 Delivery O2 Flow Rate FiO2 02/20/18 04:06 98.2 86 18 116/57 (76) 93 Nasal Cannula 2.00 02/20/18 00:00 98.0 82 18 128/58 (81) 95 Nasal Cannula 2.00 02/19/18 20:17 98 Nasal Cannula 1.00 02/19/18 20:11 96 Room Air 02/19/18 20:10 96.2 76 18 162/72 (102) 96 Nasal Cannula 2.00 02/19/18 20:00 Nasal Cannula 1.00 02/19/18 16:20 96.2 65 20 143/67 (92) 100 Nasal Cannula 2.00 02/19/18 12:00 96.2 74 18 144/74 (97) 96 Nasal Cannula 2.00 02/19/18 09:12 94 Nasal Cannula 1.00 02/19/18 09:00 Nasal Cannula 1.00 02/19/18 08:00 96.4 68 18 139/63 (88) Nasal Cannula 2.00 I & O 02/20/18 07:00 Intake Total 3950 ml Output Total 800 ml Balance 3150 ml Height & Weight Height: 5'4.00" Weight: 276lbs. 1.6oz. [id number]; 46.3 BMI Method:Stated General Appearance: No Apparent Distress, WD/WN, Chronically ill, Obese HEENT: PERRL/EOMI, Pharynx Normal Neck: Full Range of Motion, Non Tender, Supple Respiratory: Chest Non Tender, Lungs Clear, Normal Breath Sounds, No Accessory Muscle Use, No Respiratory Distress Cardiovascular: Regular Rate, Rhythm, No Edema, No Gallop, No JVD, No Murmur, Normal Peripheral Pulses Capillary Refill: Less Than 3 Seconds Gastrointestinal: normal bowel sounds, non tender, soft Extremity: Normal Capillary Refill, Normal Inspection Neurologic/Psychiatric: Alert, Oriented x3, No Motor/Sensory Deficits, Normal Mood/Affect, Other (Sedated and drowsy) Skin: Normal Color, Warm/Dry Lymphatic: No Adenopathy Results Lab Laboratory Tests 02/19/18 18:06 02/20/18 05:58 Assessment/Plan Assessment/Plan Metabolic encephalopathy - multifactorial Hypoglycemia r/o pancreatic mass -Ct of abd pending Obesity with OHS and VALDO -Noncompliant with home vent to mask HX of seizures -Seizures precautions HX of ESBL and MRSA JORGE DORADO DO Feb 20, 2018 06:34
[2018-02-20] MEDS: RT-ALBUTEROL/IPRATROPIUM 3 ML (DUONEB) VIAL INH SCH ×2 (07:30→18:58)
[2018-02-20] MEDS: ADVAIR HFA 115/21 MCG INHALER 8 GM IH SCH ×2 (07:43→18:58)
[2018-02-20 08:00] VITALS: BP 140/76
[2018-02-20] MEDS: HYDROXYCHLOROQUINE 200 MG (PLAQUENIL) TAB PO SCH ×2 (09:00→16:56)
--- NOTE | 2018-02-20 11:04 | Cardiology Progress Note ---
Subjective Date Seen by Provider: Feb 20, 2018 Time Seen by Provider: 11:01 Subjective/Events-last exam Patient is complaining of fatigue and loss of energy, denied any chest pain Review of Systems General: No Chills, No Night Sweats; Fatigue; No Malaise, No Appetite, No Other HEENT: No Head Aches, No Visual Changes, No Eye Pain, No Ear Pain, No Dysphasia , No Sinus Congestion, No Post Nasal Drip, No Sore Throat, No Other Pulmonary: Dyspnea; No Cough, No Pleuritic Chest Pain, No Other Cardiovascular: No: Chest Pain, Palpitations, Orthopnea, Paroxysmal Noc. Dyspnea, Edema, Lt Headedness, Other Objective-Cardiology Exam Last Set of Vital Signs Vital Signs 02/20/18 08:00 Temp 97.0 Pulse 78 Resp 22 B/P (MAP) 140/76 (97) Pulse Ox 92 O2 Delivery Nasal Cannula O2 Flow Rate 2.00 Capillary Refill : Less Than 3 Seconds I&O Intake and Output 02/20/18 00:00 Intake Total 4450 ml Output Total 800 ml Balance 3650 ml Intake Oral 3450 ml IV Total 1000 ml Output Urine Total 800 ml # Voids 1 # Urine Diapers 2 # Bowel Movements 1 General: Alert, Oriented X3, Cooperative HEENT: Atraumatic, PERRLA Neck: Supple, No JVD, No Thyromegaly Lungs: Clear to Auscultation, Normal Air Movement Heart: Regular Rate, Normal S1, Normal S2, No Murmurs Abdomen: Normal Bowel Sounds, Soft, No Tenderness, No Hepatosplenomegaly, No Masses Extremities: No Clubbing, No Cyanosis, Normal Pulses, No Tenderness/Swelling, Other (edema) Skin: No Rashes, No Breakdown, No Significant Lesion Neuro: Normal Gait, Normal Speech, Normal Tone, Sensation Intact Psych/Mental Status: Mental Status NL, Mood NL Results Lab Laboratory Tests 02/19/18 18:06 02/20/18 05:58 A/P-Cardiology Admission Diagnosis Generalized weakness Acute renal failure Hypoglycemia Coronary artery disease Assessment/Plan Generalized weakness and loss of energy, reporting improvement. Continue to monitor Acute on chronic renal failure, followed by Dr Donohue. having worsening edema at this time. Restart lasix IV History of seizure activity occurred during the last admission early in January 2018, workup was negative except for hypoxemia which was suspected to be the cause of her syncope and seizure activity. COPD, history of chronic hypoventilation. Managed by Dr. Andrew. History of Nonischemic cardiomyopathy, MUGA scan was done in November 2015 showing ejection fraction 55 percent, last echocardiogram in January 24, 2018 showed ejection fraction 50-55 percent, dilated left atrium, moderate MR, PA 30 mmHg. Significant improvement, no signs of heart failure. Continue to monitor Mild coronary artery disease nonobstructive disease by cardiac catheterization done in May 2014. Continue to monitor at this time. Peripheral arterial disease, history of abdominal aortogram with angiogram to the lower extremities done by Dr. Cosme, reported to good vessel runoff to the lower extremities, medical therapy was recommended, repeat Peripheral runoff showed total occlusion of the anterior tibial artery and both lower extremities with brisk flow. It was done in March 2016, patient was referred by Dr. De Leon to [facility] and had angioplasty and stent done using drug-eluting stent Promus 3.524 mm to the anterior tibial artery on the right side with good results. ulcer has healed well, received treatment for lymphedema and improved. Peripheral edema, chronic, lymphedema. Better at this time. Receiving therapy in [place], continue to monitor Hypertension, continue to monitor blood pressure Moderate bilateral carotid stenosis, ultrasound was done in October 2016. 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 History of multiple back and knee surgeries, continue to monitor History of elevated liver enzymes, followed by primary care physician Obesity, BMI is 46, patient was educated on weight loss Clinical Quality Measures DVT/VTE Risk/Contraindication: Risk Factor Score Per Nursin RFS Level Per Nursing on Admit: 3=High DEVI LONDON MD Feb 20, 2018 11:04
[2018-02-20 12:00] VITALS: BP 130/54
--- NOTE | 2018-02-20 12:59 | Progress Note-Hospitalist ---
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 She was alert and awake when she arrived to the ER and I just happened to be down there to see another patient and she reported that she didn't know why she was here. She has had a downhill slide of her medical health most recently had a seizure 3 weeks ago during hospital stay. She is on a multitude of medical issues including renal failure and chronic UTI with ESBL. She is found to have elevated creatinine with acute renal failure and hypercapnia so she was placed in the hospital with close monitoring. Subjective/Events-last exam Excess insulin is obvious with blood sugar levels so restarted D10 and will give one half of D50 amp for blood sugars less than 70 CT scan ordered searching for insulinoma Overall patient exhibiting signs of hypoglycemia so awaiting insulin level and C -peptide that were ordered yesterday Updated Dr. Andrew regarding this last night Overall doing much better Does not want to go to a nursing facility so we will evaluate possible inpatient rehab facility placement prior to going back to assisted living Review of Systems General: Fatigue Objective Exam Vital Signs Vital Signs Date Time Temp Pulse Resp B/P (MAP) Pulse Ox O2 Delivery O2 Flow Rate FiO2 02/20/18 16:09 98.3 87 18 156/74 (101) 94 Nasal Cannula 2.00 Capillary Refill : Less Than 3 Seconds General Appearance: No Apparent Distress, WD/WN, Chronically ill, Obese Respiratory: Chest Non Tender, Lungs Clear, Normal Breath Sounds, No Accessory Muscle Use, No Respiratory Distress Cardiovascular: Regular Rate, Rhythm, No Edema, No Gallop, No JVD, No Murmur, Normal Peripheral Pulses Neurologic/Psychiatric: Alert, Oriented x3, No Motor/Sensory Deficits, Normal Mood/Affect Results/Procedures Lab Laboratory Tests 02/20/18 05:58 Patient resulted labs reviewed. Assessment/Plan Assessment and Plan Assess & Plan/Chief Complaint Assessment: Hypoglycemia on D10 CT negative for insulinoma but awaiting insulin levels and C -peptide given the glucose level of 45 when drawn Altered mental status improved Acute renal failure Hypercapnia Obesity hypoventilation syndrome History of breast cancer Recent seizure 3 weeks ago Plan: Check insulin level Maintain D10 drip with D50 1/2 amp for sugars less than 70 Poor prognosis Needs NHP versus IRF Diagnosis/Problems Diagnosis/Problems (1) Hypoglycemia Status: Acute (2) Altered mental status Status: Acute Qualifiers: Altered mental status type: unspecified Qualified Codes: R41.82 - Altered mental status, unspecified (3) Obesity hypoventilation syndrome Status: Chronic (4) VALDO on CPAP Status: Resolved Resolution Date/Time: 02/20/18 @ 18:58 (5) Severe pain Status: Chronic (6) Posterior reversible encephalopathy syndrome (PRES) Status: Chronic (7) Essential (primary) hypertension Status: Chronic (8) LEIGHANN (acute kidney injury) Status: Resolved Resolution Date/Time: 02/20/18 @ 18:58 (9) Lymphedema Status: Chronic (10) CHF (congestive heart failure) Status: Chronic Qualifiers: Heart failure type: unspecified Heart failure chronicity: acute on chronic Qualified Codes: I50.9 - Heart failure, unspecified (11) Hyperkalemia Status: Resolved Resolution Date/Time: 02/20/18 @ 18:58 Clinical Quality Measures DVT/VTE Risk/Contraindication: Risk Factor Score Per Nursin RFS Level Per Nursing on Admit: 3=High SIENNA MADERA DO Feb 20, 2018 12:59
--- NOTE | 2018-02-20 13:18 | Diagnostic Imaging Report ---
PROCEDURE: CT abdomen and pelvis with contrast. TECHNIQUE: Multiple contiguous axial images were obtained through the abdomen and pelvis after administration of intravenous contrast. INDICATION: None given. FINDINGS: The gallbladder is absent. The liver and bile ducts are normal. The spleen, pancreas, and adrenals are normal although there is some artifact from the pedicle screws and stabilization rods in the spine. The kidneys, ureters, and bladder are normal. There is fecal material scattered throughout the colon. No acute bowel abnormality is seen. There is no adenopathy. There is no retroperitoneal mass. There is no free intraperitoneal air or fluid. IMPRESSION: No acute abnormality is seen. No mass is evident. Dictated by: Dictated on workstation # [id number]
[2018-02-20] MEDS: CARVEDILOL 12.5 MG (COREG) TABLET PO SCH ×2 (15:23→21:27)
[2018-02-20] MEDS: CLOPIDOGREL 75 MG (PLAVIX) TABLET PO SCH (15:23)
[2018-02-20] MEDS: FERROUS SULF 325 MG (IRON) TAB PO SCH (15:23)
[2018-02-20] MEDS: FUROSEMIDE 40 MG/4 ML INJ (LASIX) IVP SCH ×2 (15:23→19:37)
[2018-02-20] MEDS: LORATADINE (CLARITIN) 10 MG TAB PO SCH (15:23)
[2018-02-20] MEDS: TOLTERODINE LA 4 MG (DETROL) CAP PO SCH (15:23)
[2018-02-20] MEDS: DEXTROSE 10% IV SOLUTION 1,000 ML IV SCH (15:24)
[2018-02-20 16:09] VITALS: BP 156/74
[2018-02-20] MEDS: NITROFURANTOIN 100 MG (MACROBID) CAPSULE PO SCH (16:55)
[2018-02-20] MEDS ORDERED: ENOXAPARIN 40 MG/0.4 ML (LOVENOX) SYR SC SCH (19:00)
[2018-02-20 20:03] VITALS: BP 131/66
[2018-02-20] MEDS: toPIRamate 25 MG (TOPAMAX) TAB PO SCH (21:27)
[2018-02-20] MEDS: PANTOPRAZOLE 40 MG (PROTONIX) TAB PO SCH (21:27)
[2018-02-20] MEDS: GABAPENTIN 300 MG (NEURONTIN) CAP PO SCH (21:27)
[2018-02-21 00:04] VITALS: BP 137/69
[2018-02-21 04:04] VITALS: BP 148/81
[2018-02-21] MEDS: FUROSEMIDE 40 MG/4 ML INJ (LASIX) IVP SCH (06:20)
[2018-02-21 08:00] VITALS: BP 134/63
[2018-02-21] MEDS: ADVAIR HFA 115/21 MCG INHALER 8 GM IH SCH (08:28)
[2018-02-21] MEDS: RT-ALBUTEROL/IPRATROPIUM 3 ML (DUONEB) VIAL INH SCH ×2 (08:28→14:53)
[2018-02-21] MEDS: LORATADINE (CLARITIN) 10 MG TAB PO SCH (09:04)
[2018-02-21] MEDS: DEXTROSE 10% IV SOLUTION 1,000 ML IV SCH (09:04)
[2018-02-21] MEDS: TOLTERODINE LA 4 MG (DETROL) CAP PO SCH (09:04)
[2018-02-21] MEDS: CLOPIDOGREL 75 MG (PLAVIX) TABLET PO SCH (09:04)
[2018-02-21] MEDS: CARVEDILOL 12.5 MG (COREG) TABLET PO SCH (09:04)
[2018-02-21] MEDS: FERROUS SULF 325 MG (IRON) TAB PO SCH (09:04)
--- NOTE | 2018-02-21 09:33 | Cardiology Progress Note ---
Subjective Date Seen by Provider: Feb 21, 2018 Time Seen by Provider: 09:33 Subjective/Events-last exam patient is in bed, feeling better, edema is better. No chest pain. Review of Systems General: No Chills, No Night Sweats, No Fatigue, No Malaise, No Appetite, No Other HEENT: No Head Aches, No Visual Changes, No Eye Pain, No Ear Pain, No Dysphasia , No Sinus Congestion, No Post Nasal Drip, No Sore Throat, No Other Pulmonary: No Dyspnea, No Cough, No Pleuritic Chest Pain, No Other Cardiovascular: No: Chest Pain, Palpitations, Orthopnea, Paroxysmal Noc. Dyspnea, Edema, Lt Headedness, Other Objective-Cardiology Exam Last Set of Vital Signs Vital Signs 02/21/18 02/21/18 04:04 08:28 Temp 98.6 Pulse 85 Resp 18 B/P (MAP) 148/81 (103) Pulse Ox 93 O2 Delivery Nasal Cannula O2 Flow Rate 1.00 Capillary Refill : Less Than 3 Seconds I&O Intake and Output 02/21/18 00:00 Intake Total 690 ml Output Total 4525 ml Balance -3835 ml Intake Oral 690 ml Output Urine Total 4525 ml General: Alert, Oriented X3, Cooperative HEENT: Atraumatic, PERRLA Neck: Supple, No JVD, No Thyromegaly Lungs: Clear to Auscultation, Normal Air Movement Heart: Regular Rate, Normal S1, Normal S2, No Murmurs Abdomen: Normal Bowel Sounds, Soft, No Tenderness, No Hepatosplenomegaly, No Masses, Other Extremities: No Clubbing, No Cyanosis, Normal Pulses, No Tenderness/Swelling, Other (edema) Skin: No Rashes, No Breakdown, No Significant Lesion Neuro: Normal Gait, Normal Speech, Normal Tone, Sensation Intact Psych/Mental Status: Mental Status NL, Mood NL Results Lab Laboratory Tests Test 02/20/18 11:12 02/20/18 16:09 02/20/18 18:05 02/20/18 20:03 Range/Units Glucometer 78 29 *L 91 83 70-110 MG/DL Test 02/20/18 22:25 02/21/18 00:04 02/21/18 02:13 02/21/18 04:03 Range/Units Glucometer 82 70 101 105 70-110 MG/DL Test 02/21/18 06:09 02/21/18 08:35 Range/Units Glucometer 112 H 106 70-110 MG/DL A/P-Cardiology Admission Diagnosis Generalized weakness Acute renal failure Hypoglycemia Coronary artery disease Assessment/Plan Generalized weakness and loss of energy, reporting improvement. Continue to monitor Acute on chronic renal failure, followed by Dr Donohue. having worsening edema at this time. Restart lasix IV History of seizure activity occurred during the last admission early in January 2018, workup was negative except for hypoxemia which was suspected to be the cause of her syncope and seizure activity. COPD, history of chronic hypoventilation. Managed by Dr. Andrew. History of Nonischemic cardiomyopathy, MUGA scan was done in November 2015 showing ejection fraction 55 percent, last echocardiogram in January 24, 2018 showed ejection fraction 50-55 percent, dilated left atrium, moderate MR, PA 30 mmHg. Significant improvement, no signs of heart failure. Continue to monitor Mild coronary artery disease nonobstructive disease by cardiac catheterization done in May 2014. Continue to monitor at this time. Peripheral arterial disease, history of abdominal aortogram with angiogram to the lower extremities done by Dr. Cosme, reported to good vessel runoff to the lower extremities, medical therapy was recommended, repeat Peripheral runoff showed total occlusion of the anterior tibial artery and both lower extremities with brisk flow. It was done in March 2016, patient was referred by Dr. De Leon to [facility] and had angioplasty and stent done using drug-eluting stent Promus 3.524 mm to the anterior tibial artery on the right side with good results. ulcer has healed well, received treatment for lymphedema and improved. Peripheral edema, chronic, lymphedema. Better at this time. Receiving therapy in [place], continue to monitor Hypertension, continue to monitor blood pressure Moderate bilateral carotid stenosis, ultrasound was done in October 2016. 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 History of multiple back and knee surgeries, continue to monitor History of elevated liver enzymes, followed by primary care physician Obesity, BMI is 46, patient was educated on weight loss Clinical Quality Measures DVT/VTE Risk/Contraindication: Risk Factor Score Per Nursin RFS Level Per Nursing on Admit: 3=High DEVI LONDON MD Feb 21, 2018 09:33
--- NOTE | 2018-02-21 09:56 | Physical Therapy Evaluation ---
PT Evaluation-General Medical Diagnosis Admission Date Feb 17, 2018 at 14:38 Medical Diagnosis: ARF Onset Date: Feb 17, 2018 Therapy Diagnosis Therapy Diagnosis: generalized weakness/debility Height/Weight Height (Feet): 5 Height (Inches): 4.00 Weight (Pounds): 270 Weight (Ounces): 9.0 Precautions Precautions/Isolations: Contact Isolation, Fall Prevention Weight Bear Status Right Lower Extremity: Right Full Weight Bearing Left Lower Extremity: Left Full Weight Bearing Referral Physician: Karma Reason for Referral: Evaluation/Treatment Medical History Pertinent Medical History: Arthritis, CAD, COPD, GERD, HTN, Neuropathy, Rheumatoid Arthritis Current History ED secondary to lethargy/shaking due to elevated +K Reviewed History: Yes Social History Home: Assisted Living Prior/Core FIM Prior Level of Function Therapy Code Descriptions/Definitions Functional [place] Measure: 0=Not Assessed/NA 4=Minimal Assistance 1=Total Assistance 5=Supervision or Setup 2=Maximal Assistance 6=Modified [place] 3=Moderate Assistance 7=Complete [place] Therapy Quality Codes: 6 Independent with activity with or without an assistive device 5 Patient requires set up or clean up by helper. Patient completes activity by themselves 4 Supervision or touching assist (CGA). [place] provide cues , steadying assist 3 The helper provides less than half the effort to complete the activity 2 The helper provides more than half the effort to complete the activity 1 Dependent. The helper does all the effort to complete an activity 7 Patient refused to complete or attempt activity 9 The patient did not perform the activity before the current illness or injury 88 Not attempted due to Medical conditions or safety concerns Functional Abilities and Goals: Independent: Patient completed the activities by him/herself, with or without an assistive device, with no assistance from a helper. Needed Some Help: Patient needed partial assistance from another person to complete activities. Dependent: A helper completed the activities for the patient. Unknown: Not Applicable: Bed Mobility: 6 Transfers (B,C,W/C) (FIM): 6 Gait: 6 Indoor Mobility (Ambulation): Needed Some Help Stairs: Needed Some Help Prior Devices Use: Walker PT Evaluation-Current Subjective Patient and family agree to PT. Pain Numeric Pain Scale: 0-No Pain Location: No Pain Reported Objective Patient Orientation: Normal For Age Problem Solving: Fair Attachments: Oxygen, IV ROM/Strength ROM Upper Extremities bilateral LE WFL Strength Upper Extremities 4/5 grossly bilaterally Integumentary/Posture Integumentary noted bilateral LE edema Bowel Incontinence: No Bladder Incontinence: No Posture WFL Neuromuscular (Tone, Coordination, Reflexes) grossly intact Transfers Therapy Code Descriptions/Definitions Functional [place] Measure: 0=Not Assessed/NA 4=Minimal Assistance 1=Total Assistance 5=Supervision or Setup 2=Maximal Assistance 6=Modified [place] 3=Moderate Assistance 7=Complete [place] Transfers (B, C, W/C) (FIM): 6 Scootin Rollin Supine to/from Sit: 6 Sit to/from Stand: 6 Gait Mode of Locomotion: Walk Anticipated Mode of Locomotion: Walk Gait (FIM): 1 Distance (FIM): 1=up to 49 ft Distance: 25' Gait Level of Assist: 6 Gait Assistive Device: FWW Comments/Gait Description functional gait sequence Balance Sitting Static: Normal Sitting Dynamic: Normal Standing Static: Normal Standing Dynamic: Normal Assessment/Needs 72 y.o. female, will be seen short term by skilled PT to address functional strength and mobility to improve current LOF and to safely return to [place] at maximum LOF. Rehab Potential: Poor PT Usp Goals Usp Goals PT On Call Goals Time Frame: Mar 04, 2018 Transfers (B,C,W/C) (FIM): 6 Gait (FIM): 6 Gait distance (FIM): 3=150 ft Distance: 150' Gait Level of Assist: 6 Gait Assistive Device: FWW PT Plan Problem List Problem List: Activity Tolerance Treatment/Plan Treatment Plan: Continue Plan of Care Treatment Plan: Bed Mobility, Education, Functional Activity [place], Functional Strength, Gait, Safety, Therapeutic Exercise, Transfers Treatment Duration: Mar 04, 2018 Frequency: 6 times per week Estimated Hrs Per Day: .25 hour per day Patient and/or Family Agrees t: Yes Discharge Recommendations Therapy D/C Recommendations: Assisted Living, Physical Therapy Home Care Time/GCodes Time In: 914 Time Out: 930 Total Billed Treatment Time: 16 Total Billed Treatment 1 visit EVMod 16 min GARO NICK PT Feb 21, 2018 09:55
--- NOTE | 2018-02-21 10:59 | NUR ---
DISCHARGE PLANNING: This RN went to patient room to discuss plans for discharge today. Daughter- in-law in the room with patient and reports that doctor has no yet seen her today and that she has lots of questions regarding Fridays discussion with patient's son Herman regarding possible SNF placement and or Hospice care. I did take the opportunity for Hospice education and spoke highly of the benefits over the end. Brochures given for the Hospices in the area. Doctor aware of the above conversation and that the patients DIL has questions.
[2018-02-21 12:00] VITALS: BP 127/61
--- NOTE | 2018-02-21 12:03 | D/C HH Face to Face Order ---
D/C Face to Face Orders Instructions for Patient [facility], Patient Instructions/FollowUp: Dr Parada in 1 week Physician to follow Patient: Dr Clare Parada Discharge Diet for Home: No Restrictions Patient Problems: Hypoglycemia Obesity hypoventilation syndrome Obesity CHF Goals for Patient: Return to baseline ADL's Patient Data-Allergies,Ht & Wt Patient Allergies: Coded Allergies: NSAIDS (Non-Steroidal Anti-Inflamma (Unverified Allergy, Mild, 03/18/09) Penicillins (Verified Allergy, Unknown, 01/03/06) Sulfa (Sulfonamide Antibiotics) (Verified Allergy, Unknown, 01/03/06) aspirin (Verified Allergy, Unknown, 01/03/06) carbamazepine (Verified Allergy, Unknown, 09/20/06) cephalexin (Verified Allergy, Unknown, 01/03/06) iodine (Verified Allergy, Unknown, 01/03/06) latex (Unverified Allergy, Unknown, 06/21/13) Height (Feet): 5 Height (Inches): 4.00 Weight (Pounds): 270 Weight (Ounces): 9.0 Home Health Need/Face to Face Date of Face to Face: Feb 21, 2018 Clinical Findings: Generalized weakness and fatigue, Shortness of breath I have seen Pt [id number]: Yes Discharged To: Home Diagnosis/Conditions: Hypoglycemia Obesity hypoventilation syndrome Obesity CHF Patient is Homebound due to: Shortness of breath/distress Homebound Status Due to the above stated illness, injury or surgical procedure (medical condition or diagnosis) and associated clinical findings, the patient is homebound because of his/her inability to leave home except with aid of a supportive device and/or person AND leaving the home requires a considerable and taxing effort or is medically contraindicated. Pt req the following assistanc: Walker Home Health Nursing Orders Home Health Services Order: Nursing Services, Clinical Laboratory Technologist-Evaluate & Treat, Physical Therapy-Evaluate & Treat Home Health [facility]fusion [facility] Location: Chest Certify Stmt I certify that this patient is under my care and that I, a nurse practitioner or a physician; a radiology assistant working with me, had a face to face encounter that - meets the physician face to face encounter requirements with this patient as dated. CLARE PRAADA DO Feb 21, 2018 12:02
--- NOTE | 2018-02-21 12:07 | Discharge Summary-Hospitalist ---
Diagnosis/Chief Complaint Date of Admission Feb 17, 2018 at 14:38 Date of Discharge Discharge Date: Feb 21, 2018 Admission Diagnosis Assessment: Altered mental status Acute renal failure Hypercapnia CHF VALDO Obesity hypoventilation syndrome Chronic renal insufficiency Chronic lymphedema Recurrent UTI Crest syndrome Hypertension History of breast cancer Plan: Close monitoring IV fluid Cardiology and pulmonology consultations are appreciated Discharge Diagnosis (1) Hypoglycemia Status: Acute (2) Altered mental status Status: Resolved (3) Obesity hypoventilation syndrome Status: Chronic (4) VALDO on CPAP Status: Resolved (5) Severe pain Status: Chronic (6) Posterior reversible encephalopathy syndrome (PRES) Status: Chronic (7) Essential (primary) hypertension Status: Chronic (8) LEIGHANN (acute kidney injury) Status: Resolved (9) Lymphedema Status: Chronic (10) CHF (congestive heart failure) Status: Chronic (11) Hyperkalemia Status: Resolved Discharge Summary Discharge Physical Exam Allergies: Coded Allergies: NSAIDS (Non-Steroidal Anti-Inflamma (Unverified Allergy, Mild, 03/18/09) Penicillins (Verified Allergy, Unknown, 01/03/06) Sulfa (Sulfonamide Antibiotics) (Verified Allergy, Unknown, 01/03/06) aspirin (Verified Allergy, Unknown, 01/03/06) carbamazepine (Verified Allergy, Unknown, 09/20/06) cephalexin (Verified Allergy, Unknown, 01/03/06) iodine (Verified Allergy, Unknown, 01/03/06) latex (Unverified Allergy, Unknown, 06/21/13) Vitals & I&Os Vital Signs Date Time Temp Pulse Resp B/P (MAP) Pulse Ox O2 Delivery O2 Flow Rate FiO2 02/21/18 08:28 Nasal Cannula 1.00 02/21/18 08:28 93 02/21/18 08:00 98.2 77 20 134/63 (86) General Appearance: No Apparent Distress, WD/WN, Chronically ill Respiratory: Chest Non Tender, Lungs Clear, Normal Breath Sounds, No Accessory Muscle Use, No Respiratory Distress Cardiovascular: Regular Rate, Rhythm, No Edema, No Gallop, No JVD, No Murmur, Normal Peripheral Pulses Neurologic/Psychiatric: Alert, Oriented x3, No Motor/Sensory Deficits, Normal Mood/Affect Hospital Course Hospital course: patient had a lengthy hospital course after admitted from ER for AMS. Pt was found to have hypercapnia and acute renal failure with creatinine of 2.2. Patient placed on IV fluids along with oxygen supplementation and patient rapidly improved but drowsiness continued. Hyperglycemia noted requiring D10 and amps of D50 for unknown source so CT scan was obtained showing no pancreatic mass to suggest an insulinoma but C-peptide and insulin level was obtained during the workup process. Patient was improved enough to return to [facility] for physical therapy on home health with nursing and physical therapy and I did have a almas discussion regarding DO NOT RESUSCITATE status and the possibility of anoxic brain injury if obesity hypoventilation syndrome worsened and was found down for an undetermined amount of time and she will talk to her family about that possibility. We will continue home health optimize her on that level and if patient declines will review hospice enrollment. Labs (last 24 hrs) Laboratory Tests 02/20/18 16:09: Glucometer 29*L 02/20/18 18:05: Glucometer 91 02/20/18 20:03: Glucometer 83 02/20/18 22:25: Glucometer 82 02/21/18 00:04: Glucometer 70 02/21/18 02:13: Glucometer 101 02/21/18 04:03: Glucometer 105 02/21/18 06:09: Glucometer 112H 02/21/18 08:35: Glucometer 106 02/21/18 10:22: Glucometer 155H Patient resulted labs reviewed. Pending Labs Laboratory Tests 02/21/18 06:09: Glucometer 112 02/21/18 08:35: Glucometer 106 02/21/18 10:22: Glucometer 155 Discussion & Recommendations Discharge Planning: <30 minutes discharge planning Discharge Home Medications: Active Scripts Active Reported Topamax (Topiramate) 25 Mg Tablet 25 Mg PO HS Iprat-Albut 0.5-3(2.5) mg/3 ml (Ipratropium/Albuterol Sulfate) 3 Ml Ampul.neb 3 Ml NEB TID Ferrous Sulfate 325 Mg Tablet 325 Mg PO DAILY Ipratropium [place] 0.2 Mg/1 Ml Solution 0.2 Mg NEB TID PRN Guaifenesin AC Cough Syrup (Guaifenesin/Codeine Phosphate) 473 Ml Liquid 5 Ml PO Q6H PRN Oxycodone HCl 20 Mg Tablet 20 Mg PO 0000,0800,1600 Cranberry (Cranberry Fruit) 400 Mg Tablet 400 Mg PO BID Allopurinol 100 Mg Tablet 100 Mg PO DAILY Vitamin C (Ascorbate Calcium) 500 Mg Tablet 500 Mg PO DAILY Detrol LA (Tolterodine Tartrate) 4 Mg Cap 4 Mg PO DAILY Macrodantin (Nitrofurantoin Macrocrystal) 100 Mg Capsule 100 Mg PO 1700 Bumetanide 1 Mg Tablet 1 Mg PO DAILY Guaifenesin Dm Syrup (Guaifenesin/Dextromethorphan) 5 Ml Syrup 5 Ml PO Q6H PRN Calmoseptine Ointment (Menthol/Lanolin/Calamine/Znox) 71 Gm Oint TP UD PRN APPLY TO [place]ARETT AREA Locoid (Hydrocortisone Butyrate) 15 Gm Cream..g. TP BID PRN Vitamin A & D Ointment (Vitamin A & D) 60 Gm Oint TP DAILY PRN APPLY TO BLE & FEET Oxycodone HCl 20 Mg Tablet 20 Mg PO Q6H PRN Simvastatin 20 Mg Tablet 20 Mg PO HS Plavix (Clopidogrel Bisulfate) 75 Mg Tablet 75 Mg PO DAILY Allergy Relief (Cetirizine HCl) 10 Mg Tablet 10 Mg PO DAILY Carvedilol 12.5 Mg Tablet 12.5 Mg PO BID Enalapril Maleate 5 Mg Tablet 2.5 Mg PO DAILY TAKES 1/2 (5MG) TABLET Duloxetine HCl 60 Mg Capsule.dr 60 Mg PO DAILY Hydroxychloroquine Sulfate 200 Mg Tablet 200 Mg PO 1200,1700 Gabapentin 300 Mg Capsule 300 Mg PO HS Nexium (Esomeprazole Magnesium) 40 Mg Cap 40 Mg PO HS Advair 250-50 Diskus (Fluticasone/Salmeterol) 1 Each Blst.w.dev 1 Puff IH BID Fluticasone Propionate 16 Gm [place].susp 1 [place] NS DAILY PRN Vitamin D-3 (Cholecalciferol (Vitamin D3)) 2,000 Unit Capsule 2,000 Unit PO HS Potassium Chloride 10 Meq Capsule.er 20 Meq PO 1200,1700 TAKES 2 (10MEQ) CAPSULES Instructions to patient/family Please see electronic discharge instructions given to patient. Clinical Quality Measures DVT/VTE Risk/Contraindication: Risk Factor Score Per Nursin RFS Level Per Nursing on Admit: 3=High Problem Qualifiers (1) Altered mental status: Altered mental status type: unspecified Qualified Codes: R41.82 - Altered mental status, unspecified (2) CHF (congestive heart failure): Heart failure type: unspecified Heart failure chronicity: acute on chronic Qualified Codes: I50.9 - Heart failure, unspecified SIENNA MADERA DO Feb 21, 2018 12:07
[2018-02-21] MEDS: HYDROXYCHLOROQUINE 200 MG (PLAQUENIL) TAB PO SCH (12:12)
--- NOTE | 2018-02-21 12:12 | NUR ---
PALLIATIVE CARE RN in to see the patient and do follow-up hospice education with family, son and [id number]. Ultimately ended with the decision to return to previous placement at [facility] with [facility] through [facility] for PT/OT. They will use this time with [facility] to investigate hospice choices and then at next appointment with Dr. Parada talk about the hospice benefit.
--- NOTE | 2018-02-21 15:02 | NUR ---
THIS RN CALLED TO [facility] TO GIVE REPORT AT THIS TIME. THIS RN SPOKE WITH TANJA ESCOBAR WHO WILL ASSUME CARE OF THIS PATIENT WHEN SHE RETURNS TO THIS FACILITY. SHE WAS INFORMED THAT THE PATIENT WOULD NEED A ONE WEEK FOLLOW-UP WITH DR. AMBROSE OFFICE. THIS RN ALSO REPORTED HER LAST FINGER STICK WHICH WAS 172. THIS RN WILL CONT TO MONITOR THIS PATIENT UNTIL DISCHARGE FROM [facility].
[2018-02-21 15:04] VITALS: BP 127/61
--- NOTE | 2018-02-21 16:15 | NUR ---
OXYCODONE NOT GIVE THE PATIENT WANTED TO LEAVE
== END 2018-02-21 16:15 | disposition home health service (06) | DRG 682 ==
LOC: EDUNIT# 12:39 → ER 12:43 → ICU 14:38 → 4TH 02-18 10:20
PROVIDERS: ADMIT Internal Medicine; ATTEND Internal Medicine
DX: N17.9 Acute kidney failure, unspecified (principal); E16.2 Hypoglycemia, unspecified; G93.41 Metabolic encephalopathy; E66.2 Morbid (severe) obesity with alveolar hypoventilation; Z68.42 Body mass index [BMI] 45.0-49.9, adult; I13.0 Hypertensive heart and chronic kidney disease with heart failure and stage 1 through stage 4 chronic kidney disease, or unspecified chronic kidney disease; N18.9 Chronic kidney disease, unspecified; I67.83 Posterior reversible encephalopathy syndrome; I42.9 Cardiomyopathy, unspecified; I50.9 Heart failure, unspecified; E87.5 Hyperkalemia; J44.9 Chronic obstructive pulmonary disease, unspecified; R06.89 Other abnormalities of breathing; G62.9 Polyneuropathy, unspecified; I65.23 Occlusion and stenosis of bilateral carotid arteries; E78.00 Pure hypercholesterolemia, unspecified; M19.91 Primary osteoarthritis, unspecified site; M06.9 Rheumatoid arthritis, unspecified; G40.909 Epilepsy, unspecified, not intractable, without status epilepticus; E89.0 Postprocedural hypothyroidism; F41.9 Anxiety disorder, unspecified; F32.9 Major depressive disorder, single episode, unspecified; Z98.1 Arthrodesis status; Z85.3 Personal history of malignant neoplasm of breast; Z86.14 Personal history of Methicillin resistant Staphylococcus aureus infection; Z87.891 Personal history of nicotine dependence; Z88.0 Allergy status to penicillin; Z88.1 Allergy status to other antibiotic agents; Z88.2 Allergy status to sulfonamides; Z88.8 Allergy status to other drugs, medicaments and biological substances
CPT/HCPCS: 36415; 51701; 71045; 74177; 80053; 81000; 82140; 82805; 82962; 83036; 83525; 83880; 84484; 84681; 85025; 90471; 93005; 94640; 96361; 96374; 96375

== ENCOUNTER 2018-12-07 12:35 | Outpatient (CLI) | payer MEDICARE, OTHER ==
[~2018-12-07] VITALS: Ht 165.1 cm; Wt 115.9 kg
[~2018-12-07 12:35] MED LIST changes: -BUME1TAB4 PO; +BUME1TAB8 PO; -BUME2TAB3 PO; +BUME2TAB7 PO; -CETI-214 PO; +CETI-458 PO; +DULO60CA59 PO; +TPR25T PO
[2018-12-07 12:47] VITALS: BP 133/50
[2018-12-07] MEDS ORDERED: ENAL2.5T PO (14:12)
== END 2018-12-07 13:05 | disposition home or self-care (01) ==
LOC: PREOP 12:35
PROVIDERS: ATTEND Orthopaedic Surgery
DX: Z01.818 Encounter for other preprocedural examination (principal)
CPT/HCPCS: 87081

== ENCOUNTER 2018-12-21 10:00 | Inpatient (IN) | payer MEDICARE, OTHER ==
[~2018-12-21] VITALS: Ht 162.6 cm; Wt 115.6 kg
[~2018-12-21 10:00] MED LIST changes: +ENAL2.5T PO; +FLUT15.845 NS; -FLUT15.88 NS; +SIMV20TA26 PO; -SIMV20TA3 PO
[2018-12-21] MEDS ORDERED: diphenhydrAMINE 25 MG TAB (BENADRYL) PO PRN (10:15)
[2018-12-21] MEDS ORDERED: LOPERAMIDE 2 MG (IMODIUM) TABLET PO PRN (10:15)
[2018-12-21] MEDS ORDERED: PHARMACY TO DOSE IV SCH (10:15)
[2018-12-21] MEDS ORDERED: CALCIUM CARBONATE 500 MG (TUMS) TAB.CHEW PO PRN (10:15)
[2018-12-21] MEDS ORDERED: DOCUSATE SODIUM 100 MG (COLACE) CAP PO PRN (10:15)
[2018-12-21] MEDS ORDERED: NS IV 1000 ML 1,000 ML IV SCH (10:15)
[2018-12-21] MEDS ORDERED: guaiFENesin/CODEINE (ROBITUSSIN AC) 10ML UDC PO PRN (10:15)
[2018-12-21] MEDS ORDERED: ACETAMINOPHEN 500 MG TAB (TYLENOL) PO PRN (10:15)
[2018-12-21] MEDS ORDERED: HYDROcodone/APAP 5 MG/325 MG (LORTAB) TAB PO PRN (10:15)
[2018-12-21] MEDS ORDERED: ALPRAZolam 0.25 MG (XANAX) TAB PO PRN (10:15)
--- NOTE | 2018-12-21 10:30 | NUR ---
CHRISTOPHESHANNAN R admitted to room 423-1, with an admitting diagnosis of PNEUMONIA, on 12/21/18 from ER via W/C, accompanied by STAFF.SHANNAN SAEED introduced to surroundings, call light, bed controls, phone, TV, temperature control, lights, meal times, smoking policy, visitor policy, side rail policy, bathrooms and showers. Patient Rights given to patient in the handbook. SHANNAN SAEED verbalizes understanding that [facility] is not responsible for the loss or damage to any personal effects or valuables that are kept in the patients posession during their hospitalization. The following Patient Care Plans were discussed with the PT: Discharge Planning, PAIN CONTROL,IV THERAPY, and TEST AND PROCEDURES. SHANNAN SAEED verbalizes understanding of Interdisciplinary Patient Education. Patient and/or family were informed about the Rapid Response Team and its purpose.
[2018-12-21] MEDS ORDERED: RT-ALBUTEROL SULF 2.5 MG/3 ML PRE-MIX VIAL ONE (11:11)
--- NOTE | 2018-12-21 11:17 | Diagnostic Imaging Report ---
INDICATION: Wheezing. TIME OF EXAM: 11:04 AM COMPARISON: Correlation is made with prior chest from 02/17/2018. FINDINGS: Right chest wall port has the tip overlying the SVC right atrial junction. There are some mild basilar densities noted. Mid and upper lung ceron are clear. The pulmonary vascularity is unremarkable. No effusion or pneumothorax is seen. Spinal instrumentation in the lower thoracic and lumbar spine is noted. IMPRESSION: Bibasilar linear parenchymal densities which may reflect some scarring or atelectasis. Minimal infiltrate cannot be entirely excluded. Remainder of the study is unremarkable. Dictated by: Dictated on workstation # [id number]
[2018-12-21 11:26] LABS: BASOPHILS % (AUTO) 1 % (0-10); EOSINOPHILS # (AUTO) 0.4 10^3/uL (0.0-0.3); EOSINOPHILS % (AUTO) 5 % (0-10); HEMATOCRIT 40 % (35-52); HEMOGLOBIN 13.3 G/DL (11.5-16.0); LYMPHOCYTES # (AUTO) 1.8 X 10^3 (1.0-4.0); LYMPHOCYTES % (AUTO) 21 % (12-44); MEAN CORPUSCULAR HEMOGLOBIN 32 PG (25-34); MEAN CORPUSCULAR HGB CONC 33 G/DL (32-36); MEAN CORPUSCULAR VOLUME 96 FL (80-99); MEAN PLATELET VOLUME 10.5 FL (7.4-10.4); MONOCYTES # (AUTO) 0.9 X 10^3 (0.0-1.0); MONOCYTES % (AUTO) 11 % (0-12); NEUTROPHILS # (AUTO) 5.2 X 10^3 (1.8-7.8); NEUTROPHILS % (AUTO) 63 % (42-75); PLATELET COUNT 178 10^3/uL (130-400); RED CELL DISTRIBUTION WIDTH 13.6 % (10.0-14.5); WHITE BLOOD COUNT 8.3 10^3/uL (4.3-11.0)
[2018-12-21] MEDS ORDERED: VANCOMYCIN INJECTION 2,250 MG in NS IV 500 ML 500 ML IV NR (11:30)
--- NOTE | 2018-12-21 11:37 | History & Physical-Hospitalist ---
DEMOND SUMNER MED STUDENT 12/21/18 1137: History of Present Illness HPI/Chief Complaint Ms. Shetty is in the office today due to pneumonia. PMH significant for COPD, CHF, lymphedema, DM2. Vitals are HR 66, RR 20, BP 131/60. She has been experiencing congestion, cough, SOB, and fatigue for the past week. She saw Dr. Madera today in the [facility] where she lives, who directly admitted her to med-surg. When seen today, she reported she has continued to have the cough, congestion, SOB, and fatigue. Cough syrup helped her symptoms some but her cough and SOB continued to worsen. She also reports having sinus headaches and constipation recently. Labs show RBC 4.8, Eos# 0.4. ABG shows pH 7.48, CO2 40, O2 61. Chemistry shows potassium 3.4, creatinine .83, total protein 6. UA shows 2+ leukocyte esterase, 10-25 WBC, culture pending. CXR shows bibasilar linear parenchymal densities which may reflect some scarring or atelectasis, minimal infiltrate cannot be entirely excluded. EKG shows 1st degree AV block. Source: patient Exam Limitations: no limitations Date Seen 12/21/18 Time Seen by a Provider: 11:00 Attending Physician Clare Madera DO PCP Clare Madera DO Referring Physician Date of Admission Dec 21, 2018 at 10:39 Home Medications & Allergies Home Medications Reviewed patient Home Medication Reconciliation performed by pharmacy medication reconciliations computer operations technician and/or nursing. Patients Allergies have been reviewed. Allergies Allergies Coded Allergies NSAIDS (Non-Steroidal Anti-Inflamma (Unverified Allergy, Mild, 03/18/09) Influenza Virus Vaccines (Verified Allergy, Unknown, 12/07/18) Penicillins (Verified Allergy, Unknown, 01/03/06) Sulfa (Sulfonamide Antibiotics) (Verified Allergy, Unknown, 01/03/06) aspirin (Verified Allergy, Unknown, 01/03/06) atorvastatin (Verified Allergy, Unknown, 12/07/18) carbamazepine (Verified Allergy, Unknown, 09/20/06) cephalexin (Verified Allergy, Unknown, 01/03/06) iodine (Verified Allergy, Unknown, 01/03/06) latex (Unverified Allergy, Unknown, 06/21/13) meloxicam (Verified Allergy, Unknown, 12/07/18) peanut (Verified Allergy, Unknown, 12/07/18) Past Hgdcqnx-Ivcxri-Bccbmm Hx Patient Social History 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[employer]) Alcohol Use: Denies Use Recreational Drug Use: No Smoking Status: Former Smoker (2 ppd for 20 years) Former Smoker, Quit: Mar 25, 1994 Type Used: Cigarettes 2nd Hand Smoke Exposure: No Recent Hopitalizations: No Immunizations Up To Date Tetanus Booster (TDap): Unknown Pediatric: No Date of Pneumonia Vaccine: Sep 22, 2013 Date of Influenza Vaccine: Nov 22, 2017 Seasonal Allergies Seasonal Allergies: No Past Medical History Surgeries: Adenoidectomy, Appendectomy, Hysterectomy, Lumpectomy, Orthopedic, Tonsillectomy, Tubal Ligation Respiratory: COPD, Pneumonia, Sleep Apnea Currently Using CPAP: No Cardiac: Chronic Edema/Swelling, High Cholesterol, Hypertension Neurological: Neuropathy Reproductive: No Sexually Transmitted Disease: No HIV/AIDS: No Female Reproductive Disorders: Denies Genitourinary: Renal Failure Gastrointestinal: Gastroesophageal Reflux, Gall Bladder Disease Musculoskeletal: Degenerate Disk Disease, Arthritis, Rheumatoid Arthritis, Chronic Back Pain Loss of Vision: Bilateral Hearing Impairment: Denies Cancer: Breast Did You Recieve Any Treatments: No What Type of Treatment Did You: Surgical Intervention Psychosocial: Anxiety, Depression History of Blood Disorders: Yes (IMMUNOGLOBULIN DEFICIENCY) Adverse Reaction to Blood Burrell: No Family History Cancer G8 SISTER Congestive heart failure 19 FATHER Family history: Cardiovascular disease 19 FATHER 19 MOTHER G8 BROTHER Family history: Coronary thrombosis 19 FATHER 19 MOTHER Family history: Hypertension 19 MOTHER Stroke 19 MOTHER G8 BROTHER No Pertinent Family Hx Review of Systems Constitutional: No dizziness; malaise EENTM: nose congestion; No throat pain Respiratory: cough, short of breath Cardiovascular: No chest pain; edema; No palpitations Gastrointestinal: No abdominal pain; constipation; No diarrhea; loss of appetite; No nausea Genitourinary: No dysuria, No frequency Psychiatric/Neurological: Headache (sinuses); Denies Numbness, Denies Paresthesia Physical Exam Physical Exam Vital Signs Vital Signs - First Documented 12/21/18 12/21/18 12/21/18 12/21/18 11:05 11:34 11:35 13:20 Temp 36.6 Pulse 66 Resp 20 B/P (MAP) 131/60 Pulse Ox 97 O2 Delivery Nasal Cannula O2 Flow Rate 2.00 FiO2 28 Capillary Refill : Height, Weight, BMI Height: 5'4.00" Weight: 270lbs. 9.0oz. 122.410508cv; 43.72 BMI Method:Stated General Appearance: Mild Distress, Obese Neck: No Lymphadenopathy (L), No Lymphadenopathy (R); Tender Lateral (right side near level of thyroid, no erythema, mass or lump on palpation) Respiratory: Crackles, Expiration Cardiovascular: Regular Rate, Rhythm, No Gallop, No Murmur, Normal Peripheral Pulses Gastrointestinal: Normal Bowel Sounds, Soft; No Splenomegaly; Other (discomfort palpating LUQ, no pain, no mass noted) Extremity: No Calf Tenderness, Pedal Edema, Slow Capillary Refill Neurologic/Psychiatric: Alert, Oriented x3, Normal Mood/Affect Skin: No Normal Color; Cyanosis (finertips), Other (bilateral LE lymphedema dermatitis) Results Results/Procedures Labs Laboratory Tests 12/21/18 11:10 Patient resulted labs reviewed. Assessment/Plan Admission Diagnosis Assessment: 1. Pneumonia 2. Hypokalemia 3. Abnormal UA 4. Abnormal CXR 5. COPD 6. CHF 7. DM2 Plan: 1. Continue meropenem, vancomycin 2. Continue 2 L O2 per nasal cannula, nebulizer treatment 3. Await results of CT, UA, sputum culture 4. Continue home medications for chronic conditions 5. Continue DVT prophylaxis CLARE MADERA DO 12/21/18 1700: History of Present Illness HPI/Chief Complaint CC: Wheezing HPI: This is a 73[facility]WF clinic pt of [facility] who resides at [facility] who presented to the hospital for failed antibiotic treatment and presumed pneumonia with wheezing and respiratory insufficiency after she failed Cefdinir antibiotic breathing treatments and antitussives at home. She has been requiring oxygen 24/ of which she doesn't usually use except for at night because she can't tolerate CPAP. She at this current time was unable to get up and around to shower because she just doesn't feel like it. Her lungs are wheezing B/L and pt is high risk for respiratory insufficiency. I did update Dr. Andrew and Dr. Carbajal of theadmission status. 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) Alcohol Use: Denies Use Smoking Status: Former Smoker (2 ppd for 20 years) Past Medical History Respiratory: COPD, Pneumonia, Sleep Apnea Family History Cancer G8 SISTER Congestive heart failure 19 FATHER Family history: Cardiovascular disease 19 FATHER 19 MOTHER G8 BROTHER Family history: Coronary thrombosis 19 FATHER 19 MOTHER Family history: Hypertension 19 MOTHER Stroke 19 MOTHER G8 BROTHER Review of Systems Constitutional: see HPI, fever, weakness Respiratory: cough, dyspnea on exertion Physical Exam Physical Exam General Appearance: WD/WN, Chronically ill, Mild Distress, Obese Respiratory: Crackles, Decreased Breath Sounds, Expiration, Rales, Wheezing Cardiovascular: Regular Rate, Rhythm Assessment/Plan Admission Diagnosis Assessment: AECOPD with presumed pneumonia on CXR failed PO abx outpatient h/o ESBL UTI placed on Abdifatah and Vanc empirically Severe OHA previously near hospice candidacy Admission Status: Inpatient Order (span 2 midnights) Reason for Inpatient Admission: Failed outpatient abx Diagnosis/Problems Diagnosis/Problems (1) Pneumonia (2) Wheezing Status: Acute (3) Hypoxia Status: Acute (4) COPD exacerbation Status: Resolved (5) CHF (congestive heart failure) Status: Chronic (6) Lymphedema Status: Chronic (7) Essential (primary) hypertension Status: Chronic (8) Obesity hypoventilation syndrome Status: Chronic (9) Severe pain Status: Chronic (10) LEIGHANN (acute kidney injury) Status: Resolved Resolution Date/Time: 02/20/18 @ 18:58 (11) VALDO on CPAP Status: Resolved Resolution Date/Time: 02/20/18 @ 18:58 Supervisory-Addendum Brief Verification & Attestation Participated in pt care: history, MDM, physical Personally performed: exam, history, MDM, supervision of care Care discussed with: Medical Student Procedures: n/a Results interpretation: Verified all documentation Verification and Attestation of Medical Student E/M Service A medical student performed and documented this service in my presence. I reviewed and verified all information documented by the medical student and made modifications to such information, when appropriate. I personally performed the physical exam and medical decision making. Clare Madera, Dec 21, 2018,17:00 DEMOND SUMNER MED STUDENT Dec 21, 2018 11:37 CLARE CHADWICK DO Dec 21, 2018 17:00 POS
[2018-12-21 11:38] LABS: PROTHROMBIN TIME PATIENT 13.3 SEC (12.2-14.7)
[2018-12-21 11:38] LABS: ABG BASE EXCESS 5.6 MMOL/L (-2.5-2.5); ABG OXYGEN SATURATION 96 % (94-100); ABG PCO2 40 MMHG (35-45); ABG PH 7.48 (7.37-7.43); ABG PO2 61 MMHG (79-93); ABG TCO2 30.6 MMOL/L (21.0-31.0)
[2018-12-21 11:40] LABS: ALLENS TEST POSITIVE; INSPIRED O2 2 L; PATIENT TEMP 36.6; VENTILATOR NO
[2018-12-21 11:44] LABS: ALANINE AMINOTRANSFERASE 9 U/L (0-55); ALBUMIN 3.6 GM/DL (3.2-4.5); ALKALINE PHOSPHATASE 78 U/L (40-136); BILIRUBIN,TOTAL 0.9 MG/DL (0.1-1.0); BUN/CREATININE RATIO 10; CALCIUM 9.2 MG/DL (8.5-10.1); CARBON DIOXIDE 31 MMOL/L (21-32); CHLORIDE 103 MMOL/L (98-107); CREATININE SERUM 0.83 MG/DL (0.60-1.30); GFR ESTIMATED > 60; GLUCOSE 98 MG/DL (70-105); POTASSIUM 3.4 MMOL/L (3.6-5.0); SODIUM 142 MMOL/L (135-145)
[2018-12-21] MEDS ORDERED: RT-ALBUTEROL SULF 2.5 MG/3 ML PRE-MIX VIAL INH PRN (11:45)
--- NOTE | 2018-12-21 11:55 | Pulmonary Consultation ---
History of Present Illness History of Present Illness Date of Consultation 12/21/18 11:55 Time Seen by Provider: 09:53 Date of Admission History of Present Illness 73yo with hx of COPD, asthma, presented as direct admit secondary to worsening SOB, cough. Has been treated as out pt for pneumonia however without improvement. Symptoms have been progressive over the last 4 days. Pt is very wheezy and SOB is worse with exertion. She has had multiple hospitalizations for similar symptoms. I am consulted for pulmonary management. Allergies and Home Medications Allergies Coded Allergies: NSAIDS (Non-Steroidal Anti-Inflamma (Unverified Allergy, Mild, 03/18/09) Influenza Virus Vaccines (Verified Allergy, Unknown, 12/07/18) Penicillins (Verified Allergy, Unknown, 01/03/06) Sulfa (Sulfonamide Antibiotics) (Verified Allergy, Unknown, 01/03/06) aspirin (Verified Allergy, Unknown, 01/03/06) atorvastatin (Verified Allergy, Unknown, 12/07/18) carbamazepine (Verified Allergy, Unknown, 09/20/06) cephalexin (Verified Allergy, Unknown, 01/03/06) iodine (Verified Allergy, Unknown, 01/03/06) latex (Unverified Allergy, Unknown, 06/21/13) meloxicam (Verified Allergy, Unknown, 12/07/18) peanut (Verified Allergy, Unknown, 12/07/18) Home Medications Allopurinol 100 Mg Tablet, 100 MG PO DAILY, (Reported) Ascorbate Calcium 500 Mg Tablet, 500 MG PO DAILY, (Reported) Bumetanide 2 Mg Tablet, 2 MG PO DAILY, (Reported) Bumetanide 2 Mg Tablet, 2 MG PO DAILY PRN for WEIGHT GAIN >5LBS/DAY, (Reported) Carvedilol 12.5 Mg Tablet, 12.5 MG PO BID, (Reported) Cetirizine HCl 10 Mg Tablet, 10 MG PO DAILY, (Reported) Cholecalciferol (Vitamin D3) 2,000 Unit Capsule, 2,000 UNIT PO HS, (Reported) Clopidogrel Bisulfate 75 Mg Tablet, 75 MG PO DAILY, (Reported) Cranberry Fruit 400 Mg Tablet, 400 MG PO BID, (Reported) Duloxetine HCl 60 Mg Capsule.dr, 60 MG PO DAILY, (Reported) Enalapril Maleate 2.5 Mg Tablet, 2.5 MG PO DAILY, (Reported) Esomeprazole Magnesium 40 Mg Cap, 40 MG PO HS, (Reported) Ferrous Sulfate 325 Mg Tablet, 325 MG PO DAILY, (Reported) Fluticasone Propionate 16 Gm Garfield.susp, 1 SPRAY NS DAILY PRN for ALLERGIES, ( Reported) Fluticasone/Salmeterol 1 Each Blst.w.dev, 1 PUFF IH DAILY, (Reported) Gabapentin 300 Mg Capsule, 300 MG PO HS, (Reported) Guaifenesin/Codeine Phosphate 473 Ml Liquid, 5 ML PO Q6H PRN for COUGH, (Reported) Guaifenesin/Dextromethorphan 5 Ml Syrup, 5 ML PO Q6H PRN for COUGH, (Reported) Hydrocortisone Butyrate 15 Gm Cream..g., TP BID PRN for INFLAMMATION, (Reported) Hydroxychloroquine Sulfate 200 Mg Tablet, 200 MG PO 1200,1700, (Reported) Ipratropium [place] 0.2 Mg/1 Ml Solution, 0.2 MG NEB TID PRN for SHORTNESS OF BREATH, (Reported) Ipratropium/Albuterol Sulfate 3 Ml Ampul.neb, 3 ML NEB 0800,1600, (Reported) Menthol/Lanolin/Calamine/Znox 71 Gm Oint, TP UD PRN for IRRITATION, (Reported) APPLY TO JARETT AREA Nitrofurantoin Macrocrystal 100 Mg Capsule, 100 MG PO 1700, (Reported) Oxycodone HCl 20 Mg Tablet, 20 MG PO Q6H PRN for PAIN-SEVERE, (Reported) Oxycodone HCl 20 Mg Tablet, 20 MG PO 0600,1400,2200, (Reported) Potassium Chloride 10 Meq Capsule.er, 20 MEQ PO 1200,1700, (Reported) TAKES 2 (10MEQ) CAPSULES Simvastatin 20 Mg Tablet, 20 MG PO HS, (Reported) Tolterodine Tartrate 4 Mg Cap, 4 MG PO DAILY, (Reported) Topiramate 25 Mg Tablet, 25 MG PO HS, (Reported) Triamcinolone Acet 15 Gm Cr, TP BID PRN for EYE REDNESS, (Reported) APPLY TO LEFT LEG Vitamin A & D 60 Gm Oint, TP DAILY PRN, (Reported) APPLY TO BLE & FEET Past Ggydbsx-Pivioe-Hsiudz Hx Patient Social History Type Used: Cigarettes Former Smoker, Quit: Mar 25, 1994 2nd Hand Smoke Exposure: No Recent Hopitalizations: No Immunizations Up To Date Tetanus Booster (TDap): Unknown PED Vaccines UTD: No Date of Pneumonia Vaccine: Sep 22, 2013 Date of Influenza Vaccine: Nov 22, 2017 Seasonal Allergies Seasonal Allergies: No Past Medical History Surgeries: Yes (MULT KNEE, BACK FUSION, NASAL SURGERY, ROTATOR CUFF REPAIR, RT BREAST L) Adenoidectomy, Appendectomy, Hysterectomy, Lumpectomy, Orthopedic, Tonsillectomy, Tubal Ligation Respiratory: Yes (pulmoanary edema) Asthma, Sleep Apnea, COPD Currently Using CPAP: No Cardiac: Yes (CHF) Chronic Edema/Swelling, High Cholesterol, Hypertension Neurological: Yes Neuropathy Reproductive Disorders: No Female Reproductive Disorders: Denies Sexually Transmitted Disease: No HIV/AIDS: No Genitourinary: Yes (chronic kidney dz) Renal Failure Gastrointestinal: Yes Gastroesophageal Reflux, Gall Bladder Disease Musculoskeletal: Yes (KNEE SURGERIES, BACK SURGERY) Degenerate Disk Disease, Arthritis, Rheumatoid Arthritis, Chronic Back Pain Endocrine: No HEENT: Yes (cataracts removed, ) Loss of Vision: Bilateral Hearing Impairment: Denies Cancer: Yes Breast Did You Recieve Any Treatments: No What Type of Treatment Did You: Surgical Intervention Psychosocial: Yes Anxiety, Depression Integumentary: No Blood Disorders: Yes (IMMUNOGLOBULIN DEFICIENCY) Adverse Reaction/Blood Tranf: No Family Medical History Cancer G8 SISTER Congestive heart failure 19 FATHER Family history: Cardiovascular disease 19 FATHER 19 MOTHER G8 BROTHER Family history: Coronary thrombosis 19 FATHER 19 MOTHER Family history: Hypertension 19 MOTHER Stroke 19 MOTHER G8 BROTHER No Pertinent Family Hx Review of Systems Time Seen by Provider: 09:55 Constitutional: Fever, Chills, Sweats, Weakness, Malaise, Other Eyes: No: Pain, Vision change, Conjunctivae inflammation, Eyelid inflammation, Other, Redness ENT: Nose congestion; No: Ear pain, Ear discharge, Nose pain, Nose discharge, Mouth pain, Mouth swelling, Throat pain, Throat swelling, Other Respiratory: Cough, Shortness of breath, SOB with excertion, Wheezing, Sputum; No: Hemoptysis, Pleuritic Pain Cardiovascular: Palpitations, Paroxysmal Noc. Dyspnea; No: Edema Gastrointestinal: Constipation; No: Nausea, Vomiting, Abdominal Pain, Diarrhea, Melena, Hematochezia, Other Genitourinary: No Dysuria, No Frequency, No Incontinence, No Hematuria, No Retention, No Other Sepsis Event Evaluation Height, Weight, BMI Height: 5'4.00" Weight: 270lbs. 9.0oz. 122.957203ob; 43.72 BMI Method:Stated Exam Exam Vital Signs Date Time Temp Pulse Resp B/P (MAP) Pulse Ox O2 Delivery O2 Flow Rate FiO2 12/21/18 11:35 97 Nasal Cannula 2.00 12/21/18 11:05 66 Height & Weight Height: 5'4.00" Weight: 270lbs. 9.0oz. 122.783552qz; 43.72 BMI Method:Stated General Appearance: Anxious, Chronically ill, Mild Distress, Obese HEENT: PERRL/EOMI, Normal ENT Inspection, Pharynx Normal Neck: Full Range of Motion, Non Tender, Supple Respiratory: Chest Non Tender, Crackles, Decreased Breath Sounds, Respiratory Distress, Wheezing Cardiovascular: Regular Rate, Rhythm, No Edema, No Gallop Capillary Refill: Less Than 3 Seconds Gastrointestinal: normal bowel sounds, non tender, soft Extremity: Normal Capillary Refill, Normal Inspection, No Pedal Edema Neurologic/Psychiatric: Alert, Oriented x3 Skin: Normal Color, Warm/Dry Lymphatic: No Adenopathy Results Lab Laboratory Tests 12/21/18 11:10 Assessment/Plan Assessment/Plan Acute respiratory distress with hypoxia -Check CT of chest without contrast PNA - failed out pt treatment -I reviewed previous cultures pt has hx of MRSA and ESBL -Agree with vanco and Merjames Acute bronchitis/AsthmaAE -Solumedrol 40 IV Q 6 -Duoneb Obesity with OHS and VALDO -Noncompliant with home vent to mask Atelectasis -SVNs -IS Allergic rhinitis -naz truong CHF, Nonischemic cardiomyopathy JORGE DORADO DO Dec 21, 2018 11:55 POS
--- NOTE | 2018-12-21 12:31 | NUR ---
VANCOMYCIN DOSING SCR 0.83 (USED 1.0); CRCL ~ 62; BOLUS VANC 20 MG/KG X 115 KG ~ 2250 MG THEN VANC 15 MG/KG ~ 1750 MG Q12H CHECK TROUGH LEVEL 12/22 1030 HOLD DOSE AND CONTACT PHARMACY IF LEVEL IS GREATER THAN 20
[2018-12-21] MEDS: MEROPENEM 500 MG in WATER (STERILE) FOR INJECTION 10 ML IV SCH ×3 (12:40→23:25)
[2018-12-21] MEDS: methylPREDNISolone 40 MG/ML (Solu-MEDROL) VIAL IV SCH ×3 (12:41→23:32)
[2018-12-21 13:20] VITALS: BP 131/60
--- NOTE | 2018-12-21 13:43 | Consultation-Cardiology ---
HPI-Cardiology Cardiology Consultation Date of Consultation 12/21/18 Date of Admission Time Seen by Provider: 11:00 Indication: Dysnea HPI Patient is a 73 y/o female with history of COPD, CHF. Direct admit from PCP for pneumonia. Patient reports she has had productive cough x 4 days and increasing dyspnea. Denies any chest pain, F/C/NS. Denies any increased peripheral edema. 73-year-old lady with history of CHF, COPD, has been having increasing shortness of breath and cough wheezing. She was scheduled for shoulder surgery, did not improve with oral medication she was admitted for aggressive treatment for pneumonia. Denied chest pain. No palpitation, mild pedal edema. No syncope or near syncopal episodes. Home Medications & Allergies Allergies: Coded Allergies: NSAIDS (Non-Steroidal Anti-Inflamma (Unverified Allergy, Mild, 03/18/09) Influenza Virus Vaccines (Verified Allergy, Unknown, 12/07/18) Penicillins (Verified Allergy, Unknown, 01/03/06) Sulfa (Sulfonamide Antibiotics) (Verified Allergy, Unknown, 01/03/06) aspirin (Verified Allergy, Unknown, 01/03/06) atorvastatin (Verified Allergy, Unknown, 12/07/18) carbamazepine (Verified Allergy, Unknown, 09/20/06) cephalexin (Verified Allergy, Unknown, 01/03/06) iodine (Verified Allergy, Unknown, 01/03/06) latex (Unverified Allergy, Unknown, 06/21/13) meloxicam (Verified Allergy, Unknown, 12/07/18) peanut (Verified Allergy, Unknown, 12/07/18) Home Medication List Reviewed: Yes QNA-[id number] Hx Patient Social History 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[employer]) Alcohol Use: Denies Use Recreational Drug Use: No Smoking Status: Former Smoker Former smoker/When Quit: Feb 22, 1993 Type Used: Cigarettes 2nd Hand Smoke Exposure: No Recent Foreign Travel: No Recent Infectious Disease Expo: No Recent Hopitalizations: No Physical Abuse Screen: No Sexual Abuse: No Immunizations Up To Date Tetanus Booster (TDap): Unknown Date of Pneumonia Vaccine: Sep 22, 2013 Date of Influenza Vaccine: Nov 22, 2017 Past Medical History CHF, COPD, Chronic peripheral edema, PVD Family Medical History Significant Family History: No Pertinent Family Hx Family History: Cancer G8 SISTER Congestive heart failure 19 FATHER Family history: Cardiovascular disease 19 FATHER 19 MOTHER G8 BROTHER Family history: Coronary thrombosis 19 FATHER 19 MOTHER Family history: Hypertension 19 MOTHER Stroke 19 MOTHER G8 BROTHER Review of Systems-General Review of Systems Constitutional: see HPI; No chills, No diaphoresis, No dizziness; malaise EENTM: see HPI, nose congestion; No blurred vision, No double vision, No vision loss, No throat pain Respiratory: see HPI, cough, dyspnea on exertion; No hemoptysis, No orthopnea; phlegm, short of breath; No wheezing Cardiovascular: No chest pain; edema; No palpitations Gastrointestinal: No abdominal pain; constipation; No diarrhea; loss of a ppetite; No nausea Genitourinary: No dysuria, No frequency Musculoskeletal: No back pain; joint pain (shoulder pain) Psychiatric/Neurological: Headache (sinuses); Denies Numbness, Denies Par esthesia Reviewed Test Results Reviewed Test Results Lab Laboratory Tests 12/21/18 11:10: White Blood Count 8.3, Red Blood Count 4.18L, Hemoglobin 13.3, Hematocrit 40, Mean Corpuscular Volume 96, Mean Corpuscular Hemoglobin 32, Mean Corpuscular Hemoglobin Concent 33, Red Cell Distribution Width 13.6, Platelet Count 178, Mean Platelet Volume 10.5H, Neutrophils (%) (Auto) 63, Lymphocytes (%) (Auto) 21, Monocytes (%) (Auto) 11, Eosinophils (%) (Auto) 5, Basophils (%) (Auto) 1, Neutrophils # (Auto) 5.2, Lymphocytes # (Auto) 1.8, Monocytes # (Auto) 0.9, Eosinophils # (Auto) 0.4H, Basophils # (Auto) 0.0, Prothrombin Time 13.3, INR Comment 1.0, Activated Partial Thromboplast Time 29, Sodium Level 142, Potassium Level 3.4L, Chloride Level 103, Carbon Dioxide Level 31, Anion Gap 8, Blood Urea Nitrogen 8, Creatinine 0.83, Estimat Glomerular Filtration Rate > 60, BUN/Creatinine Ratio 10, Glucose Level 98, Lactic Acid Level 1.22, Calcium Level 9.2, Corrected Calcium 9.5, Total Bilirubin 0.9, Aspartate Amino Transf (AST /SGOT) 19, Alanine Aminotransferase (ALT/SGPT) 9, Alkaline Phosphatase 78, B- Type Natriuretic Peptide 39.2, Total Protein 6.0L, Albumin 3.6 12/21/18 11:30: Blood Gas Puncture Site LEFT RADIAL, Blood Gas Patient Temperature 36.6, Arterial Blood pH 7.48H, Arterial Blood Partial Pressure CO2 40, Arterial Blood Partial Pressure O2 61L, Arterial Blood HCO3 29H, Arterial Blood Total CO2 30.6, Arterial Blood Oxygen Saturation 96, Arterial Blood Base Excess 5.6H, Izaiah Test POSITIVE, Blood Gas Ventilator Setting NO, Blood Gas Inspired Oxygen 2 L Microbiology 12/21/18 Influenza Types A,B Antigen (NURIA) - Final, Complete ECG Impression ECG Initial ECG Rhythm: Normal Sinus Initial ECG Impression: 1st Degree AV Block Physical Exam Physical Exam Vital Signs Vital Signs - First Documented 12/21/18 12/21/18 12/21/18 12/21/18 11:05 11:34 11:35 13:20 Temp 36.6 Pulse 66 Resp 20 B/P (MAP) 131/60 Pulse Ox 97 O2 Delivery Nasal Cannula O2 Flow Rate 2.00 FiO2 28 Capillary Refill : Height, Weight, BMI Height: 5'4.00" Weight: 270lbs. 9.0oz. 122.542839gu; 43.72 BMI Method:Stated General Appearance: No Apparent Distress, WD/WN, Obese HEENT: PERRL/EOMI, Normal ENT Inspection Neck: No Lymphadenopathy (L), No Lymphadenopathy (R); Tender Lateral (right side near level of thyroid, no erythema, mass or lump on palpation) Respiratory: No Accessory Muscle Use, No Respiratory Distress, Crackles Cardiovascular: Regular Rate, Rhythm, No Gallop, No Murmur, Normal Peripheral Pulses Gastrointestinal: Normal Bowel Sounds, Non Tender, Soft; No Splenomegaly; Other (discomfort palpating LUQ, no pain, no mass noted) Back: No CVA Tenderness Extremity: No Calf Tenderness, Pedal Edema Neurologic/Psychiatric: Alert, Oriented x3, Normal Mood/Affect Skin: No Normal Color A/P-Cardiology Admission Diagnosis Pneumonia COPD CHF HTN Assessment/Plan Pneumonia- management per Dr. Andrew and medical services. COPD- management per Dr. Andrew and medical services. CHF, Nonischemic cardiomyopathy, MUGA scan was done in November 2015 showing ejection fraction 55 percent, most recent 2-D echocardiogram done January 2018 revealed EF 50-55 percent. I will reevaluate 2D Echo Mild coronary artery disease nonobstructive disease by cardiac catheterization done in May 2014. Continue to monitor at this time. Peripheral arterial disease, history of abdominal aortogram with angiogram to the lower extremities done by Dr. Cosme, reported to good vessel runoff to the lower extremities, medical therapy was recommended, repeat Peripheral runoff showed total occlusion of the anterior tibial artery and both lower extremities with brisk flow. It was done in March 2016, patient was referred by Dr. Kate to [facility] and had angioplasty and stent done using drug-eluting stent Promus 3.524 mm to the anterior tibial artery on the right side with good results. Hypertension, restart home blood pressure medications and continue to monitor. Moderate bilateral carotid stenosis, ultrasound was done in October 2016. CTA head and neck done February 2018. Continue to monitor. 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 Peripheral edema, chronic, continue to monitor. History of multiple back and knee surgeries, had spinal fusion surgery done Chronic renal insufficiency, follows with Dr. Saundra Cruz as outpatient, continue to monitor renal function. History of elevated liver enzymes, continue to monitor. Obesity, BMI is 47, patient was educated on weight loss History of anemia, followed and managed by primary care physician Thank you for allowing us to participate in the management of Ms. Shetty. This is Elda Kirkpatrick PA-C, as a scribe for Dr. Carbajal. Patient was seen and evaluated with Elda, examination performed, management plan was discussed, agree with the current scribed note, I made few changes to the note using Italic font Patient is sitting in bed, having mild shortness of breath and cough On examination lungs had bilateral rhonchi, heart is regular Started on antibiotics Restart home medication and monitor blood pressure, evaluate EKG. Clinical Quality Measures DVT/VTE Risk/Contraindication: Risk Factor Score Per Nursin RFS Level Per Nursing on Admit: 4+=Very High ELDA SAMUEL Dec 21, 2018 13:43 DEVI BOLTON MD Dec 21, 2018 14:34 MICHAEL
[2018-12-21 13:54] LABS: BILIRUBIN,URINE NEGATIVE (NEGATIVE); CLARITY,URINE CLEAR; COLOR,URINE YELLOW; GLUCOSE, URINE (UA) NEGATIVE (NEGATIVE); KETONES,URINE NEGATIVE (NEGATIVE); LEUKOCYTE ESTERASE ,URINE 2+ (NEGATIVE); NITRITE,URINE NEGATIVE (NEGATIVE); PH,URINE 7 (5-9); PROTEIN,URINE NEGATIVE (NEGATIVE)
[2018-12-21 14:00] LABS: BACTERIA,URINE TRACE /HPF; SQUAMOUS EPITHELIAL CELL,UR 0-2 /HPF
[2018-12-21] MEDS ORDERED: CATHETER FLUSH 10 ML SYR IV PRN (14:00)
[2018-12-21] MEDS ORDERED: RT-ALBUTEROL/IPRATROPIUM 3 ML (DUONEB) VIAL INH SCH (14:00)
[2018-12-21] MEDS ORDERED: HOLD METFORMIN - RECEIVED CONTRAST 20 ML VIAL IV SCH (14:00)
[2018-12-21] MEDS ORDERED: IOHEXOL 350 MG/ML 100 ML (OMNIPAQUE 350) VIAL IV ONE (14:00)
[2018-12-21] MEDS ORDERED: NS 100 ML (IVPB) BAG IV ONE (14:00)
[2018-12-21] MEDS ORDERED: TOPI25TA10 PO (14:08)
[2018-12-21] MEDS ORDERED: FERR-84 PO (14:08)
[2018-12-21] MEDS ORDERED: BUME2TAB7 PO (14:08)
[2018-12-21] MEDS ORDERED: TR1C15 TP (14:08)
[2018-12-21] MEDS ORDERED: IPRA3AMP31 NEB (14:08)
[2018-12-21] MEDS ORDERED: GUAI5SYR PO (14:08)
--- NOTE | 2018-12-21 14:12 | NUR ---
UPDATED MED REC WITH MAR FROM [facility].
[2018-12-21] MEDS: RT-ALBUTEROL/IPRATROPIUM 3 ML (DUONEB) VIAL INH SCH ×4 (14:30→22:53)
--- NOTE | 2018-12-21 15:12 | Diagnostic Imaging Report ---
EXAMINATION: CT Chest without contrast. TECHNIQUE: Multiple contiguous axial images were obtained through the chest without the use of intravenous contrast. All CT scans use one or more of the following dose optimizing techniques: automated exposure control, MA and/or KvP adjustment based on a patient size and exam type, or iterative reconstruction. HISTORY: Shortness of breath. COMPARISON: 01/29/2018. FINDINGS: There is mild bibasilar atelectasis. There are scattered centrilobular and tree-in-bud nodules in the lung bases concerning for an inflammatory airway centered process such as bronchitis. There is also mild bronchial wall thickening. Fissural lymph node along the right major fissure is unchanged. No pleural effusion or pneumothorax. No suspicious nodules. Heart size is normal. No pericardial effusion. Aorta is normal in caliber. There is no axillary or supraclavicular lymphadenopathy. There is no mediastinal lymphadenopathy. There are moderate coronary artery calcifications. Surgical clips are seen in the right axilla. A central venous catheter tip terminates at the right atrium. Cholecystectomy clips are in the upper abdomen. There is extensive instrumentation of the posterior thoracolumbar spine. There are no suspicious osseous lesions. IMPRESSION: 1. Scattered centrilobular and tree-in-bud nodules with bronchial wall thickening in the lung bases suggestive of an inflammatory airway centered process such as bronchitis. Dictated by: Dictated on workstation # [id number]
[2018-12-21 15:57] VITALS: BP 165/83
[2018-12-21] MEDS ORDERED: MENTHOL/ZINC OXIDE (CALMOSEPTINE) 113 GM TUBE TP PRN (16:30)
[2018-12-21] MEDS ORDERED: FLUTICASONE NASAL SPRAY (FLONASE) 16 GM BTL NS PRN (16:30)
[2018-12-21] MEDS ORDERED: NON-FORMULARY MEDICATION 1 EA EA (Oxycodone HCl 20 MG) PO PRN (16:30)
[2018-12-21] MEDS ORDERED: NON-FORMULARY MEDICATION 1 EA EA (Bumetanide 2 MG) PO PRN (16:30)
[2018-12-21] MEDS ORDERED: NON-FORMULARY MEDICATION 1 EA EA (Hydroxychloroquine Sulfate 200 MG) PO SCH (17:00)
[2018-12-21] MEDS ORDERED: BUMETANIDE 1 MG (BUMEX) TAB PO PRN (17:00)
[2018-12-21] MEDS ORDERED: NON-FORMULARY MEDICATION 1 EA EA (Potassium Chloride 20 MEQ) PO SCH (17:00)
[2018-12-21] MEDS: KCL 20 MEQ TAB (K-DUR) PO SCH ×2 (17:22→17:31)
[2018-12-21] MEDS: HYDROXYCHLOROQUINE 200 MG (PLAQUENIL) TAB PO SCH (17:22)
[2018-12-21] MEDS: KCL 10 MEQ TAB (MICRO K) PO SCH (18:37)
[2018-12-21] MEDS: RT-ADVAIR HFA 115/21 MCG PER PUFF IH SCH (19:14)
[2018-12-21 20:19] VITALS: BP 141/63
[2018-12-21] MEDS: SENNA W/DOCUSATE (SENOKOT S) TABLET PO SCH (20:39)
[2018-12-21] MEDS: VITAMIN D3 1,000 UNITS (CHOLECALCIFEROL) TABLET PO SCH (20:39)
[2018-12-21] MEDS: GABAPENTIN 300 MG (NEURONTIN) CAP PO SCH (20:40)
[2018-12-21] MEDS: toPIRamate 25 MG (TOPAMAX) TAB PO SCH (20:40)
[2018-12-21] MEDS: PANTOPRAZOLE 40 MG (PROTONIX) TAB PO SCH (20:40)
[2018-12-21] MEDS: SIMvastatin 20 MG (ZOCOR) TAB PO SCH (20:40)
[2018-12-21] MEDS: CARVEDILOL 12.5 MG (COREG) TABLET PO SCH (20:40)
[2018-12-21] MEDS ORDERED: NON-FORMULARY MEDICATION 1 EA EA (Esomeprazole Magnesium (Nexium) 40 MG) PO SCH (21:00)
[2018-12-21] MEDS ORDERED: NON-FORMULARY MEDICATION 1 EA EA (Cranberry Fruit (Cranberry) 400 MG) PO SCH (21:00)
[2018-12-21] MEDS ORDERED: NON-FORMULARY MEDICATION 1 EA EA (Cholecalciferol (Vitamin D3) (Vitamin D-3) 2,000 UNIT) PO SCH (21:00)
[2018-12-21] MEDS ORDERED: ENOXAPARIN 40 MG/0.4 ML (LOVENOX) SYR SC SCH (21:15)
[2018-12-21] MEDS ORDERED: VANCOMYCIN 1,750 MG/NS 500 ML IVPB IV SCH ×2 (23:30)
[2018-12-22] VITALS: BP 146/75
[2018-12-22] MEDS: RT-ALBUTEROL/IPRATROPIUM 3 ML (DUONEB) VIAL INH SCH ×6 (03:16→21:30)
[2018-12-22 04:27] VITALS: BP 150/68
[2018-12-22] MEDS: MEROPENEM 500 MG in WATER (STERILE) FOR INJECTION 10 ML IV SCH ×3 (05:34→17:59)
[2018-12-22] MEDS: methylPREDNISolone 40 MG/ML (Solu-MEDROL) VIAL IV SCH ×3 (05:36→18:04)
[2018-12-22] MEDS: ASCORBIC ACID (VIT C) 500 MG TABLET PO SCH (06:38)
[2018-12-22 08:00] VITALS: BP 159/81
--- NOTE | 2018-12-22 08:32 | Cardiology Progress Note ---
Subjective Date Seen by Provider: Dec 22, 2018 Time Seen by Provider: 08:30 Subjective/Events-last exam patient is sitting in a chair, feeling better. No chest pain, still having shortness of breath and edema Review of Systems General: No Chills, No Night Sweats; Fatigue; No Malaise, No Appetite, No Other HEENT: No Head Aches, No Visual Changes, No Eye Pain, No Ear Pain, No Dysphasia, No Sinus Congestion, No Post Nasal Drip, No Sore Throat, No Other Pulmonary: Dyspnea; No Cough, No Pleuritic Chest Pain, No Other Cardiovascular: Edema; No: Chest Pain, Palpitations, Orthopnea, Paroxysmal Noc. Dyspnea, Lt Headedness, Other Focused Exam Lactate Level 12/21/18 11:10: Lactic Acid Level 1.22 Objective-Cardiology Exam Last Set of Vital Signs Vital Signs 12/21/18 12/22/18 11:34 04:27 Temp 36.6 Pulse 88 Resp 18 B/P (MAP) 150/68 (95) Pulse Ox 93 O2 Delivery Nasal Cannula O2 Flow Rate 3.00 FiO2 28 Capillary Refill : I&O Intake and Output 12/22/18 00:00 Intake Total 1382.5 ml Output Total 680 ml Balance 702.5 ml Intake Oral 840 ml IV Total 542.5 ml Output Urine Total 680 ml # Voids 2 Daily Weight Change No No General: Alert, Oriented X3, Cooperative HEENT: Atraumatic, PERRLA Neck: Supple, No JVD, No Thyromegaly Lungs: Clear to Auscultation, Normal Air Movement Heart: Regular Rate, Normal S1, Normal S2, No Murmurs Abdomen: Normal Bowel Sounds, Soft, No Tenderness, No Hepatosplenomegaly, No Masses Extremities: No Clubbing, No Cyanosis, Normal Pulses, No Tenderness/Swelling Skin: No Rashes, No Breakdown, No Significant Lesion, Other (peripheral edema) Neuro: Normal Gait, Normal Speech, Strength at 5/5 X4 Ext, Normal Tone, Sensation Intact Psych/Mental Status: Mental Status NL, Mood NL Results Lab Laboratory Tests 12/21/18 11:10 A/P-Cardiology Admission Diagnosis Pneumonia COPD CHF HTN Assessment/Plan Pneumonia, receiving antibiotic- management per Dr. Andrew and medical services. COPD, reporting improvement in her dyspnea. And tinea to monitor CHF, Nonischemic cardiomyopathy, MUGA scan was done in November 2015 showing ejection fraction 55 percent, echocardiogram done on December 21, 2018 showing ejection fraction 45-50 percent, left atrial dilatation, pulmonary artery pressure of 35 mmHg. BNP is normal. No signs of congestive heart failure. Continue to monitor Mild coronary artery disease nonobstructive disease by cardiac catheterization done in May 2014. Continue to monitor at this time. Peripheral arterial disease, history of abdominal aortogram with angiogram to the lower extremities done by Dr. Cosme, reported to good vessel runoff to the lower extremities, medical therapy was recommended, repeat Peripheral runoff showed total occlusion of the anterior tibial artery and both lower extremities with brisk flow. It was done in March 2016, patient was referred by Dr. Kate to [facility] and had angioplasty and stent done using drug-eluting stent Promus 3.524 mm to the anterior tibial artery on the right side with good results. Hypertension, restart home blood pressure medications and continue to monitor. Moderate bilateral carotid stenosis, ultrasound was done in October 2016. CTA head and neck done February 2018. Continue to monitor. 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 Peripheral edema, chronic, continue to monitor. History of multiple back and knee surgeries, had spinal fusion surgery done Chronic renal insufficiency, follows with Dr. Saundra Cruz as outpatient, continue to monitor renal function. History of elevated liver enzymes, continue to monitor. Obesity, BMI is 47, patient was educated on weight loss History of anemia, followed and managed by primary care physician Clinical Quality Measures DVT/VTE Risk/Contraindication: Risk Factor Score Per Nursin RFS Level Per Nursing on Admit: 4+=Very High DEVI LONDON MD Dec 22, 2018 08:32 POS
[2018-12-22] MEDS ORDERED: NON-FORMULARY MEDICATION 1 EA EA (Fluticasone/Salmeterol (Advair 250-50 Diskus) 1 PUFF) IH SCH (09:00)
[2018-12-22] MEDS ORDERED: NON-FORMULARY MEDICATION 1 EA EA (Allopurinol 100 MG) PO SCH (09:00)
[2018-12-22] MEDS ORDERED: [UNRECOGNIZED DRUG - REMARK] PO SCH (09:00)
[2018-12-22] MEDS ORDERED: NON-FORMULARY MEDICATION 1 EA EA (Duloxetine HCl 60 MG) PO SCH (09:00)
[2018-12-22] MEDS ORDERED: NON-FORMULARY MEDICATION 1 EA EA (Ascorbate Calcium (Vitamin C) 500 MG) PO SCH (09:00)
[2018-12-22] MEDS ORDERED: NON-FORMULARY MEDICATION 1 EA EA (Bumetanide 2 MG) PO SCH (09:00)
[2018-12-22] MEDS: SENNA W/DOCUSATE (SENOKOT S) TABLET PO SCH ×2 (09:05→20:39)
[2018-12-22] MEDS: BUMETANIDE 1 MG (BUMEX) TAB PO SCH (09:05)
[2018-12-22] MEDS: CARVEDILOL 12.5 MG (COREG) TABLET PO SCH ×2 (09:05→20:35)
[2018-12-22] MEDS: DULoxetine 30 MG (CYMBALTA) CAP PO SCH (09:06)
[2018-12-22] MEDS: ALLOPURINOL 100 MG (ZYLOPRIM) TAB PO SCH (09:06)
[2018-12-22] MEDS: CLOPIDOGREL 75 MG (PLAVIX) TABLET PO SCH (09:06)
[2018-12-22] MEDS: FERROUS SULF 325 MG (IRON) TAB PO SCH (09:06)
[2018-12-22] MEDS: LORATADINE (CLARITIN) 10 MG TAB PO SCH (09:06)
[2018-12-22] MEDS: TOLTERODINE LA 4 MG (DETROL) CAP PO SCH (09:06)
[2018-12-22] MEDS: ENALAPRIL 2.5 MG (VASOTEC) TAB PO SCH (09:06)
[2018-12-22 09:29] LABS: BASOPHILS % (AUTO) 0 % (0-10); EOSINOPHILS % (AUTO) 0 % (0-10); HEMATOCRIT 40 % (35-52); HEMOGLOBIN 13.3 G/DL (11.5-16.0); LYMPHOCYTES # (AUTO) 0.7 X 10^3 (1.0-4.0); LYMPHOCYTES % (AUTO) 9 % (12-44); MEAN CORPUSCULAR HEMOGLOBIN 32 PG (25-34); MEAN CORPUSCULAR HGB CONC 33 G/DL (32-36); MEAN CORPUSCULAR VOLUME 95 FL (80-99); MEAN PLATELET VOLUME 10.9 FL (7.4-10.4); MONOCYTES # (AUTO) 0.1 X 10^3 (0.0-1.0); MONOCYTES % (AUTO) 1 % (0-12); NEUTROPHILS # (AUTO) 6.9 X 10^3 (1.8-7.8); NEUTROPHILS % (AUTO) 89 % (42-75); PLATELET COUNT 184 10^3/uL (130-400); RED CELL DISTRIBUTION WIDTH 13.1 % (10.0-14.5); WHITE BLOOD COUNT 7.7 10^3/uL (4.3-11.0)
--- NOTE | 2018-12-22 09:40 | Progress Note ---
DEMOND SUMNER MED STUDENT 12/22/18 0940: Subjective Date Seen by a Provider: Dec 22, 2018 Time Seen by a Provider: 07:15 Subjective/Events-last exam CC: pneumonia * Vitals: HR 88, RR 18, BP 150/68 * On 3 L O2 nasal cannula * Labs: Neut% 89, Lymph% 9, BNP 112.2, glucose 193 * CT yesterday shows centrilobular tree-in-bud nodules w/ bronchial wall thickening in bases, suggestive of inflammatory process, bronchitis * UA culture negative * When seen today she denies having any new complaints, feels much better overall * Denies having any SOB at rest, has not been active as of yet * Continues to have constipation Review of Systems General: No Chills, No Night Sweats HEENT: Head Aches (forehead, associates with sinuses), Sinus Congestion, Post Nasal Drip Pulmonary: No Dyspnea (none at rest); Cough Cardiovascular: Edema; No: Chest Pain, Palpitations Gastrointestinal: Constipation; No: Nausea, Vomiting, Abdominal Pain Genitourinary: No Dysuria, No Frequency Neurological: No: Numbness Focused Exam Lactate Level 12/21/18 11:10: Lactic Acid Level 1.22 Objective Exam Last Set of Vital Signs Vital Signs Date Time Temp Pulse Resp B/P (MAP) Pulse Ox O2 Delivery O2 Flow Rate FiO2 12/22/18 08:00 36.6 89 18 159/81 (107) 93 Nasal Cannula 3.00 12/21/18 11:34 28 Capillary Refill : I&O Intake and Output 12/22/18 00:00 Intake Total 1382.5 ml Output Total 680 ml Balance 702.5 ml Intake Oral 840 ml IV Total 542.5 ml Output Urine Total 680 ml # Voids 2 Daily Weight Change No No General: Alert, Oriented X3, Cooperative, No Acute Distress Heart: Regular Rate, No Murmurs, Gallops Extremities: Normal Pulses, No Tenderness/Swelling, Other (bilateral LE edema, dermatitis ) Neuro: Normal Speech Psych/Mental Status: Mental Status NL, Mood NL Results Lab Laboratory Tests 12/21/18 11:10: White Blood Count 8.3, Red Blood Count 4.18L, Hemoglobin 13.3, Hematocrit 40, Mean Corpuscular Volume 96, Mean Corpuscular Hemoglobin 32, Mean Corpuscular Hemoglobin Concent 33, Red Cell Distribution Width 13.6, Platelet Count 178, Mean Platelet Volume 10.5H, Neutrophils (%) (Auto) 63, Lymphocytes (%) (Auto) 21, Monocytes (%) (Auto) 11, Eosinophils (%) (Auto) 5, Basophils (%) (Auto) 1, Neutrophils # (Auto) 5.2, Lymphocytes # (Auto) 1.8, Monocytes # (Auto) 0.9, Eosinophils # (Auto) 0.4H, Basophils # (Auto) 0.0, Prothrombin Time 13.3, INR Comment 1.0, Activated Partial Thromboplast Time 29, Sodium Level 142, Potassium Level 3.4L, Chloride Level 103, Carbon Dioxide Level 31, Anion Gap 8, Blood Urea Nitrogen 8, Creatinine 0.83, Estimat Glomerular Filtration Rate > 60, BUN/Creatinine Ratio 10, Glucose Level 98, Lactic Acid Level 1.22, Calcium Level 9.2, Corrected Calcium 9.5, Total Bilirubin 0.9, Aspartate Amino Transf (AST/SGOT) 19, Alanine Aminotransferase (ALT/SGPT) 9, Alkaline Phosphatase 78, B-Type Natriuretic Peptide 39.2, Total Protein 6.0L, Albumin 3.6 12/21/18 11:30: Blood Gas Puncture Site LEFT RADIAL, Blood Gas Patient Temperature 36.6, Arterial Blood pH 7.48H, Arterial Blood Partial Pressure CO2 40, Arterial Blood Partial Pressure O2 61L, Arterial Blood HCO3 29H, Arterial Blood Total CO2 30.6, Arterial Blood Oxygen Saturation 96, Arterial Blood Base Excess 5.6H, Izaiah Test POSITIVE, Blood Gas Ventilator Setting NO, Blood Gas Inspired Oxygen 2 L 12/21/18 13:12: Urine Color YELLOW, Urine Clarity CLEAR, Urine pH 7, Urine Specific [place] 1.010L, Urine Protein NEGATIVE, Urine Glucose (UA) NEGATIVE, Urine Ketones NEGATIVE, Urine Nitrite NEGATIVE, Urine Bilirubin NEGATIVE, Urine Urobilinogen NORMAL, Urine Leukocyte Esterase 2+H, Urine RBC (Auto) NEGATIVE, Urine RBC NONE, Urine WBC 10-25H, Urine Squamous Epithelial Cells 0-2, Urine Crystals NONE, Urine Bacteria TRACE, Urine Casts NONE, Urine Mucus NEGATIVE, Urine Culture Indicated CULTURE PENDING 12/22/18 09:15: White Blood Count 7.7, Red Blood Count 4.22L, Hemoglobin 13.3, Hematocrit 40, Mean Corpuscular Volume 95, Mean Corpuscular Hemoglobin 32, Mean Corpuscular Hemoglobin Concent 33, Red Cell Distribution Width 13.1, Platelet Count 184, Mean Platelet Volume 10.9H, Neutrophils (%) (Auto) 89H, Lymphocytes (%) (Auto) 9L, Monocytes (%) (Auto) 1, Eosinophils (%) (Auto) 0, Basophils (%) (Auto) 0, Neutrophils # (Auto) 6.9, Lymphocytes # (Auto) 0.7L, Monocytes # (Auto) 0.1, Eo sinophils # (Auto) 0.0, Basophils # (Auto) 0.0 Microbiology 12/21/18 Influenza Types A,B Antigen (NURIA) - Final, Complete 12/21/18 Urine Culture - Preliminary, Resulted Assessment/Plan Assessment/Plan Assess & Plan/Chief Complaint Assessment: 1. Pneumonia 2. abnormal CXR, CT 3. abnormal BNP 4. COPD 5. CHF 6. DM2 Plan: 1. Echocardiogram 2. Continue meropenem, vancomycin 3. Continue 3 L O2 per nasal cannula, nebulizer treatment, monitor O2 sat, SOB 4. Continue home medications for chronic conditions 5. Continue DVT prophylaxis Clinical Quality Measures DVT/VTE Risk/Contraindication: Risk Factor Score Per Nursin RFS Level Per Nursing on Admit: 4+=Very High CLARE MADERA DO 12/23/18 0826: Subjective Subjective/Events-last exam Pt had a pretty good night. All home meds were restarted including pain medications. Lungs sound improved but still a long way to go. IV steroids tolerated well. Will wrap her legs once assisted living helpers bring her wraps with them to her. Bowels not moving yet but will give Senokot. Appreciate Dr. Andrew and Dr. Carbajal. Labs reviewed. IV antibiotics tolerated. Overall doing very well. Oxygen at three liters and maintaining good saturations. Review of Systems General: Fatigue Pulmonary: Dyspnea (none at rest), Cough Objective Exam General: Alert, Oriented X3, Cooperative Lungs: Other (crackles wheezes, improved) Heart: Regular Rate, Normal S1, Normal S2, No Murmurs Skin: No Rashes, No Breakdown, No Significant Lesion Assessment/Plan Assessment/Plan Assess & Plan/Chief Complaint IV steroids IV abx Monitor labs Wrap legs Diagnosis/Problems Diagnosis/Problems (1) Pneumonia (2) Essential (primary) hypertension Status: Chronic (3) COPD exacerbation Status: Resolved (4) Obesity hypoventilation syndrome Status: Chronic (5) VALDO on CPAP Status: Resolved Resolution Date/Time: 02/20/18 @ 18:58 (6) Severe pain Status: Chronic (7) Hypoxia Status: Acute (8) Lymphedema Status: Chronic (9) CHF (congestive heart failure) Status: Chronic Supervisory-Addendum Brief Verification & Attestation Participated in pt care: history, MDM, physical Personally performed: exam, history, MDM, supervision of care Care discussed with: Medical Student Procedures: n/a Results interpretation: Verified all documentation Verification and Attestation of Medical Student E/M Service A medical student performed and documented this service in my presence. I reviewed and verified all information documented by the medical student and made modifications to such information, when appropriate. I personally performed the physical exam and medical decision making. Clare Madera, Dec 23, 2018,08:25 DEMOND SUMNER MED STUDENT Dec 22, 2018 09:40 CLARE CHADWICK DO Dec 23, 2018 08:26 POS
[2018-12-22 09:52] LABS: BUN/CREATININE RATIO 14; CALCIUM 9.1 MG/DL (8.5-10.1); CARBON DIOXIDE 25 MMOL/L (21-32); CHLORIDE 103 MMOL/L (98-107); CREATININE SERUM 0.86 MG/DL (0.60-1.30); GFR ESTIMATED > 60; GLUCOSE 193 MG/DL (70-105); MAGNESIUM 1.7 MG/DL (1.6-2.4); PHOSPHORUS 2.6 MG/DL (2.3-4.7); SODIUM 139 MMOL/L (135-145)
--- NOTE | 2018-12-22 10:03 | Pulmonary Progress Note ---
Subjective Time Seen by a Provider: 10:01 Subjective/Events-last exam PT feels improved today. Less wheezy and less SOB. Sepsis Event Evaluation Height, Weight, BMI Height: 5'4.00" Weight: 270lbs. 9.0oz. 122.408736na; 43.72 BMI Method:Stated Focused Exam Lactate Level 12/21/18 11:10: Lactic Acid Level 1.22 Exam Exam Vital Signs Date Time Temp Pulse Resp B/P (MAP) Pulse Ox O2 Delivery O2 Flow Rate FiO2 12/22/18 08:00 36.6 89 18 159/81 (107) 93 Nasal Cannula 3.00 12/22/18 07:01 88 12/22/18 04:27 36.6 88 18 150/68 (95) 93 Nasal Cannula 3.00 12/22/18 03:14 91 Nasal Cannula 3.00 12/22/18 01:00 83 12/22/18 00:00 36.5 83 20 146/75 (98) 94 Nasal Cannula 3.00 12/21/18 21:00 Nasal Cannula 2.00 12/21/18 20:19 36.7 92 20 141/63 (89) 94 Nasal Cannula 3.00 12/21/18 19:08 Nasal Cannula 12/21/18 19:08 92 Nasal Cannula 2.00 12/21/18 19:00 86 12/21/18 15:57 37.0 79 18 165/83 (110) 99 Nasal Cannula 3.00 12/21/18 14:32 88 Nasal Cannula 2.00 12/21/18 13:30 Nasal Cannula 3.00 12/21/18 13:20 36.6 66 20 131/60 97 Nasal Cannula 2.00 12/21/18 13:00 74 12/21/18 11:35 97 Nasal Cannula 2.00 12/21/18 11:34 36.6 66 97 28 12/21/18 11:05 66 I & O 12/22/18 07:00 Intake Total 3010.0 ml Output Total 880 ml Balance 2130.0 ml Height & Weight Height: 5'4.00" Weight: 270lbs. 9.0oz. 122.199260wr; 43.72 BMI Method:Stated General Appearance: No Apparent Distress, Anxious, Chronically ill, Obese HEENT: PERRL/EOMI, Normal ENT Inspection, Pharynx Normal Neck: Full Range of Motion, Non Tender, Supple Respiratory: Chest Non Tender, Crackles, Decreased Breath Sounds Cardiovascular: Regular Rate, Rhythm, No Edema, No Gallop Capillary Refill: Less Than 3 Seconds Gastrointestinal: normal bowel sounds, non tender, soft Extremity: Normal Capillary Refill, Normal Inspection, No Pedal Edema Neurologic/Psychiatric: Alert, Oriented x3 Skin: Normal Color, Warm/Dry Lymphatic: No Adenopathy Results Lab Laboratory Tests 12/21/18 11:10 12/22/18 09:15 Assessment/Plan Assessment/Plan Acute respiratory distress with hypoxia - CT of chest without contrast - shows atelectasis and signs of acute bronchitis PNA - failed out pt treatment -I reviewed previous cultures pt has hx of MRSA and ESBL -Agree with vanco and Alverto Acute bronchitis/AsthmaAE -Solumedrol 40 IV Q 6 -Duoneb Obesity with OHS and VALDO -Noncompliant with home vent to mask Atelectasis -SVNs -IS Allergic rhinitis -clarsaadia bailonulavelia CHF, Nonischemic cardiomyopathy JORGE DORADO DO Dec 22, 2018 10:03 POS
[2018-12-22 10:26] LABS: NEUTROPHILS % (MANUAL) 86 %
[2018-12-22 10:27] LABS: BAND NEUTROPHILS 3 %; BASOPHILS % (MANUAL) 0 %; EOSINOPHILS % (MANUAL) 0 %; LYMPHOCYTES % (MANUAL) 10 %; MONOCYTES % (MANUAL) 1 %; RBC MORPH NORMAL
[2018-12-22] MEDS ORDERED: TROUGH ORDER-PHARMACY XX NR (10:30)
[2018-12-22] MEDS: RT-ADVAIR HFA 115/21 MCG PER PUFF IH SCH ×2 (11:20→21:13)
[2018-12-22] MEDS: HYDROXYCHLOROQUINE 200 MG (PLAQUENIL) TAB PO SCH ×2 (12:27→18:12)
[2018-12-22] MEDS: KCL 10 MEQ TAB (MICRO K) PO SCH ×2 (12:27→18:00)
[2018-12-22] MEDS: ENOXAPARIN 40 MG/0.4 ML (LOVENOX) SYR SC SCH ×2 (12:29→20:39)
[2018-12-22 16:19] VITALS: BP 142/64
[2018-12-22 19:38] VITALS: BP 165/73
[2018-12-22] MEDS: toPIRamate 25 MG (TOPAMAX) TAB PO SCH (20:35)
[2018-12-22] MEDS: VITAMIN D3 1,000 UNITS (CHOLECALCIFEROL) TABLET PO SCH (20:35)
[2018-12-22] MEDS: PANTOPRAZOLE 40 MG (PROTONIX) TAB PO SCH (20:35)
[2018-12-22] MEDS: MONTELUKAST 10 MG (SINGULAIR) TAB PO SCH (20:39)
[2018-12-22] MEDS: GABAPENTIN 300 MG (NEURONTIN) CAP PO SCH (20:39)
[2018-12-22] MEDS: SIMvastatin 20 MG (ZOCOR) TAB PO SCH (20:39)
[2018-12-22 23:35] VITALS: BP 170/73
[2018-12-23] MEDS: methylPREDNISolone 40 MG/ML (Solu-MEDROL) VIAL IV SCH ×3 (00:10→20:24)
[2018-12-23] MEDS: MEROPENEM 500 MG in WATER (STERILE) FOR INJECTION 10 ML IV SCH ×4 (00:10→17:13)
[2018-12-23] MEDS: RT-ALBUTEROL/IPRATROPIUM 3 ML (DUONEB) VIAL INH SCH ×6 (01:52→23:15)
[2018-12-23 04:55] VITALS: BP 170/72
[2018-12-23] MEDS: ASCORBIC ACID (VIT C) 500 MG TABLET PO SCH (05:29)
[2018-12-23] MEDS: RT-ADVAIR HFA 115/21 MCG PER PUFF IH SCH ×3 (07:47→19:14)
[2018-12-23 08:00] VITALS: BP 131/62
--- NOTE | 2018-12-23 08:31 | Cardiology Progress Note ---
Subjective Date Seen by Provider: Dec 23, 2018 Time Seen by Provider: 08:30 Subjective/Events-last exam patient is sitting in chair, eating breakfast patient is sitting in a chair, eating breakfast Review of Systems General: No Chills, No Night Sweats; Fatigue; No Malaise, No Appetite, No Other HEENT: No Head Aches, No Visual Changes, No Eye Pain, No Ear Pain, No Dys phasia, No Sinus Congestion, No Post Nasal Drip, No Sore Throat, No Other Pulmonary: Dyspnea, Cough; No Pleuritic Chest Pain, No Other Cardiovascular: No: Chest Pain, Palpitations, Orthopnea, Paroxysmal Noc. Dyspnea, Edema, Lt Headedness, Other Focused Exam Lactate Level 12/21/18 11:10: Lactic Acid Level 1.22 Objective-Cardiology Exam Last Set of Vital Signs Vital Signs 12/21/18 12/23/18 12/23/18 11:34 04:55 07:45 Temp 36.4 Pulse 72 Resp 18 B/P (MAP) 170/72 (104) Pulse Ox 94 O2 Delivery Nasal Cannula O2 Flow Rate 3.00 FiO2 28 Capillary Refill : Less Than 3 Seconds I&O Intake and Output 12/23/18 00:00 Intake Total 2627.5 ml Output Total 1100 ml Balance 1527.5 ml Intake Oral 1100 ml IV Total 1527.5 ml Output Urine Total 1100 ml General: Alert, Oriented X3, Cooperative HEENT: Atraumatic, PERRLA Neck: Supple, No JVD, No Thyromegaly Lungs: Other (crackles wheezes, improved) Heart: Regular Rate, Normal S1, Normal S2, No Murmurs Abdomen: Normal Bowel Sounds, Soft, No Tenderness, No Hepatosplenomegaly, No Masses Extremities: Normal Pulses, No Tenderness/Swelling, Other (bilateral LE edema, dermatitis ) Skin: No Rashes, No Breakdown, No Significant Lesion Neuro: Normal Speech Psych/Mental Status: Mental Status NL, Mood NL Results Lab Laboratory Tests 12/22/18 09:15 A/P-Cardiology Admission Diagnosis Pneumonia COPD CHF HTN Assessment/Plan Pneumonia, receiving antibiotic- management per Dr. Andrew and medical services. COPD, reporting improvement in her dyspnea. And tinea to monitor CHF, Nonischemic cardiomyopathy, MUGA scan was done in November 2015 showing ejection fraction 55 percent, echocardiogram done on December 21, 2018 showing ejection fraction 45-50 percent, left atrial dilatation, pulmonary artery pressure of 35 mmHg. BNP is normal. No signs of congestive heart failure. Continue to monitor Mild coronary artery disease nonobstructive disease by cardiac catheterization done in May 2014. Continue to monitor at this time. Peripheral arterial disease, history of abdominal aortogram with angiogram to the lower extremities done by Dr. Cosme, reported to good vessel runoff to the lower extremities, medical therapy was recommended, repeat Peripheral runoff showed total occlusion of the anterior tibial artery and both lower extremities with brisk flow. It was done in March 2016, patient was referred by Dr. Kate to [facility] and had angioplasty and stent done using drug-eluting stent Promus 3.524 mm to the anterior tibial artery on the right side with good results. Hypertension, restart home blood pressure medications and continue to monitor. Moderate bilateral carotid stenosis, ultrasound was done in October 2016. CTA head and neck done February 2018. Continue to monitor. CREST syndrome, managed by her manager relocation. Peripheral edema, chronic, continue to monitor. History of multiple back and knee surgeries, had spinal fusion surgery done Chronic renal insufficiency, follows with Dr. Saundra Cruz as outpatient, continue to monitor renal function. History of elevated liver enzymes, continue to monitor. Obesity, BMI is 47, patient was educated on weight loss History of anemia, followed and managed by primary care physician Clinical Quality Measures DVT/VTE Risk/Contraindication: Risk Factor Score Per Nursin RFS Level Per Nursing on Admit: 4+=Very High DEVI LONDON MD Dec 23, 2018 08:31 POS
[2018-12-23] MEDS: SENNA W/DOCUSATE (SENOKOT S) TABLET PO SCH ×2 (08:37→20:23)
[2018-12-23] MEDS: BUMETANIDE 1 MG (BUMEX) TAB PO SCH (08:37)
[2018-12-23] MEDS: CARVEDILOL 12.5 MG (COREG) TABLET PO SCH ×2 (08:37→20:24)
[2018-12-23] MEDS: FERROUS SULF 325 MG (IRON) TAB PO SCH (08:37)
[2018-12-23] MEDS: LORATADINE (CLARITIN) 10 MG TAB PO SCH (08:37)
[2018-12-23] MEDS: CLOPIDOGREL 75 MG (PLAVIX) TABLET PO SCH (08:37)
[2018-12-23] MEDS: ENOXAPARIN 40 MG/0.4 ML (LOVENOX) SYR SC SCH ×2 (08:38→20:24)
[2018-12-23] MEDS: TOLTERODINE LA 4 MG (DETROL) CAP PO SCH (08:38)
[2018-12-23] MEDS: ALLOPURINOL 100 MG (ZYLOPRIM) TAB PO SCH (08:38)
--- NOTE | 2018-12-23 08:41 | Progress Note ---
Subjective Date Seen by a Provider: Dec 23, 2018 Time Seen by a Provider: 07:15 Subjective/Events-last exam * Pt reports not being able to sleep at all last night due to chronic back pain. * She states she normally sleeps in a special recliner at the residential and cannot sleep in a bed. * She reports having trouble getting her breathing treatments due to bad timing (they came at breakfast and dinner) * She only got one treatment yesterday in the afternoon and had one at 0300 this morning * She reports having less cough and nothing has been coming up as well * She reports having indigestion yesterday * She denies being SOB, but did state that last night after a trip to the bathroom she did get short of breath because she did not have her O2 nasal cannula on * She reports having a headache today Review of Systems General: No Chills HEENT: Head Aches Pulmonary: Cough Cardiovascular: No: Chest Pain, Palpitations Gastrointestinal: Other (Indigestion); No: Nausea, Vomiting, Abdominal Pain Focused Exam Lactate Level 12/21/18 11:10: Lactic Acid Level 1.22 Respiratory: Chest Non Tender, No Accessory Muscle Use, No Respiratory Distress, Expiration, Wheezing Cardiovascular: Regular Rate, Rhythm; No No Edema; No Murmur, Normal Peripheral Pulses Peripheral Pulses: 2+ Dorsalis Pedis (R), 2+ Left Dors-Pedis (L), 2+ Radial Pulses (R), 2+ Radial Pulses (L) Skin: normal color, warm/dry Objective Exam Last Set of Vital Signs Vital Signs Date Time Temp Pulse Resp B/P (MAP) Pulse Ox O2 Delivery O2 Flow Rate FiO2 12/23/18 07:45 94 Nasal Cannula 3.00 12/23/18 04:55 36.4 72 18 170/72 (104) 12/21/18 11:34 28 Capillary Refill : Less Than 3 Seconds I&O Intake and Output 12/23/18 00:00 Intake Total 2627.5 ml Output Total 1100 ml Balance 1527.5 ml Intake Oral 1100 ml IV Total 1527.5 ml Output Urine Total 1100 ml General: Alert, Oriented X3, Mild Distress Lungs: Other (Expiratory wheeze bilateral lower lobes) Extremities: No Cyanosis, Normal Pulses, Other (Pedal edema) Neuro: Normal Speech, Normal Tone Psych/Mental Status: Mental Status NL, Mood NL Results Lab Laboratory Tests 12/22/18 09:15: White Blood Count 7.7, Red Blood Count 4.22L, Hemoglobin 13.3, Hematocrit 40, Mean Corpuscular Volume 95, Mean Corpuscular Hemoglobin 32, Mean Corpuscular Hemoglobin Concent 33, Red Cell Distribution Width 13.1, Platelet Count 184, Mean Platelet Volume 10.9H, Neutrophils (%) (Auto) 89H, Lymphocytes (%) (Auto) 9L, Monocytes (%) (Auto) 1, Eosinophils (%) (Auto) 0, Basophils (%) (Auto) 0, Neutrophils # (Auto) 6.9, Lymphocytes # (Auto) 0.7L, Monocytes # (Auto) 0.1, Eosinophils # (Auto) 0.0, Basophils # (Auto) 0.0, Neutrophils % (Manual) 86, Lymphocytes % (Manual) 10, Monocytes % (Manual) 1, Eosinophils % (Manual) 0, Basophils % (Manual) 0, Band Neutrophils 3, Blood Morphology Comment NORMAL, Sodium Level 139, Potassium Level 4.0, Chloride Level 103, Carbon Dioxide Level 25, Anion Gap 11, Blood Urea Nitrogen 12, Creatinine 0.86, Estimat Glomerular Filtration Rate > 60, BUN/Creatinine Ratio 14, Glucose Level 193H, Calcium Level 9.1, Phosphorus Level 2.6, Magnesium Level 1.7, B-Type Natriuretic Peptide 112.2H 12/22/18 11:30: Vancomycin Level Trough 29.7*H Microbiology 12/21/18 Blood Culture - Preliminary, Resulted No growth 12/21/18 MRSA Screen - Final, Complete MRSA not isolated 12/21/18 Urine Culture - Final, Complete 3 or more isolates Assessment/Plan Assessment/Plan Assess & Plan/Chief Complaint Assessment: Pneumonia COPD CHF DM2 Plan: Continue meropenem, vancomycin Continue 3 L O2 per nasal cannula, nebulizer treatment, monitor O2 sat, SOB Continue home medications for chronic conditions Continue DVT prophylaxis Clinical Quality Measures DVT/VTE Risk/Contraindication: Risk Factor Score Per Nursin RFS Level Per Nursing on Admit: 4+=Very High STEVENEDUARD [employer] [facility] Dec 23, 2018 08:41 POS
[2018-12-23] MEDS: ENALAPRIL 2.5 MG (VASOTEC) TAB PO SCH (08:43)
[2018-12-23] MEDS: DULoxetine 30 MG (CYMBALTA) CAP PO SCH (08:43)
[2018-12-23 09:07] LABS: BASOPHILS % (AUTO) 0 % (0-10); EOSINOPHILS % (AUTO) 0 % (0-10); HEMATOCRIT 40 % (35-52); HEMOGLOBIN 13.4 G/DL (11.5-16.0); LYMPHOCYTES # (AUTO) 0.8 X 10^3 (1.0-4.0); LYMPHOCYTES % (AUTO) 7 % (12-44); MEAN CORPUSCULAR HEMOGLOBIN 31 PG (25-34); MEAN CORPUSCULAR HGB CONC 33 G/DL (32-36); MEAN CORPUSCULAR VOLUME 94 FL (80-99); MEAN PLATELET VOLUME 10.7 FL (7.4-10.4); MONOCYTES # (AUTO) 0.4 X 10^3 (0.0-1.0); MONOCYTES % (AUTO) 3 % (0-12); NEUTROPHILS # (AUTO) 10.2 X 10^3 (1.8-7.8); NEUTROPHILS % (AUTO) 90 % (42-75); PLATELET COUNT 213 10^3/uL (130-400); RED CELL DISTRIBUTION WIDTH 13.3 % (10.0-14.5); WHITE BLOOD COUNT 11.4 10^3/uL (4.3-11.0)
[2018-12-23 09:26] LABS: ALBUMIN 3.6 GM/DL (3.2-4.5); BILIRUBIN,TOTAL 0.7 MG/DL (0.1-1.0); CALCIUM 9.6 MG/DL (8.5-10.1); CREATININE SERUM 0.99 MG/DL (0.60-1.30); POTASSIUM 3.7 MMOL/L (3.6-5.0); TOTAL PROTEIN 6.1 GM/DL (6.4-8.2)
--- NOTE | 2018-12-23 10:32 | Progress Note - Hospitalist ---
[facility] 12/23/18 1032: Subjective HPI/CC On Admission Date Seen by Provider: Dec 23, 2018 Time Seen by Provider: 07:15 CC: Wheezing HPI: This is a 73yoWF clinic pt of mine who resides at [facility] who presented to the hospital for failed antibiotic treatment and presumed pneumonia with wheezing and respiratory insufficiency after she failed Cefdinir antibiotic breathing treatments and antitussives at home. She has been requiring oxygen 24/7 of which she doesn't usually use except for at night because she can't tolerate CPAP. She at this current time was unable to get up and around to shower because she just doesn't feel like it. Her lungs are wheezing B/L and pt is high risk for respiratory insufficiency. I did update Dr. Andrew and Dr. Carbajal of theadmission status. Subjective/Events-last exam * Pt reports not being able to sleep at all last night due to chronic back pain. * She states she [facility] and cannot sleep in a bed. * She reports having trouble getting her breathing treatments due to bad timing (they came at breakfast and dinner) * She only got one treatment yesterday in the afternoon and had one at 0300 this morning * She reports having less cough and nothing has been coming up as well * She reports having indigestion yesterday * She denies being SOB, but did state that last night after a trip to the bathroom she did get short of breath because she did not have her O2 nasal cannula on * She reports having a headache today Review of Systems General: No Chills Pulmonary: Dyspnea, Cough Cardiovascular: No: Chest Pain, Palpitations Gastrointestinal: No: Nausea, Vomiting, Abdominal Pain Musculoskeletal: back pain Focused Exam Lactate Level 12/21/18 11:10: Lactic Acid Level 1.22 Respiratory: Chest Non Tender, No Accessory Muscle Use, No Respiratory Distress, Expiration, Wheezing Cardiovascular: Regular Rate, Rhythm, No Murmur, Normal Peripheral Pulses Peripheral Pulses: 2+ Dorsalis Pedis (R), 2+ Left Dors-Pedis (L), 2+ Radial Pulses (R), 2+ Radial Pulses (L) Skin: normal color, warm/dry Objective Exam Vital Signs Vital Signs Date Time Temp Pulse Resp B/P (MAP) Pulse Ox O2 Delivery O2 Flow Rate FiO2 12/23/18 09:00 94 Nasal Cannula 3.00 12/23/18 08:00 36.2 63 18 131/62 (85) 12/21/18 11:34 28 Capillary Refill : Less Than 3 Seconds General Appearance: WD/WN, Mild Distress Respiratory: Chest Non Tender, No Accessory Muscle Use, No Respiratory Distress, Expiration, Wheezing Cardiovascular: Regular Rate, Rhythm, No Murmur, Normal Peripheral Pulses Extremity: Non Tender, No Calf Tenderness, Pedal Edema Neurologic/Psychiatric: Alert, Oriented x3, Normal Mood/Affect Skin: Normal Color, Warm/Dry Results/Procedures Lab Laboratory Tests 12/23/18 08:45 Patient resulted labs reviewed. Assessment/Plan Assessment and Plan Assess & Plan/Chief Complaint Assessment: Pneumonia COPD CHF DM2 Newly elevated WBC 11.4 Plan: Continue meropenem, vancomycin Continue 3 L O2 per nasal cannula, nebulizer treatment, monitor O2 sat, SOB Continue home medications for chronic conditions Continue DVT prophylaxis Clinical Quality Measures DVT/VTE Risk/Contraindication: Risk Factor Score Per Nursin RFS Level Per Nursing on Admit: 4+=Very High CLARE MADERA DO 12/23/18 1215: Subjective Subjective/Events-last exam Patient doing much better Maintain on vancomycin and meropenem Conferred with Dr. Andrew We'll decrease steroids to help with the insomnia Overall doing pretty well Review of Systems Pulmonary: Dyspnea, Cough Objective Exam General Appearance: No Apparent Distress Respiratory: Crackles, Decreased Breath Sounds, Wheezing Neurologic/Psychiatric: Alert, Oriented x3, No Motor/Sensory Deficits, Normal Mood/Affect Assessment/Plan Assessment and Plan Assess & Plan/Chief Complaint Continue antibiotics Continue steroids but decreased dose Home meds Diagnosis/Problems Diagnosis/Problems (1) Pneumonia (2) COPD exacerbation Status: Resolved (3) LEIGHANN (acute kidney injury) Status: Resolved Resolution Date/Time: 02/20/18 @ 18:58 (4) Essential (primary) hypertension Status: Chronic (5) Obesity hypoventilation syndrome Status: Chronic (6) VALDO on CPAP Status: Resolved Resolution Date/Time: 02/20/18 @ 18:58 (7) Severe pain Status: Chronic Supervisory-Addendum Brief Verification & Attestation Participated in pt care: history, MDM, physical Personally performed: exam, history, MDM, supervision of care Care discussed with: Medical Student Procedures: n/a Results interpretation: Verified all documentation Verification and Attestation of Medical Student E/M Service A medical student performed and documented this service in my presence. I reviewed and verified all information documented by the medical student and made modifications to such information, when appropriate. I personally performed the physical exam and medical decision making. Clare Madera, Dec 23, 2018,12:14 [facility] Dec 23, 2018 10:32 CLARE CHADWICK DO Dec 23, 2018 12:15 POS
--- NOTE | 2018-12-23 10:47 | Pulmonary Progress Note ---
Subjective Time Seen by a Provider: 10:47 Subjective/Events-last exam Pt appears to be doing much better. Sepsis Event Evaluation Height, Weight, BMI Height: 5'4.00" Weight: 270lbs. 9.0oz. 122.170498hb; 43.72 BMI Method:Stated Focused Exam Lactate Level 12/21/18 11:10: Lactic Acid Level 1.22 Exam Exam Vital Signs Date Time Temp Pulse Resp B/P (MAP) Pulse Ox O2 Delivery O2 Flow Rate FiO2 12/23/18 09:00 94 Nasal Cannula 3.00 12/23/18 08:00 36.2 63 18 131/62 (85) 94 Nasal Cannula 3.00 12/23/18 07:45 94 Nasal Cannula 3.00 12/23/18 04:55 36.4 72 18 170/72 (104) 93 Nasal Cannula 3.00 12/23/18 01:52 91 Nasal Cannula 3.00 12/22/18 23:35 36.8 86 18 170/73 (105) 92 Nasal Cannula 3.00 12/22/18 21:30 92 Nasal Cannula 3.00 12/22/18 21:30 Nasal Cannula 3.00 12/22/18 19:38 36.7 86 18 165/73 (103) 95 Nasal Cannula 3.00 12/22/18 16:19 88 20 142/64 (90) 95 Nasal Cannula 3.00 12/22/18 15:22 92 Nasal Cannula 3.00 12/22/18 12:00 36.7 82 18 96 Nasal Cannula 3.00 I & O 12/23/18 07:00 Intake Total 1240 ml Output Total 1600 ml Balance -360 ml Height & Weight Height: 5'4.00" Weight: 270lbs. 9.0oz. 122.870767zb; 43.72 BMI Method:Stated General Appearance: WD/WN, Mild Distress HEENT: PERRL/EOMI, Normal ENT Inspection, Pharynx Normal Neck: Full Range of Motion, Non Tender, Supple Respiratory: Chest Non Tender, No Accessory Muscle Use, No Respiratory Distress, Expiration, Wheezing Cardiovascular: Regular Rate, Rhythm, No Murmur, Normal Peripheral Pulses Capillary Refill: Less Than 3 Seconds Peripheral Pulses: 2+ Dorsalis Pedis (R), 2+ Left Dors-Pedis (L), 2+ Radial Pulses (R), 2+ Radial Pulses (L) Gastrointestinal: normal bowel sounds, non tender, soft Extremity: Non Tender, No Calf Tenderness, Pedal Edema Neurologic/Psychiatric: Alert, Oriented x3, Normal Mood/Affect Skin: Normal Color, Warm/Dry Lymphatic: No Adenopathy Results Lab Laboratory Tests 12/21/18 11:10 12/22/18 09:15 12/23/18 08:45 Assessment/Plan Assessment/Plan Acute respiratory distress with hypoxia - much improved - CT of chest without contrast - shows atelectasis and signs of acute bronchitis -Pt feels improved PNA - failed out pt treatment -I reviewed previous cultures pt has hx of MRSA and ESBL -Currently on vanco and Merrem -MRSA swab is neg UTI -Cultures pending Acute bronchitis/AsthmaAE -Solumedrol 40 IV Q 6 -decrease to Q 12 -Duoneb Obesity with OHS and VALDO -Noncompliant with home vent to mask Atelectasis -SVNs -IS Allergic rhinitis -claritin, singulair CHF, Nonischemic cardiomyopathy JORGE DORADO DO Dec 23, 2018 10:47 POS
[2018-12-23] MEDS: KCL 10 MEQ TAB (MICRO K) PO SCH ×2 (11:27→17:13)
[2018-12-23] MEDS: HYDROXYCHLOROQUINE 200 MG (PLAQUENIL) TAB PO SCH ×2 (11:28→17:13)
[2018-12-23] MEDS: VANCOMYCIN 1,750 MG/NS 500 ML IVPB IV SCH ×2 (11:28)
[2018-12-23 12:00] VITALS: BP 107/66
--- NOTE | 2018-12-23 13:12 | Physical Therapy Evaluation ---
PT Evaluation-General Medical Diagnosis Admission Date Dec 21, 2018 at 10:39 Medical Diagnosis: pneumonia Onset Date: Dec 21, 2018 Therapy Diagnosis Therapy Diagnosis: weakness Height/Weight Height (Feet): 5 Height (Inches): 4.00 Weight (Pounds): 270 Weight (Ounces): 9.0 Precautions Precautions/Isolations: Fall Prevention, Standard Precautions Referral Physician: Karma Reason for Referral: Evaluation/Treatment Medical History Pertinent Medical History: Arthritis, CAD, COPD, DM, GERD, HTN, Neuropathy, Rheumatoid Arthritis Current History Direct admit secondary to SOA Reviewed History: Yes Social History Home: Assisted Living Prior Prior Level of Function SCALE: Activities may be completed with or without assistive devices. 0-Qypeeoqdpi-xyqvijh completes the activity by him/herself with no assistance from a helper. 5-Set-up or Clean-up Assistance-helper sets up or cleans up; patient completes activity. [place] assists only prior to or following the activity. 4-Supervision or Touching Assistance-helper provides verbal cues and/or touching/steadying and/or contact guard assistance as patient completes activity. Assistance may be provided throughout the activity or intermittently. 3-Partial/Moderate Assistance-helper does LESS THAN HALF the effort. [place] lifts, holds or supports trunk or limbs, but provides less than half the effort. 2-Substantial/Maximal Assistance-helper does MORE THAN HALF the effort. [place] lifts or holds trunk or limbs and provides more than half the effort. 5-Uamkczqxh-wnvouo does ALL the effort. Patient does none of the effort to complete the activity. Or, the assistance of 2 or more helpers is required for the patient to complete the activity. If activity was not attempted, code reason: 7-Patient Refused. 9-Not Applicable-not attempted and the patient did not perform the activity before the current illness, exacerbation or injury. 10-Not Attempted due to Environmental Limitations-(lack of equipment, weather restraints, etc.). 88-Not Attempted due to Medical Conditions or Safety Concerns. Bed Mobility: 5 Transfers (B,C,W/C): 5 Gait: 5 Indoor Mobility (Ambulation): Independent Stairs: Not [place] Prior Devices Use: Manual wheelchair, Walker PT Evaluation-Current Subjective Patient agrees to PT at this time. Patient reports that she does not walk anymore and only uses wheelchair for mobility. Patient reports she has pain in her low back. Pain Numeric Pain Scale: 7 Location: Lower Location Body Site: Back Pain Description: Ache Objective Patient Orientation: Normal For Age Problem Solving: Fair Attachments: Oxygen (3L), IV ROM/Strength ROM Lower Extremities WFL Strength Lower Extremities Grossly 3/5 Integumentary/Posture Integumentary See nursing notes Bowel Incontinence: No Bladder Incontinence: No Posture kyphotic, head forward and flexed Neuromuscular (Tone, Coordination, Reflexes) grossly intact Sensory Vision: Functional Hearing: Functional Transfers Sit to Stand (QC): 6 Gait Does the Patient Walk?: Yes Mode of Locomotion: Walk Anticipated Mode of Locomotion: Both Walk 10 feet (QC): 4 Walk 50 ft with 2 Turns(QC): 4 Distance: 125' Gait Assistive Device: FWW Comments/Gait Description Step through pattern, kyphotic posture with head forward and flexed, reported SOB during ambulation Wheelchair Training Does the Pt Use a Wheelchair?: Yes Type of Wheelchair: Manual Balance Sitting Static: Normal Sitting Dynamic: Normal Standing Static: Normal Standing Dynamic: Normal Assessment/Needs Patient able to stand from chair independently. Patient ambulated 125' with FWW and assistance without difficulty. Patient reported SOB upon returning to room with 4L O2. O2 sats measured at 90% initially and increased to 97% with a couple deep breaths. Patient reminded to take deep breaths while exercising and encourage to walk more than use wheelchair. Patient reported feel better after a minute of rest. Patient in chair with lunch at conclusion of treatment. Rehab Potential: Fair PT [employer] Goals [employer] Maker Goals PT [facility] Goals Time Frame: Jan 02, 2019 Sit to Lying (QC): 5 Lying-Sitting on Side/Bed(QC): 5 Sit to Stand (QC): 6 Roll Left to Right (QC): 5 Chair/Fnu-xc-Jifnl Xfer(QC): 5 Does the Patient Walk: Yes Distance: 200' Walk 10 feet (QC): 5 Walk 10ft-Uneven Surface(QC): 5 Walk 50ft with 2 Turns (QC): 5 Walk 150 ft (QC): 5 Gait Assistive Device: FWW PT Plan Problem List Problem List: Activity Tolerance, Functional Strength, Safety, Balance, Gait, Transfer, Bed Mobility Treatment/Plan Treatment Plan: Continue Plan of Care Treatment Plan: Bed Mobility, Education, Functional Activity [place], Functional Strength, Gait, Safety, Therapeutic Exercise, Transfers Treatment Duration: Jan 02, 2019 Frequency: 6 times per week Estimated Hrs Per Day: .25 hour per day Patient and/or Family Agrees t: Yes Safety Risks/Education Patient Education: Gait Training, Safety Issues Teaching Recipient: Patient Teaching Methods: Discussion Response to Teaching: Verbalize Understanding Time/GCodes Time In: 1245 Time Out: 1259 Total Billed Treatment Time: 14 Total Billed Treatment 1 visit EVLowC 14min GARO NICK PT Dec 23, 2018 13:12 POS
[2018-12-23 13:13] VITALS: BP 107/66
--- NOTE | 2018-12-23 14:25 | Occupational Therapy Eval ---
OT Evaluation-General/PLF Medical Diagnosis Admission Date Dec 21, 2018 at 10:39 Medical Diagnosis: pneumonia Onset Date: Dec 21, 2018 Therapy Diagnosis Therapy Diagnosis: decreased self care skills Height/Weight Height (Feet): 5 Height (Inches): 4.00 Weight (Pounds): 270 Weight (Ounces): 9.0 Precautions Precautions/Isolations: Fall Prevention, Standard Precautions Safety Interventions: None Referral Physician: Karma Medical History Pertinent Medical History: Arthritis, CAD, COPD, DM, GERD, HTN, Neuropathy, Rheumatoid Arthritis Additional Medical History CHF, lymphedema, sleep apnea, renal failure, DDD, chronic back pain, breast cancer, anxiety, depression. Social History Home: Assisted Living ADL-Prior Level of Function SCALE: Activities may be completed with or without assistive devices. 2-Bkeoypvdzz-wynhoed completes the activity by him/herself with no assistance from a helper. 5-Set-up or Clean-up Assistance-helper sets up or cleans up; patient completes activity. [place] assists only prior to or following the activity. 4-Supervision or Touching Assistance-helper provides verbal cues and/or touching/steadying and/or contact guard assistance as patient completes activity. Assistance may be provided throughout the activity or intermittently. 3-Partial/Moderate Assistance-helper does LESS THAN HALF the effort. [place] lift s, holds or supports trunk or limbs, but provides less than half the effort. 2-Substantial/Maximal Assistance-helper does MORE THAN HALF the effort. [place] lifts or holds trunk or limbs and provides more than half the effort. 6-Gwxdwrwji-nwwmhw does ALL the effort. Patient does none of the effort to complete the activity. Or, the assistance of 2 or more helpers is required for the patient to complete the activity. If activity was not attempted, code reason: 7-Patient Refused. 9-Not Applicable-not attempted and the patient did not perform the activity before the current illness, exacerbation or injury. 10-Not Attempted due to Environmental Limitations-(lack of equipment, weather restraints, etc.). 88-Not Attempted due to Medical Conditions or Safety Concerns. ADL PLOF Comments Pt reports having assist for bathing, but states she can complete other basic self care skills. Uses a w/c for mobility. Assisted living provides meals, laundry, medication set up, and housekeeping services. Self Care: Needed Some Help OT Current Status Subjective Pt sitting in chair, agrees to therapy. Pt reports7.5/10 back pain. Mental Status/Objective Patient Orientation: Person, Place Attachments: IV, Oxygen Current Glasses/Contacts: Yes Hearing Aids: No Upper Extremity ROM Decreased right shoulder ROM. Pt states she was scheduled for rotator cuff surgery, but was admitted to hospital so surgery was cancelled. Left UE grossly functional. Upper Extremity Coordination Intact ADL-Treatment ADL-Current Pt sitting in chair, participated in UE assessment while seated. Pt has just finished lunch and states she was able to complete without assist. Pt states she has already completed bathing and grooming tasks today and was recently up to restroom. Pt states she will get back into bed soon, but is waiting for a new mattress. Pt declined ADL activity at this time. Education provided regarding role of OT and plan of care. Pt states understanding of education and has no questions or concerns at this time. All needs met. Eating (QC): 6 (per report) Education OT Patient Education: Rehab process Teaching Recipient: Patient Teaching Methods: Discussion Response to Teaching: Verbalize Understanding OT Short Term Goals Short Term Goals 1=Demonstrate adherence to instructed precautions during ADL tasks. 2=Patient will verbalize/demonstrate understanding of assistive devices/modifications for ADL. 3=Patient will improve strength/tolerance for activity to enable patient to perform ADL's. OT Settlement Agent Goals Settlement Agent Goals Time Frame: Jan 06, 2019 Oral Hygiene (QC): 6 Upper Body Dressing (QC): 5 Lower Body Dressing (QC): 4 Toileting Hygiene (QC): 5 Toilet/Commode Transfer (QC): 5 Additional Goals: 1-Demonstrate ADL Tasks, 2-Verbalize Understanding, 3- ImproveStrength/[place] 1=Demonstrate adherence to instructed precautions during ADL tasks. 2=Patient will verbalize/demonstrate understanding of assistive devices/modifications for ADL. 3=Patient will improve strength/tolerance for activity to enable patient to perform ADL's. OT Education/Plan Problem List/Assessment Assessment: Decreased Activ Tolerance, Decreased Safety Aware, Dependent Transfers, Impaired I ADL's, Impaired Self-Care Skills Pt to benefit from skilled OT intervention while hospitalized to maximize level of independence and allow safe discharge. Discharge Recommendations Plan/Recommendations: Continue POC Treatment Plan/Plan of Care Treatment,Training & Education: Yes Patient would benefit from OT for education, treatment and training to promote independence in ADL's, mobility, safety and/or upper extremity function for ADL's. Plan of Care: ADL Retraining, Functional Mobility, UE Funct Exercise/Act Treatment Duration: Jan 06, 2019 Frequency: 5 times per week Estimated Hrs Per Day: .25 hour per day Rehab Potential: Fair Time/GCodes Start Time: 13:56 Stop Time: 14:09 Total Time Billed (hr/min): 13 Billed Treatment Time 1 visit, YANIQUE(13minutes) JYOTI ALFONSO OT Dec 23, 2018 14:25 POS
[2018-12-23] MEDS: TRIAMCINOLONE 0.1% CR (KENALOG) 15 GM TUBE TP PRN ×2 (14:45→22:02)
[2018-12-23 16:00] VITALS: BP 167/73
[2018-12-23 20:00] VITALS: BP 158/70
[2018-12-23] MEDS: VITAMIN D3 1,000 UNITS (CHOLECALCIFEROL) TABLET PO SCH (20:23)
[2018-12-23] MEDS: PANTOPRAZOLE 40 MG (PROTONIX) TAB PO SCH (20:24)
[2018-12-23] MEDS: GABAPENTIN 300 MG (NEURONTIN) CAP PO SCH (20:24)
[2018-12-23] MEDS: toPIRamate 25 MG (TOPAMAX) TAB PO SCH (20:24)
[2018-12-23] MEDS: MONTELUKAST 10 MG (SINGULAIR) TAB PO SCH (20:24)
[2018-12-23] MEDS: SIMvastatin 20 MG (ZOCOR) TAB PO SCH (20:24)
[2018-12-24] VITALS: BP 176/79
[2018-12-24] MEDS: MEROPENEM 500 MG in WATER (STERILE) FOR INJECTION 10 ML IV SCH ×4 (00:03→17:54)
[2018-12-24] MEDS: RT-ALBUTEROL/IPRATROPIUM 3 ML (DUONEB) VIAL INH SCH ×6 (03:26→22:13)
[2018-12-24 04:00] VITALS: BP 155/69
[2018-12-24] MEDS: ASCORBIC ACID (VIT C) 500 MG TABLET PO SCH (05:36)
--- NOTE | 2018-12-24 06:51 | Pulmonary Progress Note ---
Subjective Time Seen by a Provider: 06:51 Subjective/Events-last exam No complications noted. Sepsis Event Evaluation Height, Weight, BMI Height: 5'4.00" Weight: 270lbs. 9.0oz. 122.864724vf; 43.72 BMI Method:Stated Focused Exam Lactate Level 12/21/18 11:10: Lactic Acid Level 1.22 Exam Exam Vital Signs Date Time Temp Pulse Resp B/P (MAP) Pulse Ox O2 Delivery O2 Flow Rate FiO2 12/24/18 04:00 36.3 71 14 155/69 (97) 92 Nasal Cannula 3.00 12/24/18 03:27 Nasal Cannula 3.00 12/24/18 00:00 36.6 71 18 176/79 (111) 97 Nasal Cannula 3.00 12/23/18 23:15 Nasal Cannula 3.00 12/23/18 21:43 Nasal Cannula 3.00 12/23/18 20:00 36.6 81 20 158/70 (99) 96 Nasal Cannula 3.00 12/23/18 19:07 Nasal Cannula 3.00 12/23/18 16:00 36.8 74 20 167/73 (104) 95 Nasal Cannula 3.00 12/23/18 14:48 95 Nasal Cannula 3.00 12/23/18 13:13 36.5 78 92 32 12/23/18 12:00 36.5 78 18 107/66 (80) 92 Nasal Cannula 3.00 12/23/18 10:46 91 Nasal Cannula 3.00 12/23/18 09:00 94 Nasal Cannula 3.00 12/23/18 08:00 36.2 63 18 131/62 (85) 94 Nasal Cannula 3.00 12/23/18 07:45 94 Nasal Cannula 3.00 I & O 12/24/18 07:00 Intake Total 2587.5 ml Output Total 1430 ml Balance 1157.5 ml Height & Weight Height: 5'4.00" Weight: 270lbs. 9.0oz. 122.415585xj; 43.72 BMI Method:Stated General Appearance: No Apparent Distress HEENT: PERRL/EOMI, Normal ENT Inspection, Pharynx Normal Neck: Full Range of Motion, Non Tender, Supple Respiratory: Crackles, Decreased Breath Sounds, Wheezing Cardiovascular: Regular Rate, Rhythm, No Murmur, Normal Peripheral Pulses Capillary Refill: Less Than 3 Seconds Peripheral Pulses: 2+ Dorsalis Pedis (R), 2+ Left Dors-Pedis (L), 2+ Radial Pulses (R), 2+ Radial Pulses (L) Gastrointestinal: normal bowel sounds, non tender, soft Extremity: Non Tender, No Calf Tenderness, Pedal Edema Neurologic/Psychiatric: Alert, Oriented x3, No Motor/Sensory Deficits, Normal Mood/Affect Skin: Normal Color, Warm/Dry Lymphatic: No Adenopathy Results Lab Laboratory Tests 12/22/18 09:15 12/23/18 08:45 Assessment/Plan Assessment/Plan Acute respiratory distress with hypoxia - much improved - CT of chest without contrast - shows atelectasis and signs of acute bronchitis -Pt feels improved PNA - failed out pt treatment -I reviewed previous cultures pt has hx of MRSA and ESBL -Currently on vanco and Merrem -MRSA swab is neg UTI -Cultures pending Acute bronchitis/AsthmaAE -Solumedrol 40 IV Q 6 -decrease to Q 12 -Duoneb Obesity with OHS and VALDO -Noncompliant with home vent to mask Atelectasis -SVNs -IS Allergic rhinitis -claradamaris singulair CHF, Nonischemic cardiomyopathy JORGE DORADO DO Dec 24, 2018 06:51 POS
[2018-12-24 08:00] VITALS: BP 179/80
[2018-12-24] MEDS: CLOPIDOGREL 75 MG (PLAVIX) TABLET PO SCH (08:56)
[2018-12-24] MEDS: ALLOPURINOL 100 MG (ZYLOPRIM) TAB PO SCH (08:56)
[2018-12-24] MEDS: TOLTERODINE LA 4 MG (DETROL) CAP PO SCH (08:57)
[2018-12-24] MEDS: DULoxetine 30 MG (CYMBALTA) CAP PO SCH (08:57)
[2018-12-24] MEDS: LORATADINE (CLARITIN) 10 MG TAB PO SCH (08:57)
[2018-12-24] MEDS: ENALAPRIL 2.5 MG (VASOTEC) TAB PO SCH (08:57)
[2018-12-24] MEDS: BUMETANIDE 1 MG (BUMEX) TAB PO SCH (08:57)
[2018-12-24] MEDS: ENOXAPARIN 40 MG/0.4 ML (LOVENOX) SYR SC SCH ×2 (08:58→20:21)
[2018-12-24] MEDS: FERROUS SULF 325 MG (IRON) TAB PO SCH (08:58)
[2018-12-24] MEDS: SENNA W/DOCUSATE (SENOKOT S) TABLET PO SCH ×2 (08:58→20:21)
[2018-12-24] MEDS: methylPREDNISolone 40 MG/ML (Solu-MEDROL) VIAL IV SCH ×2 (08:58→20:21)
[2018-12-24] MEDS: TRIAMCINOLONE 0.1% CR (KENALOG) 15 GM TUBE TP PRN (08:59)
[2018-12-24] MEDS: CARVEDILOL 12.5 MG (COREG) TABLET PO SCH ×2 (09:01→20:20)
[2018-12-24] MEDS: RT-ADVAIR HFA 115/21 MCG PER PUFF IH SCH ×2 (10:09→18:49)
[2018-12-24] MEDS: VANCOMYCIN 1,750 MG/NS 500 ML IVPB IV SCH ×2 (11:48)
[2018-12-24] MEDS: KCL 10 MEQ TAB (MICRO K) PO SCH ×2 (11:49→17:54)
[2018-12-24] MEDS: HYDROXYCHLOROQUINE 200 MG (PLAQUENIL) TAB PO SCH ×2 (11:49→17:54)
[2018-12-24 12:00] VITALS: BP 140/65
--- NOTE | 2018-12-24 12:15 | Physical Therapy Daily Note ---
PT Daily Note-Current Subjective Pt reported that she was ready to get up and walk. Mental Status Patient Orientation: Person, Place, Time, Situation Attachments: Oxygen Transfers SCALE: Activities may be completed with or without assistive devices. 9-Oypjxyulji-xgazvro completes the activity by him/herself with no assistance from a helper. 5-Set-up or Clean-up Assistance-helper sets up or cleans up; patient completes activity. [place] assists only prior to or following the activity. 4-Supervision or Touching Assistance-helper provides verbal cues and/or touching/steadying and/or contact guard assistance as patient completes activit y. Assistance may be provided throughout the activity or intermittently. 3-Partial/Moderate Assistance-helper does LESS THAN HALF the effort. [place] lifts, holds or supports trunk or limbs, but provides less than half the effort. 2-Substantial/Maximal Assistance-helper does MORE THAN HALF the effort. [place] lifts or holds trunk or limbs and provides more than half the effort. 5-Fgrezoxlf-ulaxsl does ALL the effort. Patient does none of the effort to complete the activity. Or, the assistance of 2 or more helpers is required for the patient to complete the activity. If activity was not attempted, code reason: 7-Patient Refused. 9-Not Applicable-not attempted and the patient did not perform the activity before the current illness, exacerbation or injury. 10-Not Attempted due to Environmental Limitations-(lack of equipment, weather restraints, etc.). 88-Not Attempted due to Medical Conditions or Safety Concerns. Transfers (B, C, W/C): 6 Sit to Stand (QC): 6 Bed to/from Chair: 6 Gait Training Does the Patient Walk?: Yes Gait: 6 Distance: 200ft Walk 10 feet (QC): 6 Walk 50 ft with 2 Turns(QC): 6 Walk 150 ft (QC): 6 Gait Persons Needed: 1 Gait Assistive Device: FWW Exercises Seated Therapy Exercises: LE Protocol Seated Reps: 20 Assessment Good stability and safety awareness during gait. PT [employer] Goals Group Home Goals PT [employer] Goals Time Frame: Jan 02, 2019 Sit to Lying (QC): 5 Lying-Sitting on Side/Bed(QC): 5 Sit to Stand (QC): 6 Roll Left to Right (QC): 5 Chair/Hnb-hw-Qbobx Xfer(QC): 5 Does the Patient Walk: Yes Distance: 200' Walk 10 feet (QC): 5 Walk 10ft-Uneven Surface(QC): 5 Walk 50ft with 2 Turns (QC): 5 Walk 150 ft (QC): 5 Gait Assistive Device: FWW PT Plan Treatment/Plan Treatment Plan: Continue Plan of Care Treatment Plan: Bed Mobility, Education, Functional Activity [place], Functional Strength, Gait, Safety, Therapeutic Exercise, Transfers Treatment Duration: Jan 02, 2019 Frequency: 6 times per week Estimated Hrs Per Day: .25 hour per day Patient and/or Family Agrees t: Yes Time/GCodes Time In: 1005 Time Out: 1020 Total Billed Treatment Time: 15 Total Billed Treatment 1, gt 15 HARELY HEWITT PT Dec 24, 2018 12:15 POS
--- NOTE | 2018-12-24 13:21 | Progress Note - Hospitalist ---
Subjective HPI/CC On Admission Date Seen by Provider: Dec 24, 2018 Time Seen by Provider: 12:15 CC: Wheezing HPI: This is a 73yoWF clinic pt of mine who resides at [facility] who presented to the hospital for failed antibiotic treatment and presumed pneumonia with wheezing and respiratory insufficiency after she failed Cefdinir antibiotic breathing treatments and antitussives at home. She has been requiring oxygen 24/7 of which she doesn't usually use except for at night because she can't tolerate CPAP. She at this current time was unable to get up and around to shower because she just doesn't feel like it. Her lungs are wheezing B/L and pt is high risk for respiratory insufficiency. I did update Dr. Andrew and Dr. Carbajal of theadmission status. Subjective/Events-last exam Patient doing much better Slept better last night No bowel movement yet but taking medication and she does not want anything extra Overall improved Checked meds and labs Conferred with RN Denies any pain Wrapping of the lower extremities was completed by the nursing students Review of Systems General: Fatigue Pulmonary: Dyspnea, Cough Objective Exam Vital Signs Vital Signs Date Time Temp Pulse Resp B/P (MAP) Pulse Ox O2 Delivery O2 Flow Rate FiO2 12/24/18 12:00 36.5 66 20 140/65 (90) 93 Nasal Cannula 3.00 12/23/18 13:13 32 Capillary Refill : Less Than 3 Seconds General Appearance: No Apparent Distress, WD/WN, Chronically ill, Obese Respiratory: No Accessory Muscle Use, No Respiratory Distress, Crackles, Decreased Breath Sounds, Wheezing Cardiovascular: Regular Rate, Rhythm Extremity: Pedal Edema Neurologic/Psychiatric: Alert, Oriented x3, No Motor/Sensory Deficits, Normal Mood/Affect Results/Procedures Lab Patient resulted labs reviewed. Assessment/Plan Assessment and Plan Assess & Plan/Chief Complaint Assessment: Pneumonia Exacerbation of COPD on IV steroids History of ESBL infection Obesity hypoventilation syndrome Chronic lymphedema Hypertension Diastolic heart failure Plan: Pneumonia treatment to continue Maintain IV steroids Nebulizer treatments Diagnosis/Problems Diagnosis/Problems (1) Pneumonia (2) COPD exacerbation Status: Resolved (3) LEIGHANN (acute kidney injury) Status: Resolved Resolution Date/Time: 02/20/18 @ 18:58 (4) Essential (primary) hypertension Status: Chronic (5) Obesity hypoventilation syndrome Status: Chronic (6) VALDO on CPAP Status: Resolved Resolution Date/Time: 02/20/18 @ 18:58 (7) Severe pain Status: Chronic Clinical Quality Measures DVT/VTE Risk/Contraindication: Risk Factor Score Per Nursin RFS Level Per Nursing on Admit: 4+=Very High SIENNA MADERA DO Dec 24, 2018 13:21 POS
--- NOTE | 2018-12-24 14:04 | Progress Note - Cardiology ---
Cardiology SOAP Progress Note Subjective: Notes shortness of breath with activity No cp or palp or syncope Objective: I&O/Vital Signs 12/24/18 12/24/18 12/24/18 12/24/18 03:27 04:00 06:53 08:00 Temp 36.3 36.1 Pulse 71 69 Resp 14 18 B/P (MAP) 155/69 (97) 179/80 (113) Pulse Ox 92 92 91 O2 Delivery Nasal Cannula Nasal Cannula Nasal Cannula Nasal Cannula O2 Flow Rate 3.00 3.00 3.00 3.00 12/24/18 12/24/18 12/24/18 10:08 10:50 12:00 Temp 36.5 Pulse 66 Resp 20 B/P (MAP) 140/65 (90) Pulse Ox 94 94 93 O2 Delivery Nasal Cannula Nasal Cannula Nasal Cannula O2 Flow Rate 3.00 2.00 3.00 12/24/18 00:00 Intake Total 2517.5 ml Output Total 830 ml Balance 1687.5 ml Weight (Pounds): 270 Weight (Ounces): 9.0 Weight (Calculated Kilograms): 122.986837 Constitutional: AAO x 3, well-developed, well-nourished Respiratory: No accessory muscle use; other (fair to good bilat air entry, diminished at the bases) Cardiovascular: regular rate-rhythm, S1 and S2, systolic murmur (faint AUREA at card base) Gastrointestional: No tender; soft; No guarding, No rebound; audible bowel sounds Extremities: swelling (moderate, bilateral, pitting and nonpitting leg swelling); No clubbing, No cyanosis Neurologic/Psychiatric: oriented x 3, other (moves all limbs equally) Skin: normal color, warm/dry Results/Procedures: Labs Microbiology 12/21/18 Blood Culture - Preliminary, Resulted No growth 12/21/18 MRSA Screen - Final, Complete MRSA not isolated 12/21/18 Urine Culture - Final, Complete 3 or more isolates Laboratory Tests 12/23/18 08:45 A/P: Assessment: Ac exac of COPD due to pneumonia Chronic systolic and diastolic CHF due to nonischemic cardiomyopathy, MUGA scan was done in November 2015 showing ejection fraction 55 percent, echocardiogram done on December 21, 2018 showing ejection fraction 45-50 percent, left atrial d ilatation, pulmonary artery pressure of 35 mmHg Mild coronary artery disease nonobstructive disease by cardiac catheterization done in May [address] Kate to [facility] in 2016 did angioplasty and drug-eluting stent (Promus 3.524 mm )to the anterior tibial artery on the right side Hypertension Moderate bilateral carotid stenosis, ultrasound was done in October 2016. CTA head and neck done February 2018 CREST syndrome, managed by her cloud engineer Peripheral edema, chronic History of multiple back and knee surgeries, had spinal fusion surgery done Chronic renal insufficiency, follows with Dr. Saundra Cruz as outpatient History of elevated liver enzymes Obesity with BMI is 44 History of anemia, followed and managed by primary care physician Plan: * I interviewed and examined her and reviewed her med recs * Continue current cardiac regimen * Monitor labs * I answered her CV-related questions DAVID ANDRE MD FACP FACC CCDS Dec 24, 2018 14:04 POS
[2018-12-24 16:00] VITALS: BP 180/84
[2018-12-24] MEDS: toPIRamate 25 MG (TOPAMAX) TAB PO SCH (20:20)
[2018-12-24] MEDS: MONTELUKAST 10 MG (SINGULAIR) TAB PO SCH (20:20)
[2018-12-24] MEDS: PANTOPRAZOLE 40 MG (PROTONIX) TAB PO SCH (20:20)
[2018-12-24] MEDS: VITAMIN D3 1,000 UNITS (CHOLECALCIFEROL) TABLET PO SCH (20:20)
[2018-12-24] MEDS: GABAPENTIN 300 MG (NEURONTIN) CAP PO SCH (20:21)
[2018-12-24] MEDS: SIMvastatin 20 MG (ZOCOR) TAB PO SCH (20:21)
[2018-12-25] VITALS: BP 177/80
[2018-12-25] MEDS: RT-ALBUTEROL/IPRATROPIUM 3 ML (DUONEB) VIAL INH SCH ×6 (04:20→23:00)
[2018-12-25 04:51] LABS: BASOPHILS % (AUTO) 0 % (0-10); EOSINOPHILS % (AUTO) 0 % (0-10); HEMATOCRIT 37 % (35-52); HEMOGLOBIN 12.5 G/DL (11.5-16.0); LYMPHOCYTES # (AUTO) 1.1 X 10^3 (1.0-4.0); LYMPHOCYTES % (AUTO) 12 % (12-44); MEAN CORPUSCULAR HGB CONC 34 G/DL (32-36); MEAN CORPUSCULAR VOLUME 94 FL (80-99); MEAN PLATELET VOLUME 10.3 FL (7.4-10.4); MONOCYTES # (AUTO) 0.9 X 10^3 (0.0-1.0); MONOCYTES % (AUTO) 9 % (0-12); NEUTROPHILS # (AUTO) 7.5 X 10^3 (1.8-7.8); NEUTROPHILS % (AUTO) 79 % (42-75); PLATELET COUNT 183 10^3/uL (130-400); WHITE BLOOD COUNT 9.5 10^3/uL (4.3-11.0)
[2018-12-25 04:52] LABS: MEAN CORPUSCULAR HEMOGLOBIN 31 PG (25-34)
[2018-12-25 05:10] LABS: ALANINE AMINOTRANSFERASE 12 U/L (0-55); ALBUMIN 3.1 GM/DL (3.2-4.5); ALKALINE PHOSPHATASE 49 U/L (40-136); BILIRUBIN,TOTAL 0.7 MG/DL (0.1-1.0); BUN/CREATININE RATIO 38; CALCIUM 8.9 MG/DL (8.5-10.1); CARBON DIOXIDE 28 MMOL/L (21-32); CHLORIDE 105 MMOL/L (98-107); CREATININE SERUM 0.91 MG/DL (0.60-1.30); GFR ESTIMATED > 60; GLUCOSE 117 MG/DL (70-105); POTASSIUM 3.6 MMOL/L (3.6-5.0); SODIUM 142 MMOL/L (135-145)
[2018-12-25] MEDS: ASCORBIC ACID (VIT C) 500 MG TABLET PO SCH (05:34)
[2018-12-25] MEDS: MEROPENEM 500 MG in WATER (STERILE) FOR INJECTION 10 ML IV SCH ×5 (05:34→18:17)
--- NOTE | 2018-12-25 07:15 | Pulmonary Progress Note ---
Subjective Time Seen by a Provider: 05:08 Sepsis Event Evaluation Height, Weight, BMI Height: 5'4.00" Weight: 270lbs. 9.0oz. 122.663522pe; 43.72 BMI Method:Stated Exam Exam Vital Signs Date Time Temp Pulse Resp B/P (MAP) Pulse Ox O2 Delivery O2 Flow Rate FiO2 12/25/18 00:00 36.7 69 14 177/80 (112) 95 Nasal Cannula 3.00 12/24/18 22:13 95 Nasal Cannula 3.00 12/24/18 21:30 Nasal Cannula 2.00 12/24/18 18:49 94 Nasal Cannula 3.00 12/24/18 16:00 36.6 67 18 180/84 (116) 96 Nasal Cannula 3.00 12/24/18 14:29 96 Nasal Cannula 3.00 12/24/18 12:00 36.5 66 20 140/65 (90) 93 Nasal Cannula 3.00 12/24/18 10:50 94 Nasal Cannula 2.00 12/24/18 10:08 94 Nasal Cannula 3.00 12/24/18 08:00 36.1 69 18 179/80 (113) 91 Nasal Cannula 3.00 I & O 12/25/18 07:00 Intake Total 2777.5 ml Output Total 3100 ml Balance -322.5 ml Height & Weight Height: 5'4.00" Weight: 270lbs. 9.0oz. 122.292956jp; 43.72 BMI Method:Stated General Appearance: No Apparent Distress, WD/WN, Chronically ill, Obese HEENT: PERRL/EOMI, Normal ENT Inspection, Pharynx Normal Neck: Full Range of Motion, Non Tender, Supple Respiratory: No Accessory Muscle Use, No Respiratory Distress, Crackles, Decreased Breath Sounds, Wheezing Cardiovascular: Regular Rate, Rhythm Capillary Refill: Less Than 3 Seconds Peripheral Pulses: 2+ Dorsalis Pedis (R), 2+ Left Dors-Pedis (L), 2+ Radial Pulses (R), 2+ Radial Pulses (L) Gastrointestinal: normal bowel sounds, non tender, soft Extremity: Pedal Edema Neurologic/Psychiatric: Alert, Oriented x3, No Motor/Sensory Deficits, Normal Mood/Affect Skin: Normal Color, Warm/Dry Lymphatic: No Adenopathy Results Lab Laboratory Tests 12/23/18 08:45 12/25/18 04:45 Assessment/Plan Assessment/Plan Acute respiratory distress with hypoxia - much improved - CT of chest without contrast - shows atelectasis and signs of acute bronchitis -Pt feels improved PNA - failed out pt treatment - vanco and Merrem -MRSA swab is neg UTI -Cultures pending Acute bronchitis/AsthmaAE -Solumedrol 40 IV Q 6 -decrease to Q 12 -Duoneb Obesity with OHS and VALDO -Noncompliant with home vent to mask Atelectasis -SVNs -IS Allergic rhinitis -naz truong CHF, Nonischemic cardiomyopathy JORGE DORAOD DO Dec 25, 2018 07:15 POS
[2018-12-25 07:45] VITALS: BP 162/78
[2018-12-25] MEDS: methylPREDNISolone 40 MG/ML (Solu-MEDROL) VIAL IV SCH ×2 (09:10→20:08)
[2018-12-25] MEDS: CLOPIDOGREL 75 MG (PLAVIX) TABLET PO SCH (09:10)
[2018-12-25] MEDS: DULoxetine 30 MG (CYMBALTA) CAP PO SCH (09:10)
[2018-12-25] MEDS: ALLOPURINOL 100 MG (ZYLOPRIM) TAB PO SCH (09:10)
[2018-12-25] MEDS: BUMETANIDE 1 MG (BUMEX) TAB PO SCH (09:10)
[2018-12-25] MEDS: CARVEDILOL 12.5 MG (COREG) TABLET PO SCH ×2 (09:10→20:07)
[2018-12-25] MEDS: ENOXAPARIN 40 MG/0.4 ML (LOVENOX) SYR SC SCH ×2 (09:10→20:08)
[2018-12-25] MEDS: LORATADINE (CLARITIN) 10 MG TAB PO SCH (09:10)
[2018-12-25] MEDS: TOLTERODINE LA 4 MG (DETROL) CAP PO SCH (09:10)
[2018-12-25] MEDS: FERROUS SULF 325 MG (IRON) TAB PO SCH (09:11)
[2018-12-25] MEDS: SENNA W/DOCUSATE (SENOKOT S) TABLET PO SCH ×2 (09:11→20:03)
[2018-12-25] MEDS: ENALAPRIL 2.5 MG (VASOTEC) TAB PO SCH (09:11)
[2018-12-25] MEDS: RT-ADVAIR HFA 115/21 MCG PER PUFF IH SCH ×2 (10:05→20:08)
[2018-12-25] MEDS: TRIAMCINOLONE 0.1% CR (KENALOG) 15 GM TUBE TP PRN (10:25)
[2018-12-25] MEDS: KCL 10 MEQ TAB (MICRO K) PO SCH ×2 (12:59→18:18)
[2018-12-25] MEDS: HYDROXYCHLOROQUINE 200 MG (PLAQUENIL) TAB PO SCH ×2 (13:02→18:20)
--- NOTE | 2018-12-25 13:54 | Progress Note - Hospitalist ---
Subjective HPI/CC On Admission Date Seen by Provider: Dec 25, 2018 Time Seen by Provider: 13:00 CC: Wheezing HPI: This is a 73yoWF clinic pt of mine who resides at [facility] who presented to the hospital for failed antibiotic treatment and presumed pneumonia with wheezing and respiratory insufficiency after she failed Cefdinir antibiotic breathing treatments and antitussives at home. She has been requiring oxygen 24/7 of which she doesn't usually use except for at night because she can't tolerate CPAP. She at this current time was unable to get up and around to shower because she just doesn't feel like it. Her lungs are wheezing B/L and pt is high risk for respiratory insufficiency. I did update Dr. Andrew and Dr. Carbajal of theadmission status. Subjective/Events-last exam Patient doing much better Slept well last night on an air mattress which is helped tremendously Cough is doing very good Dr. Andrew was pleased with her progress also Likely discharge tomorrow to [facility] Maintain on oxygen 24/7 Review of Systems Pulmonary: Cough Objective Exam Vital Signs Vital Signs Date Time Temp Pulse Resp B/P (MAP) Pulse Ox O2 Delivery O2 Flow Rate FiO2 12/25/18 14:19 95 Nasal Cannula 3.00 12/25/18 07:45 36.4 63 20 162/78 (106) 12/23/18 13:13 32 Capillary Refill : Less Than 3 Seconds General Appearance: No Apparent Distress, WD/WN, Chronically ill Respiratory: No Accessory Muscle Use, No Respiratory Distress, Crackles, Decreased Breath Sounds Cardiovascular: Regular Rate, Rhythm Extremity: Pedal Edema Results/Procedures Lab Laboratory Tests 12/25/18 04:45 Patient resulted labs reviewed. Assessment/Plan Assessment and Plan Assess & Plan/Chief Complaint Assessment: Pneumonia Exacerbation of COPD on IV steroids History of ESBL infection Obesity hypoventilation syndrome Chronic lymphedema Hypertension Diastolic heart failure Plan: Pneumonia treatment to continue Maintain IV steroids Nebulizer treatments DC to [place] tomorrow Diagnosis/Problems Diagnosis/Problems (1) Pneumonia (2) COPD exacerbation Status: Resolved (3) LEIGHANN (acute kidney injury) Status: Resolved Resolution Date/Time: 02/20/18 @ 18:58 (4) Essential (primary) hypertension Status: Chronic (5) Obesity hypoventilation syndrome Status: Chronic (6) VALDO on CPAP Status: Resolved Resolution Date/Time: 02/20/18 @ 18:58 (7) Severe pain Status: Chronic Clinical Quality Measures DVT/VTE Risk/Contraindication: Risk Factor Score Per Nursin RFS Level Per Nursing on Admit: 4+=Very High SIENNA MADERA DO Dec 25, 2018 13:54 POS
--- NOTE | 2018-12-25 15:54 | Progress Note - Cardiology ---
Cardiology SOAP Progress Note Subjective: No cp or palp or syncope Has exertional shortness of breath that is slowly improving, as is her gen malaise Objective: I&O/Vital Signs 12/25/18 12/25/18 12/25/18 12/25/18 07:45 09:00 10:05 14:19 Temp 36.4 Pulse 63 Resp 20 B/P (MAP) 162/78 (106) Pulse Ox 93 96 95 O2 Delivery Nasal Cannula Nasal Cannula Nasal Cannula Nasal Cannula O2 Flow Rate 3.00 2.00 3.00 3.00 12/25/18 00:00 Intake Total 2627.5 ml Output Total 2100 ml Balance 527.5 ml Weight (Pounds): 270 Weight (Ounces): 9.0 Weight (Calculated Kilograms): 122.882878 Constitutional: AAO x 3, well-developed, well-nourished Respiratory: No accessory muscle use; other (fair to good bilat air entry, diminished at the bases) Cardiovascular: regular rate-rhythm, S1 and S2, systolic murmur (faint AUREA at card base) Gastrointestional: No tender; soft; No guarding, No rebound; audible bowel sounds Extremities: swelling (moderate, bilateral, pitting and nonpitting leg swelling); No clubbing, No cyanosis Neurologic/Psychiatric: oriented x 3, other (moves all limbs equally) Skin: normal color, warm/dry Results/Procedures: Labs Laboratory Tests 12/25/18 04:45: White Blood Count 9.5, Red Blood Count 3.97L, Hemoglobin 12.5, Hematocrit 37, Mean Corpuscular Volume 94, Mean Corpuscular Hemoglobin 31, Mean Corpuscular Hemoglobin Concent 34, Red Cell Distribution Width 13.0, Platelet Count 183, Mean Platelet Volume 10.3, Neutrophils (%) (Auto) 79H, Lymphocytes (%) (Auto) 12, Monocytes (%) (Auto) 9, Eosinophils (%) (Auto) 0, Basophils (%) (Auto) 0, Neutrophils # (Auto) 7.5, Lymphocytes # (Auto) 1.1, Monocytes # (Auto) 0.9, Eosinophils # (Auto) 0.0, Basophils # (Auto) 0.0, Sodium Level 142, Potassium Level 3.6, Chloride Level 105, Carbon Dioxide Level 28, Anion Gap 9, Blood Urea Nitrogen 35H, Creatinine 0.91, Estimat Glomerular Filtration Rate > 60, BUN/Creatinine Ratio 38, Glucose Level 117H, Calcium Level 8.9, Corrected Calcium 9.6, Total Bilirubin 0.7, Aspartate Amino Transf (AST/SGOT) 15, Alanine Aminotransferase (ALT/SGPT) 12, Alkaline Phosphatase 49, Total Protein 5.0L, Albumin 3.1L Microbiology 12/21/18 Blood Culture - Preliminary, Resulted No growth 12/21/18 MRSA Screen - Final, Complete MRSA not isolated 12/21/18 Urine Culture - Final, Complete 3 or more isolates Laboratory Tests 12/25/18 04:45 A/P: Assessment: Ac exac of COPD due to pneumonia 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 Kate to [facility] in 2016 did angioplasty and drug-eluting stent (Promus 3.524 mm )to the anterior tibial artery on the right side Hypertension Moderate bilateral carotid stenosis, ultrasound was done in October 2016. CTA head and neck done February 2018 CREST syndrome, managed by her manager income tax Peripheral edema, chronic History of multiple back and knee surgeries, had spinal fusion surgery done Chronic renal insufficiency, follows with Dr. Saundra Cruz as outpatient History of elevated liver enzymes Obesity with BMI is 44 History of anemia, followed and managed by primary care physician Plan: * Continue current cardiac regimen * Monitor labs DAVID ANDRE MD FACP FAC CCDS Dec 25, 2018 15:54 POS
[2018-12-25 16:00] VITALS: BP 188/92
[2018-12-25] MEDS: MONTELUKAST 10 MG (SINGULAIR) TAB PO SCH (20:03)
[2018-12-25] MEDS: SIMvastatin 20 MG (ZOCOR) TAB PO SCH (20:03)
[2018-12-25] MEDS: PANTOPRAZOLE 40 MG (PROTONIX) TAB PO SCH (20:03)
[2018-12-25] MEDS: VITAMIN D3 1,000 UNITS (CHOLECALCIFEROL) TABLET PO SCH (20:03)
[2018-12-25] MEDS: GABAPENTIN 300 MG (NEURONTIN) CAP PO SCH (20:05)
[2018-12-25] MEDS: toPIRamate 25 MG (TOPAMAX) TAB PO SCH (20:05)
[2018-12-26 00:14] VITALS: BP 147/74
[2018-12-26] MEDS: MEROPENEM 500 MG in WATER (STERILE) FOR INJECTION 10 ML IV SCH ×2 (00:15→05:31)
[2018-12-26] MEDS: RT-ALBUTEROL/IPRATROPIUM 3 ML (DUONEB) VIAL INH SCH ×2 (03:19→06:29)
[2018-12-26] MEDS: ASCORBIC ACID (VIT C) 500 MG TABLET PO SCH (05:31)
[2018-12-26] MEDS: RT-ADVAIR HFA 115/21 MCG PER PUFF IH SCH (06:29)
[2018-12-26 06:32] LABS: BASOPHILS % (AUTO) 0 % (0-10); EOSINOPHILS % (AUTO) 0 % (0-10); HEMATOCRIT 39 % (35-52); LYMPHOCYTES # (AUTO) 1.1 X 10^3 (1.0-4.0); LYMPHOCYTES % (AUTO) 12 % (12-44); MEAN CORPUSCULAR HEMOGLOBIN 32 PG (25-34); MEAN CORPUSCULAR HGB CONC 34 G/DL (32-36); MEAN CORPUSCULAR VOLUME 94 FL (80-99); MONOCYTES # (AUTO) 0.9 X 10^3 (0.0-1.0); MONOCYTES % (AUTO) 9 % (0-12); NEUTROPHILS # (AUTO) 7.1 X 10^3 (1.8-7.8); NEUTROPHILS % (AUTO) 79 % (42-75); PLATELET COUNT 180 10^3/uL (130-400); RED CELL DISTRIBUTION WIDTH 12.6 % (10.0-14.5); WHITE BLOOD COUNT 9.1 10^3/uL (4.3-11.0)
[2018-12-26 06:51] LABS: ALANINE AMINOTRANSFERASE 11 U/L (0-55); ALBUMIN 3.2 GM/DL (3.2-4.5); ALKALINE PHOSPHATASE 49 U/L (40-136); BILIRUBIN,TOTAL 0.8 MG/DL (0.1-1.0); BUN/CREATININE RATIO 30; CARBON DIOXIDE 31 MMOL/L (21-32); CHLORIDE 102 MMOL/L (98-107); CREATININE SERUM 0.87 MG/DL (0.60-1.30); GFR ESTIMATED > 60; GLUCOSE 113 MG/DL (70-105); POTASSIUM 3.8 MMOL/L (3.6-5.0); SODIUM 141 MMOL/L (135-145); TOTAL PROTEIN 5.1 GM/DL (6.4-8.2)
[2018-12-26 08:00] VITALS: BP 173/72
[2018-12-26] MEDS: BUMETANIDE 1 MG (BUMEX) TAB PO SCH (08:15)
[2018-12-26] MEDS: DULoxetine 30 MG (CYMBALTA) CAP PO SCH (08:15)
[2018-12-26] MEDS: FERROUS SULF 325 MG (IRON) TAB PO SCH (08:15)
[2018-12-26] MEDS: LORATADINE (CLARITIN) 10 MG TAB PO SCH (08:15)
[2018-12-26] MEDS: CARVEDILOL 12.5 MG (COREG) TABLET PO SCH (08:16)
[2018-12-26] MEDS: SENNA W/DOCUSATE (SENOKOT S) TABLET PO SCH (08:16)
[2018-12-26] MEDS: TOLTERODINE LA 4 MG (DETROL) CAP PO SCH (08:16)
[2018-12-26] MEDS: CLOPIDOGREL 75 MG (PLAVIX) TABLET PO SCH (08:16)
[2018-12-26] MEDS: ALLOPURINOL 100 MG (ZYLOPRIM) TAB PO SCH (08:16)
[2018-12-26] MEDS: ENOXAPARIN 40 MG/0.4 ML (LOVENOX) SYR SC SCH (08:16)
[2018-12-26] MEDS: methylPREDNISolone 40 MG/ML (Solu-MEDROL) VIAL IV SCH (08:16)
[2018-12-26] MEDS: ENALAPRIL 2.5 MG (VASOTEC) TAB PO SCH (08:16)
--- NOTE | 2018-12-26 08:31 | Cardiology Progress Note ---
Subjective Date Seen by Provider: Dec 26, 2018 Time Seen by Provider: 08:29 Subjective/Events-last exam Patient is sitting up in chair, eating breakfast. Continues to have some dyspnea. Denies any chest pain. Objective-Cardiology Exam Last Set of Vital Signs Vital Signs 12/23/18 12/26/18 12/26/18 13:13 00:14 06:30 Temp 36.5 Pulse 64 Resp 20 B/P (MAP) 147/74 (98) Pulse Ox 95 O2 Delivery Nasal Cannula O2 Flow Rate 3.00 FiO2 32 Capillary Refill : Less Than 3 Seconds I&O Intake and Output 12/26/18 00:00 Intake Total 2042 ml Output Total 3100 ml Balance -1058 ml Intake Oral 2022 ml IV Total 20 ml Output Urine Total 3100 ml # Bowel Movements 2 General: Alert, Oriented X3, Mild Distress HEENT: Atraumatic, PERRLA Neck: Supple, No JVD, No Thyromegaly Lungs: Other (Expiratory wheeze bilaterally) Heart: Regular Rate, Normal S1, Normal S2, No Murmurs Abdomen: Normal Bowel Sounds, Soft, No Tenderness, No Hepatosplenomegaly, No Masses Extremities: No Cyanosis, Normal Pulses, Other (Pedal edema) Skin: No Rashes, No Breakdown, No Significant Lesion Neuro: Normal Speech, Normal Tone Psych/Mental Status: Mental Status NL, Mood NL Results Lab Laboratory Tests 12/26/18 06:00 A/P-Cardiology Admission Diagnosis Pneumonia COPD CHF HTN Assessment/Plan Pneumonia, receiving antibiotic- management per Dr. Andrew and medical services. COPD, reporting improvement in her dyspnea. Continue to monitor CHF, Nonischemic cardiomyopathy, MUGA scan was done in November 2015 showing ejection fraction 55 percent, echocardiogram done on December 21, 2018 showing ejection fraction 45-50 percent, left atrial dilatation, pulmonary artery pres sure of 35 mmHg. No signs of congestive heart failure. Continue to monitor Mild coronary artery disease nonobstructive disease by cardiac catheterization done in May 2014. Continue to monitor at this time. Peripheral arterial disease, history of abdominal aortogram with angiogram to the lower extremities done by Dr. Cosme, reported to good vessel runoff to the lower extremities, medical therapy was recommended, repeat Peripheral runoff showed total occlusion of the anterior tibial artery and both lower extremities with brisk flow. It was done in March 2016, patient was referred by Dr. Kate to [facility] and had angioplasty and stent done using drug-eluting stent Promus 3.524 mm to the anterior tibial artery on the right side with good results. Hypertension, blood pressure elevated, patient currently on IV steroid, reports home blood pressure well controlled. Continue to monitor. Moderate bilateral carotid stenosis, ultrasound was done in October 2016. CTA head and neck done February 2018. Continue to monitor. 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 Peripheral edema, chronic, continue to monitor. History of multiple back and knee surgeries, had spinal fusion surgery done Chronic renal insufficiency, follows with Dr. Saundra Cruz as outpatient, continue to monitor renal function. History of elevated liver enzymes, continue to monitor. Obesity, BMI is 47, patient was educated on weight loss History of anemia, followed and managed by primary care physician Clinical Quality Measures DVT/VTE Risk/Contraindication: Risk Factor Score Per Nursin RFS Level Per Nursing on Admit: 4+=Very High RUBA SAMUEL Dec 26, 2018 08:31 POS
[2018-12-26 09:18] VITALS: BP 173/72
[2018-12-26] MEDS ORDERED: CEFD300C3 PO (10:13)
[2018-12-26] MEDS ORDERED: MONT10TA24 PO (10:13)
[2018-12-26] MEDS ORDERED: PRED10TA22 PO (10:13)
--- NOTE | 2018-12-26 10:40 | Discharge Summary ---
[facility] 12/26/18 1040: Diagnosis/Chief Complaint Date of Admission Dec 21, 2018 at 10:39 Date of Discharge Discharge Date: Dec 26, 2018 Admission Diagnosis Assessment: AECOPD with presumed pneumonia on CXR failed PO abx outpatient h/o ESBL UTI placed on Abdifatah and Vanc empirically Severe OHA previously near hospice candidacy Primary Care Clare Madera DO Discharge Diagnosis (1) Pneumonia (2) COPD exacerbation Status: Resolved (3) LEIGHANN (acute kidney injury) Status: Resolved (4) Essential (primary) hypertension Status: Chronic (5) Obesity hypoventilation syndrome Status: Chronic (6) VALDO on CPAP Status: Resolved (7) Severe pain Status: Chronic Discharge Summary Discharge Physical Exam Allergies: Coded Allergies: NSAIDS (Non-Steroidal Anti-Inflamma (Unverified Allergy, Mild, 03/18/09) Influenza Virus Vaccines (Verified Allergy, Unknown, 12/07/18) Penicillins (Verified Allergy, Unknown, 01/03/06) Sulfa (Sulfonamide Antibiotics) (Verified Allergy, Unknown, 01/03/06) aspirin (Verified Allergy, Unknown, 01/03/06) atorvastatin (Verified Allergy, Unknown, 12/07/18) carbamazepine (Verified Allergy, Unknown, 09/20/06) cephalexin (Verified Allergy, Unknown, 01/03/06) iodine (Verified Allergy, Unknown, 01/03/06) latex (Unverified Allergy, Unknown, 06/21/13) meloxicam (Verified Allergy, Unknown, 12/07/18) peanut (Verified Allergy, Unknown, 12/07/18) Vitals & I&Os Vital Signs Date Time Temp Pulse Resp B/P (MAP) Pulse Ox O2 Delivery O2 Flow Rate FiO2 12/26/18 09:18 36.3 68 95 32 12/26/18 08:00 18 173/72 (105) Nasal Cannula 3.00 General Appearance: No Apparent Distress, WD/WN Respiratory: Chest Non Tender, No Accessory Muscle Use, No Respiratory Distress, Expiration (Very slight end expiratory wheeze) Cardiovascular: Regular Rate, Rhythm, Normal Peripheral Pulses Extremity: Non Tender, No Calf Tenderness, Pedal Edema Skin: Normal Color, Warm/Dry Neurologic/Psychiatric: Alert, Oriented x3, No Motor/Sensory Deficits, Normal Mood/Affect Hospital Course Pt arrived direct admit fro [facility] after being seen by Dr. Madera for trouble breathing. She failed an outpatient trial of steroids and antibiotics for pneumonia. She was started on IV antibiotics, nebulizer treatments, and IV steroids with consultation with pulmonology. Her condition began to improve and the therapies were continued until her lungs were clear. She was able to be discharged back to [facility] on oral antibiotics and steroid taper with a close follow up in clinic in 3 days. Labs (last 24 hrs) Laboratory Tests 12/26/18 06:00: White Blood Count 9.1, Red Blood Count 4.13L, Hemoglobin 13.0, Hematocrit 39, Mean Corpuscular Volume 94, Mean Corpuscular Hemoglobin 32, Mean Corpuscular Hemoglobin Concent 34, Red Cell Distribution Width 12.6, Platelet Count 180, Mean Platelet Volume 11.0H, Neutrophils (%) (Auto) 79H, Lymphocytes (%) (Auto) 12, Monocytes (%) (Auto) 9, Eosinophils (%) (Auto) 0, Basophils (%) (Auto) 0, Neutrophils # (Auto) 7.1, Lymphocytes # (Auto) 1.1, Monocytes # (Auto) 0.9, Eosinophils # (Auto) 0.0, Basophils # (Auto) 0.0, Sodium Level 141, Potassium Level 3.8, Chloride Level 102, Carbon Dioxide Level 31, Anion Gap 8, Blood Urea Nitrogen 26H, Creatinine 0.87, Estimat Glomerular Filtration Rate > 60, BUN/Creatinine Ratio 30, Glucose Level 113H, Calcium Level 9.0, Corrected Calcium 9.6, Total Bilirubin 0.8, Aspartate Amino Transf (AST/SGOT) 14, Alanine Aminotransferase (ALT/SGPT) 11, Alkaline Phosphatase 49, Total Protein 5.1L, Albumin 3.2 Microbiology 12/21/18 Blood Culture - Preliminary, Resulted No growth 12/21/18 MRSA Screen - Final, Complete MRSA not isolated 12/21/18 Urine Culture - Final, Complete 3 or more isolates Patient resulted labs reviewed. Pending Labs Laboratory Tests 12/26/18 06:00: White Blood Count 9.1, Red Blood Count 4.13, Hemoglobin 13.0, Hematocrit 39, Mean Corpuscular Volume 94, Mean Corpuscular Hemoglobin 32, Mean Corpuscular Hemoglobin Concent 34, Red Cell Distribution Width 12.6, Platelet Count 180, Mean Platelet Volume 11.0, Neutrophils (%) (Auto) 79, Lymphocytes (%) (Auto) 12, Monocytes (%) (Auto) 9, Eosinophils (%) (Auto) 0, Basophils (%) (Auto) 0, Neutrophils # (Auto) 7.1, Lymphocytes # (Auto) 1.1, Monocytes # (Auto) 0.9, Eosinophils # (Auto) 0.0, Basophils # (Auto) 0.0, Sodium Level 141, Potassium Level 3.8, Chloride Level 102, Carbon Dioxide Level 31, Anion Gap 8, Blood Urea Nitrogen 26, Creatinine 0.87, Estimat Glomerular Filtration Rate > 60, BUN /Creatinine Ratio 30, Glucose Level 113, Calcium Level 9.0, Corrected Calcium 9.6, Total Bilirubin 0.8, Aspartate Amino Transf (AST/SGOT) 14, Alanine Aminotransferase (ALT/SGPT) 11, Alkaline Phosphatase 49, Total Protein 5.1, Albumin 3.2 Discharge Home Medications: Active Scripts Active Cefdinir 300 Mg Capsule 300 Mg PO BID Prednisone 10 Mg Tab.ds.pk 10 Mg PO DAILY Take 6 tabs(60mg)daily,decrease by 1 tab(10MG)daily. Montelukast Sodium 10 Mg Tablet 10 Mg PO HS Reported Triamcinolone Acetonide 0.1% Cream (Triamcinolone Acet) 15 Gm Cr TP BID PRN APPLY TO LEFT LEG Bumetanide 2 Mg Tablet 2 Mg PO DAILY PRN Guaifenesin Dm Syrup (Guaifenesin/Dextromethorphan) 5 Ml Syrup 5 Ml PO Q6H PRN Topiramate 25 Mg Tablet 25 Mg PO HS Iprat-Albut 0.5-3(2.5) mg/3 ml (Ipratropium/Albuterol Sulfate) 3 Ml Ampul.neb 3 Ml NEB 0800,1600 Iron (Ferrous Sulfate) 325 Mg Tablet 325 Mg PO DAILY Bumetanide 2 Mg Tablet 2 Mg PO DAILY Enalapril Maleate 2.5 Mg Tablet 2.5 Mg PO DAILY Ipratropium Fitzhugh 0.2 Mg/1 Ml Solution 0.2 Mg NEB TID PRN Guaifenesin AC Cough Syrup (Guaifenesin/Codeine Phosphate) 473 Ml Liquid 5 Ml PO Q6H PRN Oxycodone HCl 20 Mg Tablet 20 Mg PO 0600,1400,2200 Cranberry (Cranberry Fruit) 400 Mg Tablet 400 Mg PO BID Allopurinol 100 Mg Tablet 100 Mg PO DAILY Vitamin C (Ascorbate Calcium) 500 Mg Tablet 500 Mg PO DAILY Detrol LA (Tolterodine Tartrate) 4 Mg Cap 4 Mg PO DAILY Macrodantin (Nitrofurantoin Macrocrystal) 100 Mg Capsule 100 Mg PO 1700 Calmoseptine Ointment (Menthol/Lanolin/Calamine/Znox) 71 Gm Oint TP UD PRN APPLY TO JARETT AREA Locoid (Hydrocortisone Butyrate) 15 Gm Cream..g. TP BID PRN Vitamin A & D Ointment (Vitamin A & D) 60 Gm Oint TP DAILY PRN APPLY TO BLE & FEET Oxycodone HCl 20 Mg Tablet 20 Mg PO Q6H PRN Simvastatin 20 Mg Tablet 20 Mg PO HS Plavix (Clopidogrel Bisulfate) 75 Mg Tablet 75 Mg PO DAILY Allergy Relief (Cetirizine HCl) 10 Mg Tablet 10 Mg PO DAILY Carvedilol 12.5 Mg Tablet 12.5 Mg PO BID Duloxetine HCl 60 Mg Capsule.dr 60 Mg PO DAILY Hydroxychloroquine Sulfate 200 Mg Tablet 200 Mg PO 1200,1700 Gabapentin 300 Mg Capsule 300 Mg PO HS Nexium (Esomeprazole Magnesium) 40 Mg Cap 40 Mg PO HS Advair 250-50 Diskus (Fluticasone/Salmeterol) 1 Each Blst.w.dev 1 Puff IH DAILY Fluticasone Propionate 16 Gm Adak.susp 1 Adak NS DAILY PRN Vitamin D-3 (Cholecalciferol (Vitamin D3)) 2,000 Unit Capsule 2,000 Unit PO HS Potassium Chloride 10 Meq Capsule.er 20 Meq PO 1200,1700 TAKES 2 (10MEQ) CAPSULES Instructions to patient/family Please see electronic discharge instructions given to patient. Clinical Quality Measures DVT/VTE Risk/Contraindication: Risk Factor Score Per Nursin RFS Level Per Nursing on Admit: 4+=Very High CLARE MADERA DO 12/26/182: Diagnosis/Chief Complaint Discharge Diagnosis (1) Pneumonia (2) COPD exacerbation Status: Resolved (3) LEIGHANN (acute kidney injury) Status: Resolved (4) Obesity hypoventilation syndrome Status: Chronic (5) VALDO on CPAP Status: Resolved (6) Severe pain Status: Chronic (7) Essential (primary) hypertension Status: Chronic (8) Lymphedema Status: Chronic (9) CHF (congestive heart failure) Status: Chronic Discharge Summary Discharge Physical Exam Allergies: Coded Allergies: NSAIDS (Non-Steroidal Anti-Inflamma (Unverified Allergy, Mild, 03/18/09) Influenza Virus Vaccines (Verified Allergy, Unknown, 12/07/18) Penicillins (Verified Allergy, Unknown, 01/03/06) Sulfa (Sulfonamide Antibiotics) (Verified Allergy, Unknown, 01/03/06) aspirin (Verified Allergy, Unknown, 01/03/06) atorvastatin (Verified Allergy, Unknown, 12/07/18) carbamazepine (Verified Allergy, Unknown, 09/20/06) cephalexin (Verified Allergy, Unknown, 01/03/06) iodine (Verified Allergy, Unknown, 01/03/06) latex (Unverified Allergy, Unknown, 06/21/13) meloxicam (Verified Allergy, Unknown, 12/07/18) peanut (Verified Allergy, Unknown, 12/07/18) General Appearance: No Apparent Distress, WD/WN Respiratory: Chest Non Tender, Lungs Clear, Normal Breath Sounds, No Accessory Muscle Use, No Respiratory Distress Cardiovascular: Regular Rate, Rhythm Neurologic/Psychiatric: Alert, Oriented x3, No Motor/Sensory Deficits, Normal Mood/Affect Hospital Course Was the Problem List Reviewed?: Yes Hospital course: Pt had a lengthy hospital course for 6 days after she was directly admitted form [place] after failing Cefdinir for bronchitis and filtrate noted on chest x ray. Pt was placed on Meropenem and Vancomycin due to ESBL history and facility acquired possibility of staph. Nebulizer treatments ordered, along with oxygen supplementation along with IV steroids. Dr. Andrew was consulted along with Dr. Carbajal and no issues occurred during her hospital stay and she was discharged in improved condition at time of discharged and I will have a close follow up with her and completing Cefdinir antibiotics for two days at [place] with Prednisone taper dose. Discussion & Recommendations Discharge Planning: <30 minutes discharge planning Supervisory-Addendum Brief Verification & Attestation Participated in pt care: history, MDM, physical Personally performed: exam, history, MDM, supervision of care Care discussed with: Medical Student Procedures: n/a Results interpretation: Verified all documentation Verification and Attestation of Medical Student E/M Service A medical student performed and documented this service in my presence. I reviewed and verified all information documented by the medical student and made modifications to such information, when appropriate. I personally performed the physical exam and medical decision making. Clare Madera, Dec 26, 2018,21:06 [facility] Dec 26, 2018 10:40 CLARE CHADWICK DO Dec 26, 2018 21:05 POS
[2018-12-26] MEDS ORDERED: RT-ALBUTEROL SULF 2.5 MG/3 ML PRE-MIX VIAL INH PRN (11:00)
[2018-12-26] MEDS: HYDROXYCHLOROQUINE 200 MG (PLAQUENIL) TAB PO SCH (11:27)
[2018-12-26] MEDS: KCL 10 MEQ TAB (MICRO K) PO SCH (11:27)
--- NOTE | 2018-12-26 11:57 | NUR ---
Report called Lucie at [facility]
[2018-12-26 13:05] VITALS: BP 173/72
[2018-12-26] MEDS ORDERED: RT-ALBUTEROL/IPRATROPIUM 3 ML (DUONEB) VIAL INH SCH (15:00)
--- OUTSIDE RECORDS SUMMARY | 2019-01-13 18:21 | XMS REPORT | Clinical Summary ---
Author Author [facility] POS Organization [facility] SP Address Unknown SP Phone Unavailable SP Care Team Providers Care Final Application Reviewer Name Role Phone POS Bulmaro Byrne MD Unavailable SP Michelle Messina MD Unavailable [phone] SP Brooks Vu PA-C Unavailable SP Clare Parada DO PCP SP Brody Mcintosh MD Unavailable SP Sheri Aranda MD Unavailable SP Source Comments Some departments are not documenting in the electronic medical record. If you d o not see the information that you expected, contact Release of Information in [facility] Information Management department at [phone] for further assistan ce in locating additional records.[facility] Allergies Comments POS Active Allergy Reactions Severity Noted Date SP SP Allergy recorded in SMS: ASA Aspirin HIVES 10/27/2004 SP SP Pt reports that she had a rxn several years ago to the iodine in salt and that she has had iv contrast after that without any problems (unclear if pre-meds were used prior to the contrast). Iodine SEE COMMENTS, 10/27/2004 SP ANGIOEDEMA SP SP Cephalexin HIVES 02/04/2010 SP SP Latex RASH, ITCHING 02/04/2010 SP SP Nsaids (Non-Steroidal HIVES 07/25/2009 SP Anti-Inflammatory Drug) SP SP Allergy recorded in SMS: PCN Penicillins RASH, STOMACH 10/27/2004 SP UPSET, SP ITCHING SP SP Carbamazepine FEVER 02/04/2010 SP Medications End Date Status POS Medication Sig Dispensed Refills Start SP Date SP Active SP lisinopril (PRINIVIL, Take 40 mg by 0 SP ZESTRIL) 40 mg tablet mouth Daily. SP Active SP hydroxychloroquine Take 200 mg 0 SP (PLAQUENIL) 200 mg tablet by mouth SP Twice Daily. SP Active SP pramipexole (MIRAPEX) Take 0.25 mg 0 SP 0.25 mg tablet by mouth SP Twice Daily. SP Active SP furosemide (LASIX) 40 mg Take 40 mg by 0 SP tablet mouth Daily. SP Active SP MULTIVITAMINS Take 1 Tab by 0 SP (MULTI-VITAMIN PO) mouth At SP Bedtime SP Daily. SP Active SP triamterene/hydrochloroth Take 1 Tab by 0 SP iazide (MAXZIDE) 37.5/25 mouth Daily. SP mg PO tablet SP Active SP esomeprazole DR(+) Take 40 mg by 0 SP (NEXIUM) 40 mg PO capsule mouth At SP Bedtime SP Daily. SP Active SP duloxetine DR (CYMBALTA) Take 60 mg by 0 SP 60 mg PO capsule mouth Daily. SP Active SP Ascorbic Acid (VITAMIN C) Take 1,000 mg 0 SP 1,000 mg PO Tab by mouth At SP Bedtime SP Daily. SP Active SP meclizine (ANTIVERT) 25 Take 25 mg by 0 SP mg PO tablet mouth twice SP daily as SP needed. When SP traveling for SP motion SP sickness SP Active SP metoprolol XL (TOPROL XL) Take 25 mg by 0 SP 25 mg tablet mouth daily. SP Active SP cholecalciferol (Vitamin Take 1,000 0 SP D3) (VITAMIN D-3) 1,000 Units by SP units tablet mouth daily. SP Active SP cyanocobalamin(+) Take 1,000 0 SP (VITAMIN B-12) 500 mcg mcg by mouth SP tablet daily. SP Active SP methadone (DOLOPHINE; Take 10 mg by 0 SP METHADOSE) 10 mg tablet mouth at SP bedtime daily SP Active SP potassium chloride SR Take 10 mEq 0 SP (K-DUR) 10 mEq tablet by mouth SP daily. SP Active SP CARBOXYMETHYLCELLULOSE Place 1 Drop 0 SP SODIUM (REFRESH OP) into or SP around eye(s) SP as Needed. 1 SP drop each eye SP as needed for SP comfort SP Active SP oxyCODone-acetaminophen Take 1-2 Tabs 0 SP (PERCOCET; ENDOCET; by mouth SP ROXICET) 5-325 mg tablet every 4 hours SP as needed Max SP 12 tabs/day SP Active Problems Problem Noted Date POS Chest wall pain 01/17/2013 SP Vitamin D insufficiency 01/22/2012 SP History of CREST syndrome 09/01/2011 SP Arthralgia 09/01/2011 SP Myalgia 09/01/2011 SP Dyspnea 09/01/2011 SP Fatigue 09/01/2011 SP Paresthesia of foot 09/01/2011 SP VALDO (obstructive sleep apnea) 09/01/2011 SP Depression 09/01/2011 SP HTN (hypertension) 09/01/2011 SP GERD (gastroesophageal reflux disease) 09/01/2011 SP Spinal stenosis 02/24/2010 SP Family History Medical History Relation Name Comments POS Cancer Brother larynx SP Coronary Artery Disease Brother SP Heart Disease Brother SP Stroke Brother SP Coronary Artery Disease Father SP Heart Disease Father SP Diabetes Mother SP Stroke Mother SP Cancer Sister breast SP Relation Name Status Comments SP Brother SP Father SP Mother SP Sister SP Social History Date POS Tobacco Use Types Packs/Day Years Used SP Quit: 02/22/1993 SP Former Smoker Cigarettes 2 30 SP Smokeless Tobacco: Never SP Used SP Drinks/Week oz/Week Comments POS Alcohol Use SP SP No SP Sex Assigned at Date Recorded SP Not on file SP Industry POS Job Start Date Occupation SP Not on file SP Not on file Not on file SP Travel End POS Travel History Travel Start SP No recent travel history available. SP Last Filed Vital Signs Reading Time Taken Comments POS Vital Sign SP 145/72 01/17/2013 3:21 PM YEAST CULTURE OPERATOR SP Blood Pressure SP 101 01/17/2013 3:21 PM YEAST CULTURE OPERATOR SP Pulse SP 36.9 C (98.4 F) 01/17/2013 3:21 PM YEAST CULTURE OPERATOR SP Temperature SP 20 01/17/2013 3:21 PM YEAST CULTURE OPERATOR SP Respiratory Rate SP 94% 12/01/2012 11:37 AM CDT 94% RA at rest. 90% RA upon arrival SP Oxygen Saturation SP - - SP Inhaled Oxygen SP Concentration SP 120.8 kg (266 lb 6.4 oz) 01/17/2013 3:21 PM YEAST CULTURE OPERATOR SP Weight SP 163.2 cm (5' 4.25") 01/17/2013 3:21 PM YEAST CULTURE OPERATOR SP Height SP 45.37 01/17/2013 3:21 PM YEAST CULTURE OPERATOR SP Body Mass Index SP Plan of Treatment Health Maintenance Due Date Last Done Comments POS DTAP/TDAP VACCINES (1 - 06/05/1963 SP Tdap) SP PHYSICAL (COMPREHENSIVE) 06/05/1963 SP EXAM SP BREAST CANCER SCREENING 1985 SP COLORECTAL CANCER 06/05/1995 SP SCREENING SP SHINGLES RECOMBINANT 06/05/1995 SP VACCINE (1 of 2) SP OSTEOPOROSIS 2010 SP SCREENING/MONITORING SP PNEUMONIA (PCV13/PPSV23) 2010 SP VACCINES (1 of 2 - PCV13) SP INFLUENZA VACCINE 09/22/2018 SP HEPATITIS C SCREENING Completed 01/17/2013 SP Results Not on filefrom Last 3 Months Insurance Type POS Payer Benefit Subscriber ID Effective Phone Address SP Plan / Dates SP Group SP PPO SP BCBS [facility] xxxxxxxxxxxx 2003-P SP PREF CARE resent SP [id number] SP [phone] SP (Work) Kiah Araya Third Self [address] SP [employer] (Home) [place] [address] SP Liability [phone] SP (Work) SP Advance Directives Patient Stack Supervisor Explanation POS Type Date Recorded SP SP Advance 11/01/2012 9:38 AM SP Directive/DPOA SP Date Inactivated Comments POS Code Status Date Activated SP 04/11/2012 2:35 PM SP Full Code 04/07/2012 5:36 PM SP Provider has discussed Code Status No, discussion no t SP w/Patient or Family? necessary based on SP Dx SP POS 02/24/2010 12:48 PM SP Full Code 02/20/2010 3:57 PM SP
--- OUTSIDE RECORDS SUMMARY | 2019-01-13 18:21 | XMS REPORT | Clinical Summary ---
Author Author [facility] POS Organization [facility] SP Address Unknown SP Phone Unavailable SP Care Team Providers Care Junior Account Manager Name Role Phone POS PCP Unavailable SP Allergies Not on File Medications Not on file Active Problems Not on file Social History Date POS Tobacco Use Types Packs/Day Years Used SP SP Never Assessed SP Sex Assigned at Date Recorded SP Not on file SP Industry POS Job Start Date Occupation SP Not on file SP Not on file Not on file SP Travel End POS Travel History Travel Start SP No recent travel history available. SP Last Filed Vital Signs Not on file Plan of Treatment Not on file Results Not on filefrom Last 3 Months
--- OUTSIDE RECORDS SUMMARY | 2019-01-13 18:21 | XMS REPORT | Encounter Summary ---
Author Author [facility] POS Organization [facility] SP Address Unknown SP Phone Unavailable SP Care Team Providers Care Security Officer Name Role Phone POS PCP Unavailable SP Encounter Details Care Team Description POS Date Type Department SP SP Physician, Default SP 03/17/1998 [facility] al SP Encounter SP Social History Date POS Tobacco Use Types Packs/Day Years Used SP SP Never Assessed SP Sex Assigned at Date Recorded SP Not on file SP Industry POS Job Start Date Occupation SP Not on file SP Not on file Not on file SP Travel End POS Travel History Travel Start SP No recent travel history available. SP documented as of this encounter Plan of Treatment Not on filedocumented as of this encounter Visit Diagnoses Not on filedocumented in this encounter
--- OUTSIDE RECORDS SUMMARY | 2019-01-13 18:21 | XMS REPORT | Encounter Summary ---
Author Author [facility] POS Organization [facility] SP Address Unknown SP Phone Unavailable SP Care Team Providers Care Associate Professor Of Radiology Name Role Phone POS PCP Unavailable SP Encounter Details Care Team Description POS Date Type Department SP SP Brooks Neal MD [address] [facility] [address] [place] [address] [phone] SP 03/15/1998 [facility] SP - Encounter [id number] [facility] SP 03/17/1998 [place] [address] SP [phone] SP Social History Date POS Tobacco Use [...] Not on filedocumented as of this encounter Procedures Comments POS Procedure Name Priority Date/Time Associated Diag nosis SP SP EBV IGM Routine 03/16/1998 SP 5:00 AM RADIO EQUIPMENT REPAIRER SP SP DIFFERENTIAL Routine 03/16/1998 SP 5:00 AM RADIO EQUIPMENT REPAIRER SP SP URIC ACID Routine 03/16/1998 SP 5:00 AM RADIO EQUIPMENT REPAIRER SP SP PHOSPHORUS Routine 03/16/1998 SP 5:00 AM RADIO EQUIPMENT REPAIRER SP SP CBC AND DIFF (MANUAL DIFF Routine 03/16/1998 SP IF NECESSARY) 5:00 AM RADIO EQUIPMENT REPAIRER SP SP CALCIUM Routine 03/16/1998 SP 5:00 AM RADIO EQUIPMENT REPAIRER SP SP BASIC METABOLIC PANEL Routine 03/16/1998 SP 5:00 AM RADIO EQUIPMENT REPAIRER SP SP ALBUMIN Routine 03/16/1998 SP 5:00 AM RADIO EQUIPMENT REPAIRER SP SP CULTURE, URINE Routine 03/15/1998 SP 9:30 PM RADIO EQUIPMENT REPAIRER SP SP BRUCELLA HEATHER Routine 03/15/1998 SP 6:20 PM RADIO EQUIPMENT REPAIRER SP SP DIFFERENTIAL Routine 03/15/1998 SP 6:20 PM RADIO EQUIPMENT REPAIRER SP SP RHEUMATOID FACTOR Routine 03/15/1998 SP 6:20 PM RADIO EQUIPMENT REPAIRER SP SP PARVOVIRUS B19 PANEL Routine 03/15/1998 SP 6:20 PM RADIO EQUIPMENT REPAIRER SP SP IMMUNOGLOBULIN M Routine 03/15/1998 SP 6:20 PM RADIO EQUIPMENT REPAIRER SP SP FRANCISELLA TULARENSIS Routine 03/15/1998 SP ANTIBODY 6:20 PM RADIO EQUIPMENT REPAIRER SP SP ERYTHROCYTE SEDIMENTATION Routine 03/15/1998 SP RATE 6:20 PM RADIO EQUIPMENT REPAIRER SP SP CREATINE KINASE Routine 03/15/1998 SP 6:20 PM RADIO EQUIPMENT REPAIRER SP SP C-REACTIVE PROTEIN Routine 03/15/1998 SP 6:20 PM RADIO EQUIPMENT REPAIRER SP SP CBC AND DIFF (MANUAL DIFF Routine 03/15/1998 SP IF NECESSARY) 6:20 PM RADIO EQUIPMENT REPAIRER SP SP CMV IGM Routine 03/15/1998 SP 6:20 PM RADIO EQUIPMENT REPAIRER SP SP ANTINUCLEAR ANTIBODY Routine 03/15/1998 SP QUANTITATIVE 6:20 PM RADIO EQUIPMENT REPAIRER SP SP JULEE QUALITATIVE Routine 03/15/1998 SP 6:20 PM RADIO EQUIPMENT REPAIRER SP documented in this encounter Results * Ebv Igm (03/16/1998 5:00 AM RADIO EQUIPMENT REPAIRER) Pathologist POS Signature SP Kemi Sebastian 5.00 f 0.00 - 19.99 [facility] SP Virus IgM SP Specimen SP Blood SP Narrative Performed At SP Report [facility] SP Comments and Normal Ranges for Com ponent EBV IGM(AU) SP ACTUAL VALUE IS LESS THAN 5.00 SP Performing Organization Address [facility] Number SP [address] [place], [place] [address] SP [facility] SP * Basic Metabolic Panel (03/16/1998 5:00 AM RADIO EQUIPMENT REPAIRER) Pathologist SP Signature SP Sodium 138 134 - 144 MEQ/L [facility] SP Potassium 3.4 (L) 3.6 - 5.0 MEQ/L [facility] SP Chloride 103 98 - 107 MEQ/L [facility] SP Carbon Dioxide 24 23 - 32 MEQ/L [facility] SP Anion Gap 11 3 - 15 [facility] SP Creatinine 0.5 0.5 - 1.5 MG/DL [facility] SP Blood Urea 6 5 - 20 MG/DL [facility] SP Nitrogen SP Glucose 85 65 - 110 MG/DL [facility] SP Specimen SP Blood SP Performing Organization Address [facility] Ph one Number SP [address] [place], [place] [address] SP [facility] SP * DIFFERENTIAL (03/16/1998 5:00 AM RADIO EQUIPMENT REPAIRER) Only the most recent of 2 results within the time period is included. Pathologist SP Signature SP % Neutrophils 73 45 - 78 % [facility] SP %Lymphocytes 12 (L) 15 - 47 % [facility] SP %Monocytes 9 0 - 12 % [facility] SP %Eosinophils 7 0 - 7 % [facility] SP %Basophils 1 0 - 2 % [facility] SP # Granulocytes 5.9 1.7 - 6.8 TH/UL [facility] SP # Lymphocytes 1.0 1.0 - 3.3 TH/UL [facility] SP # Monocytes 0.7 0.2 - 0.9 TH/UL [facility] SP # Eosinophils 0.6 (H) 0.0 - 0.4 TH/UL [facility] SP # Basophils 0.1 0.0 - 0.2 TH/UL [facility] SP Specimen SP Blood SP Performing Organization Address [facility] Ph one Number SP [address] [place], [place] [address] SP [facility] SP * Uric Acid (03/16/1998 5:00 AM RADIO EQUIPMENT REPAIRER) Pathologist SP Signature SP Uric Acid 2.1 (L) 2.5 - 7.8 MG/DL [facility] SP Specimen SP Blood SP Performing Organization Address [facility] Ph one Number SP [address] [place], [place] [address] SP [facility] SP * Albumin (03/16/1998 5:00 AM RADIO EQUIPMENT REPAIRER) Pathologist SP Signature SP Albumin 2.6 (L) 3.6 - 4.6 G/DL [facility] SP Specimen SP Blood SP Performing Organization Address [facility] Ph one Number SP [address] [place] [address] SP [facility] SP * Calcium (03/16/1998 5:00 AM RADIO EQUIPMENT REPAIRER) Pathologist SP Signature SP Calcium 8.6 (L) 8.8 - 10.5 MG/DL [facility] SP Specimen SP Blood SP Performing Organization Address [facility] Ph one Number SP [address] [place] [address] SP [facility] SP * CBC and Diff (manual diff if necessary) (03/16/1998 5:00 AM RADIO EQUIPMENT REPAIRER) Only the most recent of 2 results within the time period is included. Pathologist SP Signature SP WBC 8.1 4.0 - 11.0 TH/UL [facility] SP RBC 3.98 (L) 4.00 - 5.00 MIL/UL [facility] SP Hemoglobin 12.3 12.0 - 15.0 G/DL [facility] SP Hematocrit 36 36 - 45 % [facility] SP MCV 91 80 - 99 FL [facility] SP MCH 31 27 - 34 PG [facility] SP MCHC 34 32 - 36 % [facility] SP RDW 12.4 <14.5 % [facility] SP Platelet Count 241 140 - 400 TH/UL [facility] SP Specimen SP Blood SP Performing Organization Address [facility] Ph one Number SP [address] [place] [address] SP [facility] SP * Phosphorus (03/16/1998 5:00 AM RADIO EQUIPMENT REPAIRER) Pathologist SP Signature SP Phosphorus 3.9 2.5 - 4.5 MG/DL [facility] SP Specimen SP Blood SP Performing Organization Address [facility] Ph one Number SP [address] [place] [address] SP [facility] SP * Culture, Urine (03/15/1998 9:30 PM RADIO EQUIPMENT REPAIRER) Specimen SP Urine SP Narrative [place] [id number] F 52 YRS EA SP [id number] SP BACTERIOLOGY SP SP PROCEDURE/ URINE CULTURE COLLECTED/ SP 03/15/982129 SP SOURCE/ URINE SP 03/15/982146 SP STARTED/ 03/15/982213 SP FINAL REPORT--- SP FINAL REPORT 03/16/981954 SP NO GROWTH SP Performing Organization Address [facility] Ph one Number SP [address] [place], [place] [address] SP [facility] SP * Parvovirus B19 Panel (03/15/1998 6:20 PM RADIO EQUIPMENT REPAIRER) Pathologist SP Signature SP PARVOVIRUS B19 POSITIVE (A) [facility] SP ANTIBODY (IGG) SP PARVOVIRUS B19 NEGATIVE [facility] SP ANTIBODY (IGM) SP Specimen SP Blood SP Narrative Performed At SP Report [facility] SP SUGGESTIVE OF PRIOR INFECTION. SP Performing Organization Address [facility] Ph one Number SP [address] [place], [place] [address] SP [facility] SP * CMV IgM (03/15/1998 6:20 PM RADIO EQUIPMENT REPAIRER) Pathologist SP Signature SP Cytomegalovirus 0.117 [facility] SP IgM Antibody SP Specimen SP Blood SP Narrative Performed At SP Report [facility] SP NEGATIVE SP Performing Organization Address [facility] one Number SP [address] [place], [place] [address] SP [facility] SP * Brucella Heather (03/15/1998 6:20 PM RADIO EQUIPMENT REPAIRER) Pathologist SP Signature SP BRUCELLA NEGATIVE NEGATIVE [facility] SP ANTIBODY SP Specimen SP Blood SP Performing Organization Address [facility] Number SP [address] [place], [place] [address] SP [facility] SP * Francisella Tularensis Antibody (03/15/1998 6:20 PM RADIO EQUIPMENT REPAIRER) Pathologist SP Signature SP Francisella NEGATIVE [facility] SP Tularensis SP Antibody SP Specimen SP Blood SP Performing Organization Address [facility] one Number SP [address] [place], [place] [address] SP [facility] SP * Rheumatoid Factor (03/15/1998 6:20 PM RADIO EQUIPMENT REPAIRER) Pathologist SP Signature SP Rheumatoid 30 (H) 0 - 19 IU/ML [facility] SP Factor SP Specimen SP Blood SP Performing Organization Address [facility] one Number SP [address] [place], [place] [address] SP [facility] SP * JULEE Qualitative (03/15/1998 6:20 PM RADIO EQUIPMENT REPAIRER) Pathologist SP Signature SP JULEE Qualitative POSITIVE (A) NEGATIVE [facility] SP Specimen SP Blood SP Performing Organization Address [facility] Ph one Number SP [address] [place], [place] [address] SP [facility] SP * Immunoglobulin M (03/15/1998 6:20 PM RADIO EQUIPMENT REPAIRER) Pathologist SP Signature SP Immunoglobulin 50 (L) 52 - 333 MG/DL [facility] SP M SP Specimen SP Blood SP Performing Organization Address [facility] Ph one Number SP [address] [place], [place] [address] SP [facility] SP * C-Reactive Protein (03/15/1998 6:20 PM RADIO EQUIPMENT REPAIRER) Pathologist SP Signature SP C Reactive 22.0 (H) 0.0 - 0.6 MG/L [facility] SP Protein SP Specimen SP Blood SP Performing Organization Address [facility] Number SP [address] [place], [place] [address] SP [facility] SP * Creatine Kinase (03/15/1998 6:20 PM RADIO EQUIPMENT REPAIRER) Pathologist SP Signature SP Creatine Kinase 43 30 - 225 IU/L [facility] SP Specimen SP Blood SP Performing Organization Address [facility] Number SP [address] [place], [place] [address] SP [facility] SP * Erythrocyte Sedimentation Rate (03/15/1998 6:20 PM RADIO EQUIPMENT REPAIRER) Pathologist SP Signature SP Sed Rate 70 (H) 0 - 20 MM/HR [facility] SP Specimen SP Blood SP Performing Organization Address [facility] Ph one Number SP [address] [place], [place] [address] SP [facility] SP * Antinuclear Antibody Quantitative (03/15/1998 6:20 PM RADIO EQUIPMENT REPAIRER) Pathologist SP Signature SP JULEE CENTROME (A) [facility] SP Quantitative SP Pattern 1 SP JULEE 1/160 (A) [facility] SP Quantitative SP Titer 1 SP Specimen SP Blood SP Performing Organization Address [facility] Ph one Number SP [address] [place], [place] [address] SP [facility] SP documented in this encounter Visit Diagnoses Not on filedocumented in this encounter
== END 2018-12-26 13:10 | DRG 190 ==
LOC: 4TH 10:39
PROVIDERS: ADMIT Internal Medicine; ATTEND Internal Medicine
DX: J44.0 Chronic obstructive pulmonary disease with (acute) lower respiratory infection (principal); J18.9 Pneumonia, unspecified organism; J44.1 Chronic obstructive pulmonary disease with (acute) exacerbation; I42.8 Other cardiomyopathies; E66.2 Morbid (severe) obesity with alveolar hypoventilation; Z68.41 Body mass index [BMI] 40.0-44.9, adult; I13.0 Hypertensive heart and chronic kidney disease with heart failure and stage 1 through stage 4 chronic kidney disease, or unspecified chronic kidney disease; I50.42 Chronic combined systolic (congestive) and diastolic (congestive) heart failure; J98.11 Atelectasis; J45.901 Unspecified asthma with (acute) exacerbation; N17.9 Acute kidney failure, unspecified; N18.9 Chronic kidney disease, unspecified; E11.40 Type 2 diabetes mellitus with diabetic neuropathy, unspecified; E11.51 Type 2 diabetes mellitus with diabetic peripheral angiopathy without gangrene; E87.6 Hypokalemia; M34.1 CR(E)ST syndrome; I25.10 Atherosclerotic heart disease of native coronary artery without angina pectoris; I89.0 Lymphedema, not elsewhere classified; R06.03 Acute respiratory distress; I44.0 Atrioventricular block, first degree; R09.02 Hypoxemia; I65.23 Occlusion and stenosis of bilateral carotid arteries; F41.9 Anxiety disorder, unspecified; F32.9 Major depressive disorder, single episode, unspecified; Z87.891 Personal history of nicotine dependence; Z85.3 Personal history of malignant neoplasm of breast; Z95.820 Peripheral vascular angioplasty status with implants and grafts; Z87.440 Personal history of urinary (tract) infections; Z98.1 Arthrodesis status; Z95.5 Presence of coronary angioplasty implant and graft
CPT/HCPCS: 36415; 71045; 71250; 80048; 80053; 80202; 81000; 82805; 83605; 83735; 83880; 84100; 85007; 85025; 85027; 85610; 85730; 87040; 87081; 87088; 87804; 93005; 93306; 94640; 94760

== ENCOUNTER 2019-01-25 12:34 | Outpatient (RCR) | payer MEDICARE, OTHER ==
[~2019-01-25 12:34] MED LIST changes: +CEFD300C3 PO; +FERR-84 PO; +MONT10TA26 PO; +TOPI25TA10 PO; +TR1C15 TP
[2019-03-04] MEDS ORDERED: PRD20T PO (12:55)
[2019-03-04] MEDS ORDERED: BENZ100C18 PO (15:24)
== END 2019-04-25 | disposition home or self-care (01) ==
PROVIDERS: ATTEND Internal Medicine
DX: R60.0 Localized edema (principal)

== ENCOUNTER 2019-03-04 11:26 | Emergency (ER) | payer MEDICARE, OTHER ==
[~2019-03-04] VITALS: Ht 162.5 cm; Wt 115.9 kg
[~2019-03-04 11:26] MED LIST changes: +MONT10TA24 PO; -MONT10TA26 PO
--- NOTE | 2019-03-04 11:37 | ED Cough/URI ---
General Chief Complaint: Cough/Cold/Flu Symptoms Stated Complaint: COUGH Source: patient, EMS Exam Limitations: no limitations History of Present Illness Date Seen by Provider: Mar 04, 2019 Time Seen by Provider: 11:26 Initial Comments Patient presents to the ER from senior care by EMS with chief complaint for 5 days of progressively worsening nonproductive cough, malaise, body aches. No fever or chills. No nausea vomiting diarrhea. Everybody in the house has a cold. She does not take flu vaccines. She has a history of COPD dependent on oxygen 2 L baseline. No smoking. No pain. Allergies and Home Medications Allergies Coded Allergies: NSAIDS (Non-Steroidal Anti-Inflamma (Unverified Allergy, Mild, 03/18/09) Influenza Virus Vaccines (Verified Allergy, Unknown, 12/07/18) Penicillins (Verified Allergy, Unknown, 01/03/06) Sulfa (Sulfonamide Antibiotics) (Verified Allergy, Unknown, 01/03/06) aspirin (Verified Allergy, Unknown, 01/03/06) atorvastatin (Verified Allergy, Unknown, 12/07/18) carbamazepine (Verified Allergy, Unknown, 09/20/06) cephalexin (Verified Allergy, Unknown, 01/03/06) iodine (Verified Allergy, Unknown, 01/03/06) latex (Unverified Allergy, Unknown, 06/21/13) meloxicam (Verified Allergy, Unknown, 12/07/18) peanut (Verified Allergy, Unknown, 12/07/18) Home Medications Allopurinol 100 Mg Tablet, 100 MG PO DAILY, (Reported) Ascorbate Calcium 500 Mg Tablet, 500 MG PO DAILY, (Reported) Bumetanide 2 Mg Tablet, 2 MG PO DAILY, (Reported) Bumetanide 2 Mg Tablet, 2 MG PO DAILY PRN for WEIGHT GAIN >5LBS/DAY, (Reported) Carvedilol 12.5 Mg Tablet, 12.5 MG PO BID, (Reported) Cefdinir 300 Mg Capsule, 300 MG PO BID Prescribed by: SIENNA MADERA on 12/26/18 1013 Cetirizine HCl 10 Mg Tablet, 10 MG PO DAILY, (Reported) Cholecalciferol (Vitamin D3) 2,000 Unit Capsule, 2,000 UNIT PO HS, (Reported) Clopidogrel Bisulfate 75 Mg Tablet, 75 MG PO DAILY, (Reported) Cranberry Fruit 400 Mg Tablet, 400 MG PO BID, (Reported) Duloxetine HCl 60 Mg Capsule.dr, 60 MG PO DAILY, (Reported) Enalapril Maleate 2.5 Mg Tablet, 2.5 MG PO DAILY, (Reported) Esomeprazole Magnesium 40 Mg Cap, 40 MG PO HS, (Reported) Ferrous Sulfate 325 Mg Tablet, 325 MG PO DAILY, (Reported) Fluticasone Propionate 16 Gm [place].susp, 1 SPRAY NS DAILY PRN for ALLERGIES, (Reported) Fluticasone/Salmeterol 1 Each Blst.w.dev, 1 PUFF IH DAILY, (Reported) Gabapentin 300 Mg Capsule, 300 MG PO HS, (Reported) Guaifenesin/Codeine Phosphate 473 Ml Liquid, 5 ML PO Q6H PRN for COUGH, (Reported) Guaifenesin/Dextromethorphan 5 Ml Syrup, 5 ML PO Q6H PRN for COUGH, (Reported) Hydrocortisone Butyrate 15 Gm Cream..g., TP BID PRN for INFLAMMATION, (Reported) Hydroxychloroquine Sulfate 200 Mg Tablet, 200 MG PO 1200,1700, (Reported) Ipratropium [place] 0.2 Mg/1 Ml Solution, 0.2 MG NEB TID PRN for SHORTNESS OF BREATH, (Reported) Ipratropium/Albuterol Sulfate 3 Ml Ampul.neb, 3 ML NEB 0800,1600, (Reported) Menthol/Lanolin/Calamine/Znox 71 Gm Oint, TP UD PRN for IRRITATION, (Reported) APPLY TO JARETT AREA Montelukast Sodium 10 Mg Tablet, 10 MG PO HS Prescribed by: SIENNA MADERA on 12/26/18 1013 Nitrofurantoin Macrocrystal 100 Mg Capsule, 100 MG PO 1700, (Reported) Oxycodone HCl 20 Mg Tablet, 20 MG PO Q6H PRN for PAIN-SEVERE, (Reported) Oxycodone HCl 20 Mg Tablet, 20 MG PO 0600,1400,2200, (Reported) Potassium Chloride 10 Meq Capsule.er, 20 MEQ PO 1200,1700, (Reported) TAKES 2 (10MEQ) CAPSULES Prednisone 10 Mg Tab.ds.pk, 10 MG PO DAILY Take 6 tabs(60mg)daily,decrease by 1 tab(10MG)daily. Prescribed by: SIENNA MADERA on 12/26/18 1013 Prednisone 20 Mg Tab, 40 MG PO DAILY Prescribed by: KERRY CARRILLO on 03/04/19 1255 Simvastatin 20 Mg Tablet, 20 MG PO HS, (Reported) Tolterodine Tartrate 4 Mg Cap, 4 MG PO DAILY, (Reported) Topiramate 25 Mg Tablet, 25 MG PO HS, (Reported) Triamcinolone Acet 15 Gm Cr, TP BID PRN for EYE REDNESS, (Reported) APPLY TO LEFT LEG Vitamin A & D 60 Gm Oint, TP DAILY PRN, (Reported) APPLY TO BLE & FEET Patient Home Medication List Home Medication List Reviewed: Yes Review of Systems Review of Systems Constitutional: No chills, No diaphoresis EENTM: nose congestion; No ear discharge, No ear pain Respiratory: cough; No orthopnea, No phlegm, No short of breath, No wheezing Cardiovascular: No chest pain, No palpitations Gastrointestinal: No abdominal pain, No constipation Genitourinary: No dysuria, No frequency : No Musculoskeletal: No back pain, No joint pain Skin: No pruritus, No rash All Other Systems Reviewed Negative Unless Noted: Yes Past Oqgqjvi-Kesosw-Zdmult Hx Patient Social History Alcohol Use: Denies Use Recreational Drug Use: No Smoking Status: Former Smoker Type Used: Cigarettes Former Smoker, Quit: Mar 25, 1994 2nd Hand Smoke Exposure: No Recent Foreign Travel: No Contact w/Someone Who Travel: No Recent Hopitalizations: No Immunizations Up To Date Tetanus Booster (TDap): Unknown PED Vaccines UTD: No Date of Pneumonia Vaccine: Sep 22, 2013 Date of Influenza Vaccine: Nov 22, 2017 Seasonal Allergies Seasonal Allergies: No Past Medical History Surgeries: Yes (MULT KNEE, BACK FUSION, NASAL SURGERY, ROTATOR CUFF REPAIR, RT BREAST ) Adenoidectomy, Appendectomy, Hysterectomy, Lumpectomy, Orthopedic, Tonsillectomy, Tubal Ligation Respiratory: Yes (pulmoanary edema) Asthma, Sleep Apnea, COPD Currently Using CPAP: No Cardiac: Yes (CHF) Chronic Edema/Swelling, High Cholesterol, Hypertension Neurological: Yes Neuropathy Reproductive Disorders: No Female Reproductive Disorders: Denies Sexually Transmitted Disease: No HIV/AIDS: No Genitourinary: Yes (chronic kidney dz) Renal Failure Gastrointestinal: Yes Gastroesophageal Reflux, Gall Bladder Disease Musculoskeletal: Yes (KNEE SURGERIES, BACK SURGERY) Degenerate Disk Disease, Arthritis, Rheumatoid Arthritis, Chronic Back Pain Endocrine: No HEENT: Yes (cataracts removed, ) Loss of Vision: Bilateral Hearing Impairment: Denies Cancer: Yes Breast Did You Recieve Any Treatments: No What Type of Treatment Did You: Surgical Intervention Psychosocial: Yes Anxiety, Depression Integumentary: No Blood Disorders: Yes (IMMUNOGLOBULIN DEFICIENCY) Adverse Reaction/Blood Tranf: No Family Medical History Cancer G8 SISTER Congestive heart failure 19 FATHER Family history: Cardiovascular disease 19 FATHER 19 MOTHER G8 BROTHER Family history: Coronary thrombosis 19 FATHER 19 MOTHER Family history: Hypertension 19 MOTHER Stroke 19 MOTHER G8 BROTHER No Pertinent Family Hx Physical Exam Vital Signs - First Documented 03/04/19 11:27 Temp 36.8 Pulse 69 Resp 20 B/P (MAP) 124/60 (81) Pulse Ox 89 O2 Delivery Nasal Cannula O2 Flow Rate 2.00 Capillary Refill : Height: 5'4.00" Weight: 270lbs. 9.0oz. 122.631828np; 43.72 BMI Method:Stated General Appearance: WD/WN, mild distress Eyes: Bilateral Eye Normal Inspection, Bilateral Eye PERRL, Bilateral Eye EOMI HEENT: PERRL/EOMI, normal ENT inspection, TMs normal, pharynx normal Neck: full range of motion, normal inspection Respiratory: lungs clear, no respiratory distress, no accessory muscle use, decreased breath sounds Cardiovascular: normal peripheral pulses, regular rate, rhythm, no edema Gastrointestinal: non tender, soft Neurologic/Psychiatric: alert, normal mood/affect, oriented x 3 Skin: normal color, warm/dry Progress/Results/Core Measures Suspected Sepsis SIRS Temperature: Pulse: Respiratory Rate: Laboratory Tests 03/04/19 11:58: White Blood Count 5.0 Blood Pressure / Mean: Laboratory Tests 03/04/19 11:58: Creatinine 1.00, Platelet Count 126L, Total Bilirubin 0.7 Results/Orders Lab Results Laboratory Tests Test 03/04/19 11:40 03/04/19 11:55 03/04/19 11:58 Range/Units Blood Gas Puncture Site RT RAD Blood Gas Patient Temperature 36.8 Arterial Blood pH 7.39 7.37-7.43 Arterial Blood Partial Pressure CO2 48 H 35-45 MMHG Arterial Blood Partial Pressure O2 78 L 79-93 MMHG Arterial Blood HCO3 28 H 23-27 MMOL/L Arterial Blood Total CO2 29.9 21.0-31.0 MMOL/L Arterial Blood Oxygen Saturation 96 94-100 % Arterial Blood Base Excess 3.7 H -2.5-2.5 MMOL/L Izaiah Test YES-POS Blood Gas Ventilator Setting NO Blood Gas Inspired Oxygen 2 L B-Type Natriuretic Peptide 26.7 <100.0 PG/ML White Blood Count 5.0 4.3-11.0 10^3/uL Red Blood Count 3.78 L 4.35-5.85 10^6/uL Hemoglobin 12.0 11.5-16.0 G/DL Hematocrit 37 35-52 % Mean Corpuscular Volume 98 80-99 FL Mean Corpuscular Hemoglobin 32 25-34 PG Mean Corpuscular Hemoglobin Concent 32 32-36 G/DL Red Cell Distribution Width 13.7 10.0-14.5 % Platelet Count 126 L 130-400 10^3/uL Mean Platelet Volume 11.0 H 7.4-10.4 FL Neutrophils (%) (Auto) 57 42-75 % Lymphocytes (%) (Auto) 20 12-44 % Monocytes (%) (Auto) 19 H 0-12 % Eosinophils (%) (Auto) 3 0-10 % Basophils (%) (Auto) 0 0-10 % Neutrophils # (Auto) 2.9 1.8-7.8 X 10^3 Lymphocytes # (Auto) 1.0 1.0-4.0 X 10^3 Monocytes # (Auto) 1.0 0.0-1.0 X 10^3 Eosinophils # (Auto) 0.2 0.0-0.3 10^3/uL Basophils # (Auto) 0.0 0.0-0.1 10^3/uL Neutrophils % (Manual) 61 % Lymphocytes % (Manual) 20 % Monocytes % (Manual) 13 % Eosinophils % (Manual) 5 % Basophils % (Manual) 0 % Band Neutrophils 1 % Blood Morphology Comment NORMAL Sodium Level 141 135-145 MMOL/L Potassium Level 3.5 L 3.6-5.0 MMOL/L Chloride Level 105 98-107 MMOL/L Carbon Dioxide Level 25 21-32 MMOL/L Anion Gap 11 5-14 MMOL/L Blood Urea Nitrogen 12 7-18 MG/DL Creatinine 1.00 0.60-1.30 MG/DL Estimat Glomerular Filtration Rate 54 BUN/Creatinine Ratio 12 Glucose Level 96 70-105 MG/DL Calcium Level 9.0 8.5-10.1 MG/DL Corrected Calcium 9.4 8.5-10.1 MG/DL Total Bilirubin 0.7 0.1-1.0 MG/DL Aspartate Amino Transf (AST/SGOT) 18 5-34 U/L Alanine Aminotransferase (ALT/SGPT) 10 0-55 U/L Alkaline Phosphatase 60 40-136 U/L C-Reactive Protein High Sensitivity 0.43 0.00-0.50 MG/DL Total Protein 5.5 L 6.4-8.2 GM/DL Albumin 3.5 3.2-4.5 GM/DL Group A Streptococcus Screen NEGATIVE NEGATIVE Micro Results Microbiology 03/04/19 Influenza Types A,B Antigen (NURIA) - Final, Complete My Orders Orders - KERRY CARRILLO Cbc With Automated Diff (03/04/19 11:33) Comprehensive Metabolic Panel (03/04/19 11:33) Hs C Reactive Protein (03/04/19 11:33) Chest 1 View, Ap/Pa Only (03/04/19 11:33) Albuterol/Ipra Inhalation Soln (Duoneb I (03/04/19 11:45) Svn Small Volume Nebulizer (03/04/19 11:33) O2 (03/04/19 11:33) Influenza A And B Antigens (03/04/19 11:33) Rapid Strep A Screen (03/04/19 11:33) Abg Ph (03/04/19 11:41) Arterial Blood Gas (03/04/19 12:01) Manual Differential (03/04/19 11:58) BNP (03/04/19 12:44) Methylprednisolone Sod Succ (Solu-Medrol (03/04/19 13:00) Medications Given in ED Current Medications Medications Dose Ordered Sig/Jaguar Route Start Time Stop Time Status Last Admin Dose Admin Albuterol/ Ipratropium 3 ml ONCE ONCE INH 03/04/19 11:45 03/04/19 11:46 DC 03/04/19 11:55 3 ML Methylprednisolone Sodium Succinate 62.5 mg ONCE ONCE IVP 03/04/19 13:00 03/04/19 13:01 DC 03/04/19 13:01 62.5 MG Vital Signs/I&O 03/04/19 03/04/19 03/04/19 03/04/19 11:27 11:27 11:28 11:55 Temp 36.8 Pulse 69 Resp 20 B/P (MAP) 124/60 (81) Pulse Ox 89 89 98 O2 Delivery Nasal Cannula Room Air Nasal Cannula Nasal Cannula O2 Flow Rate 2.00 2.00 2.00 Capillary Refill : Progress Note #1: Time: 11:50 Progress Note Bolus and her after another breathing treatment. Seems to have upper respiratory symptoms and a cold given her oxygen dependence and history of COPD we'll check some basic labs, ABG, chest x-ray. Progress Note #2: Time: 12:52 Progress Note Patient said she got modest relief from the breathing treatment. She had just a scant amount of wheezing heard after the breathing treatment so we'll give her a short course of steroids for bronchitis. She is on her baseline 2 L oxygen by nasal cannula and satting 97-100%. Her ABG and straight some mild hypoxia with PaO2 of 78 but compensated COPD. We have discussed return precautions and we'll let her follow up outpatient with Dr. Madera as necessary. Diagnostic Imaging Diagonstic Imaging: Xray Plain Films/CT/US/NM/MRI: chest (1v) Comments Mild basilar infiltrates unchanged from 12/21/18. NAME: SHANNAN SAEED [facility] REC#: [id number] PT STATUS: REG ER : 1945 PHYSICIAN: KERRY CARRILLO MD ADMIT DATE: 03/04/19/ER Draft Date of Exam:03/04/19 CHEST 1 VIEW, AP/PA ONLY INDICATION: Cough and sore throat. Frontal chest obtained at 12:13 p.m. There is cardiomegaly. There is central vascular congestion with borderline edema. There is bibasilar infiltrate versus atelectasis. Port-A-Cath is unchanged. IMPRESSION: Poor inspiration with cardiomegaly and central vascular congestion and borderline edema. There is bibasilar infiltrate which is similar to 12/21/2018. Dictated on workstation # [id number] Dict: 03/04/19 1225 Trans: 03/04/19 1228 [facility] [id number] Interpreted by: SABRINA UPTON MD Electronically signed by: Reviewed: Reviewed by Me Departure Impression Primary Impression: Bronchitis Additional Impression: COPD exacerbation Disposition: 01 HOME, SELF-CARE Condition: Stable Departure-Patient Inst. Decision time for Depature: 12:54 Referrals: SIENNA MADERA DO (PCP/Family) Primary Care Physician Patient Instructions: Exacerbation of COPD, Acute Bronchitis Add. Discharge Instructions: Drink plenty fluids and use a humidifier with vapor rubs. Tessalon Perles 1 capsule every 6 hours as needed for coughing. Use your DuoNeb or albuterol as prescribed for wheezing, coughing, shortness of breath. Return to the ER if it is not helping. Prednisone 40 mg daily for the next 5 days. Start this on 03/05/19. All discharge instructions reviewed with patient and/or family. Voiced understanding. Scripts Prednisone (Prednisone) 20 Mg Tab 40 MG PO DAILY for 5 Days, #10 TAB 0 Refills Prov: KERRY CARRILLO 03/04/19 KERRY CARRILLO Mar 04, 2019 11:36
[2019-03-04] MEDS ORDERED: RT-ALBUTEROL/IPRATROPIUM 3 ML (DUONEB) VIAL INH ONE (11:45)
[2019-03-04 12:17] LABS: BASOPHILS % (AUTO) 0 % (0-10); EOSINOPHILS # (AUTO) 0.2 10^3/uL (0.0-0.3); EOSINOPHILS % (AUTO) 3 % (0-10); HEMATOCRIT 37 % (35-52); LYMPHOCYTES % (AUTO) 20 % (12-44); MEAN CORPUSCULAR HEMOGLOBIN 32 PG (25-34); MEAN CORPUSCULAR HGB CONC 32 G/DL (32-36); MEAN CORPUSCULAR VOLUME 98 FL (80-99); MONOCYTES % (AUTO) 19 % (0-12); NEUTROPHILS # (AUTO) 2.9 X 10^3 (1.8-7.8); NEUTROPHILS % (AUTO) 57 % (42-75); PLATELET COUNT 126 10^3/uL (130-400); RED CELL DISTRIBUTION WIDTH 13.7 % (10.0-14.5)
[2019-03-04 12:22] LABS: ABG BASE EXCESS 3.7 MMOL/L (-2.5-2.5); ABG OXYGEN SATURATION 96 % (94-100); ABG PCO2 48 MMHG (35-45); ABG PH 7.39 (7.37-7.43); ABG PO2 78 MMHG (79-93); ABG TCO2 29.9 MMOL/L (21.0-31.0); ALLENS TEST YES-POS; INSPIRED O2 2 L; PATIENT TEMP 36.8; VENTILATOR NO
--- NOTE | 2019-03-04 12:29 | Diagnostic Imaging Report ---
INDICATION: Cough and sore throat. Frontal chest obtained at 12:13 p.m. There is cardiomegaly. There is central vascular congestion with borderline edema. There is bibasilar infiltrate versus atelectasis. Port-A-Cath is unchanged. IMPRESSION: Poor inspiration with cardiomegaly and central vascular congestion and borderline edema. There is bibasilar infiltrate which is similar to 12/21/2018. Dictated by: Dictated on workstation # [id number]
[2019-03-04 12:32] LABS: ALBUMIN 3.5 GM/DL (3.2-4.5); BILIRUBIN,TOTAL 0.7 MG/DL (0.1-1.0); POTASSIUM 3.5 MMOL/L (3.6-5.0); TOTAL PROTEIN 5.5 GM/DL (6.4-8.2)
[2019-03-04] MEDS ORDERED: PRD20T PO (12:55)
[2019-03-04] MEDS ORDERED: methylPREDNISolone 125 MG (Solu-MEDROL) VIAL IVP ONE (13:00)
--- NOTE | 2019-03-04 13:15 | NUR ---
Pt ready to be dc'd but is unable to get ahold of son for a ride.
[2019-03-04 13:20] LABS: BAND NEUTROPHILS 1 %; BASOPHILS % (MANUAL) 0 %; EOSINOPHILS % (MANUAL) 5 %; LYMPHOCYTES % (MANUAL) 20 %; MONOCYTES % (MANUAL) 13 %; NEUTROPHILS % (MANUAL) 61 %; RBC MORPH NORMAL
--- NOTE | 2019-03-04 13:47 | NUR ---
Danisha at [facility] attempting to arrange transportation back to [facility]. Danisha to return call.
--- NOTE | 2019-03-04 14:21 | NUR ---
Yulia from [facility] reports someone is on the way to pick pt up.
[2019-03-04 15:13] VITALS: BP 142/53
[2019-03-04] MEDS ORDERED: BENZ100C18 PO (15:24)
== END 2019-03-04 15:13 | disposition home or self-care (01) ==
LOC: EDUNIT# 11:26 → ER 11:28
DX: J40 Bronchitis, not specified as acute or chronic (principal); J44.1 Chronic obstructive pulmonary disease with (acute) exacerbation; I10 Essential (primary) hypertension; E78.00 Pure hypercholesterolemia, unspecified; F41.9 Anxiety disorder, unspecified; F32.9 Major depressive disorder, single episode, unspecified; M06.9 Rheumatoid arthritis, unspecified; Z85.3 Personal history of malignant neoplasm of breast; Z99.81 Dependence on supplemental oxygen; Z88.6 Allergy status to analgesic agent; Z88.7 Allergy status to serum and vaccine; Z88.0 Allergy status to penicillin; Z88.2 Allergy status to sulfonamides; Z88.1 Allergy status to other antibiotic agents; Z91.040 Latex allergy status; Z88.8 Allergy status to other drugs, medicaments and biological substances; Z79.02 Long term (current) use of antithrombotics/antiplatelets; Z79.51 Long term (current) use of inhaled steroids; Z79.52 Long term (current) use of systemic steroids; Z87.891 Personal history of nicotine dependence; Z90.89 Acquired absence of other organs; Z90.49 Acquired absence of other specified parts of digestive tract; Z90.710 Acquired absence of both cervix and uterus; Z98.51 Tubal ligation status; Z82.49 Family history of ischemic heart disease and other diseases of the circulatory system
CPT/HCPCS: 36415; 71045; 80053; 82800; 82805; 83880; 85007; 85027; 86141; 87430; 87804; 94640

== ENCOUNTER → 2019-04-21 | Outpatient (CLI) | payer MEDICARE, OTHER ==
[~2019-04-21] MED LIST changes: +BENZ100C18 PO; -MONT10TA24 PO; +MONT10TA26 PO; +PRD20T PO
--- NOTE | 2019-04-21 15:13 | Diagnostic Imaging Report ---
PROCEDURE: US Non-ob pelvis comp/trans. TECHNIQUE: Multiple realtime grayscale images were obtained of the pelvis in various projections endovaginally. Transabdominal imaging was also performed. INDICATION: Pelvic pain and vaginal bleeding for three days. FINDINGS: The uterus and ovaries are surgically absent. No pelvic mass or fluid collection is seen. Images of the bladder are unremarkable. IMPRESSION: Status post hysterectomy and oophorectomy. No pelvic mass or fluid collection is seen. Dictated by: Dictated on workstation # [id number]
== END ==
LOC: RAD 13:11
PROVIDERS: ATTEND Internal Medicine
DX: R10.2 Pelvic and perineal pain (principal); N93.9 Abnormal uterine and vaginal bleeding, unspecified
CPT/HCPCS: 76830; 76856

== ENCOUNTER 2019-11-04 19:33 | Emergency (ER) | payer MEDICARE, OTHER ==
[~2019-11-04] VITALS: Ht 162 cm; Wt 108.0 kg
--- NOTE | 2019-11-04 19:39 | ED General ---
General Chief Complaint: General Problems/Pain Stated Complaint: MUSCLE TWITCHING Source of Information: Patient, EMS History of Present Illness Date Seen by Provider: Nov 04, 2019 Time Seen by Provider: 19:39 Initial Comments 74-year-old female sent in from a retirement. Patient has had a "muscle twitching" is diffuse. There is confusion was been going on today versus for a couple weeks. Patient herself says been going on for a couple weeks she is also seemed to have some underlying dementia and does not provide a good history of present illness. [facility] was also concerned about possible low oxygen saturation. EMS reports that for them her oxygen was in the upper 90s and upon arrival to the ER it was running 100%. Patient herself does not complain of anything. Allergies and Home Medications Allergies Coded Allergies: NSAIDS (Non-Steroidal Anti-Inflamma (Unverified Allergy, Mild, 03/18/09) Influenza Virus Vaccines (Verified Allergy, Unknown, 12/07/18) Penicillins (Verified Allergy, Unknown, 01/03/06) Sulfa (Sulfonamide Antibiotics) (Verified Allergy, Unknown, 01/03/06) aspirin (Verified Allergy, Unknown, 01/03/06) atorvastatin (Verified Allergy, Unknown, 12/07/18) carbamazepine (Verified Allergy, Unknown, 09/20/06) cephalexin (Verified Allergy, Unknown, 01/03/06) iodine (Verified Allergy, Unknown, 01/03/06) latex (Unverified Allergy, Unknown, 06/21/13) meloxicam (Verified Allergy, Unknown, 12/07/18) peanut (Verified Allergy, Unknown, 12/07/18) Home Medications Allopurinol 100 Mg Tablet, 100 MG PO DAILY, (Reported) Ascorbate Calcium 500 Mg Tablet, 500 MG PO DAILY, (Reported) Benzonatate 100 Mg Capsule, 100 MG PO Q6H PRN for COUGH Prescribed by: KERRY CARRILLO on 03/04/19 1524 Bumetanide 2 Mg Tablet, 2 MG PO DAILY, (Reported) Bumetanide 2 Mg Tablet, 2 MG PO DAILY PRN for WEIGHT GAIN >5LBS/DAY, (Reported) Carvedilol 12.5 Mg Tablet, 12.5 MG PO BID, (Reported) Cefdinir 300 Mg Capsule, 300 MG PO BID Prescribed by: SIENNA MADERA on 12/26/18 1013 Cetirizine HCl 10 Mg Tablet, 10 MG PO DAILY, (Reported) Cholecalciferol (Vitamin D3) 2,000 Unit Capsule, 2,000 UNIT PO HS, (Reported) Clopidogrel Bisulfate 75 Mg Tablet, 75 MG PO DAILY, (Reported) Cranberry Fruit 400 Mg Tablet, 400 MG PO BID, (Reported) Duloxetine HCl 60 Mg Capsule.dr, 60 MG PO DAILY, (Reported) Enalapril Maleate 2.5 Mg Tablet, 2.5 MG PO DAILY, (Reported) Esomeprazole Magnesium 40 Mg Cap, 40 MG PO HS, (Reported) Ferrous Sulfate 325 Mg Tablet, 325 MG PO DAILY, (Reported) Fluticasone Propionate 16 Gm [place].susp, 1 SPRAY NS DAILY PRN for ALLERGIES, (Reported) Fluticasone/Salmeterol 1 Each Blst.w.dev, 1 PUFF IH DAILY, (Reported) Gabapentin 300 Mg Capsule, 300 MG PO HS, (Reported) Guaifenesin/Codeine Phosphate 473 Ml Liquid, 5 ML PO Q6H PRN for COUGH, (Reported) Guaifenesin/Dextromethorphan 5 Ml Syrup, 5 ML PO Q6H PRN for COUGH, (Reported) Hydrocortisone Butyrate 15 Gm Cream..g., TP BID PRN for INFLAMMATION, (Reported) Hydroxychloroquine Sulfate 200 Mg Tablet, 200 MG PO 1200,1700, (Reported) Ipratropium [place] 0.2 Mg/1 Ml Solution, 0.2 MG NEB TID PRN for SHORTNESS OF BREATH, (Reported) Ipratropium/Albuterol Sulfate 3 Ml Ampul.neb, 3 ML NEB 0800,1600, (Reported) Menthol/Lanolin/Calamine/Znox 71 Gm Oint, TP UD PRN for IRRITATION, (Reported) APPLY TO JARETT AREA Montelukast Sodium 10 Mg Tablet, 10 MG PO HS Prescribed by: SIENNA MADERA on 12/26/18 1013 Nitrofurantoin Macrocrystal 100 Mg Capsule, 100 MG PO 1700, (Reported) Oxycodone HCl 20 Mg Tablet, 20 MG PO Q6H PRN for PAIN-SEVERE, (Reported) Oxycodone HCl 20 Mg Tablet, 20 MG PO 0600,1400,2200, (Reported) Potassium Chloride 10 Meq Capsule.er, 20 MEQ PO 1200,1700, (Reported) TAKES 2 (10MEQ) CAPSULES Prednisone 10 Mg Tab.ds.pk, 10 MG PO DAILY Take 6 tabs(60mg)daily,decrease by 1 tab(10MG)daily. Prescribed by: SIENNA MADERA on 12/26/18 1013 Prednisone 20 Mg Tab, 40 MG PO DAILY Prescribed by: KERRY CARRILLO on 03/04/19 1255 Simvastatin 20 Mg Tablet, 20 MG PO HS, (Reported) Tolterodine Tartrate 4 Mg Cap, 4 MG PO DAILY, (Reported) Topiramate 25 Mg Tablet, 25 MG PO HS, (Reported) Triamcinolone Acet 15 Gm Cr, TP BID PRN for EYE REDNESS, (Reported) APPLY TO LEFT LEG Vitamin A & D 60 Gm Oint, TP DAILY PRN, (Reported) APPLY TO BLE & FEET Patient Home Medication List Home Medication List Reviewed: Yes Review of Systems Review of Systems Constitutional: no symptoms reported; No chills, No fever, No weakness EENTM: no symptoms reported Respiratory: no symptoms reported Cardiovascular: no symptoms reported Gastrointestinal: no symptoms reported Genitourinary: no symptoms reported Musculoskeletal: see HPI Skin: no symptoms reported Psychiatric/Neurological: See HPI Past [id number] Hx Past Med/Social Hx: Reviewed Nursing Past Med/Soc Hx Patient Social History Type Used: Cigarettes Former Smoker, Quit: Mar 25, 1994 2nd Hand Smoke Exposure: No Recent Hopitalizations: No Immunizations Up To Date Tetanus Booster (TDap): Unknown PED Vaccines UTD: No Date of Pneumonia Vaccine: Sep 22, 2013 Date of Influenza Vaccine: Nov 22, 2017 Seasonal Allergies Seasonal Allergies: No Past Medical History Surgeries: Yes (MULT KNEE, BACK FUSION, NASAL SURGERY, ROTATOR CUFF REPAIR, RT BREAST ) Adenoidectomy, Appendectomy, Hysterectomy, Lumpectomy, Orthopedic, Tonsillectomy, Tubal Ligation Respiratory: Yes (pulmoanary edema) Asthma, Sleep Apnea, COPD Currently Using CPAP: No Cardiac: Yes (CHF) Chronic Edema/Swelling, High Cholesterol, Hypertension Neurological: Yes Neuropathy Reproductive Disorders: No Female Reproductive Disorders: Denies Sexually Transmitted Disease: No HIV/AIDS: No Genitourinary: Yes (chronic kidney dz) Renal Failure Gastrointestinal: Yes Gastroesophageal Reflux, Gall Bladder Disease Musculoskeletal: Yes (KNEE SURGERIES, BACK SURGERY) Degenerate Disk Disease, Arthritis, Rheumatoid Arthritis, Chronic Back Pain Endocrine: No HEENT: Yes (cataracts removed, ) Loss of Vision: Bilateral Hearing Impairment: Denies Cancer: Yes Breast Did You Recieve Any Treatments: No What Type of Treatment Did You: Surgical Intervention Psychosocial: Yes Anxiety, Depression Integumentary: No Blood Disorders: Yes (IMMUNOGLOBULIN DEFICIENCY) Adverse Reaction/Blood Tranf: No Family Medical History Cancer G8 SISTER Congestive heart failure 19 FATHER Family history: Cardiovascular disease 19 FATHER 19 MOTHER G8 BROTHER Family history: Coronary thrombosis 19 FATHER 19 MOTHER Family history: Hypertension 19 MOTHER Stroke 19 MOTHER G8 BROTHER No Pertinent Family Hx Physical Exam Vital Signs Vital Signs - First Documented 11/04/19 19:34 Temp 36.6 Pulse 71 Resp 20 B/P (MAP) 120/55 (76) Pulse Ox 94 O2 Delivery Nasal Cannula O2 Flow Rate 2.00 Capillary Refill : Height, Weight, BMI Height: 5'4.00" Weight: 270lbs. 9.0oz. 122.799806wy; 43.00 BMI Method:Stated General Appearance: No Apparent Distress, Obese HEENT: PERRL/EOMI Respiratory: Lungs Clear, Normal Breath Sounds Cardiovascular: Regular Rate, Rhythm, Other (2+ lower extremity edema) Gastrointestinal: Non Tender, Soft Extremity: Other (cool hands) Neurologic/Psychiatric: Other (patient is alert but unable answer questions appropriately, she seems to have some underlying dementia.) Progress/Results/Core Measures Suspected Sepsis SIRS Temperature: Pulse: Respiratory Rate: Laboratory Tests 11/04/19 20:15: White Blood Count 8.4 Blood Pressure / Mean: Laboratory Tests 11/04/19 20:15: Creatinine 2.53H, INR Comment 1.1, Platelet Count 146, Total Bilirubin 1.0 Results/Orders Lab Results Laboratory Tests Test 11/04/19 20:15 11/04/19 21:44 Range/Units White Blood Count 8.4 4.3-11.0 10^3/uL Red Blood Count 4.22 L 4.35-5.85 10^6/uL Hemoglobin 13.4 11.5-16.0 G/DL Hematocrit 41 35-52 % Mean Corpuscular Volume 96 80-99 FL Mean Corpuscular Hemoglobin 32 25-34 PG Mean Corpuscular Hemoglobin Concent 33 32-36 G/DL Red Cell Distribution Width 13.3 10.0-14.5 % Platelet Count 146 130-400 10^3/uL Mean Platelet Volume 11.5 H 7.4-10.4 FL Neutrophils (%) (Auto) 70 42-75 % Lymphocytes (%) (Auto) 14 12-44 % Monocytes (%) (Auto) 11 0-12 % Eosinophils (%) (Auto) 5 0-10 % Basophils (%) (Auto) 0 0-10 % Neutrophils # (Auto) 5.9 1.8-7.8 X 10^3 Lymphocytes # (Auto) 1.2 1.0-4.0 X 10^3 Monocytes # (Auto) 1.0 0.0-1.0 X 10^3 Eosinophils # (Auto) 0.4 H 0.0-0.3 10^3/uL Basophils # (Auto) 0.0 0.0-0.1 10^3/uL Prothrombin Time 14.4 12.2-14.7 SEC INR Comment 1.1 0.8-1.4 Activated Partial Thromboplast Time 29 24-35 SEC Sodium Level 137 135-145 MMOL/L Potassium Level 3.5 L 3.6-5.0 MMOL/L Chloride Level 102 98-107 MMOL/L Carbon Dioxide Level 25 21-32 MMOL/L Anion Gap 10 5-14 MMOL/L Blood Urea Nitrogen 30 H 7-18 MG/DL Creatinine 2.53 H 0.60-1.30 MG/DL Estimat Glomerular Filtration Rate 19 BUN/Creatinine Ratio 12 Glucose Level 116 H 70-105 MG/DL Calcium Level 8.9 8.5-10.1 MG/DL Corrected Calcium 9.4 8.5-10.1 MG/DL Magnesium Level 1.7 1.6-2.4 MG/DL Total Bilirubin 1.0 0.1-1.0 MG/DL Aspartate Amino Transf (AST/SGOT) 31 5-34 U/L Alanine Aminotransferase (ALT/SGPT) 10 0-55 U/L Alkaline Phosphatase 69 40-136 U/L Ammonia 59 H 11-32 UMOL/L Total Protein 6.0 L 6.4-8.2 GM/DL Albumin 3.4 3.2-4.5 GM/DL Urine Color YELLOW Urine Clarity CLEAR Urine pH 5.5 5-9 Urine Specific [place] >=1.030 1.016-1.022 Urine Protein TRACE H NEGATIVE Urine Glucose (UA) NEGATIVE NEGATIVE Urine Ketones NEGATIVE NEGATIVE Urine Nitrite NEGATIVE NEGATIVE Urine Bilirubin NEGATIVE NEGATIVE Urine Urobilinogen 1.0 < = 1.0 MG/DL Urine Leukocyte Esterase 3+ H NEGATIVE Urine RBC (Auto) TRACE-I NEGATIVE Urine RBC 0-2 /HPF Urine WBC TNTC H /HPF Urine Squamous Epithelial Cells 2-5 /HPF Urine Crystals PRESENT H /LPF Urine Amorphous Sediment MOD DENISE URATES H /LPF Urine Bacteria MODERATE H /HPF Urine Casts NONE /LPF Urine Mucus NEGATIVE /LPF Urine Culture Indicated YES My Orders Orders - GUTIERREZ,MINI L DO Ammonia (11/04/19 19:44) Cbc With Automated Diff (11/04/19 19:44) Comprehensive Metabolic Panel (11/04/19 19:44) Magnesium (11/04/19 19:44) Ua Culture If Indicated (11/04/19 19:44) Protime With Inr (11/04/19 19:52) Partial Thromboplastin Time (11/04/19 19:52) Ed Iv/Invasive Line Start (11/04/19 20:57) Ns Iv 500 Ml (Sodium Chloride 0.9%) (11/04/19 20:57) Urine Culture (11/04/19 21:44) Ciprofloxacin Tablet (Cipro Tablet) (11/04/19 22:30) Medications Given in ED Current Medications Medications Dose Ordered Sig/Jaguar Route Start Time Stop Time Status Last Admin Dose Admin Sodium Chloride 500 ml @ 0 mls/hr Q0M ONCE IV 11/04/19 20:57 11/04/19 20:58 DC 11/04/19 21:10 999 MLS/HR Vital Signs/I&O 11/04/19 19:34 Temp 36.6 Pulse 71 Resp 20 B/P (MAP) 120/55 (76) Pulse Ox 94 O2 Delivery Nasal Cannula O2 Flow Rate 2.00 Capillary Refill : Departure Impression Primary Impression: LEIGHANN (acute kidney injury) Additional Impression: Urinary tract infection Qualified Codes: N39.0 - Urinary tract infection, site not specified Disposition: HOME, SELF-CARE Condition: Stable Departure-Patient Inst. Referrals: SIENNA MADERA DO (PCP/Family) Primary Care Physician Patient Instructions: Acute Kidney Injury (DC), Urinary Tract Infection, Adult (DC) Add. Discharge Instructions: Follow-up with your primary care provider and 2-3 days for recheck of your kidney function Drink plenty of fluids All discharge instructions reviewed with patient and/or family. Voiced understanding. Scripts Ciprofloxacin HCl (Ciprofloxacin HCl) 500 Mg Tablet 500 MG PO BID, #14 TAB Prov: MINI GUTIERREZ DO 11/04/19 MINI GUTIERREZ DO Nov 04, 2019 19:39
[2019-11-04 20:35] LABS: BASOPHILS % (AUTO) 0 % (0-10); EOSINOPHILS # (AUTO) 0.4 10^3/uL (0.0-0.3); EOSINOPHILS % (AUTO) 5 % (0-10); HEMATOCRIT 41 % (35-52); HEMOGLOBIN 13.4 G/DL (11.5-16.0); LYMPHOCYTES # (AUTO) 1.2 X 10^3 (1.0-4.0); LYMPHOCYTES % (AUTO) 14 % (12-44); MEAN CORPUSCULAR HEMOGLOBIN 32 PG (25-34); MEAN CORPUSCULAR HGB CONC 33 G/DL (32-36); MEAN CORPUSCULAR VOLUME 96 FL (80-99); MEAN PLATELET VOLUME 11.5 FL (7.4-10.4); MONOCYTES % (AUTO) 11 % (0-12); NEUTROPHILS # (AUTO) 5.9 X 10^3 (1.8-7.8); NEUTROPHILS % (AUTO) 70 % (42-75); PLATELET COUNT 146 10^3/uL (130-400); WHITE BLOOD COUNT 8.4 10^3/uL (4.3-11.0)
[2019-11-04 20:38] LABS: ALBUMIN 3.4 GM/DL (3.2-4.5); POTASSIUM 3.5 MMOL/L (3.6-5.0)
[2019-11-04 20:39] LABS: CALCIUM 8.9 MG/DL (8.5-10.1); INR 1.1 (0.8-1.4); PROTHROMBIN TIME PATIENT 14.4 SEC (12.2-14.7)
[2019-11-04 20:44] LABS: CREATININE SERUM 2.53 MG/DL (0.60-1.30)
[2019-11-04 20:47] LABS: MAGNESIUM 1.7 MG/DL (1.6-2.4)
[2019-11-04] MEDS ORDERED: NS IV 500 ML 500 ML IV ONE (20:57)
[2019-11-04 21:51] LABS: BILIRUBIN,URINE NEGATIVE (NEGATIVE); CLARITY,URINE CLEAR; COLOR,URINE YELLOW; GLUCOSE, URINE (UA) NEGATIVE (NEGATIVE); KETONES,URINE NEGATIVE (NEGATIVE); LEUKOCYTE ESTERASE ,URINE 3+ (NEGATIVE); NITRITE,URINE NEGATIVE (NEGATIVE); PH,URINE 5.5 (5-9); PROTEIN,URINE TRACE (NEGATIVE)
--- NOTE | 2019-11-04 22:00 | NUR ---
Report from RUIZ Parmar.
[2019-11-04 22:18] LABS: AMORPHOUS SEDIMENT,UR MOD AMOR URATES /LPF; BACTERIA,URINE MODERATE /HPF; RBC,URINE 0-2 /HPF; WBC,URINE TNTC /HPF
[2019-11-04] MEDS ORDERED: CIPR500T4 PO (22:25)
[2019-11-04] MEDS ORDERED: CIPROFLOXACIN 500 MG (CIPRO) TABLET PO SCH (22:30)
--- NOTE | 2019-11-04 23:05 | NUR ---
Called [facility] and advised that pt was ready to be discharged Facility advised they would call transport and have them headed to ER as soon as possible
--- NOTE | 2019-11-04 23:15 | NUR ---
To room to give abx; pt tolerated well.
[2019-11-05 00:01] VITALS: BP 101/72
--- NOTE | 2019-11-05 00:05 | NUR ---
Caregiver Letitia here for patient; report given to her with understanding verbalized. Assisted her with patient into the van.
--- NOTE | 2019-11-05 00:05 | NUR ---
Mony vuong in ED - 11/05/19 at 0418 by [id number] To room to give abx. Pt tolerated PO meds well.
== END 2019-11-05 00:03 | disposition home or self-care (01) ==
LOC: EDUNIT# 19:33 → ER 19:35
DX: N17.9 Acute kidney failure, unspecified (principal); N39.0 Urinary tract infection, site not specified; J44.9 Chronic obstructive pulmonary disease, unspecified; G89.29 Other chronic pain; M54.9 Dorsalgia, unspecified; E78.00 Pure hypercholesterolemia, unspecified; K21.9 Gastro-esophageal reflux disease without esophagitis; F41.9 Anxiety disorder, unspecified; I13.0 Hypertensive heart and chronic kidney disease with heart failure and stage 1 through stage 4 chronic kidney disease, or unspecified chronic kidney disease; N18.9 Chronic kidney disease, unspecified; F32.9 Major depressive disorder, single episode, unspecified; I50.9 Heart failure, unspecified; E66.9 Obesity, unspecified; Z88.6 Allergy status to analgesic agent; Z88.0 Allergy status to penicillin; Z88.2 Allergy status to sulfonamides; Z88.1 Allergy status to other antibiotic agents; Z88.8 Allergy status to other drugs, medicaments and biological substances; Z91.040 Latex allergy status; Z91.041 Radiographic dye allergy status; Z82.49 Family history of ischemic heart disease and other diseases of the circulatory system; Z80.9 Family history of malignant neoplasm, unspecified; Z85.3 Personal history of malignant neoplasm of breast; Z87.891 Personal history of nicotine dependence; Z79.52 Long term (current) use of systemic steroids; Z79.891 Long term (current) use of opiate analgesic; Z68.41 Body mass index [BMI] 40.0-44.9, adult
CPT/HCPCS: 36415; 80053; 81000; 82140; 83735; 85025; 85610; 85730; 87077; 87088

== ENCOUNTER 2019-11-10 13:43 | Inpatient (IN) | payer MEDICARE, OTHER ==
[~2019-11-10] VITALS: Ht 157.5 cm; Wt 111.5 kg
[~2019-11-10 13:43] MED LIST changes: +CIPR500T4 PO; -ENAL2.5T PO; +ENLP2.5T PO
--- NOTE | 2019-11-10 14:04 | ED General ---
General Chief Complaint: Altered Mental Status Stated Complaint: AMSE Source of Information: Patient Exam Limitations: No Limitations History of Present Illness Date Seen by Provider: Nov 10, 2019 Time Seen by Provider: 14:04 Initial Comments to ER via EMS from local assisted living facility with hx of chf, copd, lymphedema with reports of altered mental status, lethargy, slowed speech, swelling all over, hypotension. She is currently on Cipro for urinary tract infection diagnosed here in the emergency room last week. Reports that she hasn't necessarily worsened but certainly has not improved. Timing/Duration: 2-3 Days Severity: Moderate Allergies and Home Medications Allergies Coded Allergies: NSAIDS (Non-Steroidal Anti-Inflamma (Unverified Allergy, Mild, 03/18/09) Influenza Virus Vaccines (Verified Allergy, Unknown, 12/07/18) Penicillins (Verified Allergy, Unknown, 01/03/06) Sulfa (Sulfonamide Antibiotics) (Verified Allergy, Unknown, 01/03/06) aspirin (Verified Allergy, Unknown, 01/03/06) atorvastatin (Verified Allergy, Unknown, 12/07/18) carbamazepine (Verified Allergy, Unknown, 09/20/06) cephalexin (Verified Allergy, Unknown, 01/03/06) iodine (Verified Allergy, Unknown, 01/03/06) latex (Unverified Allergy, Unknown, 06/21/13) meloxicam (Verified Allergy, Unknown, 12/07/18) peanut (Verified Allergy, Unknown, 12/07/18) Home Medications Allopurinol 100 Mg Tablet, 100 MG PO DAILY, (Reported) Ascorbate Calcium 500 Mg Tablet, 500 MG PO DAILY, (Reported) Benzonatate 100 Mg Capsule, 100 MG PO Q6H PRN for COUGH Prescribed by: KERRY CARRILLO on 03/04/19 1524 Bumetanide 2 Mg Tablet, 2 MG PO DAILY, (Reported) Bumetanide 2 Mg Tablet, 2 MG PO DAILY PRN for WEIGHT GAIN >5LBS/DAY, (Reported) Carvedilol 12.5 Mg Tablet, 12.5 MG PO BID, (Reported) Cefdinir 300 Mg Capsule, 300 MG PO BID Prescribed by: SIENNA MADERA on 12/26/18 1013 Cetirizine HCl 10 Mg Tablet, 10 MG PO DAILY, (Reported) Cholecalciferol (Vitamin D3) 2,000 Unit Capsule, 2,000 UNIT PO HS, (Reported) Ciprofloxacin HCl 500 Mg Tablet, 500 MG PO BID Prescribed by: MINI GUTIERREZ on 11/04/19 6134 Clopidogrel Bisulfate 75 Mg Tablet, 75 MG PO DAILY, (Reported) Cranberry Fruit 400 Mg Tablet, 400 MG PO BID, (Reported) Duloxetine HCl 60 Mg Capsule.dr, 60 MG PO DAILY, (Reported) Enalapril Maleate 2.5 Mg Tablet, 2.5 MG PO DAILY, (Reported) Esomeprazole Magnesium 40 Mg Cap, 40 MG PO HS, (Reported) Ferrous Sulfate 325 Mg Tablet, 325 MG PO DAILY, (Reported) Fluticasone Propionate 16 Gm [place].susp, 1 SPRAY NS DAILY PRN for ALLERGIES, (Reported) Fluticasone/Salmeterol 1 Each Blst.w.dev, 1 PUFF IH DAILY, (Reported) Gabapentin 300 Mg Capsule, 300 MG PO HS, (Reported) Guaifenesin/Codeine Phosphate 473 Ml Liquid, 5 ML PO Q6H PRN for COUGH, (R eported) Guaifenesin/Dextromethorphan 5 Ml Syrup, 5 ML PO Q6H PRN for COUGH, (Reported) Hydrocortisone Butyrate 15 Gm Cream..g., TP BID PRN for INFLAMMATION, (Reported) Hydroxychloroquine Sulfate 200 Mg Tablet, 200 MG PO 1200,1700, (Reported) Ipratropium [place] 0.2 Mg/1 Ml Solution, 0.2 MG NEB TID PRN for SHORTNESS OF BREATH, (Reported) Ipratropium/Albuterol Sulfate 3 Ml Ampul.neb, 3 ML NEB 0800,1600, (Reported) Menthol/Lanolin/Calamine/Znox 71 Gm Oint, TP UD PRN for IRRITATION, (Reported) APPLY TO JARETT AREA Montelukast Sodium 10 Mg Tablet, 10 MG PO HS Prescribed by: SIENNA MADERA on 12/26/18 1013 Nitrofurantoin Macrocrystal 100 Mg Capsule, 100 MG PO 1700, (Reported) Oxycodone HCl 20 Mg Tablet, 20 MG PO Q6H PRN for PAIN-SEVERE, (Reported) Oxycodone HCl 20 Mg Tablet, 20 MG PO 0600,1400,2200, (Reported) Potassium Chloride 10 Meq Capsule.er, 20 MEQ PO 1200,1700, (Reported) TAKES 2 (10MEQ) CAPSULES Prednisone 10 Mg Tab.ds.pk, 10 MG PO DAILY Take 6 tabs(60mg)daily,decrease by 1 tab(10MG)daily. Prescribed by: SIENNA MADERA on 12/26/18 1013 Prednisone 20 Mg Tab, 40 MG PO DAILY Prescribed by: KERRY CARRILLO on 03/04/19 1255 Simvastatin 20 Mg Tablet, 20 MG PO HS, (Reported) Tolterodine Tartrate 4 Mg Cap, 4 MG PO DAILY, (Reported) Topiramate 25 Mg Tablet, 25 MG PO HS, (Reported) Triamcinolone Acet 15 Gm Cr, TP BID PRN for EYE REDNESS, (Reported) APPLY TO LEFT LEG Vitamin A & D 60 Gm Oint, TP DAILY PRN, (Reported) APPLY TO BLE & FEET Patient Home Medication List Home Medication List Reviewed: Yes Review of Systems Review of Systems Constitutional: other (able to obtain due to altered mental status) Past Yggqxkc-Qldvos-Nufmhg Hx Patient Social History Type Used: Cigarettes Former Smoker, Quit: Mar 25, 1994 2nd Hand Smoke Exposure: No Recent Hopitalizations: No Immunizations Up To Date Tetanus Booster (TDap): Unknown PED Vaccines UTD: No Date of Pneumonia Vaccine: Sep 22, 2013 Date of Influenza Vaccine: Nov 22, 2017 Seasonal Allergies Seasonal Allergies: No Past Medical History Surgeries: Yes (MULT KNEE, BACK FUSION, NASAL SURGERY, ROTATOR CUFF REPAIR, RT BREAST ) Adenoidectomy, Appendectomy, Hysterectomy, Lumpectomy, Orthopedic, Tonsillectomy, Tubal Ligation Respiratory: Yes (pulmoanary edema) Asthma, Sleep Apnea, COPD Currently Using CPAP: No Cardiac: Yes (CHF) Chronic Edema/Swelling, High Cholesterol, Hypertension Neurological: Yes Neuropathy Reproductive Disorders: No Female Reproductive Disorders: Denies Sexually Transmitted Disease: No HIV/AIDS: No Genitourinary: Yes (chronic kidney dz) Renal Failure Gastrointestinal: Yes Gastroesophageal Reflux, Gall Bladder Disease Musculoskeletal: Yes (KNEE SURGERIES, BACK SURGERY) Degenerate Disk Disease, Arthritis, Rheumatoid Arthritis, Chronic Back Pain Endocrine: No HEENT: Yes (cataracts removed, ) Loss of Vision: Bilateral Hearing Impairment: Denies Cancer: Yes Breast Did You Recieve Any Treatments: No What Type of Treatment Did You: Surgical Intervention Psychosocial: Yes Anxiety, Depression Integumentary: No Blood Disorders: Yes (IMMUNOGLOBULIN DEFICIENCY) Adverse Reaction/Blood Tranf: No Family Medical History Cancer G8 SISTER Congestive heart failure 19 FATHER Family history: Cardiovascular disease 19 FATHER 19 MOTHER G8 BROTHER Family history: Coronary thrombosis 19 FATHER 19 MOTHER Family history: Hypertension 19 MOTHER Stroke 19 MOTHER G8 BROTHER No Pertinent Family Hx Physical Exam Vital Signs Vital Signs - First Documented 11/10/19 13:53 Temp 36.6 Pulse 91 Resp 17 B/P (MAP) 106/90 (95) Pulse Ox 91 O2 Delivery Nasal Cannula O2 Flow Rate 3.00 Capillary Refill : Height, Weight, BMI Height: 5'4.00" Weight: 270lbs. 9.0oz. 122.559887rt; 41.00 BMI Method:Stated General Appearance: No Apparent Distress, Chronically ill, Obese, Other ( pedal edema up to the knees. Left lower extremity is a little bit red. Has some audible excretory wheezing. Wears oxygen 2 L per nasal cannula [id number]. EMS noted a blood pressure in route to the hospital of about 90/50 but due to the general edema were hesitant to give IV fluids. ) HEENT: PERRL/EOMI, Normal ENT Inspection Neck: Full Range of Motion, Normal Inspection Respiratory: No Accessory Muscle Use, No Respiratory Distress, Wheezing Cardiovascular: Regular Rate, Rhythm, Normal Peripheral Pulses Gastrointestinal: Non Tender, Soft Extremity: Pedal Edema, Other Neurologic/Psychiatric: Alert, Other (when asked how she is, she replies "I'm fine", which I would tend to disagree with. Jerking movements of both upper extremities seen intermittently) Skin: Normal Color, Warm/Dry Focused Exam Lactate Level 11/10/19 13:55: Lactic Acid Level 1.11 Lactic Acid Level Laboratory Tests Test 11/10/19 13:55 Lactic Acid Level 1.11 MMOL/L (0.50-2.00) Progress/Results/Core Measures Suspected Sepsis SIRS Temperature: Pulse: Respiratory Rate: Laboratory Tests 11/10/19 13:55: White Blood Count 8.5 Blood Pressure / Mean: 11/10/19 13:55: Lactic Acid Level 1.11 Laboratory Tests 11/10/19 13:55: Creatinine 3.01#H, Platelet Count 162, Total Bilirubin 1.0 Results/Orders Lab Results Laboratory Tests Test 11/10/19 13:55 11/10/19 14:45 11/10/19 15:15 Range/Units White Blood Count 8.5 4.3-11.0 10^3/uL Red Blood Count 3.96 L 4.35-5.85 10^6/uL Hemoglobin 12.5 11.5-16.0 G/DL Hematocrit 39 35-52 % Mean Corpuscular Volume 98 80-99 FL Mean Corpuscular Hemoglobin 32 25-34 PG Mean Corpuscular Hemoglobin Concent 32 32-36 G/DL Red Cell Distribution Width 14.0 10.0-14.5 % Platelet Count 162 130-400 10^3/uL Mean Platelet Volume 11.1 H 7.4-10.4 FL Neutrophils (%) (Auto) 75 42-75 % Lymphocytes (%) (Auto) 12 12-44 % Monocytes (%) (Auto) 10 0-12 % Eosinophils (%) (Auto) 3 0-10 % Basophils (%) (Auto) 0 0-10 % Neutrophils # (Auto) 6.3 1.8-7.8 X 10^3 Lymphocytes # (Auto) 1.0 1.0-4.0 X 10^3 Monocytes # (Auto) 0.9 0.0-1.0 X 10^3 Eosinophils # (Auto) 0.3 0.0-0.3 10^3/uL Basophils # (Auto) 0.0 0.0-0.1 10^3/uL Sodium Level 136 135-145 MMOL/L Potassium Level 4.3 3.6-5.0 MMOL/L Chloride Level 102 98-107 MMOL/L Carbon Dioxide Level 26 21-32 MMOL/L Anion Gap 8 5-14 MMOL/L Blood Urea Nitrogen 28 H 7-18 MG/DL Creatinine 3.01 #H 0.60-1.30 MG/DL Estimat Glomerular Filtration Rate 15 Glucose Level 104 70-105 MG/DL Lactic Acid Level 1.11 0.50-2.00 MMOL/L Calcium Level 8.9 8.5-10.1 MG/DL Corrected Calcium 9.5 8.5-10.1 MG/DL Magnesium Level 1.6 1.6-2.4 MG/DL Total Bilirubin 1.0 0.1-1.0 MG/DL Aspartate Amino Transf (AST/SGOT) 23 5-34 U/L Alanine Aminotransferase (ALT/SGPT) 11 0-55 U/L Alkaline Phosphatase 57 40-136 U/L B-Type Natriuretic Peptide 35.4 <100.0 PG/ML Total Protein 5.6 L 6.4-8.2 GM/DL Albumin 3.2 3.2-4.5 GM/DL Thyroid Stimulating Hormone (TSH) 1.48 0.35-4.94 UIU/ML Free Thyroxine 0.91 0.70-1.48 NG/DL Blood Gas Puncture Site LT RAD Blood Gas Patient Temperature 36.6 Arterial Blood pH 7.33 *L 7.37-7.43 Arterial Blood Partial Pressure CO2 52 H 35-45 MMHG Arterial Blood Partial Pressure O2 67 L 79-93 MMHG Arterial Blood HCO3 27 23-27 MMOL/L Arterial Blood Total CO2 28.2 21.0-31.0 MMOL/L Arterial Blood Oxygen Saturation 92 L 94-100 % Arterial Blood Base Excess 1.2 -2.5-2.5 MMOL/L Izaiah Test YES-POS Blood Gas Ventilator Setting NO Blood Gas Inspired Oxygen 3 L Urine Color YELLOW Urine Clarity SL CLOUDY Urine pH 5.0 5-9 Urine Specific [place] >=1.030 1.016-1.022 Urine Protein TRACE H NEGATIVE Urine Glucose (UA) NEGATIVE NEGATIVE Urine Ketones NEGATIVE NEGATIVE Urine Nitrite NEGATIVE NEGATIVE Urine Bilirubin NEGATIVE NEGATIVE Urine Urobilinogen 0.2 < = 1.0 MG/DL Urine Leukocyte Esterase 1+ H NEGATIVE Urine RBC (Auto) NEGATIVE NEGATIVE Urine RBC NONE /HPF Urine WBC RARE /HPF Urine Squamous Epithelial Cells 5-10 /HPF Urine Crystals NONE /LPF Urine Amorphous Sediment MOD DENISE URATES H /LPF Urine Bacteria MODERATE H /HPF Urine Casts NONE /LPF Urine Mucus NEGATIVE /LPF Urine Culture Indicated NO My Orders Orders - ROE BAUTISTA COLOR FINISHER Cbc With Automated Diff (11/10/19 13:47) Comprehensive Metabolic Panel (11/10/19 13:47) Ua Culture If Indicated (11/10/19 13:47) Ed Iv/Invasive Line Start (11/10/19 13:47) Blood Culture (11/10/19 13:47) Lactic Acid Analyzer (11/10/19 13:47) Ekg Tracing (11/10/19 13:47) BNP (11/10/19 13:47) Chest 1 View, Ap/Pa Only (11/10/19 13:47) Magnesium (11/10/19 13:47) Thyroid Stimulating Hormone (11/10/19 13:47) Free T4 (Free Thyroxine) (11/10/19 13:47) Albuterol/Ipra Inhalation Soln (Duoneb I (11/10/19 14:15) Svn Small Volume Nebulizer (11/10/19 14:04) Ns Iv 500 Ml (Sodium Chloride 0.9%) (11/10/19 14:45) Arterial Blood Gas (11/10/19 14:30) Arterial Blood Draw (11/10/19 14:45) Medications Given in ED Current Medications Medications Dose Ordered Sig/Jaguar Route Start Time Stop Time Status Last Admin Dose Admin Albuterol/ Ipratropium 3 ml ONCE ONCE INH 11/10/19 14:15 11/10/19 14:16 DC 11/10/19 14:51 3 ML Vital Signs/I&O 11/10/19 11/10/19 13:53 14:51 Temp 36.6 Pulse 91 Resp 17 B/P (MAP) 106/90 (95) Pulse Ox 91 97 O2 Delivery Nasal Cannula Nasal Cannula O2 Flow Rate 3.00 3.00 Capillary Refill : Departure Communication (Admissions) Time/Spoke to Admitting Phy: 15:[address] Kent, agrees to admit. Spoke with the son Nadir, states she is a DO NOT RESUSCITATE status. He is not sure if she would want dialysis if it were necessary if kidney function worsened and she had other indication for dialysis. He states that he thinks she's had it before but isn't sure if she would want to do it again. He'll talk with his siblings and let me know. Impression Primary Impression: COPD exacerbation Additional Impressions: CHF (congestive heart failure) LEIGHANN (acute kidney injury) Disposition: ADMITTED INPATIENT Condition: Stable Admissions Decision to Admit Reason: Admit from ER (General) Decision to Admit/Date: Nov 10, 2019 Time/Decision to Admit Time: 15:42 Departure-Patient Inst. Referrals: SIENNA MADERA DO (PCP/Family) Primary Care Physician ROE BAUTISTA APRN Nov 10, 2019 14:04
[2019-11-10 14:12] LABS: BASOPHILS % (AUTO) 0 % (0-10); EOSINOPHILS # (AUTO) 0.3 10^3/uL (0.0-0.3); EOSINOPHILS % (AUTO) 3 % (0-10); HEMATOCRIT 39 % (35-52); HEMOGLOBIN 12.5 G/DL (11.5-16.0); LYMPHOCYTES % (AUTO) 12 % (12-44); MEAN CORPUSCULAR HEMOGLOBIN 32 PG (25-34); MEAN CORPUSCULAR HGB CONC 32 G/DL (32-36); MEAN CORPUSCULAR VOLUME 98 FL (80-99); MEAN PLATELET VOLUME 11.1 FL (7.4-10.4); MONOCYTES # (AUTO) 0.9 X 10^3 (0.0-1.0); MONOCYTES % (AUTO) 10 % (0-12); NEUTROPHILS # (AUTO) 6.3 X 10^3 (1.8-7.8); NEUTROPHILS % (AUTO) 75 % (42-75); PLATELET COUNT 162 10^3/uL (130-400); WHITE BLOOD COUNT 8.5 10^3/uL (4.3-11.0)
[2019-11-10] MEDS ORDERED: RT-ALBUTEROL/IPRATROPIUM 3 ML (DUONEB) VIAL INH ONE (14:15)
[2019-11-10 14:20] LABS: ALBUMIN 3.2 GM/DL (3.2-4.5)
[2019-11-10 14:21] LABS: POTASSIUM 4.3 MMOL/L (3.6-5.0)
[2019-11-10 14:22] LABS: CALCIUM 8.9 MG/DL (8.5-10.1)
[2019-11-10 14:23] LABS: TOTAL PROTEIN 5.6 GM/DL (6.4-8.2)
[2019-11-10 14:29] LABS: MAGNESIUM 1.6 MG/DL (1.6-2.4)
--- NOTE | 2019-11-10 14:37 | Diagnostic Imaging Report ---
INDICATION: Weakness. Comparison made with prior examination from 03/04/2019. FINDINGS: There is cardiomegaly. There is venous congestion. There are bibasilar infiltrates left greater than right. There is a left pleural effusion. There is no pneumothorax. Mediastinum is unremarkable. Lmuant-s-Mtyf catheter overlies right hemithorax and has its tip in the right atrium. IMPRESSION: Bibasilar infiltrates left greater than right with left pleural effusion. Cardiomegaly and some central pulmonary venous congestion. Dictated by: Dictated on workstation # [id number]
[2019-11-10] MEDS ORDERED: NS IV 500 ML 500 ML IV SCH (14:45)
[2019-11-10 14:51] LABS: FREE T4 (FREE THYROXINE) 0.91 NG/DL (0.70-1.48)
[2019-11-10 14:51] LABS: ABG BASE EXCESS 1.2 MMOL/L (-2.5-2.5); ABG OXYGEN SATURATION 92 % (94-100); ABG PCO2 52 MMHG (35-45); ABG PO2 67 MMHG (79-93); ABG TCO2 28.2 MMOL/L (21.0-31.0)
[2019-11-10 14:53] LABS: ABG PH 7.33 (7.37-7.43); ALLENS TEST YES-POS; INSPIRED O2 3 L; PATIENT TEMP 36.6; VENTILATOR NO
[2019-11-10 15:20] LABS: BILIRUBIN,URINE NEGATIVE (NEGATIVE); CLARITY,URINE SL CLOUDY; COLOR,URINE YELLOW; GLUCOSE, URINE (UA) NEGATIVE (NEGATIVE); KETONES,URINE NEGATIVE (NEGATIVE); LEUKOCYTE ESTERASE ,URINE 1+ (NEGATIVE); NITRITE,URINE NEGATIVE (NEGATIVE); PROTEIN,URINE TRACE (NEGATIVE)
[2019-11-10 15:29] LABS: BACTERIA,URINE MODERATE /HPF; WBC,URINE RARE /HPF
[2019-11-10 15:30] LABS: AMORPHOUS SEDIMENT,UR MOD AMOR URATES /LPF
[2019-11-10 16:50] VITALS: BP 137/82
--- NOTE | 2019-11-10 17:05 | NUR ---
FOR ADMITTING PHYSICAL ASSESSMENT VIEW SHIFT PHYSICAL ASSESSMENT AT [id number].
[2019-11-10 17:10] VITALS: BP 137/82
[2019-11-10] MEDS: ENOXAPARIN 30 MG/0.3 ML (LOVENOX) SYR SC SCH (17:22)
[2019-11-10] MEDS: methylPREDNISolone 40 MG/ML (Solu-MEDROL) VIAL IV SCH (17:22)
[2019-11-10] MEDS: LACTATED RINGERS 1,000 ML IV SCH (17:22)
[2019-11-10 17:40] LABS: CREATININE SERUM 3.05 MG/DL (0.60-1.30)
[2019-11-10 18:09] VITALS: BP 137/82
[2019-11-10] MEDS: RT-ALBUTEROL/IPRATROPIUM 3 ML (DUONEB) VIAL INH SCH ×2 (19:04→22:40)
[2019-11-10 20:00] VITALS: BP 136/63
[2019-11-10 23:20] VITALS: BP 153/65
[2019-11-11] VITALS (7 sets, daily range): BP systolic 131–164; BP diastolic 67–86
[2019-11-11] MEDS: methylPREDNISolone 40 MG/ML (Solu-MEDROL) VIAL IV SCH (00:06)
[2019-11-11] MEDS: RT-ALBUTEROL/IPRATROPIUM 3 ML (DUONEB) VIAL INH SCH ×6 (02:18→22:27)
[2019-11-11 02:29] LABS: BASOPHILS % (AUTO) 0 % (0-10); EOSINOPHILS % (AUTO) 0 % (0-10); HEMATOCRIT 39 % (35-52); HEMOGLOBIN 12.8 G/DL (11.5-16.0); LYMPHOCYTES # (AUTO) 0.5 X 10^3 (1.0-4.0); LYMPHOCYTES % (AUTO) 4 % (12-44); MEAN CORPUSCULAR HEMOGLOBIN 31 PG (25-34); MEAN CORPUSCULAR HGB CONC 33 G/DL (32-36); MEAN CORPUSCULAR VOLUME 96 FL (80-99); MEAN PLATELET VOLUME 10.9 FL (7.4-10.4); MONOCYTES # (AUTO) 0.1 X 10^3 (0.0-1.0); MONOCYTES % (AUTO) 1 % (0-12); NEUTROPHILS # (AUTO) 12.2 X 10^3 (1.8-7.8); NEUTROPHILS % (AUTO) 95 % (42-75); PLATELET COUNT 148 10^3/uL (130-400); WHITE BLOOD COUNT 12.8 10^3/uL (4.3-11.0)
[2019-11-11 02:43] LABS: ALBUMIN 3.1 GM/DL (3.2-4.5); POTASSIUM 4.5 MMOL/L (3.6-5.0)
[2019-11-11 02:44] LABS: CALCIUM 8.7 MG/DL (8.5-10.1)
[2019-11-11 02:46] LABS: TOTAL PROTEIN 5.5 GM/DL (6.4-8.2)
[2019-11-11 02:47] LABS: BILIRUBIN,TOTAL 0.8 MG/DL (0.1-1.0)
[2019-11-11 02:49] LABS: CREATININE SERUM 2.92 MG/DL (0.60-1.30)
[2019-11-11] MEDS: LACTATED RINGERS 1,000 ML IV SCH ×2 (04:59→17:51)
[2019-11-11] MEDS ORDERED: predniSONE 20 MG TAB PO ONE (08:00)
--- NOTE | 2019-11-11 10:30 | NUR ---
Report from Max MELCHOR, patient to room 425, family at bedside. Patient oriented to room and call light. Will assume care of patient at this time.
--- NOTE | 2019-11-11 11:26 | History & Physical-Hospitalist ---
History of Present Illness HPI/Chief Complaint this is a 74-year-old white female who resides at [facility]. She was brought to the emergency room with increased confusion. Chest x-ray was normal but she was found to be dehydrated with acute kidney injury. In addition she had evidence of urinary tract infection. UA from the showed Escherichia coli sensitive to Rocephin and Cipro. She had been placed on Cipro without improvement. At the time of my interview this morning she does not know where she is but is awake and otherwise alert. Her son is present and fills in the additional history. Source: family Exam Limitations: clinical condition Date Seen 11/11/19 Time Seen by a Provider: 10:00 Attending Physician Hannah Kent MD PCP Clare Parada DO Referring Physician Date of Admission Nov 10, 2019 at 15:52 Home Medications & Allergies Home Medications Reviewed patient Home Medication Reconciliation performed by pharmacy medication reconciliations ammonia refrigeration technician and/or nursing. Patients Allergies have been reviewed. Allergies Allergies Coded Allergies NSAIDS (Non-Steroidal Anti-Inflamma (Unverified Allergy, Mild, 03/18/09) Influenza Virus Vaccines (Verified Allergy, Unknown, 12/07/18) Penicillins (Verified Allergy, Unknown, 01/03/06) Sulfa (Sulfonamide Antibiotics) (Verified Allergy, Unknown, 01/03/06) aspirin (Verified Allergy, Unknown, 01/03/06) atorvastatin (Verified Allergy, Unknown, 12/07/18) carbamazepine (Verified Allergy, Unknown, 09/20/06) cephalexin (Verified Allergy, Unknown, 01/03/06) iodine (Verified Allergy, Unknown, 01/03/06) latex (Unverified Allergy, Unknown, 06/21/13) meloxicam (Verified Allergy, Unknown, 12/07/18) peanut (Verified Allergy, Unknown, 12/07/18) Past Vjpzoxa-Obapfc-Pnwhsf Hx Past Med/Social Hx: Reviewed Nursing Past Med/Soc Hx Patient Social History Marrital Status: Employed/Student: retired Alcohol Use: Denies Use Recreational Drug Use: No Former Smoker, Quit: Mar 25, 1994 Type Used: Cigarettes 2nd Hand Smoke Exposure: No Recent Foreign Travel: No Contact w/other who traveled: No Recent Hopitalizations: No Recent Infectious Disease Expo: No Immunizations Up To Date Tetanus Booster (TDap): Unknown Pediatric: No Date of Pneumonia Vaccine: Sep 22, 2013 Date of Influenza Vaccine: Nov 22, 2017 Seasonal Allergies Seasonal Allergies: No Past Medical History Surgeries: Adenoidectomy, Appendectomy, Hysterectomy, Lumpectomy, Orthopedic, Tonsillectomy, Tubal Ligation Respiratory: COPD, Pneumonia, Sleep Apnea Currently Using CPAP: No Cardiac: Chronic Edema/Swelling, High Cholesterol, Hypertension Neurological: Neuropathy Reproductive: No Sexually Transmitted Disease: No HIV/AIDS: No Female Reproductive Disorders: Denies Genitourinary: Renal Failure Gastrointestinal: Gastroesophageal Reflux, Gall Bladder Disease Musculoskeletal: Degenerate Disk Disease, Arthritis, Rheumatoid Arthritis, Chronic Back Pain Loss of Vision: Bilateral Hearing Impairment: Denies Cancer: Breast Did You Recieve Any Treatments: No What Type of Treatment Did You: Surgical Intervention Psychosocial: Anxiety, Depression History of Blood Disorders: Yes (IMMUNOGLOBULIN DEFICIENCY) Adverse Reaction to Blood [place]: No Family History Cancer G8 SISTER Congestive heart failure 19 FATHER Family history: Cardiovascular disease 19 FATHER 19 MOTHER G8 BROTHER Family history: Coronary thrombosis 19 FATHER 19 MOTHER Family history: Hypertension 19 MOTHER Stroke 19 MOTHER G8 BROTHER No Pertinent Family Hx Review of Systems Constitutional: see HPI, weakness, other (confusion) EENTM: no symptoms reported Respiratory: no symptoms reported Cardiovascular: no symptoms reported Gastrointestinal: no symptoms reported Genitourinary: no symptoms reported Musculoskeletal: no symptoms reported Psychiatric/Neurological: Weakness Physical Exam Physical Exam Vital Signs Vital Signs - First Documented 11/10/19 11/10/19 13:53 17:10 Temp 36.6 Pulse 91 Resp 17 B/P (MAP) 106/90 (95) Pulse Ox 91 O2 Delivery Nasal Cannula O2 Flow Rate 3.00 FiO2 36 Capillary Refill : Less Than 3 Seconds Height, Weight, BMI Height: 5'4.00" Weight: 270lbs. 9.0oz. 122.835599fo; 44.34 BMI Method:Stated General Appearance: Chronically ill HEENT: Normal ENT Inspection Neck: Limited Range of Motion Respiratory: Chest Non Tender, Lungs Clear, Normal Breath Sounds, No Accessory Muscle Use, No Respiratory Distress Cardiovascular: Regular Rate, Rhythm, No Edema, Other (chronic venous stasis changes) Gastrointestinal: Normal Bowel Sounds, Soft Rectal: Deferred Back: Normal Inspection Extremity: Non Tender, No Pedal Edema Neurologic/Psychiatric: Alert, Disoriented Skin: Normal Color, Warm/Dry Results Results/Procedures Labs Laboratory Tests 11/10/19 13:55 11/11/19 02:20 Patient resulted labs reviewed. Imaging: Reviewed Imaging Report Assessment/Plan Admission Diagnosis acute kidney injury acute on chronic Urinary tract infection with Escherichia coli greater than 10 to the fifth Mental status changes most likely secondary to urinary tract infection CREST; on steroids History of CHF-with mild diastolic dysfunction currently compensated with dehydration hold diuretics Chronic pain issues with debilitated state Coronary artery disease COPD coronary artery disease minimal History of chronic venous stasis Plan for gentle fluid hydration and antibiotic physical therapy and dispensation back to [facility] Admission Status: Observation Clinical Quality Measures DVT/VTE Risk/Contraindication: Risk Factor Score Per Nursin RFS Level Per Nursing on Admit: 4+=Very High Copy Copies To 1: CLARE PARADA KATHLEEN M MD Nov 11, 2019 11:26
[2019-11-11] MEDS ORDERED: NON-FORMULARY MEDICATION 1 EA EA (Potassium Chloride 20 MEQ) PO SCH (12:00)
[2019-11-11] MEDS ORDERED: BUMETANIDE 1 MG (BUMEX) TAB PO PRN (12:30)
[2019-11-11] MEDS: HYDROXYCHLOROQUINE 200 MG (PLAQUENIL) TAB PO SCH ×2 (13:18→17:51)
[2019-11-11] MEDS: cefTRIAXone FOR IV USE 1,000 MG in WATER (STERILE) FOR INJECTION 10 ML IV SCH (13:18)
[2019-11-11] MEDS: ENOXAPARIN 30 MG/0.3 ML (LOVENOX) SYR SC SCH (17:51)
[2019-11-11] MEDS: SIMvastatin 20 MG (ZOCOR) TAB PO SCH (19:54)
[2019-11-11] MEDS: GABAPENTIN 300 MG (NEURONTIN) CAP PO SCH (19:54)
[2019-11-11] MEDS: toPIRamate 25 MG (TOPAMAX) TAB PO SCH (19:55)
[2019-11-11] MEDS: CARVEDILOL 12.5 MG (COREG) TABLET PO SCH (19:55)
[2019-11-11] MEDS: MONTELUKAST 10 MG (SINGULAIR) TAB PO SCH (19:56)
[2019-11-12] VITALS (7 sets, daily range): BP systolic 128–149; BP diastolic 62–69
[2019-11-12] MEDS: RT-ALBUTEROL/IPRATROPIUM 3 ML (DUONEB) VIAL INH SCH ×7 (03:17→22:10)
[2019-11-12 05:19] LABS: BASOPHILS % (AUTO) 0 % (0-10); EOSINOPHILS % (AUTO) 0 % (0-10); HEMATOCRIT 36 % (35-52); HEMOGLOBIN 12.2 G/DL (11.5-16.0); LYMPHOCYTES # (AUTO) 0.7 X 10^3 (1.0-4.0); LYMPHOCYTES % (AUTO) 7 % (12-44); MEAN CORPUSCULAR HEMOGLOBIN 32 PG (25-34); MEAN CORPUSCULAR HGB CONC 34 G/DL (32-36); MEAN CORPUSCULAR VOLUME 93 FL (80-99); MONOCYTES # (AUTO) 0.5 X 10^3 (0.0-1.0); MONOCYTES % (AUTO) 5 % (0-12); NEUTROPHILS # (AUTO) 8.7 X 10^3 (1.8-7.8); NEUTROPHILS % (AUTO) 89 % (42-75); PLATELET COUNT 134 10^3/uL (130-400); WHITE BLOOD COUNT 9.8 10^3/uL (4.3-11.0)
[2019-11-12 05:27] LABS: ALBUMIN 2.8 GM/DL (3.2-4.5)
[2019-11-12 05:28] LABS: POTASSIUM 3.8 MMOL/L (3.6-5.0)
[2019-11-12 05:29] LABS: CALCIUM 8.4 MG/DL (8.5-10.1)
[2019-11-12 05:30] LABS: TOTAL PROTEIN 4.8 GM/DL (6.4-8.2)
[2019-11-12 05:32] LABS: BILIRUBIN,TOTAL 0.5 MG/DL (0.1-1.0)
[2019-11-12 05:34] LABS: CREATININE SERUM 2.53 MG/DL (0.60-1.30)
[2019-11-12] MEDS: predniSONE 20 MG TAB PO SCH (05:48)
[2019-11-12] MEDS: LACTATED RINGERS 1,000 ML IV SCH (05:49)
[2019-11-12] MEDS: ADVAIR HFA 115/21 MCG INHALER 8 GM IH SCH (06:54)
[2019-11-12] MEDS: TOLTERODINE LA 4 MG (DETROL) CAP PO SCH (09:04)
[2019-11-12] MEDS: DULoxetine 30 MG (CYMBALTA) CAP PO SCH (09:04)
[2019-11-12] MEDS: PANTOPRAZOLE 40 MG (PROTONIX) TAB PO SCH (09:04)
[2019-11-12] MEDS: CARVEDILOL 12.5 MG (COREG) TABLET PO SCH ×2 (09:04→20:01)
[2019-11-12] MEDS: ALLOPURINOL 100 MG (ZYLOPRIM) TAB PO SCH (09:04)
[2019-11-12] MEDS: CLOPIDOGREL 75 MG (PLAVIX) TABLET PO SCH (09:04)
[2019-11-12] MEDS: ENALAPRIL 2.5 MG (VASOTEC) TAB PO SCH (09:04)
--- NOTE | 2019-11-12 11:33 | Progress Note - Hospitalist ---
Subjective HPI/CC On Admission Date Seen by Provider: Nov 12, 2019 Time Seen by Provider: 11:30 this is a 74-year-old white female who resides at [facility]. She was brought to the emergency room with increased confusion. Chest x-ray was normal but she was found to be dehydrated with acute kidney injury. In addition she had evid ence of urinary tract infection. UA from the showed Escherichia coli sensitive to Rocephin and Cipro. She had been placed on Cipro without improvement. At the time of my interview this morning she does not know where she is but is awake and otherwise alert. Her son is present and fills in the additional history. Subjective/Events-last exam patient is sleeping soundly. Nursing staff notes that she is much more alert and oriented today. She says she feels a lot better. Review of Systems Neurological: Weakness Focused Exam Lactate Level 11/10/19 13:55: Lactic Acid Level 1.11 Objective Exam Vital Signs Vital Signs Date Time Temp Pulse Resp B/P (MAP) Pulse Ox O2 Delivery O2 Flow Rate FiO2 11/12/19 08:00 36.0 78 16 139/66 (90) Room Air 11/12/19 07:22 3.00 11/12/19 07:16 91 11/10/19 17:10 36 Capillary Refill : Less Than 3 Seconds General Appearance: Chronically ill, Obese HEENT: Normal ENT Inspection Neck: Limited Range of Motion, Other (short) Respiratory: Chest Non Tender, Lungs Clear, Normal Breath Sounds, No Accessory Muscle Use, No Respiratory Distress Cardiovascular: Regular Rate, Rhythm, No Gallop, Other (distant) Gastrointestinal: Normal Bowel Sounds, Non Tender, Soft Extremity: No Pedal Edema Results/Procedures Lab Laboratory Tests 11/12/19 05:14 Patient resulted labs reviewed. Imaging: Reviewed Imaging Report Assessment/Plan Assessment and Plan Assess & Plan/Chief Complaint acute kidney injury acute on chronic-improving slowly however BNP is elevating so will Hep-Lock IV fluids Urinary tract infection with Escherichia coli greater than 10 to the fifth-day number 2 Rocephin tolerating well even though cephalosporin allergy is documented Mental status changes most likely secondary to urinary tract infection-improving today CREST; on steroids-uncertain baseline steroid dose History of CHF-with mild diastolic dysfunction currently compensated with dehydration -will hold additional IV fluids and restart diuretics as indicated Chronic pain issues with debilitated state-PT Coronary artery disease-stable COPD coronary artery disease minimal History of chronic venous stasis plan as above Clinical Quality Measures DVT/VTE Risk/Contraindication: Risk Factor Score Per Nursin RFS Level Per Nursing on Admit: 4+=Very High KAIA TABOR MD Nov 12, 2019 11:33
[2019-11-12] MEDS: cefTRIAXone FOR IV USE 1,000 MG in WATER (STERILE) FOR INJECTION 10 ML IV SCH (11:53)
--- NOTE | 2019-11-12 12:12 | Diagnostic Imaging Report ---
Indication: Elevated BNP. Compared: 11/10/2019 Findings: Heart is enlarged but not significantly changed from prior. Bibasilar infiltrates greater left showed no real change, mild prominence of the upper lobe pulmonary vascularity unchanged. No pneumothorax. Impression: Cardiomegaly with vascular congestion and bibasilar infiltrates greater left showed no change from prior. Dictated by: Dictated on workstation # [id number]
[2019-11-12] MEDS: HYDROXYCHLOROQUINE 200 MG (PLAQUENIL) TAB PO SCH ×2 (13:19→17:38)
[2019-11-12] MEDS: ENOXAPARIN 30 MG/0.3 ML (LOVENOX) SYR SC SCH (17:38)
[2019-11-12] MEDS: GABAPENTIN 300 MG (NEURONTIN) CAP PO SCH (20:00)
[2019-11-12] MEDS: MONTELUKAST 10 MG (SINGULAIR) TAB PO SCH (20:01)
[2019-11-12] MEDS: toPIRamate 25 MG (TOPAMAX) TAB PO SCH (20:01)
[2019-11-12] MEDS: SIMvastatin 20 MG (ZOCOR) TAB PO SCH (20:02)
[2019-11-13] MEDS: RT-ALBUTEROL/IPRATROPIUM 3 ML (DUONEB) VIAL INH SCH ×6 (02:24→23:15)
[2019-11-13 03:17] VITALS: BP 142/65
[2019-11-13 05:23] LABS: BASOPHILS % (AUTO) 0 % (0-10); EOSINOPHILS % (AUTO) 0 % (0-10); HEMATOCRIT 36 % (35-52); HEMOGLOBIN 12.2 G/DL (11.5-16.0); LYMPHOCYTES # (AUTO) 0.7 X 10^3 (1.0-4.0); LYMPHOCYTES % (AUTO) 8 % (12-44); MEAN CORPUSCULAR HEMOGLOBIN 32 PG (25-34); MEAN CORPUSCULAR HGB CONC 34 G/DL (32-36); MEAN CORPUSCULAR VOLUME 93 FL (80-99); MEAN PLATELET VOLUME 10.8 FL (7.4-10.4); MONOCYTES # (AUTO) 0.7 X 10^3 (0.0-1.0); MONOCYTES % (AUTO) 8 % (0-12); NEUTROPHILS # (AUTO) 7.5 X 10^3 (1.8-7.8); NEUTROPHILS % (AUTO) 84 % (42-75); PLATELET COUNT 150 10^3/uL (130-400)
[2019-11-13 05:37] LABS: ALBUMIN 2.8 GM/DL (3.2-4.5); POTASSIUM 3.7 MMOL/L (3.6-5.0)
[2019-11-13 05:38] LABS: CALCIUM 8.4 MG/DL (8.5-10.1)
[2019-11-13 05:39] LABS: TOTAL PROTEIN 4.9 GM/DL (6.4-8.2)
[2019-11-13 05:41] LABS: BILIRUBIN,TOTAL 0.4 MG/DL (0.1-1.0)
[2019-11-13 05:43] LABS: CREATININE SERUM 2.18 MG/DL (0.60-1.30)
[2019-11-13] MEDS: predniSONE 20 MG TAB PO SCH (06:12)
[2019-11-13] MEDS: RT-ALBUTEROL/IPRATROPIUM 3 ML (DUONEB) VIAL IH SCH ×2 (06:44→10:02)
[2019-11-13 08:00] VITALS: BP 127/60
[2019-11-13] MEDS: TOLTERODINE LA 4 MG (DETROL) CAP PO SCH (09:06)
[2019-11-13] MEDS: ALLOPURINOL 100 MG (ZYLOPRIM) TAB PO SCH (09:06)
[2019-11-13] MEDS: PANTOPRAZOLE 40 MG (PROTONIX) TAB PO SCH (09:06)
[2019-11-13] MEDS: ENALAPRIL 2.5 MG (VASOTEC) TAB PO SCH (09:06)
[2019-11-13] MEDS: CARVEDILOL 12.5 MG (COREG) TABLET PO SCH ×2 (09:06→20:38)
[2019-11-13] MEDS: CLOPIDOGREL 75 MG (PLAVIX) TABLET PO SCH (09:06)
[2019-11-13] MEDS: DULoxetine 30 MG (CYMBALTA) CAP PO SCH (09:06)
[2019-11-13] MEDS: ADVAIR HFA 115/21 MCG INHALER 8 GM IH SCH (10:02)
[2019-11-13] MEDS ORDERED: GABA300C PO (10:09)
[2019-11-13] MEDS ORDERED: [UNRECOGNIZED DRUG - CODE] TP (10:09)
[2019-11-13] MEDS ORDERED: MENT71OI TP (10:09)
[2019-11-13] MEDS ORDERED: MONT10TA26 PO (10:09)
[2019-11-13] MEDS ORDERED: CHOL200014 PO (10:20)
[2019-11-13] MEDS ORDERED: LACT10SO PO (10:20)
--- NOTE | 2019-11-13 10:57 | Progress Note - Hospitalist ---
GEE ZELAYA MED STUDENT 11/13/19 1057: Subjective HPI/CC On Admission Date Seen by Provider: Nov 13, 2019 Time Seen by Provider: 09:30 this is a 74-year-old white female who resides at [facility]. She was brought to the emergency room with increased confusion. Chest x-ray was normal but she was found to be dehydrated with acute kidney injury. In addition she had evidence of urinary tract infection. UA from the showed Escherichia coli sensitive to Rocephin and Cipro. She had been placed on Cipro without im provement. At the time of my interview this morning she does not know where she is but is awake and otherwise alert. Her son is present and fills in the additional history. Subjective/Events-last exam Pt is awake, NAD, laying in bed Alert, disoriented to person/place/time Complains of chronic low back pain BNP 608.9 to 438.3 Cr 2.53 to 2.18 Review of Systems General: No Chills, No Night Sweats, No Fatigue, No Malaise, No Appetite HEENT: No Head Aches, No Visual Changes, No Eye Pain, No Ear Pain, No Dysphasia, No Sinus Congestion, No Post Nasal Drip, No Sore Throat Pulmonary: No Dyspnea, No Cough, No Pleuritic Chest Pain, No Other Cardiovascular: No: Chest Pain, Palpitations, Orthopnea, Paroxysmal Noc. Dyspnea, Edema, Lt Headedness Gastrointestinal: No: Nausea, Vomiting, Abdominal Pain, Diarrhea, Constipation, Melena, Hematochezia Genitourinary: No Dysuria, No Frequency, No Incontinence, No Hematuria, No Retention, No Other Musculoskeletal: back pain Neurological: Weakness Focused Exam Lactate Level 11/10/19 13:55: Lactic Acid Level 1.11 Time of Focused Exam: 09:30 Respiratory: Chest Non Tender, Lungs Clear, Normal Breath Sounds, No Accessory Muscle Use, No Respiratory Distress Cardiovascular: Regular Rate, Rhythm, No Gallop, No JVD, No Murmur, Normal Peripheral Pulses, Other (Moderate edema to BLE) Capillary Refill: Less Than 3 Seconds Peripheral Pulses: 2+ Radial Pulses (R), 2+ Radial Pulses (L) Skin: normal color, warm/dry, other (Areas of ecchymosis to BUE and erythema to BLE) Objective Exam Vital Signs Vital Signs Date Time Temp Pulse Resp B/P (MAP) Pulse Ox O2 Delivery O2 Flow Rate FiO2 11/13/19 10:03 94 Nasal Cannula 3.00 11/13/19 08:00 35.9 54 16 127/60 (82) 11/10/19 17:10 36 Capillary Refill : Less Than 3 Seconds General Appearance: No Apparent Distress, Chronically ill, Obese HEENT: PERRL/EOMI, Normal ENT Inspection Neck: Full Range of Motion, Normal Inspection Respiratory: Chest Non Tender, Lungs Clear, Normal Breath Sounds, No Accessory Muscle Use, No Respiratory Distress Cardiovascular: Regular Rate, Rhythm, No Gallop, No JVD, No Murmur, Normal Peripheral Pulses Gastrointestinal: Normal Bowel Sounds, Non Tender, Soft Extremity: Normal Capillary Refill, Normal Inspection, Normal Range of Motion Neurologic/Psychiatric: Alert, No Motor/Sensory Deficits, Disoriented (to person/place/time) Skin: Warm/Dry (areas of ecchymosis to BUE and erythema to BLE) Results/Procedures Lab Laboratory Tests 11/13/19 05:09 Patient resulted labs reviewed. Imaging: Reviewed Imaging Report Assessment/Plan Assessment and Plan Assess & Plan/Chief Complaint Assessment: AMS Acute on chronic kidney injury UTI COPD Lymphedema HTN CHF T2DM Obesity Obesity-hypoventilation syndrome Plan: Monitor mental status Monitor fluid/electrolytes Monitor VS Continue Rocephin Diagnosis/Problems Diagnosis/Problems (1) Non-insulin dependent type 2 diabetes mellitus (2) Renal insufficiency Status: Chronic (3) Altered mental status Status: Resolved Resolution Date/Time: 02/21/18 @ 13:32 (4) Lymphedema Status: Chronic (5) Obesity hypoventilation syndrome Status: Chronic (6) CHF (congestive heart failure) Status: Chronic (7) LEIGHANN (acute kidney injury) Status: Resolved Resolution Date/Time: 02/20/18 @ 18:58 Clinical Quality Measures DVT/VTE Risk/Contraindication: Risk Factor Score Per Nursin RFS Level Per Nursing on Admit: 4+=Very High CLARE MADERA DO 11/13/192102: Subjective Subjective/Events-last exam Pt has had a significant decline since last seen Very confused Had some significant weight loss noted No significant pain reported Creatinine down to 2.18 PT and OT will be ordered Overall severely declined Objective Exam General Appearance: No Apparent Distress, Chronically ill, Obese Respiratory: Normal Breath Sounds Cardiovascular: Regular Rate, Rhythm Neurologic/Psychiatric: Alert, Disoriented (to person/place/time) Assessment/Plan Assessment and Plan Assess & Plan/Chief Complaint Supportive care Monitor closely Supervisory-Addendum Brief Verification & Attestation Participated in pt care: history, MDM, physical Personally performed: exam, history, MDM, supervision of care Care discussed with: Medical Student Procedures: n/a Results interpretation: Verified all documentation Verification and Attestation of Medical Student E/M Service A medical student performed and documented this service in my presence. I reviewed and verified all information documented by the medical student and made modifications to such information, when appropriate. I personally performed the physical exam and medical decision making. Clare Madera, Nov 13, 2019,21:03 GEE ZELAYA MED STUDENT Nov 13, 2019 10:57 CLARE MADERA DO Nov 13, 2019 21:03
[2019-11-13] MEDS: cefTRIAXone FOR IV USE 1,000 MG in WATER (STERILE) FOR INJECTION 10 ML IV SCH (11:59)
[2019-11-13] MEDS: HYDROXYCHLOROQUINE 200 MG (PLAQUENIL) TAB PO SCH ×2 (11:59→18:21)
[2019-11-13 12:00] VITALS: BP 184/74
--- NOTE | 2019-11-13 12:17 | Physical Therapy Evaluation ---
PT Evaluation-General Medical Diagnosis Admission Date Nov 10, 2019 at 15:52 Medical Diagnosis: COPD/LEIGHANN Onset Date: Nov 10, 2019 Therapy Diagnosis Therapy Diagnosis: debility/weakness Height/Weight Height (Feet): 5 Height (Inches): 4.00 Weight (Pounds): 270 Weight (Ounces): 9.0 Precautions Precautions/Isolations: Fall Prevention, Standard Precautions Referral Physician: Francisco Reason for Referral: Evaluation/Treatment Medical History Pertinent Medical History: Arthritis, CAD, COPD, DM, GERD, HTN, Neuropathy, Rheumatoid Arthritis Current History EMS secondary to AMS, lethargy, slurred speech, edema and hypotension Reviewed History: Yes Social History Home: Assisted Living Prior Prior Level of Function SCALE: Activities may be completed with or without assistive devices. 0-Wssbmpaode-mwptubd completes the activity by him/herself with no assistance from a helper. 5-Set-up or Clean-up Assistance-helper sets up or cleans up; patient completes activity. [place] assists only prior to or following the activity. 4-Supervision or Touching Assistance-helper provides verbal cues and/or touching/steadying and/or contact guard assistance as patient completes activity. Assistance may be provided throughout the activity or intermittently. 3-Partial/Moderate Assistance-helper does LESS THAN HALF the effort. [place] lifts, holds or supports trunk or limbs, but provides less than half the effort. 2-Substantial/Maximal Assistance-helper does MORE THAN HALF the effort. [place] lifts or holds trunk or limbs and provides more than half the effort. 2-Jjsttddcw-ilwyky does ALL the effort. Patient does none of the effort to complete the activity. Or, the assistance of 2 or more helpers is required for the patient to complete the activity. If activity was not attempted, code reason: 7-Patient Refused. 9-Not Applicable-not attempted and the patient did not perform the activity before the current illness, exacerbation or injury. 10-Not Attempted due to Environmental Limitations-(lack of equipment, weather restraints, etc.). 88-Not Attempted due to Medical Conditions or Safety Concerns. Bed Mobility: 5 Transfers (B,C,W/C): 5 Gait: 5 Stairs: 9 Indoor Mobility (Ambulation): Needed Some Help Prior Devices Use: Walker PT Evaluation-Current Subjective Patient remains confused, however, agrees to PT. Objective Patient Orientation: Confused Attachments: Oxygen, Barney Catheter ROM/Strength ROM Lower Extremities bilateral LE WFL Strength Lower Extremities 4-/5 grossly bilateral LE Integumentary/Posture Integumentary refer to nursing notes Bladder Incontinence: Barney Cath Posture slight trunk flexed posture Neuromuscular (Tone, Coordination, Reflexes) grossly intact Sensory Vision: Wears Glasses Hearing: Functional Transfers Roll Left to Right (QC): 5 Lying to Sitting/Side of Bed(Q: 5 Sit to Stand (QC): 4 Chair/Shi-ig-Cskrp Xfer(QC): 4 Gait Does the Patient Walk?: Yes Mode of Locomotion: Walk Anticipated Mode of Locomotion: Walk Walk 10 feet (QC): 4 Walk 50 ft with 2 Turns(QC): 88 Walk 150 ft (QC): 88 Distance: 20' Gait Assistive Device: FWW Comments/Gait Description slow, shuffle gait sequence Balance Sitting Static: Normal Sitting Dynamic: Normal Standing Static: Fair Standing Dynamic: Fair Assessment/Needs 74 y.o. female, will benefit from short term skilled PT to address functional strength and mobility to improve current LOF. From a PT standpoint, patient would benefit from home health therapy to address functional living. Rehab Potential: Fair PT Still Operator Brandy Goals Still Operator Brandy Goals PT Still Operator Brandy Goals Time Frame: Nov 25, 2019 Roll Left & Right (QC): 5 Sit to Lying (QC): 5 Lying-Sitting on Side/Bed(QC): 5 Sit to Stand (QC): 5 Chair/Cmm-bt-Qspsa Xfer(QC): 5 Toilet Transfer (QC): 5 Does the Patient Walk: Yes Walk 10 feet (QC): 5 Walk 50ft with 2 Turns (QC): 5 Walk 150 ft (QC): 5 PT Plan Problem List Problem List: Activity Tolerance, Functional Strength, Safety, Balance, Gait, Transfer, Bed Mobility Treatment/Plan Treatment Plan: Continue Plan of Care Treatment Plan: Bed Mobility, Education, Functional Activity [place], Functional Strength, Gait, Safety, Therapeutic Exercise, Transfers Treatment Duration: Nov 25, 2019 Frequency: 6 times per week Estimated Hrs Per Day: .25 hour per day Patient and/or Family Agrees t: Yes Time/GCodes Time In: 1040 Time Out: 1054 Total Billed Treatment Time: 14 Total Billed Treatment 1 visit EVMod 14 min GARO NICK PT Nov 13, 2019 12:17
--- NOTE | 2019-11-13 12:39 | NUR ---
I SPOKE WITH THE PATIENT'S CARE HOME AND WENT THROUGH THE MED LIST PROVIDED IN FILE TO COMPLETE THIS MED REC. OTC: ZYRTEC VITAMIN C FERROUS SULFATE CRANBERRY TAB VITAMIN D FLONASE LACTULOSE ROBITUSSIN DM LOCOID CREAM CALMOSEPTINE
--- NOTE | 2019-11-13 14:38 | NUR ---
RD ASSESSMENT PMHx: COPD; pneumonia; hypercholesterolemia; HTN; renal failure; GERD; RA; CA(breast); CHF PT INTERACTION: Pt was awake and pleasant during nutrition assessment. Pt states current appetite is pretty good. Note avg PO intake 50% x3d, per chart review. Pt states following a regular diet at home, and has some issues with chewing food, d/t "sore mouth." Pt states no recent issues with nausea, vomiting, constipation, or diarrhea, and that she is unsure when her last BM was. Note no BM has been recorded, and pt not currently on bowel regimen per chart review. Pt states no recent wt changes. Note recent 9# wt loss x9mon, per chart review. ABNORMAL NUTRITION-RELATED LAB VALUES LOW: Ca 8.4; Pro 4.9; alb 2.8 HIGH: BNU 36; cr 2.18; glu 118 Est. kcal needs: 1675 kcal | 15 kcal/kg Est. Pro needs: 89 g Pro | 0.8 g Pro/kg PES STATEMENT: Inadequate oral intake (NI-2.1) related to loss of appetite | chewing issues | sore mouth as evidenced by pt interview | avg PO intake 50% x3d INTERVENTION: Continue with current diet order of 2000mg Na diet. Pt may benefit from nutrition supplementation if PO intake declines. Will continue to follow and reassess as pt needs, intake, and status change. Serge Lewis, MS, RD, LD
[2019-11-13 15:49] VITALS: BP 184/74
[2019-11-13 16:00] VITALS: BP 149/69
[2019-11-13] MEDS ORDERED: RT-ALBUTEROL/IPRATROPIUM 3 ML (DUONEB) VIAL INH PRN (16:00)
[2019-11-13] MEDS: ENOXAPARIN 30 MG/0.3 ML (LOVENOX) SYR SC SCH (18:21)
[2019-11-13 20:00] VITALS: BP 147/68
[2019-11-13] MEDS: SIMvastatin 20 MG (ZOCOR) TAB PO SCH (20:37)
[2019-11-13] MEDS: GABAPENTIN 300 MG (NEURONTIN) CAP PO SCH (20:37)
[2019-11-13] MEDS: toPIRamate 25 MG (TOPAMAX) TAB PO SCH (20:37)
[2019-11-13] MEDS: MONTELUKAST 10 MG (SINGULAIR) TAB PO SCH (20:38)
[2019-11-14] VITALS: BP 118/59
[2019-11-14] MEDS: RT-ALBUTEROL/IPRATROPIUM 3 ML (DUONEB) VIAL INH SCH ×6 (03:15→22:34)
[2019-11-14 04:59] LABS: BASOPHILS % (AUTO) 0 % (0-10); EOSINOPHILS % (AUTO) 0 % (0-10); HEMATOCRIT 37 % (35-52); HEMOGLOBIN 12.6 G/DL (11.5-16.0); LYMPHOCYTES # (AUTO) 0.9 X 10^3 (1.0-4.0); LYMPHOCYTES % (AUTO) 11 % (12-44); MEAN CORPUSCULAR HEMOGLOBIN 31 PG (25-34); MEAN CORPUSCULAR HGB CONC 34 G/DL (32-36); MEAN CORPUSCULAR VOLUME 93 FL (80-99); MEAN PLATELET VOLUME 10.9 FL (7.4-10.4); MONOCYTES # (AUTO) 0.8 X 10^3 (0.0-1.0); MONOCYTES % (AUTO) 10 % (0-12); NEUTROPHILS # (AUTO) 6.3 X 10^3 (1.8-7.8); NEUTROPHILS % (AUTO) 79 % (42-75); PLATELET COUNT 154 10^3/uL (130-400)
[2019-11-14 05:09] LABS: ALBUMIN 2.9 GM/DL (3.2-4.5); POTASSIUM 3.6 MMOL/L (3.6-5.0)
[2019-11-14 05:10] LABS: CALCIUM 8.5 MG/DL (8.5-10.1)
[2019-11-14 05:11] LABS: TOTAL PROTEIN 4.8 GM/DL (6.4-8.2)
[2019-11-14 05:13] LABS: BILIRUBIN,TOTAL 0.4 MG/DL (0.1-1.0)
[2019-11-14 05:15] LABS: CREATININE SERUM 1.79 MG/DL (0.60-1.30)
[2019-11-14] MEDS: predniSONE 20 MG TAB PO SCH (06:02)
[2019-11-14] MEDS: ADVAIR HFA 115/21 MCG INHALER 8 GM IH SCH (07:20)
[2019-11-14 08:00] VITALS: BP 140/66
[2019-11-14] MEDS: ENALAPRIL 2.5 MG (VASOTEC) TAB PO SCH (08:41)
[2019-11-14] MEDS: CLOPIDOGREL 75 MG (PLAVIX) TABLET PO SCH (08:41)
[2019-11-14] MEDS: ALLOPURINOL 100 MG (ZYLOPRIM) TAB PO SCH (08:41)
[2019-11-14] MEDS: TOLTERODINE LA 4 MG (DETROL) CAP PO SCH (08:41)
[2019-11-14] MEDS: PANTOPRAZOLE 40 MG (PROTONIX) TAB PO SCH (08:41)
[2019-11-14] MEDS: DULoxetine 30 MG (CYMBALTA) CAP PO SCH (08:41)
[2019-11-14] MEDS: CARVEDILOL 12.5 MG (COREG) TABLET PO SCH ×2 (08:41→21:52)
--- NOTE | 2019-11-14 11:50 | Progress Note - Hospitalist ---
GEE ZELAYA MED STUDENT 11/14/19 1150: Subjective HPI/CC On Admission Date Seen by Provider: Nov 14, 2019 Time Seen by Provider: 09:30 this is a 74-year-old white female who resides at [facility]. She was brought to the emergency room with increased confusion. Chest x-ray was normal but she was found to be dehydrated with acute kidney injury. In addition she had evidence of urinary tract infection. UA from the 12th showed Escherichia coli sensitive to Rocephin and Cipro. She had been placed on Cipro without im provement. At the time of my interview this morning she does not know where she is but is awake and otherwise alert. Her son is present and fills in the additional history. Subjective/Events-last exam Pt is awake, sitting up in chair, NAD Improved mental status; still doesn't remember events leading up to hospital stay but is less confused Continues to have chronic low back pain Denies CP/SOB Kidney function improving; Cr 2.18 to 1.79 Review of Systems General: No Chills; Fatigue HEENT: No Head Aches Pulmonary: No Dyspnea, No Cough Cardiovascular: Edema; No: Chest Pain, Palpitations Gastrointestinal: No: Nausea, Vomiting, Abdominal Pain, Diarrhea, Constipation Genitourinary: No Dysuria, No Frequency Musculoskeletal: back pain Neurological: Weakness, Confusion (improved since yesterday); No: Numbness Focused Exam Time of Focused Exam: 09:30 Respiratory: Chest Non Tender, Lungs Clear, Normal Breath Sounds, No Accessory Muscle Use, No Respiratory Distress Cardiovascular: Regular Rate, Rhythm, No Gallop, No JVD, No Murmur, Normal Peripheral Pulses Capillary Refill: Less Than 3 Seconds Skin: warm/dry, other (BLE with moderate edema and erythema ) Objective Exam Vital Signs Vital Signs Date Time Temp Pulse Resp B/P (MAP) Pulse Ox O2 Delivery O2 Flow Rate FiO2 11/14/19 10:17 92 Nasal Cannula 1.50 11/14/19 08:00 36.2 53 18 140/66 (90) 11/13/19 15:49 30 Capillary Refill : Less Than 3 Seconds General Appearance: No Apparent Distress, Chronically ill, Obese HEENT: Normal ENT Inspection Neck: Normal Inspection Respiratory: Chest Non Tender, Lungs Clear, Normal Breath Sounds, No Accessory Muscle Use, No Respiratory Distress Cardiovascular: Regular Rate, Rhythm, No Gallop, No JVD, No Murmur, Other (BLE moderately edematous) Gastrointestinal: Normal Bowel Sounds, Non Tender, Soft Back: Normal Inspection Extremity: Normal Capillary Refill, Normal Inspection, Normal Range of Motion, Non Tender Neurologic/Psychiatric: Alert, Oriented x3, Normal Mood/Affect, Other (Orie ntation improved since yesterday; A&Ox3 today) Skin: Warm/Dry, Erythema (to BLE), [place] Results/Procedures Lab Laboratory Tests 11/14/19 04:40 Patient resulted labs reviewed. Imaging: Reviewed Imaging Report Assessment/Plan Assessment and Plan Assess & Plan/Chief Complaint Assessment: AMS Acute on chronic kidney injury UTI COPD Lymphedema HTN CHF T2DM Obesity Obesity-hypoventilation syndrome Plan: Monitor mental status Monitor fluid/electrolytes/VS Encourage PO intake and monitor nutritional status Continue Rocephin PT/OT assessment Assess for transfer to IRF vs Assisted living vs snf Diagnosis/Problems Diagnosis/Problems (1) Non-insulin dependent type 2 diabetes mellitus (2) Renal insufficiency Status: Chronic (3) Altered mental status Status: Resolved Resolution Date/Time: 02/21/18 @ 13:32 (4) Lymphedema Status: Chronic (5) Obesity hypoventilation syndrome Status: Chronic (6) CHF (congestive heart failure) Status: Chronic (7) LEIGHANN (acute kidney injury) Status: Resolved Resolution Date/Time: 02/20/18 @ 18:58 Clinical Quality Measures DVT/VTE Risk/Contraindication: Risk Factor Score Per Nursin RFS Level Per Nursing on Admit: 4+=Very High CLARE MADERA DO 11/14/19 1224: Subjective HPI/CC On Admission Date Seen by Provider: Nov 14, 2019 Time Seen by Provider: 09:00 Subjective/Events-last exam Creatinine improved at 1.79 Improved confusion Will initiate PT and OT Unsure disposition, whether she can go back to assisted-living or not Review of Systems General: Fatigue, Malaise Neurological: Weakness Objective Exam General Appearance: No Apparent Distress, WD/WN, Chronically ill, Obese HEENT: PERRL/EOMI, Normal ENT Inspection, Pharynx Normal, Moist Mucous Membranes Neck: Full Range of Motion, Normal Inspection, Non Tender, Supple, Carotid Bruit Respiratory: Chest Non Tender, Lungs Clear, Normal Breath Sounds, No Accessory Muscle Use, No Respiratory Distress Cardiovascular: Regular Rate, Rhythm, No Edema, No Gallop, No JVD, No Murmur, Normal Peripheral Pulses Gastrointestinal: Normal Bowel Sounds, No Organomegaly, No Pulsatile Mass, Non Tender, Soft Back: Normal Inspection, No CVA Tenderness, No Vertebral Tenderness Extremity: Normal Capillary Refill, Normal Inspection, Normal Range of Motion, Non Tender, No Calf Tenderness, No Pedal Edema Neurologic/Psychiatric: Alert, Oriented x3, No Motor/Sensory Deficits, Normal Mood/Affect, Disoriented Skin: Normal Color, Warm/Dry Lymphatic: No Adenopathy Assessment/Plan Assessment and Plan Assess & Plan/Chief Complaint 11/14/19: Monitor creatinine Monitor confusion PT/OT Disposition back to assisted living vs. [facility] Supervisory-Addendum Brief Verification & Attestation Participated in pt care: history, MDM, physical Personally performed: exam, history, MDM, supervision of care Care discussed with: Medical Student Procedures: n/a Results interpretation: Verified all documentation Verification and Attestation of Medical Student E/M Service A medical student performed and documented this service in my presence. I reviewed and verified all information documented by the medical student and made modifications to such information, when appropriate. I personally performed the physical exam and medical decision making. Clare Madera, Nov 14, 2019,20:35 GEE ZELAYA MED STUDENT Nov 14, 2019 11:50 CLARE MADERA DO Nov 14, 2019 12:24
--- NOTE | 2019-11-14 12:07 | Physical Therapy Daily Note ---
PT Daily Note-Current Subjective Patient agrees to PT. Mental Status Patient Orientation: Confused Attachments: Oxygen, Barney Catheter, IV Transfers SCALE: Activities may be completed with or without assistive devices. 9-Rnhfowjvqr-ryylzut completes the activity by him/herself with no assistance from a helper. 5-Set-up or Clean-up Assistance-helper sets up or cleans up; patient completes activity. [place] assists only prior to or following the activity. 4-Supervision or Touching Assistance-helper provides verbal cues and/or touching/steadying and/or contact guard assistance as patient completes activity. Assistance may be provided throughout the activity or intermittently. 3-Partial/Moderate Assistance-helper does LESS THAN HALF the effort. [place] lif ts, holds or supports trunk or limbs, but provides less than half the effort. 2-Substantial/Maximal Assistance-helper does MORE THAN HALF the effort. [place] lifts or holds trunk or limbs and provides more than half the effort. 1-Elxzvnjza-ydihbz does ALL the effort. Patient does none of the effort to complete the activity. Or, the assistance of 2 or more helpers is required for the patient to complete the activity. If activity was not attempted, code reason: 7-Patient Refused. 9-Not Applicable-not attempted and the patient did not perform the activity before the current illness, exacerbation or injury. 10-Not Attempted due to Environmental Limitations-(lack of equipment, weather restraints, etc.). 88-Not Attempted due to Medical Conditions or Safety Concerns. Lying to Sitting/Side of Bed(Q: 5 Sit to Stand (QC): 4 Chair/Lri-ho-Uotng Xfer(QC): 4 Gait Training Does the Patient Walk?: Yes Distance: 15' x 2 Walk 10 feet (QC): 3 Gait Assistive Device: FWW slow, trunk flexed posture Exercises Standing: Marching Standing Reps: 15 (2 sets) Assessment Patient reports she does not ambulate at [place] and utilizes w/c. This PT is unsure of accuracy of this statement. Increase activity as tolerated. PT Usp Goals Model Maker Plaster Goals PT Usp Goals Time Frame: Nov 25, 2019 Roll Left & Right (QC): 5 Sit to Lying (QC): 5 Lying-Sitting on Side/Bed(QC): 5 Sit to Stand (QC): 5 Chair/Pzw-bu-Lityz Xfer(QC): 5 Toilet Transfer (QC): 5 Does the Patient Walk: Yes Walk 10 feet (QC): 5 Walk 50ft with 2 Turns (QC): 5 Walk 150 ft (QC): 5 PT Plan Treatment/Plan Treatment Plan: Continue Plan of Care Treatment Plan: Bed Mobility, Education, Functional Activity [place], Functional Strength, Gait, Safety, Therapeutic Exercise, Transfers Treatment Duration: Nov 25, 2019 Frequency: 6 times per week Estimated Hrs Per Day: .25 hour per day Patient and/or Family Agrees t: Yes Time/GCodes Time In: 1035 Time Out: 1048 Total Billed Treatment Time: 13 Total Billed Treatment 1 visit FA 13 min GARO NICK PT Nov 14, 2019 12:07
[2019-11-14] MEDS: HYDROXYCHLOROQUINE 200 MG (PLAQUENIL) TAB PO SCH ×2 (12:11→17:03)
--- NOTE | 2019-11-14 13:43 | Occupational Therapy Eval ---
OT Evaluation-General/PLF Medical Diagnosis Admission Date Nov 10, 2019 at 15:52 Medical Diagnosis: COPD/LEIGHANN Onset Date: Nov 10, 2019 Therapy Diagnosis Therapy Diagnosis: decreased ADL status Height/Weight Height (Feet): 5 Height (Inches): 4.00 Weight (Pounds): 270 Weight (Ounces): 9.0 Precautions Precautions/Isolations: Fall Prevention, Standard Precautions Referral Physician: Karma Referral Reason: Evaluation/Treatment Medical History Pertinent Medical History: Arthritis, CAD, COPD, DM, GERD, HTN, Neuropathy, Rheumatoid Arthritis Additional Medical History COPD, pneumonia, sleep apnea, chronic edema, HTN, neuropathy, renal failure, GERD, gallbladder disease, DDD, RA, arthritis, chronic back pain, anxiety/depression, appendectomy, hysterectomy, breast cancer with surgical intervention Current History ED due to increased confusion Social History Home: Assisted Living ADL-Prior Level of Function SCALE: Activities may be completed with or without assistive devices. 1-Uhtnhongto-qbugwvp completes the activity by him/herself with no assistance from a helper. 5-Set-up or Clean-up Assistance-helper sets up or cleans up; patient completes activity. [place] assists only prior to or following the activity. 4-Supervision or Touching Assistance-helper provides verbal cues and/or touching/steadying and/or contact guard assistance as patient completes activity. Assistance may be provided throughout the activity or intermittently. 3-Partial/Moderate Assistance-helper does LESS THAN HALF the effort. [place] lifts, holds or supports trunk or limbs, but provides less than half the effort. 2-Substantial/Maximal Assistance-helper does MORE THAN HALF the effort. [place] lifts or holds trunk or limbs and provides more than half the effort. 8-Sbutioqzk-saopss does ALL the effort. Patient does none of the effort to complete the activity. Or, the assistance of 2 or more helpers is required for the patient to complete the activity. If activity was not attempted, code reason: 7-Patient Refused. 9-Not Applicable-not attempted and the patient did not perform the activity before the current illness, exacerbation or injury. 10-Not Attempted due to Environmental Limitations-(lack of equipment, weather restraints, etc.). 88-Not Attempted due to Medical Conditions or Safety Concerns. ADL PLOF Comments Pt reports living at [facility], she has assistance with showering but is able to dress herself. She also has meals provided to her. Pt indicates she has used a w/c for functional mobility for the last couple of years. Self Care: Needed Some Help Functional Cognition: Independent DME/Equipment: Bath Chair, Shower OT Current Status Subjective Pt seated in recliner, lunch tray just arrived. Pt agreeable to OT evaluation at this time. Mental Status/Objective Patient Orientation: Person, Confused Current Glasses/Contacts: Yes Hearing Aids: No Dentures/Partials: No Hand Dominance: Right Upper Extremity ROM RUE shoulder flexion to approx 90 degreees (pt indicates she has a biceps tear), LUE shoulder flexion to approx 150 degrees. Upper Extremity Coordination WFL Upper Extremity Sensation pt denies tingling/numbness Upper Extremity Strength grossly 3+/5 ADL-Treatment Eating (QC): 5 (assistance cutting food and opening containers, pt able to bring food and drink to mouth and use utensils) Other Treatments Pt seated in recliner, agreeable to OT evaluation/tx. OT educated pt on purpose and benefits of OT, she verbalized understanding. Pt then provided information about PLOF and home set up, and participates in UE screen. Pt eating lunch, requires assistance opening containers and cutting her food, pt then able to eat without difficulty. Pt declined further ADLs at this time due to eating lunch. Pt feels like she is stronger now than she was prior to coming to the hospital and does not see any difficulties with returning home. OT informed pt on OT POC while she is in the hospital to increase independence and safety with ADLS as well as increasing functional strength and endurance, pt verbalized understanding. Post OT Tx, pt seated in recliner eating, call light in reach and all needs met. Education OT Patient Education: Correct positioning, Modified ADL techniques, Progress toward Goal/Update tx plan, Purpose of tx/functional activities Teaching Recipient: Patient Teaching Methods: Discussion Response to Teaching: Verbalize Understanding OT High [employer] Science Teacher Goals Residential Goals Time Frame: Nov 24, 2019 Eating (QC): 6 Oral Hygiene (QC): 6 Toileting Hygiene (QC): 6 Shower/Bathe Self (QC): 3 Upper Body Dressing (QC): 5 Lower Body Dressing (QC): 5 On/Off Footwear (QC): 5 1=Demonstrate adherence to instructed precautions during ADL tasks. 2=Patient will verbalize/demonstrate understanding of assistive devices/modifications for ADL. 3=Patient will improve strength/tolerance for activity to enable patient to perform ADL's. OT Education/Plan Problem List/Assessment Assessment: Decreased Activ Tolerance, Decreased UE Strength, Impaired Funct Balance, Impaired I ADL's, Impaired Self-Care Skills Discharge Recommendations Plan/Recommendations: Continue POC Treatment Plan/Plan of Care Patient would benefit from OT for education, treatment and training to promote independence in ADL's, mobility, safety and/or upper extremity function for ADL's. Plan of Care: ADL Retraining, Functional Mobility, UE Funct Exercise/Act Treatment Duration: Nov 24, 2019 Frequency: 5 times per week Rehab Potential: Fair Time/GCodes Start Time: 13:10 Stop Time: 13:28 Total Time Billed (hr/min): 18 Billed Treatment Time 1, SHADI CASTELLANSO OT Nov 14, 2019 13:42
--- NOTE | 2019-11-14 14:15 | NUR ---
CM/SS visited with patient for discharge planning. Plan: Patient will return to [facility] at time of discharge. The patient reports that she has been living there for the past 5 years. She has enjoyed living there. CM/SS asked the patient if she wanted this sw to call her son for an update. She stated no, and that he already knows what is going on. CM/SS will continue to follow.
[2019-11-14 15:50] VITALS: BP 176/77
--- NOTE | 2019-11-14 16:30 | NUR ---
introductions given to patient, patient agrees to have bottom sore looked at. Patient explains, "my bottom has been sore for quite some time. I started putting that white cream on it. It really cools it and helps it feel better." Allevyn with drainage noted in place over wound. Allevyn removed, area appears reddened, with some peeling skin on edges. Wounds to each gluteal cheek. area cleansed, barrier cream applied, new allevyn placed. Waffle seat cushion added to chair with cover, explained to patient to take with her upon discharge and use at home. Patient already using air mattress bed for sleep. Enc. patient to consume at least protein with meals, Edu. given. voices understanding.
[2019-11-14 16:53] VITALS: BP 164/82
[2019-11-14] MEDS: ENOXAPARIN 30 MG/0.3 ML (LOVENOX) SYR SC SCH (17:03)
[2019-11-14] MEDS ORDERED: RT-ALBUTEROL/IPRATROPIUM 3 ML (DUONEB) VIAL ONE (18:35)
[2019-11-14] MEDS: SIMvastatin 20 MG (ZOCOR) TAB PO SCH (21:52)
[2019-11-14] MEDS: GABAPENTIN 300 MG (NEURONTIN) CAP PO SCH (21:52)
[2019-11-14] MEDS: toPIRamate 25 MG (TOPAMAX) TAB PO SCH (21:52)
[2019-11-14] MEDS: MONTELUKAST 10 MG (SINGULAIR) TAB PO SCH (21:52)
[2019-11-15 00:43] VITALS: BP 136/63
[2019-11-15] MEDS: RT-ALBUTEROL/IPRATROPIUM 3 ML (DUONEB) VIAL INH SCH ×3 (02:32→10:34)
[2019-11-15 04:44] LABS: BASOPHILS % (AUTO) 0 % (0-10); EOSINOPHILS % (AUTO) 0 % (0-10); HEMATOCRIT 38 % (35-52); HEMOGLOBIN 12.8 g/dL (11.5-16.0); LYMPHOCYTES # (AUTO) 1.2 10^3/uL (1.0-4.0); LYMPHOCYTES % (AUTO) 14 % (12-44); MEAN CORPUSCULAR HEMOGLOBIN 32 pg (25-34); MEAN CORPUSCULAR HGB CONC 34 g/dL (32-36); MEAN CORPUSCULAR VOLUME 93 fL (80-99); MEAN PLATELET VOLUME 10.8 fL (9.0-12.2); MONOCYTES # (AUTO) 0.8 10^3/uL (0.0-1.0); MONOCYTES % (AUTO) 10 % (0-12); NEUTROPHILS # (AUTO) 6.4 10^3/uL (1.8-7.8); NEUTROPHILS % (AUTO) 76 % (42-75); PLATELET COUNT 144 10^3/uL (130-400); WHITE BLOOD COUNT 8.5 10^3/uL (4.3-11.0)
[2019-11-15 05:06] LABS: ALBUMIN 2.8 GM/DL (3.2-4.5); BILIRUBIN,TOTAL 0.6 MG/DL (0.1-1.0); CALCIUM 8.6 MG/DL (8.5-10.1); CREATININE SERUM 1.56 MG/DL (0.60-1.30); POTASSIUM 3.8 MMOL/L (3.6-5.0); TOTAL PROTEIN 4.6 GM/DL (6.4-8.2)
[2019-11-15] MEDS: predniSONE 20 MG TAB PO SCH (05:52)
[2019-11-15] MEDS: ADVAIR HFA 115/21 MCG INHALER 8 GM IH SCH (06:59)
[2019-11-15 08:00] VITALS: BP 159/77
[2019-11-15] MEDS: PANTOPRAZOLE 40 MG (PROTONIX) TAB PO SCH (08:13)
[2019-11-15] MEDS: TOLTERODINE LA 4 MG (DETROL) CAP PO SCH (08:13)
[2019-11-15] MEDS: ALLOPURINOL 100 MG (ZYLOPRIM) TAB PO SCH (08:13)
[2019-11-15] MEDS: CARVEDILOL 12.5 MG (COREG) TABLET PO SCH (08:13)
[2019-11-15] MEDS: DULoxetine 30 MG (CYMBALTA) CAP PO SCH (08:13)
[2019-11-15] MEDS: CLOPIDOGREL 75 MG (PLAVIX) TABLET PO SCH (08:13)
[2019-11-15] MEDS: ENALAPRIL 2.5 MG (VASOTEC) TAB PO SCH (08:13)
[2019-11-15] MEDS ORDERED: ENOXAPARIN 40 MG/0.4 ML (LOVENOX) SYR SC SCH (09:00)
--- NOTE | 2019-11-15 09:40 | Physical Therapy Daily Note ---
PT Daily Note-Current Subjective Pt presents reclined in bed upon arrival to room, agreeable to therapy treatment at this time. pt has no complaints of pain Appearance Following session, pt up in chair with legs elevated. Call light and tray within reach, all needs met at this time., Mental Status Patient Orientation: Person, Place Attachments: Oxygen, Barney Catheter Transfers SCALE: Activities may be completed with or without assistive devices. 6-Rxbvbvzsek-nimafpe completes the activity by him/herself with no assistance from a helper. 5-Set-up or Clean-up Assistance-helper sets up or cleans up; patient completes a ctivity. [place] assists only prior to or following the activity. 4-Supervision or Touching Assistance-helper provides verbal cues and/or touching/steadying and/or contact guard assistance as patient completes activity. Assistance may be provided throughout the activity or intermittently. 3-Partial/Moderate Assistance-helper does LESS THAN HALF the effort. [place] lifts, holds or supports trunk or limbs, but provides less than half the effort. 2-Substantial/Maximal Assistance-helper does MORE THAN HALF the effort. [place] lifts or holds trunk or limbs and provides more than half the effort. 9-Ugyntvkpt-ctuego does ALL the effort. Patient does none of the effort to complete the activity. Or, the assistance of 2 or more helpers is required for the patient to complete the activity. If activity was not attempted, code reason: 7-Patient Refused. 9-Not Applicable-not attempted and the patient did not perform the activity before the current illness, exacerbation or injury. 10-Not Attempted due to Environmental Limitations-(lack of equipment, weather restraints, etc.). 88-Not Attempted due to Medical Conditions or Safety Concerns. Sit to Lying (QC): 4 Sit to Stand (QC): 3 Gait Training Distance: 15' x2 Walk 10 feet (QC): 3 Gait Assistive Device: FWW Pt with slow, steady gait. No gross LOB noted Exercises Seated Therapy Exercises: Ankle pumps, Long arc quads, Hip flexion Assessment Current Status: Fair Progress Pt with good participation this visit, will continue to progress activity tolerance as able PT Skilled Nursing Goals Power Systems Engineer Goals PT Power Systems Engineer Goals Time Frame: Nov 25, 2019 Roll Left & Right (QC): 5 Sit to Lying (QC): 5 Lying-Sitting on Side/Bed(QC): 5 Sit to Stand (QC): 5 Chair/Awr-xw-Dtova Xfer(QC): 5 Toilet Transfer (QC): 5 Does the Patient Walk: Yes Walk 10 feet (QC): 5 Walk 50ft with 2 Turns (QC): 5 Walk 150 ft (QC): 5 PT Plan Problem List Problem List: Activity Tolerance, Functional Strength, Safety, Balance, Gait, Transfer, Bed Mobility, ROM Treatment/Plan Treatment Plan: Continue Plan of Care Treatment Plan: Bed Mobility, Education, Functional Activity [place], Functional Strength, Gait, Safety, Therapeutic Exercise, Transfers Treatment Duration: Nov 25, 2019 Frequency: 6 times per week Estimated Hrs Per Day: .25 hour per day Patient and/or Family Agrees t: Yes Time/GCodes Time In: 910 Time Out: 935 Total Billed Treatment Time: 25 Total Billed Treatment 1 visit FA (13') EX (10') LAURITA BABCOCK PT Nov 15, 2019 09:40
--- NOTE | 2019-11-15 10:09 | Occupational Ther Daily Note ---
OT Current Status-Daily Note Subjective Pt seated in recliner, agreeable to OT Tx. Pt reports she is hoping to return to [facility] today. ADL-Treatment Therapy Code Descriptions/Definitions Functional [place] Measure: 0=Not Assessed/NA 4=Minimal Assistance 1=Total Assistance 5=Supervision or Setup 2=Maximal Assistance 6=Modified [place] 3=Moderate Assistance 7=Complete IndependenceSCALE: Activities may be completed with or without assistive devices. 9-Jrpyulngxh-lzhkjid completes the activity by him/herself with no assistance from a helper. 5-Set-up or Clean-up Assistance-helper sets up or cleans up; patient completes activity. [place] assists only prior to or following the activity. 4-Supervision or Touching Assistance-helper provides verbal cues and/or touching/steadying and/or contact guard assistance as patient completes activity. Assistance may be provided throughout the activity or intermittently. 3-Partial/Moderate Assistance-helper does LESS THAN HALF the effort. [place] lifts, holds or supports trunk or limbs, but provides less than half the effort. 2-Substantial/Maximal Assistance-helper does MORE THAN HALF the effort. [place] lifts or holds trunk or limbs and provides more than half the effort. 0-Baphkykii-slvvrj does ALL the effort. Patient does none of the effort to complete the activity. Or, the assistance of 2 or more helpers is required for the patient to complete the activity. If activity was not attempted, code reason: 7-Patient Refused. 9-Not Applicable-not attempted and the patient did not perform the activity before the current illness, exacerbation or injury. 10-Not Attempted due to Environmental Limitations-(lack of equipment, weather restraints, etc.). 88-Not Attempted due to Medical Conditions or Safety Concerns. Eating (QC): 6 (Pt reports no difficulties eating breakfast, and she was able to open breakfast syrup without help) Oral Hygiene (QC): 5 (set up at tray table, pt able to complete oral care with increased time.) Other Treatment Pt seated at recliner, reports breakfast was good. She completed oral care with setup/clean up assistance. Pt then stood at FWW, SBA ~3mins, as wound nurse changes assesses sore on pt's buttocks. Pt then returns to sitting. Post OT Tx, pt seated in recliner, call light in reach and all needs met. Education OT Patient Education: Correct positioning, Energy conservation, Modified ADL techniques, Progress toward Goal/Update tx plan, Purpose of tx/functional activities, Transfer techniques Teaching Recipient: Patient Teaching Methods: Discussion Response to Teaching: Verbalize Understanding OT Shelter Goals Shelter Goals Time Frame: Nov 24, 2019 Eating (QC): 6 Oral Hygiene (QC): 6 Toileting Hygiene (QC): 6 Shower/Bathe Self (QC): 3 Upper Body Dressing (QC): 5 Lower Body Dressing (QC): 5 On/Off Footwear (QC): 5 1=Demonstrate adherence to instructed precautions during ADL tasks. 2=Patient will verbalize/demonstrate understanding of assistive devices/modifications for ADL. 3=Patient will improve strength/tolerance for activity to enable patient to perform ADL's. OT Education/Plan Problem List/Assessment Assessment: Decreased Activ Tolerance, Decreased UE Strength, Impaired I ADL's, Impaired Self-Care Skills Discharge Recommendations Plan/Recommendations: Continue POC Treatment Plan/Plan of Care Patient would benefit from OT for education, treatment and training to promote independence in ADL's, mobility, safety and/or upper extremity function for ADL's. Plan of Care: ADL Retraining, Functional Mobility, UE Funct Exercise/Act Treatment Duration: Nov 24, 2019 Frequency: 5 times per week Rehab Potential: Fair Time/GCodes Start Time: 09:40 Stop Time: 09:56 Total Time Billed (hr/min): 16 Billed Treatment Time 1, ADL SHADI COHEN OT Nov 15, 2019 10:09
--- NOTE | 2019-11-15 10:22 | NUR ---
IRF Evaluation Determination: Accepted Chart review complete and findings discussed with Dr. Parada - patient accepted for admission. Anticipate admission, 11/15/19. Thank you for this referral.
--- NOTE | 2019-11-15 10:34 | Discharge Summary ---
Diagnosis/Chief Complaint Date of Admission Nov 15, 2019 at 08:53 Date of Discharge Discharge Date: Nov 15, 2019 Discharge Diagnosis Assessment: AMS Acute on chronic kidney injury UTI COPD Lymphedema HTN CHF T2DM Obesity Obesity-hypoventilation syndrome Plan: Monitor mental status Monitor fluid/electrolytes/VS Encourage PO intake and monitor nutritional status Continue Rocephin PT/OT assessment Assess for transfer to IRF vs Assisted living vs correction Discharge Summary Discharge Physical Examination Allergies: Coded Allergies: NSAIDS (Non-Steroidal Anti-Inflamma (Unverified Allergy, Mild, 03/18/09) Influenza Virus Vaccines (Verified Allergy, Unknown, 12/07/18) Penicillins (Verified Allergy, Unknown, 01/03/06) Sulfa (Sulfonamide Antibiotics) (Verified Allergy, Unknown, 01/03/06) aspirin (Verified Allergy, Unknown, 01/03/06) atorvastatin (Verified Allergy, Unknown, 12/07/18) carbamazepine (Verified Allergy, Unknown, 09/20/06) cephalexin (Verified Allergy, Unknown, 01/03/06) iodine (Verified Allergy, Unknown, 01/03/06) latex (Unverified Allergy, Unknown, 06/21/13) meloxicam (Verified Allergy, Unknown, 12/07/18) peanut (Verified Allergy, Unknown, 12/07/18) Vitals & I&Os Vital Signs Date Time Temp Pulse Resp B/P (MAP) Pulse Ox O2 Delivery O2 Flow Rate FiO2 11/15/19 10:34 96 Nasal Cannula 1.00 11/15/19 08:00 36.2 56 16 159/77 (104) 11/13/19 15:49 30 General Appearance: Alert, Oriented X3 Respiratory: Normal Air Movement Cardiovascular: Regular Rate Neuro: Normal Speech Psych/Mental Status: Mental Status NL Hospital Course Was the Problem List Reviewed?: Yes Hospital Course: Pt had a lengthy hospital course. She was admitted for altered mental status and acute kidney injury on chronic renal insufficiency. She was provided gentle IV fluids, provided Rocephin for abnormal UA but that was no growth to date so that was discontinued. Overall she actually responded very well, returned back to her baseline and was deemed stable for inpatient rehab to continue her recovery there. Overall prognosis very poor for obesity hypoventilation syndrome, noncompliant with CPAP and BiPAP and Ventimask so she will be optimized and then DC back to [facility]. Labs (last 24 hrs) Laboratory Tests 11/10/19 13:55: White Blood Count 8.5, Red Blood Count 3.96L, Hemoglobin 12.5, Hematocrit 39, Mean Corpuscular Volume 98, Mean Corpuscular Hemoglobin 32, Mean Corpuscular Hemoglobin Concent 32, Red Cell Distribution Width 14.0, Platelet Count 162, Mean Platelet Volume 11.1H, Neutrophils (%) (Auto) 75, Lymphocytes (%) (Auto) 12, Monocytes (%) (Auto) 10, Eosinophils (%) (Auto) 3, Basophils (%) (Auto) 0, Neutrophils # (Auto) 6.3, Lymphocytes # (Auto) 1.0, Monocytes # (Auto) 0.9, Eosinophils # (Auto) 0.3, Basophils # (Auto) 0.0, Sodium Level 136, Potassium Level 4.3, Chloride Level 102, Carbon Dioxide Level 26, Anion Gap 8, Blood Urea Nitrogen 28H, Creatinine 3.05#H, Estimat Glomerular Filtration Rate 15, BUN/C reatinine Ratio 9, Glucose Level 104, Lactic Acid Level 1.11, Calcium Level 8.9, Corrected Calcium 9.5, Magnesium Level 1.6, Total Bilirubin 1.0, Aspartate Amino Transf (AST/SGOT) 23, Alanine Aminotransferase (ALT/SGPT) 11, Alkaline Phosphatase 57, B-Type Natriuretic Peptide 35.4, Total Protein 5.6L, Albumin 3.2, Thyroid Stimulating Hormone (TSH) 1.48, Free Thyroxine 0.91 11/10/19 14:45: Blood Gas Puncture Site LT RAD, Blood Gas Patient Temperature 36.6, Arterial Blood pH 7.33*L, Arterial Blood Partial Pressure CO2 52H, Arterial Blood Partial Pressure O2 67L, Arterial Blood HCO3 27, Arterial Blood Total CO2 28.2, Arterial Blood Oxygen Saturation 92L, Arterial Blood Base Excess 1.2, Izaiah Test YES-POS, Blood Gas Ventilator Setting NO, Blood Gas Inspired Oxygen 3 L 11/10/19 15:15: Urine Color YELLOW, Urine Clarity SL CLOUDY, Urine pH 5.0, Urine Specific [place] >=1.030, Urine Protein TRACEH, Urine Glucose (UA) NEGATIVE, Urine Ketones NEGATIVE, Urine Nitrite NEGATIVE, Urine Bilirubin NEGATIVE, Urine Urobilinogen 0.2, Urine Leukocyte Esterase 1+H, Urine RBC (Auto) NEGATIVE, Urine RBC NONE, Urine WBC RARE, Urine Squamous Epithelial Cells 5-10, Urine Crystals NONE, Urine Amorphous Sediment MOD DENISE URATESH, Urine Bacteria MODERATEH, Urine Casts NONE, Urine Mucus NEGATIVE, Urine Culture Indicated NO 11/11/19 02:20: White Blood Count 12.8H, Red Blood Count 4.07L, Hemoglobin 12.8, Hematocrit 39, Mean Corpuscular Volume 96, Mean Corpuscular Hemoglobin 31, Mean Corpuscular Hemoglobin Concent 33, Red Cell Distribution Width 13.7, Platelet Count 148, Mean Platelet Volume 10.9H, Neutrophils (%) (Auto) 95H, Lymphocytes (%) (Auto) 4L, Monocytes (%) (Auto) 1, Eosinophils (%) (Auto) 0, Basophils (%) (Auto) 0, Neutrophils # (Auto) 12.2H, Lymphocytes # (Auto) 0.5L, Monocytes # (Auto) 0.1, Eosinophils # (Auto) 0.0, Basophils # (Auto) 0.0, Sodium Level 137, Potassium Level 4.5, Chloride Level 103, Carbon Dioxide Level 23, Anion Gap 11, Blood Urea Nitrogen 29H, Creatinine 2.92H, Estimat Glomerular Filtration Rate 16, BUN/Creatinine Ratio 10, Glucose Level 137H, Calcium Level 8.7, Corrected Calcium 9.4, Total Bilirubin 0.8, Aspartate Amino Transf (AST/SGOT) 22, Alanine Aminotransferase (ALT/SGPT) 12, Alkaline Phosphatase 54, Total Protein 5.5L, Albumin 3.1L 11/12/19 05:14: White Blood Count 9.8, Red Blood Count 3.86L, Hemoglobin 12.2, Hematocrit 36, Mean Corpuscular Volume 93, Mean Corpuscular Hemoglobin 32, Mean Corpuscular Hemoglobin Concent 34, Red Cell Distribution Width 12.9, Platelet Count 134, Mean Platelet Volume 11.0H, Neutrophils (%) (Auto) 89H, Lymphocytes (%) (Auto) 7L, Monocytes (%) (Auto) 5, Eosinophils (%) (Auto) 0, Basophils (%) (Auto) 0, Neutrophils # (Auto) 8.7H, Lymphocytes # (Auto) 0.7L, Monocytes # (Auto) 0.5, Eosinophils # (Auto) 0.0, Basophils # (Auto) 0.0, Sodium Level 136, Potassium Level 3.8, Chloride Level 102, Carbon Dioxide Level 24, Anion Gap 10, Blood Urea Nitrogen 34H, Creatinine 2.53H, Estimat Glomerular Filtration Rate 19, BUN/Creatinine Ratio 13, Glucose Level 129H, Calcium Level 8.4L, Corrected Calcium 9.4, Total Bilirubin 0.5, Aspartate Amino Transf (AST/SGOT) 25, Alanine Aminotransferase (ALT/SGPT) 9, Alkaline Phosphatase 45, B-Type Natriuretic Peptide 608.9H, Total Protein 4.8L, Albumin 2.8L 11/13/19 05:09: White Blood Count 9.0, Red Blood Count 3.87L, Hemoglobin 12.2, Hematocrit 36, Mean Corpuscular Volume 93, Mean Corpuscular Hemoglobin 32, Mean Corpuscular Hemoglobin Concent 34, Red Cell Distribution Width 13.1, Platelet Count 150, Mean Platelet Volume 10.8H, Neutrophils (%) (Auto) 84H, Lymphocytes (%) (Auto) 8L, Monocytes (%) (Auto) 8, Eosinophils (%) (Auto) 0, Basophils (%) (Auto) 0, Neutrophils # (Auto) 7.5, Lymphocytes # (Auto) 0.7L, Monocytes # (Auto) 0.7, Eosinophils # (Auto) 0.0, Basophils # (Auto) 0.0, Sodium Level 138, Potassium Level 3.7, Chloride Level 103, Carbon Dioxide Level 24, Anion Gap 11, Blood Urea Nitrogen 36H, Creatinine 2.18H, Estimat Glomerular Filtration Rate 22, BUN/Creatinine Ratio 17, Glucose Level 118H, Calcium Level 8.4L, Corrected Calcium 9.4, Total Bilirubin 0.4, Aspartate Amino Transf (AST/SGOT) 25, Alanine Aminotransferase (ALT/SGPT) 12, Alkaline Phosphatase 42, B-Type Natriuretic Peptide 438.3H, Total Protein 4.9L, Albumin 2.8L 11/14/19 04:40: White Blood Count 8.0, Red Blood Count 4.03L, Hemoglobin 12.6, Hematocrit 37, Mean Corpuscular Volume 93, Mean Corpuscular Hemoglobin 31, Mean Corpuscular Hemoglobin Concent 34, Red Cell Distribution Width 13.2, Platelet Count 154, Mean Platelet Volume 10.9H, Neutrophils (%) (Auto) 79H, Lymphocytes (%) (Auto) 11L, Monocytes (%) (Auto) 10, Eosinophils (%) (Auto) 0, Basophils (%) (Auto) 0, Neutrophils # (Auto) 6.3, Lymphocytes # (Auto) 0.9L, Monocytes # (Auto) 0.8, Eosinophils # (Auto) 0.0, Basophils # (Auto) 0.0, Sodium Level 136, Potassium Level 3.6, Chloride Level 102, Carbon Dioxide Level 26, Anion Gap 8, Blood Urea Nitrogen 33H, Creatinine 1.79H, Estimat Glomerular Filtration Rate 28, BUN/Creatinine Ratio 18, Glucose Level 92, Calcium Level 8.5, Corrected Calcium 9.4, Total Bilirubin 0.4, Aspartate Amino Transf (AST/SGOT) 27, Alanine Aminotransferase (ALT/SGPT) 14, Alkaline Phosphatase 44, Total Protein 4.8L, Albumin 2.9L 11/15/19 04:35: White Blood Count 8.5, Red Blood Count 4.03, Hemoglobin 12.8, Hematocrit 38, Mean Corpuscular Volume 93, Mean Corpuscular Hemoglobin 32, Mean Corpuscular Hemoglobin Concent 34, Red Cell Distribution Width 12.6, Platelet Count 144, Mean Platelet Volume 10.8, Neutrophils (%) (Auto) 76H, Lymphocytes (%) (Auto) 14, Monocytes (%) (Auto) 10, Eosinophils (%) (Auto) 0, Basophils (%) (Auto) 0, Neutrophils # (Auto) 6.4, Lymphocytes # (Auto) 1.2, Monocytes # (Auto) 0.8, E osinophils # (Auto) 0.0, Basophils # (Auto) 0.0, Sodium Level 138, Potassium Level 3.8, Chloride Level 103, Carbon Dioxide Level 27, Anion Gap 8, Blood Urea Nitrogen 32H, Creatinine 1.56H, Estimat Glomerular Filtration Rate 32, BUN/Creatinine Ratio 21, Glucose Level 83, Calcium Level 8.6, Corrected Calcium 9.6, Total Bilirubin 0.6, Aspartate Amino Transf (AST/SGOT) 20, Alanine Aminotransferase (ALT/SGPT) 17, Alkaline Phosphatase 42, Total Protein 4.6L, Albumin 2.8L, Immature Granulocyte % (Auto) 1, Immature Granulocyte # (Auto) 0.1 Microbiology 11/10/19 Blood Culture - Final, Complete No growth Pending Labs Microbiology Date/Time Source Procedure Growth Status 11/10/19 14:35 Peripheral Rt Ac Blood Culture - Final No growth Complete 11/10/19 13:55 Peripheral Other Blood Culture - Final No growth Complete Laboratory Tests 11/10/19 13:55: White Blood Count 8.5, Red Blood Count 3.96, Hemoglobin 12.5, Hematocrit 39, Mean Corpuscular Volume 98, Mean Corpuscular Hemoglobin 32, Mean Corpuscular Hemoglobin Concent 32, Red Cell Distribution Width 14.0, Platelet Count 162, Mean Platelet Volume 11.1, Neutrophils (%) (Auto) 75, Lymphocytes (%) (Auto) 12, Monocytes (%) (Auto) 10, Eosinophils (%) (Auto) 3, Basophils (%) (Auto) 0, Neutrophils # (Auto) 6.3, Lymphocytes # (Auto) 1.0, Monocytes # (Auto) 0.9, Eosinophils # (Auto) 0.3, Basophils # (Auto) 0.0, Sodium Level 136, Potassium Level 4.3, Chloride Level 102, Carbon Dioxide Level 26, Anion Gap 8, Blood Urea Nitrogen 28, Creatinine 3.05, Estimat Glomerular Filtration Rate 15, BUN/Creatinine Ratio 9, Glucose Level 104, Lactic Acid Level 1.11, Calcium Level 8.9, Corrected Calcium 9.5, Magnesium Level 1.6, Total Bilirubin 1.0, Aspartate Amino Transf (AST/SGOT) 23, Alanine Aminotransferase (ALT/SGPT) 11, Alkaline Phosphatase 57, B-Type Natriuretic Peptide 35.4, Total Protein 5.6, Albumin 3.2, Thyroid Stimulating Hormone (TSH) 1.48, Free Thyroxine 0.91 11/10/19 14:45: Blood Gas Puncture Site LT RAD, Blood Gas Patient Temperature 36.6, Arterial Blood pH 7.33, Arterial Blood Partial Pressure CO2 52, Arterial Blood Partial Pressure O2 67, Arterial Blood HCO3 27, Arterial Blood Total CO2 28.2, Arterial Blood Oxygen Saturation 92, Arterial Blood Base Excess 1.2, Izaiah Test YES-POS, Blood Gas Ventilator Setting NO, Blood Gas Inspired Oxygen 3 L 11/10/19 15:15: Urine Color YELLOW, Urine Clarity SL CLOUDY, Urine pH 5.0, Urine Specific [place] >=1.030, Urine Protein TRACE, Urine Glucose (UA) NEGATIVE, Urine Ketones NEGATIVE, Urine Nitrite NEGATIVE, Urine Bilirubin NEGATIVE, Urine Urobilinogen 0.2, Urine Leukocyte Esterase 1+, Urine RBC (Auto) NEGATIVE, Urine RBC NONE, Urine WBC RARE, Urine Squamous Epithelial Cells 5-10, Urine Crystals NONE, Urine Amorphous Sediment MOD DENISE URATES, Urine Bacteria MODERATE, Urine Casts NONE, Urine Mucus NEGATIVE, Urine Culture Indicated NO 11/11/19 02:20: White Blood Count 12.8, Red Blood Count 4.07, Hemoglobin 12.8, Hematocrit 39, Mean Corpuscular Volume 96, Mean Corpuscular Hemoglobin 31, Mean Corpuscular Hemoglobin Concent 33, Red Cell Distribution Width 13.7, Platelet Count 148, Mean Platelet Volume 10.9, Neutrophils (%) (Auto) 95, Lymphocytes (%) (Auto) 4, Monocytes (%) (Auto) 1, Eosinophils (%) (Auto) 0, Basophils (%) (Auto) 0, Neutrophils # (Auto) 12.2, Lymphocytes # (Auto) 0.5, Monocytes # (Auto) 0.1, Eosinophils # (Auto) 0.0, Basophils # (Auto) 0.0, Sodium Level 137, Potassium Level 4.5, Chloride Level 103, Carbon Dioxide Level 23, Anion Gap 11, Blood Urea Nitrogen 29, Creatinine 2.92, Estimat Glomerular Filtration Rate 16, BUN/Creatinine Ratio 10, Glucose Level 137, Calcium Level 8.7, Corrected Calcium 9.4, Total Bilirubin 0.8, Aspartate Amino Transf (AST/SGOT) 22, Alanine Aminotransferase (ALT/SGPT) 12, Alkaline Phosphatase 54, Total Protein 5.5, Albumin 3.1 11/12/19 05:14: White Blood Count 9.8, Red Blood Count 3.86, Hemoglobin 12.2, Hematocrit 36, Mean Corpuscular Volume 93, Mean Corpuscular Hemoglobin 32, Mean Corpuscular Hemoglobin Concent 34, Red Cell Distribution Width 12.9, Platelet Count 134, Mean Platelet Volume 11.0, Neutrophils (%) (Auto) 89, Lymphocytes (%) (Auto) 7, Monocytes (%) (Auto) 5, Eosinophils (%) (Auto) 0, Basophils (%) (Auto) 0, Neutrophils # (Auto) 8.7, Lymphocytes # (Auto) 0.7, Monocytes # (Auto) 0.5, Eosinophils # (Auto) 0.0, Basophils # (Auto) 0.0, Sodium Level 136, Potassium Level 3.8, Chloride Level 102, Carbon Dioxide Level 24, Anion Gap 10, Blood Urea Nitrogen 34, Creatinine 2.53, Estimat Glomerular Filtration Rate 19, BUN/Creatinine Ratio 13, Glucose Level 129, Calcium Level 8.4, Corrected Calcium 9.4, Total Bilirubin 0.5, Aspartate Amino Transf (AST/SGOT) 25, Alanine Aminotransferase (ALT/SGPT) 9, Alkaline Phosphatase 45, B-Type Natriuretic Peptide 608.9, Total Protein 4.8, Albumin 2.8 11/13/19 05:09: White Blood Count 9.0, Red Blood Count 3.87, Hemoglobin 12.2, Hematocrit 36, Mean Corpuscular Volume 93, Mean Corpuscular Hemoglobin 32, Mean Corpuscular Hemoglobin Concent 34, Red Cell Distribution Width 13.1, Platelet Count 150, Mean Platelet Volume 10.8, Neutrophils (%) (Auto) 84, Lymphocytes (%) (Auto) 8, Monocytes (%) (Auto) 8, Eosinophils (%) (Auto) 0, Basophils (%) (Auto) 0, Neutrophils # (Auto) 7.5, Lymphocytes # (Auto) 0.7, Monocytes # (Auto) 0.7, Eosinophils # (Auto) 0.0, Basophils # (Auto) 0.0, Sodium Level 138, Potassium Level 3.7, Chloride Level 103, Carbon Dioxide Level 24, Anion Gap 11, Blood Urea Nitrogen 36, Creatinine 2.18, Estimat Glomerular Filtration Rate 22, BUN/Creatinine Ratio 17, Glucose Level 118, Calcium Level 8.4, Corrected Calcium 9.4, Total Bilirubin 0.4, Aspartate Amino Transf (AST/SGOT) 25, Alanine Aminotransferase (ALT/SGPT) 12, Alkaline Phosphatase 42, B-Type Natriuretic Peptide 438.3, Total Protein 4.9, Albumin 2.8 11/14/19 04:40: White Blood Count 8.0, Red Blood Count 4.03, Hemoglobin 12.6, Hematocrit 37, Mean Corpuscular Volume 93, Mean Corpuscular Hemoglobin 31, Mean Corpuscular Hemoglobin Concent 34, Red Cell Distribution Width 13.2, Platelet Count 154, Mean Platelet Volume 10.9, Neutrophils (%) (Auto) 79, Lymphocytes (%) (Auto) 11, Monocytes (%) (Auto) 10, Eosinophils (%) (Auto) 0, Basophils (%) (Auto) 0, Neutrophils # (Auto) 6.3, Lymphocytes # (Auto) 0.9, Monocytes # (Auto) 0.8, Eosinophils # (Auto) 0.0, Basophils # (Auto) 0.0, Sodium Level 136, Potassium Level 3.6, Chloride Level 102, Carbon Dioxide Level 26, Anion Gap 8, Blood Urea Nitrogen 33, Creatinine 1.79, Estimat Glomerular Filtration Rate 28, BUN/Creat inine Ratio 18, Glucose Level 92, Calcium Level 8.5, Corrected Calcium 9.4, Total Bilirubin 0.4, Aspartate Amino Transf (AST/SGOT) 27, Alanine Aminotransferase (ALT/SGPT) 14, Alkaline Phosphatase 44, Total Protein 4.8, Albumin 2.9 11/15/19 04:35: White Blood Count 8.5, Red Blood Count 4.03, Hemoglobin 12.8, Hematocrit 38, Mean Corpuscular Volume 93, Mean Corpuscular Hemoglobin 32, Mean Corpuscular Hemoglobin Concent 34, Red Cell Distribution Width 12.6, Platelet Count 144, Mean Platelet Volume 10.8, Neutrophils (%) (Auto) 76, Lymphocytes (%) (Auto) 14, Monocytes (%) (Auto) 10, Eosinophils (%) (Auto) 0, Basophils (%) (Auto) 0, Neutrophils # (Auto) 6.4, Lymphocytes # (Auto) 1.2, Monocytes # (Auto) 0.8, Eosinophils # (Auto) 0.0, Basophils # (Auto) 0.0, Sodium Level 138, Potassium Level 3.8, Chloride Level 103, Carbon Dioxide Level 27, Anion Gap 8, Blood Urea Nitrogen 32, Creatinine 1.56, Estimat Glomerular Filtration Rate 32, BUN/Creatinine Ratio 21, Glucose Level 83, Calcium Level 8.6, Corrected Calcium 9.6, Total Bilirubin 0.6, Aspartate Amino Transf (AST/SGOT) 20, Alanine Aminotransferase (ALT/SGPT) 17, Alkaline Phosphatase 42, Total Protein 4.6, Albumin 2.8, Immature Granulocyte % (Auto) 1, Immature Granulocyte # (Auto) 0.1 Discharge Home Medications: Active Scripts Active Reported Lactulose 10 Gm/15 Ml Solution 30 Ml PO TID PRN Vitamin D3 (Cholecalciferol (Vitamin D3)) 50 Mcg Tablet 50 Mcg PO HS Locoid 0.1% Lipocream (Hydrocortisone Butyrate/Emoll) 15 Gm Cream..g. 1 Applic TP BID PRN Montelukast Sodium 10 Mg Tablet 10 Mg PO HS Neurontin (Gabapentin) 300 Mg Capsule 300 Mg PO HS Triamcinolone Acetonide 0.1% Cream (Triamcinolone Acet) 15 Gm Cr 1 Applic TP BID PRN APPLY TO LEFT LEG Bumetanide 2 Mg Tablet 2 Mg PO DAILY PRN USE IF GAINED MORE THAN 5 POUNDS A DAY Guaifenesin Dm Syrup (Guaifenesin/Dextromethorphan) 5 Ml Syrup 5 Ml PO Q6H PRN Topiramate 25 Mg Tablet 25 Mg PO HS Iprat-Albut 0.5-3(2.5) mg/3 ml (Ipratropium/Albuterol Sulfate) 3 Ml Ampul.neb 3 Ml NEB 0800,1600 Iron (Ferrous Sulfate) 325 Mg Tablet 325 Mg PO DAILY Bumetanide 2 Mg Tablet 2 Mg PO DAILY Enalapril Maleate 2.5 Mg Tablet 2.5 Mg PO DAILY Ipratropium [place] 0.2 Mg/1 Ml Solution 0.2 Mg NEB TID PRN Guaifenesin AC Cough Syrup (Guaifenesin/Codeine Phosphate) 473 Ml Liquid 5 Ml PO Q6H PRN Oxycodone HCl 20 Mg Tablet 20 Mg PO 0600,1400,2200 Cranberry (Cranberry Fruit) 400 Mg Tablet 400 Mg PO BID Allopurinol 100 Mg Tablet 100 Mg PO DAILY Vitamin C (Ascorbate Calcium) 500 Mg Tablet 500 Mg PO DAILY Detrol LA (Tolterodine Tartrate) 4 Mg Cap 4 Mg PO DAILY Macrodantin (Nitrofurantoin Macrocrystal) 100 Mg Capsule 100 Mg PO 1700 TAKE WITH DINNER Calmoseptine Ointment (Menthol/Lanolin/Calamine/Znox) 71 Gm Oint 1 Applic TP UD PRN APPLY TO JARETT AREA Oxycodone HCl 20 Mg Tablet 20 Mg PO Q6H PRN Simvastatin 20 Mg Tablet 20 Mg PO HS Plavix (Clopidogrel Bisulfate) 75 Mg Tablet 75 Mg PO DAILY Allergy Relief (Cetirizine HCl) 10 Mg Tablet 10 Mg PO DAILY Carvedilol 12.5 Mg Tablet 12.5 Mg PO BID Duloxetine HCl 60 Mg Capsule.dr 60 Mg PO DAILY Hydroxychloroquine Sulfate 200 Mg Tablet 200 Mg PO 1200,1700 TAKES WITH FOOD Nexium (Esomeprazole Magnesium) 40 Mg Cap 40 Mg PO HS Advair 250-50 Diskus (Fluticasone/Salmeterol) 1 Each Blst.w.dev 1 Puff IH DAILY Fluticasone Propionate 16 Gm [place].susp 1 [place] NS DAILY PRN Potassium Chloride 10 Meq Capsule.er 20 Meq PO 1200,1700 TAKES 2 (10MEQ) CAPSULES TAKES WITH FOOD Instructions to patient/family Please see electronic discharge instructions given to patient. Clinical Quality Measures DVT/VTE Risk/Contraindication: Risk Factor Score Per Nursin RFS Level Per Nursing on Admit: 4+=Very High SIENNA MADERA DO Nov 15, 2019 10:34
--- NOTE | 2019-11-15 11:32 | NUR ---
CM/SS finalized discharge. Plan: Patient will discharge to Inpatient Rehab today 11/14. CM/SS visited with patient. She is agreeable with plan and states she does not have any further questions. CM/SS attempted to help patient contact her son Herman with room phone. Patient did not remember number. CM/SS attempted to contact Herman ([phone]). No answer and voice mail was left with call back number. CM/SS contacted [facility] to inform them of discharge plan. They verbalized understanding. No further interventions needed at this time.
--- NOTE | 2019-11-15 11:41 | Progress Note ---
GEE ZELAYA STUDENT 11/15/19 1141: Progress Note Hospital course: 11/10/19 - 11/15/19 Kiah was admitted for UTI and increased confusion from [facility]. She was given IV fluids and Ceftriaxone during the course of her stay with improvement of confusion and kidney function. She is being transferred to [facility] for PT/OT rehab to improve independent functioning before d/c to [facility]. CLARE MADERA DO 11/16/19 0503: Supervisory-Addendum Brief Verification & Attestation Participated in pt care: history, MDM, physical Personally performed: exam, history, MDM, supervision of care Care discussed with: Medical Student Procedures: n/a Results interpretation: Verified all documentation Verification and Attestation of Medical Student E/M Service A medical student performed and documented this service in my presence. I reviewed and verified all information documented by the medical student and made modifications to such information, when appropriate. I personally performed the physical exam and medical decision making. Clare Madera, Nov 16, 2019,05:03 GEE ZELAYA STUDENT Nov 15, 2019 11:41 CLARE MADERA DO Nov 16, 2019 05:03
== END 2019-11-15 11:25 | DRG 683 ==
LOC: EDUNIT# 13:43 → ER 13:44 → CSD 15:52 → 4TH 11-11 10:17 → OBSVTOIN 11-15 08:53
PROVIDERS: ADMIT Internal Medicine; ATTEND Internal Medicine
DX: N17.9 Acute kidney failure, unspecified (principal); N39.0 Urinary tract infection, site not specified; I13.0 Hypertensive heart and chronic kidney disease with heart failure and stage 1 through stage 4 chronic kidney disease, or unspecified chronic kidney disease; I50.30 Unspecified diastolic (congestive) heart failure; J44.1 Chronic obstructive pulmonary disease with (acute) exacerbation; E66.2 Morbid (severe) obesity with alveolar hypoventilation; Z68.41 Body mass index [BMI] 40.0-44.9, adult; E86.0 Dehydration; E11.22 Type 2 diabetes mellitus with diabetic chronic kidney disease; N18.9 Chronic kidney disease, unspecified; E11.40 Type 2 diabetes mellitus with diabetic neuropathy, unspecified; M34.1 CR(E)ST syndrome; E78.00 Pure hypercholesterolemia, unspecified; K21.9 Gastro-esophageal reflux disease without esophagitis; M06.9 Rheumatoid arthritis, unspecified; M19.91 Primary osteoarthritis, unspecified site; M54.9 Dorsalgia, unspecified; F41.9 Anxiety disorder, unspecified; F32.9 Major depressive disorder, single episode, unspecified; I89.0 Lymphedema, not elsewhere classified; Z66 Do not resuscitate; B96.20 Unspecified Escherichia coli [E. coli] as the cause of diseases classified elsewhere; Z85.3 Personal history of malignant neoplasm of breast; Z98.1 Arthrodesis status; Z90.49 Acquired absence of other specified parts of digestive tract; Z90.710 Acquired absence of both cervix and uterus; Z90.89 Acquired absence of other organs
CPT/HCPCS: 36415; 36600; 51702; 71045; 80053; 81000; 82805; 83605; 83735; 83880; 84439; 84443; 85025; 87040; 93005; 94640; 94664; 94760; G0378

== ENCOUNTER 2019-11-15 10:39 | Inpatient (IN) | payer MEDICARE, OTHER ==
[~2019-11-15] VITALS: Ht 162.6 cm; Wt 111.0 kg
[~2019-11-15 10:39] MED LIST changes: +CHOL200014 PO; +GABA300C PO; +LACT10SO PO; +[UNRECOGNIZED DRUG - CODE] TP
[2019-11-15] MEDS ORDERED: diphenhydrAMINE 25 MG TAB (BENADRYL) PO PRN (10:45)
[2019-11-15] MEDS ORDERED: FLEET ENEMA ADULT 1 EA BTL PR PRN (10:45)
[2019-11-15] MEDS ORDERED: LACTULOSE SYRUP 10GM/15ML (ENULOSE) 30ML UDC PO PRN (10:45)
[2019-11-15] MEDS ORDERED: ALPRAZolam 0.25 MG (XANAX) TAB PO PRN (10:45)
[2019-11-15] MEDS ORDERED: CALCIUM CARBONATE 500 MG (TUMS) TAB.CHEW PO PRN (10:45)
[2019-11-15] MEDS ORDERED: LOPERAMIDE 2 MG (IMODIUM) TABLET PO PRN (10:45)
[2019-11-15] MEDS ORDERED: guaiFENesin/CODEINE (ROBITUSSIN AC) 10ML UDC PO PRN (10:45)
[2019-11-15] MEDS ORDERED: MELATONIN 3 MG TABLET PO PRN (10:45)
[2019-11-15] MEDS ORDERED: ACETAMINOPHEN 500 MG TAB (TYLENOL) PO PRN (10:45)
[2019-11-15] MEDS ORDERED: BISACODYL 10 MG SUPP (DULCOLAX) PR PRN (10:45)
[2019-11-15] MEDS ORDERED: ONDANSETRON 4 MG (ZOFRAN) ORAL DISSOLVE TAB PO PRN (10:45)
[2019-11-15] MEDS ORDERED: DOCUSATE SODIUM 100 MG (COLACE) CAP PO PRN (10:45)
--- NOTE | 2019-11-15 11:17 | NUR ---
SHANNAN SAEED admitted to room 225-1, with an admitting diagnosis of DEBILITY , on 11/15/[address] [facility] via , accompanied by STAFF. SHANNAN SAEED introduced to surroundings, call light, bed controls, phone, TV, temperature control, lights, meal times, smoking policy, visitor policy, side rail policy, bathrooms and showers. Patient Rights given to patient in the handbook.SHANNAN SAEED verbalizes understanding that [facility] is not responsible for the loss or damage to any personal effects or valuables that are kept in the patients posession during their hospitalization. The following Patient Care Plans were discussed with the PT: Discharge Planning, IMPAIRED MOBILITY AND FALLS. SHANNAN SAEED verbalizes understanding of Interdisciplinary Patient Education. Patient received Patient Rights Booklet, which includes Privacy Act Statement and Data Collection Information Summary. DENIES COMPLAINTS AT THIS TIME. RIGHT [place] ACCESSED AND DRESSING D/I.
[2019-11-15 11:30] VITALS: BP 172/81
--- NOTE | 2019-11-15 12:41 | Occupational Therapy Eval ---
OT Evaluation-General/PLF Medical Diagnosis Admission Date Nov 15, 2019 at 11:17 Medical Diagnosis: debility Onset Date: Nov 10, 2019 Therapy Diagnosis Therapy Diagnosis: decreased ADLs/functional mobility Height/Weight Height (Feet): 5 Height (Inches): 4.00 Weight (Pounds): 270 Weight (Ounces): 9.0 Precautions Precautions/Isolations: Fall Prevention, Standard Precautions Referral Physician: Karma Referral Reason: Evaluation/Treatment Medical History Pertinent Medical History: Arthritis, CAD, COPD, DM, GERD, HTN, Neuropathy, Rheumatoid Arthritis Additional Medical History COPD, pneumonia, sleep apnea, chronic edema, HTN, neuropathy, renal failure, GERD, gallbladder disease, DDD, RA, arthritis, chronic back pain, anxiety/depression, appendectomy, hysterectomy, breast cancer with surgical intervention Current History Pt to ED due to increased confusion, admitted acutely, then admitted to ARU on 11/15/2019 Social History Home: Assisted Living ADL-Prior Level of Function SCALE: Activities may be completed with or without assistive devices. 4-Jkanpcpizf-vmbziiv completes the activity by him/herself with no assistance from a helper. 5-Set-up or Clean-up Assistance-helper sets up or cleans up; patient completes activity. [place] assists only prior to or following the activity. 4-Supervision or Touching Assistance-helper provides verbal cues and/or touching/steadying and/or contact guard assistance as patient completes activity. Assistance may be provided throughout the activity or intermittently. 3-Partial/Moderate Assistance-helper does LESS THAN HALF the effort. [place] lifts, holds or supports trunk or limbs, but provides less than half the effort. 2-Substantial/Maximal Assistance-helper does MORE THAN HALF the effort. [place] lifts or holds trunk or limbs and provides more than half the effort. 3-Aqkavicfv-txxnpz does ALL the effort. Patient does none of the effort to complete the activity. Or, the assistance of 2 or more helpers is required for the patient to complete the activity. If activity was not attempted, code reason: 7-Patient Refused. 9-Not Applicable-not attempted and the patient did not perform the activity before the current illness, exacerbation or injury. 10-Not Attempted due to Environmental Limitations-(lack of equipment, weather restraints, etc.). 88-Not Attempted due to Medical Conditions or Safety Concerns. ADL PLOF Comments Pts lives at [place], she has assistance with showering. She indicates she is able to dress herself but needs some assistance with footwear, she has help setting out her clothes. Pt did have difficulty with footwear, sometimes receiving assistance with task. She also has meals provided to her. Pt indicates she has used a walker and w/c for functional mobility. Self Care: Needed Some Help Functional Cognition: Independent DME/Equipment: Bath Chair, Shower DME/Equipment Comments walker, w/c OT Current Status Subjective Pt in bed post PT tx, agreeable to OT eval/tx at this time. She did not report any pain Mental Status/Objective Patient Orientation: Person, Confused Attachments: Barney Catheter, Oxygen (2.5L) Current Glasses/Contacts: Yes Hearing Aids: No Dentures/Partials: No Hand Dominance: Right Upper Extremity ROM RUE ~90 degrees shoulder flexion, WFL elbow/wrist/hand LUE WFL, shoulder flexion ~150 degrees Upper Extremity Coordination WLF Upper Extremity Sensation pt denies tingling/numnbess BUEs Upper Extremity Strength grossly 3+/5 MMT ADL-Treatment Eating (QC): 6 (Pt reports no difficulties eating/opening containers) Oral Hygiene (QC): 5 (This OT seen this AM acutely, pt denied completing task again. Based on clinical judgement of this morning's tx, pt requires set up assistance) Shower/Bathe Self (QC): 3 (Pt able to wash UEs, chest/abdomen, periarea, BLE thighs. Pt requires assistance BLE lower legs/feet, and buttocks.) Upper Body Dressing (QC): 4 (cues for sequecing of task and orientation of shirt) Lower Body Dressing (QC): 3 (Mod A donning underwear/pants. Pt required assistance threading RLE, she was able to thread LLE, and assistance with pant hike, SBA standing at FWW) On/Off Footwear (QC): 3 (Mod A, pt able to doff socks, requires assistance donning) Toileting Hygiene (QC): 2 (Pt requires assistance with managing pants and washing buttocks, pt able to wash periarea) Other Treatments Pt laying in bed, transferred supine to sit EOB with SBA. Seated EOB, completed sponge bath and dressing. Pt agreeable to sit in recliner for lunch, standing at FWW and transferring to recliner with CGA. Pt required moderate cues for sequencing throughout task, and pt had difficulty with word finding throughout tx. Post OT Tx, pt seated in recliner, call light in reach and all needs met. Education OT Patient Education: Correct positioning, Modified ADL techniques, Progress toward Goal/Update tx plan, Purpose of tx/functional activities, Rehab process, Safety issues, Transfer techniques Teaching Recipient: Patient Teaching Methods: Discussion Response to Teaching: Verbalize Understanding OT Assisted Goals Game Technician Goals Time Frame: Dec 06, 2019 Eating (QC): 6 Oral Hygiene (QC): 6 Toileting Hygiene (QC): 6 Shower/Bathe Self (QC): 4 Upper Body Dressing (QC): 5 Lower Body Dressing (QC): 5 On/Off Footwear (QC): 5 Additional Goals: 1-Demonstrate ADL Tasks, 2-Verbalize Understanding, 3- ImproveStrength/[place] 1=Demonstrate adherence to instructed precautions during ADL tasks. 2=Patient will verbalize/demonstrate understanding of assistive devices/modifications for ADL. 3=Patient will improve strength/tolerance for activity to enable patient to perform ADL's. OT Education/Plan Problem List/Assessment Assessment: Decreased Activ Tolerance, Decreased UE Strength, Impaired Funct Balance, Impaired I ADL's, Impaired Self-Care Skills Discharge Recommendations Plan/Recommendations: Continue POC Therapy Discharge Recommendati: Assisted Living Treatment Plan/Plan of Care Patient would benefit from OT for education, treatment and training to promote independence in ADL's, mobility, safety and/or upper extremity function for ADL's. Plan of Care: ADL Retraining, Functional Mobility, Group Exercise/Act as Ind, UE Funct Exercise/Act Treatment Duration: Dec 06, 2019 Frequency: At least 5 of 7 days/Wk (IRF) Estimated Hrs Per Day: 1.5 hours per day Agreement: Yes Rehab Potential: Fair Time/GCodes Start Time: 12:00 Stop Time: 12:30 Total Time Billed (hr/min): 30 Billed Treatment Time 1, EVM (10'), ADL (20') SHADI COHEN OT Nov 15, 2019 12:41
--- NOTE | 2019-11-15 13:31 | Physical Therapy Evaluation ---
PT Evaluation-General Medical Diagnosis Admission Date Nov 15, 2019 at 11:17 Medical Diagnosis: debility Onset Date: Nov 10, 2019 Therapy Diagnosis Therapy Diagnosis: Impaired strength, ROM, endurance, and mobility Height/Weight Height (Feet): 5 Height (Inches): 4.00 Weight (Pounds): 270 Weight (Ounces): 9.0 Precautions Precautions/Isolations: Fall Prevention, Standard Precautions Weight Bear Status Right Lower Extremity: Right Weight Bearing/Tolerated Left Lower Extremity: Left Weight Bearing/Tolerated Referral Physician: Karma Reason for Referral: Evaluation/Treatment Medical History Pertinent Medical History: Arthritis, CAD, COPD, DM, GERD, HTN, Neuropathy, Rheumatoid Arthritis Reviewed History: Yes Social History Home: Assisted Living Current Living Status: Alone Entry Into Home: Level Entry PT Steps Into Home: 0 PT Steps Inside Home: 0 Prior Prior Level of Function SCALE: Activities may be completed with or without assistive devices. 3-Jacadfgtxp-sjbhtdq completes the activity by him/herself with no assistance from a helper. 5-Set-up or Clean-up Assistance-helper sets up or cleans up; patient completes activity. [place] assists only prior to or following the activity. 4-Supervision or Touching Assistance-helper provides verbal cues and/or touching/steadying and/or contact guard assistance as patient completes activity. Assistance may be provided throughout the activity or intermittently. 3-Partial/Moderate Assistance-helper does LESS THAN HALF the effort. [place] lifts, holds or supports trunk or limbs, but provides less than half the effort. 2-Substantial/Maximal Assistance-helper does MORE THAN HALF the effort. [place] lifts or holds trunk or limbs and provides more than half the effort. 9-Lezqpqcsu-smbsvn does ALL the effort. Patient does none of the effort to complete the activity. Or, the assistance of 2 or more helpers is required for the patient to complete the activity. If activity was not attempted, code reason: 7-Patient Refused. 9-Not Applicable-not attempted and the patient did not perform the activity before the current illness, exacerbation or injury. 10-Not Attempted due to Environmental Limitations-(lack of equipment, weather restraints, etc.). 88-Not Attempted due to Medical Conditions or Safety Concerns. Bed Mobility: 6 Transfers (B,C,W/C): 6 Gait: 6 Stairs: 88 Wheelchair Mobility: 6 Indoor Mobility (Ambulation): Independent Stairs: Not [place] Prior Devices Use: Manual wheelchair, Walker PT Evaluation-Current Subjective Pt presents sitting upright in room. Pt agrees to PT. Voiced no complaints of pain. Pt/Family Goals Return home Objective Patient Orientation: Person, Confused, Place, Eyes Open, Situation Attachments: Oxygen, Barney Catheter ROM/Strength ROM Lower Extremities WFL Strength Lower Extremities 4/5 gross BLE Sensory Vision: Wears Glasses Hearing: Functional Hand Dominance: Right Transfers Roll Left to Right (QC): 4 Sit to Lying (QC): 3 Lying to Sitting/Side of Bed(Q: 3 Sit to Stand (QC): 4 Chair/Ryt-aj-Iqotb Xfer(QC): 4 Toilet Transfer (QC): 4 Car Transfer (QC): 3 Pt requires verbal cues with all activities. Patient requires mod assist with sit to supine (needs assist with both legs), min assist for supine to sit and car transfer. Gait Does the Patient Walk?: Yes Mode of Locomotion: Both Anticipated Mode of Locomotion: Both Walk 10 feet (QC): 4 Walk 50 ft with 2 Turns(QC): 88 Walk 150 ft (QC): 88 Walking 10ft/uneven surface-QC: 4 Distance: 20' Gait Assistive Device: FWW Comments/Gait Description Pt ambulates with decreased stride length. Wheelchair Training Does the Pt Use a Wheelchair?: Yes Distance: 200' Wheel 50 ft with 2 turns (QC): 1 Wheel 150 ft (QC): 1 Type of Wheelchair: Manual Stairs 1 Step (curb) (QC): 88 4 Steps (QC): 88 12 Steps (QC): 88 Balance Sitting Static: Good Sitting Dynamic: Good Standing Static: Good Standing Dynamic: Good Picking up an Object (QC): 88 Assessment/Needs Pt is limited in her mobility. Pt has fear of falling if challenged with standing activities. Pt requires verbal and visual cues to complete tasks according to instructions. Rehab Potential: Fair PT Short Term Goals Short Term Goals Time Frame: Nov 22, 2019 Roll Left & Right: 6 Sit to lyin (min assist) Lying to sitting on side of be: 4 Sit to stand: 4 Chair/tet-tn-rstfo transfer: 4 Car transfer: 4 Walk 10 feet: 4 Walk 50 feet with two turns: 4 Does pt use a wc or scooter: Yes Wheel 50ft w/2 turns: 3 Wheel 150 feet: 3 PT Senior Living Goals Game Artist Goals PT Senior Living Goals Time Frame: Dec 06, 2019 Roll Left & Right (QC): 6 Sit to Lying (QC): 6 Lying-Sitting on Side/Bed(QC): 6 Sit to Stand (QC): 6 Chair/Lip-kp-Iqkey Xfer(QC): 6 Toilet Transfer (QC): 6 Car Transfer (QC): 5 Does the Patient Walk: Yes Walk 10 feet (QC): 6 Walk 50ft with 2 Turns (QC): 6 Walk 150 ft (QC): 4 Walking 10ft on Uneven Surface: 4 1 Step (curb) (QC): 3 4 Steps (QC): 3 12 Steps (QC): 88 Picking up an Object (QC): 3 Does the Pt use WC or Scooter?: Yes Wheel 50 feet with 2 turns (QC: 6 Type: Manual Wheel 150 feet: 6 Type: Manual PT Plan Problem List Problem List: Activity Tolerance, Functional Strength, Safety, Balance, Gait, Transfer, Bed Mobility, ROM Treatment/Plan Treatment Plan: Continue Plan of Care Treatment Plan: Bed Mobility, Education, Functional Activity [place], Functional Strength, Group Therapy, Gait, Safety, Therapeutic Exercise, Transfers Treatment Duration: Dec 06, 2019 Frequency: At least 5 of 7 days/Wk (IRF) Estimated Hrs Per Day: 1.5 hours per day Patient and/or Family Agrees t: Yes Safety Risks/Education Patient Education: Gait Training, Transfer Techniques, Steps, Correct Positioning, W/C Management, Safety Issues Teaching Recipient: Patient Teaching Methods: Demonstration, Discussion Response to Teaching: Reinforcement Needed Discharge Recommendations Plan Pt will work on transfers, bed mobility, gait training, WC mobility, balance, functional strengthening and ROM. Therapy Discharge Recommendati: Home & Family Time/GCodes Time In: 1117 Time Out: 1200 Total Billed Treatment Time: 43 Total Billed Treatment 1 visit EVL 10' FA 33' SANGEETA ROMANO PT Nov 15, 2019 13:31
--- NOTE | 2019-11-15 13:34 | NUR ---
THE MED REC WAS ENTERED ON 11-13-2019 WHEN THE PT WAS ON THE 4TH FLOOR. THE MEDS HAVE BEEN REVIEWED FOR CONTINUATION
[2019-11-15] MEDS ORDERED: BUMETANIDE 1 MG (BUMEX) TAB PO PRN (13:45)
[2019-11-15] MEDS ORDERED: ENOXAPARIN 40 MG/0.4 ML (LOVENOX) SYR SC SCH (13:45)
[2019-11-15] MEDS ORDERED: RT-ALBUTEROL/IPRATROPIUM 3 ML (DUONEB) VIAL INH PRN (13:45)
--- NOTE | 2019-11-15 14:28 | Occupational Ther Daily Note ---
OT Current Status-Daily Note Subjective Pt seated in w/c after group therapy, agreeable to OT Tx at this time. Pt had difficulty word finding and required moderate cues throughout session for sequencing. Mental Status/Objective Patient Orientation: Person, Confused ADL-Treatment Therapy Code Descriptions/Definitions Functional [place] Measure: 0=Not Assessed/NA 4=Minimal Assistance 1=Total Assistance 5=Supervision or Setup 2=Maximal Assistance 6=Modified [place] 3=Moderate Assistance 7=Complete IndependenceSCALE: Activities may be completed with or without assistive devices. 5-Uggyufrkgi-pkxjsey completes the activity by him/herself with no assistance from a helper. 5-Set-up or Clean-up Assistance-helper sets up or cleans up; patient completes activity. [place] assists only prior to or following the activity. 4-Supervision or Touching Assistance-helper provides verbal cues and/or touching/steadying and/or contact guard assistance as patient completes activity. Assistance may be provided throughout the activity or intermittently. 3-Partial/Moderate Assistance-helper does LESS THAN HALF the effort. [place] lifts, holds or supports trunk or limbs, but provides less than half the effort. 2-Substantial/Maximal Assistance-helper does MORE THAN HALF the effort. [place] lifts or holds trunk or limbs and provides more than half the effort. 1-Yxpcagmoo-exxbli does ALL the effort. Patient does none of the effort to complete the activity. Or, the assistance of 2 or more helpers is required for the patient to complete the activity. If activity was not attempted, code reason: 7-Patient Refused. 9-Not Applicable-not attempted and the patient did not perform the activity before the current illness, exacerbation or injury. 10-Not Attempted due to Environmental Limitations-(lack of equipment, weather restraints, etc.). 88-Not Attempted due to Medical Conditions or Safety Concerns. Other Treatment Pt seated in w/c, taken to therapy gym. Pt talked about making ice cream and other food related items in group therapy, this OT talked to therapists that lead group, group was focused on home safety tasks and they did not talk about/make food related items in group. In order to increase BUE strength and functional endurance with tasks, pt completed x10 mins on arm bike, min resistance. Pt required frequent rest breaks and encouragement throughout task, propelled arm bike with slow movements. Pt reached 10 mins as instructed, but continued to complete exercise, requiring cues to terminate task. Pt self- propelled w/c back to room, requiring mod A to maneuver w/c. Pt transferred to w/c to bed CGA, then required assistance with BLEs into bed. Post OT tx, pt laying in bed, call light in reach and all needs met. Education OT Patient Education: Correct positioning, Exercise program, Modified ADL techniques, Progress toward Goal/Update tx plan Teaching Recipient: Patient Teaching Methods: Discussion Response to Teaching: Verbalize Understanding OT Manager Respiratory Goals Halfway Goals Time Frame: Dec 06, 2019 Eating (QC): 6 Oral Hygiene (QC): 6 Toileting Hygiene (QC): 6 Shower/Bathe Self (QC): 4 Upper Body Dressing (QC): 5 Lower Body Dressing (QC): 5 On/Off Footwear (QC): 5 Additional Goals: 1-Demonstrate ADL Tasks, 2-Verbalize Understanding, 3- ImproveStrength/[place] 1=Demonstrate adherence to instructed precautions during ADL tasks. 2=Patient will verbalize/demonstrate understanding of assistive devices/modifications for ADL. 3=Patient will improve strength/tolerance for activity to enable patient to perform ADL's. OT Education/Plan Problem List/Assessment Assessment: Decreased Activ Tolerance, Decreased UE Strength, Impaired I ADL's, Impaired Self-Care Skills Discharge Recommendations Plan/Recommendations: Continue POC Treatment Plan/Plan of Care Patient would benefit from OT for education, treatment and training to promote independence in ADL's, mobility, safety and/or upper extremity function for ADL's. Plan of Care: ADL Retraining, Functional Mobility, Group Exercise/Act as Ind, UE Funct Exercise/Act Treatment Duration: Dec 06, 2019 Frequency: At least 5 of 7 days/Wk (IRF) Estimated Hrs Per Day: 1.5 hours per day Agreement: Yes Rehab Potential: Fair Time/GCodes Start Time: 14:15 Stop Time: 14:45 Total Time Billed (hr/min): 30 Billed Treatment Time 1, EX (20'), FA (10') SHADI COHEN OT Nov 15, 2019 14:28
--- NOTE | 2019-11-15 15:03 | Therapy Group Daily Note ---
Therapy Daily Group Note Patient Education Topic Home Safety Exercises LE Seated Exercise, UE Exercise Session Ratio (pt:therapist): 4:1 Goal of Session: Education on ARU Expectations, Home Safety Strategies, UE/LE Strengthing Goal Met for this Session: Yes Pt Benefit of Group: Contributions to Others, F/U Use of Strategies @Home, Increased Functional Safety, Increased Functional Strength, Improved Cognition, Recognition of Peers, Socialization Other/Notes Pt was eating lunch upon arrival so she brought it to Group so she could participate. Pt was propelled using [facility] for OT/PT group. Group consisted of LE/UE seated exercises, ARU description/expectations, and home safety. Pt participated in introduction(name, where you are from, and random question), actively listened to peers. Engaged in seated LE/UE exercises. Pt acknowledged understanding of educational topics by giving own examples. Pt ambulated back to room. After group, pt laying in bed. Call light/phone in reach. All needs met. Start Time: 12:50 Stop Time: 14:15 Total Billed Treatment Time: 85 Total Billed Treatment 1, GRP (85m) PELON GARZON PTA Nov 15, 2019 15:03
--- NOTE | 2019-11-15 15:55 | NUR ---
DR. ADAMS NOTIFIED OF CONSULT.
[2019-11-15] MEDS ORDERED: hydrALAZINE (APRESOLINE) 25 MG TAB PO PRN (16:30)
[2019-11-15 16:42] VITALS: BP 172/81
[2019-11-15] MEDS: HYDROXYCHLOROQUINE 200 MG (PLAQUENIL) TAB PO SCH (16:49)
--- NOTE | 2019-11-15 17:00 | NUR ---
DR. ADAMS HERE TO SEE PATIENT. AIR BED OBTAINED FOR PATIENT.
[2019-11-15 17:28] VITALS: BP 186/80
--- NOTE | 2019-11-15 19:34 | Wound Care Assessment ---
Wound Care Assessment Date Seen by Provider: Nov 15, 2019 Time Seen by Provider: 16:30 Chief Complaint Bilateral buttock ulcers. HPI The patient is a 74 year old female admitted for acute kidney injury and noted to have bilateral buttock ulcers. They are irregular and appear to be primarily moisture related. She now has a collier catheter which is protecting the areas. Will order Zinc oxide cream TID and follow. Past Medical History: Admits Heart Disease (COPD, Obstructive sleep apnea, Hypertension, Rheumatoid arthritis, Immunoglobulin deficiency.) Smoking Status: Former Smoker Recreational Drug Use: No Alcohol Use: Denies Use Review of Systems Pulmonary: No Dyspnea Cardiovascular: No: Chest Pain Exam Vital Signs Date Time Temp Pulse Resp B/P (MAP) Pulse Ox O2 Delivery O2 Flow Rate FiO2 11/15/19 17:28 36.3 63 16 186/80 (115) 95 Nasal Cannula 2.50 Capillary Refill : General Appearance: no apparent distress Cardiovascular: regular rate, rhythm Respiratory: normal breath sounds Back: other (L buttock -- 3.0 x 1.5 x 0.2 cm, base 50% slough; R buttock -- 1.4 x 1.1 x 0.2 cm, base 50% slough. Not related to ischium.) Assessment/Plan/Dx 1. Bilateral buttock ulcers, primarily moisture associated skin damage. 2. UTI, with dehydration, confusion LEIGHANN. 3. Obesity, debility. Plan: ZnOxide dressings, reposition, mobilize. JORGITO ADAMS MD Nov 15, 2019 19:34
[2019-11-15] MEDS ORDERED: amLODIPine 5 MG (NORVASC) TAB PO ONE (21:00)
--- NOTE | 2019-11-15 21:00 | PM&R Post Admission Assessment ---
PM&R HP Date of Visit: Nov 15, 2019 Time of Visit: 11:30 History of Present Illness CC: Debility following extensive hospital stay HPI: This is a 74yoWF clinic patient of mine for the past 16 years who resides at [facility] who presented to the ER with AMS and abnormal UA with LEIGHANN after 2 previous ER visits after sent home on both occasions. Patient had significant encephalopathy which has now mostly cleared and she is in need of strengthening before DC to prevent readmit. She uses O2 most of the time but completely non- compliant with CPAP for severe VALDO and OHS. Patient reports her bowels are moving and abx stopped due to UCx NGTD. Patient has a h/o chronic pain. All meds have been continued. PLOF is the use of walker but mostly sedentary in her recliner. 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) Alcohol Use: Denies Use Recreational Drug Use: No Smoking Status: Former Smoker Former Smoker, Quit: Mar 25, 1994 Type Used: Cigarettes 2nd Hand Smoke Exposure: No Physical Abuse Screen: No Sexual Abuse: No Recent Foreign Travel: No Contact w/other who traveled: No Recent Hopitalizations: No Immunizations Up To Date Tetanus Booster (TDap): Unknown Pediatric: No Date of Pneumonia Vaccine: Sep 22, 2013 Date of Influenza Vaccine: Nov 22, 2017 Seasonal Allergies Seasonal Allergies: No Past Medical History Surgeries: Adenoidectomy, Appendectomy, Hysterectomy, Lumpectomy, Orthopedic, Tonsillectomy, Tubal Ligation Respiratory: COPD, Pneumonia, Sleep Apnea Currently Using CPAP: No Currently Using BIPAP: No Cardiac: Chronic Edema/Swelling, High Cholesterol, Hypertension Neurological: Dementia, Neuropathy Reproductive: No Sexually Transmitted Disease: No HIV/AIDS: No Female Reproductive Disorders: Denies Genitourinary: Renal Failure Gastrointestinal: Gastroesophageal Reflux, Gall Bladder Disease Musculoskeletal: Degenerate Disk Disease, Arthritis, Rheumatoid Arthritis, Chronic Back Pain Loss of Vision: Bilateral Hearing Impairment: Denies Cancer: Breast Did You Recieve Any Treatments: No What Type of Treatment Did You: Surgical Intervention Psychosocial: Anxiety, Depression History of Blood Disorders: Yes (IMMUNOGLOBULIN DEFICIENCY) Adverse Reaction to Blood Burrell: No Family History Cancer G8 SISTER Congestive heart failure 19 FATHER Family history: Cardiovascular disease 19 FATHER 19 MOTHER G8 BROTHER Family history: Coronary thrombosis 19 FATHER 19 MOTHER Family history: Hypertension 19 MOTHER Stroke 19 MOTHER G8 BROTHER No Pertinent Family Hx Prior Level of Function Bed Mobility: 6 Transfers: 6 Gait: 6 Stairs: 88 Wheelchair Mobility: 6 Indoor Mobility (Ambulation): Independent Stairs: Not Applicalbe Prior Devices Use: Manual wheelchair, Walker Self Care: Needed Some Help Functional Cognition: Independent 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) Current Level of Fuctioning Roll Left to Right: 4 Sit to Lyin Lying to Sitting/Side of Bed: 3 Sit to Stand: 4 Chair/Orp-qw-Iuzvh Xfer: 4 Car Transfer: 3 Does the Patient Walk: Yes Mode of Locomotion: Both Anticipated Mode of Locomotion: Both Walk 10 feet: 4 Walk 50 ft with 2 Turns: 88 Walk 150 ft: 88 Walking 10ft on uneven surface: 4 Gait Assistive Device: FWW Does the Pt Use a Wheelchair: Yes Wheelchair Distance: 200' Wheel 50 ft with 2 turns: 1 Wheel 150 ft: 1 Type of Wheelchair: Manual 1 Step (curb): 88 4 Steps: 88 12 Steps: 88 Picking up an Object: 88 Eatin (Pt reports no difficulties eating/opening containers) Oral Hygiene: 5 (This OT seen this AM acutely, pt denied completing task again. Based on clinical judgement of this morning's tx, pt requires set up assistance) Shower/Bathe Self: 3 (Pt able to wash UEs, chest/abdomen, periarea, BLE thighs. Pt requires assistance BLE lower legs/feet, and buttocks.) Upper Body Dressin (cues for sequecing of task and orientation of shirt) Lower Body Dressin (Mod A donning underwear/pants. Pt required assistance threading RLE, she was able to thread LLE, and assistance with pant hike, SBA standing at FWW) On/Off Footwear: 3 (Mod A, pt able to doff socks, requires assistance donning) Toileting Hygiene: 2 (Pt requires assistance with managing pants and washing buttocks, pt able to wash periarea) PM&R Allergy/Meds/Data Review Allergies Coded Allergies: NSAIDS (Non-Steroidal Anti-Inflamma (Unverified Allergy, Mild, 03/18/09) Influenza Virus Vaccines (Verified Allergy, Unknown, 12/07/18) Penicillins (Verified Allergy, Unknown, 01/03/06) Sulfa (Sulfonamide Antibiotics) (Verified Allergy, Unknown, 01/03/06) aspirin (Verified Allergy, Unknown, 01/03/06) atorvastatin (Verified Allergy, Unknown, 12/07/18) carbamazepine (Verified Allergy, Unknown, 09/20/06) cephalexin (Verified Allergy, Unknown, 01/03/06) iodine (Verified Allergy, Unknown, 01/03/06) latex (Unverified Allergy, Unknown, 06/21/13) meloxicam (Verified Allergy, Unknown, 12/07/18) peanut (Verified Allergy, Unknown, 12/07/18) Home Medications Scheduled Allopurinol (Allopurinol), 100 MG PO DAILY, (Reported) Ascorbate Calcium (Vitamin C), 500 MG PO DAILY, (Reported) Bumetanide (Bumetanide), 2 MG PO DAILY, (Reported) Carvedilol (Carvedilol), 12.5 MG PO BID, (Reported) Cetirizine HCl (Allergy Relief), 10 MG PO DAILY, (Reported) Cholecalciferol (Vitamin D3) (Vitamin D3), 50 MCG PO HS, (Reported) Clopidogrel Bisulfate (Plavix), 75 MG PO DAILY, (Reported) Cranberry Fruit (Cranberry), 400 MG PO BID, (Reported) Duloxetine HCl (Duloxetine HCl), 60 MG PO DAILY, (Reported) Enalapril Maleate (Enalapril Maleate), 2.5 MG PO DAILY, (Reported) Esomeprazole Magnesium (Nexium), 40 MG PO HS, (Reported) Ferrous Sulfate (Iron), 325 MG PO DAILY, (Reported) Fluticasone/Salmeterol (Advair 250-50 Diskus), 1 PUFF IH DAILY, (Reported) Gabapentin (Neurontin), 300 MG PO HS, (Reported) Hydroxychloroquine Sulfate (Hydroxychloroquine Sulfate), 200 MG PO 1200,1700, (R eported) Ipratropium/Albuterol Sulfate (Iprat-Albut 0.5-3(2.5) mg/3 ml), 3 ML NEB 0800,1600, (Reported) Montelukast Sodium (Montelukast Sodium), 10 MG PO HS, (Reported) Nitrofurantoin Macrocrystal (Macrodantin), 100 MG PO 1700, (Reported) Oxycodone HCl (Oxycodone HCl), 20 MG PO 0600,1400,2200, (Reported) Potassium Chloride (Potassium Chloride), 20 MEQ PO 1200,1700, (Reported) Simvastatin (Simvastatin), 20 MG PO HS, (Reported) Tolterodine Tartrate (Detrol LA), 4 MG PO DAILY, (Reported) Topiramate (Topiramate), 25 MG PO HS, (Reported) Scheduled PRN Bumetanide (Bumetanide), 2 MG PO DAILY PRN for WEIGHT GAIN, (Reported) Fluticasone Propionate (Fluticasone Propionate), 1 SPRAY NS DAILY PRN for ALLER GIES, (Reported) Guaifenesin/Codeine Phosphate (Guaifenesin AC Cough Syrup), 5 ML PO Q6H PRN for COUGH, (Reported) Guaifenesin/Dextromethorphan (Guaifenesin Dm Syrup), 5 ML PO Q6H PRN for COUGH, (Reported) Hydrocortisone Butyrate/Emoll (Locoid 0.1% Lipocream), 1 APPLIC TP BID PRN for RASH, (Reported) Ipratropium [place] (Ipratropium [place]), 0.2 MG NEB TID PRN for SHORTNESS OF BREATH, (Reported) Lactulose (Lactulose), 30 ML PO TID PRN for CONSTIPATION-3RD LINE, (Reported) Menthol/Lanolin/Calamine/Znox (Calmoseptine Ointment), 1 APPLIC TP UD PRN for IRRITATION, (Reported) Oxycodone HCl (Oxycodone HCl), 20 MG PO Q6H PRN for PAIN-SEVERE, (Reported) Triamcinolone Acet (Triamcinolone Acetonide 0.1% Cream), 1 APPLIC TP BID PRN for REDNESS, (Reported) Discontinued Medications Benzonatate (Tessalon Perles), 100 MG PO Q6H PRN for COUGH Discontinued Reason: No Longer Taking Cefdinir (Cefdinir), 300 MG PO BID Discontinued Reason: No Longer Taking Cholecalciferol (Vitamin D3) (Vitamin D-3), 2,000 UNIT PO HS, (Reported) Discontinued Reason: Duplicate Order Ciprofloxacin HCl (Ciprofloxacin HCl), 500 MG PO BID Discontinued Reason: No Longer Taking Hydrocortisone Butyrate (Locoid), TP BID PRN for INFLAMMATION, (Reported) Discontinued Reason: Duplicate Order Menthol/Lanolin/Calamine/Znox (Calmoseptine Ointment), 1 APPLIC TP PRN PRN for IRRITATOIN, (Reported) Discontinued Reason: Duplicate Order Montelukast Sodium (Montelukast Sodium), 10 MG PO HS Discontinued Reason: Duplicate Order Prednisone (Prednisone), 10 MG PO DAILY Discontinued Reason: No Longer Taking Prednisone (Prednisone), 40 MG PO DAILY Discontinued Reason: No Longer Taking Vitamin A & D (Vitamin A & D Ointment), TP DAILY PRN, (Reported) Discontinued Reason: No Longer Taking Current Medications Current Medications Reviewed Review of Systems Constitutional: see HPI, malaise, weakness EENTM: no symptoms reported Respiratory: dyspnea on exertion Cardiovascular: no symptoms reported Gastrointestinal: no symptoms reported Genitourinary: no symptoms reported Musculoskeletal: back pain, joint pain Skin: no symptoms reported Psychiatric/Neurological: Depressed All Other Systems Reviewed Negative Unless Noted: Yes Physical Exam Physical Exam Vital Signs Vital Signs - First Documented 11/15/19 11/15/19 11:30 17:28 Temp 36.6 Pulse 57 Resp 20 B/P (MAP) 172/81 (111) Pulse Ox 95 O2 Delivery Nasal Cannula O2 Flow Rate 2.50 Capillary Refill : Height, Weight, BMI Height: 5'4.00" Weight: 270lbs. 9.0oz. 122.751379bc; 42.96 BMI Method:Stated General Appearance: No Apparent Distress, WD/WN, Chronically ill, Obese Eyes: Bilateral Eye Normal Inspection, Bilateral Eye PERRL HEENT: PERRL/EOMI, Normal ENT Inspection, Pharynx Normal Neck: Full Range of Motion, Normal Inspection, Non Tender, Supple, Carotid Bruit Respiratory: Chest Non Tender, Lungs Clear, Normal Breath Sounds, No Accessory Muscle Use, No Respiratory Distress Cardiovascular: Regular Rate, Rhythm, No Edema, No Gallop, No JVD, No Murmur, Normal Peripheral Pulses Gastrointestinal: Normal Bowel Sounds, No Organomegaly, No Pulsatile Mass, Non Tender, Soft Back: Normal Inspection, No CVA Tenderness, No Vertebral Tenderness Extremity: Normal Capillary Refill, Normal Inspection, Normal Range of Motion, Non Tender, No Calf Tenderness, No Pedal Edema Neurologic/Psychiatric: Alert, Oriented x3, No Motor/Sensory Deficits (generalized weakness), Normal 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, 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, Abnormal Gait, Disoriented (subtle) Skin: Normal Color, Warm/Dry Lymphatic: No Adenopathy PM&R Medical Assessment & Plan REHAB/MEDICAL ASSESSMENT AND PLAN: REHAB IMPAIRMENT GROUP: Debility ETIOLOGIC DIAGNOSIS: Debility The comorbidities that impact the patients function and/or functional outcome by: morbid obesity, encephalopathy, CRI, non-compliance with CPAP, OHS REHAB PLAN: The patient is being admitted to our comprehensive inpatient rehabilitation facility and can tolerate the intensity of service consisting of at least: 180 minutes of therapy a day, 5 out of 7 days a week Rehab treatment will consist of: PT OT will focus on regaining strength and function and enable patient to regain independence in order to return to AL and ST will help clear cognition The patient/family has a good understanding of our discharge process and will benefit from an interdisciplinary inpatient rehabilitation program. The patient has potential to make improvement and is in need of at least two of the following multidisciplinary therapies including but not limited to physical, occupational, speech, and prosthetics and orthotics. Additionally the patient will need services from respiratory, nutritional services, wound care, psychology, etc. (Customize this to each patient). Given the patients complex condition and risk of further medical complications, rehabilitation services cannot be safely or effectively provided at a lower level of care such as a [facility] facility. BARRIERS TO DISCHARGE: Severe OHS non-compliant with CPAP ESTIMATED LOS: 7 days DISPOSITION: AL home RELEVANT CHANGES SINCE PREADMISSION SCREENING: I have compared the patients medical and functional status at the time of the preadmission screening and there are: no changes PROGNOSIS: Fair REHABILITATION GOALS: 1. PT OT will focus on regaining strength and function and enable patient to regain independence in order to return to AL and ST will help clear cognition All the above goals were reviewed with the patient and he/she is in agreement. By signing this document, I acknowledge that I have personally performed a full physical examination on this patient within 24 hours of admission to this inpatient rehabilitation facility and have determined the patient to be able to tolerate the above course of treatment at an intensive level for a reasonable period of time. I will be completing a detailed individualized Plan of Care for this patient by day #4 of the patients stay based upon the Preadmission Screen, the Post-Admission Evaluation, and the therapy evaluations. Admission Dx/Comorbidities: (1) Debility ICD Codes: R53.81 - Other malaise (2) Obesity hypoventilation syndrome Status: Chronic ICD Codes: E66.2 - Morbid (severe) obesity with alveolar hypoventilation (3) Non-insulin dependent type 2 diabetes mellitus ICD Codes: E11.9 - Type 2 diabetes mellitus without complications (4) Altered mental status Status: Resolved ICD Codes: R41.82 - Altered mental status, unspecified (5) Renal insufficiency Status: Chronic ICD Codes: N28.9 - Disorder of kidney and ureter, unspecified (6) Lymphedema Status: Chronic ICD Codes: I89.0 - Lymphedema, not elsewhere classified (7) LEIGHANN (acute kidney injury) Status: Resolved ICD Codes: N17.9 - Acute kidney failure, unspecified (8) COPD exacerbation Status: Resolved ICD Codes: J44.1 - Chronic obstructive pulmonary disease with (acute) exacerbation (9) CHF (congestive heart failure) Status: Chronic ICD Codes: I50.9 - Heart failure, unspecified (10) Essential (primary) hypertension Status: Chronic ICD Codes: I10 - Essential (primary) hypertension (11) Hypoxia Status: Acute ICD Codes: R09.02 - Hypoxemia (12) Posterior reversible encephalopathy syndrome (PRES) Status: Chronic ICD Codes: I67.83 - Posterior reversible encephalopathy syndrome Assessment/Plan Assessment and Plan Assess & Plan/Chief Complaint Assessment: Debility Encephalopathy OHS Non-compliance with CPAP Obesity HTN DM Lymphedema Breast cancer hx CRI Hypoxia Plan: Home meds IRF protocol Fall risk O2 BP management SIENNA MADERA DO Nov 15, 2019 20:59
[2019-11-15] MEDS: ENOXAPARIN 40 MG/0.4 ML (LOVENOX) SYR SC SCH (22:12)
[2019-11-15] MEDS: SENNA W/DOCUSATE (SENOKOT S) TABLET PO SCH (22:13)
[2019-11-15] MEDS: toPIRamate 25 MG (TOPAMAX) TAB PO SCH (22:13)
[2019-11-15] MEDS: GABAPENTIN 300 MG (NEURONTIN) CAP PO SCH (22:13)
[2019-11-15] MEDS: ZINC OXIDE 20% OINT 30 GM TUBE TOP SCH (22:13)
[2019-11-15] MEDS: MONTELUKAST 10 MG (SINGULAIR) TAB PO SCH (22:13)
[2019-11-15] MEDS: CARVEDILOL 12.5 MG (COREG) TABLET PO SCH (22:13)
[2019-11-15] MEDS: SIMvastatin 20 MG (ZOCOR) TAB PO SCH (22:14)
[2019-11-15] MEDS: DOCUSATE SODIUM 100 MG (COLACE) CAP PO SCH (22:14)
[2019-11-15] MEDS: polyethylene glycoL POWDER 17 GM (MIRALAX) PACK PO SCH (22:15)
--- NOTE | 2019-11-16 05:29 | Individualized Plan of Care ---
Individualized Plan of Care Rehab Nursing IPOC Order Admission Date Nov 15, 2019 at 11:17 Current Orders Orders Admission Order(Inpt,Obs,Sdc) (11/15/19 10:42) Vital Signs: Per Unit Policy ( 08,16,00 (11/15/19 10:42) Visitor Services Information Assistant-Inpt Rehab Con (11/15/19 10:42) Rehab Nursing Orders-Ipoc (11/15/19 10:42) Physical Therapy Rehab Orders (11/15/19 10:42) Occupational Therapy Rehab Ord (11/15/19 10:42) Speech Therapy Rehab Orders (11/15/19 10:42) Cbc With Automated Diff (11/16/19 06:00) Comprehensive Metabolic Panel (11/16/19 06:00) Intake & Output 06,14,22 (11/15/19 10:42) Precautions (Aru) (11/15/19 10:42) Rehab-Intensity Of Therapy (11/15/19 10:42) Initiate Admission Nursing Pro .admission (11/15/19 10:42) Acetaminophen Tablet (Tylenol Tablet) (11/15/19 10:45) Alprazolam Tablet (Xanax Tablet) (11/15/19 10:45) Calcium Carbonate Chew Tablet (Antacid C (11/15/19 10:45) Diphenhydramine Tablet (Benadryl Tablet) (11/15/19 10:45) Docusate Sodium Capsule (Colace Capsule) (11/15/19 21:00) Docusate Sodium Capsule (Colace Capsule) (11/15/19 10:45) Bisacodyl Suppository (Dulcolax Supposit (11/15/19 10:45) Lactulose Oral Solution (Enulose Oral So (11/15/19 10:45) Na Phos/Na Biphos Enema (Fleet Enema Colt (11/15/19 10:45) Guaifenesin/Codeine Syrup (Robitussin Ac (11/15/19 10:45) Loperamide Tablet (Imodium Tablet) (11/15/19 10:45) Enoxaparin Injection (Lovenox Injection) (11/15/19 21:00) Melatonin Tablet (Melatonin Tablet) (11/15/19 10:45) Polyethylene Glycol Powder Pkt (Miralax (11/15/19 21:00) Ondansetron Oral Dissolve Tab (Zofran (11/15/19 10:45) Senna S Tablet (Senokot S Tablet) (11/15/19 21:00) Initiate Admission Nursing Pro .admission (11/15/19 10:42) Nursing Communication (Order) (11/15/19 10:42) Transfer - Bed/Room/Location (11/15/19 12:11) Sodium 2g (2000 Mg) (11/15/19 Lunch) Ambulate 08,12, (11/15/19 13:41) Sequential Compression Device Q4H (11/15/19 13:41) Dvt/Vte Risk - Notifiy Physici Q4H (11/15/19 13:41) Code/Resuscitation (11/15/19 13:44) Allopurinol Tablet (Zyloprim Tablet) (11/16/19 09:00) Bumetanide Tablet (Bumex Tablet) (11/15/19 13:45) Carvedilol Tablet (Coreg Tablet) (11/15/19 21:00) Clopidogrel Tablet (Plavix Tablet) (11/16/19 09:00) Duloxetine Capsule (Cymbalta Capsule) (11/16/19 09:00) Enalapril Tablet (Vasotec Tablet) (11/16/19 09:00) Enoxaparin Injection (Lovenox Injection) (11/15/19 13:45) Fluticasone/Salmeterol 115/21 (Advair Hf (11/16/19 09:00) Gabapentin Capsule/Tablet (Neurontin Cap (11/15/19 21:00) Hydroxychloroquine Sulfate (Plaquenil) (11/15/19 17:00) Montelukast Tablet (Singulair Tablet) (11/15/19 21:00) Pantoprazole Tablet (Protonix Tablet) (11/16/19 09:00) Simvastatin Tablet (Zocor Tablet) (11/15/19 21:00) Tolterodine La Capsule (Detrol La Capsul (11/16/19 09:00) Topiramate Tablet (Topamax Tablet) (11/15/19 21:00) Oxycodone Immediate Rel Tablet (Oxyir Ta (11/15/19 13:45) Prednisone Tablet (Deltasone Tablet) (11/16/19 07:00) Consult Wound Care Physician (11/15/19 13:44) Mat Initiate Protocol (11/15/19 13:44) Svn Small Volume Nebulizer (11/15/19 13:44) Albuterol/Ipra Inhalation Soln (Duoneb I (11/15/19 13:45) Prednisone Tablet (Deltasone Tablet) (11/16/19 07:00) Patient Visit (11/15/19 ) Therapeutic, Group (11/15/19 ) Patient Visit (11/15/19 ) Pt Eval Low Complexity (11/15/19 ) Functional Activities, Ea 15 (11/15/19 ) Hydralazine Tablet (Apresoline Tablet) (11/15/19 16:30) Dressing Order (Intervention) TID (11/15/19 18:11) Zinc Oxide 20% Ointment (Zinc Oxide 20% (11/15/19 21:00) Nursing Communication (Order) Q2HR (11/15/19 19:46) Amlodipine Tablet (Norvasc Tablet) (11/15/19 21:00) Amlodipine Tablet (Norvasc Tablet) (11/16/19 09:00) Catheter(Urinary) Discontinue (11/16/19 10:33) Incentive Spirometry (Nursing) Q2H (11/16/19 10:33) Patient Visit (11/16/19 ) Speech Sound Lang Comp (11/16/19 ) Treat. Speech/Lang/Voice (11/16/19 ) Patient Visit (11/16/19 ) Functional Activities, Ea 15 (11/16/19 ) Gait Training, Ea 15 Min (11/16/19 ) Exercise Therap, Ea 15 Min (11/16/19 ) Patient Visit (11/16/19 ) Exercise Therap, Ea 15 Min (11/16/19 ) Miconazole 2% Powder (Desenex Af 2% Powd (11/16/19 21:00) Rehab Nursing Orders: Ongoing Assess. of Cognitive Status, Ongoing Assess. of Function Status, Bladder Management, Bladder Scan, Bladder Training, Bowel Management, Bowel Training, Disease Management & Educaiton, DVT Prophylaxis, Fall Prevention, Fluid/Electrolyte/Nutrition Mgmt, Infection Prevention, Medication Management & Education, Management of Risks & Complications, Management of Skin Intergrity, Nutrition Management, Pain Management, Patient/Family Support, Safety Management Intensity of Therapy to be met Patient to be seen: Min.3h per day/5 of 7d PT IPOC Problem List: Activity Tolerance, Functional Strength, Safety, Balance, Gait, Transfer, Bed Mobility, ROM Treatment Plan: Continue Plan of Care Bed Mobility, Education, Functional Activity [place], Functional Strength, Group Therapy, Gait, Safety, Therapeutic Exercise, Transfers Treatment Duration: Dec 06, 2019 Frequency: At least 5 of 7 days/Wk (IRF) Estimated Hrs Per Day: 1.5 hours per day OT IPOC Problems: Decreased Activ Tolerance, Decreased UE Strength, Impaired I ADL's, Impaired Self-Care Skills OT Treatment, Training and Edu: Yes Plan of Care: ADL Retraining, Functional Mobility, Group Exercise/Act as Ind, UE Funct Exercise/Act Treatment Duration: Dec 06, 2019 Frequency: At least 5 of 7 days/Wk (IRF) Estimated Hrs Per Day: 1.[address] IPOC Speech Therapy Treatment Plan: Modify Plan, See Comments Treatment Duration: Nov 16, 2019 Frequency: Modified Program (IRF) Estimated Hrs Per Day: Other Visitor Services Information Assistant/Case Mgmt Visitor Services Information Assistant/Case Managemen: Discharge Planning Dietitian/Vise Hand Dietitian/Vise Hand to monitor nutritional status and make changes and/or recommendations as needed and work with speech pathology on dietary upgrades as the occur. Physician IPOC Medical Issues being managed closely and that require the 24 hour availability of a physician: Recent AMS with ARF and abnormal UA will require close monitoring for decompensation especially OHS non-compliant with anything other than O2 Medical Issues: Bowel/Bladder Function, DVT Prophylaxis, Falls Precautions, Fluid/Electrolyte/Nutrition Balance, Infection Protection, Pain Management Brief Synthesis of Preadmission Screen, Post-Admission Evaluation, and Therapy Evaluations: PT OT will focus on regaining strength and mobility along with energy conservation in order to return back to baseline and AL Medical Prognosis: Fair Anticipated Length of Stay: 7 days SIENNA MADERA DO Nov 16, 2019 05:29
--- NOTE | 2019-11-16 05:29 | PM&R Progress Note ---
Subjective HPI/CC On Admission Date Seen by Provider: Nov 16, 2019 Time Seen by Provider: 10:00 Subjective/Events-last exam Very poor short-term memory Creatinine 1.38 BP is okay Really wants to go home, I told her we will get her back to assisted living early next week Dr. Hugo is seeing her for wound care Wraps for her legs will be obtained from her son Prednisone tapered down Conferred with RN Reviewed therapy notes Checked meds and labs Review of Systems General: Fatigue, Malaise Neurological: Confusion Objective Exam Vital Signs Vital Signs Date Time Temp Pulse Resp B/P (MAP) Pulse Ox O2 Delivery O2 Flow Rate FiO2 11/16/19 21:00 Nasal Cannula 2.50 11/16/19 17:19 35.2 62 18 162/70 (100) 100 Capillary Refill : Less Than 3 Seconds General Appearance: No Apparent Distress, WD/WN, Chronically ill, Obese HEENT: PERRL/EOMI, Normal ENT Inspection, Pharynx Normal Neck: Full Range of Motion, Normal Inspection, Non Tender, Supple, Carotid Bruit Respiratory: Chest Non Tender, Lungs Clear, Normal Breath Sounds, No Accessory Muscle Use, No Respiratory Distress Cardiovascular: Regular Rate, Rhythm, No Edema, No Gallop, No JVD, No Murmur, Normal Peripheral Pulses Gastrointestinal: Normal Bowel Sounds, No Organomegaly, No Pulsatile Mass, Non Tender, Soft Back: Normal Inspection, No CVA Tenderness, No Vertebral Tenderness Extremity: Normal Capillary Refill, Normal Inspection, Normal Range of Motion, Non Tender, No Calf Tenderness, No Pedal Edema Neurologic/Psychiatric: Alert, Oriented x3, No Motor/Sensory Deficits (generalized weakness), Normal Mood/Affect, billiard player II-XII Norm as Tested, Abnormal Gait, Disoriented (subtle) Skin: Normal Color, Warm/Dry Lymphatic: No Adenopathy Results/Procedures Lab Laboratory Tests 11/16/19 05:30 Patient resulted labs reviewed. FIM Transfers Therapy Code Descriptions/Definitions Functional [place] Measure: 0=Not Assessed/NA 4=Minimal Assistance 1=Total Assistance 5=Supervision or Setup 2=Maximal Assistance 6=Modified [place] 3=Moderate Assistance 7=Complete IndependenceSCALE: Activities may be completed with or without assistive devices. 9-Rfwyekqilm-vchebkz completes the activity by him/herself with no assistance from a helper. 5-Set-up or Clean-up Assistance-helper sets up or cleans up; patient completes activity. [place] assists only prior to or following the activity. 4-Supervision or Touching Assistance-helper provides verbal cues and/or touching/steadying and/or contact guard assistance as patient completes activity. Assistance may be provided throughout the activity or intermittently. 3-Partial/Moderate Assistance-helper does LESS THAN HALF the effort. [place] lifts, holds or supports trunk or limbs, but provides less than half the effort. 2-Substantial/Maximal Assistance-helper does MORE THAN HALF the effort. [place] lifts or holds trunk or limbs and provides more than half the effort. 5-Qdekrlcki-deooqb does ALL the effort. Patient does none of the effort to complete the activity. Or, the assistance of 2 or more helpers is required for the patient to complete the activity. If activity was not attempted, code reason: 7-Patient Refused. 9-Not Applicable-not attempted and the patient did not perform the activity before the current illness, exacerbation or injury. 10-Not Attempted due to Environmental Limitations-(lack of equipment, weather restraints, etc.). 88-Not Attempted due to Medical Conditions or Safety Concerns. Roll Left to Right (QC): 4 Sit to Lying (QC): 3 Sit to Stand (QC): 4 Chair/Gwr-cu-Dpwgm Xfer(QC): 4 Car Transfer (QC): 3 Gait Training Does the Patient Walk?: Yes Walk 10 feet (QC): 4 Walk 50 ft with 2 Turns(QC): 88 Walk 150 ft (QC): 88 Walking 10ft/uneven surface-QC: 4 Gait Assistive Device: FWW Wheelchair Training Does the Pt Use a Wheelchair?: Yes Distance: 200' Wheel 50 ft with 2 turns (QC): 1 Wheel 150 ft (QC): 1 Type of Wheelchair: Manual Stair Training 1 Step (curb) (QC): 88 4 Steps (QC): 88 12 Steps (QC): 88 Balance Picking up an Object (QC): 88 ADL-Treatment Eating (QC): 6 (Pt reports no difficulties eating/opening containers) Oral Hygiene (QC): 5 (This OT seen this AM acutely, pt denied completing task again. Based on clinical judgement of this morning's tx, pt requires set up assistance) Shower/Bathe Self (QC): 3 (Pt able to wash UEs, chest/abdomen, periarea, BLE thighs. Pt requires assistance BLE lower legs/feet, and buttocks.) Upper Body Dressing (QC): 4 (cues for sequecing of task and orientation of shirt) Lower Body Dressing (QC): 3 (Mod A donning underwear/pants. Pt required assistance threading RLE, she was able to thread LLE, and assistance with pant hike, SBA standing at FWW) On/Off Footwear (QC): 3 (Mod A, pt able to doff socks, requires assistance donning) Toileting Hygiene (QC): 2 (Pt requires assistance with managing pants and washing buttocks, pt able to wash periarea) Assessment/Plan Assessment and Plan Assess & Plan/Chief Complaint Assessment: Debility Encephalopathy OHS Non-compliance with CPAP Obesity HTN DM Lymphedema Breast cancer hx CRI Hypoxia Plan: Home meds IRF protocol Fall risk O2 BP management 11/16/19: Taper steroids Monitor pain Home meds BP management DC catheter (1) Debility (2) Obesity hypoventilation syndrome Status: Chronic (3) Non-insulin dependent type 2 diabetes mellitus (4) Altered mental status Status: Resolved Resolution Date/Time: 02/21/18 @ 13:32 (5) Renal insufficiency Status: Chronic (6) Lymphedema Status: Chronic (7) LEIGHANN (acute kidney injury) Status: Resolved Resolution Date/Time: 02/20/18 @ 18:58 (8) COPD exacerbation Status: Resolved (9) CHF (congestive heart failure) Status: Chronic (10) Essential (primary) hypertension Status: Chronic (11) Hypoxia Status: Acute (12) Posterior reversible encephalopathy syndrome (PRES) Status: Chronic SIENNA MADERA DO Nov 16, 2019 05:29
[2019-11-16 05:33] LABS: BASOPHILS % (AUTO) 0 % (0-10); MEAN CORPUSCULAR HEMOGLOBIN 32 pg (25-34)
[2019-11-16 05:34] LABS: EOSINOPHILS % (AUTO) 0 % (0-10); HEMATOCRIT 37 % (35-52); HEMOGLOBIN 12.7 g/dL (11.5-16.0); LYMPHOCYTES # (AUTO) 1.2 10^3/uL (1.0-4.0); LYMPHOCYTES % (AUTO) 15 % (12-44); MEAN CORPUSCULAR HGB CONC 34 g/dL (32-36); MEAN CORPUSCULAR VOLUME 92 fL (80-99); MEAN PLATELET VOLUME 10.9 fL (9.0-12.2); MONOCYTES # (AUTO) 0.8 10^3/uL (0.0-1.0); MONOCYTES % (AUTO) 10 % (0-12); NEUTROPHILS % (AUTO) 74 % (42-75); PLATELET COUNT 144 10^3/uL (130-400); WHITE BLOOD COUNT 8.2 10^3/uL (4.3-11.0)
[2019-11-16 05:46] LABS: ALBUMIN 2.8 GM/DL (3.2-4.5)
[2019-11-16 05:47] LABS: POTASSIUM 3.6 MMOL/L (3.6-5.0)
[2019-11-16 05:48] LABS: CALCIUM 8.4 MG/DL (8.5-10.1)
[2019-11-16 05:49] LABS: TOTAL PROTEIN 4.5 GM/DL (6.4-8.2)
[2019-11-16 05:51] LABS: BILIRUBIN,TOTAL 0.8 MG/DL (0.1-1.0)
[2019-11-16 05:53] LABS: CREATININE SERUM 1.39 MG/DL (0.60-1.30)
[2019-11-16 05:58] VITALS: BP 138/63
[2019-11-16] MEDS: predniSONE 20 MG TAB PO SCH (06:33)
[2019-11-16] MEDS ORDERED: predniSONE 20 MG TAB PO SCH (07:00)
[2019-11-16] MEDS: ADVAIR HFA 115/21 MCG INHALER 8 GM IH SCH (07:29)
[2019-11-16] MEDS: DOCUSATE SODIUM 100 MG (COLACE) CAP PO SCH ×2 (09:06→20:47)
[2019-11-16] MEDS: PANTOPRAZOLE 40 MG (PROTONIX) TAB PO SCH (09:06)
[2019-11-16] MEDS: SENNA W/DOCUSATE (SENOKOT S) TABLET PO SCH ×2 (09:06→20:48)
[2019-11-16] MEDS: ALLOPURINOL 100 MG (ZYLOPRIM) TAB PO SCH (09:06)
[2019-11-16] MEDS: DULoxetine 30 MG (CYMBALTA) CAP PO SCH (09:06)
[2019-11-16] MEDS: amLODIPine 5 MG (NORVASC) TAB PO SCH (09:06)
[2019-11-16] MEDS: CARVEDILOL 12.5 MG (COREG) TABLET PO SCH ×2 (09:06→20:47)
[2019-11-16] MEDS: CLOPIDOGREL 75 MG (PLAVIX) TABLET PO SCH (09:06)
[2019-11-16] MEDS: ENALAPRIL 2.5 MG (VASOTEC) TAB PO SCH (09:06)
[2019-11-16] MEDS: TOLTERODINE LA 4 MG (DETROL) CAP PO SCH (09:07)
[2019-11-16] MEDS: ENOXAPARIN 40 MG/0.4 ML (LOVENOX) SYR SC SCH ×2 (09:07→20:48)
[2019-11-16] MEDS: ZINC OXIDE 20% OINT 30 GM TUBE TOP SCH ×3 (09:07→20:49)
[2019-11-16] MEDS: polyethylene glycoL POWDER 17 GM (MIRALAX) PACK PO SCH ×2 (09:25→21:01)
--- NOTE | 2019-11-16 09:56 | Physical Therapy Daily Note ---
PT Daily Note-Current Subjective Pt. presents sitting upright in recliner with nurse administering medications. Pt agrees to PT. Pt reports no pain but is very cold. Appearance At the conclusion of PT tx patient returns to recliner where she has access to tray, call button, and all needs met. Mental Status Patient Orientation: Person, Confused, Place, Eyes Open, M[place] Attachments: Oxygen, [place] Catheter Transfers SCALE: Activities may be completed with or without assistive devices. 1-Bhjemjdfid-xrcmxjn completes the activity by him/herself with no assistance from a helper. 5-Set-up or Clean-up Assistance-helper sets up or cleans up; patient completes activity. [place] assists only prior to or following the activity. 4-Supervision or Touching Assistance-helper provides verbal cues and/or touching/steadying and/or contact guard assistance as patient completes ac tivity. Assistance may be provided throughout the activity or intermittently. 3-Partial/Moderate Assistance-helper does LESS THAN HALF the effort. [place] lifts, holds or supports trunk or limbs, but provides less than half the effort. 2-Substantial/Maximal Assistance-helper does MORE THAN HALF the effort. [place] lifts or holds trunk or limbs and provides more than half the effort. 0-Hayvqcoee-yoyzzl does ALL the effort. Patient does none of the effort to complete the activity. Or, the assistance of 2 or more helpers is required for the patient to complete the activity. If activity was not attempted, code reason: 7-Patient Refused. 9-Not Applicable-not attempted and the patient did not perform the activity before the current illness, exacerbation or injury. 10-Not Attempted due to Environmental Limitations-(lack of equipment, weather restraints, etc.). 88-Not Attempted due to Medical Conditions or Safety Concerns. Sit to Stand (QC): 4 Chair/Jth-hl-Fgerz Xfer(QC): 4 Toilet Transfer (QC): 4 Patient needed to use the restroom, ambulated to restroom, patient didn't have a BM and did not need to wipe. Weight Bearing Right Lower Extremity: Right Weight Bearing/Tolerated Left Lower Extremity: Left Weight Bearing/Tolerated Gait Training Does the Patient Walk?: Yes Distance: 20'x2 Walk 10 feet (QC): 4 Gait Assistive Device: FWW Pt had a slumped posture with ambulation; at times she leaned over and balanced her forearm arm on walker. Exercises Seated Therapy Exercises: Ankle pumps, Long arc quads, Hip flexion, Hip abd/add Seated Reps: 20 Treatments LE strengthening and gait training Assessment Current Status: Poor Progress Pt lacks motivation to thrive in therapy. Pt receives cues to complete transfers safely. PT Short Term Goals Short Term Goals Time Frame: Nov 22, 2019 Roll Left & Right: 6 Sit to lyin (min assist) Lying to sitting on side of be: 4 Sit to stand: 4 Chair/dus-ar-gwcoi transfer: 4 Car transfer: 4 Walk 10 feet: 4 Walk 50 feet with two turns: 4 Does pt use a wc or scooter: Yes Wheel 50ft w/2 turns: 3 Wheel 150 feet: 3 PT Internet Marketing Intern Goals Halfway Goals PT Internet Marketing Intern Goals Time Frame: Dec 06, 2019 Roll Left & Right (QC): 6 Sit to Lying (QC): 6 Lying-Sitting on Side/Bed(QC): 6 Sit to Stand (QC): 6 Chair/Pxt-ns-Pxpar Xfer(QC): 6 Toilet Transfer (QC): 6 Car Transfer (QC): 5 Does the Patient Walk: Yes Walk 10 feet (QC): 6 Walk 50ft with 2 Turns (QC): 6 Walk 150 ft (QC): 4 Walking 10ft on Uneven Surface: 4 1 Step (curb) (QC): 3 4 Steps (QC): 3 12 Steps (QC): 88 Picking up an Object (QC): 3 Does the Pt use WC or Scooter?: Yes Wheel 50 feet with 2 turns (QC: 6 Type: Manual Wheel 150 feet: 6 Type: Manual PT Plan Problem List Problem List: Activity Tolerance, Functional Strength, Safety, Balance, Gait, Transfer, Bed Mobility, ROM Treatment/Plan Treatment Plan: Continue Plan of Care Treatment Plan: Bed Mobility, Education, Functional Activity [place], Functional Strength, Group Therapy, Gait, Safety, Therapeutic Exercise, Transfers Treatment Duration: Dec 06, 2019 Frequency: At least 5 of 7 days/Wk (IRF) Estimated Hrs Per Day: 1.5 hours per day Patient and/or Family Agrees t: Yes Safety Risks/Education Patient Education: Gait Training, Transfer Techniques, Correct Positioning, Safety Issues Teaching Recipient: Patient Teaching Methods: Demonstration, Discussion Response to Teaching: Reinforcement Needed Time/GCodes Time In: 0900 Time Out: 1000 Total Billed Treatment Time: 60 Total Billed Treatment 1 visit FA 30' GT 15' EX 15' SANGEETA ROMANO PT Nov 16, 2019 09:56
--- NOTE | 2019-11-16 10:33 | ST Cognitive Linguistic Eval ---
Speech Evaluation-General Medical Diagnosis debility Onset Date: Nov 10, 2019 Therapy Diagnosis Therapy Diagnosis: Cognitive-communication Referral Referring Physician: Dr. Parada Medical History Pertinent Medical History: Arthritis, CAD, COPD, DM, GERD, HTN, Neuropathy, Rheumatoid Arthritis Reviewed History: Yes Social History Current Living Status: Alone Speech PLF-Current Status Prior Level of Function Patient lived in [facility] where she is assisted with her daily needs PRN. Subjective Patient was cooperative with the cognitive assessment. Language Eval: Auditory Comprehends Simple Yes/No Ques: Functional Indent/Objects [place]: Functional Ident/Pics in [place]: Functional Follows 1-Step Commands: Mild Follows Complex Directions: Moderate Follows General Conversations: Mild Language Eval: Verbal Language Completes Spontaneous Greeting: Functional Produces Auto, Serial Info: Functional Imitates Simple Words/Phrases: Mild Word Finding: Moderate Requests Basic Needs: Mild States Basic Personal Info: Mild Expresses Complex Ideas: Moderate Objective Cognitive Domain Attention: Mild Memory: Moderate Problem Solving: Moderate Executive Functions: Moderate Visuospatial Skills: Mild Composite Severity Rating: Moderate Clock Drawing Severity Rating: Moderate Objective Formal/Standardized Tests [facility] Mental Status ([facility]) Results 16/30, Moderate Dementia range of function Oral Motor/Speech Production Within Normal Limits Impression The patient is a 74 y/o female who was admitted to the ARU due to debility and a decline in function. The patient was given the [facility] with 16/30 score obtained. The patient's score is within the moderate dementia range of function. The patient will receive skilled ST services with focus on improving safety awareness and communication of wants/needs. Speech Patient Assess Expression of Ideas/Wants: Frequently (2) Understanding Verbal Content: Sometimes Understands(2) Brief Interview-Mental Status: Yes Repetition of Three Words: Two (2) Temporal Orientation: Year: Correct (3) Temporal Orientation: Month: Accurate within 5 days(2) Temporal Orientation: Day: Correct (1) Recall : Wear to say "Sock": No, could not recall (0) Recall : Color: Yes, after cueing (1) Recall : Bed: No, could not recall (0) Memory/Recall Ability: Current season, That he or she is in a hsp/hsp unit Speech Short Term Goals Short Term Goals Short Term Goals 1) The patient will complete memory tasks related to her daily needs at 80% or greater with minimal cues. 2) The patient will complete safety awareness tasks related to her daily needs at 80% or greater with minimal cues. 3) The patient will complete problem solving tasks related to her daily needs at 80% or greater with minimal cues. 4) The patient will complete word finding tasks related to her daily needs at 80% or greater with minimal cues. Speech Care Home Goals Care Home Goals Patient will improve cognitive-communication necessary for safety and daily living tasks with minimal assist. Speech-Plan Patient/Family Goals Patient/Family Goals: The patient plans on returning to her [facility] apartment upon discharge. Treatment Plan Speech Therapy Treatment Plan: Continue Plan of Care Treatment Duration: Nov 29, 2019 Frequency: 4 times per week (Patient will receive skilled ST services 4-5x per week) Estimated Hrs Per Day: .5 hour per day Rehab Potential: Fair Barriers to Learning: Patient's cognitive deficits Pt/Family Agrees to Plan: Yes Safety Risks/Education Teaching Recipient: Patient Teaching Methods: Discussion Response to Teaching: Verbalize Understanding Education Topics Provided: Safety within her room Time Speech Therapy Time In: 08:30 Speech Therapy Time Out: 09:00 Total Billed Time: 30 Billed Treatment Time 1, HECTOR BAKER [facility] ST Nov 16, 2019 10:33
--- NOTE | 2019-11-16 10:39 | NUR ---
Phone message left for patient's son to bring Lymphedema wraps and comfortable clothing for patient. Follow up from call made by another nurse on 11/15/2019.
--- NOTE | 2019-11-16 11:47 | Occupational Ther Daily Note ---
OT Current Status-Daily Note Subjective Pt seated in recliner, agreeable to OT tx. Pt had difficulty with word finding and required moderate cues throughout session for sequencing of tasks Mental Status/Objective Patient Orientation: Person, Confused, Place, Time, Situation ADL-Treatment Therapy Code Descriptions/Definitions Functional [place] Measure: 0=Not Assessed/NA 4=Minimal Assistance 1=Total Assistance 5=Supervision or Setup 2=Maximal Assistance 6=Modified [place] 3=Moderate Assistance 7=Complete IndependenceSCALE: Activities may be completed with or without assistive devices. 8-Lfveaitvff-nrptduh completes the activity by him/herself with no assistance from a helper. 5-Set-up or Clean-up Assistance-helper sets up or cleans up; patient completes activity. [place] assists only prior to or following the activity. 4-Supervision or Touching Assistance-helper provides verbal cues and/or touching/steadying and/or contact guard assistance as patient completes activity. Assistance may be provided throughout the activity or intermittently. 3-Partial/Moderate Assistance-helper does LESS THAN HALF the effort. [place] lifts, holds or supports trunk or limbs, but provides less than half the effort. 2-Substantial/Maximal Assistance-helper does MORE THAN HALF the effort. [place] lifts or holds trunk or limbs and provides more than half the effort. 7-Osivduuuq-tmaqtp does ALL the effort. Patient does none of the effort to complete the activity. Or, the assistance of 2 or more helpers is required for the patient to complete the activity. If activity was not attempted, code reason: 7-Patient Refused. 9-Not Applicable-not attempted and the patient did not perform the activity before the current illness, exacerbation or injury. 10-Not Attempted due to Environmental Limitations-(lack of equipment, weather restraints, etc.). 88-Not Attempted due to Medical Conditions or Safety Concerns. Eating (QC): 6 Shower/Bathe Self (QC): 4 Upper Body Dressing (QC): 4 Lower Body Dressing (QC): 4 On/Off Footwear: 3 Other Treatment Pt seated in recliner, agreeable to OT tx with focus on ADLs. Pt eating fruit cup, without difficulty. Pt then able to brush hair after set up. Pt completed sponge bath and dressing at recliner, requiring moderate cues for sequencing of tasks, asking "what am I doing next?". Pt able to complete sponge bath with SBA standing at FWW. Pt handed pt tshirt inside out, pt able to problem solve to turn tshirt to the correct side, then put on with slight difficulty, but pt able to don it herself. OT assisted pt with managing oxygen line. Pt then donned brief and pants, required cues for sequencing throughout task, and assistance managing catheter tubing and O2 line. Pt managed pants up with SBA at FWW. Nurse present, asking if pt can return to bed post tx in order to remove catheter. Pt able to stand at recliner, doff pants with SBA. OT assisted with managing around catheter/IV lines. Pt then transferred to bed using FWW with SBA. Pt sat EOB, then transferred supine with SBA, cues for positioning of body in bed. Post OT tx, pt laying in bed, call light in reach and all needs met. Education OT Patient Education: Correct positioning, Modified ADL techniques, Progress toward Goal/Update tx plan, Purpose of tx/functional activities, Transfer techniques Teaching Recipient: Patient Teaching Methods: Discussion Response to Teaching: Verbalize Understanding OT Ncqa Specialist Goals Halfway Goals Time Frame: Dec 06, 2019 Eating (QC): 6 Oral Hygiene (QC): 6 Toileting Hygiene (QC): 6 Shower/Bathe Self (QC): 4 Upper Body Dressing (QC): 5 Lower Body Dressing (QC): 5 On/Off Footwear (QC): 5 Additional Goals: 1-Demonstrate ADL Tasks, 2-Verbalize Understanding, 3- ImproveStrength/[place] 1=Demonstrate adherence to instructed precautions during ADL tasks. 2=Patient will verbalize/demonstrate understanding of assistive devices/modifications for ADL. 3=Patient will improve strength/tolerance for activity to enable patient to perform ADL's. OT Education/Plan Problem List/Assessment Assessment: Decreased Activ Tolerance, Decreased UE Strength, Impaired I ADL's, Impaired Self-Care Skills Discharge Recommendations Plan/Recommendations: Continue POC Treatment Plan/Plan of Care Patient would benefit from OT for education, treatment and training to promote independence in ADL's, mobility, safety and/or upper extremity function for ADL's. Plan of Care: ADL Retraining, Functional Mobility, Group Exercise/Act as Ind, UE Funct Exercise/Act Treatment Duration: Dec 06, 2019 Frequency: At least 5 of 7 days/Wk (IRF) Estimated Hrs Per Day: 1.5 hours per day Agreement: Yes Rehab Potential: Fair Time/GCodes Start Time: 10:00 Stop Time: 11:15 Total Time Billed (hr/min): 75 Billed Treatment Time 1, ADL 5 SHADI COHEN OT Nov 16, 2019 11:47
[2019-11-16] MEDS: HYDROXYCHLOROQUINE 200 MG (PLAQUENIL) TAB PO SCH ×2 (13:02→17:25)
--- NOTE | 2019-11-16 13:56 | Physical Therapy Daily Note ---
PT Daily Note-Current Subjective Pt presents upright in recliner in room. Pt reports no pain. Pt agrees to PT. Appearance Pt remains in recliner as conclusion of PT. Pt has access to tray, call button, and all needs have been met. Mental Status Patient Orientation: Person, Place, Time, Eyes Open Attachments: Oxygen Transfers SCALE: Activities may be completed with or without assistive devices. 7-Owgzteizrj-wzrqsfa completes the activity by him/herself with no assistance from a helper. 5-Set-up or Clean-up Assistance-helper sets up or cleans up; patient completes activity. [place] assists only prior to or following the activity. 4-Supervision or Touching Assistance-helper provides verbal cues and/or touching/steadying and/or contact guard assistance as patient completes activity. Assistance may be provided throughout the activity or intermittently. 3-Partial/Moderate Assistance-helper does LESS THAN HALF the effort. [place] lifts, holds or supports trunk or limbs, but provides less than half the effort. 2-Substantial/Maximal Assistance-helper does MORE THAN HALF the effort. [place] lifts or holds trunk or limbs and provides more than half the effort. 6-Tscwahwnj-iwyycy does ALL the effort. Patient does none of the effort to complete the activity. Or, the assistance of 2 or more helpers is required for the patient to complete the activity. If activity was not attempted, code reason: 7-Patient Refused. 9-Not Applicable-not attempted and the patient did not perform the activity befo re the current illness, exacerbation or injury. 10-Not Attempted due to Environmental Limitations-(lack of equipment, weather re straints, etc.). 88-Not Attempted due to Medical Conditions or Safety Concerns. Weight Bearing Right Lower Extremity: Right Weight Bearing/Tolerated Left Lower Extremity: Left Weight Bearing/Tolerated Exercises Seated Therapy Exercises: Ankle pumps, Long arc quads, Hip flexion, Hip abd/add, Glut set Seated Reps: 20 Treatments LE Strengthening Assessment Current Status: Fair Progress Pt improving with the LE seated exercises; pt is able to stay focused to complete therapy. PT Short Term Goals Short Term Goals Time Frame: Nov 22, 2019 Roll Left & Right: 6 Sit to lyin (min assist) Lying to sitting on side of be: 4 Sit to stand: 4 Chair/rkd-db-dtwjs transfer: 4 Car transfer: 4 Walk 10 feet: 4 Walk 50 feet with two turns: 4 Does pt use a wc or scooter: Yes Wheel 50ft w/2 turns: 3 Wheel 150 feet: 3 PT Halfway Goals Halfway Goals PT Rail Director Goals Time Frame: Dec 06, 2019 Roll Left & Right (QC): 6 Sit to Lying (QC): 6 Lying-Sitting on Side/Bed(QC): 6 Sit to Stand (QC): 6 Chair/Qne-ol-Wgtkq Xfer(QC): 6 Toilet Transfer (QC): 6 Car Transfer (QC): 5 Does the Patient Walk: Yes Walk 10 feet (QC): 6 Walk 50ft with 2 Turns (QC): 6 Walk 150 ft (QC): 4 Walking 10ft on Uneven Surface: 4 1 Step (curb) (QC): 3 4 Steps (QC): 3 12 Steps (QC): 88 Picking up an Object (QC): 3 Does the Pt use WC or Scooter?: Yes Wheel 50 feet with 2 turns (QC: 6 Type: Manual Wheel 150 feet: 6 Type: Manual PT Plan Problem List Problem List: Activity Tolerance, Functional Strength, Safety, Balance, Gait, Transfer, Bed Mobility, ROM Treatment/Plan Treatment Plan: Continue Plan of Care Treatment Plan: Bed Mobility, Education, Functional Activity [place], Functional Strength, Group Therapy, Gait, Safety, Therapeutic Exercise, Transfers Treatment Duration: Dec 06, 2019 Frequency: At least 5 of 7 days/Wk (IRF) Estimated Hrs Per Day: 1.5 hours per day Patient and/or Family Agrees t: Yes Safety Risks/Education Patient Education: Correct Positioning, Safety Issues Teaching Recipient: Patient Teaching Methods: Demonstration, Discussion Response to Teaching: Reinforcement Needed Time/GCodes Time In: 1335 Time Out: 1350 Total Billed Treatment Time: 15 Total Billed Treatment 1 visit EX 15SANGEETA REA PT Nov 16, 2019 13:56
--- NOTE | 2019-11-16 15:32 | NUR ---
CM/SS ADMISSION Patient admitted to ARU from [facility] 11/15/19 for debility. Additional diagnoses are, in part, NIDDM2, morbid obesity with alveolar hypoventilation, renal insufficiency, lymphedema, COPD, CHF, HTN, hypoxemia, encephalopathy. Patient has resided at [facility] since May of 2014 and will return there upon discharge. She self reports that she uses a FWW and wheelchair for her ambulation. EMR history reflects patient is non compliant to use of CPAP, and that she is on O2 either continuously or a majority of the time. PCP: Dr. Clare Parada DO [place] [facility]: [facility] INSURANCE: Medicare, [employer] supplement DME: FWW, wheelchair, CPAP, O2. Assisted Living staff would monitor patient assistive device needs for safety concerns. ARU therapy team to assess for new assistive device needs relative to home performance and safety. BARRIERS TO DISCHARGE: Medical stability and return to level of functioning appropriate to assisted living environment. Per EMR, it appears difficult to reach the only contact persons listed, virginia Sutton and SARAH Lezama. CONTACTS: Virginia [phone] SARAH [phone] [place] [id number] Patient understood the purpose and process for weekly patient care conference and that her first review will be 11/22/19.
--- NOTE | 2019-11-16 15:48 | Wound Care Assessment ---
Wound Care Assessment Date Seen by Provider: Nov 16, 2019 Time Seen by Provider: 11:00 Chief Complaint Bilateral buttock ulcers. HPI The patient is a 74 year old female admitted for acute kidney injury and noted to have bilateral buttock ulcers. They are irregular and appear to be primarily moisture related. She now has a collier catheter which is protecting the areas. Will order Zinc oxide cream TID and follow. 11/16/19 Interval Note: The bilateral MASD buttock injuries are much improved with topical ZnO. She is urged to lie on her side as much as possible to allow the area to air dry. She is to have Collier cath out today. Past Medical History: Admits Heart Disease (COPD, Obstructive sleep apnea, Hypertension, Rheumatoid arthritis, Immunoglobulin deficiency.) Smoking Status: Former Smoker Recreational Drug Use: No Alcohol Use: Denies Use Review of Systems Pulmonary: No Dyspnea Cardiovascular: No: Chest Pain Exam Vital Signs Date Time Temp Pulse Resp B/P (MAP) Pulse Ox O2 Delivery O2 Flow Rate FiO2 11/16/19 14:24 Nasal Cannula 3.00 11/16/19 07:29 95 11/16/19 05:58 36.2 65 16 138/63 (88) Capillary Refill : Less Than 3 Seconds General Appearance: no apparent distress Cardiovascular: regular rate, rhythm Respiratory: normal breath sounds Skin: other (Bilateral buttock wounds much improved) Results Laboratory Tests 11/16/19 05:30: White Blood Count 8.2, Red Blood Count 4.01, Hemoglobin 12.7, Hematocrit 37, Mean Corpuscular Volume 92, Mean Corpuscular Hemoglobin 32, Mean Corpuscular Hemoglobin Concent 34, Red Cell Distribution Width 12.4, Platelet Count 144, Mean Platelet Volume 10.9, Immature Granulocyte % (Auto) 1, Neutrophils (%) (Auto) 74, Lymphocytes (%) (Auto) 15, Monocytes (%) (Auto) 10, Eosinophils (%) (Auto) 0, Basophils (%) (Auto) 0, Neutrophils # (Auto) 6.0, Lymphocytes # (Auto) 1.2, Monocytes # (Auto) 0.8, Eosinophils # (Auto) 0.0, Basophils # (Auto) 0.0, Immature Granulocyte # (Auto) 0.1, Sodium Level 138, Potassium Level 3.6, Chloride Level 105, Carbon Dioxide Level 27, Anion Gap 6, Blood Urea Nitrogen 31H, Creatinine 1.39H, Estimat Glomerular Filtration Rate 37, BUN/Creatinine Ratio 22, Glucose Level 80, Calcium Level 8.4L, Corrected Calcium 9.4, Total Bilirubin 0.8, Aspartate Amino Transf (AST/SGOT) 22, Alanine Aminotransferase (ALT/SGPT) 19, Alkaline Phosphatase 39L, Total Protein 4.5L, Albumin 2.8L Assessment/Plan/Dx 1. Bilateral buttock ulcers, primarily moisture associated skin damage, much improved with ZnO treatment. 2. UTI, with dehydration, confusion LEIGHANN. 3. Obesity, debility. Plan: ZnOxide dressings, reposition, mobilize. JORGITO ADAMS MD Nov 16, 2019 15:48
[2019-11-16 17:19] VITALS: BP 162/70
[2019-11-16] MEDS: toPIRamate 25 MG (TOPAMAX) TAB PO SCH (20:47)
[2019-11-16] MEDS: SIMvastatin 20 MG (ZOCOR) TAB PO SCH (20:47)
[2019-11-16] MEDS: GABAPENTIN 300 MG (NEURONTIN) CAP PO SCH (20:47)
[2019-11-16] MEDS: MONTELUKAST 10 MG (SINGULAIR) TAB PO SCH (20:47)
[2019-11-16] MEDS: MICONAZOLE 2% POWDER (DESENEX AF) 90 GM TOP SCH (20:48)
[2019-11-17 05:20] VITALS: BP 141/60
[2019-11-17] MEDS: predniSONE 20 MG TAB PO SCH (06:17)
[2019-11-17] MEDS: ADVAIR HFA 115/21 MCG INHALER 8 GM IH SCH (07:16)
[2019-11-17] MEDS: SENNA W/DOCUSATE (SENOKOT S) TABLET PO SCH ×2 (08:47→21:20)
[2019-11-17] MEDS: ZINC OXIDE 20% OINT 30 GM TUBE TOP SCH ×3 (08:47→21:22)
[2019-11-17] MEDS: DULoxetine 30 MG (CYMBALTA) CAP PO SCH (08:47)
[2019-11-17] MEDS: MICONAZOLE 2% POWDER (DESENEX AF) 90 GM TOP SCH ×2 (08:47→21:22)
[2019-11-17] MEDS: PANTOPRAZOLE 40 MG (PROTONIX) TAB PO SCH (08:47)
[2019-11-17] MEDS: ENOXAPARIN 40 MG/0.4 ML (LOVENOX) SYR SC SCH ×2 (08:47→21:19)
[2019-11-17] MEDS: ENALAPRIL 2.5 MG (VASOTEC) TAB PO SCH (08:47)
[2019-11-17] MEDS: CLOPIDOGREL 75 MG (PLAVIX) TABLET PO SCH (08:48)
[2019-11-17] MEDS: amLODIPine 5 MG (NORVASC) TAB PO SCH (08:48)
[2019-11-17] MEDS: polyethylene glycoL POWDER 17 GM (MIRALAX) PACK PO SCH ×2 (08:48→21:17)
[2019-11-17] MEDS: CARVEDILOL 12.5 MG (COREG) TABLET PO SCH ×2 (08:48→21:16)
[2019-11-17] MEDS: ALLOPURINOL 100 MG (ZYLOPRIM) TAB PO SCH (08:48)
[2019-11-17] MEDS: DOCUSATE SODIUM 100 MG (COLACE) CAP PO SCH ×2 (08:48→21:16)
[2019-11-17] MEDS: TOLTERODINE LA 4 MG (DETROL) CAP PO SCH (08:48)
--- NOTE | 2019-11-17 09:48 | Occupational Ther Daily Note ---
OT Current Status-Daily Note Subjective Pt seated in recliner sleeping, easily awoken. Pt agreeable to OT tx with focus on ADLs. Mental Status/Objective Patient Orientation: Confused ADL-Treatment Therapy Code Descriptions/Definitions Functional [place] Measure: 0=Not Assessed/NA 4=Minimal Assistance 1=Total Assistance 5=Supervision or Setup 2=Maximal Assistance 6=Modified [place] 3=Moderate Assistance 7=Complete IndependenceSCALE: Activities may be completed with or without assistive devices. 0-Txvludcwsi-ebyhorb completes the activity by him/herself with no assistance fr om a helper. 5-Set-up or Clean-up Assistance-helper sets up or cleans up; patient completes activity. [place] assists only prior to or following the activity. 4-Supervision or Touching Assistance-helper provides verbal cues and/or touching/steadying and/or contact guard assistance as patient completes activity. Assistance may be provided throughout the activity or intermittently. 3-Partial/Moderate Assistance-helper does LESS THAN HALF the effort. [place] lifts, holds or supports trunk or limbs, but provides less than half the effort. 2-Substantial/Maximal Assistance-helper does MORE THAN HALF the effort. [place] lifts or holds trunk or limbs and provides more than half the effort. 9-Cueiwlttz-rnfesr does ALL the effort. Patient does none of the effort to complete the activity. Or, the assistance of 2 or more helpers is required for the patient to complete the activity. If activity was not attempted, code reason: 7-Patient Refused. 9-Not Applicable-not attempted and the patient did not perform the activity before the current illness, exacerbation or injury. 10-Not Attempted due to Environmental Limitations-(lack of equipment, weather restraints, etc.). 88-Not Attempted due to Medical Conditions or Safety Concerns. Shower/Bathe Self (QC): 3 (Pt completed shower seated on SC, Assistance washing back, buttocks, and under abdominal pannus) Upper Body Dressing (QC): 4 (SBA, cues and assistance managing oxygen tubing) Toileting Hygiene (QC): 4 (SBA) Toilet Transfer (QC): 3 (CGA onto toilet, Min A off using GBS.) Pt required increased time with all ADLs and max verbal cues for sequencing of tasks. Other Treatment Pt seated in recliner, agreeable to OT tx. Pt ambulated into restroom using FWW, CGA. Pt completed toileting, then transferred onto SC. Pt doffed clothes, then completed showering and dressing. Pt's nurse present to apply medicine under abdominal pannus, then OT assisted pt with donning lower body clothing due to time constraint. Pt used FWW to return to recliner where nurse provided pt meds as OT cleaned up from ADL session. Pt required max verbal cues for sequencing throughout session, and increased time with all tasks. Post OT tx, pt seated in recliner, call light in reach and all needs met, nurse present. Education OT Patient Education: Correct positioning, Energy conservation, Modified ADL techniques, Progress toward Goal/Update tx plan, Purpose of tx/functional activities, Safety issues Teaching Recipient: Patient Teaching Methods: Discussion Response to Teaching: Verbalize Understanding, Reinforcement Needed OT Neonatal Surgeon Goals [place] Goals Time Frame: Dec 06, 2019 Eating (QC): 6 Oral Hygiene (QC): 6 Toileting Hygiene (QC): 6 Shower/Bathe Self (QC): 4 Upper Body Dressing (QC): 5 Lower Body Dressing (QC): 5 On/Off Footwear (QC): 5 Additional Goals: 1-Demonstrate ADL Tasks, 2-Verbalize Understanding, 3-ImproveStrength/[place] 1=Demonstrate adherence to instructed precautions during ADL tasks. 2=Patient will verbalize/demonstrate understanding of assistive devices/modifications for ADL. 3=Patient will improve strength/tolerance for activity to enable patient to perform ADL's. OT Education/Plan Problem List/Assessment Assessment: Decreased Activ Tolerance, Decreased UE Strength, Impaired Cognition, Impaired I ADL's, Impaired Self-Care Skills Discharge Recommendations Plan/Recommendations: Continue POC Treatment Plan/Plan of Care Patient would benefit from OT for education, treatment and training to promote independence in ADL's, mobility, safety and/or upper extremity function for ADL's. Plan of Care: ADL Retraining, Functional Mobility, Group Exercise/Act as Ind, UE Funct Exercise/Act Treatment Duration: Dec 06, 2019 Frequency: At least 5 of 7 days/Wk (IRF) Estimated Hrs Per Day: 1.5 hours per day Agreement: Yes Rehab Potential: Fair Time/GCodes Start Time: 08:00 Stop Time: 09:00 Total Time Billed (hr/min): 60 Billed Treatment Time 1, ADL 4 CRUMPACKER,SHADI OT Nov 17, 2019 09:48
--- NOTE | 2019-11-17 09:58 | PM&R Progress Note ---
Subjective HPI/CC On Admission Date Seen by Provider: Nov 17, 2019 Time Seen by Provider: 10:00 Subjective/Events-last exam 11/17/19: Improved status Less confusion Powder in her abdominal folds ordered by Dr Hugo. Lymphedema wraps placed by OT lymphedema specialists today Very poor short-term memory Creatinine 1.38 BP is okay Really wants to go home, I told her we will get her back to assisted living early next week Dr. Hugo is seeing her for wound care Wraps for her legs will be obtained from her son Prednisone tapered down Conferred with RN Reviewed therapy notes Checked meds and labs Review of Systems General: Fatigue, Malaise Neurological: Weakness, Confusion Objective Exam Vital Signs Vital Signs Date Time Temp Pulse Resp B/P (MAP) Pulse Ox O2 Delivery O2 Flow Rate FiO2 11/18/19 01:49 95 Nasal Cannula 3.00 11/17/19 21:14 60 18 149/68 (95) 11/17/19 16:04 36.8 Capillary Refill : Less Than 3 Seconds General Appearance: No Apparent Distress, WD/WN, Chronically ill, Obese HEENT: PERRL/EOMI, Normal ENT Inspection, Pharynx Normal Neck: Full Range of Motion, Normal Inspection, Non Tender, Supple, Carotid Bruit Respiratory: Chest Non Tender, Lungs Clear, Normal Breath Sounds, No Accessory Muscle Use, No Respiratory Distress Cardiovascular: Regular Rate, Rhythm, No Edema, No Gallop, No JVD, No Murmur, Normal Peripheral Pulses Gastrointestinal: Normal Bowel Sounds, No Organomegaly, No Pulsatile Mass, Non Tender, Soft Back: Normal Inspection, No CVA Tenderness, No Vertebral Tenderness Extremity: Normal Capillary Refill, Normal Inspection, Normal Range of Motion, Non Tender, No Calf Tenderness, No Pedal Edema Neurologic/Psychiatric: Alert, Oriented x3, No Motor/Sensory Deficits (generalized weakness), Normal Mood/Affect, electronic gluer II-XII Norm as Tested, Abnormal Gait, Disoriented (subtle) Skin: Normal Color, Warm/Dry Lymphatic: No Adenopathy Results/Procedures Lab Patient resulted labs reviewed. FIM Transfers Therapy Code Descriptions/Definitions Functional [place] Measure: 0=Not Assessed/NA 4=Minimal Assistance 1=Total Assistance 5=Supervision or Setup 2=Maximal Assistance 6=Modified [place] 3=Moderate Assistance 7=Complete IndependenceSCALE: Activities may be completed with or without assistive devices. 0-Lxtguqwrir-podxbth completes the activity by him/herself with no assistance from a helper. 5-Set-up or Clean-up Assistance-helper sets up or cleans up; patient completes activity. [place] assists only prior to or following the activity. 4-Supervision or Touching Assistance-helper provides verbal cues and/or manjit yajaira/steadying and/or contact guard assistance as patient completes activity. Assistance may be provided throughout the activity or intermittently. 3-Partial/Moderate Assistance-helper does LESS THAN HALF the effort. [place] lifts, holds or supports trunk or limbs, but provides less than half the effort. 2-Substantial/Maximal Assistance-helper does MORE THAN HALF the effort. [place] lifts or holds trunk or limbs and provides more than half the effort. 1-Davqbmusb-ecbxvp does ALL the effort. Patient does none of the effort to complete the activity. Or, the assistance of 2 or more helpers is required for the patient to complete the activity. If activity was not attempted, code reason: 7-Patient Refused. 9-Not Applicable-not attempted and the patient did not perform the activity before the current illness, exacerbation or injury. 10-Not Attempted due to Environmental Limitations-(lack of equipment, weather restraints, etc.). 88-Not Attempted due to Medical Conditions or Safety Concerns. Roll Left to Right (QC): 4 Sit to Lying (QC): 3 Sit to Stand (QC): 4 Chair/Ebh-qb-Ysujq Xfer(QC): 4 Car Transfer (QC): 3 Gait Training Does the Patient Walk?: Yes Distance: 20'x2 Walk 10 feet (QC): 4 Walk 50 ft with 2 Turns(QC): 88 Walk 150 ft (QC): 88 Walking 10ft/uneven surface-QC: 4 Gait Assistive Device: FWW Wheelchair Training Does the Pt Use a Wheelchair?: Yes Distance: 200' Wheel 50 ft with 2 turns (QC): 1 Wheel 150 ft (QC): 1 Type of Wheelchair: Manual Stair Training 1 Step (curb) (QC): 88 4 Steps (QC): 88 12 Steps (QC): 88 Balance Picking up an Object (QC): 88 ADL-Treatment Eating (QC): 6 Oral Hygiene (QC): 5 (This OT seen this AM acutely, pt denied completing task again. Based on clinical judgement of this morning's tx, pt requires set up assistance) Shower/Bathe Self (QC): 3 (Pt completed shower seated on SC, Assistance washing back, buttocks, and under abdominal pannus) Upper Body Dressing (QC): 4 (SBA, cues and assistance managing oxygen tubing) Lower Body Dressing (QC): 4 On/Off Footwear (QC): 3 Toileting Hygiene (QC): 4 (SBA) Toilet Transfer (QC): 3 (CGA onto toilet, Min A off using GBS.) Assessment/Plan Assessment and Plan Assess & Plan/Chief Complaint Assessment: Debility Encephalopathy OHS Non-compliance with CPAP Obesity HTN DM Lymphedema Breast cancer hx CRI Hypoxia Plan: Home meds IRF protocol Fall risk O2 BP management 11/16/19: Taper steroids Monitor pain Home meds BP management DC catheter 11/17/19: Lympedema wraps in place now Monitor BP Monitor labs (1) Debility (2) Obesity hypoventilation syndrome Status: Chronic (3) Non-insulin dependent type 2 diabetes mellitus (4) Altered mental status Status: Resolved Resolution Date/Time: 02/21/18 @ 13:32 (5) Renal insufficiency Status: Chronic (6) Lymphedema Status: Chronic (7) LEIGHANN (acute kidney injury) Status: Resolved Resolution Date/Time: 02/20/18 @ 18:58 (8) COPD exacerbation Status: Resolved (9) CHF (congestive heart failure) Status: Chronic (10) Essential (primary) hypertension Status: Chronic (11) Hypoxia Status: Acute (12) Posterior reversible encephalopathy syndrome (PRES) Status: Chronic SIENNA MADERA DO Nov 17, 2019 09:57
--- NOTE | 2019-11-17 10:02 | Physical Therapy Daily Note ---
PT Daily Note-Current Subjective Pt. agrees to Rx, states she is not in any pain. Pt states she for many yrs has loved in assisted living and sleeps in an electric recliner and uses her w/c to get to and from meals, and sometimes uses w/c in room. Pt. states she is currently stronger than she has been in yrs. "this w/c isnt as easy to wheel as my own at home" Pain Location: No Pain Reported Appearance this ELEVATOR REPAIRER HELPER observed bilat LEs and feet, no open areas but reddened and flaky below knees, min edema Mental Status Patient Orientation: Person, Place, Time Attachments: Oxygen (3L), Other-See Comments (mask out of room) Transfers SCALE: Activities may be completed with or without assistive devices. 7-Neceztuzxs-hqjyqfx completes the activity by him/herself with no assistance from a helper. 5-Set-up or Clean-up Assistance-helper sets up or cleans up; patient completes activity. [place] assists only prior to or following the activity. 4-Supervision or Touching Assistance-helper provides verbal cues and/or touching/steadying and/or contact guard assistance as patient completes activity. Assistance may be provided throughout the activity or intermittently. 3-Partial/Moderate Assistance-helper does LESS THAN HALF the effort. [place] lifts, holds or supports trunk or limbs, but provides less than half the effort. 2-Substantial/Maximal Assistance-helper does MORE THAN HALF the effort. [place] lifts or holds trunk or limbs and provides more than half the effort. 2-Budhmxxmb-amcevp does ALL the effort. Patient does none of the effort to complete the activity. Or, the assistance of 2 or more helpers is required for the patient to complete the activity. If activity was not attempted, code reason: 7-Patient Refused. 9-Not Applicable-not attempted and the patient did not perform the activity before the current illness, exacerbation or injury. 10-Not Attempted due to Environmental Limitations-(lack of equipment, weather restraints, etc.). 88-Not Attempted due to Medical Conditions or Safety Concerns. Roll Left & Right (QC): 6 Sit to Lying (QC): 5 Lying to Sitting/Side of Bed(Q: 5 Sit to Stand (QC): 6 Chair/Sof-yl-Uyfks Xfer(QC): 6 pt. needed min instruction for safe sit to sup and sup to sit Weight Bearing Right Lower Extremity: Right Weight Bearing/Tolerated Left Lower Extremity: Left Weight Bearing/Tolerated Gait Training Does the Patient Walk?: Yes Walk 10 feet (QC): 5 Gait Persons Needed: 1 Gait Assistive Device: FWW 25ftx2, 35ft, 50ft, CGA, assisted for portable O2 at 3L. pt. is flexed over FWW no LOB, no c/o SOB Wheelchair Training Does the Pt Use a Wheelchair?: Yes Wheel 50 ft with 2 turns (QC): 5 Type of Wheelchair: Manual needed instruction for brakes. Exercises Supine Ex: Bridging, Ankle pumps, Rolling, Heel Slides, Short Arc Quads, Straight leg raise, Hip abd/add Supine Reps: 15 unable to clear bed with bridges Assessment Current Status: Good Progress self limiting, has not attempted apparently to get stronger for many yrs, doesnt have bed [facility] her [facility] at [facility], just lift recline chair PT Short Term Goals Short Term Goals Time Frame: Nov 22, 2019 Roll Left & Right: 6 Sit to lyin (min assist) Lying to sitting on side of be: 4 Sit to stand: 4 Chair/qwg-ea-xfmlg transfer: 4 Car transfer: 4 Walk 10 feet: 4 Walk 50 feet with two turns: 4 Does pt use a wc or scooter: Yes Wheel 50ft w/2 turns: 3 Wheel 150 feet: 3 PT Senior Care Goals Senior Care Goals PT Museum Tour Guide Goals Time Frame: Dec 06, 2019 Roll Left & Right (QC): 6 Sit to Lying (QC): 6 Lying-Sitting on Side/Bed(QC): 6 Sit to Stand (QC): 6 Chair/Fpp-wl-Lsmzt Xfer(QC): 6 Toilet Transfer (QC): 6 Car Transfer (QC): 5 Does the Patient Walk: Yes Walk 10 feet (QC): 6 Walk 50ft with 2 Turns (QC): 6 Walk 150 ft (QC): 4 Walking 10ft on Uneven Surface: 4 1 Step (curb) (QC): 3 4 Steps (QC): 3 12 Steps (QC): 88 Picking up an Object (QC): 3 Does the Pt use WC or Scooter?: Yes Wheel 50 feet with 2 turns (QC: 6 Type: Manual Wheel 150 feet: 6 Type: Manual PT Plan Treatment/Plan Treatment Plan: Continue Plan of Care Treatment Plan: Bed Mobility, Education, Functional Activity [place], Functional Strength, Group Therapy, Gait, Safety, Therapeutic Exercise, Transfers Treatment Duration: Dec 06, 2019 Frequency: At least 5 of 7 days/Wk (IRF) Estimated Hrs Per Day: 1.5 hours per day Patient and/or Family Agrees t: Yes Safety Risks/Education Patient Education: Gait Training, Transfer Techniques, Correct Positioning, W/C Management, Disease Process, Safety Issues Teaching Recipient: Patient, Primary Caregiver Teaching Methods: Discussion Response to Teaching: Verbalize Understanding, Return Demonstration, Reinforcement Needed Time/GCodes Time In: 900 Time Out: 1000 Total Billed Treatment Time: 60 Total Billed Treatment 1,EX20m,WC10m,FA15m,GT15m RIA [place] ELEVATOR REPAIRER HELPER Nov 17, 2019 10:02
--- NOTE | 2019-11-17 10:15 | NUR ---
Dr. Best here to assess patient's right cast with noted drainage. Dr. Best removed cast, cleansed incisions and applied a new cast. Patient tolerated procedure well.
--- NOTE | 2019-11-17 10:43 | Occupational Ther Daily Note ---
OT Current Status-Daily Note Subjective Pt seen in recliner with LE's elevated. OT to address LE ADLs with assist with wrapping BLEs with Sigvaris wraps. Pt agrees to this tx. ADL-Treatment Therapy Code Descriptions/Definitions Functional [place] Measure: 0=Not Assessed/NA 4=Minimal Assistance 1=Total Assistance 5=Supervision or Setup 2=Maximal Assistance 6=Modified [place] 3=Moderate Assistance 7=Complete IndependenceSCALE: Activities may be completed with or without assistive devices. 0-Jgffgnkddd-sxiiokh completes the activity by him/herself with no assistance from a helper. 5-Set-up or Clean-up Assistance-helper sets up or cleans up; patient completes activity. [place] assists only prior to or following the activity. 4-Supervision or Touching Assistance-helper provides verbal cues and/or touching/steadying and/or contact guard assistance as patient completes activity. Assistance may be provided throughout the activity or intermittently. 3-Partial/Moderate Assistance-helper does LESS THAN HALF the effort. [place] lifts, holds or supports trunk or limbs, but provides less than half the effort. 2-Substantial/Maximal Assistance-helper does MORE THAN HALF the effort. [place] lifts or holds trunk or limbs and provides more than half the effort. 9-Awknlfmxb-rlsyta does ALL the effort. Patient does none of the effort to complete the activity. Or, the assistance of 2 or more helpers is required for the patient to complete the activity. If activity was not attempted, code reason: 7-Patient Refused. 9-Not Applicable-not attempted and the patient did not perform the activity before the current illness, exacerbation or injury. 10-Not Attempted due to Environmental Limitations-(lack of equipment, weather restraints, etc.). 88-Not Attempted due to Medical Conditions or Safety Concerns. Lower Body Dressing (QC): 1 On/Off Footwear: 2 Other Treatment Pt seen in recliner. Pt has redness on lateral/ anterior portion of BLE. Pt educated on use of lotions/ creams for skin care, donned bilaterally. Pt's skin non-pitting edema bilaterally. Pt's socks and Sigvaris velcro garments donned bilaterally with emphasis of increased pressure distally to increase edema flow proximally; pt educated on donning daily to decrease wound/ infection risk. Pt states she needs to order new garments. Pt educated on different velcro garment options based on concern of amaya. Pt left in recliner with LEs elevated and all needs met, call light in reach. Education OT Patient Education: Purpose of tx/functional activities, Safety issues Teaching Recipient: Patient Teaching Methods: Demonstration, Discussion Response to Teaching: Verbalize Understanding OT Retirement Goals Forging Machine Hand Goals Time Frame: Dec 06, 2019 Eating (QC): 6 Oral Hygiene (QC): 6 Toileting Hygiene (QC): 6 Shower/Bathe Self (QC): 4 Upper Body Dressing (QC): 5 Lower Body Dressing (QC): 5 On/Off Footwear (QC): 5 Additional Goals: 1-Demonstrate ADL Tasks, 2-Verbalize Understanding, 3- ImproveStrength/[place] 1=Demonstrate adherence to instructed precautions during ADL tasks. 2=Patient will verbalize/demonstrate understanding of assistive devices/modifications for ADL. 3=Patient will improve strength/tolerance for activity to enable patient to perform ADL's. OT Education/Plan Problem List/Assessment Assessment: Decreased Activ Tolerance, Decreased UE Strength, Edema, Impaired I ADL's, Impaired Self-Care Skills Discharge Recommendations Plan/Recommendations: Continue POC Therapy Discharge Recommendati: 24 Hour Supervision Treatment Plan/Plan of Care Treatment,Training & Education: Yes Patient would benefit from OT for education, treatment and training to promote independence in ADL's, mobility, safety and/or upper extremity function for ADL's. Plan of Care: ADL Retraining, Functional Mobility, Group Exercise/Act as Ind, UE Funct Exercise/Act Treatment Duration: Dec 06, 2019 Frequency: At least 5 of 7 days/Wk (IRF) Estimated Hrs Per Day: 1.5 hours per day Agreement: Yes Rehab Potential: Fair Time/GCodes Start Time: 10:00 Stop Time: 10:15 Total Time Billed (hr/min): 15 Billed Treatment Time 1, ADL= 15 AMAYA SILVEIRA OTR Nov 17, 2019 10:43
[2019-11-17] MEDS: HYDROXYCHLOROQUINE 200 MG (PLAQUENIL) TAB PO SCH ×2 (13:21→16:25)
--- NOTE | 2019-11-17 13:41 | Speech Therapy Daily Note ---
Speech Daily Progress Note Subjective Date Seen by Provider: Nov 17, 2019 Time Seen by Provider: 00:30 Patient sitting in recliner watching game show on television when I entered her room. Objective Patient completed a series of simple y/n questions related to herself and daily needs with 60% given moderate verbal cues and response time. Assessment Assessment Current Status: Fair Progress Treatment Plan Continue Plan of Care Speech Short Term Goals Short Term Goals Short Term Goals 1) The patient will complete memory tasks related to her daily needs at 80% or greater with minimal cues. 2) The patient will complete safety awareness tasks related to her daily needs at 80% or greater with minimal cues. 3) The patient will complete problem solving tasks related to her daily needs at 80% or greater with minimal cues. 4) The patient will complete word finding tasks related to her daily needs at 80% or greater with minimal cues. Speech Care Home Goals Care Home Goals Patient will improve cognitive-communication necessary for safety and daily living tasks with minimal assist. Speech-Plan Patient/Family Goals Patient/Family Goals: Patient plans on returning to her [facility] upon discharge. Treatment Plan Speech Therapy Treatment Plan: Continue Plan of Care Treatment Duration: Nov 16, 2019 Frequency: 4 times per week (Patient will receive skilled ST 4-5x per week) Estimated Hrs Per Day: .5 hour per day Rehab Potential: Fair Barriers to Learning: Patient's decreased cognitive deficits Pt/Family Agrees to Plan: Yes Safety Risks/Education Teaching Recipient: Patient Teaching Methods: Demonstration, Discussion Response to Teaching: Verbalize Understanding, Return Demonstration Education Topics Provided: Safety within her room and communication of wants/needs Time Speech Therapy Time In: 10:30 Speech Therapy Time Out: 11:00 Total Billed Time: 30 Billed Treatment Time [address] Nov 17, 2019 13:41
[2019-11-17] MEDS ORDERED: NYSTATIN ORAL SUSP 5 ML UDC PO NR (13:45)
--- NOTE | 2019-11-17 13:54 | Physical Therapy Daily Note ---
PT Daily Note-Current Subjective Pt. shared in AM she feels very inhibited and SOB with mask on. Pt. also shares she uses concentrator in her room at [facility].States her room is small and her tube isnt very long but she manages it indep. This was difficult to envision as pt. seems very unaware of safety sumaya location of tube during gait so afternoon Rx focused on safe gait with extended tubing Pain Location: No Pain Reported Mental Status Patient Orientation: Person, Place, Situation Attachments: Oxygen (3L) Transfers SCALE: Activities may be completed with or without assistive devices. 9-Atxtnyxsgo-tjqxijb completes the activity by him/herself with no assistance from a helper. 5-Set-up or Clean-up Assistance-helper sets up or cleans up; patient completes activity. [place] assists only prior to or following the activity. 4-Supervision or Touching Assistance-helper provides verbal cues and/or touching/steadying and/or contact guard assistance as patient completes act ivity. Assistance may be provided throughout the activity or intermittently. 3-Partial/Moderate Assistance-helper does LESS THAN HALF the effort. [place] lifts, holds or supports trunk or limbs, but provides less than half the effort. 2-Substantial/Maximal Assistance-helper does MORE THAN HALF the effort. [place] lifts or holds trunk or limbs and provides more than half the effort. 4-Vyvbeltxf-divufd does ALL the effort. Patient does none of the effort to complete the activity. Or, the assistance of 2 or more helpers is required for the patient to complete the activity. If activity was not attempted, code reason: 7-Patient Refused. 9-Not Applicable-not attempted and the patient did not perform the activity before the current illness, exacerbation or injury. 10-Not Attempted due to Environmental Limitations-(lack of equipment, weather restraints, etc.). 88-Not Attempted due to Medical Conditions or Safety Concerns. sit to stands from recliner all SBA x 5 trials Weight Bearing Right Lower Extremity: Right Weight Bearing/Tolerated Left Lower Extremity: Left Weight Bearing/Tolerated Gait Training Does the Patient Walk?: Yes Gait Assistive Device: FWW gait with FWW 50 ft x 4 instructing pt. in safe use of extended O2 tubing during gait. Pt. appeared as if she has not though about these aspects previously and needed cues all along. No LOB but pt. very slow and deliberate ping with turns Exercises Seated Therapy Exercises: Ankle pumps, Sit to stand, Long arc quads Seated Reps: 10 Assessment Current Status: Good Progress PT Short Term Goals Short Term Goals Time Frame: Nov 22, 2019 Roll Left & Right: 6 Sit to lyin (min assist) Lying to sitting on side of be: 4 Sit to stand: 4 Chair/cjg-fn-uyfiw transfer: 4 Car transfer: 4 Walk 10 feet: 4 Walk 50 feet with two turns: 4 Does pt use a wc or scooter: Yes Wheel 50ft w/2 turns: 3 Wheel 150 feet: 3 PT Automatic Vulcanizing Lead Operator Goals Mcfp Goals PT Mcfp Goals Time Frame: Dec 06, 2019 Roll Left & Right (QC): 6 Sit to Lying (QC): 6 Lying-Sitting on Side/Bed(QC): 6 Sit to Stand (QC): 6 Chair/Enb-lx-Tpqpk Xfer(QC): 6 Toilet Transfer (QC): 6 Car Transfer (QC): 5 Does the Patient Walk: Yes Walk 10 feet (QC): 6 Walk 50ft with 2 Turns (QC): 6 Walk 150 ft (QC): 4 Walking 10ft on Uneven Surface: 4 1 Step (curb) (QC): 3 4 Steps (QC): 3 12 Steps (QC): 88 Picking up an Object (QC): 3 Does the Pt use WC or Scooter?: Yes Wheel 50 feet with 2 turns (QC: 6 Type: Manual Wheel 150 feet: 6 Type: Manual PT Plan Treatment/Plan Treatment Plan: Continue Plan of Care Treatment Plan: Bed Mobility, Education, Functional Activity [place], Functional Strength, Group Therapy, Gait, Safety, Therapeutic Exercise, Transfers Treatment Duration: Dec 06, 2019 Frequency: At least 5 of 7 days/Wk (IRF) Estimated Hrs Per Day: 1.5 hours per day Patient and/or Family Agrees t: Yes Safety Risks/Education Patient Education: Gait Training, Transfer Techniques, Correct Positioning, Disease Process, Safety Issues Teaching Recipient: Patient Teaching Methods: Demonstration, Discussion Response to Teaching: Verbalize Understanding, Return Demonstration, Reinforcement Needed Time/GCodes Time In: 1330 Time Out: 1350 Total Billed Treatment Time: 20 Total Billed Treatment 1,GT20m RIA [employer] Nov 17, 2019 13:54
[2019-11-17] MEDS ORDERED: ACETAMINOPHEN 325 MG TABLET PO PRN (14:15)
[2019-11-17] MEDS: fluCOnazole (DIFLUCAN) 100 MG TAB PO SCH (14:27)
[2019-11-17 14:49] VITALS: BP 141/60
--- NOTE | 2019-11-17 14:57 | NUR ---
"RD ASSESSMENT PMHx: COPD; pneumonia; hypercholesterolemia; HTN; renal failure; GERD; RA; CA(breast); CHF; DM PT INTERACTION: Pt was awake and pleasant during nutrition assessment. Pt states current appetite is good. Note avg PO intake 40% x2d, per chart review. Pt states following a regular diet at home, and has no issues with chewing/swallowing food. Pt states no recent issues with nausea, vomiting, constipation, and diarrhea. Pt states unsure of when her last BM was. Note pt not currently on bowel regimen per chart review. Note presence of wounds (buttocks), per chart review. ABNORMAL NUTRITION-RELATED LAB VALUES LOW: Ca 8.4; alkphos 39; Pro 4.5; alb 2.8 HIGH: BUN 31; cr 1.39 Est. kcal needs: 1700 kcal | 15 kcal/kg Est. Pro needs: 114 g Pro | 1.0 g Pro/kg PES STATEMENT: Inadequate oral intake (NI-2.1) related to loss of appetite as evidenced by pt interview | avg PO intake 40% x2d Inadequate protein intake (NI-5.6.1) related to increased protein needs as evidenced by presence of wounds (buttocks) INTERVENTION: Continue with current diet order of 2000mg Na diet. Pt may benefit from consistent CHO restriction if blood glucose levels become elevated. Add Ensure HP (vary) to meals TID. Provides 160 kcal and 16 g Pro per serving, for perceived benefit to wound healing. Will continue to follow and reassess as pt needs, intake, and status change. Serge Lewis, MS, RD, LD"
[2019-11-17 16:04] VITALS: BP 178/77
[2019-11-17] MEDS: NYSTATIN ORAL SUSP 5 ML UDC PO SCH (18:39)
--- NOTE | 2019-11-17 19:12 | NUR ---
bedside report received from VINCENT MELCHOR, assume care of pt
[2019-11-17] MEDS: RT-ALBUTEROL/IPRATROPIUM 3 ML (DUONEB) VIAL INH SCH (19:45)
[2019-11-17 21:14] VITALS: BP 149/68
[2019-11-17] MEDS: GABAPENTIN 300 MG (NEURONTIN) CAP PO SCH (21:15)
[2019-11-17] MEDS: MONTELUKAST 10 MG (SINGULAIR) TAB PO SCH (21:16)
[2019-11-17] MEDS: toPIRamate 25 MG (TOPAMAX) TAB PO SCH (21:16)
[2019-11-17] MEDS: SIMvastatin 20 MG (ZOCOR) TAB PO SCH (21:16)
--- NOTE | 2019-11-17 21:16 | NUR ---
pt took all medications without difficulty, states will take pain pill when I go to bed, pt remains up in the chair
--- NOTE | 2019-11-17 22:57 | NUR ---
c/o generalized discomfort, pain level 8/10 on numeric scale, oxyir 20mg given
--- NOTE | 2019-11-17 23:30 | NUR ---
resting quietly in bed, pain level 0/10 on CNPI SCALE
[2019-11-18] MEDS: NYSTATIN ORAL SUSP 5 ML UDC PO SCH ×4 (00:05→17:32)
[2019-11-18] MEDS: RT-ALBUTEROL/IPRATROPIUM 3 ML (DUONEB) VIAL INH SCH ×4 (01:43→18:26)
[2019-11-18 06:00] VITALS: BP 135/62
--- NOTE | 2019-11-18 06:30 | PM&R Progress Note ---
Subjective HPI/CC On Admission Date Seen by Provider: Nov 18, 2019 Time Seen by Provider: 12:30 Subjective/Events-last exam 11/18/19: Drowsy after pain meds Oxycodone has been her home med for 13 years Chronic pain is an issue 11/17/19: Improved status Less confusion Powder in her abdominal folds ordered by Dr Hugo. Lymphedema wraps placed by OT lymphedema specialists today Very poor short-term memory Creatinine 1.38 BP is okay Really wants to go home, I told her we will get her back to assisted living early next week Dr. Hugo is seeing her for wound care Wraps for her legs will be obtained from her son Prednisone tapered down Conferred with RN Reviewed therapy notes Checked meds and labs Review of Systems General: Fatigue, Malaise Neurological: Weakness, Confusion Objective Exam Vital Signs Vital Signs Date Time Temp Pulse Resp B/P (MAP) Pulse Ox O2 Delivery O2 Flow Rate FiO2 11/19/19 05:19 36.5 63 18 132/62 (85) 98 Nasal Cannula 2.50 Capillary Refill : Less Than 3 Seconds General Appearance: No Apparent Distress, WD/WN, Chronically ill, Obese HEENT: PERRL/EOMI, Normal ENT Inspection, Pharynx Normal Neck: Full Range of Motion, Normal Inspection, Non Tender, Supple, Carotid Bruit Respiratory: Chest Non Tender, Lungs Clear, Normal Breath Sounds, No Accessory Muscle Use, No Respiratory Distress Cardiovascular: Regular Rate, Rhythm, No Edema, No Gallop, No JVD, No Murmur, Normal Peripheral Pulses Gastrointestinal: Normal Bowel Sounds, No Organomegaly, No Pulsatile Mass, Non Tender, Soft Back: Normal Inspection, No CVA Tenderness, No Vertebral Tenderness Extremity: Normal Capillary Refill, Normal Inspection, Normal Range of Motion, Non Tender, No Calf Tenderness, No Pedal Edema Neurologic/Psychiatric: Alert, Oriented x3, No Motor/Sensory Deficits (generalized weakness), Normal Mood/Affect, physics technician II-XII Norm as Tested, Abnormal Gait, Disoriented (subtle) Skin: Normal Color, Warm/Dry Lymphatic: No Adenopathy Results/Procedures Lab Patient resulted labs reviewed. FIM Transfers Therapy Code Descriptions/Definitions Functional [place] Measure: 0=Not Assessed/NA 4=Minimal Assistance 1=Total Assistance 5=Supervision or Setup 2=Maximal Assistance 6=Modified [place] 3=Moderate Assistance 7=Complete IndependenceSCALE: Activities may be completed with or without assistive devices. 3-Llasxybmpd-awwbdlr completes the activity by him/herself with no assistance from a helper. 5-Set-up or Clean-up Assistance-helper sets up or cleans up; patient completes activity. [place] assists only prior to or following the activity. 4-Supervision or Touching Assistance-helper provides verbal cues and/or touching/steadying and/or contact guard assistance as patient completes act ivity. Assistance may be provided throughout the activity or intermittently. 3-Partial/Moderate Assistance-helper does LESS THAN HALF the effort. [place] lifts, holds or supports trunk or limbs, but provides less than half the effort. 2-Substantial/Maximal Assistance-helper does MORE THAN HALF the effort. [place] lifts or holds trunk or limbs and provides more than half the effort. 1-Wogopwcva-zrrzol does ALL the effort. Patient does none of the effort to complete the activity. Or, the assistance of 2 or more helpers is required for the patient to complete the activity. If activity was not attempted, code reason: 7-Patient Refused. 9-Not Applicable-not attempted and the patient did not perform the activity before the current illness, exacerbation or injury. 10-Not Attempted due to Environmental Limitations-(lack of equipment, weather restraints, etc.). 88-Not Attempted due to Medical Conditions or Safety Concerns. Roll Left to Right (QC): 6 Sit to Lying (QC): 5 Sit to Stand (QC): 6 Chair/Zmn-yh-Aobep Xfer(QC): 6 Car Transfer (QC): 3 Gait Training Does the Patient Walk?: Yes Distance: 20'x2 Walk 10 feet (QC): 5 Walk 50 ft with 2 Turns(QC): 88 Walk 150 ft (QC): 88 Walking 10ft/uneven surface-QC: 4 Gait Persons Needed: 1 Gait Assistive Device: FWW Wheelchair Training Does the Pt Use a Wheelchair?: Yes Distance: 200' Wheel 50 ft with 2 turns (QC): 5 Wheel 150 ft (QC): 1 Type of Wheelchair: Manual Stair Training 1 Step (curb) (QC): 88 4 Steps (QC): 88 12 Steps (QC): 88 Balance Picking up an Object (QC): 88 ADL-Treatment Eating (QC): 6 Oral Hygiene (QC): 5 (This OT seen this AM acutely, pt denied completing task again. Based on clinical judgement of this morning's tx, pt requires set up assistance) Shower/Bathe Self (QC): 3 (Pt completed shower seated on SC, Assistance washing back, buttocks, and under abdominal pannus) Upper Body Dressing (QC): 4 (SBA, cues and assistance managing oxygen tubing) Lower Body Dressing (QC): 1 On/Off Footwear (QC): 2 Toileting Hygiene (QC): 4 (SBA) Toilet Transfer (QC): 3 (CGA onto toilet, Min A off using GBS.) Assessment/Plan Assessment and Plan Assess & Plan/Chief Complaint Assessment: Debility Encephalopathy OHS Non-compliance with CPAP Obesity HTN DM Lymphedema Breast cancer hx CRI Hypoxia Plan: Home meds IRF protocol Fall risk O2 BP management 11/16/19: Taper steroids Monitor pain Home meds BP management DC catheter 11/17/19: Lympedema wraps in place now Monitor BP Monitor labs 11/18/19: Monitor drowsiness from Oxycodone O2 maintained since non-compliant with CPAP (1) Debility (2) Obesity hypoventilation syndrome Status: Chronic (3) Non-insulin dependent type 2 diabetes mellitus (4) Altered mental status Status: Resolved Resolution Date/Time: 02/21/18 @ 13:32 (5) Renal insufficiency Status: Chronic (6) Lymphedema Status: Chronic (7) LEIGHANN (acute kidney injury) Status: Resolved Resolution Date/Time: 02/20/18 @ 18:58 (8) COPD exacerbation Status: Resolved (9) CHF (congestive heart failure) Status: Chronic (10) Essential (primary) hypertension Status: Chronic (11) Hypoxia Status: Acute (12) Posterior reversible encephalopathy syndrome (PRES) Status: Chronic SIENNA MADERA DO Nov 18, 2019 06:30
[2019-11-18] MEDS: predniSONE 20 MG TAB PO SCH (06:48)
[2019-11-18 08:00] VITALS: BP 113/53
[2019-11-18] MEDS: polyethylene glycoL POWDER 17 GM (MIRALAX) PACK PO SCH ×2 (09:00→21:14)
[2019-11-18] MEDS: CARVEDILOL 12.5 MG (COREG) TABLET PO SCH ×2 (09:25→21:04)
[2019-11-18] MEDS: DULoxetine 30 MG (CYMBALTA) CAP PO SCH (09:25)
[2019-11-18] MEDS: ENALAPRIL 2.5 MG (VASOTEC) TAB PO SCH (09:25)
[2019-11-18] MEDS: ALLOPURINOL 100 MG (ZYLOPRIM) TAB PO SCH (09:25)
[2019-11-18] MEDS: TOLTERODINE LA 4 MG (DETROL) CAP PO SCH (09:25)
[2019-11-18] MEDS: PANTOPRAZOLE 40 MG (PROTONIX) TAB PO SCH (09:26)
[2019-11-18] MEDS: amLODIPine 5 MG (NORVASC) TAB PO SCH (09:26)
[2019-11-18] MEDS: CLOPIDOGREL 75 MG (PLAVIX) TABLET PO SCH (09:26)
[2019-11-18] MEDS: SENNA W/DOCUSATE (SENOKOT S) TABLET PO SCH ×2 (09:29→21:14)
[2019-11-18] MEDS: DOCUSATE SODIUM 100 MG (COLACE) CAP PO SCH ×2 (09:30→21:14)
[2019-11-18] MEDS: ENOXAPARIN 40 MG/0.4 ML (LOVENOX) SYR SC SCH ×2 (09:32→21:06)
[2019-11-18] MEDS: ZINC OXIDE 20% OINT 30 GM TUBE TOP SCH ×3 (09:32→21:09)
[2019-11-18] MEDS: MICONAZOLE 2% POWDER (DESENEX AF) 90 GM TOP SCH ×2 (09:33→21:10)
--- NOTE | 2019-11-18 10:41 | Physical Therapy Daily Note ---
PT Daily Note-Current Subjective Pt up in chair upon arrival. Pt c/o being very cold. Pt agrees to PT tx. Pain Numeric Pain Scale: 0-No Pain Location: No Pain Reported Mental Status Patient Orientation: Person, Place Attachments: Oxygen Transfers SCALE: Activities may be completed with or without assistive devices. 4-Quqglorzdq-rzjcaln completes the activity by him/herself with no assistance from a helper. 5-Set-up or Clean-up Assistance-helper sets up or cleans up; patient completes activity. [place] assists only prior to or following the activity. 4-Supervision or Touching Assistance-helper provides verbal cues and/or touching/steadying and/or contact guard assistance as patient completes activity. Assistance may be provided throughout the activity or intermittently. 3-Partial/Moderate Assistance-helper does LESS THAN HALF the effort. [place] lifts, holds or supports trunk or limbs, but provides less than half the effort. 2-Substantial/Maximal Assistance-helper does MORE THAN HALF the effort. [place] lifts or holds trunk or limbs and provides more than half the effort. 7-Gobeynvqb-yjkmdd does ALL the effort. Patient does none of the effort to complete the activity. Or, the assistance of 2 or more helpers is required for the patient to complete the activity. If activity was not attempted, code reason: 7-Patient Refused. 9-Not Applicable-not attempted and the patient did not perform the activity before the current illness, exacerbation or injury. 10-Not Attempted due to Environmental Limitations-(lack of equipment, weather restraints, etc.). 88-Not Attempted due to Medical Conditions or Safety Concerns. Weight Bearing Right Lower Extremity: Right Weight Bearing/Tolerated Left Lower Extremity: Left Weight Bearing/Tolerated Exercises Supine Ex: Ankle pumps, Quad Set, Glut sets, Heel Slides, Short Arc Quads, Straight leg raise, Hip abd/add Supine Reps: 10 Treatments Supine ex completed in chair w/ LE's elevated. Pt remains in chair w/ call light and bedside table w/in reach and all needs met, at end of tx. Assessment Current Status: Fair Progress VC's required throughout d/t pt continually trying to doze off. PT Short Term Goals Short Term Goals Time Frame: Nov 22, 2019 Roll Left & Right: 6 Sit to lyin (min assist) Lying to sitting on side of be: 4 Sit to stand: 4 Chair/gbc-aw-ydzlw transfer: 4 Car transfer: 4 Walk 10 feet: 4 Walk 50 feet with two turns: 4 Does pt use a wc or scooter: Yes Wheel 50ft w/2 turns: 3 Wheel 150 feet: 3 PT [facility] Goals [facility] Goals PT [facility] Goals Time Frame: Dec 06, 2019 Roll Left & Right (QC): 6 Sit to Lying (QC): 6 Lying-Sitting on Side/Bed(QC): 6 Sit to Stand (QC): 6 Chair/Aai-yo-Fblwd Xfer(QC): 6 Toilet Transfer (QC): 6 Car Transfer (QC): 5 Does the Patient Walk: Yes Walk 10 feet (QC): 6 Walk 50ft with 2 Turns (QC): 6 Walk 150 ft (QC): 4 Walking 10ft on Uneven Surface: 4 1 Step (curb) (QC): 3 4 Steps (QC): 3 12 Steps (QC): 88 Picking up an Object (QC): 3 Does the Pt use WC or Scooter?: Yes Wheel 50 feet with 2 turns (QC: 6 Type: Manual Wheel 150 feet: 6 Type: Manual PT Plan Problem List Problem List: Activity Tolerance, Functional Strength, Safety, ROM Treatment/Plan Treatment Plan: Continue Plan of Care Treatment Plan: Bed Mobility, Education, Functional Activity [place], Functional Strength, Group Therapy, Gait, Safety, Therapeutic Exercise, Transfers Treatment Duration: Dec 06, 2019 Frequency: At least 5 of 7 days/Wk (IRF) Estimated Hrs Per Day: 1.5 hours per day Patient and/or Family Agrees t: Yes Safety Risks/Education Patient Education: Correct Positioning, Safety Issues Teaching Recipient: Patient Teaching Methods: Discussion Response to Teaching: Verbalize Understanding, Reinforcement Needed Time/GCodes Time In: 1013 Time Out: 1028 Total Billed Treatment Time: 15 Total Billed Treatment 1, Ex (15m) CLINT CASTRO TRAVELER CHANGER Nov 18, 2019 10:41
[2019-11-18] MEDS: fluCOnazole (DIFLUCAN) 100 MG TAB PO SCH (11:35)
[2019-11-18] MEDS: HYDROXYCHLOROQUINE 200 MG (PLAQUENIL) TAB PO SCH ×2 (11:35→17:27)
--- NOTE | 2019-11-18 12:00 | NUR ---
UP IN CHAIR THIS AM. UP TO BATHROOM AND THEN TO BED LYING ON RIGHT SIDE. HAS BEEN CONTINENT OF URINE. HAS DENIED PAIN. BP STABLE. STATES MOUTH PAIN IMPROVED AND FEELING STRONGER. VERY POOR MEMORY. CAN'T KEEP TRACK OF CONVERSATION.
[2019-11-18] MEDS: ADVAIR HFA 115/21 MCG INHALER 8 GM IH SCH (13:11)
[2019-11-18 16:02] VITALS: BP 147/64
--- NOTE | 2019-11-18 19:16 | NUR ---
bedside report received from APRIL MELCHOR, assume care of pt
[2019-11-18 21:00] VITALS: BP 146/67
[2019-11-18] MEDS: GABAPENTIN 300 MG (NEURONTIN) CAP PO SCH (21:04)
[2019-11-18] MEDS: MONTELUKAST 10 MG (SINGULAIR) TAB PO SCH (21:04)
--- NOTE | 2019-11-18 21:05 | NUR ---
refused Colace, miralax & Senokot, c/o sandy leg pain, level 8/10 on numeric scale, oxyir 20mg given, repositioned on side
[2019-11-18] MEDS: toPIRamate 25 MG (TOPAMAX) TAB PO SCH (21:07)
[2019-11-18] MEDS: SIMvastatin 20 MG (ZOCOR) TAB PO SCH (21:08)
--- NOTE | 2019-11-18 21:50 | NUR ---
resting quietly in bed, pain level 0/10 on CNPI SCALE
[2019-11-19] MEDS: NYSTATIN ORAL SUSP 5 ML UDC PO SCH ×4 (00:21→17:06)
[2019-11-19] MEDS: RT-ALBUTEROL/IPRATROPIUM 3 ML (DUONEB) VIAL INH SCH (02:34)
[2019-11-19 05:19] VITALS: BP 132/62
[2019-11-19] MEDS: predniSONE 20 MG TAB PO SCH (06:19)
[2019-11-19 08:00] VITALS: BP 112/53
[2019-11-19 09:09] VITALS: BP 132/62
[2019-11-19] MEDS: SENNA W/DOCUSATE (SENOKOT S) TABLET PO SCH ×2 (09:12→21:30)
[2019-11-19] MEDS: TOLTERODINE LA 4 MG (DETROL) CAP PO SCH (09:12)
[2019-11-19] MEDS: DULoxetine 30 MG (CYMBALTA) CAP PO SCH (09:12)
[2019-11-19] MEDS: DOCUSATE SODIUM 100 MG (COLACE) CAP PO SCH ×2 (09:13→21:19)
[2019-11-19] MEDS: amLODIPine 5 MG (NORVASC) TAB PO SCH (09:13)
[2019-11-19] MEDS: ENALAPRIL 2.5 MG (VASOTEC) TAB PO SCH (09:13)
[2019-11-19] MEDS: PANTOPRAZOLE 40 MG (PROTONIX) TAB PO SCH (09:13)
[2019-11-19] MEDS: CLOPIDOGREL 75 MG (PLAVIX) TABLET PO SCH (09:13)
[2019-11-19] MEDS: ALLOPURINOL 100 MG (ZYLOPRIM) TAB PO SCH (09:13)
[2019-11-19] MEDS: CARVEDILOL 12.5 MG (COREG) TABLET PO SCH ×2 (09:13→21:18)
[2019-11-19] MEDS: polyethylene glycoL POWDER 17 GM (MIRALAX) PACK PO SCH ×2 (09:17→21:30)
[2019-11-19] MEDS: ENOXAPARIN 40 MG/0.4 ML (LOVENOX) SYR SC SCH ×2 (09:20→21:20)
[2019-11-19] MEDS: ZINC OXIDE 20% OINT 30 GM TUBE TOP SCH ×3 (09:21→21:28)
[2019-11-19] MEDS: MICONAZOLE 2% POWDER (DESENEX AF) 90 GM TOP SCH ×2 (09:21→21:30)
[2019-11-19] MEDS: ADVAIR HFA 115/21 MCG INHALER 8 GM IH SCH (09:37)
--- NOTE | 2019-11-19 10:00 | NUR ---
HAS BEEN UP IN CHAIR. ASSISTED BACK TO BED AND LYING ON LEFT SIDE. DENIES PAIN. SLEEPY AGAIN THIS AM.
[2019-11-19] MEDS: HYDROXYCHLOROQUINE 200 MG (PLAQUENIL) TAB PO SCH ×2 (11:13→17:06)
[2019-11-19] MEDS: fluCOnazole (DIFLUCAN) 100 MG TAB PO SCH (11:13)
--- NOTE | 2019-11-19 12:10 | PM&R Progress Note ---
Subjective HPI/CC On Admission Date Seen by Provider: Nov 19, 2019 Time Seen by Provider: 12:15 Subjective/Events-last exam 11/19/19: Drowsy after pain meds and xanax Last dose of Prednisone today Lymphedema wraps maintained 11/18/19: Drowsy after pain meds Oxycodone has been her home med for 13 years Chronic pain is an issue 11/17/19: Improved status Less confusion Powder in her abdominal folds ordered by Dr Hugo. Lymphedema wraps placed by OT lymphedema specialists today Very poor short-term memory Creatinine 1.38 BP is okay Really wants to go home, I told her we will get her back to assisted living early next week Dr. Hugo is seeing her for wound care Wraps for her legs will be obtained from her son Prednisone tapered down Conferred with RN Reviewed therapy notes Checked meds and labs Review of Systems General: Fatigue, Malaise Pulmonary: Dyspnea Cardiovascular: Edema Objective Exam Vital Signs Vital Signs Date Time Temp Pulse Resp B/P (MAP) Pulse Ox O2 Delivery O2 Flow Rate FiO2 11/19/19 09:38 94 Nasal Cannula 2.00 11/19/19 09:09 36.5 63 28 11/19/19 05:19 18 132/62 (85) Capillary Refill : Less Than 3 Seconds General Appearance: No Apparent Distress, WD/WN, Chronically ill, Obese HEENT: PERRL/EOMI, Normal ENT Inspection, Pharynx Normal Neck: Full Range of Motion, Normal Inspection, Non Tender, Supple, Carotid Brui t Respiratory: Chest Non Tender, Lungs Clear, Normal Breath Sounds, No Accessory Muscle Use, No Respiratory Distress Cardiovascular: Regular Rate, Rhythm, No Edema, No Gallop, No JVD, No Murmur, Normal Peripheral Pulses Gastrointestinal: Normal Bowel Sounds, No Organomegaly, No Pulsatile Mass, Non Tender, Soft Back: Normal Inspection, No CVA Tenderness, No Vertebral Tenderness Extremity: Normal Capillary Refill, Normal Inspection, Normal Range of Motion, Non Tender, No Calf Tenderness, No Pedal Edema Neurologic/Psychiatric: Alert, Oriented x3, No Motor/Sensory Deficits (generalized weakness), Normal Mood/Affect, bulk folder II-XII Norm as Tested, Abnormal Gait, Disoriented (subtle) Skin: Normal Color, Warm/Dry Lymphatic: No Adenopathy Results/Procedures Lab Patient resulted labs reviewed. FIM Transfers Therapy Code Descriptions/Definitions Functional [place] Measure: 0=Not Assessed/NA 4=Minimal Assistance 1=Total Assistance 5=Supervision or Setup 2=Maximal Assistance 6=Modified [place] 3=Moderate Assistance 7=Complete IndependenceSCALE: Activities may be completed with or without assistive devices. 8-Knhsvvqexz-dojdmcx completes the activity by him/herself with no assistance from a helper. 5-Set-up or Clean-up Assistance-helper sets up or cleans up; patient completes activity. [place] assists only prior to or following the activity. 4-Supervision or Touching Assistance-helper provides verbal cues and/or touching/steadying and/or contact guard assistance as patient completes activity. Assistance may be provided throughout the activity or intermittently. 3-Partial/Moderate Assistance-helper does LESS THAN HALF the effort. [place] lifts, holds or supports trunk or limbs, but provides less than half the effort. 2-Substantial/Maximal Assistance-helper does MORE THAN HALF the effort. [place] lifts or holds trunk or limbs and provides more than half the effort. 8-Mrkvvuqvk-dusija does ALL the effort. Patient does none of the effort to complete the activity. Or, the assistance of 2 or more helpers is required for the patient to complete the activity. If activity was not attempted, code reason: 7-Patient Refused. 9-Not Applicable-not attempted and the patient did not perform the activity before the current illness, exacerbation or injury. 10-Not Attempted due to Environmental Limitations-(lack of equipment, weather restraints, etc.). 88-Not Attempted due to Medical Conditions or Safety Concerns. Roll Left to Right (QC): 6 Sit to Lying (QC): 5 Sit to Stand (QC): 6 Chair/Lhi-rw-Phasr Xfer(QC): 6 Car Transfer (QC): 3 Gait Training Does the Patient Walk?: Yes Distance: 20'x2 Walk 10 feet (QC): 5 Walk 50 ft with 2 Turns(QC): 88 Walk 150 ft (QC): 88 Walking 10ft/uneven surface-QC: 4 Gait Persons Needed: 1 Gait Assistive Device: FWW Wheelchair Training Does the Pt Use a Wheelchair?: Yes Distance: 200' Wheel 50 ft with 2 turns (QC): 5 Wheel 150 ft (QC): 1 Type of Wheelchair: Manual Stair Training 1 Step (curb) (QC): 88 4 Steps (QC): 88 12 Steps (QC): 88 Balance Picking up an Object (QC): 88 ADL-Treatment Eating (QC): 6 Oral Hygiene (QC): 5 (This OT seen this AM acutely, pt denied completing task again. Based on clinical judgement of this morning's tx, pt requires set up assistance) Shower/Bathe Self (QC): 3 (Pt completed shower seated on SC, Assistance washing back, buttocks, and under abdominal pannus) Upper Body Dressing (QC): 4 (SBA, cues and assistance managing oxygen tubing) Lower Body Dressing (QC): 1 On/Off Footwear (QC): 2 Toileting Hygiene (QC): 4 (SBA) Toilet Transfer (QC): 3 (CGA onto toilet, Min A off using GBS.) Assessment/Plan Assessment and Plan Assess & Plan/Chief Complaint Assessment: Debility Encephalopathy OHS Non-compliance with CPAP Obesity HTN DM Lymphedema Breast cancer hx CRI Hypoxia Plan: Home meds IRF protocol Fall risk O2 BP management 11/16/19: Taper steroids Monitor pain Home meds BP management DC catheter 11/17/19: Lympedema wraps in place now Monitor BP Monitor labs 11/18/19: Monitor drowsiness from Oxycodone O2 maintained since non-compliant with CPAP 11/19/19: Minimize pain meds and xanax DC Wednesday to (1) Debility (2) Obesity hypoventilation syndrome Status: Chronic (3) Non-insulin dependent type 2 diabetes mellitus (4) Altered mental status Status: Resolved Resolution Date/Time: 02/21/18 @ 13:32 (5) Renal insufficiency Status: Chronic (6) Lymphedema Status: Chronic (7) LEIGHANN (acute kidney injury) Status: Resolved Resolution Date/Time: 02/20/18 @ 18:58 (8) COPD exacerbation Status: Resolved (9) CHF (congestive heart failure) Status: Chronic (10) Essential (primary) hypertension Status: Chronic (11) Hypoxia Status: Acute (12) Posterior reversible encephalopathy syndrome (PRES) Status: Chronic SIENNA MADERA DO Nov 19, 2019 12:10
[2019-11-19] MEDS ORDERED: CATHETER FLUSH 10 ML SYR IV PRN (16:15)
[2019-11-19 17:03] VITALS: BP 159/70
--- NOTE | 2019-11-19 19:13 | NUR ---
bedside report received from APRIL MELCHOR, assume care of pt
[2019-11-19 21:15] VITALS: BP 148/67
[2019-11-19] MEDS: SIMvastatin 20 MG (ZOCOR) TAB PO SCH (21:19)
[2019-11-19] MEDS: GABAPENTIN 300 MG (NEURONTIN) CAP PO SCH (21:19)
[2019-11-19] MEDS: MONTELUKAST 10 MG (SINGULAIR) TAB PO SCH (21:19)
[2019-11-19] MEDS: toPIRamate 25 MG (TOPAMAX) TAB PO SCH (21:21)
--- NOTE | 2019-11-19 21:21 | NUR ---
pt took Colace but refused Senokot & miralax, c/o pain to lower legs, 7/10 on numeric scale oxyir 20mg given
--- NOTE | 2019-11-19 22:15 | NUR ---
resting quietly in bed, pain level 0/10 on CNPI SCALE
[2019-11-19] MEDS: CATHETER FLUSH 10 ML SYR IV SCH (22:47)
[2019-11-20 05:15] VITALS: BP 117/53
--- NOTE | 2019-11-20 05:33 | PM&R Progress Note ---
Subjective HPI/CC On Admission Date Seen by Provider: Nov 20, 2019 Time Seen by Provider: 09:00 Subjective/Events-last exam 11/20/19: Pt having a pretty good day Just had a shower Will place lymphedema wraps on her legs today Labs looked really good Creatinine 1.0 No falls Pain is about the same DC planned for tomorrow, Wednesday will do COVID swab in order to get that done 11/19/19: Drowsy after pain meds and xanax Last dose of Prednisone today Lymphedema wraps maintained 11/18/19: Drowsy after pain meds Oxycodone has been her home med for 13 years Chronic pain is an issue 11/17/19: Improved status Less confusion Powder in her abdominal folds ordered by Dr Hugo. Lymphedema wraps placed by OT lymphedema specialists today Very poor short-term memory Creatinine 1.38 BP is okay Really wants to go home, I told her we will get her back to assisted living early next week Dr. Hugo is seeing her for wound care Wraps for her legs will be obtained from her son Prednisone tapered down Conferred with RN Reviewed therapy notes Checked meds and labs Review of Systems General: Fatigue, Malaise Neurological: Confusion Objective Exam Vital Signs Vital Signs Date Time Temp Pulse Resp B/P (MAP) Pulse Ox O2 Delivery O2 Flow Rate FiO2 11/21/19 05:13 37.0 71 18 107/50 (69) 96 Room Air 11/20/19 21:37 2.50 11/19/19 09:09 28 Capillary Refill : Less Than 3 Seconds General Appearance: No Apparent Distress, WD/WN, Chronically ill, Obese HEENT: PERRL/EOMI, Normal ENT Inspection, Pharynx Normal Neck: Full Range of Motion, Normal Inspection, Non Tender, Supple, Carotid Bruit Respiratory: Chest Non Tender, Lungs Clear, Normal Breath Sounds, No Accessory Muscle Use, No Respiratory Distress Cardiovascular: Regular Rate, Rhythm, No Edema, No Gallop, No JVD, No Murmur, Normal Peripheral Pulses Gastrointestinal: Normal Bowel Sounds, No Organomegaly, No Pulsatile Mass, Non Tender, Soft Back: Normal Inspection, No CVA Tenderness, No Vertebral Tenderness Extremity: Normal Capillary Refill, Normal Inspection, Normal Range of Motion, Non Tender, No Calf Tenderness, No Pedal Edema Neurologic/Psychiatric: Alert, Oriented x3, No Motor/Sensory Deficits (generalized weakness), Normal 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 FIM Transfers Therapy Code Descriptions/Definitions Functional [place] Measure: 0=Not Assessed/NA 4=Minimal Assistance 1=Total Assistance 5=Supervision or Setup 2=Maximal Assistance 6=Modified [place] 3=Moderate Assistance 7=Complete IndependenceSCALE: Activities may be completed with or without assistive devices. 0-Cshekywmak-nfjnizs completes the activity by him/herself with no assistance from a helper. 5-Set-up or Clean-up Assistance-helper sets up or cleans up; patient completes activity. [place] assists only prior to or following the activity. 4-Supervision or Touching Assistance-helper provides verbal cues and/or touching/steadying and/or contact guard assistance as patient completes activity. Assistance may be provided throughout the activity or intermittently. 3-Partial/Moderate Assistance-helper does LESS THAN HALF the effort. [place] lifts, holds or supports trunk or limbs, but provides less than half the effort. 2-Substantial/Maximal Assistance-helper does MORE THAN HALF the effort. [place] lifts or holds trunk or limbs and provides more than half the effort. 4-Kloziqaqo-gxbhkw does ALL the effort. Patient does none of the effort to complete the activity. Or, the assistance of 2 or more helpers is required for the patient to complete the activity. If activity was not attempted, code reason: 7-Patient Refused. 9-Not Applicable-not attempted and the patient did not perform the activity before the current illness, exacerbation or injury. 10-Not Attempted due to Environmental Limitations-(lack of equipment, weather restraints, etc.). 88-Not Attempted due to Medical Conditions or Safety Concerns. Roll Left to Right (QC): 6 Sit to Lying (QC): 5 Sit to Stand (QC): 6 Chair/Pxm-ey-Hvems Xfer(QC): 6 Car Transfer (QC): 3 Gait Training Does the Patient Walk?: Yes Distance: 20'x2 Walk 10 feet (QC): 5 Walk 50 ft with 2 Turns(QC): 88 Walk 150 ft (QC): 88 Walking 10ft/uneven surface-QC: 4 Gait Persons Needed: 1 Gait Assistive Device: FWW Wheelchair Training Does the Pt Use a Wheelchair?: Yes Distance: 200' Wheel 50 ft with 2 turns (QC): 5 Wheel 150 ft (QC): 1 Type of Wheelchair: Manual Stair Training 1 Step (curb) (QC): 88 4 Steps (QC): 88 12 Steps (QC): 88 Balance Picking up an Object (QC): 88 ADL-Treatment Eating (QC): 6 Oral Hygiene (QC): 5 (This OT seen this AM acutely, pt denied completing task again. Based on clinical judgement of this morning's tx, pt requires set up assistance) Shower/Bathe Self (QC): 3 (Pt completed shower seated on SC, Assistance washing back, buttocks, and under abdominal pannus) Upper Body Dressing (QC): 4 (SBA, cues and assistance managing oxygen tubing) Lower Body Dressing (QC): 1 On/Off Footwear (QC): 2 Toileting Hygiene (QC): 4 (SBA) Toilet Transfer (QC): 3 (CGA onto toilet, Min A off using GBS.) Assessment/Plan Assessment and Plan Assess & Plan/Chief Complaint Assessment: Debility Encephalopathy OHS Non-compliance with CPAP Obesity HTN DM Lymphedema Breast cancer hx CRI Hypoxia Plan: Home meds IRF protocol Fall risk O2 BP management 11/16/19: Taper steroids Monitor pain Home meds BP management DC catheter 11/17/19: Lympedema wraps in place now Monitor BP Monitor labs 11/18/19: Monitor drowsiness from Oxycodone O2 maintained since non-compliant with CPAP 11/19/19: Minimize pain meds and xanax DC Wednesday to 11/20/19: COVID swab Pending DC to [place] Monitor confusion (1) Debility (2) Obesity hypoventilation syndrome Status: Chronic (3) Non-insulin dependent type 2 diabetes mellitus (4) Altered mental status Status: Resolved Resolution Date/Time: 02/21/18 @ 13:32 (5) Renal insufficiency Status: Chronic (6) Lymphedema Status: Chronic (7) LEIGHANN (acute kidney injury) Status: Resolved Resolution Date/Time: 02/20/18 @ 18:58 (8) COPD exacerbation Status: Resolved (9) CHF (congestive heart failure) Status: Chronic (10) Essential (primary) hypertension Status: Chronic (11) Hypoxia Status: Acute (12) Posterior reversible encephalopathy syndrome (PRES) Status: Chronic SIENNA MADERA DO Nov 20, 2019 05:33
[2019-11-20 06:15] LABS: BASOPHILS % (AUTO) 0 % (0-10); HEMATOCRIT 32 % (35-52); HEMOGLOBIN 10.7 g/dL (11.5-16.0); MEAN CORPUSCULAR HEMOGLOBIN 32 pg (25-34); MEAN CORPUSCULAR HGB CONC 33 g/dL (32-36); MEAN PLATELET VOLUME 11.4 fL (9.0-12.2)
[2019-11-20 06:17] LABS: EOSINOPHILS # (AUTO) 0.3 10^3/uL (0.0-0.3); EOSINOPHILS % (AUTO) 3 % (0-10); LYMPHOCYTES # (AUTO) 2.1 10^3/uL (1.0-4.0); LYMPHOCYTES % (AUTO) 25 % (12-44); MEAN CORPUSCULAR VOLUME 95 fL (80-99); MONOCYTES # (AUTO) 0.7 10^3/uL (0.0-1.0); MONOCYTES % (AUTO) 9 % (0-12); NEUTROPHILS # (AUTO) 5.1 10^3/uL (1.8-7.8); NEUTROPHILS % (AUTO) 62 % (42-75); PLATELET COUNT 117 10^3/uL (130-400); WHITE BLOOD COUNT 8.3 10^3/uL (4.3-11.0)
[2019-11-20] MEDS: NYSTATIN ORAL SUSP 5 ML UDC PO SCH ×5 (06:34→23:15)
[2019-11-20] MEDS: CATHETER FLUSH 10 ML SYR IV SCH ×3 (06:34→21:00)
[2019-11-20 06:45] LABS: ALBUMIN 2.5 GM/DL (3.2-4.5); CREATININE SERUM 1.09 MG/DL (0.60-1.30); POTASSIUM 3.5 MMOL/L (3.6-5.0)
[2019-11-20] MEDS: MICONAZOLE 2% POWDER (DESENEX AF) 90 GM TOP SCH ×2 (08:36→21:00)
[2019-11-20] MEDS: ZINC OXIDE 20% OINT 30 GM TUBE TOP SCH ×3 (08:36→21:00)
[2019-11-20] MEDS: CARVEDILOL 12.5 MG (COREG) TABLET PO SCH ×2 (08:37→20:58)
[2019-11-20] MEDS: CLOPIDOGREL 75 MG (PLAVIX) TABLET PO SCH (08:37)
[2019-11-20] MEDS: ENOXAPARIN 40 MG/0.4 ML (LOVENOX) SYR SC SCH ×2 (08:37→20:59)
[2019-11-20] MEDS: DULoxetine 30 MG (CYMBALTA) CAP PO SCH (08:37)
[2019-11-20] MEDS: PANTOPRAZOLE 40 MG (PROTONIX) TAB PO SCH (08:37)
[2019-11-20] MEDS: ALLOPURINOL 100 MG (ZYLOPRIM) TAB PO SCH (08:37)
[2019-11-20] MEDS: DOCUSATE SODIUM 100 MG (COLACE) CAP PO SCH ×2 (08:37→20:58)
[2019-11-20] MEDS: amLODIPine 5 MG (NORVASC) TAB PO SCH (08:37)
[2019-11-20] MEDS: polyethylene glycoL POWDER 17 GM (MIRALAX) PACK PO SCH ×2 (08:37→20:58)
[2019-11-20] MEDS: TOLTERODINE LA 4 MG (DETROL) CAP PO SCH (08:37)
[2019-11-20] MEDS: SENNA W/DOCUSATE (SENOKOT S) TABLET PO SCH ×2 (08:37→20:58)
[2019-11-20] MEDS: ENALAPRIL 2.5 MG (VASOTEC) TAB PO SCH (08:37)
--- NOTE | 2019-11-20 09:29 | Occupational Ther Daily Note ---
OT Current Status-Daily Note Subjective Pt seated in recliner, agreeable to OT. Pt declined shower but agreeable to sponge bath ADL-Treatment Therapy Code Descriptions/Definitions Functional [place] Measure: 0=Not Assessed/NA 4=Minimal Assistance 1=Total Assistance 5=Supervision or Setup 2=Maximal Assistance 6=Modified [place] 3=Moderate Assistance 7=Complete IndependenceSCALE: Activities may be completed with or without assistive devices. 4-Alposwgkev-wsevjnh completes the activity by him/herself with no assistance from a helper. 5-Set-up or Clean-up Assistance-helper sets up or cleans up; patient completes activity. [place] assists only prior to or following the activity. 4-Supervision or Touching Assistance-helper provides verbal cues and/or touching/steadying and/or contact guard assistance as patient completes activity. Assistance may be provided throughout the activity or intermittently. 3-Partial/Moderate Assistance-helper does LESS THAN HALF the effort. [place] li fts, holds or supports trunk or limbs, but provides less than half the effort. 2-Substantial/Maximal Assistance-helper does MORE THAN HALF the effort. [place] lifts or holds trunk or limbs and provides more than half the effort. 6-Tgqpzbanv-uphjsr does ALL the effort. Patient does none of the effort to complete the activity. Or, the assistance of 2 or more helpers is required for the patient to complete the activity. If activity was not attempted, code reason: 7-Patient Refused. 9-Not Applicable-not attempted and the patient did not perform the activity before the current illness, exacerbation or injury. 10-Not Attempted due to Environmental Limitations-(lack of equipment, weather restraints, etc.). 88-Not Attempted due to Medical Conditions or Safety Concerns. Eating (QC): 6 (Pt reports no difficulty eating breakfast) Oral Hygiene (QC): 4 (SBA standing at sink) Shower/Bathe Self (QC): 3 (Min A under abdominal pannus, pt able to wash all o ther parts with min verbal cues, SBA in stance at FWW) Upper Body Dressing (QC): 4 (SBA, cues for management of oxygen tube while donning/doffing shirt.) Lower Body Dressing (QC): 4 (SBA in stance at FWW, min verbal cues with taks. Pt able to don/doff pants/underwear.) On/Off Footwear: 2 (Pt able to doff socks, required mod A doffing compression boots. Pt unable to don socks/compression boots requiring assistance.) Toileting Hygiene (QC): 4 (SBA) Toilet Transfer (QC): 4 (SBA onto toilet, CGA off) Other Treatment Pt seated at recliner, used FWW to ambulate to restroom with SBA. Pt completed toileting, then returned to recliner. Pt completed sponge bath and dressing at [facility], nursing present to provide pt meds. Pt then used FWW to go to bathroom, standing at sink to brush teeth. Pt leaned on counter for support throughout task, afterwards pt reports fatigue. Pt returned to recliner using FWW, SBA. Pt required moderate cues throughout session for sequencing and management of oxygen lines. Post OT tx, pt seated in recliner, call light in reach and all needs met, legs elevated. Education OT Patient Education: Correct positioning, Energy conservation, Modified ADL techniques, Progress toward Goal/Update tx plan, Purpose of tx/functional activities, Safety issues, Transfer techniques Teaching Recipient: Patient Teaching Methods: Discussion Response to Teaching: Verbalize Understanding OT Correction Goals Correction Goals Time Frame: Dec 06, 2019 Eating (QC): 6 Oral Hygiene (QC): 6 Toileting Hygiene (QC): 6 Shower/Bathe Self (QC): 4 Upper Body Dressing (QC): 5 Lower Body Dressing (QC): 5 On/Off Footwear (QC): 5 Additional Goals: 1-Demonstrate ADL Tasks, 2-Verbalize Understanding, 3- ImproveStrength/[place] 1=Demonstrate adherence to instructed precautions during ADL tasks. 2=Patient will verbalize/demonstrate understanding of assistive devices/modifications for ADL. 3=Patient will improve strength/tolerance for activity to enable patient to perform ADL's. OT Education/Plan Problem List/Assessment Assessment: Decreased Activ Tolerance, Decreased UE Strength, Impaired I ADL's, Impaired Self-Care Skills Discharge Recommendations Plan/Recommendations: Continue POC Treatment Plan/Plan of Care Patient would benefit from OT for education, treatment and training to promote independence in ADL's, mobility, safety and/or upper extremity function for ADL's. Plan of Care: ADL Retraining, Functional Mobility, Group Exercise/Act as Ind, UE Funct Exercise/Act Treatment Duration: Dec 06, 2019 Frequency: At least 5 of 7 days/Wk (IRF) Estimated Hrs Per Day: 1.5 hours per day Agreement: Yes Rehab Potential: Fair Time/GCodes Start Time: 08:00 Stop Time: 09:15 Total Time Billed (hr/min): 75 Billed Treatment Time 1, ADL 5 SHADI CHOEN OT Nov 20, 2019 09:29
[2019-11-20] MEDS: ADVAIR HFA 115/21 MCG INHALER 8 GM IH SCH (10:11)
--- NOTE | 2019-11-20 11:03 | Physical Therapy Daily Note ---
PT Daily Note-Current Subjective Pt. in recliner with eyes closed and states she can hardly keep her eyes open she is so sleepy Pain Location: No Pain Reported Mental Status Patient Orientation: Person, Place Attachments: Other-See Comments (mask out of room) Transfers SCALE: Activities may be completed with or without assistive devices. 4-Uellxpbznf-btbcajf completes the activity by him/herself with no assistance from a helper. 5-Set-up or Clean-up Assistance-helper sets up or cleans up; patient completes activity. [place] assists only prior to or following the activity. 4-Supervision or Touching Assistance-helper provides verbal cues and/or touching/steadying and/or contact guard assistance as patient completes activity. Assistance may be provided throughout the activity or intermittently. 3-Partial/Moderate Assistance-helper does LESS THAN HALF the effort. [place] lifts, holds or supports trunk or limbs, but provides less than half the effort. 2-Substantial/Maximal Assistance-helper does MORE THAN HALF the effort. [place] lifts or holds trunk or limbs and provides more than half the effort. 5-Nxidldvuz-mrjobv does ALL the effort. Patient does none of the effort to complete the activity. Or, the assistance of 2 or more helpers is required for the patient to complete the activity. If activity was not attempted, code reason: 7-Patient Refused. 9-Not Applicable-not attempted and the patient did not perform the activity before the current illness, exacerbation or injury. 10-Not Attempted due to Environmental Limitations-(lack of equipment, weather restraints, etc.). 88-Not Attempted due to Medical Conditions or Safety Concerns. Roll Left & Right (QC): 6 Sit to Lying (QC): 6 Lying to Sitting/Side of Bed(Q: 6 Sit to Stand (QC): 6 Chair/Anu-fh-Oblvf Xfer(QC): 6 Car Transfer (QC): 5 needed cuing for car approach and stable areas to reach for, pt. explaining what she is use to Weight Bearing Right Lower Extremity: Right Weight Bearing/Tolerated Left Lower Extremity: Left Weight Bearing/Tolerated Gait Training Does the Patient Walk?: Yes Walk 10 feet (QC): 5 Walk 50 ft with 2 Turns(QC): 5 Walk 150 ft (QC): 88 Walking 10ft/uneven surface-QC: 5 Gait Persons Needed: 1 Gait Assistive Device: FWW head down, moderate wt bearing on FWW, Wheelchair Training Does the Pt Use a Wheelchair?: Yes Wheel 50 ft with 2 turns (QC): 5 Wheel 150 ft (QC): 88 Type of Wheelchair: Manual very slow, fatigues and stops for rest breaks, this is the mode of mobility the pat uses at [employer] to meals and back Stair Training Stair Training: Handrails/: uses walker #of Steps: 4 1 Step (curb) (QC): 4 4 Steps (QC): 4 12 Steps (QC): 88 Stairs: Pattern: Step to needs instruction for sequence, needs standing rest break Balance Picking up an Object (QC): 88 (pt. declines) Exercises Supine Ex: Bridging, Ankle pumps, Quad Set, Rolling, Glut sets, Heel Slides, Short Arc Quads, Straight leg raise, Hip abd/add Supine Reps: 15 Seated Therapy Exercises: Ankle pumps, Sit to stand, Long arc quads, Hip flexion, Hip abd/add Seated Reps: 10 Assessment Current Status: Good Progress PT Short Term Goals Short Term Goals Time Frame: Nov 22, 2019 Roll Left & Right: 6 Sit to lyin (min assist) Lying to sitting on side of be: 4 Sit to stand: 4 Chair/kzg-cw-ckjra transfer: 4 Car transfer: 4 Walk 10 feet: 4 Walk 50 feet with two turns: 4 Does pt use a wc or scooter: Yes Wheel 50ft w/2 turns: 3 Wheel 150 feet: 3 PT [facility] Goals International Tax Manager Goals PT International Tax Manager Goals Time Frame: Dec 06, 2019 Roll Left & Right (QC): 6 Sit to Lying (QC): 6 Lying-Sitting on Side/Bed(QC): 6 Sit to Stand (QC): 6 Chair/Rco-qe-Ohzlp Xfer(QC): 6 Toilet Transfer (QC): 6 Car Transfer (QC): 5 Does the Patient Walk: Yes Walk 10 feet (QC): 6 Walk 50ft with 2 Turns (QC): 6 Walk 150 ft (QC): 4 Walking 10ft on Uneven Surface: 4 1 Step (curb) (QC): 3 4 Steps (QC): 3 12 Steps (QC): 88 Picking up an Object (QC): 3 Does the Pt use WC or Scooter?: Yes Wheel 50 feet with 2 turns (QC: 6 Type: Manual Wheel 150 feet: 6 Type: Manual PT Plan Treatment/Plan Treatment Plan: Continue Plan of Care Treatment Plan: Bed Mobility, Education, Functional Activity [place], Functional Strength, Group Therapy, Gait, Safety, Therapeutic Exercise, Transfers Treatment Duration: Dec 06, 2019 Frequency: At least 5 of 7 days/Wk (IRF) Estimated Hrs Per Day: 1.5 hours per day Patient and/or Family Agrees t: Yes Safety Risks/Education Patient Education: Gait Training, Transfer Techniques, Steps, Correct Positioni ng, W/C Management, Disease Process, Safety Issues Teaching Recipient: Patient Teaching Methods: Demonstration, Discussion Response to Teaching: Verbalize Understanding, Return Demonstration, Reinforcement Needed Time/GCodes Time In: 1000 Time Out: 1100 Total Billed Treatment Time: 60 Total Billed Treatment 1,FA30m,EX15m,GT15m RIA [place] [employer]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
[2019-11-20] MEDS: HYDROXYCHLOROQUINE 200 MG (PLAQUENIL) TAB PO SCH ×2 (13:04→17:56)
[2019-11-20] MEDS: fluCOnazole (DIFLUCAN) 100 MG TAB PO SCH (13:04)
--- NOTE | 2019-11-20 14:09 | Physical Therapy Daily Note ---
PT Daily Note-Current Subjective Pt. in bedside chair, agrees to therapy. No complaints. Mental Status Patient Orientation: Person, Place, Time, Situation Attachments: Oxygen Transfers SCALE: Activities may be completed with or without assistive devices. 9-Npsaesorql-mdjxweb completes the activity by him/herself with no assistance from a helper. 5-Set-up or Clean-up Assistance-helper sets up or cleans up; patient completes activity. [place] assists only prior to or following the activity. 4-Supervision or Touching Assistance-helper provides verbal cues and/or touching/steadying and/or contact guard assistance as patient completes a ctivity. Assistance may be provided throughout the activity or intermittently. 3-Partial/Moderate Assistance-helper does LESS THAN HALF the effort. [place] lifts, holds or supports trunk or limbs, but provides less than half the effort. 2-Substantial/Maximal Assistance-helper does MORE THAN HALF the effort. [place] lifts or holds trunk or limbs and provides more than half the effort. 6-Aqndsllpz-safhee does ALL the effort. Patient does none of the effort to complete the activity. Or, the assistance of 2 or more helpers is required for the patient to complete the activity. If activity was not attempted, code reason: 7-Patient Refused. 9-Not Applicable-not attempted and the patient did not perform the activity before the current illness, exacerbation or injury. 10-Not Attempted due to Environmental Limitations-(lack of equipment, weather restraints, etc.). 88-Not Attempted due to Medical Conditions or Safety Concerns. Sit to Lying (QC): 4 Sit to Stand (QC): 6 Weight Bearing Right Lower Extremity: Right Weight Bearing/Tolerated Left Lower Extremity: Left Weight Bearing/Tolerated Gait Training Does the Patient Walk?: Yes Distance: 2 x 30 ft Walk 10 feet (QC): 4 Gait Persons Needed: 1 Gait Assistive Device: FWW Treatments worked on short-distance ambulation while managing oxygen tubing. Assessment Current Status: Good Progress Pt. did well managing oxygen tubing with short-distance ambulation in the room. Pt. returned to bed, needed min A with LE's to lie supine. Pt. in bed with call light and all needs met. PT Short Term Goals Short Term Goals Time Frame: Nov 22, 2019 Roll Left & Right: 6 Sit to lyin (min assist) Lying to sitting on side of be: 4 Sit to stand: 4 Chair/hdd-yg-mzymm transfer: 4 Car transfer: 4 Walk 10 feet: 4 Walk 50 feet with two turns: 4 Does pt use a wc or scooter: Yes Wheel 50ft w/2 turns: 3 Wheel 150 feet: 3 PT Penitentiary Goals Penitentiary Goals PT Penitentiary Goals Time Frame: Dec 06, 2019 Roll Left & Right (QC): 6 Sit to Lying (QC): 6 Lying-Sitting on Side/Bed(QC): 6 Sit to Stand (QC): 6 Chair/[place]-Xnpnw Xfer(QC): 6 Toilet Transfer (QC): 6 Car Transfer (QC): 5 Does the Patient Walk: Yes Walk 10 feet (QC): 6 Walk 50ft with 2 Turns (QC): 6 Walk 150 ft (QC): 4 Walking 10ft on Uneven Surface: 4 1 Step (curb) (QC): 3 4 Steps (QC): 3 12 Steps (QC): 88 Picking up an Object (QC): 3 Does the Pt use WC or Scooter?: Yes Wheel 50 feet with 2 turns (QC: 6 Type: Manual Wheel 150 feet: 6 Type: Manual PT Plan Treatment/Plan Treatment Plan: Continue Plan of Care Treatment Plan: Bed Mobility, Education, Functional Activity [place], Functional Strength, Group Therapy, Gait, Safety, Therapeutic Exercise, Transfers Treatment Duration: Dec 06, 2019 Frequency: At least 5 of 7 days/Wk (IRF) Estimated Hrs Per Day: 1.5 hours per day Patient and/or Family Agrees t: Yes Time/GCodes Time In: 1355 Time Out: 1415 Total Billed Treatment Time: 20 Total Billed Treatment 1, GT 20' GERA FERNANDO PT Nov 20, 2019 14:09
--- NOTE | 2019-11-20 14:12 | NUR ---
CM/SS DISCHARGE PLANNING Alerted established [facility] HOME residency of patient's readiness for discharge. Director/Jade and/or LOCATION MANAGER will come assess patient tomorrow regarding required approval to return. They also require a negative Covid screening, pending at this time. Updated physician, attempted call to son, no answer, left message.
[2019-11-20 15:08] VITALS: BP 117/53
--- NOTE | 2019-11-20 15:35 | Speech Therapy Daily Note ---
Speech Daily Progress Note Subjective Date Seen by Provider: Nov 20, 2019 Time Seen by Provider: 00:30 Patient was resting in her recliner, she states she's really tired today. Objective Patient completed a series of memory questions related to her daily needs at 80% with moderate cues and/or repetition. Assessment Assessment Current Status: Fair Progress Treatment Plan Continue Plan of Care Speech Short Term Goals Short Term Goals Short Term Goals 1) The patient will complete memory tasks related to her daily needs at 80% or greater with minimal cues. 2) The patient will complete safety awareness tasks related to her daily needs at 80% or greater with minimal cues. 3) The patient will complete problem solving tasks related to her daily needs at 80% or greater with minimal cues. 4) The patient will complete word finding tasks related to her daily needs at 80% or greater with minimal cues. Speech Halfway Goals Travel Registered Nurse Nicu Goals Patient will improve cognitive-communication necessary for safety and daily living tasks with minimal assist. Speech-Plan Patient/Family Goals Patient/Family Goals: Patient plans on returning to her [facility] apartment upon discharge. Treatment Plan Speech Therapy Treatment Plan: Continue Plan of Care Treatment Duration: Nov 16, 2019 Frequency: 4 times per week (Patient will receive skilled ST 4-5x per week) Estimated Hrs Per Day: .5 hour per day Rehab Potential: Fair Barriers to Learning: Patient's decreased level of function Pt/Family Agrees to Plan: Yes Safety Risks/Education Teaching Recipient: Patient Teaching Methods: Demonstration, Discussion Response to Teaching: Verbalize Understanding, Return Demonstration Education Topics Provided: Continued safety upon discharge Time Speech Therapy Time In: 09:30 Speech Therapy Time Out: 10:00 Total Billed Time: 30 Billed Treatment Time 1, SLTS No QUALITY CODES: EXPRESSION OF IDEAS/WANTS: 3 UNDERSTANDING VERBAL CONTENT: 3 BRIEF INTERVIEW: YES REPETITION OF 3 WORDS: 3 TEMPORAL ORIENTATION: YEAR: CORRECT, MONTH: CORRECT, DAY: MISSED BY ONE DAY RECALL OF SOCK: YES WITH CUE, COLOR: YES WITH CUE, BED: NO MEMORY/ABILITY TO RECALL: CURRENT SEASON, THAT SHE IS IN THE HOSPITAL EDD MICHELE Nov 20, 2019 15:35
[2019-11-20 15:55] VITALS: BP 126/57
[2019-11-20 20:56] VITALS: BP 137/63
[2019-11-20] MEDS: SIMvastatin 20 MG (ZOCOR) TAB PO SCH (20:58)
[2019-11-20] MEDS: GABAPENTIN 300 MG (NEURONTIN) CAP PO SCH (20:58)
[2019-11-20] MEDS: MONTELUKAST 10 MG (SINGULAIR) TAB PO SCH (20:58)
[2019-11-20] MEDS: toPIRamate 25 MG (TOPAMAX) TAB PO SCH (20:59)
[2019-11-20 23:15] VITALS: BP 137/63
[2019-11-21 05:13] VITALS: BP 107/50
[2019-11-21] MEDS: CATHETER FLUSH 10 ML SYR IV SCH (06:00)
[2019-11-21] MEDS: NYSTATIN ORAL SUSP 5 ML UDC PO SCH ×2 (06:00→12:52)
[2019-11-21] MEDS: ADVAIR HFA 115/21 MCG INHALER 8 GM IH SCH (07:28)
[2019-11-21] MEDS ORDERED: RT-ALBUTEROL/IPRATROPIUM 3 ML (DUONEB) VIAL INH SCH (08:00)
[2019-11-21] MEDS ORDERED: AMLO5TAB9 PO (08:27)
[2019-11-21] MEDS ORDERED: NYST1000 PO (08:27)
[2019-11-21] MEDS ORDERED: MICO90PO TOP (08:27)
--- NOTE | 2019-11-21 08:31 | Discharge Summary ---
Diagnosis/Chief Complaint Date of Admission Nov 15, 2019 at 11:17 Date of Discharge Discharge Date: Nov 21, 2019 Discharge Diagnosis Assessment: Debility Encephalopathy OHS Non-compliance with CPAP Obesity HTN DM Lymphedema Breast cancer hx CRI Hypoxia Plan: Home meds IRF protocol Fall risk O2 BP management 11/16/19: Taper steroids Monitor pain Home meds BP management DC catheter 11/17/19: Lympedema wraps in place now Monitor BP Monitor labs 11/18/19: Monitor drowsiness from Oxycodone O2 maintained since non-compliant with CPAP 11/19/19: Minimize pain meds and xanax DC Wednesday to [place] 11/20/19: COVID swab Pending DC to [place] Monitor confusion (1) Debility (2) Obesity hypoventilation syndrome Status: Chronic (3) Non-insulin dependent type 2 diabetes mellitus (4) Altered mental status Status: Resolved Resolution Date/Time: 02/21/18 @ 13:32 (5) Renal insufficiency Status: Chronic (6) Lymphedema Status: Chronic (7) LEIGHANN (acute kidney injury) Status: Resolved Resolution Date/Time: 02/20/18 @ 18:58 (8) COPD exacerbation Status: Resolved (9) CHF (congestive heart failure) Status: Chronic (10) Essential (primary) hypertension Status: Chronic (11) Hypoxia Status: Acute (12) Posterior reversible encephalopathy syndrome (PRES) Status: Chronic Discharge Summary Discharge Physical Examination Allergies: Coded Allergies: NSAIDS (Non-Steroidal Anti-Inflamma (Unverified Allergy, Mild, 03/18/09) Influenza Virus Vaccines (Verified Allergy, Unknown, 12/07/18) Penicillins (Verified Allergy, Unknown, 01/03/06) Sulfa (Sulfonamide Antibiotics) (Verified Allergy, Unknown, 01/03/06) aspirin (Verified Allergy, Unknown, 01/03/06) atorvastatin (Verified Allergy, Unknown, 12/07/18) carbamazepine (Verified Allergy, Unknown, 09/20/06) cephalexin (Verified Allergy, Unknown, 01/03/06) iodine (Verified Allergy, Unknown, 01/03/06) latex (Unverified Allergy, Unknown, 06/21/13) meloxicam (Verified Allergy, Unknown, 12/07/18) peanut (Verified Allergy, Unknown, 12/07/18) Vitals & I&Os Vital Signs Date Time Temp Pulse Resp B/P (MAP) Pulse Ox O2 Delivery O2 Flow Rate FiO2 11/21/19 13:00 37.0 71 18 107/50 95 Nasal Cannula 2.50 11/19/19 09:09 28 General Appearance: Alert, Oriented X3, Cooperative Respiratory: Clear to Auscultation Cardiovascular: Regular Rate Psych/Mental Status: Mental Status NL Hospital Course Was the Problem List Reviewed?: Yes Hospital Course: Pt had a short hospital course after she was admitted from [facility] for confusion and acute renal failure with abnormal UA which urine culture was no growth to date so antibiotics were discontinued placed back on Macrobid daily to prevent recurrent UTIs. Overall she did very well and acute renal failure resolved. We modified a little bit of her diuretic therapy to decrease the Bumex, maintained on her lymphedema wraps on her lower extremities and ov erall was deemed stable. Covid swab was negative and she wad discharged back to [facility] with close follow up with me for a Zoom Teleconference meeting in one week. Labs (last 24 hrs) Laboratory Tests 11/16/19 05:30: White Blood Count 8.2, Red Blood Count 4.01, Hemoglobin 12.7, Hematocrit 37, Mean Corpuscular Volume 92, Mean Corpuscular Hemoglobin 32, Mean Corpuscular Hemoglobin Concent 34, Red Cell Distribution Width 12.4, Platelet Count 144, Mean Platelet Volume 10.9, Immature Granulocyte % (Auto) 1, Neutrophils (%) (Auto) 74, Lymphocytes (%) (Auto) 15, Monocytes (%) (Auto) 10, Eosinophils (%) (Auto) 0, Basophils (%) (Auto) 0, Neutrophils # (Auto) 6.0, Lymphocytes # (Auto) 1.2, Monocytes # (Auto) 0.8, Eosinophils # (Auto) 0.0, Basophils # (Auto) 0.0, Immature Granulocyte # (Auto) 0.1, Sodium Level 138, Potassium Level 3.6, Chloride Level 105, Carbon Dioxide Level 27, Anion Gap 6, Blood Urea Nitrogen 31H, Creatinine 1.39H, Estimat Glomerular Filtration Rate 37, BUN/Creatinine Ratio 22, Glucose Level 80, Calcium Level 8.4L, Corrected Calcium 9.4, Total Bilirubin 0.8, Aspartate Amino Transf (AST/SGOT) 22, Alanine Aminotransferase (ALT/SGPT) 19, Alkaline Phosphatase 39L, Total Protein 4.5L, Albumin 2.8L 11/20/19 05:55: White Blood Count 8.3, Red Blood Count 3.37L, Hemoglobin 10.7L, Hematocrit 32L, Mean Corpuscular Volume 95, Mean Corpuscular Hemoglobin 32, Mean Corpuscular Hemoglobin Concent 33, Red Cell Distribution Width 13.2, Platelet Count 117L, Mean Platelet Volume 11.4, Immature Granulocyte % (Auto) 1, Neutrophils (%) (Auto) 62, Lymphocytes (%) (Auto) 25, Monocytes (%) (Auto) 9, Eosinophils (%) (Auto) 3, Basophils (%) (Auto) 0, Neutrophils # (Auto) 5.1, Lymphocytes # (Auto) 2.1, Monocytes # (Auto) 0.7, Eosinophils # (Auto) 0.3, Basophils # (Auto) 0.0, Immature Granulocyte # (Auto) 0.1, Sodium Level 139, Potassium Level 3.5L, Chloride Level 106, Carbon Dioxide Level 28, Anion Gap 5, Blood Urea Nitrogen 25H, Creatinine 1.09, Estimat Glomerular Filtration Rate 49, BUN/Creatinine Ratio 23, Glucose Level 78, Calcium Level 8.0L, Corrected Calcium 9.2, Total Bilirubin 1.0, Aspartate Amino Transf (AST/SGOT) 21, Alanine Aminotransferase (ALT/SGPT) 19, Alkaline Phosphatase 34L, Total Protein 4.0L, Albumin 2.5L 11/20/19 11:05: Coronavirus (COVID-19)(PCR) Negative Pending Labs Laboratory Tests 11/16/19 05:30: White Blood Count 8.2, Red Blood Count 4.01, Hemoglobin 12.7, Hematocrit 37, Mean Corpuscular Volume 92, Mean Corpuscular Hemoglobin 32, Mean Corpuscular Hemoglobin Concent 34, Red Cell Distribution Width 12.4, Platelet Count 144, Mean Platelet Volume 10.9, Immature Granulocyte % (Auto) 1, Neutrophils (%) (Auto) 74, Lymphocytes (%) (Auto) 15, Monocytes (%) (Auto) 10, Eosinophils (%) (Auto) 0, Basophils (%) (Auto) 0, Neutrophils # (Auto) 6.0, Lymphocytes # (Auto) 1.2, Monocytes # (Auto) 0.8, Eosinophils # (Auto) 0.0, Basophils # (Auto) 0.0, Immature Granulocyte # (Auto) 0.1, Sodium Level 138, Potassium Level 3.6, Chloride Level 105, Carbon Dioxide Level 27, Anion Gap 6, Blood Urea Nitrogen 31, Creatinine 1.39, Estimat Glomerular Filtration Rate 37, BUN/Creatinine Ratio 22, Glucose Level 80, Calcium Level 8.4, Corrected Calcium 9.4, Total Bilirubin 0.8, Aspartate Amino Transf (AST/SGOT) 22, Alanine Aminotransferase (ALT/SGPT) 19, Alkaline Phosphatase 39, Total Protein 4.5, Albumin 2.8 11/20/19 05:55: White Blood Count 8.3, Red Blood Count 3.37, Hemoglobin 10.7, Hematocrit 32, Mean Corpuscular Volume 95, Mean Corpuscular Hemoglobin 32, Mean Corpuscular Hemoglobin Concent 33, Red Cell Distribution Width 13.2, Platelet Count 117, Mean Platelet Volume 11.4, Immature Granulocyte % (Auto) 1, Neutrophils (%) (Aut o) 62, Lymphocytes (%) (Auto) 25, Monocytes (%) (Auto) 9, Eosinophils (%) (Auto) 3, Basophils (%) (Auto) 0, Neutrophils # (Auto) 5.1, Lymphocytes # (Auto) 2.1, Monocytes # (Auto) 0.7, Eosinophils # (Auto) 0.3, Basophils # (Auto) 0.0, Immature Granulocyte # (Auto) 0.1, Sodium Level 139, Potassium Level 3.5, Chloride Level 106, Carbon Dioxide Level 28, Anion Gap 5, Blood Urea Nitrogen 25, Creatinine 1.09, Estimat Glomerular Filtration Rate 49, BUN/Creatinine Ratio 23, Glucose Level 78, Calcium Level 8.0, Corrected Calcium 9.2, Total Bilirubin 1.0, Aspartate Amino Transf (AST/SGOT) 21, Alanine Aminotransferase (ALT/SGPT) 19, Alkaline Phosphatase 34, Total Protein 4.0, Albumin 2.5 11/20/19 11:05: Coronavirus (COVID-19)(PCR) Negative Discharge Home Medications: Active Scripts Active Lotrimin AF (Miconazole Nitrate) 90 Gm Powder 0 Gm TOP BID Amlodipine Besylate 5 Mg Tablet 5 Mg PO DAILY Nystatin 100,000 Unit/1 Ml Oral.susp 5 Ml PO Q6HR Reported Lactulose 10 Gm/15 Ml Solution 30 Ml PO TID PRN Vitamin D3 (Cholecalciferol (Vitamin D3)) 50 Mcg Tablet 50 Mcg PO HS Locoid 0.1% Lipocream (Hydrocortisone Butyrate/Emoll) 15 Gm Cream..g. 1 Applic TP BID PRN Montelukast Sodium 10 Mg Tablet 10 Mg PO HS Neurontin (Gabapentin) 300 Mg Capsule 300 Mg PO HS Triamcinolone Acetonide 0.1% Cream (Triamcinolone Acet) 15 Gm Cr 1 Applic TP BID PRN APPLY TO LEFT LEG Bumetanide 2 Mg Tablet 2 Mg PO DAILY PRN USE IF GAINED MORE THAN 5 POUNDS A DAY Guaifenesin Dm Syrup (Guaifenesin/Dextromethorphan) 5 Ml Syrup 5 Ml PO Q6H PRN Topiramate 25 Mg Tablet 25 Mg PO HS Iprat-Albut 0.5-3(2.5) mg/3 ml (Ipratropium/Albuterol Sulfate) 3 Ml Ampul.neb 3 Ml NEB 0800,1600 Iron (Ferrous Sulfate) 325 Mg Tablet 325 Mg PO DAILY Enalapril Maleate 2.5 Mg Tablet 2.5 Mg PO DAILY Ipratropium [place] 0.2 Mg/1 Ml Solution 0.2 Mg NEB TID PRN Guaifenesin AC Cough Syrup (Guaifenesin/Codeine Phosphate) 473 Ml Liquid 5 Ml PO Q6H PRN Oxycodone HCl 20 Mg Tablet 20 Mg PO 0600,1400,2200 Cranberry (Cranberry Fruit) 400 Mg Tablet 400 Mg PO BID Allopurinol 100 Mg Tablet 100 Mg PO DAILY Vitamin C (Ascorbate Calcium) 500 Mg Tablet 500 Mg PO DAILY Detrol LA (Tolterodine Tartrate) 4 Mg Cap 4 Mg PO DAILY Macrodantin (Nitrofurantoin Macrocrystal) 100 Mg Capsule 100 Mg PO 1700 TAKE WITH DINNER Calmoseptine Ointment (Menthol/Lanolin/Calamine/Znox) 71 Gm Oint 1 Applic TP UD PRN APPLY TO JARETT AREA Oxycodone HCl 20 Mg Tablet 20 Mg PO Q6H PRN Simvastatin 20 Mg Tablet 20 Mg PO HS Plavix (Clopidogrel Bisulfate) 75 Mg Tablet 75 Mg PO DAILY Allergy Relief (Cetirizine HCl) 10 Mg Tablet 10 Mg PO DAILY Carvedilol 12.5 Mg Tablet 12.5 Mg PO BID Duloxetine HCl 60 Mg Capsule.dr 60 Mg PO DAILY Hydroxychloroquine Sulfate 200 Mg Tablet 200 Mg PO 1200,1700 TAKES WITH FOOD Nexium (Esomeprazole Magnesium) 40 Mg Cap 40 Mg PO HS Advair 250-50 Diskus (Fluticasone/Salmeterol) 1 Each Blst.w.dev 1 Puff IH DAILY Fluticasone Propionate 16 Gm Rye.susp 1 Rye NS DAILY PRN Potassium Chloride 10 Meq Capsule.er 20 Meq PO 1200,1700 TAKES 2 (10MEQ) CAPSULES TAKES WITH FOOD Instructions to patient/family Please see electronic discharge instructions given to patient. Diagnosis/Problems Diagnosis/Problems (1) Debility (2) Obesity hypoventilation syndrome Status: Chronic (3) Non-insulin dependent type 2 diabetes mellitus (4) Altered mental status Status: Resolved Resolution Date/Time: 02/21/18 @ 13:32 (5) Renal insufficiency Status: Chronic (6) Lymphedema Status: Chronic (7) LEIGHANN (acute kidney injury) Status: Resolved Resolution Date/Time: 02/20/18 @ 18:58 (8) COPD exacerbation Status: Resolved (9) CHF (congestive heart failure) Status: Chronic (10) Essential (primary) hypertension Status: Chronic (11) Hypoxia Status: Acute (12) Posterior reversible encephalopathy syndrome (PRES) Status: Chronic Clinical Quality Measures DVT/VTE Risk/Contraindication: Risk Factor Score Per Nursin RFS Level Per Nursing on Admit: 4+=Very High SIENNA MADERA DO Nov 21, 2019 08:31
--- NOTE | 2019-11-21 08:31 | D/C HH Face to Face Order ---
D/C Face to Face Orders Reconcile Patient Problems Problems Reviewed?: Yes Instructions for Patient Home Health Patient Instructions/FollowUp: Dr Parada in 1 week Physician to follow Patient: Dr Parada Discharge Diet for Home: No Restrictions Patient Problems: Debility VALDO Hypoxia Confusion Recurrent UTI CRI Patient Data-Allergies,Ht & Wt Patient Allergies: Coded Allergies: NSAIDS (Non-Steroidal Anti-Inflamma (Unverified Allergy, Mild, 03/18/09) Influenza Virus Vaccines (Verified Allergy, Unknown, 12/07/18) Penicillins (Verified Allergy, Unknown, 01/03/06) Sulfa (Sulfonamide Antibiotics) (Verified Allergy, Unknown, 01/03/06) aspirin (Verified Allergy, Unknown, 01/03/06) atorvastatin (Verified Allergy, Unknown, 12/07/18) carbamazepine (Verified Allergy, Unknown, 09/20/06) cephalexin (Verified Allergy, Unknown, 01/03/06) iodine (Verified Allergy, Unknown, 01/03/06) latex (Unverified Allergy, Unknown, 06/21/13) meloxicam (Verified Allergy, Unknown, 12/07/18) peanut (Verified Allergy, Unknown, 12/07/18) Height (Feet): 5 Height (Inches): 4.00 Weight (Pounds): 270 Weight (Ounces): 9.0 Home Health Need/Face to Face Date of Face to Face: Nov 21, 2019 Clinical Findings: Generalized weakness and fatigue, Instability, Muscle weakness, Unsteady gait I have seen Pt [id number]: Yes Discharged To: Home Diagnosis/Conditions: Debility VALDO Hypoxia Confusion Recurrent UTI CRI Patient is Homebound due to: Muscle weakness, Pain w/ambulation Homebound Status Due to the above stated illness, injury or surgical procedure (medical condition or diagnosis) and associated clinical findings, the patient is homebound because of his/her inability to leave home except with aid of a supportive device and/or person AND leaving the home requires a considerable and taxing effort or is medically contraindicated. Pt req the following assistanc: Walker Home Health Nursing Orders Home Health Services Order: Joint Cutter Machine-Evaluate & Treat, Physical Therapy-Evaluate & Treat Certify Stmt I certify that this patient is under my care and that I, a nurse practitioner or a physician; a transition assistant working with me, had a face to face encounter that - meets the physician face to face encounter requirements with this patient as dated. SIENNA PARADA DO Nov 21, 2019 08:31
[2019-11-21] MEDS: ENOXAPARIN 40 MG/0.4 ML (LOVENOX) SYR SC SCH (08:42)
[2019-11-21] MEDS: TOLTERODINE LA 4 MG (DETROL) CAP PO SCH (08:42)
[2019-11-21] MEDS: ENALAPRIL 2.5 MG (VASOTEC) TAB PO SCH (08:42)
[2019-11-21] MEDS: amLODIPine 5 MG (NORVASC) TAB PO SCH (08:42)
[2019-11-21] MEDS: PANTOPRAZOLE 40 MG (PROTONIX) TAB PO SCH (08:43)
[2019-11-21] MEDS: polyethylene glycoL POWDER 17 GM (MIRALAX) PACK PO SCH (08:43)
[2019-11-21] MEDS: ALLOPURINOL 100 MG (ZYLOPRIM) TAB PO SCH (08:43)
[2019-11-21] MEDS: ZINC OXIDE 20% OINT 30 GM TUBE TOP SCH ×2 (08:43→12:52)
[2019-11-21] MEDS: CLOPIDOGREL 75 MG (PLAVIX) TABLET PO SCH (08:43)
[2019-11-21] MEDS: DULoxetine 30 MG (CYMBALTA) CAP PO SCH (08:43)
[2019-11-21] MEDS: CARVEDILOL 12.5 MG (COREG) TABLET PO SCH (08:43)
[2019-11-21] MEDS: SENNA W/DOCUSATE (SENOKOT S) TABLET PO SCH (08:43)
[2019-11-21] MEDS: DOCUSATE SODIUM 100 MG (COLACE) CAP PO SCH (08:43)
[2019-11-21] MEDS: MICONAZOLE 2% POWDER (DESENEX AF) 90 GM TOP SCH (08:44)
--- NOTE | 2019-11-21 09:50 | Physical Therapy Daily Note ---
PT Daily Note-Current Subjective Pt sitting in recliner upon arrival. Pt agrees to PT for QC scoring for DC today or tomorrow (11/21). Pain Location: No Pain Reported Mental Status Patient Orientation: Person, Place, Situation Attachments: Oxygen (2L) Transfers SCALE: Activities may be completed with or without assistive devices. 0-Mdfobqgkms-mluucun completes the activity by him/herself with no assistance from a helper. 5-Set-up or Clean-up Assistance-helper sets up or cleans up; patient completes activity. [place] assists only prior to or following the activity. 4-Supervision or Touching Assistance-helper provides verbal cues and/or touching/steadying and/or contact guard assistance as patient completes activ ity. Assistance may be provided throughout the activity or intermittently. 3-Partial/Moderate Assistance-helper does LESS THAN HALF the effort. [place] lifts, holds or supports trunk or limbs, but provides less than half the effort. 2-Substantial/Maximal Assistance-helper does MORE THAN HALF the effort. [place] lifts or holds trunk or limbs and provides more than half the effort. 2-Prustrfqo-sahfne does ALL the effort. Patient does none of the effort to complete the activity. Or, the assistance of 2 or more helpers is required for the patient to complete the activity. If activity was not attempted, code reason: 7-Patient Refused. 9-Not Applicable-not attempted and the patient did not perform the activity before the current illness, exacerbation or injury. 10-Not Attempted due to Environmental Limitations-(lack of equipment, weather restraints, etc.). 88-Not Attempted due to Medical Conditions or Safety Concerns. Roll Left & Right (QC): 5 Sit to Lying (QC): 5 Lying to Sitting/Side of Bed(Q: 5 Sit to Stand (QC): 5 Chair/Yuv-uo-Esnsg Xfer(QC): 5 Toilet Transfer (QC): 5 Look at car transfer from yesterday score from yesterday. Pt takes extended time to complete tasks. Weight Bearing Right Lower Extremity: Right Weight Bearing/Tolerated Left Lower Extremity: Left Weight Bearing/Tolerated Gait Training Does the Patient Walk?: Yes Distance: 50' x2 Walk 10 feet (QC): 5 Walk 50 ft with 2 Turns(QC): 5 Walk 150 ft (QC): 7 Walking 10ft/uneven surface-QC: 5 Gait Persons Needed: 1 Gait Assistive Device: FWW Pt given VC for sequencing. Pt fatigues, resting in WCH after amb. Wheelchair Training Does the Pt Use a Wheelchair?: Yes Wheel 50 ft with 2 turns (QC): 5 Wheel 150 ft (QC): 5 Type of Wheelchair: Manual Stair Training 1 Step (curb) (QC): 7 4 Steps (QC): 7 12 Steps (QC): 7 Pt attempts to step up on step but unable to complete. Pt reports not needing to use steps in day to day. 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 Exercises Seated Therapy Exercises: Ankle pumps, Long arc quads, Hip flexion, Kicking activity, Hip abd/add, Glut set Seated Reps: 15 Treatments TF to standing and amb. in hallway until fatigued. RB in WCH then propels WCH in hallway. After RB, pt completes Seated Ex. Pt completes QC scoring items listed above before amb short distance, RB then propels WCH to room. Pt TF to EOB then Supine to rest as ST enters room. Pt has all needs met, call light in hand. Assessment Current Status: Fair Progress Pt fatigues easily which has been ongoing, needs RB. PT Short Term Goals Short Term Goals Time Frame: Nov 22, 2019 Roll Left & Right: 6 Sit to lyin (min assist) Lying to sitting on side of be: 4 Sit to stand: 4 Chair/wmz-pn-nvmmy transfer: 4 Car transfer: 4 Walk 10 feet: 4 Walk 50 feet with two turns: 4 Does pt use a wc or scooter: Yes Wheel 50ft w/2 turns: 3 Wheel 150 feet: 3 PT Tanning Consultant Goals Usp Goals PT Tanning Consultant Goals Time Frame: Dec 06, 2019 Roll Left & Right (QC): 6 Sit to Lying (QC): 6 Lying-Sitting on Side/Bed(QC): 6 Sit to Stand (QC): 6 Chair/Rce-uz-Smeyv Xfer(QC): 6 Toilet Transfer (QC): 6 Car Transfer (QC): 5 Does the Patient Walk: Yes Walk 10 feet (QC): 6 Walk 50ft with 2 Turns (QC): 6 Walk 150 ft (QC): 4 Walking 10ft on Uneven Surface: 4 1 Step (curb) (QC): 3 4 Steps (QC): 3 12 Steps (QC): 88 Picking up an Object (QC): 3 Does the Pt use WC or Scooter?: Yes Wheel 50 feet with 2 turns (QC: 6 Type: Manual Wheel 150 feet: 6 Type: Manual PT Plan Problem List Problem List: Activity Tolerance, Functional Strength, Gait Treatment/Plan Treatment Plan: Continue Plan of Care Treatment Plan: Bed Mobility, Education, Functional Activity [place], Functional Strength, Group Therapy, Gait, Safety, Therapeutic Exercise, Transfers Treatment Duration: Dec 06, 2019 Frequency: At least 5 of 7 days/Wk (IRF) Estimated Hrs Per Day: 1.5 hours per day Patient and/or Family Agrees t: Yes Safety Risks/Education Patient Education: Gait Training, Transfer Techniques, Steps, Correct Positioning, W/C Management, Safety Issues Teaching Recipient: Patient Teaching Methods: Discussion Response to Teaching: Verbalize Understanding Time/GCodes Time In: 815 Time Out: 930 Total Billed Treatment Time: 75 Total Billed Treatment 1, GT (15m), WCH (15m), EX (20m) & FA x2 (25m) PELON GARZON INVENTORY ADMINISTRATOR Nov 21, 2019 09:50
--- NOTE | 2019-11-21 10:22 | Speech Therapy Daily Note ---
Speech Daily Progress Note Subjective Date Seen by Provider: Nov 21, 2019 Time Seen by Provider: 00:30 Patient was just returning to her room from PT when I entered her room. Dr. Parada reports her test came back negative so she will be returning to her [place] apartment today. Objective Patient completed a series of questions related to her daily routine upon her return to her apartment with 90% given minimal cuing. Assessment Assessment Current Status: Good Progress Treatment Plan Discontinue ST, Goals Met Speech Short Term Goals Short Term Goals Short Term Goals 1) The patient will complete memory tasks related to her daily needs at 80% or greater with minimal cues. 2) The patient will complete safety awareness tasks related to her daily needs at 80% or greater with minimal cues. 3) The patient will complete problem solving tasks related to her daily needs at 80% or greater with minimal cues. 4) The patient will complete word finding tasks related to her daily needs at 80% or greater with minimal cues. Speech Care Home Goals Care Home Goals Patient will improve cognitive-communication necessary for safety and daily living tasks with minimal assist. Speech-Plan Patient/Family Goals Patient/Family Goals: Patient is returning to her [place] apartment today with ST goals met. Treatment Plan Speech Therapy Treatment Plan: Discontinue ST, Goals Met Treatment Duration: Nov 16, 2019 Frequency: 4 times per week (Patient will receive skilled ST 4-5x per week) Estimated Hrs Per Day: .5 hour per day Rehab Potential: Fair Barriers to Learning: Patient's willingness to embrace her new skills Pt/Family Agrees to Plan: Yes Safety Risks/Education Teaching Recipient: Patient Teaching Methods: Discussion Response to Teaching: Verbalize Understanding Education Topics Provided: Continued safety upon her return to the [place] apartment Time Speech Therapy Time In: 09:30 Speech Therapy Time Out: 10:00 Total Billed Time: 30 Billed Treatment Time 1, EDD Whitaker Nov 21, 2019 10:22
--- NOTE | 2019-11-21 11:26 | Occupational Ther Daily Note ---
OT Current Status-Daily Note Subjective Pt alert, laying in bed when OT entered. Pt agreed to therapy. No c/o pain reported. Mental Status/Objective Patient Orientation: Person, Place, Time, Situation Attachments: IV ADL-Treatment Pt agreed to taking shower. Pt supine to EOB, SBA. Sit-stand from EOB-FWW with SBA. Pt then ambulated to bathroom using FWW, SBA. Pt transferred to shower bench with SBA, verbal cues to use grabbars in shower. While standing, pt hiked lower body down hips, CGA. Pt was then able doff pants and socks. Pt doffed shirt, verbal cue for threading oxygen out of shirt. Pt required shower bench, hand held shower head, grabbars to complete shower. Pt was able to wash arms(assist to wash under arms), upper/lower legs, chest, abdomen, chest, and buttocks. After shower, pt SPT from shower bench to w/c, SBA. After set up, pt able to don shirt(verbal cue for oxygen line). After set up, pt able to thread B feet into lower body dressing. While standing, pt able to hike lower body dressing over hips, SBA. Pt then wheeled to sink and completed oral hygiene independently, while sitting in w/c. Pt requires extra time to complete all ADL task due to fatigue quickly. Pt then SPT from w/c to recliner with SBA. [place] assisted with donning socks/compression boots. After therapy, pt sitting in recliner. Call light/phone in reach. All needs met. Therapy Code Descriptions/Definitions Functional [place] Measure: 0=Not Assessed/NA 4=Minimal Assistance 1=Total Assistance 5=Supervision or Setup 2=Maximal Assistance 6=Modified [place] 3=Moderate Assistance 7=Complete IndependenceSCALE: Activities may be completed with or without assistive devices. 9-Awmdpfannf-pbnukbt completes the activity by him/herself with no assistance from a helper. 5-Set-up or Clean-up Assistance-helper sets up or cleans up; patient completes activity. [place] assists only prior to or following the activity. 4-Supervision or Touching Assistance-helper provides verbal cues and/or touching/steadying and/or contact guard assistance as patient completes activity. Assistance may be provided throughout the activity or intermittently. 3-Partial/Moderate Assistance-helper does LESS THAN HALF the effort. [place] lifts, holds or supports trunk or limbs, but provides less than half the effort. 2-Substantial/Maximal Assistance-helper does MORE THAN HALF the effort. [place] lifts or holds trunk or limbs and provides more than half the effort. 0-Wbqumvhfk-lwtmmu does ALL the effort. Patient does none of the effort to complete the activity. Or, the assistance of 2 or more helpers is required for the patient to complete the activity. If activity was not attempted, code reason: 7-Patient Refused. 9-Not Applicable-not attempted and the patient did not perform the activity before the current illness, exacerbation or injury. 10-Not Attempted due to Environmental Limitations-(lack of equipment, weather restraints, etc.). 88-Not Attempted due to Medical Conditions or Safety Concerns. Eating (QC): 6 Oral Hygiene (QC): 6 Bathing Location: L Upper Leg, R Upper Leg, L Lower Leg (including foot), R Lower Leg (including foot), Chest, Abdomen, Buttocks, Perineal Area Shower/Bathe Self (QC): 3 Upper Body Dressing (QC): 5 Lower Body Dressing (QC): 4 On/Off Footwear: 2 (Pt able to doff socks, assist for donning socks and compr ession boots.) Toileting Hygiene (QC): 4 (per clincial judgement) Toilet Transfer (QC): 4 (per clinical judgement ) OT Group Home Goals Group Home Goals Time Frame: Dec 06, 2019 Eating (QC): 6 (met, per clinical judgement) Oral Hygiene (QC): 6 (met) Toileting Hygiene (QC): 6 (not met, SBA) Shower/Bathe Self (QC): 4 (not met, pt required assist to cleanse under arm.) Upper Body Dressing (QC): 5 (met) Lower Body Dressing (QC): 5 (not met, pt requires SBA when hiking lower body dressing over hips.) On/Off Footwear (QC): 5 (not met) Additional Goals: 1-Demonstrate ADL Tasks, 2-Verbalize Understanding, 3- ImproveStrength/[place] 1=Demonstrate adherence to instructed precautions during ADL tasks. 2=Patient will verbalize/demonstrate understanding of assistive devices/modifications for ADL. 3=Patient will improve strength/tolerance for activity to enable patient to perform ADL's. OT Education/Plan Problem List/Assessment Assessment: Decreased Activ Tolerance, Decreased Safety Aware, Impaired I ADL's, Impaired Self-Care Skills Discharge Recommendations Plan/Recommendations: Continue POC Treatment Plan/Plan of Care Patient would benefit from OT for education, treatment and training to promote independence in ADL's, mobility, safety and/or upper extremity function for ADL's. Plan of Care: ADL Retraining, Functional Mobility, Group Exercise/Act as Ind, UE Funct Exercise/Act Treatment Duration: Dec 06, 2019 Frequency: At least 5 of 7 days/Wk (IRF) Estimated Hrs Per Day: 1.5 hours per day Agreement: Yes Rehab Potential: Fair Time/GCodes Start Time: 10:00 Stop Time: 11:30 Total Time Billed (hr/min): 90 Billed Treatment Time 1 visit-ADL 6 (90 mins) MORELIA LESLIE Nov 21, 2019 11:26
[2019-11-21] MEDS: fluCOnazole (DIFLUCAN) 100 MG TAB PO SCH (12:52)
[2019-11-21] MEDS: HYDROXYCHLOROQUINE 200 MG (PLAQUENIL) TAB PO SCH (12:52)
[2019-11-21 13:00] VITALS: BP 107/50
--- NOTE | 2019-11-21 13:21 | NUR ---
CM/SS DISCHARGE [facility] Director Jade came this a.m. and visited patient at bedside. [facility] provided the negative Covid screen results as well as the discharge packet. Jade approved patient return to [facility] via their transport scheduled for 1300. Facility understands to bring patient's portable 02 and a wheelchair. They will call the unit and patient will be taken down to them as a courtesy due to Covid screening/entry process. PT/OT orders are included in patient post hospital care plan. Jade and [facility] will set this up through their contract therapists. Spoke to son Herman Shetty by phone to update.
--- NOTE | 2019-11-21 23:41 | Wound Care Assessment ---
Wound Care Assessment Date Seen by Provider: Nov 21, 2019 Time Seen by Provider: 07:45 Chief Complaint Bilateral buttock ulcers. HPI The patient is a 74 year old female admitted for acute kidney injury and noted to have bilateral buttock ulcers. They are irregular and appear to be primarily moisture related. She now has a collier catheter which is protecting the areas. Will order Zinc oxide cream TID and follow. 11/16/19 Interval Note: The bilateral MASD buttock injuries are much improved with topical ZnO. She is urged to lie on her side as much as possible to allow the area to air dry. She is to have Collier cath out today. 11/21/19 Interval Note: The bilateral buttock wounds are healed. she does not need outpatient follow-up. She is urged to be proactive in reporting urinary incontinence at her facility. Past Medical History: Admits Heart Disease (COPD, Obstructive sleep apnea, Hypertension, Rheumatoid arthritis, Immunoglobulin deficiency.) Smoking Status: Former Smoker Recreational Drug Use: No Alcohol Use: Denies Use Exam Vital Signs Date Time Temp Pulse Resp B/P (MAP) Pulse Ox O2 Delivery O2 Flow Rate FiO2 11/21/19 13:00 37.0 71 18 107/50 95 Nasal Cannula 2.50 11/19/19 09:09 28 Capillary Refill : Less Than 3 Seconds Assessment/Plan/Dx 1. Bilateral buttock ulcers, primarily moisture associated skin damage, much improved with ZnO treatment. 2. UTI, with dehydration, confusion LEIGHANN. 3. Obesity, debility. Plan: ZnOxide dressings, reposition, mobilize. JORGITO ADAMS MD Nov 21, 2019 23:41
--- NOTE | 2019-11-22 09:14 | Therapy Team Discharge Summary ---
Therapy Discharge Summary Discharge Recommendations Date of Discharge Nov 21, 2019 at 13:20 Physical Therapy Patient came to rehab with debility. Upon evaluation patient performed bed mobility with SBA, required mod assist with sit to supine (needs assist with both legs), min assist for supine to sit and car transfer, ambulated 20' with a rolling walker with CGA (including 10' over an uneven surface), and was dependent with WC mobility. Patient has been performing bed mobility and transfer training, balance and endurance training, functional strengthening, stair training, gait training, and education. Patient has made some progress but has only met her extermination supervisor goal for a car transfer. Now, patient performs bed mobility and transfers with setup, car transfer with setup, ambulates 50' with a rolling walker with setup (including 50' with at least 2 turns of 90 degrees and 10' over an uneven surface), and propels a manual WC 150' with setup, no stairs. Patient was discharged from this facility yesterday and will be discharged from PT at this time. Occupational Therapy Decreased Activ Tolerance, Decreased Safety Aware, Impaired I ADL's, Impaired Self-Care Skills PT Home Appliance Technician Goals Home Appliance Technician Goals PT Retirement Goals Time Frame: Dec 06, 2019 Roll Left to Right (QC): 6 Sit to Lying (QC): 6 Lying-Sitting on Side/Bed(QC): 6 Sit to Stand (QC): 6 Chair/Xnu-lv-Eblxu Xfer(QC): 6 Car Transfer (QC): 5 Does the Patient Walk: Yes Walk 10 feet (QC): 6 Walk 10ft-Uneven Surface(QC): 4 Walk 50ft with 2 Turns (QC): 6 Walk 150 ft (QC): 4 Does the Pt use WC or Scooter?: Yes Wheel 50 feet with 2 turns (QC: 6 1 Step (curb) (QC): 3 4 Steps (QC): 3 12 Steps (QC): 88 Picking up an Object (QC): 3 OT Retirement Goals Retirement Goals Time Frame: Dec 06, 2019 Eating (QC): 6 (met, per clinical judgement) Oral Hygiene (QC): 6 (met) Shower/Bathe Self (QC): 4 (not met, pt required assist to cleanse under arm.) Upper Body Dressing (QC): 5 (met) Lower Body Dressing (QC): 5 (not met, pt requires SBA when hiking lower body d ressing over hips.) On/Off Footwear (QC): 5 (not met) Toileting Hygiene (QC): 6 (not met, SBA) Toilet/Commode Transfer (QC): 6 Additional Goals: 1-Demonstrate ADL Tasks, 2-Verbalize Understanding, 3- ImproveStrength/[place] 1=Demonstrate adherence to instructed precautions during ADL tasks. 2=Patient will verbalize/demonstrate understanding of assistive devices/modifications for ADL. 3=Patient will improve strength/tolerance for activity to enable patient to perform ADL's. Speech Retirement Goals Home Appliance Technician Goals Patient will improve cognitive-communication necessary for safety and daily living tasks with minimal assist. SANGEETA ROMANO PT Nov 22, 2019 09:14
--- NOTE | 2019-11-24 09:55 | Therapy Team Discharge Summary ---
Therapy Discharge Summary Discharge Recommendations Date of Discharge Nov 21, 2019 at 13:20 Occupational Therapy Pt admitted to ARU with debility. Prior to admission, pt resided at [facility] where she received assistance with ADLs. At evaluation, pt was independent with eating, set up oral care, mod A showering, SBA upper body dressing, mod A lower body dressing, mod A footwear, and max A toileting. OT txs focused on increasing safety and independence with ADLs and functional mobility, and increasing BUE strength and functional endurance. At discharge, pt was independent with eating and oral care, min A showering, set up upper body dressing, SBA lower body dressing, max A footwear, and SBA toileting. Pt made progress towards goals, meeting independent level of eating and oral care. Pt made functional progress towards other goals but did not attain. Pt discharged from facility, d/c from OT at this time. Decreased Activ Tolerance, Decreased Safety Aware, Impaired I ADL's, Impaired Self-Care Skills PT Jail Goals Jail Goals PT Turbine Operator Goals Time Frame: Dec 06, 2019 Roll Left to Right (QC): 6 Sit to Lying (QC): 6 Lying-Sitting on Side/Bed(QC): 6 Sit to Stand (QC): 6 Chair/Aaf-dj-Ulajb Xfer(QC): 6 Car Transfer (QC): 5 Does the Patient Walk: Yes Walk 10 feet (QC): 6 Walk 10ft-Uneven Surface(QC): 4 Walk 50ft with 2 Turns (QC): 6 Walk 150 ft (QC): 4 Does the Pt use WC or Scooter?: Yes Wheel 50 feet with 2 turns (QC: 6 1 Step (curb) (QC): 3 4 Steps (QC): 3 12 Steps (QC): 88 Picking up an Object (QC): 3 OT Jail Goals Turbine Operator Goals Time Frame: Dec 06, 2019 Eating (QC): 6 (met, per clinical judgement) Oral Hygiene (QC): 6 (met) Shower/Bathe Self (QC): 4 (not met, pt required assist to cleanse under arm.) Upper Body Dressing (QC): 5 (met) Lower Body Dressing (QC): 5 (not met, pt requires SBA when hiking lower body dressing over hips.) On/Off Footwear (QC): 5 (not met) Toileting Hygiene (QC): 6 (not met, SBA) Toilet/Commode Transfer (QC): 6 Additional Goals: 1-Demonstrate ADL Tasks, 2-Verbalize Understanding, 3- ImproveStrength/[place] 1=Demonstrate adherence to instructed precautions during ADL tasks. 2=Patient will verbalize/demonstrate understanding of assistive devices/modific ations for ADL. 3=Patient will improve strength/tolerance for activity to enable patient to perform ADL's. Speech Jail Goals Turbine Operator Goals Patient will improve cognitive-communication necessary for safety and daily living tasks with minimal assist. SHADI COHEN OT Nov 24, 2019 09:55
== END 2019-11-21 13:20 | disposition home health service (06) | DRG 683 ==
PROVIDERS: ADMIT Internal Medicine; ATTEND Internal Medicine
DX: N17.9 Acute kidney failure, unspecified (principal); I13.0 Hypertensive heart and chronic kidney disease with heart failure and stage 1 through stage 4 chronic kidney disease, or unspecified chronic kidney disease; N39.0 Urinary tract infection, site not specified; E66.2 Morbid (severe) obesity with alveolar hypoventilation; Z68.41 Body mass index [BMI] 40.0-44.9, adult; L98.411 Non-pressure chronic ulcer of buttock limited to breakdown of skin; J44.9 Chronic obstructive pulmonary disease, unspecified; F03.90 Unspecified dementia, unspecified severity, without behavioral disturbance, psychotic disturbance, mood disturbance, and anxiety; N18.9 Chronic kidney disease, unspecified; I50.9 Heart failure, unspecified; M06.9 Rheumatoid arthritis, unspecified; E11.40 Type 2 diabetes mellitus with diabetic neuropathy, unspecified; I89.0 Lymphedema, not elsewhere classified; K21.9 Gastro-esophageal reflux disease without esophagitis; G89.29 Other chronic pain; F41.9 Anxiety disorder, unspecified; F32.9 Major depressive disorder, single episode, unspecified; E78.00 Pure hypercholesterolemia, unspecified; Z20.828 Contact with and (suspected) exposure to other viral communicable diseases; Z87.891 Personal history of nicotine dependence; Z91.19 Patient's noncompliance with other medical treatment and regimen; Z99.81 Dependence on supplemental oxygen; Z85.3 Personal history of malignant neoplasm of breast; Z87.01 Personal history of pneumonia (recurrent); Z90.89 Acquired absence of other organs; Z90.49 Acquired absence of other specified parts of digestive tract; Z90.710 Acquired absence of both cervix and uterus
CPT/HCPCS: 36415; 80053; 85025; 85027; 87635; 94640; 94664; 94760

== ENCOUNTER 2019-11-25 21:48 | Inpatient (IN) | payer MEDICARE, OTHER ==
[~2019-11-25] VITALS: Ht 165 cm; Wt 112.8 kg
[~2019-11-25 21:48] MED LIST changes: +AMLO5TAB9 PO; +MICO90PO TOP; +NYST1000 PO
[2019-11-25] MEDS ORDERED: LACTATED RINGERS 1,000 ML IV ONE (22:02)
[2019-11-25] MEDS ORDERED: MEROPENEM 1,000 MG in WATER (STERILE) FOR INJECTION 20 ML IV ONE (22:15)
[2019-11-25] MEDS ORDERED: ONDANSETRON 4 MG/2 ML (SDV) Z0FRAN IV PRN (22:15)
--- NOTE | 2019-11-25 22:18 | ED Respiratory ---
General Stated Complaint: AMS Source: patient Exam Limitations: no limitations History of Present Illness Date Seen by Provider: Nov 25, 2019 Time Seen by Provider: 21:55 Initial Comments Patient presents ER by EMS from [facility] with chief complaint of altered mental status for the past one day. She is incontinent of urine which is unusual. At baseline she is alert, oriented and ambulates. Patient's unable to supply any useful history. Blood sugar was normal and her shirt is covered in vomitus when EMS arrived. She said she has swelling of her legs which is worse and usual and is on chronic 2 L oxygen by nasal cannula. Patient states she wishes to be a DO NOT RESUSCITATE, allow natural . Allergies and Home Medications Allergies Coded Allergies: NSAIDS (Non-Steroidal Anti-Inflamma (Unverified Allergy, Mild, 03/18/09) Influenza Virus Vaccines (Verified Allergy, Unknown, 12/07/18) Penicillins (Verified Allergy, Unknown, 01/03/06) Sulfa (Sulfonamide Antibiotics) (Verified Allergy, Unknown, 01/03/06) aspirin (Verified Allergy, Unknown, 01/03/06) atorvastatin (Verified Allergy, Unknown, 12/07/18) carbamazepine (Verified Allergy, Unknown, 09/20/06) cephalexin (Verified Allergy, Unknown, 01/03/06) iodine (Verified Allergy, Unknown, 01/03/06) latex (Unverified Allergy, Unknown, 06/21/13) meloxicam (Verified Allergy, Unknown, 12/07/18) peanut (Verified Allergy, Unknown, 12/07/18) Home Medications Allopurinol 100 Mg Tablet, 100 MG PO DAILY, (Reported) Amlodipine Besylate 5 Mg Tablet, 5 MG PO DAILY Prescribed by: SIENNA MADERA on 11/21/19 0827 Ascorbate Calcium 500 Mg Tablet, 500 MG PO DAILY, (Reported) Bumetanide 2 Mg Tablet, 2 MG PO DAILY PRN for WEIGHT GAIN, (Reported) USE IF GAINED MORE THAN 5 POUNDS A DAY Carvedilol 12.5 Mg Tablet, 12.5 MG PO BID, (Reported) Cetirizine HCl 10 Mg Tablet, 10 MG PO DAILY, (Reported) Cholecalciferol (Vitamin D3) 50 Mcg Tablet, 50 MCG PO HS, (Reported) Clopidogrel Bisulfate 75 Mg Tablet, 75 MG PO DAILY, (Reported) Cranberry Fruit 400 Mg Tablet, 400 MG PO BID, (Reported) Duloxetine HCl 60 Mg Capsule.dr, 60 MG PO DAILY, (Reported) Enalapril Maleate 2.5 Mg Tablet, 2.5 MG PO DAILY, (Reported) Esomeprazole Magnesium 40 Mg Cap, 40 MG PO HS, (Reported) Ferrous Sulfate 325 Mg Tablet, 325 MG PO DAILY, (Reported) Fluticasone Propionate 16 Gm Marble.susp, 1 SPRAY NS DAILY PRN for ALLERGIES, (Reported) Fluticasone/Salmeterol 1 Each Blst.w.dev, 1 PUFF IH DAILY, (Reported) Gabapentin 300 Mg Capsule, 300 MG PO HS, (Reported) Guaifenesin/Codeine Phosphate 473 Ml Liquid, 5 ML PO Q6H PRN for COUGH, (Reported) Guaifenesin/Dextromethorphan 5 Ml Syrup, 5 ML PO Q6H PRN for COUGH, (Reported) Hydrocortisone Butyrate/Emoll 15 Gm Cream..g., 1 APPLIC TP BID PRN for RASH, (Reported) Hydroxychloroquine Sulfate 200 Mg Tablet, 200 MG PO 1200,1700, (Reported) TAKES WITH FOOD Ipratropium [place] 0.2 Mg/1 Ml Solution, 0.2 MG NEB TID PRN for SHORTNESS OF BREATH, (Reported) Ipratropium/Albuterol Sulfate 3 Ml Ampul.neb, 3 ML NEB 0800,1600, (Reported) Lactulose 10 Gm/15 Ml Solution, 30 ML PO TID PRN for CONSTIPATION-3RD LINE, (Reported) Menthol/Lanolin/Calamine/Znox 71 Gm Oint, 1 APPLIC TP UD PRN for IRRITATION, (Reported) APPLY TO JARETT AREA Miconazole Nitrate 90 Gm Powder, 0 GM TOP BID Prescribed by: SIENNA MADERA on 11/21/19826 Montelukast Sodium 10 Mg Tablet, 10 MG PO HS, (Reported) Nitrofurantoin Macrocrystal 100 Mg Capsule, 100 MG PO 1700, (Reported) TAKE WITH DINNER Nystatin 100,000 Unit/1 Ml Oral.susp, 5 ML PO Q6HR Prescribed by: SIENNA MADERA on 11/21/19826 Oxycodone HCl 20 Mg Tablet, 20 MG PO Q6H PRN for PAIN-SEVERE, (Reported) Oxycodone HCl 20 Mg Tablet, 20 MG PO 0600,1400,2200, (Reported) Potassium Chloride 10 Meq Capsule.er, 20 MEQ PO 1200,1700, (Reported) TAKES 2 (10MEQ) CAPSULES TAKES WITH FOOD Simvastatin 20 Mg Tablet, 20 MG PO HS, (Reported) Tolterodine Tartrate 4 Mg Cap, 4 MG PO DAILY, (Reported) Topiramate 25 Mg Tablet, 25 MG PO HS, (Reported) Triamcinolone Acet 15 Gm Cr, 1 APPLIC TP BID PRN for REDNESS, (Reported) APPLY TO LEFT LEG Patient Home Medication List Home Medication List Reviewed: Yes Review of Systems Review of Systems Constitutional: No chills, No fever; malaise, weakness EENTM: No ear discharge, No hearing loss, No ear pain Respiratory: cough, short of breath Cardiovascular: No Hx of Intervention, No palpitations Gastrointestinal: No abdominal pain, No constipation, No diarrhea; nausea, vomiting Genitourinary: No discharge; dysuria; No frequency; incontinence Musculoskeletal: No back pain, No joint pain All Other Systems Reviewed Negative Unless Noted: Yes Past Sfjuclp-Vajwbf-Lkpena Hx Patient Social History Alcohol Use: Denies Use Recreational Drug Use: No Smoking Status: Former Smoker Type Used: Cigarettes Former Smoker, Quit: Mar 25, 1994 2nd Hand Smoke Exposure: No Recent Hopitalizations: No Immunizations Up To Date Tetanus Booster (TDap): Unknown PED Vaccines UTD: No Date of Pneumonia Vaccine: Sep 22, 2013 Date of Influenza Vaccine: Nov 22, 2017 Seasonal Allergies Seasonal Allergies: No Past Medical History Surgeries: Yes (MULT KNEE, BACK FUSION, NASAL SURGERY, ROTATOR CUFF REPAIR, RT BREAST ) Adenoidectomy, Appendectomy, Hysterectomy, Lumpectomy, Orthopedic, Tonsillectomy, Tubal Ligation Respiratory: Yes (pulmoanary edema) Asthma, Sleep Apnea, COPD Currently Using CPAP: No Currently Using BIPAP: No Cardiac: Yes (CHF) Chronic Edema/Swelling, High Cholesterol, Hypertension Neurological: Yes Dementia, Neuropathy Reproductive Disorders: No Female Reproductive Disorders: Denies Sexually Transmitted Disease: No HIV/AIDS: No Genitourinary: Yes (chronic kidney dz) Renal Failure Gastrointestinal: Yes Gastroesophageal Reflux, Gall Bladder Disease Musculoskeletal: Yes (KNEE SURGERIES, BACK SURGERY) Degenerate Disk Disease, Arthritis, Rheumatoid Arthritis, Chronic Back Pain Endocrine: No HEENT: Yes (cataracts removed, ) Loss of Vision: Bilateral Hearing Impairment: Denies Cancer: Yes Breast Did You Recieve Any Treatments: No What Type of Treatment Did You: Surgical Intervention Psychosocial: Yes Anxiety, Depression Integumentary: No Blood Disorders: Yes (IMMUNOGLOBULIN DEFICIENCY) Adverse Reaction/Blood Tranf: No Family Medical History Cancer G8 SISTER Congestive heart failure 19 FATHER Family history: Cardiovascular disease 19 FATHER 19 MOTHER G8 BROTHER Family history: Coronary thrombosis 19 FATHER 19 MOTHER Family history: Hypertension 19 MOTHER Stroke 19 MOTHER G8 BROTHER No Pertinent Family Hx Physical Exam Vital Signs - First Documented 11/25/19 22:20 Pulse Ox 94 O2 Delivery OxyMask O2 Flow Rate 10.00 FiO2 94 Capillary Refill : Height: 5'4.00" Weight: 270lbs. 9.0oz. 122.163787dw; 42.96 BMI Method:Stated General Appearance: WD/WN, moderate distress Eyes: Bilateral Eye Normal Inspection, Bilateral Eye PERRL, Bilateral Eye EOMI HEENT: PERRL/EOMI, pharynx normal Neck: full range of motion, supple, normal inspection Respiratory: respiratory distress (zhte-qw-hkheonqz on her baseline 3 L by nasal cannula), rhonchi, wheezing Cardiovascular: normal peripheral pulses, regular rate, rhythm Gastrointestinal: normal bowel sounds, non tender, soft Neurologic/Psychiatric: alert, normal mood/affect, other (oriented to person but not time place or situation) Skin: other (erythematous chronic lymphedema bilateral lower extremities) Focused Exam Sepsis Stage: Sepsis Possible Source: Genitouriary Lactate Level 11/25/19 22:20: Lactic Acid Level 0.75 Time of Focused Exam: 23:39 Respiratory: No Accessory Muscle Use, No Respiratory Distress (on baseline oxygen), Rhonci Cardiovascular: Regular Rate, Rhythm, No Edema, Normal Peripheral Pulses Capillary Refill: Less Than 3 Seconds Peripheral Pulses: 1+ Radial Pulses (R), 1+ Radial Pulses (L) Skin: warm/dry; No rash Lactic Acid Level Laboratory Tests Test 11/25/19 22:20 Lactic Acid Level 0.75 MMOL/L (0.50-2.00) Within 3hrs of presentation: Admin fluids, Admin 30ml/kg IBW due to BMI>30, Admin ABX, Blood cultures prior to ABX's, Focus exam, Lactate level Progress/Results/Core Measures Suspected Sepsis SIRS Temperature: Pulse: Respiratory Rate: Laboratory Tests 11/25/19 22:20: White Blood Count 11.1H Blood Pressure / Mean: 11/25/19 22:20: Lactic Acid Level 0.75 Laboratory Tests 11/25/19 22:20: Creatinine 2.26H, INR Comment 1.0, Platelet Count 135, Total Bilirubin 1.2H Results/Orders Lab Results Laboratory Tests Test 11/25/19 22:20 11/25/19 22:35 Range/Units White Blood Count 11.1 H 4.3-11.0 10^3/uL Red Blood Count 3.60 L 3.80-5.11 10^6/uL Hemoglobin 11.4 L 11.5-16.0 g/dL Hematocrit 36 35-52 % Mean Corpuscular Volume 99 80-99 fL Mean Corpuscular Hemoglobin 32 25-34 pg Mean Corpuscular Hemoglobin Concent 32 32-36 g/dL Red Cell Distribution Width 13.6 10.0-14.5 % Platelet Count 135 130-400 10^3/uL Mean Platelet Volume 12.0 9.0-12.2 fL Immature Granulocyte % (Auto) 0 % Neutrophils (%) (Auto) 80 H 42-75 % Lymphocytes (%) (Auto) 9 L 12-44 % Monocytes (%) (Auto) 9 0-12 % Eosinophils (%) (Auto) 1 0-10 % Basophils (%) (Auto) 0 0-10 % Neutrophils # (Auto) 9.0 H 1.8-7.8 10^3/uL Lymphocytes # (Auto) 1.0 1.0-4.0 10^3/uL Monocytes # (Auto) 1.0 0.0-1.0 10^3/uL Eosinophils # (Auto) 0.1 0.0-0.3 10^3/uL Basophils # (Auto) 0.0 0.0-0.1 10^3/uL Immature Granulocyte # (Auto) 0.1 0.0-0.1 10^3/uL Prothrombin Time 13.3 12.2-14.7 SEC INR Comment 1.0 0.8-1.4 Activated Partial Thromboplast Time 31 24-35 SEC Blood Gas Puncture Site RIGHT RADIAL Blood Gas Patient Temperature 38.0 Arterial Blood pH 7.30 *L 7.37-7.43 Arterial Blood Partial Pressure CO2 61 H 35-45 MMHG Arterial Blood Partial Pressure O2 38 *L 79-93 MMHG Arterial Blood HCO3 29 H 23-27 MMOL/L Arterial Blood Total CO2 30.5 21.0-31.0 MMOL/L Arterial Blood Oxygen Saturation 51 L 94-100 % Arterial Blood Base Excess 3.1 H -2.5-2.5 MMOL/L Izaiah Test YES-POS Blood Gas Ventilator Setting NO Blood Gas Inspired Oxygen 4L Sodium Level 138 135-145 MMOL/L Potassium Level 4.5 3.6-5.0 MMOL/L Chloride Level 103 98-107 MMOL/L Carbon Dioxide Level 24 21-32 MMOL/L Anion Gap 11 5-14 MMOL/L Blood Urea Nitrogen 31 H 7-18 MG/DL Creatinine 2.26 H 0.60-1.30 MG/DL Estimat Glomerular Filtration Rate 21 BUN/Creatinine Ratio 14 Glucose Level 96 70-105 MG/DL Lactic Acid Level 0.75 0.50-2.00 MMOL/L Calcium Level 8.8 8.5-10.1 MG/DL Corrected Calcium 9.3 8.5-10.1 MG/DL Total Bilirubin 1.2 H 0.1-1.0 MG/DL Aspartate Amino Transf (AST/SGOT) 57 H 5-34 U/L Alanine Aminotransferase (ALT/SGPT) 28 0-55 U/L Alkaline Phosphatase 49 40-136 U/L Troponin I 0.117 H <0.028 NG/ML B-Type Natriuretic Peptide 67.9 <100.0 PG/ML Total Protein 5.5 L 6.4-8.2 GM/DL Albumin 3.4 3.2-4.5 GM/DL Urine Color YELLOW Urine Clarity CLOUDY Urine pH 5.5 5-9 Urine Specific Korbel 1.020 1.016-1.022 Urine Protein NEGATIVE NEGATIVE Urine Glucose (UA) NEGATIVE NEGATIVE Urine Ketones NEGATIVE NEGATIVE Urine Nitrite NEGATIVE NEGATIVE Urine Bilirubin NEGATIVE NEGATIVE Urine Urobilinogen 0.2 < = 1.0 MG/DL Urine Leukocyte Esterase 3+ H NEGATIVE Urine RBC (Auto) 1+ H NEGATIVE Urine RBC 2-5 H /HPF Urine WBC >100 H /HPF Urine Crystals NONE /LPF Urine Bacteria LARGE H /HPF Urine Casts NONE /LPF Urine Mucus NEGATIVE /LPF Urine Culture Indicated CULTURE PENDING My Orders Orders - KERRY CARRILLO Catheter(Urinary) Insert & Ass (11/25/19 22:02) Cbc With Automated Diff (11/25/19 22:02) Comprehensive Metabolic Panel (11/25/19 22:02) Blood Culture (11/25/19 22:02) Sputum Culture (11/25/19:) Urinalysis (11/25/19 22:) Urine Culture (11/25/19 22:02) Protime With Inr (11/25/19 22:) Partial Thromboplastin Time (11/25/19 22:02) Chest 1 View, Ap/Pa Only (11/25/19 22:02) Ed Iv/Invasive Line Start (11/25/19 22:02) Ed Iv/Invasive Line Start (11/25/19 22:02) Ekg Tracing (11/25/19:) Troponin I (11/25/19:) Vital Signs Adult Sepsis Patie Q15M (11/25/19 22:02) Ondansetron Injection (Zofran Injectio (11/25/19 22:15) O2 (11/25/19 22:02) Remove Rings In Anticipation O (11/25/19 22:02) Lactic Acid Analyzer (11/25/19 22:02) Lactated Ringers (Lr 1000 Ml Iv Solution (11/25/19 22:02) Vancomycin Injection (Vancomycin Injecti (11/25/19 22:15) BNP (11/25/19 22:02) Meropenem (Merrem 1000 Mg) (11/25/19 22:15) Arterial Blood Gas (11/25/19 22:16) Heparin Drip 88946 Unit/500ml (Heparin (11/25/19 23:20) Heparin (Bolus Per Protocol) (Heparin (B (11/25/19 23:30) Metoprolol Succinate (Xl) Tab (Toprol Xl (11/25/19 23:30) Arterial Blood Gas (11/25/19 23:47) Medications Given in ED Current Medications Medications Dose Ordered Sig/Jaguar Route Start Time Stop Time Status Last Admin Dose Admin Lactated Ringer's 1,000 ml @ 0 mls/hr Q0M ONCE IV 11/25/19 22:02 11/25/19 22:17 DC 11/25/19 22:51 999 MLS/HR Meropenem 1000 mg/ Sterile Water 20 ml @ 240 mls/hr ONCE ONCE IV 11/25/19 22:15 11/25/19 22:19 DC 11/25/19 22:50 240 MLS/HR Ondansetron HCl 8 mg PRN PRN IV 11/25/19 22:15 11/25/19 22:50 DC 11/25/19 22:50 8 MG Vital Signs/I&O 11/25/19 22:20 Pulse Ox 94 O2 Delivery OxyMask O2 Flow Rate 10.00 FiO2 94 Capillary Refill : Progress Note : Time: 23:24 Progress Note patient smells like urinary incontinence probably a UTI. She has vomitus all ove r her front. She does not contribute any history but she does say she's not having any pain. She has an elevated troponin and her chest x-ray is not largely change from previous chest x-rays although it is a difficult study. We have covered her with meropenem and vancomycin for possible aspiration pneumonia as well as would cover for urinary tract infection. We will not give aspirin because of documented allergy. She is comfortable this time and her blood pressure is 139/101. Suspect her mildly elevated troponin is related to her sepsis from UTI. Possibly she has a aspiration pneumonia. Cautiously give her fluids based on an ideal body weight of 189 pounds adjusted. 20 mL/kg. Wheezing is gone after DuoNeb. She still has rhonchorous breath sounds. Be very cautious with IV fluids. ECG Initial ECG Impression Date: Nov 25, 2019 Initial ECG Impression Time: 22:52 Initial ECG Rate: 68 Initial ECG Rhythm: Normal Sinus Initial ECG Intervals: Normal Initial ECG Impression: Normal Initial ECG Comparisson: Unchanged Comment No clinically relevant ST elevation or depression. Nonspecific interventricular conduction delay Diagnostic Imaging Diagonstic Imaging: Xray Plain Films/CT/US/NM/MRI: chest Comments No acute change from previous x-rays. No overt infiltrates. Reviewed: Reviewed by Me Departure Communication (Admissions) Time/Spoke to Admitting Phy: 23:[address] Madera and she accepts the patient to ICU Time/Spoke to Consulting Phy: 23:25 discussed the case with Dr. Busch and he does not want heparin because he feels that the marginal elevation of troponin is more related to the sepsis. He agrees with aspirin if she can tolerate it and Toprol-XL 25 mg daily. Impression Primary Impression: Sepsis Qualified Codes: A41.9 - Sepsis, unspecified organism; R65.20 - Severe sepsis without septic shock; N17.9 - Acute kidney failure, unspecified Additional Impressions: UTI (urinary tract infection) Qualified Codes: N30.01 - Acute cystitis with hematuria Acute kidney insufficiency Elevated troponin suspected aspiration pneumonia Delirium due to another medical condition Disposition: HOME, SELF-CARE Condition: Stable Admissions Decision to Admit Reason: Admit from ER (General) Decision to Admit/Date: Nov 25, 2019 Time/Decision to Admit Time: 22:37 Departure-Patient Inst. Referrals: SIENNA MADERA DO (PCP/Family) Primary Care Physician KERRY CARRILLO Nov 25, 2019 22:18
[2019-11-25 22:37] LABS: BASOPHILS % (AUTO) 0 % (0-10); EOSINOPHILS # (AUTO) 0.1 10^3/uL (0.0-0.3); EOSINOPHILS % (AUTO) 1 % (0-10); HEMATOCRIT 36 % (35-52); HEMOGLOBIN 11.4 g/dL (11.5-16.0); LYMPHOCYTES % (AUTO) 9 % (12-44); MEAN CORPUSCULAR HEMOGLOBIN 32 pg (25-34); MEAN CORPUSCULAR HGB CONC 32 g/dL (32-36); MEAN CORPUSCULAR VOLUME 99 fL (80-99); MONOCYTES % (AUTO) 9 % (0-12); NEUTROPHILS % (AUTO) 80 % (42-75); PLATELET COUNT 135 10^3/uL (130-400); WHITE BLOOD COUNT 11.1 10^3/uL (4.3-11.0)
[2019-11-25 22:39] LABS: BILIRUBIN,URINE NEGATIVE (NEGATIVE); CLARITY,URINE CLOUDY; COLOR,URINE YELLOW; GLUCOSE, URINE (UA) NEGATIVE (NEGATIVE); KETONES,URINE NEGATIVE (NEGATIVE); LEUKOCYTE ESTERASE ,URINE 3+ (NEGATIVE); NITRITE,URINE NEGATIVE (NEGATIVE); PH,URINE 5.5 (5-9); PROTEIN,URINE NEGATIVE (NEGATIVE)
[2019-11-25 22:50] LABS: ALBUMIN 3.4 GM/DL (3.2-4.5); POTASSIUM 4.5 MMOL/L (3.6-5.0)
[2019-11-25] MEDS: VANCOMYCIN INJECTION 1,000 MG in NS (IVPB) 250 ML IV SCH ×2 (22:50→23:48)
[2019-11-25 22:51] LABS: CALCIUM 8.8 MG/DL (8.5-10.1)
[2019-11-25 22:53] LABS: TOTAL PROTEIN 5.5 GM/DL (6.4-8.2)
[2019-11-25 22:53] LABS: BACTERIA,URINE LARGE /HPF; WBC,URINE >100 /HPF
[2019-11-25 22:54] LABS: BILIRUBIN,TOTAL 1.2 MG/DL (0.1-1.0); PROTHROMBIN TIME PATIENT 13.3 SEC (12.2-14.7)
[2019-11-25 22:56] LABS: CREATININE SERUM 2.26 MG/DL (0.60-1.30)
[2019-11-25] MEDS ORDERED: HEParin DRIP 25000 UNIT/500ML 500 ML IV SCH (23:20)
[2019-11-25] MEDS ORDERED: HEParin 1000 UNIT/ML (10ML VIAL) FOR BOLUS IV PRN (23:30)
[2019-11-25 23:53] LABS: ABG BASE EXCESS 3.1 MMOL/L (-2.5-2.5); ABG OXYGEN SATURATION 51 % (94-100); ABG PCO2 61 MMHG (35-45); ABG TCO2 30.5 MMOL/L (21.0-31.0)
[2019-11-25 23:55] LABS: ABG PO2 38 MMHG (79-93); ALLENS TEST YES-POS; INSPIRED O2 4L; VENTILATOR NO
[2019-11-26] VITALS (22 sets, daily range): BP systolic 84–171; BP diastolic 53–112
[2019-11-26 00:21] LABS: ABG BASE EXCESS 2.4 MMOL/L (-2.5-2.5); ABG OXYGEN SATURATION 42 % (94-100); ABG PCO2 62 MMHG (35-45); ABG TCO2 30.5 MMOL/L (21.0-31.0)
[2019-11-26 00:23] LABS: ABG PH 7.28 (7.37-7.43)
[2019-11-26 00:24] LABS: ABG PO2 34 MMHG (79-93); ALLENS TEST YES-POS; INSPIRED O2 10L; VENTILATOR NO
[2019-11-26] MEDS ORDERED: LACTATED RINGERS 1,000 ML IV ONE (00:49)
[2019-11-26] MEDS ORDERED: ACETAMINOPHEN 325 MG TABLET PO PRN (01:00)
[2019-11-26] MEDS ORDERED: ACETAMINOPHEN 650 MG SUPP (TYLENOL) PR PRN ×2 (01:00→12:30)
[2019-11-26] MEDS ORDERED: ONDANSETRON 4 MG/2 ML (SDV) Z0FRAN IV PRN (01:00)
[2019-11-26] MEDS ORDERED: VASOPRESSIN 20 UNITS/NS 100 ML DRIP IV SCH ×2 (01:15)
--- NOTE | 2019-11-26 01:40 | NUR ---
SPACE LAB MACHINE DURING TRANSPORT TO THE ICU AND VITAL SIGNS WERE LOST.
[2019-11-26] MEDS: NOREPINEPHRINE 4 MG/250 ML 250 ML IV SCH ×2 (02:41→03:24)
[2019-11-26] MEDS: EPINEPHrine 1 MG INJECTION 4 MG in NS (IVPB) 246 ML IV SCH ×2 (02:41→07:40)
[2019-11-26] MEDS: LACTATED RINGERS 1,000 ML IV SCH ×3 (02:42→17:44)
[2019-11-26 03:46] LABS: BASOPHILS % (AUTO) 0 % (0-10); EOSINOPHILS % (AUTO) 0 % (0-10); HEMATOCRIT 34 % (35-52); HEMOGLOBIN 11.1 g/dL (11.5-16.0); LYMPHOCYTES # (AUTO) 0.8 10^3/uL (1.0-4.0); LYMPHOCYTES % (AUTO) 6 % (12-44); MEAN CORPUSCULAR HEMOGLOBIN 32 pg (25-34); MEAN CORPUSCULAR HGB CONC 32 g/dL (32-36); MEAN CORPUSCULAR VOLUME 98 fL (80-99); MEAN PLATELET VOLUME 12.1 fL (9.0-12.2); MONOCYTES % (AUTO) 7 % (0-12); NEUTROPHILS # (AUTO) 11.2 10^3/uL (1.8-7.8); NEUTROPHILS % (AUTO) 86 % (42-75); PLATELET COUNT 129 10^3/uL (130-400); WHITE BLOOD COUNT 13.1 10^3/uL (4.3-11.0)
[2019-11-26 03:54] LABS: ALBUMIN 3.2 GM/DL (3.2-4.5); POTASSIUM 4.3 MMOL/L (3.6-5.0)
[2019-11-26 03:56] LABS: CALCIUM 8.6 MG/DL (8.5-10.1)
[2019-11-26 03:57] LABS: TOTAL PROTEIN 5.2 GM/DL (6.4-8.2)
[2019-11-26 03:59] LABS: BILIRUBIN,TOTAL 1.1 MG/DL (0.1-1.0)
[2019-11-26 04:00] LABS: PHOSPHORUS 3.5 MG/DL (2.3-4.7)
[2019-11-26 04:01] LABS: CREATININE SERUM 2.07 MG/DL (0.60-1.30)
[2019-11-26 04:03] LABS: MAGNESIUM 1.5 MG/DL (1.6-2.4)
[2019-11-26] MEDS: MEROPENEM 500 MG/SWFI 10 ML IV PUSH IV SCH ×6 (05:15→21:28)
[2019-11-26] MEDS ORDERED: KCL 20 MEQ TAB (K-DUR) PO SCH (06:00)
[2019-11-26] MEDS ORDERED: MAGNESIUM 1 GM/100 ML IVPB 100 ML IV SCH (06:00)
[2019-11-26] MEDS ORDERED: POTASSIUM CL 10MEQ/50ML IVPB 50 ML IV SCH (06:00)
--- NOTE | 2019-11-26 06:16 | History & Physical-Hospitalist ---
History of Present Illness HPI/Chief Complaint CC: AMS with severe sepsis from UTI with ARF now at end stage process HPI: This is a 74yoWF clinic patient of mine who was just DC Wednesday from IRF and doing well with normal creatinine who presented to the ER via EMS after decreased LOC noted by AL staff and was covered with emesis on her clothes. Patient was evaluated in the ER and doung to have sepsis and ARF creat 2.3 and evidence of UTI w/h/o ESBL infection so Vanc and Meropenem started empirically. Hypotension requiring IVF and Levophed. Patient is on biPAP of which she does not wish to be on and patient is DNR and I updated son and will move her to 4th floor and gradually start comfort care. Patient has had a long decline in the past 5 years. Source: RN/MD Exam Limitations: clinical condition Date Seen 11/26/19 Time Seen by a Provider: 11:15 Attending Physician Clare Parada DO PCP Clare Parada DO Referring Physician Date of Admission Nov 25, 2019 at 22:50 Home Medications & Allergies Home Medications Reviewed patient Home Medication Reconciliation performed by pharmacy medication reconciliations computer aided design technician and/or nursing. Patients Allergies have been reviewed. Allergies Allergies Coded Allergies NSAIDS (Non-Steroidal Anti-Inflamma (Unverified Allergy, Mild, 03/18/09) Influenza Virus Vaccines (Verified Allergy, Unknown, 12/07/18) Penicillins (Verified Allergy, Unknown, 01/03/06) Sulfa (Sulfonamide Antibiotics) (Verified Allergy, Unknown, 01/03/06) aspirin (Verified Allergy, Unknown, 01/03/06) atorvastatin (Verified Allergy, Unknown, 12/07/18) carbamazepine (Verified Allergy, Unknown, 09/20/06) cephalexin (Verified Allergy, Unknown, 01/03/06) iodine (Verified Allergy, Unknown, 01/03/06) latex (Unverified Allergy, Unknown, 06/21/13) meloxicam (Verified Allergy, Unknown, 12/07/18) peanut (Verified Allergy, Unknown, 12/07/18) Past Dewdfwy-Xcbloy-Aqwsjp Hx Past Med/Social Hx: Reviewed Nursing Past Med/Soc Hx, Reviewed and Corrections made Patient Social History Marrital Status: Employed/Student: retired Alcohol Use: Denies Use Recreational Drug Use: No Smoking Status: Former Smoker Former Smoker, Quit: Mar 25, 1994 Type Used: Cigarettes 2nd Hand Smoke Exposure: No Recent Foreign Travel: No Contact w/other who traveled: No Recent Hopitalizations: No Recent Infectious Disease Expo: No Immunizations Up To Date Tetanus Booster (TDap): Unknown Pediatric: No Date of Pneumonia Vaccine: Sep 22, 2013 Date of Influenza Vaccine: Nov 22, 2017 Seasonal Allergies Seasonal Allergies: No Past Medical History Surgeries: Adenoidectomy, Appendectomy, Hysterectomy, Lumpectomy, Orthopedic, Tonsillectomy, Tubal Ligation Respiratory: COPD, Pneumonia, Sleep Apnea Currently Using CPAP: No Currently Using BIPAP: No Cardiac: Chronic Edema/Swelling, High Cholesterol, Hypertension Neurological: Dementia, Neuropathy Reproductive: No Sexually Transmitted Disease: No HIV/AIDS: No Female Reproductive Disorders: Denies Genitourinary: Renal Failure Gastrointestinal: Gastroesophageal Reflux, Gall Bladder Disease Musculoskeletal: Degenerate Disk Disease, Arthritis, Rheumatoid Arthritis, Chronic Back Pain Loss of Vision: Bilateral Hearing Impairment: Denies Cancer: Breast Did You Recieve Any Treatments: No What Type of Treatment Did You: Surgical Intervention Psychosocial: Anxiety, Depression History of Blood Disorders: Yes (IMMUNOGLOBULIN DEFICIENCY) Adverse Reaction to Blood Burrell: No Family History Cancer G8 SISTER Congestive heart failure 19 FATHER Family history: Cardiovascular disease 19 FATHER 19 MOTHER G8 BROTHER Family history: Coronary thrombosis 19 FATHER 19 MOTHER Family history: Hypertension 19 MOTHER Stroke 19 MOTHER G8 BROTHER No Pertinent Family Hx Review of Systems Constitutional: see HPI Physical Exam Physical Exam Vital Signs Vital Signs - First Documented 11/25/19 11/25/19 22:15 22:20 Temp 36.7 Pulse 87 Resp 28 B/P (MAP) 129/101 (110) Pulse Ox 90 O2 Delivery OxyMask O2 Flow Rate 10.00 FiO2 94 Capillary Refill : Less Than 3 Seconds Height, Weight, BMI Height: 5'4.00" Weight: 270lbs. 9.0oz. 122.860137db; 39.00 BMI Method:Stated General Appearance: Anxious, Chronically ill, Mild Distress, Other (on bipap won't open eyes) Respiratory: Lungs Clear, Decreased Breath Sounds Cardiovascular: Regular Rate, Rhythm Neurologic/Psychiatric: Disoriented, Other (won't open eyes) Results Results/Procedures Labs Laboratory Tests 11/25/19 22:20 11/26/19 03:35 Patient resulted labs reviewed. Assessment/Plan Admission Diagnosis Assessment: AMS ARF UTI End of life status CREST syndrome Plan: Comfort care protocol and will move to 4th floor and off pressors Admission Status: Inpatient Order (span 2 midnights) Reason for Inpatient Admission: sepsis Diagnosis/Problems Diagnosis/Problems (1) Delirium due to another medical condition Status: Acute (2) UTI (urinary tract infection) Status: Acute Qualifiers: Urinary tract infection type: acute cystitis Hematuria presence: with hematuria Qualified Codes: N30.01 - Acute cystitis with hematuria (3) Elevated troponin Status: Acute (4) Sepsis Status: Acute Qualifiers: Sepsis type: sepsis due to unspecified organism Sepsis acute organ dysfunction status: with acute organ dysfunction Severe sepsis acute organ dysfunction type: acute renal failure Acute renal failure type: unspecified Severe sepsis shock status: without septic shock Qualified Codes: A41.9 - Sepsis, unspecified organism; R65.20 - Severe sepsis without septic shock; N17.9 - Acute kidney failure, unspecified (5) Acute kidney insufficiency Status: Acute (6) Obesity hypoventilation syndrome Status: Chronic (7) Posterior reversible encephalopathy syndrome (PRES) Status: Chronic (8) LEIGHANN (acute kidney injury) Status: Resolved Resolution Date/Time: 02/20/18 @ 18:58 (9) Non-insulin dependent type 2 diabetes mellitus (10) COPD exacerbation Status: Resolved (11) Essential (primary) hypertension Status: Chronic (12) Altered mental status Status: Resolved Resolution Date/Time: 02/21/18 @ 13:32 (13) Hypoxia Status: Acute (14) Renal insufficiency Status: Chronic (15) Lymphedema Status: Chronic (16) CHF (congestive heart failure) Status: Chronic Clinical Quality Measures DVT/VTE Risk/Contraindication: Risk Factor Score Per Nursin RFS Level Per Nursing on Admit: 4+=Very High CLARE PARADA DO Nov 26, 2019 06:16
--- NOTE | 2019-11-26 07:46 | Diagnostic Imaging Report ---
PROCEDURE: CT head and CT cervical spine without contrast. TECHNIQUE: Multiple contiguous axial images were obtained through the brain and cervical spine without the use of intravenous contrast. Sagittal and coronal reformations through the cervical spine were then performed. Auto Exposure Controls were utilized during the CT exam to meet ALARA standards for radiation dose reduction. Indication: Fall with head and neck pain, sepsis. Comparison: Head CT 01/29/[address] 04/19/2017. Discussion: Head: No adverse interval change. Mild diffuse brain volume loss is stable, likely age related. White matter hypoattenuation is nonspecific though not greater than expected for age related chronic small vessel ischemic disease, stable. No acute intracranial hemorrhage, mass, midline shift, or hydrocephalus. The orbits, sinuses, mastoid air cells, and calvarium are unremarkable. Cervical spine: Left thyroid nodule of uncertain etiology. Recommend nonemergent thyroid ultrasound to further evaluate. Right-sided port is noted. Paraspinal soft tissues are otherwise unremarkable. There is moderately advanced degenerative disc disease noted particularly at the C5-C6 and C6-C7 level. Grade 1 anterolisthesis of C3 on C4, likely due to facet arthropathy. Advanced facet arthropathy is noted diffusely. Impression: 1. No acute intracranial abnormality identified. Stable senescent changes as described. 2. Stable degenerative disease within the cervical spine. No acute fracture. 3. Agree with preliminary report. Dictated by: Dictated on workstation # [id number]
--- NOTE | 2019-11-26 07:48 | Diagnostic Imaging Report ---
INDICATION: Sepsis, shortness of air COMPARISON STUDY: Chest from October the . FINDINGS: A portable upright view of the chest demonstrates resolution of the right basilar infiltrates. A left lower lobe infiltrate and left effusion are stable. Heart size remains enlarged with mild congestion. Central venous catheter remains in place. Postoperative changes to the spine are again identified. IMPRESSION: There has been resolution of the right basilar infiltrates with stable left lower lobe infiltrates, left effusion and cardiomegaly. Mild pulmonary congestion is present. Dictated by: Dictated on workstation # [id number]
[2019-11-26] MEDS: RT-ALBUTEROL INHALER HFA (VENTOLIN HFA) 18 GM IH SCH ×2 (07:59→10:22)
--- NOTE | 2019-11-26 08:32 | NUR ---
THIS RN ATTEMPTED DYSPHAGIA SCREENING AT THIS TIME. PT REFUSED TO TRY TO TAKE A SIP OF WATER. PO METOPROLOL NON-ADMINISTERED ON .
[2019-11-26 11:06] LABS: ABG BASE EXCESS 12.4 MMOL/L (-2.5-2.5); ABG OXYGEN SATURATION 99 % (94-100); ABG PCO2 45 MMHG (35-45); ABG PH 7.52 (7.37-7.43); ABG PO2 127 MMHG (79-93); ABG TCO2 37.9 MMOL/L (21.0-31.0)
[2019-11-26 11:09] LABS: ALLENS TEST POS; INSPIRED O2 40%; PATIENT TEMP 36.2; VENTILATOR NO
[2019-11-26] MEDS ORDERED: BISACODYL 10 MG SUPP (DULCOLAX) PR PRN (12:30)
[2019-11-26] MEDS ORDERED: GLYCOPYRROLATE 0.2 MG/ML (ROBINUL) 2 ML VIAL IV PRN (12:30)
[2019-11-26] MEDS ORDERED: SALIVA STIMULANT MOUTH SPRAY (BIOTENE) 1.5 OZ MM PRN (12:30)
[2019-11-26] MEDS ORDERED: RT-ALBUTEROL/IPRATROPIUM 3 ML (DUONEB) VIAL INH PRN (12:30)
[2019-11-26] MEDS ORDERED: ONDANSETRON 4 MG/2 ML (SDV) Z0FRAN IVP PRN (12:30)
[2019-11-26] MEDS ORDERED: ARTIFICAL TEARS 0.4 ML UNIT DOSE (REFRESH PLUS) OU PRN (12:30)
--- NOTE | 2019-11-26 13:35 | NUR ---
PT REMOVED FROM BIPAP AND LEVOPHED STOPPED AT THIS TIME. 4MG MORPHINE ADMINISTERED TO PT. SON AT PT'S BEDSIDE WEARING FULL PPE CONSISTING OF GOWN, GLOVES, MASK, AND FACE SHIELD.
[2019-11-26] MEDS: morphine INJ 4 MG/ML 1 ML (VIAL/SYRINGE) IV PRN ×3 (13:38→21:34)
[2019-11-26] MEDS ORDERED: RT-ALBUTEROL INHALER HFA (VENTOLIN HFA) 18 GM IH PRN (14:00)
[2019-11-26] MEDS: LORazepam INJ 2 MG/ML (ATIVAN) VIAL IVP PRN ×3 (14:19→21:27)
[2019-11-26] MEDS ORDERED: WATER (STERILE) FOR INJECTION 10 ML ONE (20:53)
[2019-11-26] MEDS ORDERED: MEROPENEM 500 MG VIAL (MERREM) IV ONE (20:53)
[2019-11-26] MEDS ORDERED: VANCOMYCIN 750 MG/NS 250 ML IVPB IV SCH ×2 (22:00)
[2019-11-27] MEDS: LORazepam INJ 2 MG/ML (ATIVAN) VIAL IVP PRN (00:44)
[2019-11-27] MEDS: morphine INJ 4 MG/ML 1 ML (VIAL/SYRINGE) IV PRN ×3 (02:53→19:54)
[2019-11-27 05:20] LABS: BASOPHILS % (AUTO) 0 % (0-10); EOSINOPHILS % (AUTO) 0 % (0-10); HEMATOCRIT 31 % (35-52); HEMOGLOBIN 10.1 g/dL (11.5-16.0); LYMPHOCYTES # (AUTO) 1.1 10^3/uL (1.0-4.0); LYMPHOCYTES % (AUTO) 15 % (12-44); MEAN CORPUSCULAR HEMOGLOBIN 32 pg (25-34); MEAN CORPUSCULAR HGB CONC 33 g/dL (32-36); MEAN CORPUSCULAR VOLUME 99 fL (80-99); MEAN PLATELET VOLUME 12.3 fL (9.0-12.2); MONOCYTES # (AUTO) 0.7 10^3/uL (0.0-1.0); MONOCYTES % (AUTO) 10 % (0-12); NEUTROPHILS # (AUTO) 5.3 10^3/uL (1.8-7.8); NEUTROPHILS % (AUTO) 75 % (42-75); PLATELET COUNT 109 10^3/uL (130-400); WHITE BLOOD COUNT 7.1 10^3/uL (4.3-11.0)
[2019-11-27] MEDS ORDERED: MEROPENEM 500 MG VIAL (MERREM) IV ONE (05:37)
[2019-11-27] MEDS ORDERED: WATER (STERILE) FOR INJECTION 10 ML ONE (05:37)
[2019-11-27 05:43] LABS: ALBUMIN 2.8 GM/DL (3.2-4.5)
[2019-11-27 05:44] LABS: POTASSIUM 3.5 MMOL/L (3.6-5.0)
[2019-11-27 05:45] LABS: CALCIUM 8.3 MG/DL (8.5-10.1)
[2019-11-27 05:46] LABS: TOTAL PROTEIN 4.5 GM/DL (6.4-8.2)
[2019-11-27] MEDS: MEROPENEM 500 MG/SWFI 10 ML IV PUSH IV SCH ×2 (05:46)
[2019-11-27 05:50] LABS: CREATININE SERUM 1.45 MG/DL (0.60-1.30)
--- NOTE | 2019-11-27 05:54 | NUR ---
COVID NEGATIVE. MADERA OK TO REMOVE FROM ISOLATION.
[2019-11-27] MEDS: LACTATED RINGERS 1,000 ML IV SCH (08:17)
[2019-11-27] MEDS ORDERED: MORP20SO PO (10:31)
[2019-11-27] MEDS ORDERED: LORA2ORA PO (10:31)
--- NOTE | 2019-11-27 10:32 | Discharge Summary ---
Discharge Summary Hospital Course Was the Problem List Reviewed?: Yes Problems/Dx: (1) Delirium due to another medical condition Status: Acute (2) UTI (urinary tract infection) Status: Acute Qualifiers: Qualified Codes: N30.01 - Acute cystitis with hematuria (3) Elevated troponin Status: Acute (4) Sepsis Status: Acute Qualifiers: Qualified Codes: A41.9 - Sepsis, unspecified organism; R65.20 - Severe sepsis without septic shock; N17.9 - Acute kidney failure, unspecified (5) Acute kidney insufficiency Status: Acute (6) Obesity hypoventilation syndrome Status: Chronic (7) Posterior reversible encephalopathy syndrome (PRES) Status: Chronic (8) LEIGHANN (acute kidney injury) Status: Resolved (9) Non-insulin dependent type 2 diabetes mellitus (10) COPD exacerbation Status: Resolved (11) Essential (primary) hypertension Status: Chronic (12) Altered mental status Status: Resolved (13) Hypoxia Status: Acute (14) Renal insufficiency Status: Chronic (15) Lymphedema Status: Chronic (16) CHF (congestive heart failure) Status: Chronic Hospital Course Date of Admission: Nov 25, 2019 at 22:50 Admission Diagnosis : Family Physician/Provider: Clare Parada DO Date of Discharge: 11/27/19 Discharge Diagnosis: Assessment: AMS ARF UTI End of life status CREST syndrome Plan: Comfort care protocol and will move to 4th floor and off pressors Hospital Course: Hospital Course: Pt had a brief hospital course. She was admitted for or altered mental status an sepsis with UTI and acute renal failure. She required pressor therapy fro significant severe sepsis but family maintained her DNR status, wanted comfort care, IV fluids were DC, antibiotics were DC and it was decided to go back to [facility] on hospice so that will be arranged. Morphine and Ativan liquid prescriptions written. Labs and Pending Lab Test: Laboratory Tests 11/26/19 10:47: Blood Gas Puncture Site RTRAD, Blood Gas Patient Temperature 36.2, Arterial Blood pH 7.52H, Arterial Blood Partial Pressure CO2 45, Arterial Blood Partial Pressure O2 127H, Arterial Blood HCO3 37H, Arterial Blood Total CO2 37.9H, Arterial Blood Oxygen Saturation 99, Arterial Blood Base Excess 12.4H, Izaiah Test POS, Blood Gas Ventilator Setting NO, Blood Gas Inspired Oxygen 40% 11/26/19 10:54: Troponin I 0.565*H 11/27/19 04:15: White Blood Count 7.1, Red Blood Count 3.15L, Hemoglobin 10.1L, Hematocrit 31L, Mean Corpuscular Volume 99, Mean Corpuscular Hemoglobin 32, Mean Corpuscular Hemoglobin Concent 33, Red Cell Distribution Width 13.5, Platelet Count 109L, Mean Platelet Volume 12.3H, Immature Granulocyte % (Auto) 0, Neutrophils (%) (Auto) 75, Lymphocytes (%) (Auto) 15, Monocytes (%) (Auto) 10, Eosinophils (%) (Auto) 0, Basophils (%) (Auto) 0, Neutrophils # (Auto) 5.3, Lymphocytes # (Auto) 1.1, Monocytes # (Auto) 0.7, Eosinophils # (Auto) 0.0, Basophils # (Auto) 0.0, Immature Granulocyte # (Auto) 0.0, Sodium Level 140, Potassium Level 3.5L, Chloride Level 104, Carbon Dioxide Level 26, Anion Gap 10, Blood Urea Nitrogen 23H, Creatinine 1.45H, Estimat Glomerular Filtration Rate 35, BUN/Creatinine Ratio 16, Glucose Level 65L, Calcium Level 8.3L, Corrected Calcium 9.3, Total Bilirubin 1.0, Aspartate Amino Transf (AST/SGOT) 37H, Alanine Aminotransferase (ALT/SGPT) 23, Alkaline Phosphatase 45, Total Protein 4.5L, Albumin 2.8L Microbiology 11/26/19 MRSA Screen - Final, Complete MRSA not isolated 11/25/19 Blood Culture - Preliminary, Resulted No growth 11/25/19 Urine Culture - Preliminary, Resulted Probable E.coli Home Meds Active Morphine Sulfate 20 Mg/5 Ml Solution 20 Mg PO Q3HR Lorazepam Intensol (Lorazepam) 2 Mg/1 Ml Oral.conc 1 Mg PO Q2H PRN Lotrimin AF (Miconazole Nitrate) 90 Gm Powder 0 Gm TOP BID Amlodipine Besylate 5 Mg Tablet 5 Mg PO DAILY Nystatin 100,000 Unit/1 Ml Oral.susp 5 Ml PO Q6HR Reported Lactulose 10 Gm/15 Ml Solution 30 Ml PO TID PRN Vitamin D3 (Cholecalciferol (Vitamin D3)) 50 Mcg Tablet 50 Mcg PO HS Locoid 0.1% Lipocream (Hydrocortisone Butyrate/Emoll) 15 Gm Cream..g. 1 Applic TP BID PRN Montelukast Sodium 10 Mg Tablet 10 Mg PO HS Neurontin (Gabapentin) 300 Mg Capsule 300 Mg PO HS Triamcinolone Acetonide 0.1% Cream (Triamcinolone Acet) 15 Gm Cr 1 Applic TP BID PRN APPLY TO LEFT LEG Bumetanide 2 Mg Tablet 2 Mg PO DAILY PRN USE IF GAINED MORE THAN 5 POUNDS A DAY Guaifenesin Dm Syrup (Guaifenesin/Dextromethorphan) 5 Ml Syrup 5 Ml PO Q6H PRN Topiramate 25 Mg Tablet 25 Mg PO HS Iprat-Albut 0.5-3(2.5) mg/3 ml (Ipratropium/Albuterol Sulfate) 3 Ml Ampul.neb 3 Ml NEB 0800,1600 Iron (Ferrous Sulfate) 325 Mg Tablet 325 Mg PO DAILY Enalapril Maleate 2.5 Mg Tablet 2.5 Mg PO DAILY Ipratropium [place] 0.2 Mg/1 Ml Solution 0.2 Mg NEB TID PRN Guaifenesin AC Cough Syrup (Guaifenesin/Codeine Phosphate) 473 Ml Liquid 5 Ml PO Q6H PRN Oxycodone HCl 20 Mg Tablet 20 Mg PO 0600,1400,2200 Cranberry (Cranberry Fruit) 400 Mg Tablet 400 Mg PO BID Allopurinol 100 Mg Tablet 100 Mg PO DAILY Vitamin C (Ascorbate Calcium) 500 Mg Tablet 500 Mg PO DAILY Detrol LA (Tolterodine Tartrate) 4 Mg Cap 4 Mg PO DAILY Macrodantin (Nitrofurantoin Macrocrystal) 100 Mg Capsule 100 Mg PO 1700 TAKE WITH DINNER Calmoseptine Ointment (Menthol/Lanolin/Calamine/Znox) 71 Gm Oint 1 Applic TP UD PRN APPLY TO JARETT AREA Oxycodone HCl 20 Mg Tablet 20 Mg PO Q6H PRN Simvastatin 20 Mg Tablet 20 Mg PO HS Plavix (Clopidogrel Bisulfate) 75 Mg Tablet 75 Mg PO DAILY Allergy Relief (Cetirizine HCl) 10 Mg Tablet 10 Mg PO DAILY Carvedilol 12.5 Mg Tablet 12.5 Mg PO BID Duloxetine HCl 60 Mg Capsule.dr 60 Mg PO DAILY Hydroxychloroquine Sulfate 200 Mg Tablet 200 Mg PO 1200,1700 TAKES WITH FOOD Nexium (Esomeprazole Magnesium) 40 Mg Cap 40 Mg PO HS Advair 250-50 Diskus (Fluticasone/Salmeterol) 1 Each Blst.w.dev 1 Puff IH DAILY Fluticasone Propionate 16 Gm [place].susp 1 [place] NS DAILY PRN Potassium Chloride 10 Meq Capsule.er 20 Meq PO 1200,1700 TAKES 2 (10MEQ) CAPSULES TAKES WITH FOOD Assessment/Pt Instructions Hospice enrollment Discharge Planning: <30 minutes discharge planning Discharge Instructions Discharge Diet: No Restrictions Activity as Tolerated: Yes Discharge Physical Examination Vital Signs Vital Signs Date Time Temp Pulse Resp B/P (MAP) Pulse Ox O2 Delivery O2 Flow Rate FiO2 11/26/19 20:00 Nasal Cannula 2.00 11/26/19 18:00 68 14 118/53 (74) 11/26/19 17:00 90 11/26/19 09:36 36.2 11/25/19 22:20 94 General Appearance: No Apparent Distress, WD/WN Respiratory: Normal Breath Sounds Cardiovascular: Regular Rate, Rhythm Neurologic/Psychiatric: Alert, Oriented x3 Allergies: Coded Allergies: NSAIDS (Non-Steroidal Anti-Inflamma (Unverified Allergy, Mild, 03/18/09) Influenza Virus Vaccines (Verified Allergy, Unknown, 12/07/18) Penicillins (Verified Allergy, Unknown, 01/03/06) Sulfa (Sulfonamide Antibiotics) (Verified Allergy, Unknown, 01/03/06) aspirin (Verified Allergy, Unknown, 01/03/06) atorvastatin (Verified Allergy, Unknown, 12/07/18) carbamazepine (Verified Allergy, Unknown, 09/20/06) cephalexin (Verified Allergy, Unknown, 01/03/06) iodine (Verified Allergy, Unknown, 01/03/06) latex (Unverified Allergy, Unknown, 06/21/13) meloxicam (Verified Allergy, Unknown, 12/07/18) peanut (Verified Allergy, Unknown, 12/07/18) Discharge Summary Date of Admission Nov 25, 2019 at 22:50 Date of Discharge Discharge Date: Nov 27, 2019 Admission Diagnosis Assessment: AMS ARF UTI End of life status CREST syndrome Plan: Comfort care protocol and will move to 4th floor and off pressors Comfort Measures/ End of Life Care: Comfort Measures Discharge Diagnosis (1) Delirium due to another medical condition Status: Acute (2) UTI (urinary tract infection) Status: Acute Qualifiers: Qualified Codes: N30.01 - Acute cystitis with hematuria (3) Elevated troponin Status: Acute (4) Sepsis Status: Acute Qualifiers: Qualified Codes: A41.9 - Sepsis, unspecified organism; R65.20 - Severe sepsis without septic shock; N17.9 - Acute kidney failure, unspecified (5) Acute kidney insufficiency Status: Acute (6) Obesity hypoventilation syndrome Status: Chronic (7) Posterior reversible encephalopathy syndrome (PRES) Status: Chronic (8) LEIGHANN (acute kidney injury) Status: Resolved (9) Non-insulin dependent type 2 diabetes mellitus (10) COPD exacerbation Status: Resolved (11) Essential (primary) hypertension Status: Chronic (12) Altered mental status Status: Resolved (13) Hypoxia Status: Acute (14) Renal insufficiency Status: Chronic (15) Lymphedema Status: Chronic (16) CHF (congestive heart failure) Status: Chronic Clinical Quality Measures DVT/VTE Risk/Contraindication: Risk Factor Score Per Nursin RFS Level Per Nursing on Admit: 4+=Very High CLARE PARADA DO Nov 27, 2019 10:32
--- NOTE | 2019-11-27 11:54 | NUR ---
PALLIATIVE CARE RN in to see the patient. Friend is at bedside. I then called and spoke with patient's son, Herman and SARAH Bond. They confirm the plan is to enlist the help of hospice to care for patient back at her previous placement at [facility]. I have called and spoken to CP, to make sure that this is OKAY with them. They confirm they can take her back with hospice. Choices have been given to son and SARAH and they will make some phone calls and let me know the choice. She is not at her usual level of consciousness and will likely require require an EMS transport due to her extreme weakness. Will assess
--- NOTE | 2019-11-27 13:25 | NUR ---
DISCHARGE PLANNING: Patient is to discharge today to her previous placement at [facility]. She will transport by EMS due to her bed bound status. Family has chosen [facility] I will send clinical information to them.
--- NOTE | 2019-11-27 13:56 | NUR ---
CHANGE Final discharge plan has changed for today. Received call from a very rude cyber security administrator from [facility], who reports that patient "will not be allowed to return until she has been assessed by the nurse, which will be back tomorrow morning". I have told the son and DIL as well as notified [facility] of date of discharge. If they decline to accept her back then a facility will need to be located for acceptance. I did talk to family about the possibility of taking patient to their home. That is in consideration.
--- NOTE | 2019-11-27 14:01 | NUR ---
[facility] [employer] CALLED AND REFUSED PT TODAY STATING SHE DID NOT HAVE A NURSE AVAILABLE TO ASSESS. DR. MADERA NOTIFIED. DISCHARGE CANCELLED FOR TODAY. ASH PALLIATIVE RN AWARE.
--- NOTE | 2019-11-27 16:00 | NUR ---
This RN received call back from [facility] who has accepted the patient pending refusal of return to [facility] after RN assesses in the morning.
--- NOTE | 2019-11-28 09:08 | Discharge Summary ---
Discharge Summary Hospital Course Was the Problem List Reviewed?: Yes Problems/Dx: (1) Delirium due to another medical condition Status: Acute (2) UTI (urinary tract infection) Status: Acute Qualifiers: Qualified Codes: N30.01 - Acute cystitis with hematuria (3) Elevated troponin Status: Acute (4) Sepsis Status: Acute Qualifiers: Qualified Codes: A41.9 - Sepsis, unspecified organism; R65.20 - Severe sepsis without septic shock; N17.9 - Acute kidney failure, unspecified (5) Acute kidney insufficiency Status: Acute (6) Obesity hypoventilation syndrome Status: Chronic (7) Posterior reversible encephalopathy syndrome (PRES) Status: Chronic (8) LEIGHANN (acute kidney injury) Status: Resolved (9) Non-insulin dependent type 2 diabetes mellitus (10) COPD exacerbation Status: Resolved (11) Essential (primary) hypertension Status: Chronic (12) Altered mental status Status: Resolved (13) Hypoxia Status: Acute (14) Renal insufficiency Status: Chronic (15) Lymphedema Status: Chronic (16) CHF (congestive heart failure) Status: Chronic Hospital Course Date of Admission: Nov 25, 2019 at 22:50 Admission Diagnosis : Family Physician/Provider: Clare Parada DO Date of Discharge: 11/28/19 Discharge Diagnosis: Assessment: AMS ARF UTI End of life status CREST syndrome Plan: Comfort care protocol and will move to 4th floor and off pressors Hospital Course: Pt had a delay of discharge by one day due to transitioning over to halfway in [place] instead of going back to [facility] in assisted living since the DON could not accommodate her. I did update her son Herman at the bedside, and Pt was confused but in the end-stage of her life. See previously dictated discharge note yesterday. Labs and Pending Lab Test: Microbiology 11/26/19 MRSA Screen - Final, Complete MRSA not isolated 11/25/19 Blood Culture - Preliminary, Resulted No growth 11/25/19 Urine Culture - Preliminary, Resulted Escherichia coli Home Meds Active Morphine Sulfate 20 Mg/5 Ml Solution 20 Mg PO Q3HR Lorazepam Intensol (Lorazepam) 2 Mg/1 Ml Oral.conc 1 Mg PO Q2H PRN Lotrimin AF (Miconazole Nitrate) 90 Gm Powder 0 Gm TOP BID Reported Oxycodone HCl 20 Mg Tablet 20 Mg PO 0600,1400,2200 Oxycodone HCl 20 Mg Tablet 20 Mg PO Q6H PRN Assessment/Pt Instructions [facility] Discharge Planning: <30 minutes discharge planning Discharge Instructions Discharge Diet: No Restrictions Activity as Tolerated: Yes Discharge Physical Examination Vital Signs Vital Signs Date Time Temp Pulse Resp B/P (MAP) Pulse Ox O2 Delivery O2 Flow Rate FiO2 11/27/19 20:02 Nasal Cannula 1.00 11/26/19 18:00 68 14 118/53 (74) 11/26/19 17:00 90 11/26/19 09:36 36.2 11/25/19 22:20 94 General Appearance: No Apparent Distress, WD/WN, Chronically ill, Obese Respiratory: Normal Breath Sounds Cardiovascular: Regular Rate, Rhythm Neurologic/Psychiatric: Alert, Disoriented Allergies: Coded Allergies: NSAIDS (Non-Steroidal Anti-Inflamma (Unverified Allergy, Mild, 03/18/09) Influenza Virus Vaccines (Verified Allergy, Unknown, 12/07/18) Penicillins (Verified Allergy, Unknown, 01/03/06) Sulfa (Sulfonamide Antibiotics) (Verified Allergy, Unknown, 01/03/06) aspirin (Verified Allergy, Unknown, 01/03/06) atorvastatin (Verified Allergy, Unknown, 12/07/18) carbamazepine (Verified Allergy, Unknown, 09/20/06) cephalexin (Verified Allergy, Unknown, 01/03/06) iodine (Verified Allergy, Unknown, 01/03/06) latex (Unverified Allergy, Unknown, 06/21/13) meloxicam (Verified Allergy, Unknown, 12/07/18) peanut (Verified Allergy, Unknown, 12/07/18) Discharge Summary Date of Admission Nov 25, 2019 at 22:50 Date of Discharge Discharge Date: Nov 27, 2019 Admission Diagnosis Assessment: AMS ARF UTI End of life status CREST syndrome Plan: Comfort care protocol and will move to 4th floor and off pressors Comfort Measures/ End of Life Care: Comfort Measures Discharge Diagnosis (1) Delirium due to another medical condition Status: Acute (2) UTI (urinary tract infection) Status: Acute Qualifiers: Qualified Codes: N30.01 - Acute cystitis with hematuria (3) Elevated troponin Status: Acute (4) Sepsis Status: Acute Qualifiers: Qualified Codes: A41.9 - Sepsis, unspecified organism; R65.20 - Severe sepsis without septic shock; N17.9 - Acute kidney failure, unspecified (5) Acute kidney insufficiency Status: Acute (6) Obesity hypoventilation syndrome Status: Chronic (7) Posterior reversible encephalopathy syndrome (PRES) Status: Chronic (8) LEIGHANN (acute kidney injury) Status: Resolved (9) Non-insulin dependent type 2 diabetes mellitus (10) COPD exacerbation Status: Resolved (11) Essential (primary) hypertension Status: Chronic (12) Altered mental status Status: Resolved (13) Hypoxia Status: Acute (14) Renal insufficiency Status: Chronic (15) Lymphedema Status: Chronic (16) CHF (congestive heart failure) Status: Chronic Clinical Quality Measures DVT/VTE Risk/Contraindication: Risk Factor Score Per Nursin RFS Level Per Nursing on Admit: 4+=Very High CLARE PARADA DO Nov 28, 2019 09:08
--- NOTE | 2019-11-28 09:41 | NUR ---
DISCHARGE PLANNING: This RN has been to patient room to see her, talk with son and to find out if [facility] nurse has been here to assess whether patient can return to them today. Son is in the room and is unaware if nurse has done her assessment. Patient did have her eyes open tomorrow today. I called and spoke with Letitia at . Nurse is not in yet and is expected by noon. I explained that I really needed her to assess patient before this and told her to state her business when is checking in.
--- NOTE | 2019-11-28 11:00 | NUR ---
FINAL DISCHARGE PLAN: Spoke to the RN with [facility] and based on what she is saying the patient's requirements are, she will not meet the criteria to return to her supervisor intermediates placement with them. I spoke to son, Herman and to [facility]. Her bed is still available and patient will discharge to them using EMS due to inability to get out of bed. [facility] will be initiated upon arrival.
[2019-11-28] MEDS: morphine INJ 4 MG/ML 1 ML (VIAL/SYRINGE) IV PRN (11:09)
[2019-11-28] MEDS: LORazepam INJ 2 MG/ML (ATIVAN) VIAL IVP PRN (11:33)
--- NOTE | 2019-11-28 12:03 | NUR ---
CALLED REPORT TO SHAWN AT [facility]
[2019-11-28 12:15] VITALS: BP 118/53
== END 2019-11-28 12:15 | disposition hospice, inpatient (51) | DRG 871 ==
LOC: EDUNIT# 21:48 → ER 21:53 → ICU 22:50 → 4TH 11-26 19:29
PROVIDERS: ADMIT Internal Medicine; ATTEND Internal Medicine
DX: A41.9 Sepsis, unspecified organism (principal); N18.6 End stage renal disease; N39.0 Urinary tract infection, site not specified; N17.9 Acute kidney failure, unspecified; I13.2 Hypertensive heart and chronic kidney disease with heart failure and with stage 5 chronic kidney disease, or end stage renal disease; E66.2 Morbid (severe) obesity with alveolar hypoventilation; Z68.41 Body mass index [BMI] 40.0-44.9, adult; J44.1 Chronic obstructive pulmonary disease with (acute) exacerbation; D80.9 Immunodeficiency with predominantly antibody defects, unspecified; Z66 Do not resuscitate; R65.20 Severe sepsis without septic shock; I50.9 Heart failure, unspecified; I95.9 Hypotension, unspecified; M34.1 CR(E)ST syndrome; I89.0 Lymphedema, not elsewhere classified; R09.02 Hypoxemia; E11.40 Type 2 diabetes mellitus with diabetic neuropathy, unspecified; E78.00 Pure hypercholesterolemia, unspecified; K21.9 Gastro-esophageal reflux disease without esophagitis; M06.9 Rheumatoid arthritis, unspecified; M54.9 Dorsalgia, unspecified; M19.91 Primary osteoarthritis, unspecified site; F32.9 Major depressive disorder, single episode, unspecified; Z88.6 Allergy status to analgesic agent; Z99.81 Dependence on supplemental oxygen; Z87.891 Personal history of nicotine dependence; Z85.3 Personal history of malignant neoplasm of breast; Z98.1 Arthrodesis status
CPT/HCPCS: 36415; 36600; 70450; 71045; 72125; 80053; 81000; 82805; 83605; 83735; 83880; 84100; 84484; 85025; 85610; 85730; 87040; 87077; 87081; 87088; 87184; 87186; 87635; 87804; 93005; 94640; 94660; 96374; 96375